=== PATIENT | female | born 1945 | race Caucasian/White ===

== ENCOUNTER → 2018-02-11 16:42 | Outpatient (CLI) | payer MEDICARE, SELFPAY ==
[2018-02-11 17:38] LABS: Absolute Lymphocyte Count 2.69 X10^3/ul (0.83-4.51); Basophil# 0.02 X10^3/uL; Basophil% 0.2 % (0-1); Eosinophil# 0.74 X10^3/uL; Eosinophils% 7.3 % (0-5); Hematocrit 41.5 % (37-47); Hemoglobin 13.6 g/dl (12.0-15.0); Lymphocyte # 2.69 X10^3/ul (4.0); Lymphocyte % 26.7 % (19-41); Mean Corp Hgb Conc 32.8 g/gl (32-36); Mean Corpuscular Hgb 28.2 pg (27.0-32.0); Mean Corpuscular Volume 86.1 fL (81-99); Mean Platelet Vol. 9.5 fl (6.2-12.0); Monocyte# 0.65 X10^3/uL; Monocyte% 6.5 % (0-10); Neutrophil # 5.95 X10^3/uL (2.7-7.7); Neutrophil % 59.1 % (47-70); Platelet Count 297 K/mm3 (150-450); RBC Distribution Width CV 16.4 % (11.6-14.6); RBC Distribution Width SD 51.7 fl (35.1-43.9); Red Blood Count 4.82 M/mm3 (4.2-5.4); White Blood Count 10.1 K/mm3 (4.4-11.0)
[2018-02-11 17:39] LABS: POSITIVE COUNT NO; POSITIVE DIFFERENTIAL NO; POSITIVE MORPHOLOGY NO
[2018-02-11 18:18] LABS: ALB/GLOB Ratio 0.8 RATIO (0.9-2.4); AST(SGOT) 12 U/L (15-37); Alanine Aminotransfer ALT/SGPT 16 U/L (13-56); Albumin, Serum 3.5 g/dL (3.2-5.0); Alkaline Phosphatase 87 U/L (45-117); Anion Gap 10 (5-15); BUN 13 mg/dL (7-18); BUN/Creat Ratio 19.6 RATIO (10-20); Calcium,Total 9.1 mg/dL (8.5-10.1); Chloride 104 mmol/L (98-107); Creatinine, Serum 0.66 mg/dL (0.55-1.02); EST Glomerular Filtration Rate 93 mL/min (>60); Est Glom Filt Rate - Afr Amer 113 mL/min (>60); Globulin 4.3 g/dL (2.2-4.2); Glucose 96 mg/dL (74-106); Potassium 3.8 mmol/L (3.5-5.1); Protein, Total 7.8 g/dL (6.4-8.2); Sodium Level 142 mmol/L (136-145); Thyroid Stim Hormone (TSH) 1.07 uIU/mL (0.358-3.74)
[2018-02-12 10:52] LABS: Vitamin D,25 Hydroxy 29.1 ng/mL (29.95-100.01)
[2018-02-13 10:20] LABS: Hep C Antibodies <0.1 s/co ratio (0.0-0.9)
== END ==
PROVIDERS: Family Provider Family Medicine Geriatric Medicine; PCP Family Medicine Geriatric Medicine; Visit Provider Family Medicine Geriatric Medicine
DX: R53.83 Other fatigue (principal); E55.9 Vitamin D deficiency, unspecified; Z13.89 Encounter for screening for other disorder
CPT/HCPCS: 36415; 80053; 82306; 84443; 85025; 86803

== ENCOUNTER → 2018-03-13 15:07 | Outpatient (CLI) | payer MEDICARE, SELFPAY ==
--- NOTE | 2018-03-13 15:09 | BI_ITS ---
MAMMOGRAPHY - BILATERAL SCREENING REASON FOR EXAM: Female, 72 years old. Routine annual screening examination. PERTINENT HISTORY: Non-contributory. TECHNIQUE: Digital bilateral breast gabriella (3D mammographic acquisition) in the CC and MLO projections. 2-D mediolateral oblique (MLO) and craniocaudad (CC) views of both breasts were obtained. CAD: Full Field Digital Mammography with Computer Added Detection was performed. COMPARISON: Comparison is made with prior study dated February 02, 2016 and December 10, 2013. FINDINGS: Breast Composition: The breasts are heterogeneously dense, which may obscure small masses. There are no dominant masses or suspicious calcifications. No other significant abnormalities are identified. There has been no significant change since the prior study. BI/SCREENING MAMM (CAD), BILAT IMPRESSION: Stable bilateral screening mammogram. Yearly follow-up mammogram recommended. (A) ASSESSMENT CATEGORY: BIRADS Category 1: Negative. A letter regarding these results will be sent to the patient by the facility within 30 days. Approximately 10% of breast cancers are not detected by mammography. A normal mammogram should not delay biopsy of a clinically suspicious abnormality. [id number] Electronically Signed: Mao Rodgers MD at 8:08 EDT Tel [phone], Service support ,
--- NOTE | 2018-03-13 15:11 | BD_ITS ---
STUDY: DUAL ENERGY X-RAY ABSORPTIOMETRY / DXA REASON FOR EXAM: Female, 72 years old. The patient is postmenopausal. Loss of height. TECHNIQUE: Bone Mineral Density (BMD) measurements of lumbar spine and bilateral hips were obtained. COMPARISON: Comparison is made with prior study dated February 02, 2016. FINDINGS: Lumbar Spine (L1-L4): g/cm2 (1.155) / T-score (-0.2) / Z-score (1.5) Findings are suggestive of normal bone density with a low fracture risk. Increased thoracic kyphosis. Left Femur Total: g/cm2 (0.690) / T-score (-2.5) / Z-score (-1.0) Left Femoral Neck: g/cm2 (0.679) / T-score (-2.6) / Z-score (-0.8) Right Femur Total: g/cm2 (0.691) / T-score (-2.5) / Z-score (-1.0) Right Femoral Neck: g/cm2 (0.785) / T-score (-1.8) / Z-score (-0.1) The T-Scores on the most recent prior examination were: Lumbar Spine (L1-L4): There has been improvement of bone density since the previous examination. Left Femur Total: which represents a worsening of 7.9%. Right Femur Total: which represents no significant change. . BD/Dexa Bone Density Study IMPRESSION: The patient is considered osteoporotic as outlined below according to World Alfredo Organization (WHO) criteria with a high fracture risk. There has been worsening of bone density since the previous examination. Reference Information: The T-score is the number of standard deviations above or below the standard which is normal for young adults at their peak bone mineral density. The World Health Organization (WHO) interprets the T-scores as follows: Above -1 Normal bone density Between -1 and -2.5 Osteopenia Equal to / or below -2.5 Osteoporosis As a practical clinical guideline, osteopenia may be graded as follows: Mild -1 through -1.5 Moderate -1.6 through -2.0 Severe -2.1 through -2.4 The Z-score is the number of standard deviations above or below age-matched controls. A Z-score of less than -1.5 would be considered abnormal. References: 1. NIH Osteoporosis and Related Bone Diseases http://www.osteo.org 2. International Society for Clinical Densitometry http://www.iscd.org 3. National Osteoporosis Foundation http://www.nof.org Electronically Signed: Mao Rodgers MD at 10:00 EDT Tel [phone], Service support ,
== END ==
PROVIDERS: Family Provider Family Medicine Geriatric Medicine; PCP Family Medicine Geriatric Medicine; Visit Provider Family Medicine Geriatric Medicine
DX: Z12.31 Encounter for screening mammogram for malignant neoplasm of breast (principal); Z78.0 Asymptomatic menopausal state
CPT/HCPCS: 77063; 77067; 77080

== ENCOUNTER → 2018-03-21 18:16 | Outpatient (CLI) | payer MEDICARE, SELFPAY ==
--- NOTE | 2018-03-21 18:21 | CT_ITS ---
STUDY: CT CHEST WITHOUT CONTRAST REASON FOR EXAM: Female, 72 years old. COPD. History of tobacco use. RADIATION DOSAGE (If Supplied By Facility): CTDIvol = ( 9.64 ) mGy, DLP = ( 325.16 ) mGycm TECHNIQUE: Transaxial imaging was performed without the administration of intravenous contrast material. Individualized dose optimization techniques were used for this CT. COMPARISON: None. FINDINGS: : TRACHEA, THYROID, ESOPHAGUS: No tracheomalacia,stricture or wall thickening. Thyroid and esophagus are normal CARDIOVASCULAR SYSTEM:The thoracic aorta is normal with no aneurysm, dissection or developmental anomalies. The pulmonary trunk and the left and right pulmonary arteries and their lobar and segmental branches do not show any abnormal and persistent filling defects in them. There is therefore no evidence of pulmonary embolism. The heart is normal. There are no venous anomalies SAYRA AND LYMPH NODES: No hilar masses and no mediastinal, hilar, axillary or supraclavicular adenopathy LUNGS, LOW-ATTENUATION: No traction bronchiectasis, honeycombing,, lung cysts or cavitations. Centrilobular emphysematous changes in the upper lobes. LUNGS, HIGH ATTENUATION: A 5.3 mm nodule in the right upper lobe and a 5.6 mm nodule in the left upper lobe. No ground glass opacities. No consolidation no masses. LUNGS, MOSAIC/CRAZY PAVING: Not evident PLEURA AND CHEST WALL: No plural effusions, pneumothoraces,rib fractures or any osteolytic/osteoblastic changes . The soft tissue chest wall including the breasts are normal UPPER ABDOMEN: Unremarkable . CT/Chest without Contrast IMPRESSION: Mild centrilobular emphysematous changes in both upper lobes. Small 5.3 and 5.6 mm nodules in the left and right upper lobes respectively. Electronically Signed: Aki Sommer, at 7:41 EDT Tel , Service support ,
== END ==
PROVIDERS: Family Provider Family Medicine Geriatric Medicine; PCP Family Medicine Geriatric Medicine; Visit Provider Family Medicine Geriatric Medicine
DX: Z87.891 Personal history of nicotine dependence (principal)
CPT/HCPCS: 71250

== ENCOUNTER 2018-07-31 13:27 | Emergency (ER) | payer MEDICARE, SELFPAY ==
[2018-07-31 13:28] VITALS: BP 139/82; PULSE 102; RESP 33; TEMP 36.9; O2SAT 93; BMI 27.0
[2018-07-31 13:31] VITALS: BP 132/84; PULSE 101; RESP 33; O2SAT 94
--- NOTE | 2018-07-31 13:58 | RAD_ITS ---
STUDY: X-RAY CHEST REASON FOR EXAM: Female, 73 years old. Chest pain and shortness of breath. TECHNIQUE: Single AP portable view of the chest. COMPARISON: Comparison is made with prior study dated September 21, 2016. FINDINGS: EKG electrodes are seen. Hyperinflation. Mild increased linear markings at the lung bases suggestive of mild basilar scarring. There is no demonstrated pleural abnormality. Normal size heart. Normal mediastinum and jovanny. Normal visualized pulmonary arteries. Normal visualized aortic arch and descending thoracic aorta. Normal visualized thoracic spine. Normal visualized ribs, clavicles, and shoulders. There is no demonstrated abnormality of the visualized soft tissue structures of the upper abdomen. RAD/Chest 1 View (Portable) IMPRESSION: Hyperinflation. No acute abnormality is seen. Electronically Signed: Mao Rodgers MD at 14:29 EST Tel [phone], Service support ,
--- NOTE | 2018-07-31 14:06 | ED.DCSUM_ITS ---
- ER Visit Summary Date of Service: 07/31/18 Chief Complaint: Coughing History of Present Illness: The patient is a 73 F with coughing for the past week. It is getting worse. She says her ribs hurt she feels terrible. She is coughing up sputum. She has a history of COPD and uses oxygen at home. Her felicity e pulse ox read 83%. She is normally on 3-4 L. She denies any recent antibiotics or oral steroids. Denies any chest pain, nausea, vomiting, or lightheadedness. Denies fevers. Physical Examination: Afebrile vital signs unremarkable except for her heart rate is 101. Pulse ox 94% on 3 L. She appears in no acute distress. HEENT exam unremarkable. Wheezing in all pope with expiration. Heart regular. Abdomen soft. Skin normal. Calves soft and supple. Test Results: Chest x-ray and laboratory studies are pending. Emergency Department Course and Treatment: Patient will be monitored. She is on 3.5 L by nasal cannula and is doing well. Treated with Solu-Medrol and a DuoNeb treatment. X-ray and labs pending. X-ray shows hyperinflation but nothing acute. Laboratory studies show a white count of 13.6 but otherwise normal. Patient felt better after treatment. She would like to go home. She ambulated to the restroom and felt well. She did have some borderline oxygen levels. She was 88% on room air. She said she is comfortable using her oxygen at home and she has a portable oxygen machine. She would still like to go home. I advised her to return right away if she has new or worsening issues. She will be placed on a course of prednisone and doxycycline. On reevaluation, pulse ox 93% on room air. Patient alert and oriented. No acute distress. Smiling and appropriate. Treatment Plan: As above Disposition: Discharged Impression: 1. COPD exacerbation This note was generated with [employer] dictation software. It may contain incorrect words, spelling, and punctuation that were not noted in review of the chart p rior to signing ED Disposition - Plan for ED Patient: Chief Complaint: Shortness of Breath Referrals: Shayne Winter Chi, MD [Primary Care Provider] -
[2018-07-31 14:14] LABS: Absolute Lymphocyte Count 1.39 X10^3/ul (0.83-4.51); Absolute Neutrophil Count 10.6 X10^3/uL (2.0-7.7); Basophil# 0.02 X10^3/uL; Basophil% 0.1 % (0-1); Eosinophil# 0.29 X10^3/uL; Eosinophils% 2.1 % (0-5); Hematocrit 41.6 % (37-47); Hemoglobin 13.7 g/dl (12.0-15.0); Lymphocyte # 1.39 X10^3/ul (4.0); Lymphocyte % 10.2 % (19-41); Mean Corp Hgb Conc 32.9 g/gl (32-36); Mean Corpuscular Hgb 29.8 pg (27.0-32.0); Mean Corpuscular Volume 90.6 fL (81-99); Monocyte# 1.28 X10^3/uL; Monocyte% 9.4 % (0-10); Neutrophil % 78.1 % (47-70); Platelet Count 297 K/mm3 (150-450); RBC Distribution Width CV 16.1 % (11.6-14.6); RBC Distribution Width SD 51.9 fl (35.1-43.9); Red Blood Count 4.59 M/mm3 (4.2-5.4); White Blood Count 13.6 K/mm3 (4.4-11.0)
[2018-07-31 14:19] LABS: POSITIVE COUNT NO; POSITIVE DIFFERENTIAL NO; POSITIVE MORPHOLOGY NO
[2018-07-31 14:20] VITALS: PULSE 100; RESP 25; O2SAT 92
[2018-07-31 14:20] LABS: Anion Gap 9 (5-15); BUN 12 mg/dL (7-18); BUN/Creat Ratio 18.5 RATIO (10-20); Calcium,Total 8.5 mg/dL (8.5-10.1); Chloride 104 mmol/L (98-107); Creatinine, Serum 0.65 mg/dL (0.55-1.02); EST Glomerular Filtration Rate 96 mL/min (>60); Est Glom Filt Rate - Afr Amer 116 mL/min (>60); Estimated Creatinine Clearance 42.07 ml/min; Glucose 90 mg/dL (74-106); Potassium 3.5 mmol/L (3.5-5.1); Sodium Level 139 mmol/L (136-145)
[2018-07-31] MEDS: MethylPREDNISolone 125 MG/2 ML Vial IV (14:38)
[2018-07-31] MEDS: Ipratropium/Albuterol Sulfate 3 ML AMPUL.NEB INHALATION (14:38)
[2018-07-31 14:39] VITALS: BP 121/77; PULSE 102; RESP 29; O2SAT 93
[2018-07-31 16:03] VITALS: BP 140/77; PULSE 92; RESP 31; O2SAT 88
[2018-07-31 16:06] VITALS: BP 136/65; PULSE 93; RESP 16; O2SAT 89
--- NOTE | 2018-07-31 16:06 | ED.RN ---
AWARE OF OXYGEN LEVEL WITHOUT 02. PT WANTS TO GO HOME STATES THAT SHE HAS O2 AT HOME.
--- NOTE | 2018-07-31 16:18 | ED.DEP ---
ED Disposition - Plan for ED Patient: Chief Complaint: Shortness of Breath Instructions: ED COPD Flare Prescriptions: Prednisone 50 mg PO UD 4 Days #20 tab Doxycycline Monohydrate 100 mg PO BID #20 cap Referrals: Shayne Winter Chi, MD [Primary Care Provider] -
[2018-07-31] MEDS: Doxycycline 100 MG CAPSULE PO (16:26)
== END 2018-07-31 16:34 | disposition home or self-care (01) ==
LOC: ED 14:16
PROVIDERS: Emergency Provider Emergency Medicine; Family Provider Family Medicine Geriatric Medicine; PCP Family Medicine Geriatric Medicine
DX: J44.1 Chronic obstructive pulmonary disease with (acute) exacerbation (principal); E78.00 Pure hypercholesterolemia, unspecified; Z72.0 Tobacco use
CPT/HCPCS: 71045; 80048; 85025; 94640; 99285; J7030; A4216

== ENCOUNTER → 2018-10-03 12:02 | Outpatient (CLI) | payer MEDICARE, SELFPAY ==
[2018-10-03 12:47] LABS: Absolute Lymphocyte Count 2.64 X10^3/ul (0.83-4.51); Absolute Neutrophil Count 5.2 X10^3/uL (2.0-7.7); Basophil# 0.03 X10^3/uL; Basophil% 0.3 % (0-1); Eosinophil# 0.93 X10^3/uL; Eosinophils% 9.9 % (0-5); Hematocrit 43.2 % (37-47); Hemoglobin 13.7 g/dl (12.0-15.0); Lymphocyte # 2.64 X10^3/ul (4.0); Lymphocyte % 28.1 % (19-41); Mean Corp Hgb Conc 31.7 g/gl (32-36); Mean Corpuscular Volume 91.5 fL (81-99); Mean Platelet Vol. 9.9 fl (6.2-12.0); Monocyte# 0.61 X10^3/uL; Monocyte% 6.5 % (0-10); Neutrophil # 5.15 X10^3/uL (2.7-7.7); Platelet Count 269 K/mm3 (150-450); RBC Distribution Width CV 15.5 % (11.6-14.6); RBC Distribution Width SD 51.6 fl (35.1-43.9); Red Blood Count 4.72 M/mm3 (4.2-5.4); White Blood Count 9.4 K/mm3 (4.4-11.0)
[2018-10-03 12:50] LABS: POSITIVE COUNT NO; POSITIVE DIFFERENTIAL NO; POSITIVE MORPHOLOGY NO
[2018-10-03 13:17] LABS: AST(SGOT) 16 U/L (15-37); Alanine Aminotransfer ALT/SGPT 22 U/L (13-56); Albumin, Serum 3.6 g/dL (3.2-5.0); Alkaline Phosphatase 69 U/L (45-117); Anion Gap 9 (5-15); BUN 13 mg/dL (7-18); BUN/Creat Ratio 17.4 RATIO (10-20); Calcium,Total 8.6 mg/dL (8.5-10.1); Chloride 107 mmol/L (98-107); Creatinine, Serum 0.75 mg/dL (0.55-1.02); EST Glomerular Filtration Rate 81 mL/min (>60); Est Glom Filt Rate - Afr Amer 98 mL/min (>60); Globulin 3.6 g/dL (2.2-4.2); Glucose 98 mg/dL (74-106); Potassium 4.1 mmol/L (3.5-5.1); Protein, Total 7.2 g/dL (6.4-8.2); Sodium Level 143 mmol/L (136-145); Thyroid Stim Hormone (TSH) 1.03 uIU/mL (0.358-3.74); Vitamin D,25 Hydroxy 30.3 ng/mL (29.95-100.01)
== END ==
PROVIDERS: Family Provider Family Medicine Geriatric Medicine; PCP Family Medicine Geriatric Medicine; Visit Provider Family Medicine Geriatric Medicine
DX: R53.83 Other fatigue (principal); E55.9 Vitamin D deficiency, unspecified
CPT/HCPCS: 36415; 80053; 82306; 84443; 85025

== ENCOUNTER 2018-10-24 14:14 | Inpatient (IN) | payer MEDICARE, SELFPAY ==
[2018-10-24] VITALS (12 sets, daily range): BP systolic 108–135; BP diastolic 60–71; PULSE 82–109; RESP 18–24; TEMP 36.6–37.2; O2SAT 79–95; BMI 27.7; BMI 26.6
--- NOTE | 2018-10-24 14:23 | EKG12_ITS ---
Test Reason : SOB Blood Pressure : / mmHG Vent. Rate : 100 BPM Atrial Rate : 100 BPM P-R Int : 118 ms QRS Dur : 082 ms QT Int : 330 ms P-R-T Axes : 069 -09 061 degrees QTc Int : 425 ms Normal sinus rhythm Normal ECG Confirmed by YANNICK RAMÍREZ, EMERALD ([id number]), deputy editor in chief RADHA GORE ([id number]) on 10/28/2018 8:49:02 AM Referred By: VERÓNICA Confirmed By:EMERALD LANIER MD
--- NOTE | 2018-10-24 14:23 | RAD_ITS ---
STUDY: X-RAY CHEST REASON FOR EXAM: Female, 73 years old. Hypoxia, wheezing TECHNIQUE: PA and lateral views of the chest. COMPARISON: 07/31/2018 FINDINGS: EKG leads overlie the chest Lungs are expanded with superimposed diffuse interstitial edema not present on the previous study. Findings suggest CHF. Follow-up recommended to assure complete resolution. Normal size heart. Normal mediastinum and jovanny. Normal visualized pulmonary arteries. Normal visualized aortic arch and descending thoracic aorta. There are diffuse degenerative changes of the visualized thoracic spine. Normal visualized ribs, clavicles, and shoulders. There is no demonstrated abnormality of the visualized soft tissue structures of the upper abdomen. RAD/Chest PA and Lateral IMPRESSION: CHF, follow-up recommended to assure complete resolution Electronically Signed: Angel Ramachandran MD at 15:49 EST , Service support ,
[2018-10-24] MEDS: 0.9% Normal Saline 1,000 ML 150 ML IV (14:36)
[2018-10-24] MEDS: Albuterol 2.5 MG/3 ML VIAL.NEB. INHALATION ×3 (14:36)
[2018-10-24] MEDS: MethylPREDNISolone 125 MG/2 ML Vial 60 MG IV (14:36)
[2018-10-24 14:40] LABS: Absolute Lymphocyte Count 0.79 X10^3/ul (0.83-4.51); Absolute Neutrophil Count 9.1 X10^3/uL (2.0-7.7); Basophil# 0.02 X10^3/uL; Basophil% 0.2 % (0-1); Eosinophil# 0.02 X10^3/uL; Eosinophils% 0.2 % (0-5); Hematocrit 39.4 % (37-47); Hemoglobin 12.6 g/dl (12.0-15.0); Lymphocyte # 0.79 X10^3/ul (4.0); Lymphocyte % 6.6 % (19-41); Mean Corpuscular Hgb 28.6 pg (27.0-32.0); Mean Corpuscular Volume 89.5 fL (81-99); Mean Platelet Vol. 9.4 fl (6.2-12.0); Monocyte# 1.99 X10^3/uL; Monocyte% 16.7 % (0-10); Neutrophil # 9.06 X10^3/uL (2.7-7.7); Platelet Count 253 K/mm3 (150-450); RBC Distribution Width CV 15.8 % (11.6-14.6); RBC Distribution Width SD 51.7 fl (35.1-43.9); White Blood Count 11.9 K/mm3 (4.4-11.0)
[2018-10-24 14:47] LABS: Differential Indicated SCAN CRITERIA MET; POSITIVE COUNT NO; POSITIVE DIFFERENTIAL YES; POSITIVE MORPHOLOGY NO
[2018-10-24 14:55] LABS: ALB/GLOB Ratio 0.6 RATIO (0.9-2.4); AST(SGOT) 31 U/L (15-37); Alanine Aminotransfer ALT/SGPT 41 U/L (13-56); Albumin, Serum 2.7 g/dL (3.2-5.0); Alkaline Phosphatase 113 U/L (45-117); Anion Gap 10 (5-15); BUN 9 mg/dL (7-18); BUN/Creat Ratio 15.7 RATIO (10-20); Calcium,Total 8.4 mg/dL (8.5-10.1); Chloride 103 mmol/L (98-107); Creatinine, Serum 0.57 mg/dL (0.55-1.02); EST Glomerular Filtration Rate 110 mL/min (>60); Est Glom Filt Rate - Afr Amer 133 mL/min (>60); Estimated Creatinine Clearance 42.07 ml/min; Globulin 4.4 g/dL (2.2-4.2); Glucose 101 mg/dL (74-106); Potassium 3.5 mmol/L (3.5-5.1); Protein, Total 7.1 g/dL (6.4-8.2); Sodium Level 138 mmol/L (136-145)
[2018-10-24 14:56] LABS: Allen Test POS; Base Excess -1 mmol/L (-2 to +2); Bicarbonate 23.9 mmol/L (22-26); Blood Gas Specimen Type ART; FI02 50; PO2 67 mmHG (75-100); SITE R Radial; SO2 93 % (95-99); Time Given 1449; Total Carbon Dioxide 25 mmol/L; pCO2 39.8 mmHg (35-45); pH 7.39 (7.35-7.45)
[2018-10-24 15:01] LABS: Lactic Acid 1.1 mmol/L (0.4-2.0)
--- NOTE | 2018-10-24 15:01 | CPS ---
Pt placed on 6L HFNC
--- NOTE | 2018-10-24 15:46 | ED.VISSUMM ---
- ER Visit Summary Date of Service: 10/24/18 Chief Complaint: Shortness of breath starting this past Saturday History of Present Illness: The patient is a 73 F who has history of COPD requiring oxygen, hypercholesterolemia, end-stage renal disease, GERD, who acquired pneumonia and restless leg syndrome presents because of increased shortness of breath that started this past Saturday. She reports productive cough of green colored sputum. She was given a burst of prednisone within the last 3-6 months. She reports subjective fever with chills. She denies ocular, visual auditory symptoms. She does report palpitations, productive cough, dyspnea on exertion. Denies orthopnea PND. She denies history of PE or DVT. She denies leg pain, or swelling. She denies GI or symptoms. She denies myalgias arthralgias. She denies rash. Denies headache, generalized weakness, paresthesia, anesthesia or weakness in her extremities. She denies urticaria. She has history of anaphylaxis to several antibiotics. Physical Examination: Vital signs are remarkable for a heart rate of 107, respiratory 22 and pulse ox of 89% and 50% Venturi mask. Patient's breathing is labored. In my opinion she is breathing faster than 23 times a minute. Head is atraumatic normocephalic. Pupils are equal round reactive. Extraocular muscles are intact. TMs are pearly white with landmarks noted. Nares patent with no drainage. Posterior pharynx without erythema or exudate. Uvula is midline. There is no dysphonia or dysphasia. Trachea is midline. There is no stridor with auscultation of the neck. Heart is rapid and regular without murmur, gallop or rub lungs reveal expiratory wheezing and inspiratory rales bilaterally. There is no egophony. Abdomen soft nontender. There is no asymmetry, swelling, discoloration, leg vein distention, palpable cords or tenderness along the distribution of the deep venous system. Patient is alert and oriented x3 with a nonfocal neurologic exam. Test Results: EKG revealed a sinus rhythm rate of 100 and is normal. NE interval, Q islam QT interval normal. [place] is normal. Chest x-ray reveals chronic changes. Film performed today is underpenetrated compared to prior. There is no cardiomegaly, mediastinum is unremarkable. Osseous structures are normal. White count is 11.9 thousand with 76 segs. Electro panels unremarkable. Hepatic unremarkable. Blood gas reveals a pH of 7.39, CO2 of 39.8, PaO2 of 67 and bicarb 23.9 with a base excess of -1 on 50% Venturi mask. This represents respiratory failure with hypoxia. Emergency Department Course and Treatment: IV was established. Workup was undertaken to evaluate pneumonia versus COPD versus other cause. She did receive 60 mg Solu-Medrol IV push, she was treated with Azactam and azithromycin because of her allergies. Her reaction is anaphylaxis. She received multiple aerosols. She was reassessed. She is still wheezing. She is still tachypneic and tachycardic. Treatment Plan: Contact the hospitalist for observation/admission Disposition: Medical surge unit Impression: 1. Respiratory failure with hypoxia. 2. Exacerbation of COPD with bronchospasm 3. Sinus tachycardia on monitor 4. Exacerbation of chronic bronchitis This note was generated with [employer] dictation software. It may contain incorrect words, spelling, and punctuation that were not noted in review of the chart prior to signing ED Disposition - Plan for ED Patient: Referrals: Shayne Winter Chi, MD [Primary Care Provider] -
--- NOTE | 2018-10-24 15:53 | ED.DCSUM_ITS ---
- ER Visit Summary Date of Service: 10/24/18 Chief Complaint: Shortness of breath starting this past Saturday History of Present Illness: The patient is a 73 F who has history of COPD requiring oxygen, hypercholesterolemia, end-stage renal disease, GERD, who acquired pneumonia and restless leg syndrome presents because of increased shortness of breath that started this past Saturday. She reports productive cough of green colored sputum. She was given a burst of prednisone within the last 3-6 months. She reports subjective fever with chills. She denies ocular, visual auditory symptoms. She does report palpitations, productive cough, dyspnea on exertion. Denies orthopnea PND. She denies history of PE or DVT. She denies leg pain, or swelling. She denies GI or symptoms. She denies myalgias arthralgias. She denies rash. Denies headache, generalized weakness, paresthesia, anesthesia or weakness in her extremities. She denies urticaria. She has history of anaphylaxis to several antibiotics. Physical Examination: Vital signs are remarkable for a heart rate of 107, respiratory 22 and pulse ox of 89% and 50% Venturi mask. Patient's breathing is labored. In my opinion she is breathing faster than 23 times a minute. Head is atraumatic normocephalic. Pupils are equal round reactive. Extraocular muscles are intact. TMs are pearly white with landmarks noted. Nares patent with no drainage. Posterior pharynx without erythema or exudate. Uvula is midline. There is no dysphonia or dysphasia. Trachea is midline. There is no stridor with auscultation of the neck. Heart is rapid and regular without murmur, gallop or rub lungs reveal expiratory wheezing and inspiratory rales bilaterally. There is no egophony. Abdomen soft nontender. There is no asymmetry, swelling, discoloration, leg vein distention, palpable cords or tenderness along the distribution of the deep venous system. Patient is alert and oriented x3 with a nonfocal neurologic exam. Test Results: EKG revealed a sinus rhythm rate of 100 and is normal. NC inter cara, Q cheondoism QT interval normal. [place] is normal. Chest x-ray reveals chronic changes. Film performed today is underpenetrated compared to prior. There is no cardiomegaly, mediastinum is unremarkable. Osseous structures are normal. White count is 11.9 thousand with 76 segs. Electro panels unremarkable. Hepatic unremarkable. Blood gas reveals a pH of 7.39, CO2 of 39.8, PaO2 of 67 and bicarb 23.9 with a base excess of -1 on 50% Venturi mask. This represents respiratory failure with hypoxia. Emergency Department Course and Treatment: IV was established. Workup was undertaken to evaluate pneumonia versus COPD versus other cause. She did receive 60 mg Solu-Medrol IV push, she was treated with Azactam and azithromycin because of her allergies. Her reaction is anaphylaxis. She received multiple aerosols. She was reassessed. She is still wheezing. She is still tachypneic and tachycardic. Treatment Plan: Contact the hospitalist for observation/admission Disposition: Medical surge unit Impression: 1. Respiratory failure with hypoxia. 2. Exacerbation of COPD with bronchospasm 3. Sinus tachycardia on monitor 4. Exacerbation of chronic bronchitis This note was generated with [employer] dictation software. It may contain incorrect words, spelling, and punctuation that were not noted in review of the chart prior to signing ED Disposition - Plan for ED Patient: Referrals: Shayne Winter Chi, MD [Primary Care Provider] -
--- NOTE | 2018-10-24 16:46 | HP.PCM_ITS ---
Problem List (1) COPD (chronic obstructive pulmonary disease) Status: Chronic (2) GERD (gastroesophageal reflux disease) Status: Chronic (3) HLD (hyperlipidemia) Status: Chronic (4) History of chronic respiratory failure Status: Chronic (5) RLS (restless legs syndrome) Status: Chronic (6) Tobacco abuse Status: Chronic History of Present Illness Date of Admission: 10/24/18 Chief Complaint: Shortness of breath. The patient is a 73 year old F who presents emergency room due to shortness of breath, cough, fever, chills which she reports began Saturday. She reports cough productive of green sputum. Reports associated wheezing. Denies exposure to sick contacts. She complains of generalized body aches. She has a past medical history of COPD with chronic hypoxic respiratory failure requiring 3 L nasal cannula, tobacco dependence, restless leg syndrome, hyperlipidemia, GERD. She denies chest pain. Denies lower extremity swelling. Denies other associated symptoms. Past Medical History Past Medical History (Chronic Problems): Chronic Problems Tobacco abuse (Chronic) RLS (restless legs syndrome) (Chronic) History of chronic respiratory failure (Chronic) HLD (hyperlipidemia) (Chronic) GERD (gastroesophageal reflux disease) (Chronic) COPD (chronic obstructive pulmonary disease) (Chronic) Allergies bupropion HCl [From Wellbutrin] Allergy (Verified 10/24/18 14:23) Anaphylaxis cephalexin monohydrate [From Keflex] Allergy (Verified 10/24/18 14:23) Anaphylaxis levofloxacin Allergy (Verified 10/24/18 14:23) Anaphylaxis Penicillins [PCN] Allergy (Verified 10/24/18 14:23) Anaphylaxis Home Medications: Ambulatory Orders Medication Instructions Recorded Esomeprazole Magnesium 40 mg PO DAILY 09/19/16 Furosemide [Lasix] 40 mg PO DAILY 09/19/16 Gabapentin [Neurontin] 300 mg PO BIDCM 09/19/16 Roflumilast [Daliresp] 500 mcg PO DAILY 09/19/16 Ropinirole HCl [Requip] 0.5 mg PO QHS 09/19/16 Umeclidinium [place] Inhaler 1 puff IH DAILY 09/19/16 [Incruse Ellipta Inhaler] Alendronate Sodium [Fosamax] 70 mg PO QWEEK 10/24/18 Atorvastatin Calcium [Lipitor] 20 mg PO QHS 10/24/18 Famotidine 40 mg PO DAILY 10/24/18 Fluticasone/Vilanterol [Breo 1 puff INHALATION DAILY 10/24/18 Ellipta 200-25 Mcg INH] Ipratropium/Albuterol Sulfate 3 ml INHALATION Q4H.RT 10/24/18 [Duoneb] Loratadine 10 mg PO DAILY 10/24/18 Paroxetine HCl [Paxil] 40 mg PO DAILY 10/24/18 Surgical History: appendectomy, cholecystectomy, hysterectomy, tonsillectomy, - - Cataract surgery. Psychiatric History: No pertinent psych hx FAMILY PRACTICE NURSE PRACTITIONER History: No pertinent FAMILY PRACTICE NURSE PRACTITIONER history Lives: Alone Smoking Status: Current every day smoker Tobacco Use: Cigarettes Alcohol: None Drugs: None - *Family History Maternal History Items: - - Mother of history w/ lung clot. Paternal History Items: COPD - Father w/ COPD, tobacco user., - - Colon cancer. Review of Systems Constitutional: Reports: Chills, Fever, Malaise. Denies: Weight Change HEENT: Denies: Head Aches, Sinus Congestion, Sinus Drainage Cardiovascular: Denies: Chest Pain, Edema, Light Headedness, Palpitations, Syncope Respiratory: Reports: Cough, Shortness of Breath, Sputum production Gastrointestinal: Denies: Abdominal Pain, Nausea, Vomiting Genitourinary: Denies: Dysuria Musculoskeletal: Denies: Joint Pain, Joint Tenderness Skin: Denies: Rash, Wounds Neurological: Denies: Numbness, Tingling, Focal weakness Psychiatric: Denies: Anxiety, Depression, Homicidal Ideations, Suicidal Ideations Hematologic/ Lymphatic: Denies: Easy Bruising, Easy Bleeding VTE Information - Inpt Only VTE Present on Admission: No VTE Mechan Device Prophylaxis: None VTE Pharm Prophylaxis ordered?: Yes - Physical Exam General: Alert, Oriented x3, Cooperative HEENT: Atraumatic, PERRLA, EOMI, Normocephalic Neck: Supple, No JVD, Negative Carotid Bruits Lungs: Diminished, Rhonchi, Wheezes Cardiovascular: Regular Rhythm, Normal S1, Normal S2, No murmurs, Tachycardic Abdomen: Bowel Sounds Present, Soft, Non Tender, Non-Distended Extremities: No clubbing, No cyanosis, No edema, Capillary Refill Less than 3 Seconds Skin: No rashes, No breakdown Musculoskeletal: No Tenderness to Palpation of Joints or Extremities Neurological: Cranial nerves II-XII grossly intact, Neuro grossly intact Psych/Mental Status: Normal Affect, Appropriate Vital Signs Temp Pulse Resp BP Pulse Ox 99 F 107 H 24 H 125/64 H 90 10/24/18 14:15 10/24/18 16:35 10/24/18 16:35 10/24/18 16:35 10/24/18 16:35 Oxygen Flow Rate (L/min) 6 Oxygen Delivery Method Nasal Cannula Weight: 156 lb 8.451 oz Body Mass Index (BMI) 27.7 Laboratory Tests Past 24 Hrs 10/24/18 10/24/18 10/24/18 14:20 14:20 14:20 WBC 11.9 H RBC 4.40 Hgb 12.6 Hct 39.4 MCV 89.5 MCH 28.6 MCHC 32.0 RDW 15.8 H RDW Differential 51.7 H Plt Count 253 MPV 9.4 Immature Gran % (Auto) 0.300 Neut % (Auto) 76.0 H Lymph % (Auto) 6.6 L [place] % (Auto) 16.7 H Eos % (Auto) 0.2 Baso % (Auto) 0.2 Absolute Neuts (auto) 9.1 H Absolute Lymphs (auto) 0.79 L Total Counted Not Reportable Diff Path Review May foll Specimen Type Sample Site pH Bicarbonate Actual POC Total CO2 Base Excess O2 Saturation O2 % ABG pCO2 ABG pO2 Joon Test O2 Delivery Device Blood Gas Notified Whom Blood Gas Notified Time Sodium 138 Potassium 3.5 Chloride 103 Carbon Dioxide 25.0 Anion Gap 10 BUN 9 Creatinine 0.57 Estim Creat Clear Calc 42.07 Est GFR (MDRD) Af Amer 133 Est GFR (MDRD) Non-Af 110 BUN/Creatinine Ratio 15.7 Glucose 101 Lactic Acid 1.1 Calcium 8.4 L Total Bilirubin 0.60 AST 31 ALT 41 Alkaline Phosphatase 113 Total Protein 7.1 Albumin 2.7 L Globulin 4.4 H Albumin/Globulin Ratio 0.6 L 10/24/18 14:50 WBC RBC Hgb Hct MCV MCH MCHC RDW RDW Differential Plt Count MPV Immature Gran % (Auto) Neut % (Auto) Lymph % (Auto) [place] % (Auto) Eos % (Auto) Baso % (Auto) Absolute Neuts (auto) Absolute Lymphs (auto) Total Counted Diff Path Review Specimen Type ART Sample Site R Radial pH 7.39 Bicarbonate Actual 23.9 POC Total CO2 25 Base Excess -1 O2 Saturation 93 L O2 % 50 ABG pCO2 39.8 ABG pO2 67 L Joon Test POS O2 Delivery Device Vent Mask Blood Gas Notified Whom ED MD Blood Gas Notified Time 1449 Sodium Potassium Chloride Carbon Dioxide Anion Gap BUN Creatinine Estim Creat Clear Calc Est GFR (MDRD) Af Amer Est GFR (MDRD) Non-Af BUN/Creatinine Ratio Glucose Lactic Acid Calcium Total Bilirubin AST ALT Alkaline Phosphatase Total Protein Albumin Globulin Albumin/Globulin Ratio Assessment/Plan 1. Acute on chronic hypoxic respiratory failure secondary to exacerbation of COPD with bronchospasm-patient started on azithromycin and aztreonam in ER. Continue IV azithromycin. IV Solu-Medrol. Albuterol and DuoNeb aerosols. Send sputum for culture. Obtain respiratory panel. Continue supplement oxygen to maintain O2 at or above 90%. Patient chronically wears 3 L nasal cannula. 2. GERD-continue PPI. 3. Hyperlipidemia-continue statin. 4. Restless leg syndrome-continue Requip regimen. 5. Tobacco dependence-encouraged tobacco cessation. 6. Osteoporosis-on Fosamax regimen. 7. Depression-continue Paxil. DVT prophylaxis-Lovenox sc This patient was seen by MILES Garcia under the supervision of Dr. Art.
[2018-10-24] MEDS: Gabapentin 300 MG Capsule PO (17:30)
[2018-10-24] MEDS: 0.9% NaCl Peripheral Flush Adult/Peds IV (17:30)
[2018-10-24] MEDS: Ipratropium/Albuterol Sulfate 3 ML AMPUL.NEB INHALATION ×2 (19:25→23:41)
[2018-10-24] MEDS: Pramipexole Di-HCl 0.25 MG Tablet PO (21:20)
[2018-10-24] MEDS: Atorvastatin Calcium 20 MG Tablet PO (21:20)
[2018-10-25] VITALS (9 sets, daily range): BP systolic 103–120; BP diastolic 55–65; PULSE 70–98; RESP 16–20; TEMP 36.4–36.8; O2SAT 92–97
[2018-10-25] MEDS: Ipratropium/Albuterol Sulfate 3 ML AMPUL.NEB INHALATION ×4 (07:25→19:00)
[2018-10-25 07:33] LABS: Absolute Lymphocyte Count 0.44 X10^3/ul (0.83-4.51); Absolute Neutrophil Count 7.5 X10^3/uL (2.0-7.7); Basophil# 0.07 X10^3/uL; Basophil% 0.8 % (0-1); Hematocrit 35.5 % (37-47); Hemoglobin 11.7 g/dl (12.0-15.0); Lymphocyte # 0.44 X10^3/ul (4.0); Lymphocyte % 5.2 % (19-41); Mean Corpuscular Hgb 29.3 pg (27.0-32.0); Mean Corpuscular Volume 88.8 fL (81-99); Mean Platelet Vol. 9.8 fl (6.2-12.0); Monocyte% 4.8 % (0-10); Neutrophil # 7.48 X10^3/uL (2.7-7.7); Platelet Count 288 K/mm3 (150-450); RBC Distribution Width CV 15.9 % (11.6-14.6); RBC Distribution Width SD 51.5 fl (35.1-43.9); White Blood Count 8.4 K/mm3 (4.4-11.0)
[2018-10-25 07:34] LABS: Differential Indicated SCAN CRITERIA MET; POSITIVE COUNT NO; POSITIVE DIFFERENTIAL YES; POSITIVE MORPHOLOGY NO
--- NOTE | 2018-10-25 07:55 | PCM.PN.HOSP ---
Subjective: Patient is a 73-year-old lady with known COPD who presented to the emergency department with progressive shortness of breath with oxygen saturation in the 70. An assessment of acute on chronic hypoxic respiratory failure made admitted to regular nursing floor for further management Objective: GENERAL: cooperative HEENT: Atraumatic; moist oral mucosa EYES; Anicteric, Normal Conjunctiva NECK; supple, normal thyroid, no distended JVD. RESPIRATORY: Diminished to auscultation bilaterally, CARDIOVASCULAR: Regular S1 S2, no audible murmurs GI: soft, non-tender, normoactive bowel sounds, : No Renal angle tenderness; EXTREMITIES: no clubbing, no cyanosis. MUSCULOSKELETAL: No Joint Tenderness; no muscle waisting NEURO: Awake; no lateralizing signs. SKIN: No Rash PSYCH; Normal affect Vitals/I&O's: Vital Signs Temp Pulse Resp BP Pulse Ox 97.5 F L 70 18 103/62 94 10/25/18 01:29 10/25/18 07:26 10/25/18 07:26 10/25/18 01:29 10/25/18 07:26 Oxygen Flow Rate (L/min) 6 Oxygen Delivery Method Nasal Cannula Weight: 68.084 kg Body Mass Index (BMI) 26.6 Intake and Output for Last 24 Hours 10/23/18 10/24/18 10/25/18 23:59 23:59 23:59 Intake Total 540 / 540 Output Total 400 / 400 Balance 140 / 140 Microbiology Past 72 Hours 10/24/18 19:32 Mucosa - Nose Influenza Types A,B Direct FA (RODNEY) - Final Laboratory Results 10/24/18 14:20: WBC 11.9 H, RBC 4.40, Hgb 12.6, Hct 39.4, MCV 89.5, MCH 28.6, MCHC 32.0, RDW 15.8 H, RDW Differential 51.7 H, Plt Count 253, MPV 9.4, Immature Gran % (Auto) 0.300, Neut % (Auto) 76.0 H, Lymph % (Auto) 6.6 L, [place] % (Auto) 16.7 H, Eos % (Auto) 0.2, Baso % (Auto) 0.2, Absolute Neuts (auto) 9.1 H, Absolute Lymphs (auto) 0.79 L, Total Counted Not Reportable, Diff Path Review January10/24/18 14:20: Sodium 138, Potassium 3.5, Chloride 103, Carbon Dioxide 25.0, Anion Gap 10, BUN 9, Creatinine 0.57, Estim Creat Clear Calc 42.07, Est GFR (MDRD) Af Amer 133, Est GFR (MDRD) Non-Af 110, BUN/Creatinine Ratio 15.7, Glucose 101, Calcium 8.4 L, Total Bilirubin 0.60, AST 31, ALT 41, Alkaline Phosphatase 113, Total Protein 7.1, Albumin 2.7 L, Globulin 4.4 H, Albumin/Globulin Ratio 0.6 L 10/24/18 14:20: Lactic Acid 1.1 10/24/18 14:50: Specimen Type ART, Sample Site R Radial, pH 7.39, Bicarbonate Actual 23.9, POC Total CO2 25, Base Excess -1, O2 Saturation 93 L, O2 % 50, ABG pCO2 39.8, ABG pO2 67 L, Joon Test POS, O2 Delivery Device Vent Mask, Blood Gas Notified Whom ED MD, Blood Gas Notified Time 1449 10/25/18 06:43: WBC 8.4, RBC 4.00 L, Hgb 11.7 L, Hct 35.5 L, MCV 88.8, MCH 29.3, MCHC 33.0, RDW 15.9 H, RDW Differential 51.5 H, Plt Count 288, MPV 9.8, Immature Gran % (Auto) 0.200, Neut % (Auto) 89.0 H, Lymph % (Auto) 5.2 L, [place] % (Auto) 4.8, Eos % (Auto) 0.0, Baso % (Auto) 0.8, Absolute Neuts (auto) 7.5, Absolute Lymphs (auto) 0.44 L, Total Counted Pending Current Medications Acetaminophen (Tylenol) 650 mg PO Q6H PRN PRN PRN Reason: Mild Pain (1-3)/Temp > 100.7 F Albuterol Sulfate (Ventolin Aerosols) 2.5 mg INHALATION Q2H PRN PRN PRN Reason: DYSPNEA Albuterol/Ipratropium (Duoneb) 3 ml INHALATION Q4H.RT RAUL Last Admin: 10/25/18 07:25 Dose: 3 ml Atorvastatin Calcium (Lipitor) 20 mg PO QHS RAUL Last Admin: 10/24/18 21:20 Dose: 20 mg Azithromycin (Zithromax) 500 mg PO Q24 [facility] Enoxaparin Sodium (Lovenox) 40 mg SC DAILY@1000 [facility] Furosemide (Lasix) 40 mg PO DAILY [facility] Gabapentin (Neurontin) 300 mg PO BIDCM [facility] Last Admin: 10/24/18 17:30 Dose: 300 mg Methylprednisolone (Solu-Medrol) 40 mg IV Q8 [facility] Last Admin: 10/25/18 05:43 Dose: 40 mg Pantoprazole Sodium (Protonix) 40 mg PO DAILY [facility] Paroxetine HCl (Paxil) 40 mg PO DAILY [facility] Pramipexole Dihydrochloride (Mirapex) 0.25 mg PO QHS [facility] Last Admin: 10/24/18 21:20 Dose: 0.25 mg Sodium Chloride () 5 - 15 ml IV UD PRN PRN Reason: SALINE FLUSH Last Admin: 10/24/18 17:30 Dose: 10 ml Medical Necessity - Tobacco Use Smoking Status: Current every day smoker Tobacco Use: Cigarettes Assessment/Plan Patient is a 73-year-old lady with known COPD who presented to the emergency department with progressive shortness of breath with oxygen saturation in the 70. An assessment of acute on chronic hypoxic respiratory failure made admitted to regular nursing floor for further management 1. Acute on chronic hypoxic respiratory failure secondary to mentation of CHF and COPD 2. Acute COPD admitted to regular nursing floor where patient is currently being managed with bronchodilator treatment systemic steroid as well as azithromycin and oxygen titrated to keep saturation greater than 90 3. Acute congestive heart failure probably heart failure with preserved ejection fraction patient on Lasix echo ordered for EF assessment 4. Restless leg syndrome patient is on Pramipexole 5. Depression with anxiety patient is on SSRI 6. Osteoporosis patient is on Fosamax next 7. Tobacco dependence counseled on cessation, offered nicotine patch for tobacco cravings 8. Dyslipidemia-patient is on statin therapy, continued at home dose 9. GERD patient is on PPI 10. DVT prophylaxis SC Lovenox Active Medications Acetaminophen (Tylenol) 650 mg PO Q6H PRN PRN PRN Reason: Mild Pain (1-3)/Temp > 100.7 F Albuterol Sulfate (Ventolin Aerosols) 2.5 mg INHALATION Q2H PRN PRN PRN Reason: DYSPNEA Albuterol/Ipratropium (Duoneb) 3 ml INHALATION Q4H.RT [facility] Last Admin: 10/25/18 07:25 Dose: 3 ml Atorvastatin Calcium (Lipitor) 20 mg PO QHS [facility] Last Admin: 10/24/18 21:20 Dose: 20 mg Azithromycin (Zithromax) 500 mg PO Q24 [facility] Last Admin: 10/25/18 08:01 Dose: 500 mg Enoxaparin Sodium (Lovenox) 40 mg [place] DAILY@1000 [facility] Last Admin: 10/25/18 08:00 Dose: 40 mg Furosemide (Lasix) 40 mg PO DAILY [facility] Last Admin: 10/25/18 08:02 Dose: 40 mg Gabapentin (Neurontin) 300 mg PO BIDCM [facility] Last Admin: 10/25/18 08:02 Dose: 300 mg Methylprednisolone (Solu-Medrol) 40 mg IV Q8 [facility] Last Admin: 10/25/18 05:43 Dose: 40 mg Pantoprazole Sodium (Protonix) 40 mg PO DAILY [facility] Last Admin: 10/25/18 08:01 Dose: 40 mg Paroxetine HCl (Paxil) 40 mg PO DAILY [facility] Last Admin: 10/25/18 08:02 Dose: 40 mg Pramipexole Dihydrochloride (Mirapex) 0.25 mg PO QHS [facility] Last Admin: 10/24/18 21:20 Dose: 0.25 mg Sodium Chloride () 5 - 15 ml IV UD PRN PRN Reason: SALINE FLUSH Last Admin: 10/24/18 17:30 Dose: 10 ml Clinical Impression(s) from Imaging Studies Chest X-Ray 10/24/18 14:23 IMPRESSION: CHF, follow-up recommended to assure complete resolution Electronically Signed: Angel Ramachandran MD at 15:49 EST , Service support , Code Visit Inpatient E&M: 84617 Subs Hosp L3
[2018-10-25] MEDS: Enoxaparin 40 MG/0.4 ML Syringe SC (08:00)
[2018-10-25] MEDS: Azithromycin 250 MG Tablet 500 MG PO (08:01)
[2018-10-25] MEDS: Pantoprazole Sodium 40 MG Tablet PO (08:01)
[2018-10-25] MEDS: Furosemide 40 MG Tablet PO (08:02)
[2018-10-25] MEDS: Gabapentin 300 MG Capsule PO ×2 (08:02→17:08)
--- NOTE | 2018-10-25 10:48 | CM.UR ---
inspector open die completed. Met face to face with patient, introduced myself, and explained my role. Plans to return home. Denies any needs at this time. States anticipating needing a lift chair in the near future. Daughter will stay with her after discharge, if needed. Raudel Lynn RN, [facility].
[2018-10-25 12:32] LABS: BNP,B-Type NATRIURETIC PEPTIDE 48.7 pg/mL (0-100)
[2018-10-25] MEDS: predniSONE 20 MG Tablet PO (17:07)
[2018-10-25] MEDS: Atorvastatin Calcium 20 MG Tablet PO (23:14)
[2018-10-25] MEDS: Pramipexole Di-HCl 0.25 MG Tablet PO (23:14)
[2018-10-26 03:32] VITALS: BP 118/57; PULSE 77; RESP 18; TEMP 36.6; O2SAT 92
[2018-10-26] MEDS: Ipratropium/Albuterol Sulfate 3 ML AMPUL.NEB INHALATION ×2 (07:03→11:16)
[2018-10-26 07:04] VITALS: PULSE 78; RESP 16; O2SAT 93
[2018-10-26 07:13] LABS: Anion Gap 8 (5-15); BUN 26 mg/dL (7-18); BUN/Creat Ratio 39.7 RATIO (10-20); Calcium,Total 8.7 mg/dL (8.5-10.1); Chloride 111 mmol/L (98-107); Creatinine, Serum 0.66 mg/dL (0.55-1.02); EST Glomerular Filtration Rate 94 mL/min (>60); Est Glom Filt Rate - Afr Amer 114 mL/min (>60); Estimated Creatinine Clearance 40.22 ml/min; Glucose 114 mg/dL (74-106); Magnesium 2.4 mg/dL (1.6-2.6); Potassium 3.7 mmol/L (3.5-5.1); Sodium Level 146 mmol/L (136-145)
--- NOTE | 2018-10-26 07:45 | PCM.DC ---
You will use the following diet at home:: No restrictions Allergies/Adverse Reactions: Allergies bupropion HCl [From Wellbutrin] Allergy (Verified 10/24/18 14:23) Anaphylaxis cephalexin monohydrate [From Keflex] Allergy (Verified 10/24/18 14:23) Anaphylaxis levofloxacin Allergy (Verified 10/24/18 14:23) Anaphylaxis Penicillins [PCN] Allergy (Verified 10/24/18 14:23) Anaphylaxis Medications to take at Discharge Esomeprazole Magnesium 40 mg PO DAILY 09/19/16 Furosemide [Lasix] 40 mg PO DAILY 09/19/16 Gabapentin [Neurontin] 300 mg PO BIDCM 09/19/16 Roflumilast [Daliresp] 500 mcg PO DAILY 09/19/16 Ropinirole HCl [Requip] 0.5 mg PO QHS 09/19/16 Umeclidinium [place] Inhaler [Incruse Ellipta Inhaler] 1 puff IH DAILY 09/19/16 Alendronate Sodium [Fosamax] 70 mg PO QWEEK 10/24/18 Atorvastatin Calcium [Lipitor] 20 mg PO QHS 10/24/18 Famotidine 40 mg PO DAILY 10/24/18 Fluticasone/Vilanterol [Breo Ellipta 200-25 Mcg INH] 1 puff INHALATION DAILY 10/24/18 Ipratropium/Albuterol Sulfate [Duoneb] 3 ml INHALATION Q4H.RT 10/24/18 Loratadine 10 mg PO DAILY 10/24/18 Paroxetine HCl [Paxil] 40 mg PO DAILY 10/24/18 Azithromycin [Zithromax] 500 mg PO Q24 #3 tablet 10/26/18 predniSONE tablet 20 mg PO BIDCM #10 tablet 10/26/18 The following prescriptions were given: Azithromycin [Zithromax] 500 mg PO Q24 #3 tablet predniSONE tablet 20 mg PO BIDCM #10 tablet Primary Care Physician: Shayne Winter Chi, MD [Primary Care Provider] - Please follow up with your Primary Care Physician in: in 1-2 weeks Test Results: Test results from this visit will be discussed in further detail at your follow-up appointment, if applicable. Please Follow Up With: Harshal Koenig MD When: in 1-2 weeks Proposed Discharge Date: 10/26/18
[2018-10-26 07:46] VITALS: BP 106/58; PULSE 90; RESP 20; TEMP 36.6; O2SAT 91
--- NOTE | 2018-10-26 07:47 | DS.PCM_ITS ---
Discharge Date and Diagnosis Date of Admission: 10/24/18 Date of Discharge: 10/26/18 - Primary Discharge Diagnosis COPD with acute exacerbation - Secondary Discharge Diagnosis Chronic Problems COPD with acute exacerbation (Chronic) Tobacco abuse (Chronic) RLS (restless legs syndrome) (Chronic) History of chronic respiratory failure (Chronic) HLD (hyperlipidemia) (Chronic) GERD (gastroesophageal reflux disease) (Chronic) COPD (chronic obstructive pulmonary disease) (Chronic) Hospital Course and Treatment Operations: None Summary of Care Provided: Patient is a 73-year-old lady with known COPD who presented to the emergency department with progressive shortness of breath with oxygen saturation in the 70. An assessment of acute on chronic hypoxic respiratory failure made admitte d to regular nursing floor for further management 1. Acute on chronic hypoxic respiratory failure secondary to a combination of CHF and COPD 2. Acute COPD admitted to regular nursing floor where patient is currently being managed with bronchodilator treatment, systemic steroid as well as azithromycin and oxygen titrated to keep saturation greater than 90 3. Chronic diastolic CHF. Acute exacerbation ruled out BNP was only 49 4. Restless leg syndrome patient is on Pramipexole 5. Depression with anxiety patient is on SSRI 6. Osteoporosis patient is on Fosamax next 7. Tobacco dependence counseled on cessation, offered nicotine patch for tobacco cravings 8. Dyslipidemia-patient is on statin therapy, continued at home dose 9. GERD patient is on PPI 10. DVT prophylaxis SC Lovenox Objective: GENERAL: cooperative HEENT: Atraumatic; moist oral mucosa EYES; Anicteric, Normal Conjunctiva NECK; supple, normal thyroid, no distended JVD. RESPIRATORY: Diminished to auscultation bilaterally, CARDIOVASCULAR: Regular S1 S2, no audible murmurs GI: soft, non-tender, normoactive bowel sounds, : No Renal angle tenderness; EXTREMITIES: no clubbing, no cyanosis. MUSCULOSKELETAL: No Joint Tenderness; no muscle waisting NEURO: Awake; no lateralizing signs. SKIN: No Rash PSYCH; Normal affect - Physical Exam Vital Signs Temp Pulse Resp BP Pulse Ox 97.9 F 78 16 118/57 L 93 10/26/18 03:32 10/26/18 07:04 10/26/18 07:04 10/26/18 03:32 10/26/18 07:04 Oxygen Flow Rate (L/min) 2.5 Oxygen Delivery Method Nasal Cannula Weight: 68.084 kg Body Mass Index (BMI) 26.6 Intake and Output for Last 24 Hours 10/24/18 10/25/18 10/26/18 23:59 23:59 23:59 Intake Total 1280 / 1280 920 / 920 Output Total 400 / 400 Balance 880 / 880 920 / 920 Microbiology Past 72 Hours 10/24/18 18:35 Enteric Bacteriology - Final Stool 10/24/18 19:33 Respiratory Panel (PCR) - Final Mucosa - Nose 10/24/18 19:32 Influenza Types A,B Direct FA (RODNEY) - Final Mucosa - Nose Laboratory Tests Past 24 Hrs 10/25/18 10/25/18 10/26/18 06:43 06:43 06:22 Total Counted Not Reportable Sodium 146 H Potassium 3.7 Chloride 111 H Carbon Dioxide 27.0 Anion Gap 8 BUN 26 H Creatinine 0.66 Estim Creat Clear Calc 40.22 Est GFR (MDRD) Af Amer 114 Est GFR (MDRD) Non-Af 94 BUN/Creatinine Ratio 39.7 H Glucose 114 H Calcium 8.7 Magnesium 2.4 B-Natriuretic Peptide 48.7 Discharge Diet: 8 Cup Fluid Restriciton Discharge Activity: Return to Normal Activity Home Medications: Medications to take at Discharge Esomeprazole Magnesium 40 mg PO DAILY 09/19/16 Furosemide [Lasix] 40 mg PO DAILY 09/19/16 Gabapentin [Neurontin] 300 mg PO BIDCM 09/19/16 Roflumilast [Daliresp] 500 mcg PO DAILY 09/19/16 Ropinirole HCl [Requip] 0.5 mg PO QHS 09/19/16 Umeclidinium [place] Inhaler [Incruse Ellipta Inhaler] 1 puff IH DAILY 09/19/16 Alendronate Sodium [Fosamax] 70 mg PO QWEEK 10/24/18 Atorvastatin Calcium [Lipitor] 20 mg PO QHS 10/24/18 Famotidine 40 mg PO DAILY 10/24/18 Fluticasone/Vilanterol [Breo Ellipta 200-25 Mcg INH] 1 puff INHALATION DAILY 10/24/18 Ipratropium/Albuterol Sulfate [Duoneb] 3 ml INHALATION Q4H.RT 10/24/18 Loratadine 10 mg PO DAILY 10/24/18 Paroxetine HCl [Paxil] 40 mg PO DAILY 10/24/18 Azithromycin [Zithromax] 500 mg PO Q24 #3 tablet 10/26/18 predniSONE tablet 20 mg PO BIDCM #10 tablet 10/26/18 Following Prescrptions Were Given to Patient: Azithromycin [Zithromax] 500 mg PO Q24 #3 tablet predniSONE tablet 20 mg PO BIDCM #10 tablet Primary Care Physician: Shayne Winter Chi, MD [Primary Care Provider] - Please follow up with your Primary Care Physician in: in 1-2 weeks Please Follow Up With: Harshal Koenig MD When: in 1-2 weeks Disposition: Home Minutes spent on discharge:: 35 Patient Condition:: Stable Medical Necessity - Tobacco Use Smoking Status: Current every day smoker Tobacco Use: Cigarettes Meaningful Use Info Meaningful Use Diagnoses (Choose all that apply): None applicable Code Visit Inpatient E&M: 92697 Disch Hosp
[2018-10-26] MEDS: Furosemide 40 MG Tablet PO (07:50)
[2018-10-26] MEDS: Azithromycin 250 MG Tablet 500 MG PO (07:50)
[2018-10-26] MEDS: Gabapentin 300 MG Capsule PO (07:51)
[2018-10-26] MEDS: predniSONE 20 MG Tablet PO (07:52)
[2018-10-26] MEDS: Pantoprazole Sodium 40 MG Tablet PO (07:52)
[2018-10-26] MEDS: Enoxaparin 40 MG/0.4 ML Syringe SC (07:53)
[2018-10-26 11:17] VITALS: PULSE 100; RESP 16
[2018-10-27 15:01] LABS: Pathologist Review Reviewed
--- NOTE | 2018-10-27 15:31 | CASEMGMT ---
ELADIO DAWSON Discharge Follow-up Phone Call: ROB: Nick Strata: 3 Call Date: 10/27/18 Discharge Date: 10/26/18 Time of Call: 1325 Duration: 5 min Admitting Diagnosis: Exac of COPD ELADIO DAWSON completed follow-up phone call after recent hospitalization. Patient states that she is doing pretty good. Patient has been wearing her oxygen and taking medications as prescribed. Patient had no questions or concerns regarding discharge instructions. Patient was able to sweet pickle maker prescriptions without any issues. Patient states she has appt with gunstock repairer on Saturday. Patient denied further needs at this time.
== END 2018-10-26 12:28 | disposition home or self-care (01) | DRG 189 ==
LOC: ED 15:59 → MS3 16:42
PROVIDERS: Admitting Provider Internal Medicine; Emergency Provider Emergency Medicine; Family Provider Family Medicine Geriatric Medicine; PCP Family Medicine Geriatric Medicine; Visit Provider Internal Medicine
DX: J96.21 Acute and chronic respiratory failure with hypoxia (principal); J44.1 Chronic obstructive pulmonary disease with (acute) exacerbation; I50.32 Chronic diastolic (congestive) heart failure; Z99.81 Dependence on supplemental oxygen; K21.9 Gastro-esophageal reflux disease without esophagitis; E78.5 Hyperlipidemia, unspecified; G25.81 Restless legs syndrome; M81.0 Age-related osteoporosis without current pathological fracture; F32.9 Major depressive disorder, single episode, unspecified; J98.01 Acute bronchospasm; F41.8 Other specified anxiety disorders; Z79.899 Other long term (current) drug therapy; F17.210 Nicotine dependence, cigarettes, uncomplicated
CPT/HCPCS: 36415; 36600; 71046; 80048; 80053; 82803; 83605; 83735; 83880; 85025; 87040; 87506; 87633; 87804; 93005; 94640; 94667; 94668; 99251; 99285; 99406; A4216; G0463

== ENCOUNTER → 2019-02-18 12:00 | Outpatient (CLI) | payer MEDICARE, SELFPAY ==
[2018-10-24 16:42] VITALS: BMI 26.6
[2019-02-18 17:48] LABS: Absolute Lymphocyte Count 2.22 X10^3/ul (0.83-4.51); Absolute Neutrophil Count 5.4 X10^3/uL (2.0-7.7); Basophil# 0.02 X10^3/uL; Basophil% 0.2 % (0-1); Eosinophil# 0.58 X10^3/uL; Eosinophils% 6.3 % (0-5); Hematocrit 40.7 % (37-47); Lymphocyte # 2.22 X10^3/ul (4.0); Lymphocyte % 24.1 % (19-41); Mean Corp Hgb Conc 31.9 g/gl (32-36); Mean Corpuscular Hgb 27.5 pg (27.0-32.0); Mean Corpuscular Volume 86.2 fL (81-99); Mean Platelet Vol. 9.9 fl (6.2-12.0); Monocyte# 0.93 X10^3/uL; Monocyte% 10.1 % (0-10); Neutrophil # 5.44 X10^3/uL (2.7-7.7); Neutrophil % 59.2 % (47-70); Platelet Count 382 K/mm3 (150-450); RBC Distribution Width CV 15.9 % (11.6-14.6); RBC Distribution Width SD 49.1 fl (35.1-43.9); Red Blood Count 4.72 M/mm3 (4.2-5.4); White Blood Count 9.2 K/mm3 (4.4-11.0)
[2019-02-18 17:56] LABS: Vitamin D,25 Hydroxy 27.1 ng/mL (29.95-100.01)
[2019-02-18 17:58] LABS: POSITIVE COUNT NO; POSITIVE DIFFERENTIAL NO; POSITIVE MORPHOLOGY NO
[2019-02-18 18:00] LABS: ALB/GLOB Ratio 0.9 RATIO (0.9-2.4); AST(SGOT) 23 U/L (15-37); Alanine Aminotransfer ALT/SGPT 26 U/L (13-56); Albumin, Serum 3.3 g/dL (3.2-5.0); Alkaline Phosphatase 76 U/L (45-117); Anion Gap 10 (5-15); BUN 13 mg/dL (7-18); BUN/Creat Ratio 18.1 RATIO (10-20); Chloride 103 mmol/L (98-107); Creatinine, Serum 0.72 mg/dL (0.55-1.02); EST Glomerular Filtration Rate 85 mL/min (>60); Est Glom Filt Rate - Afr Amer 103 mL/min (>60); Globulin 3.8 g/dL (2.2-4.2); Glucose 86 mg/dL (74-106); Potassium 3.9 mmol/L (3.5-5.1); Protein, Total 7.1 g/dL (6.4-8.2); Sodium Level 141 mmol/L (136-145)
== END ==
PROVIDERS: Family Provider Family Medicine Geriatric Medicine; PCP Family Medicine Geriatric Medicine; Visit Provider Family Medicine Geriatric Medicine
DX: E55.9 Vitamin D deficiency, unspecified (principal); R53.83 Other fatigue
CPT/HCPCS: 36415; 80053; 82306; 84443; 85025

== ENCOUNTER → 2019-08-19 13:19 | Outpatient (CLI) | payer MEDICARE, SELFPAY ==
[2018-10-24 16:42] VITALS: BMI 26.6
[2019-08-19 15:14] LABS: Absolute Lymphocyte Count 1.65 X10^3/uL (0.83-4.51); Absolute Neutrophil Count 4.8 X10^3/uL (2.0-7.7); Basophil# 0.04 X10^3/uL; Basophil% 0.5 % (0-1); Eosinophil# 0.77 X10^3/uL; Eosinophils% 9.6 % (0-5); Hematocrit 41.1 % (37-47); Hemoglobin 13.3 g/dL (12.0-15.0); Lymphocyte # 1.65 X10^3/ul (4.0); Lymphocyte % 20.6 % (19-41); Mean Corp Hgb Conc 32.4 g/dL (32-36); Mean Corpuscular Hgb 27.5 pg (27.0-32.0); Mean Corpuscular Volume 85.1 fL (81-99); Mean Platelet Vol. 10.5 fl (6.2-12.0); Monocyte# 0.77 X10^3/uL; Monocyte% 9.6 % (0-10); NRBC Flagged by Analyzer 0 % (0-5); Neutrophil # 4.77 X10^3/uL (2.7-7.7); Neutrophil % 59.6 % (47-70); Platelet Count 283 K/mm3 (150-450); RBC Distribution Width CV 18.3 % (11.6-14.6); RBC Distribution Width SD 56.8 fl (35.1-43.9); Red Blood Count 4.83 M/mm3 (4.2-5.4)
[2019-08-19 15:31] LABS: AST(SGOT) 16 U/L (15-37); Alanine Aminotransfer ALT/SGPT 17 U/L (13-56); Albumin, Serum 3.4 g/dL (3.2-5.0); Alkaline Phosphatase 81 U/L (45-117); Anion Gap 9 (5-15); BUN 12 mg/dL (7-18); BUN/Creat Ratio 16.6 RATIO (10-20); Calcium,Total 8.6 mg/dL (8.5-10.1); Chloride 106 mmol/L (98-107); Creatinine, Serum 0.72 mg/dL (0.55-1.02); EST Glomerular Filtration Rate 84 mL/min (>60); Est Glom Filt Rate - Afr Amer 101 mL/min (>60); Globulin 3.4 g/dL (2.2-4.2); Glucose 77 mg/dL (74-106); Potassium 3.3 mmol/L (3.5-5.1); Protein, Total 6.8 g/dL (6.4-8.2); Sodium Level 142 mmol/L (136-145); Thyroid Stim Hormone (TSH) 0.66 uIU/mL (0.358-3.74); Vitamin D,25 Hydroxy 22.8 ng/mL (29.95-100.01)
== END ==
PROVIDERS: Family Provider Family Medicine Geriatric Medicine; PCP Family Medicine Geriatric Medicine; Visit Provider Family Medicine Geriatric Medicine
DX: R53.83 Other fatigue (principal); E55.9 Vitamin D deficiency, unspecified
CPT/HCPCS: 36415; 80053; 82306; 84443; 85025

== ENCOUNTER 2019-08-26 16:37 | Emergency (ER) | payer MEDICARE, SELFPAY ==
[2018-10-24 16:42] VITALS: BMI 26.6
[2019-08-26 16:39] VITALS: BP 92/54; PULSE 91; RESP 16; TEMP 36.2; O2SAT 84; BMI 26.5
[2019-08-26 16:58] VITALS: O2SAT 91
--- NOTE | 2019-08-26 17:09 | ED.DCSUM_ITS ---
History of Present Illness Chief Complaint: Lower Extremity Injury Informant: Patient Onset: Days - 2 Context: Gradual Onset Timing: Continuous Quality of Pain: Aching Location: L ankle, top of left midfoot Current Severity: Moderate Maximum Severity: Severe Worsened by: weight bearing, bending ankle Relieved by: rest Associated Symptoms: Loss of Funtion - needing to use walker to get around, which is not typical. Negative for: Parasthesia, Weakness Narrative: Gradual onset of redness and pain in the left ankle and proximal dorsal foot. Just barely touching the area has been very tender. Moving the foot/ankle has been very painful. She is using a walker to get around. No fevers or systemic symptoms. No injury to this area. No history of gout or pseudogout that she never knew of. Started 2 days ago and progressed quickly. Denies any wounds that she knows of in this area. No foreign bodies. No neurologic symptoms into the toes. No pain into the toes. She states she had a flu shot 1 or 2 weeks ago, and within 2 or 3 days, her shoulder was pretty sore and going up into her left neck/trapezius area. Hurts more to turn her head ipsilaterally to the left, not as much to turn to the other side. She is able to do so but with pain. She denies any neurologic symptoms in her left upper extremity. She does not remember or know if she had a rash at the injection location but it was injected into her left shoulder. The left shoulder is feeling much better but her left neck is still sore. She denies any headache, loss of consciousness, other focal neurologic symptoms. - Past Medical History (1) COPD (chronic obstructive pulmonary disease) Status: Chronic (2) GERD (gastroesophageal reflux disease) Status: Chronic (3) HLD (hyperlipidemia) Status: Chronic (4) RLS (restless legs syndrome) Status: Chronic Past Medical History - Allergies and Home Meds Allergies/Adverse Reactions: Allergies bupropion HCl [From Wellbutrin] Allergy (Verified 08/26/19 16:38) Anaphylaxis cephalexin monohydrate [From Keflex] Allergy (Verified 08/26/19 16:38) Anaphylaxis levofloxacin Allergy (Verified 08/26/19 16:38) Anaphylaxis Penicillins [PCN] Allergy (Verified 08/26/19 16:38) Anaphylaxis Primary Care Physician: Shayne Winter Chi, MD [Primary Care Provider] - Surgical History: appendectomy, cholecystectomy, hysterectomy, tonsillectomy, - - Cataract surgery. Lives: Alone Smoking Status: Current every day smoker - Family History Maternal Family History: Reports: - - Mother of history w/ lung clot. Paternal Family History: Reports: COPD - Father w/ COPD, tobacco user., - - Colon cancer. Review of Systems General: Denies: Chills, Fever, Sweats Eyes: Denies: Visual changes - bilaterally, Diplopia ENT: Denies: Rhinorrhea, Sore throat Cardiovascular: Denies: Chest pain, Palpitations Respiratory: Denies: Dyspnea, Cough, Dyspnea on exertion Gastrointestinal: Denies: Abdominal pain, Nausea, Vomiting, Diarrhea, Melena, Hematochezia Genitourinary: Denies: Dysuria, Hematuria, Frequency Musculoskeletal: Reports: Neck pain, Swelling - focal left ankle/midfoot, Extremity Pain. Denies: Back pain Skin: Reports: Rash - redness left ankle/foot. Denies: Wounds Neurological: Denies: Headache, Weakness, Numbness Physical Exam Vital Signs/Narrative: Vital Signs Temp Pulse Resp BP Pulse Ox 08/26/19 16:58 91 08/26/19 16:39 97.1 F L 91 16 92/54 L 84 Inital Vital Signs reviewed: Yes - Extremity Exam Left Ankle: Limited ROM - significant pain w/ passive and active ROM; able to perform short-arc ROM well. Erythema medially at the distal aspect of the medial malleolus, and erythema dorsal lateral midfoot, just past the ankle. The lateral malleolus and medial malleolus bony prominences are nontender. I do not appreciate a significant joint effusion at the ankle. There is no pedal edema. There is no abnormality or erythema in the forefoot. General: Well nourished, Well developed Head: Normocephalic, Atraumatic Eyes: Perrl, EOMI ENT: No Trauma, Moist Mucous Membranes Neck: Nontender, Full ROM - With pain especially turning to the left, Paraspinal Tenderness - Left paraspinal area, proximal sternocleidomastoid without the mastoid process being involved or abnormal-appearing. Negative for: Spinal Tenderness Back: Nontender Skin: No Trauma, Rash - Erythema left foot/ankle. See above. No wounds or nidus for infection that is obvious on exam. Neurological: Alert, Oriented x3, Cranial nerves II-XII grossly intact, Normal Strength, Normal Sensation Psychological: Normal affect, Normal Mood Diagnostic/Tx/Re-eval Impressions Ankle X-Ray 08/26/19 17:20 08/26/19 17:20 Ankle min 3 Views [RAD] Stat Laboratory Results 08/26/19 08/26/19 08/26/19 17:50 17:50 17:55 WBC 11.4 H RBC 4.77 Hgb 13.1 Hct 41.0 MCV 86.0 MCH 27.5 MCHC 32.0 RDW Std Deviation 56.9 H RDW Coeff of Jacinto 18.3 H Plt Count 207 MPV 9.6 Immature Gran % (Auto) 0.400 Neut % (Auto) 71.7 H Lymph % (Auto) 13.5 L [place]ola % (Auto) 11.6 H Eos % (Auto) 2.4 Baso % (Auto) 0.4 Absolute Neuts (auto) 8.2 H Absolute Lymphs (auto) 1.54 Nucleated RBC % 0 Sodium 139 Potassium 4.3 Chloride 105 Carbon Dioxide 29.0 Anion Gap 5 BUN 11 Creatinine 0.66 Estim Creat Clear Calc 41.45 Est GFR (MDRD) Af Amer 113 Est GFR (MDRD) Non-Af 93 BUN/Creatinine Ratio 16.7 Glucose 95 Uric Acid 4.2 Calcium 8.7 C-React Prot Ext Range 175.00 H Fluid Source Cancelled Fluid Color Cancelled Fluid Appearance Cancelled Fluid WBC Cancelled Fluid RBC Cancelled Fluid Tot Cell Count Cancelled Fld Polynuclear WBCs # Cancelled Fld Polynuclear WBCs % Cancelled Fluid Mononuclear WBCs Cancelled Fld Mononuclear WBCs % Cancelled Fluid Neutrophils Cancelled Fluid Lymphocytes Cancelled Fluid Monocytes Cancelled Fluid Plasma Cells Cancelled Fluid Macrophages Cancelled Fld Mesothelial Cells Cancelled Fluid Other Cells Cancelled Fluid Crystals Cancelled Fluid Crystal Source Cancelled Fl Crystal Path Review Cancelled Fl Pathologist Comment Cancelled Fluid Comment 2 Cancelled - Medical Decision Making Work-up is nonspecific. She has a mild leukocytosis, high CRP, negative ESR, and a uric acid that is within normal range. None of this rules out nor confirms either infection nor gout. However, she is significantly improved after a single dose of colchicine 0.6 mg and no other medications. She is moving her ankle much better with little discomfort. This is more consistent with gout than infection. Therefore I think since she has no obvious reason to have infection here, that treating empirically with prednisone is reasonable. Only a very small of joint fluid was able to be obtained, enough for a culture but cell count and crystals were not able to be studied. We discussed reasons to return and discontinue the prednisone, especially if the redness starts to spread and worsen. She was advised that she may safely take 1 or 2 doses of ibuprofen at home but not to continue with to a significant degree. She needs to follow-up with her doctor after the flareup is resolved, or she may return to the ER which we discussed reasons for doing. She and her son are comfortable with this plan. Procedures Procedure(s): Left ankle arthrocentesis. After isopropanol prep and signing consent, 1 cc of plain 1% lidocaine was placed at the aspiration site to help with the pain of the 18-gauge needle used for aspiration. This was placed, at the joint line just medial to the tibialis anterior tendon from an anterior- medial approach, the joint space was found and a scant amount of viscous, straw- colored joint fluid was aspirated. There was a slight amount of pain but otherwise patient tolerated well and there were no complications. Bandage was placed. ED Disposition - Plan for ED Patient: Disposition: Home or Assisted Living Diagnosis: Crystal-induced arthritis and synovitis Instructions: What Is Gout?, Treating Gout Attacks, Gout Diet Prescriptions: Prednisone [Deltasone] 40 mg PO DAILY #10 tab Transmission Status: Pending to [facility] Referrals: Shayne Winter Chi, MD [Primary Care Provider] - 3-5 Days if not improving (or after flare-up is gone (pain and redness)) Additional Instructions: If your ankle/foot are hurting, make sure you are her walker to prevent falls.
--- NOTE | 2019-08-26 17:20 | RAD_ITS ---
STUDY: X-RAY - LEFT ANKLE REASON FOR EXAM: Female, 74 years old. Pain and swelling TECHNIQUE: 3 view(s) of the ankle. COMPARISON: None. FINDINGS: No acute fracture, dislocation or osseous destruction. No significant joint space narrowing. No significant productive changes. No significant soft tissue swelling. IMPRESSION: No acute fracture or dislocation left ankle. Electronically Signed: José Miguel Boyd, at 18:04 EST Tel , Service support , RAD/Ankle min 3 Views
[2019-08-26 18:04] LABS: Absolute Lymphocyte Count 1.54 X10^3/uL (0.83-4.51); Absolute Neutrophil Count 8.2 X10^3/uL (2.0-7.7); Basophil# 0.05 X10^3/uL; Basophil% 0.4 % (0-1); Eosinophil# 0.27 X10^3/uL; Eosinophils% 2.4 % (0-5); Hemoglobin 13.1 g/dL (12.0-15.0); Lymphocyte # 1.54 X10^3/ul (4.0); Lymphocyte % 13.5 % (19-41); Mean Corpuscular Hgb 27.5 pg (27.0-32.0); Mean Platelet Vol. 9.6 fl (6.2-12.0); Monocyte# 1.33 X10^3/uL; Monocyte% 11.6 % (0-10); NRBC Flagged by Analyzer 0 % (0-5); Neutrophil # 8.19 X10^3/uL (2.7-7.7); Neutrophil % 71.7 % (47-70); Platelet Count 207 K/mm3 (150-450); RBC Distribution Width CV 18.3 % (11.6-14.6); RBC Distribution Width SD 56.9 fl (35.1-43.9); Red Blood Count 4.77 M/mm3 (4.2-5.4); White Blood Count 11.4 K/mm3 (4.4-11.0)
[2019-08-26 18:23] LABS: Anion Gap 5 (5-15); BUN 11 mg/dL (7-18); BUN/Creat Ratio 16.7 RATIO (10-20); Calcium,Total 8.7 mg/dL (8.5-10.1); Chloride 105 mmol/L (98-107); Creatinine, Serum 0.66 mg/dL (0.55-1.02); EST Glomerular Filtration Rate 93 mL/min (>60); Est Glom Filt Rate - Afr Amer 113 mL/min (>60); Estimated Creatinine Clearance 41.45 ml/min; Glucose 95 mg/dL (74-106); Potassium 4.3 mmol/L (3.5-5.1); Sodium Level 139 mmol/L (136-145); Uric Acid 4.2 mg/dL (2.6-6.0)
[2019-08-26 18:46] LABS: Erythrocyte Sedimentation Rate 44 mm/hr (0-30)
[2019-08-26] MEDS: predniSONE 20 MG Tablet 40 MG PO (18:56)
== END 2019-08-26 19:14 | disposition home or self-care (01) ==
PROVIDERS: Emergency Provider Emergency Medicine; Family Provider Family Medicine Geriatric Medicine; PCP Family Medicine Geriatric Medicine
DX: M11.9 Crystal arthropathy, unspecified (principal); M65.9 Synovitis and tenosynovitis, unspecified; E78.5 Hyperlipidemia, unspecified; G25.81 Restless legs syndrome; J44.9 Chronic obstructive pulmonary disease, unspecified; K21.9 Gastro-esophageal reflux disease without esophagitis; F17.200 Nicotine dependence, unspecified, uncomplicated; Z88.0 Allergy status to penicillin; Z88.1 Allergy status to other antibiotic agents; Z90.49 Acquired absence of other specified parts of digestive tract; Z90.710 Acquired absence of both cervix and uterus
CPT/HCPCS: 73610; 80048; 84550; 85025; 85652; 86140; 87070; 87075; 87205; 99283

== ENCOUNTER → 2019-09-17 15:47 | Outpatient (CLI) | payer MEDICARE, SELFPAY ==
[2019-08-26 16:39] VITALS: BMI 26.5
[2019-09-17 17:51] LABS: Anion Gap 6 (5-15); BUN 14 mg/dL (7-18); BUN/Creat Ratio 21.7 RATIO (10-20); Calcium,Total 8.7 mg/dL (8.5-10.1); Chloride 107 mmol/L (98-107); Creatinine, Serum 0.64 mg/dL (0.55-1.02); EST Glomerular Filtration Rate 96 mL/min (>60); Est Glom Filt Rate - Afr Amer 116 mL/min (>60); Glucose 87 mg/dL (74-106); Potassium 4.3 mmol/L (3.5-5.1); Sodium Level 141 mmol/L (136-145)
== END ==
PROVIDERS: Family Provider Family Medicine Geriatric Medicine; PCP Family Medicine Geriatric Medicine; Visit Provider Family Medicine Geriatric Medicine
DX: E87.6 Hypokalemia (principal)
CPT/HCPCS: 36415; 80048

== ENCOUNTER → 2020-02-29 14:24 | Outpatient (CLI) | payer MEDICARE, MEDICAID, SELFPAY ==
--- NOTE | 2020-02-29 16:15 | RAD_ITS ---
STUDY: X-RAY - LEFT HAND REASON FOR EXAM: Female, 74 years old. Hand pain TECHNIQUE: 3 view(s) of the hand. COMPARISON: None. FINDINGS: There is no evidence of fracture or dislocation. There are mild degenerative changes in the interphalangeal joints. There are no radiodense foreign bodies. RAD/Hand Min 3 Views IMPRESSION: No fracture or dislocation in the left hand. Mild degenerative change. Electronically Signed: Geovanny Lynn, at 16:14 EDT Tel , Service support ,
--- NOTE | 2020-02-29 16:18 | RAD_ITS ---
STUDY: X-RAY - CERVICAL SPINE REASON FOR EXAM: Female, 74 years old. NECK PAIN TECHNIQUE: 3 view(s) of the cervical spine were obtained. COMPARISON: None FINDINGS: There are degenerative changes of the anterior atlantoaxial articulation. Normal odontoid process. There is straightening of the normal cervical lordosis. There is multi-level endplate spondylosis. There is multi-level degenerative disc disease with multilevel disc space narrowing. Normal visualized intervertebral neuroforamina. The soft tissue structures are unremarkable. RAD/Cerv Spine 2 or 3 Views IMPRESSION: Spondylosis and disc space narrowing at the C4-C5, C5-C6 and C6-C7 levels. Electronically Signed: Mao Rodgers, at 10:25 EDT , Service support ,
[2020-02-29 17:11] LABS: Absolute Lymphocyte Count 2.27 X10^3/uL (0.83-4.51); Absolute Neutrophil Count 6.6 X10^3/uL (2.0-7.7); Basophil# 0.04 X10^3/uL; Basophil% 0.4 % (0-1); Eosinophils% 5.7 % (0-5); Hematocrit 40.9 % (37-47); Hemoglobin 13.4 g/dL (12.0-15.0); Lymphocyte # 2.27 X10^3/ul (4.0); Lymphocyte % 21.6 % (19-41); Mean Corp Hgb Conc 32.8 g/dL (32-36); Mean Corpuscular Hgb 28.4 pg (27.0-32.0); Mean Corpuscular Volume 86.7 fL (81-99); Mean Platelet Vol. 10.3 fl (6.2-12.0); Monocyte# 0.98 X10^3/uL; Monocyte% 9.3 % (0-10); NRBC Flagged by Analyzer 0 % (0-5); Neutrophil # 6.57 X10^3/uL (2.7-7.7); Neutrophil % 62.6 % (47-70); Platelet Count 385 K/mm3 (150-450); RBC Distribution Width CV 16.7 % (11.6-14.6); RBC Distribution Width SD 53.1 fl (35.1-43.9); Red Blood Count 4.72 M/mm3 (4.2-5.4); White Blood Count 10.5 K/mm3 (4.4-11.0)
[2020-02-29 17:34] LABS: ALB/GLOB Ratio 0.8 RATIO (0.9-2.4); AST(SGOT) 12 U/L (15-37); Alanine Aminotransfer ALT/SGPT 15 U/L (13-56); Albumin, Serum 3.2 g/dL (3.2-5.0); Alkaline Phosphatase 81 U/L (45-117); Anion Gap 8 (5-15); BUN 13 mg/dL (7-18); BUN/Creat Ratio 19.3 RATIO (10-20); Calcium,Total 8.8 mg/dL (8.5-10.1); Chloride 102 mmol/L (98-107); Creatinine, Serum 0.67 mg/dL (0.55-1.02); EST Glomerular Filtration Rate 91 mL/min (>60); Est Glom Filt Rate - Afr Amer 110 mL/min (>60); Globulin 4.1 g/dL (2.2-4.2); Glucose 92 mg/dL (74-106); Potassium 4.4 mmol/L (3.5-5.1); Protein, Total 7.3 g/dL (6.4-8.2); Sodium Level 136 mmol/L (136-145); Thyroid Stim Hormone (TSH) 1.07 uIU/mL (0.358-3.74)
[2020-03-01 09:15] LABS: Vitamin D,25 Hydroxy 31.8 ng/mL
== END ==
PROVIDERS: PCP Family Medicine Geriatric Medicine; Visit Provider Family Medicine Geriatric Medicine
DX: E55.9 Vitamin D deficiency, unspecified (principal); R53.83 Other fatigue; M54.2 Cervicalgia
CPT/HCPCS: 36415; 72040; 73130; 80053; 82306; 84443; 85025

== ENCOUNTER → 2020-05-31 15:44 | Outpatient (CLI) | payer MEDICARE, MEDICAID, SELFPAY ==
--- NOTE | 2020-05-31 15:55 | RAD_ITS ---
STUDY: X-RAY - LUMBAR SPINE REASON FOR EXAM: Female, 75 years old. Back pain TECHNIQUE: 3 view(s) of the lumbar spine were obtained. COMPARISON: None FINDINGS: There is no evidence of fracture or dislocation in the lumbar spine. The vertebral body heights are well-maintained. There are moderate multilevel degenerative changes which are most pronounced at L5/S1. RAD/Lumbar Spine 2 or 3 Views IMPRESSION: No fracture or dislocation in the lumbar spine. Moderate degenerative changes which are most pronounced at L5/S1. Electronically Signed: Geovanny Lynn, at 18:08 EDT Tel , Service support ,
== END ==
PROVIDERS: PCP Family Medicine Geriatric Medicine; Referring Provider Family Medicine Geriatric Medicine; Visit Provider Family Medicine Geriatric Medicine
DX: M54.16 Radiculopathy, lumbar region (principal)
CPT/HCPCS: 72100

== ENCOUNTER → 2020-11-17 14:07 | Outpatient (CLI) | payer MEDICARE, SELFPAY ==
[2020-11-17 18:06] LABS: Absolute Lymphocyte Count 2.36 X10^3/uL (0.83-4.51); Absolute Neutrophil Count 4.3 X10^3/uL (2.0-7.7); Basophil# 0.05 X10^3/uL; Basophil% 0.6 % (0-1); Eosinophil# 1.04 X10^3/uL; Eosinophils% 12.2 % (0-5); Hematocrit 41.6 % (37-47); Hemoglobin 13.5 g/dL (12.0-15.0); Lymphocyte # 2.36 X10^3/ul (4.0); Lymphocyte % 27.7 % (19-41); Mean Corp Hgb Conc 32.5 g/dL (32-36); Mean Corpuscular Hgb 28.2 pg (27.0-32.0); Mean Platelet Vol. 9.8 fl (6.2-12.0); Monocyte# 0.75 X10^3/uL; Monocyte% 8.8 % (0-10); NRBC Flagged by Analyzer 0 % (0-5); Neutrophil % 50.5 % (47-70); Platelet Count 336 K/mm3 (150-450); RBC Distribution Width CV 15.9 % (11.6-14.6); RBC Distribution Width SD 49.8 fl (35.1-43.9); Red Blood Count 4.78 M/mm3 (4.2-5.4); White Blood Count 8.5 K/mm3 (4.4-11.0)
[2020-11-17 18:17] LABS: Vitamin D,25 Hydroxy 24.4 ng/mL
[2020-11-17 18:33] LABS: ALB/GLOB Ratio 1.1 RATIO (0.9-2.4); AST(SGOT) 15 U/L (15-37); Alanine Aminotransfer ALT/SGPT 20 U/L (13-56); Albumin, Serum 3.7 g/dL (3.2-5.0); Alkaline Phosphatase 57 U/L (45-117); Anion Gap 7 (5-15); BUN 8 mg/dL (7-18); BUN/Creat Ratio 11.3 RATIO (10-20); Calcium,Total 8.9 mg/dL (8.5-10.1); Chloride 97 mmol/L (98-107); Creatinine, Serum 0.71 mg/dL (0.55-1.02); EST Glomerular Filtration Rate 85 mL/min (>60); Est Glom Filt Rate - Afr Amer 103 mL/min (>60); Globulin 3.4 g/dL (2.2-4.2); Glucose 92 mg/dL (74-106); Potassium 4.1 mmol/L (3.5-5.1); Protein, Total 7.1 g/dL (6.4-8.2); Sodium Level 132 mmol/L (136-145); Thyroid Stim Hormone (TSH) 1.03 uIU/mL (0.358-3.74)
== END ==
PROVIDERS: PCP Family Medicine Geriatric Medicine; Visit Provider Family Medicine Geriatric Medicine
DX: R53.83 Other fatigue (principal); E55.9 Vitamin D deficiency, unspecified
CPT/HCPCS: 36415; 80053; 82306; 84443; 85025

== ENCOUNTER 2020-12-28 17:12 | Inpatient (IN) | payer MEDICARE, MEDICAID, SELFPAY ==
[2020-12-28 17:13] VITALS: BP 125/73; PULSE 113; RESP 18; TEMP 36.8; O2SAT 89; BMI 25.7
[2020-12-28 17:42] VITALS: BP 100/73; PULSE 104; RESP 23; O2SAT 96
--- NOTE | 2020-12-28 17:44 | EKG12_ITS ---
Test Reason : SOB Blood Pressure : / mmHG Vent. Rate : 094 BPM Atrial Rate : 094 BPM P-R Int : 130 ms QRS Dur : 082 ms QT Int : 356 ms P-R-T Axes : 078 -79 072 degrees QTc Int : 445 ms Normal sinus rhythm Low voltage QRS Left anterior fascicular block Abnormal ECG Confirmed by CHANELL RAMÍREZ, CHASE ([id number]), scientific publications editor DANIELA JEFFRYE ([id number]) on 12/30/2020 2:42:25 PM Referred By: Confirmed By:ERIKA LUA MD
--- NOTE | 2020-12-28 17:44 | CT_ITS ---
STUDY: CT ABDOMEN AND PELVIS WITH CONTRAST REASON FOR EXAM: Female, 75 years old. LLQ pain RADIATION DOSAGE (If Supplied By Facility): CTDIvol = ( 9.175 ) mGy, DLP = ( 532.45 ) mGycm TECHNIQUE: Transaxial images were obtained from the dome of the diaphragm to the symphysis pubis without oral contrast. IV 100mL Isovue-300 was administered. Sagittal and coronal images were reconstructed. Individualized dose optimization techniques were used for this CT. COMPARISON: 08/26/2012 FINDINGS: The visualized lung bases are unremarkable. The visualized portions of the heart are within normal limits. Normal liver. Nonvisualization of the gallbladder. No significant dilatation of the extrahepatic biliary system. Normal spleen. Normal pancreas. Normal bilateral adrenal glands. Normal right kidney. Normal left kidney. Hiatal hernia. Normal small intestine. Mild wall thickening of the sigmoid colon. Adjacent mesentery stranding suspicious for inflammation. Mild presacral mesenteric thickening/edema. The appendix is not visualized. Calcified abdominal aorta. Normal inferior vena cava. Normal retroperitoneum. Normal urinary bladder. There is a 4.6 cm right adnexal cyst. There is a fat-containing ventral hernia of the right anterior abdominal wall. Normal osseous structures. CT/Abdomen/Pelvis W IV Cont ONLY IMPRESSION: Hiatal hernia. Mild wall thickening of the sigmoid colon with adjacent mesentery stranding suspicious for inflammation. Mild presacral mesenteric thickening/edema. Right adnexal cyst. Right fat containing ventral hernia. Electronically Signed: Mt Enriquez DO at 19:20 EDT Tel [phone], Service support ,
[2020-12-28] MEDS: 0.9% Normal Saline 1,000 ML 1000 ML IV (17:59)
[2020-12-28 18:06] LABS: Red Blood Cells-Urine 0 SEEN /hpf (0-5); White Blood Cells 0 SEEN /hpf (0-5)
[2020-12-28 18:11] LABS: Color, Urine Yellow (Yellow); Glucose, Dipstick Normal (Normal); Leukocyte Esterase-Dipstick 25 /ul (Negative); Nitrite-Dipstick Negative (Negative); Occult Blood-Urine 25 /ul (Negative); Protein-Dipstick 30 mg/dl (Negative); Specific Gravity, Urine 1.025 (1.002-1.030); Urine Bilirubin Dipstick Negative (Negative); Urine Clarity Clear (Clear); Urine Urobilinogen 1 mg/dl (Normal)
--- NOTE | 2020-12-28 18:11 | ED.DCSUM_ITS ---
- ER Visit Summary Date of Service: 12/28/20 Chief Complaint: Not feeling well History of Present Illness: The patient is a 75 F presenting stating that she has not been feeling well since Saturday. She complains of abdominal pain and diarrhea. She has mild shortness of breath and cough. She has diffuse my algias. She denies fever. She denies blood in her stool. She states she has been having significant amount of diarrhea with no vomiting. She received her first Covid vaccine 1 week ago. She denies dizziness or syncope. Denies chest pain. Denies other complaints. Physical Examination: Vitals are stable. Patient is afebrile. Alert no acute distress. HEENT exam is unremarkable. Neck is supple. Lungs are clear and equal bilaterally. Heart is regular rate and rhythm. Abdomen is soft left lower quadrant tenderness Extremities are unremarkable. Skin is warm and dry. No focal neurologic deficit. Remainder of exam is unremarkable. Emergency Department Course and Treatment: EKG is sinus rhythm rate of 94 with no acute ischemic changes. Patient was given IV fluids. CBC shows white count 15. Chemistries unremarkable. Urinalysis shows ketones. Troponin is negative. Covid negative. Chest x-ray read by myself and radiology shows no acute radiographic abnormalities. CT abdomen pelvis shows Hiatal hernia. Mild wall thickening of the sigmoid colon with adjacent mesentery stranding suspicious for inflammation. Mild presacral mesenteric thickening/edema. Right adnexal cyst. Right fat containing ventral hernia. Patient was given Flagyl IV. Stool studies are ordered. Discussed with hospitalist for admission. Disposition: Admission Impression: Abdominal pain, diarrhea This note was generated with [employer] dictation software. It may contain incorrect words, spelling, and punctuation that were not noted in review of the chart prior to signing ED Disposition - Plan for ED Patient: Referrals: Shayne Winter Chi, MD [Primary Care Provider] -
--- NOTE | 2020-12-28 18:11 | RAD_ITS ---
INDICATION: cough EXAMINATION/TECHNIQUE: X-RAY - XR Chest 1 View COMPARISON: 09/21/2016. FINDINGS: The lungs are clear. The cardiomediastinal silhouette is unremarkable. No pleural effusion or pneumothorax. No acute osseous abnormalities. RAD/Chest 1 View (Portable) IMPRESSION: No acute radiographic abnormalities. Electronically Signed: Bobby Hoover MD at 18:57 EDT Tel , Service support ,
[2020-12-28 18:19] LABS: Absolute Lymphocyte Count 1.44 X10^3/uL (0.83-4.51); Absolute Neutrophil Count 11.9 X10^3/uL (2.0-7.7); Basophil# 0.03 X10^3/uL; Basophil% 0.2 % (0-1); Eosinophil# 0.21 X10^3/uL; Eosinophils% 1.4 % (0-5); Hematocrit 41.6 % (37-47); Hemoglobin 13.8 g/dL (12.0-15.0); Lymphocyte # 1.44 X10^3/ul (4.0); Lymphocyte % 9.6 % (19-41); Mean Corp Hgb Conc 33.2 g/dL (32-36); Mean Corpuscular Hgb 29.6 pg (27.0-32.0); Mean Corpuscular Volume 89.3 fL (81-99); Mean Platelet Vol. 9.8 fl (6.2-12.0); Monocyte# 1.36 X10^3/uL; Monocyte% 9.1 % (0-10); NRBC Flagged by Analyzer 0 % (0-5); Neutrophil # 11.89 X10^3/uL (2.7-7.7); Neutrophil % 79.2 % (47-70); Platelet Count 301 K/mm3 (150-450); RBC Distribution Width CV 16.6 % (11.6-14.6); RBC Distribution Width SD 53.5 fl (35.1-43.9); Red Blood Count 4.66 M/mm3 (4.2-5.4)
[2020-12-28 18:24] LABS: ALB/GLOB Ratio 0.9 RATIO (0.9-2.4); AST(SGOT) 12 U/L (15-37); Alanine Aminotransfer ALT/SGPT 19 U/L (13-56); Albumin, Serum 3.5 g/dL (3.2-5.0); Alkaline Phosphatase 63 U/L (45-117); Anion Gap 10 (5-15); BUN 10 mg/dL (7-18); BUN/Creat Ratio 17.7 RATIO (10-20); Calcium,Total 8.9 mg/dL (8.5-10.1); Chloride 99 mmol/L (98-107); Creatinine, Serum 0.56 mg/dL (0.55-1.02); EST Glomerular Filtration Rate 111 mL/min (>60); Est Glom Filt Rate - Afr Amer 135 mL/min (>60); Estimated Creatinine Clearance 40.83 ml/min; Glucose 74 mg/dL (74-106); Potassium 3.5 mmol/L (3.5-5.1); Protein, Total 7.5 g/dL (6.4-8.2); Sodium Level 132 mmol/L (136-145)
[2020-12-28 18:27] LABS: Ketone-Dipstick 150 mg/dl (Negative)
[2020-12-28 18:29] LABS: Squamous Epithelial Cells - UA 0-5 SEEN /hpf (5-10)
[2020-12-28 18:30] LABS: Bacteria RARE /hpf (None Seen); Mucous, Urine 1+ /hpf (<or=2+)
[2020-12-28 18:32] VITALS: O2SAT 99
[2020-12-28 20:00] VITALS: BP 125/70; PULSE 98; RESP 20; TEMP 36.8; O2SAT 98
[2020-12-28] MEDS: metroNIDAZOLE 500 MG/100 ML BAG 100 MG IV (20:09)
--- NOTE | 2020-12-28 20:17 | ED.RN ---
jac smail, granddaughter, phone number [phone]
--- NOTE | 2020-12-28 20:23 | HP.PCM_ITS ---
Problem List (1) Diverticulitis Status: Suspected (2) Acute sigmoid colitis Status: Acute (3) Degenerative disc disease, cervical Status: Chronic (4) Tobacco abuse Status: Chronic (5) RLS (restless legs syndrome) Status: Chronic (6) History of chronic respiratory failure Status: Chronic (7) HLD (hyperlipidemia) Status: Chronic (8) GERD (gastroesophageal reflux disease) Status: Chronic (9) COPD (chronic obstructive pulmonary disease) Status: Chronic History of Present Illness Date of Admission: 12/28/20 Chief Complaint: Abdominal pain. The patient is a 75 year old F with past medical history as mentioned above presented to the emergency room because of abdominal pain and not feeling well. Her symptoms started this past Saturday which is 3 days ago with abdominal pain, left lower quadrant abdominal pain, intermittent, described as crampy pain, 6 out of 10 in severity, not radiating, associated with diarrhea of 2-3 times a day, watery stool without blood and without aggravating or relieving factors. She denied fever or chills. She reported chronic cough and shortness of breath due to COPD without new changes to her chronic cough. She received her COVID-19 vaccine 1 week ago. In the emergency department, she was afebrile, tachycardic, blood pressure was stable, pulse ox was 96% on 3 L. Routine blood work was remarkable for leukocytosis, sodium of 132, otherwise normal. LFT was unremarkable. Urinalysis showed no evidence of infection. Chest x-ray showed no acute findings. CT scan abdomen and pelvis revealed mild wall thickening of the sigmoid colon with adjacent mesentery stranding, mild parasacral mesenteric thickening with edema. Patient is being admitted for acute sigmoid colitis with probable acute diverticulitis and sepsis. Past Medical History Past Medical History (Chronic Problems): Chronic Problems (Last Reviewed 08/11/20 @ 14:38 by Paula Vyas) Degenerative disc disease, cervical (Chronic) Tobacco abuse (Chronic) RLS (restless legs syndrome) (Chronic) History of chronic respiratory failure (Chronic) HLD (hyperlipidemia) (Chronic) GERD (gastroesophageal reflux disease) (Chronic) COPD (chronic obstructive pulmonary disease) (Chronic) Medical History: Medical History (Last Reviewed 08/11/20 @ 14:38 by Paula Vyas) Bleeding disorder D69.9 Gout M10.9 High cholesterol E78.00 Hx of gallstones Z87.19 Neuropathy G62.9 Osteoarthritis M19.90 cataracts Allergies bupropion HCl [From Wellbutrin] Allergy (Verified 12/28/20 17:16) Anaphylaxis cephalexin monohydrate [From Keflex] Allergy (Verified 12/28/20 17:16) Anaphylaxis levofloxacin Allergy (Verified 12/28/20 17:16) Anaphylaxis Penicillins [PCN] Allergy (Verified 12/28/20 17:16) Anaphylaxis Home Medications: Ambulatory Orders Medication Instructions Recorded Furosemide [Lasix] 40 mg PO DAILY 09/19/16 Gabapentin [Neurontin] 300 mg PO BIDCM 09/19/16 Roflumilast [Daliresp] 500 mcg PO DAILY 09/19/16 Ropinirole HCl [Requip] 0.5 mg PO QHS 09/19/16 Alendronate Sodium [Fosamax] 70 mg PO WE 10/24/18 Famotidine 40 mg PO DAILY 10/24/18 Fluticasone/Vilanterol [Breo 1 puff INHALATION DAILY 10/24/18 Ellipta 200-25 Mcg INH] Ipratropium/Albuterol Sulfate 3 ml INHALATION Q4H.RT 10/24/18 [Duoneb] Albuterol Aerosols 2.5 - 3 ml INHALATION DAILY 11/23/20 Budesonide 0.5 mg INHALATION BID 11/23/20 Bupropion HCl 150 mg PO BID 11/23/20 Citalopram 20 mg PO QHS 11/23/20 Loratadine 10 mg PO DAILY 11/23/20 Multivitamin 1,000 mg PO DAILY 11/23/20 Potassium 20 meq PO DAILY 11/23/20 Spiriva 18 mcg INHALATION DAILY 11/23/20 Symbicort 160-4.5 Mcg Inhaler 4.5 mcg INHALATION BID 11/23/20 Vitamin B12 2,500 mcg PO DAILY 11/23/20 Vitamin C 1,000 mg PO DAILY 11/23/20 Surgical History: Surgical History (Last Reviewed 08/11/20 @ 14:38 by Paula Vyas) History of cholecystectomy Z90.49 History of hysterectomy Z90.710 Surgical History: appendectomy, cholecystectomy, hysterectomy, tonsillectomy, - - Cataract surgery. Psychiatric History: Depression REFERENCE LIBRARY ASSISTANT History: No pertinent REFERENCE LIBRARY ASSISTANT history Lives: With Family Smoking Status: Current every day smoker Tobacco Use: Cigarettes Alcohol: None Drugs: None - *Family History Maternal Family History: Family History (Last Reviewed 08/11/20 @ 14:38 by Paula Vyas) Father Colon cancer Heart disease History Items: - - Mother of history w/ lung clot. Paternal Family History: Family History (Last Reviewed 08/11/20 @ 14:38 by Paula Vyas) Father Colon cancer Heart disease History Items: COPD - Father w/ COPD, tobacco user., - - Colon cancer. Review of Systems Constitutional: Reports: Malaise. Denies: Anorexia, Chills, Fever, Weakness Eyes: Denies: Blurred vision, Double vision, Drainage, Redness HEENT: Denies: Difficulty Hearing, Ear Pain, Eye Pain, Nasal Congestion, Sore Throat Cardiovascular: Denies: Chest Pain, Chest Pressure, Edema, Heaviness, Palpitations, Syncope Respiratory: Reports: Cough, Shortness of Breath. Denies: Pleuritic Pain, Sputum production, Wheezing Gastrointestinal: Reports: Abdominal Pain, Diarrhea. Denies: Constipation, Nausea, Vomiting Genitourinary: Denies: Dysuria, Frequency, Hematuria Musculoskeletal: Denies: Arm Pain, Back Pain, Foot Pain Skin: Denies: Dryness, Rash Neurological: Denies: Balance problems, Double vision, Change in Speech, Slurred speech, Confusion, Headaches, Incoordination Psychiatric: Reports: Depression. Denies: Anxiety Endocrine: Denies: Change in Body Habitus, Polydipsia, Polyuria VTE Information - Inpt Only VTE Present on Admission: No VTE Mechan Device Prophylaxis: None VTE Pharm Prophylaxis ordered?: Yes Patient Problems: Active and Suspected Problems (Last Reviewed 08/11/20 @ 14:38 by Paula Vyas) Diverticulitis (Suspected) Acute sigmoid colitis (Acute) - Physical Exam Vitals/I&O's: Vital Signs Temp Pulse Resp BP Pulse Ox 98.3 F 98 20 H 125/70 H 98 12/28/20 20:00 12/28/20 20:00 12/28/20 20:00 12/28/20 20:00 12/28/20 20:00 Oxygen Flow Rate (L/min) 3 Oxygen Delivery Method Nasal Cannula Weight: 145 lb Body Mass Index (BMI) 25.7 Intake and Output for Last 24 Hours 12/26/20 12/27/20 12/28/20 23:59 23:59 23:59 Intake Total 1000 / 1000 Balance 1000 / 1000 General: Alert, Oriented x3, Cooperative, No apparent distress HEENT: Atraumatic, PERRLA, EOMI, Normocephalic Oral: Moist Mucosa, No Gingival or Mucosal Lesions/ Ulcerations Neck: Supple, No JVD, Negative Carotid Bruits, Trachea Midline, Thyroid Normal Size and Texture Lungs: No wheeze, No rales, Diminished, Rhonchi, - - Decreased breath sounds bilateral, bilateral rhonchi. Cardiovascular: Regular rate, Regular Rhythm, Normal S1, Normal S2, PMI Normal, Tachycardic Abdomen: Bowel Sounds Present, Soft, Non-Distended, No Hepato-splenomegaly, Tender - Left lower quadrant tenderness, no guarding or rigidity. Extremities: No clubbing, No cyanosis, No edema Skin: No rashes, No breakdown Lymphatic: No Cervical, Supraclavicular, or Inguinal Adenopathy Neurological: Cranial nerves II-XII grossly intact, Motor Exam 5/5 strength throughout Psych/Mental Status: Normal Affect, Appropriate, Alert and oriented to time, place, person, mood and affect Microbiology Past 72 Hours 12/28/20 17:50 Mucosa - Nose SARS-CoV-2 Antigen (Rapid) - Final Laboratory Results 12/28/20 17:35: WBC 15.0 H, RBC 4.66, Hgb 13.8, Hct 41.6, MCV 89.3, MCH 29.6, MCHC 33.2, RDW Std Deviation 53.5 H, RDW Coeff of Jacinto 16.6 H, Plt Count 301, MPV 9.8, Immature Gran % (Auto) 0.500, Neut % (Auto) 79.2 H, Lymph % (Auto) 9.6 L, [place] % (Auto) 9.1, Eos % (Auto) 1.4, Baso % (Auto) 0.2, Absolute Neuts (auto) 11.9 H, Absolute Lymphs (auto) 1.44, Nucleated RBC % 0 12/28/20 17:35: Sodium 132 L, Potassium 3.5, Chloride 99, Carbon Dioxide 23.0, Anion Gap 10, BUN 10, Creatinine 0.56, Estim Creat Clear Calc 40.83, Est GFR (MDRD) Af Amer 135, Est GFR (MDRD) Non-Af 111, BUN/Creatinine Ratio 17.7, Glucose 74, Calcium 8.9, Total Bilirubin 0.80, AST 12 L, ALT 19, Alkaline Phosphatase 63, Troponin I < 0.015, Total Protein 7.5, Albumin 3.5, Globulin 4.0, Albumin/Globulin Ratio 0.9 12/28/20 18:00: Urine Color Yellow, Urine Clarity Clear, Urine pH 6.0, Ur Specific [place] 1.025, Urine Protein 30 H, Urine Glucose (UA) Normal, Urine Ketones 150 H, Urine Occult Blood 25 H, Urine Nitrite Negative, Urine Bilirubin Negative, Urine Urobilinogen 1 H, Ur Leukocyte Esterase 25 H, Urine RBC 0 SEEN, Urine WBC 0 SEEN, Ur Squamous Epith Cells 0-5 SEEN, Urine Bacteria RARE, Urine Mucus 1+ Clinical Impression(s) from Imaging Studies Abdomen/Pelvis CT 12/28/20 17:44 IMPRESSION: Hiatal hernia. Mild wall thickening of the sigmoid colon with adjacent mesentery stranding suspicious for inflammation. Mild presacral mesenteric thickening/edema. Right adnexal cyst. Right fat containing ventral hernia. Electronically Signed: Mt Enriquez DO at 19:20 EDT Tel [phone], Service support , Chest X-Ray 12/28/20 18:11 IMPRESSION: No acute radiographic abnormalities. Electronically Signed: Bobby Hoover MD at 18:57 EDT Tel , Service support , Current Medications Metronidazole (Flagyl) 500 mg in 100 mls @ 100 mls/hr IV X1 ONE Stop: 12/28/20 20:52 Last Admin: 12/28/20 20:09 Dose: 100 mls/hr Documented by: Assessment/Plan All Active Problems (Last Reviewed 08/11/20 @ 14:38 by Paula Vyas) Acute sigmoid colitis (Acute) This is a 75 years old female patient presented to the emergency room because of abdominal pain, found to have findings consistent with acute sigmoid colitis with probable diverticulitis and sepsis. #1 acute sigmoid colitis/probable diverticulitis/sepsis: CT scan abdomen and pelvis reviewed. Plan: Admit to MedSurg floor, clear liquids, IV fluids, IV Flagyl, IV morphine as needed for pain, Zofran as needed, Tylenol as needed, stool for C. difficile, stool for enteric pathogens, repeat CBC and BMP tomorrow morning, PT OT evaluation and treatment. #2 COPD/chronic respiratory failure: She is on home oxygen at 3.5 to 4 L. Currently, she is on 3 L of oxygen. Chest x-ray was unremarkable. COVID-19 antigen done and was negative. Plan for DuoNeb every 6 hours, albuterol as needed, oxygen to keep O2 saturation above 92%. #3 GERD: Continue Pepcid. #4 hyperlipidemia: She is not on statins. #5 restless leg syndrome: Continue Requip. #6 depression: Continue citalopram and bupropion. #7 DVT prophylaxis: Subcu Lovenox. This note was generated with Aiming dictation software. It may contain incorrect words, spelling, and punctuation that were not noted in checking the note before signing. Inpatient E&M: 13240 Init Hosp L2
[2020-12-28 20:59] VITALS: BP 108/65; PULSE 88; RESP 20; TEMP 37.3; O2SAT 94
[2020-12-28 21:00] VITALS: BMI 26.3
[2020-12-28 21:01] LABS: Lipase 54 U/L (73-393)
[2020-12-28 21:11] VITALS: BMI 26.3
[2020-12-28] MEDS: 0.9% Normal Saline 1,000 ML 100 ML IV (21:18)
[2020-12-28 21:50] VITALS: PULSE 85
[2020-12-28] MEDS: Citalopram 20 MG Tablet PO (22:04)
[2020-12-28] MEDS: CLARIFY ORDER 1 EACH NOTE (22:05)
[2020-12-28] MEDS: Pramipexole Di-HCl 0.25 MG Tablet PO (22:05)
[2020-12-29] VITALS (14 sets, daily range): BP systolic 101–127; BP diastolic 46–69; PULSE 64–119; RESP 17–22; TEMP 36.6–37.6; O2SAT 92–96
[2020-12-29] MEDS: Morphine 2 MG/ML Syringe IV ×2 (03:37→10:40)
[2020-12-29] MEDS: 0.9% Saline Lock 10 ML Syringe IV (03:50)
[2020-12-29] MEDS: 0.9% Normal Saline 1,000 ML 100 ML IV ×2 (05:57→16:36)
[2020-12-29] MEDS: metroNIDAZOLE 500 MG/100 ML BAG 100 MG IV (05:57)
[2020-12-29 06:37] LABS: Absolute Lymphocyte Count 1.74 X10^3/uL (0.83-4.51); Absolute Neutrophil Count 6.9 X10^3/uL (2.0-7.7); Basophil# 0.03 X10^3/uL; Basophil% 0.3 % (0-1); Eosinophil# 0.35 X10^3/uL; Eosinophils% 3.5 % (0-5); Hemoglobin 11.7 g/dL (12.0-15.0); Lymphocyte # 1.74 X10^3/ul (4.0); Lymphocyte % 17.3 % (19-41); Mean Corp Hgb Conc 32.5 g/dL (32-36); Mean Corpuscular Hgb 29.7 pg (27.0-32.0); Mean Corpuscular Volume 91.4 fL (81-99); Mean Platelet Vol. 9.5 fl (6.2-12.0); Monocyte# 1.01 X10^3/uL; NRBC Flagged by Analyzer 0 % (0-5); Neutrophil # 6.92 X10^3/uL (2.7-7.7); Neutrophil % 68.6 % (47-70); Platelet Count 246 K/mm3 (150-450); RBC Distribution Width CV 16.7 % (11.6-14.6); RBC Distribution Width SD 55.6 fl (35.1-43.9); Red Blood Count 3.94 M/mm3 (4.2-5.4); White Blood Count 10.1 K/mm3 (4.4-11.0)
[2020-12-29] MEDS: Ipratropium/Albuterol Sulfate 3 ML AMPUL.NEB INHALATION ×3 (06:45→19:22)
[2020-12-29] MEDS: Budesonide Respules 0.5 MG/2 ML AMPUL.NEB. INHALATION ×2 (06:45→19:22)
[2020-12-29 06:58] LABS: Anion Gap 8 (5-15); BUN 8 mg/dL (7-18); BUN/Creat Ratio 20.6 RATIO (10-20); Calcium,Total 8.1 mg/dL (8.5-10.1); Chloride 108 mmol/L (98-107); Creatinine, Serum 0.39 mg/dL (0.55-1.02); EST Glomerular Filtration Rate 171 mL/min (>60); Est Glom Filt Rate - Afr Amer 207 mL/min (>60); Estimated Creatinine Clearance 40.83 ml/min; Glucose 59 mg/dL (74-106); Potassium 3.3 mmol/L (3.5-5.1); Sodium Level 138 mmol/L (136-145)
[2020-12-29] MEDS: Enoxaparin 40 MG/0.4 ML Syringe SC (08:20)
[2020-12-29] MEDS: Potassium Chloride Oral Tablet 20 MEQ PO (08:21)
[2020-12-29] MEDS: Gabapentin 300 MG Capsule PO ×2 (08:21→16:36)
[2020-12-29] MEDS: Famotidine 20 MG Tablet 40 MG PO (08:21)
--- NOTE | 2020-12-29 10:55 | CASEMGMT ---
ELADIO DAWSON Face to Face with patient for initial transition planning/care coordination assessment. RN SAMIR introduced self and role at [facility]. Patient lying in bed, alert and oriented. Patient willing to participate in assessment and is able to answer all questions appropriately. Care providers, pharmacy, and demographics verified. Patient wishes to discharge home, will monitor for HHC pending progress with therapy. Patient states she has no further needs or concerns at this time. CM to follow for discharge planning needs that may arise. PCP: Moy Specialists:L[place], custom studio coordinator Preferred Pharmacy: [facility] Insurance: [employer] Prescription Benefit: yes Living Will/HPOA: yes, Juan C Kingston, son LNOK: son, daughter Living Arrangements: Patient lives alone in a mobile with 3 steps and railing to enter the home. Patient states she is independent at home. Transportation: [email or web address] or family DME/HHC: Patient states she has shower chair, cane, walker, medical alert, grab bars, nebulizer, [facility] l[facility] Patient states she has had [facility] previous. No previous SNF. Disposition Plan: Patient to discharge home with family support and follow-up plans in place. Will monitor for need for HHC pending therapy. Allyson TAN, RN, CM
--- NOTE | 2020-12-29 17:27 | PCM.PROGNOTE ---
Patient Problems: Active and Suspected Problems (Last Reviewed 08/11/20 @ 14:38 by Paula Vyas) Diverticulitis (Suspected) Acute sigmoid colitis (Acute) Subjective: She was seen and examined today, she complained of left lower quadrant abdominal discomfort and nausea today. Patient states she is unable to take amoxicillin due to tongue swelling, she is however able to take Augmentin which does not make any sense. I have elected to change her from Flagyl IV to meropenem. - Physical Exam Vitals/I&O's: Vital Signs Temp Pulse Resp BP Pulse Ox 99.6 F H 64 18 127/69 H 92 12/29/20 14:30 12/29/20 14:30 12/29/20 14:30 12/29/20 14:30 12/29/20 14:30 Oxygen Flow Rate (L/min) 3 Oxygen Delivery Method Nasal Cannula Weight: 68.5 kg Body Mass Index (BMI) 26.3 Intake and Output for Last 24 Hours 12/27/20 12/28/20 12/29/20 23:59 23:59 23:59 Intake Total 1100 / 1100 2296.67 / 2296.67 Balance 1100 / 1100 2296.67 / 2296.67 General: Alert, Oriented x3, Cooperative, No apparent distress, Well developed HEENT: Atraumatic, PERRLA, EOMI, Normocephalic Oral: Moist Mucosa Neck: Supple, No JVD, Trachea Midline, Thyroid Normal Size and Texture Lungs: Clear to auscultation, Normal air movement, No rhonchi, No wheeze, No rales Cardiovascular: Regular rate, Regular Rhythm, Normal S1, Normal S2, No murmurs, PMI Normal, No rub noted, No Gallop Abdomen: Bowel Sounds Present, Soft, Non-Distended, Tender - Moderate abdominal tenderness is noted over the left lower quadrant Extremities: No clubbing, No cyanosis, No edema, Capillary Refill Less than 3 Seconds Skin: No rashes, No breakdown Musculoskeletal: No Tenderness to Palpation of Joints or Extremities Neurological: Cranial nerves II-XII grossly intact, Neuro grossly intact, Sensory exam intact to light touch and pain, Coordination normal Psych/Mental Status: Normal Affect, Appropriate, Alert and oriented to time, place, person, mood and affect Microbiology Past 72 Hours 12/28/20 00:50 Stool Enteric Bacteriology - Final 12/29/20 00:50 Stool C. difficile DNA Amplification - Final 12/28/20 17:50 Mucosa - Nose SARS-CoV-2 Antigen (Rapid) - Final Laboratory Results 12/28/20 17:35: WBC 15.0 H, RBC 4.66, Hgb 13.8, Hct 41.6, MCV 89.3, MCH 29.6, MCHC 33.2, RDW Std Deviation 53.5 H, RDW Coeff of Jacinto 16.6 H, Plt Count 301, MPV 9.8, Immature Gran % (Auto) 0.500, Neut % (Auto) 79.2 H, Lymph % (Auto) 9.6 L, [place] % (Auto) 9.1, Eos % (Auto) 1.4, Baso % (Auto) 0.2, Absolute Neuts (auto) 11.9 H, Absolute Lymphs (auto) 1.44, Nucleated RBC % 0 12/28/20 17:35: Sodium 132 L, Potassium 3.5, Chloride 99, Carbon Dioxide 23.0, Anion Gap 10, BUN 10, Creatinine 0.56, Estim Creat Clear Calc 40.83, Est GFR (MDRD) Af Amer 135, Est GFR (MDRD) Non-Af 111, BUN/Creatinine Ratio 17.7, Glucose 74, Calcium 8.9, Total Bilirubin 0.80, AST 12 L, ALT 19, Alkaline Phosphatase 63, Troponin I < 0.015, Total Protein 7.5, Albumin 3.5, Globulin 4.0, Albumin/Globulin Ratio 0.9 12/28/20 17:35: Lipase 54 L 12/28/20 18:00: Urine Color Yellow, Urine Clarity Clear, Urine pH 6.0, Ur Specific [place] 1.025, Urine Protein 30 H, Urine Glucose (UA) Normal, Urine Ketones 150 H, Urine Occult Blood 25 H, Urine Nitrite Negative, Urine Bilirubin Negative, Urine Urobilinogen 1 H, Ur Leukocyte Esterase 25 H, Urine RBC 0 SEEN, Urine WBC 0 SEEN, Ur Squamous Epith Cells 0-5 SEEN, Urine Bacteria RARE, Urine Mucus 1+ 12/29/20 06:20: WBC 10.1, RBC 3.94 L, Hgb 11.7 L, Hct 36.0 L, MCV 91.4, MCH 29.7, MCHC 32.5, RDW Std Deviation 55.6 H, RDW Coeff of Jacinto 16.7 H, Plt Count 246, MPV 9.5, Immature Gran % (Auto) 0.300, Neut % (Auto) 68.6, Lymph % (Auto) 17.3 L, [place] % (Auto) 10.0, Eos % (Auto) 3.5, Baso % (Auto) 0.3, Absolute Neuts (auto) 6.9, Absolute Lymphs (auto) 1.74, Nucleated RBC % 0 12/29/20 06:20: Sodium 138, Potassium 3.3 L, Chloride 108 H, Carbon Dioxide 22.0, Anion Gap 8, BUN 8, Creatinine 0.39 L, Estim Creat Clear Calc 40.83, Est GFR (MDRD) Af Amer 207, Est GFR (MDRD) Non-Af 171, BUN/Creatinine Ratio 20.6 H, Glucose 59 L, Calcium 8.1 L Current Medications Acetaminophen (Acetaminophen 325 Mg Tablet) 650 mg PO Q6H PRN PRN PRN Reason: Pain Score 1-10/Temp > 100.7 F Albuterol Sulfate (Albuterol 2.5 Mg/3 Ml Vial.Neb.) 2.5 mg INHALATION Q4H PRN PRN PRN Reason: Shortness of breath, wheezing Albuterol/Ipratropium (Ipratropium/Albuterol Sulfate 3 Ml Ampul.Neb) 3 ml INHALATION Q6H.RT [facility] Last Admin: 12/29/20 13:15 Dose: 3 ml Documented by: Budesonide (Budesonide Respules 0.5 Mg/2 Ml Ampul.Neb.) 0.5 mg INHALATION Q12H.RT [facility] Last Admin: 12/29/20 06:45 Dose: 0.5 mg Documented by: Bupropion HCl (Bupropion (Sr) 150 Mg Tablet.Sa) 150 mg PO BID [facility] Last Admin: 12/29/20 08:36 Dose: Not Given Documented by: Citalopram Hydrobromide (Citalopram 20 Mg Tablet) 20 mg PO QHS [facility] Last Admin: 12/28/20 22:04 Dose: 20 mg Documented by: Enoxaparin Sodium (Enoxaparin 40 Mg/0.4 Ml Syringe) 40 mg SC DAILY [facility] Last Admin: 12/29/20 08:20 Dose: 40 mg Documented by: Famotidine (Famotidine 20 Mg Tablet) 40 mg PO DAILY [facility] Last Admin: 12/29/20 08:21 Dose: 40 mg Documented by: Gabapentin (Gabapentin 300 Mg Capsule) 300 mg PO BIDCM [facility] Last Admin: 12/29/20 16:36 Dose: 300 mg Documented by: Sodium Chloride () 1,000 mls @ 150 mls/hr IV .[id number] [facility] Last Admin: 12/29/20 16:36 Dose: 100 mls/hr Documented by: Sodium Chloride () 250 mls @ 15 mls/hr IV .[id number] PRN PRN Reason: Saline Flush Sodium Chloride () 250 mls @ 15 mls/hr IV .[id number] PRN PRN Reason: Additional IVPB Infusion Meropenem 500 mg/ Sodium (Chloride) 60 mls @ 100 mls/hr IV Q8 [facility] Last Admin: 12/29/20 14:27 Dose: 100 mls/hr Documented by: Morphine Sulfate (Morphine 2 Mg/Ml Syringe) 2 mg IV Q4H PRN PRN PRN Reason: Pain Score 6-10 Last Admin: 12/29/20 10:40 Dose: 2 mg Documented by: Ondansetron HCl (Ondansetron 4 Mg/2 Ml Vial) 4 mg IV Q8H PRN PRN PRN Reason: NAUSEA/VOMITING Potassium Chloride (Potassium Chloride Oral Tablet 20 Meq) 20 meq PO DAILY [facility] Last Admin: 12/29/20 08:21 Dose: 20 meq Documented by: Pramipexole Dihydrochloride (Pramipexole Di-Hcl 0.25 Mg Tablet) 0.25 mg PO QHS [facility] Last Admin: 12/28/20 22:05 Dose: 0.25 mg Documented by: Sodium Chloride (0.9% Saline Lock 10 Ml Syringe) 10 - 40 ml IV UD PRN PRN Reason: SALINE FLUSH Last Admin: 12/29/20 03:50 Dose: 10 ml Documented by: Zolpidem Tartrate (Zolpidem Tartrate 5 Mg Tablet) 5 mg PO QHS PRN PRN PRN Reason: INSOMNIA Medical Necessity - Tobacco Use Smoking Status: Current every day smoker Tobacco Use: Cigarettes Assessment/Plan All Active Problems (Last Reviewed 08/11/20 @ 14:38 by Paula Vyas) Acute sigmoid colitis (Acute) #1 acute sigmoid colitis-patient will continue on meropenem at this time, patient C. difficile toxin was negative, enteric pathogen panel was negative on stool #2 chronic obstructive pulmonary disease #3 hyperlipidemia #4 chronic hypoxic respiratory failure secondary to COPD-patient is on chronic home O2, patient states she continues to smoke #5 GERD Inpatient E&M: 17944 Subs Hosp L2
[2020-12-29] MEDS: Zolpidem Tartrate 5 MG Tablet PO (21:53)
[2020-12-29] MEDS: Pramipexole Di-HCl 0.25 MG Tablet PO (21:54)
[2020-12-29] MEDS: Citalopram 20 MG Tablet PO (21:54)
[2020-12-29] MEDS: 0.9% Normal Saline 1,000 ML 150 ML IV (23:51)
[2020-12-30] VITALS (14 sets, daily range): BP systolic 92–117; BP diastolic 50–61; PULSE 90–114; RESP 18–28; TEMP 36.9–37.2; O2SAT 94–97
[2020-12-30] MEDS: Albuterol 2.5 MG/3 ML VIAL.NEB. INHALATION (02:31)
[2020-12-30] MEDS: 0.9% Normal Saline 1,000 ML 150 ML IV ×2 (05:30→12:51)
[2020-12-30 06:48] LABS: Absolute Lymphocyte Count 0.82 X10^3/uL (0.83-4.51); Absolute Neutrophil Count 10.2 X10^3/uL (2.0-7.7); Basophil# 0.02 X10^3/uL; Basophil% 0.2 % (0-1); Hematocrit 35.6 % (37-47); Hemoglobin 11.3 g/dL (12.0-15.0); Lymphocyte # 0.82 X10^3/ul (4.0); Lymphocyte % 6.7 % (19-41); Mean Corp Hgb Conc 31.7 g/dL (32-36); Mean Corpuscular Hgb 29.3 pg (27.0-32.0); Mean Corpuscular Volume 92.2 fL (81-99); Mean Platelet Vol. 9.9 fl (6.2-12.0); Monocyte# 1.19 X10^3/uL; Monocyte% 9.7 % (0-10); NRBC Flagged by Analyzer 0 % (0-5); Neutrophil # 10.23 X10^3/uL (2.7-7.7); Neutrophil % 83.1 % (47-70); Platelet Count 261 K/mm3 (150-450); RBC Distribution Width CV 16.6 % (11.6-14.6); RBC Distribution Width SD 56.3 fl (35.1-43.9); Red Blood Count 3.86 M/mm3 (4.2-5.4); White Blood Count 12.3 K/mm3 (4.4-11.0)
[2020-12-30] MEDS: Budesonide Respules 0.5 MG/2 ML AMPUL.NEB. INHALATION ×2 (07:06→19:32)
[2020-12-30] MEDS: Ipratropium/Albuterol Sulfate 3 ML AMPUL.NEB INHALATION ×3 (07:06→19:32)
[2020-12-30 07:15] LABS: Anion Gap 6 (5-15); BUN 8 mg/dL (7-18); BUN/Creat Ratio 17.5 RATIO (10-20); Chloride 112 mmol/L (98-107); Creatinine, Serum 0.46 mg/dL (0.55-1.02); EST Glomerular Filtration Rate 142 mL/min (>60); Est Glom Filt Rate - Afr Amer 172 mL/min (>60); Estimated Creatinine Clearance 40.83 ml/min; Glucose 146 mg/dL (74-106); Sodium Level 138 mmol/L (136-145)
[2020-12-30] MEDS: Enoxaparin 40 MG/0.4 ML Syringe SC (08:11)
[2020-12-30] MEDS: Gabapentin 300 MG Capsule PO ×2 (08:11→17:52)
[2020-12-30] MEDS: Famotidine 20 MG Tablet 40 MG PO (08:12)
[2020-12-30] MEDS: Potassium Chloride Oral Tablet 20 MEQ PO (08:12)
[2020-12-30] MEDS: Morphine 2 MG/ML Syringe IV ×3 (08:13→17:50)
[2020-12-30] MEDS: 0.9% Saline Lock 10 ML Syringe IV ×3 (08:13→20:30)
--- NOTE | 2020-12-30 11:33 | CASEMGMT ---
ELADIO DAWSON NOTE: Call placed to [facility] and spoke w/Jacek. Current home O2 orders are: 2 l/m continuously. ELADIO CM to room to talk with pt. Pt states she has been using 3-4 L/M O2 at times at home, stating, one of my doctors told her she could turn her O2 up to 3 or 4 L/M, but she does not remember if it was Dr Winter or Dr Koenig. Pt is currently on 3 L/M at rest. Pt to be tested on baseline O2 of 2 L/M @ discharge. Green sheet placed on chart w/instructions on testing. If pt requires more than 2 L/M @ rest or with exertion, updated script for increase in O2 requirements to be faxed to [facility]. Pt states she currently has an nurse, Valdze Kingston, from [facility] come to her home. Call placed to Lon @ [facility]. Pt is active with them. She was notified pt has been admitted to [facility]. PT/OT evals have been reviewed. Additional therapy recommended. Pt made aware and discussed options of HHC and OP therapy with pt. Discussed requirements of being homebound for insurance to cover HHC. Pt states she is not homebound, stating she ambulates without assistive device and it is not difficult for her to get in/out of a car to go places. She states she is not interested in OP therapy, stating she has done this in the past and does not wish to do this again at this time. Pt was made aware, if in the future, she is interested in OP therapy, or if she would become homebound, to discuss options of either HHC or OP therapy with her PCP or with [facility]. She voices understanding. Pt states she has a CM, Nata Kuhn. She states she used to have aides come to her home, but since her granddaughter has been staying with her she does not need them to come any longer. Allyson CERDA, made aware pt has CM. Monica TAN RN, CM
--- NOTE | 2020-12-30 12:20 | CASEMGMT ---
Social Work Note SW updated that pt has CM Nata Cao. SW placed a call to Nata and left message updating her on pt's admission to [facility]. Allyson Trinh RESIDENTIAL CARPENTER, EDGE TRIMMER MECHANIC
[2020-12-30] MEDS: Potassium Chloride Oral Tablet 20 MEQ 40 MEQ PO (12:46)
--- NOTE | 2020-12-30 17:44 | PCM.PROGNOTE ---
Patient Problems: Active and Suspected Problems (Last Reviewed 08/11/20 @ 14:38 by Paula Vyas) Diverticulitis (Suspected) Acute sigmoid colitis (Acute) Subjective: Patient was seen and examined today, her labs this morning showed a slightly low potassium and her white blood cell count was slightly elevated. Patient does not complain of any diarrhea today, I have advanced her diet today to regular diet. - Physical Exam Vitals/I&O's: Vital Signs Temp Pulse Resp BP Pulse Ox 98.8 F 96 20 H 111/59 L 94 12/30/20 11:15 12/30/20 13:00 12/30/20 13:00 12/30/20 11:15 12/30/20 11:15 Oxygen Flow Rate (L/min) 3 Oxygen Delivery Method Nasal Cannula Weight: 68.5 kg Body Mass Index (BMI) 26.3 Intake and Output for Last 24 Hours 12/28/20 12/29/20 12/30/20 23:59 23:59 23:59 Intake Total 1100 / 1100 3081.67 / 3081.67 3237.5 / 3237.5 Balance 1100 / 1100 3081.67 / 3081.67 3237.5 / 3237.5 General: Alert, Oriented x3, Cooperative, No apparent distress, Well developed HEENT: Atraumatic, PERRLA, EOMI, Normocephalic Neck: Supple, Trachea Midline, Thyroid Normal Size and Texture Lungs: Clear to auscultation, Normal air movement, No rhonchi, No wheeze, No rales Cardiovascular: Regular rate, Regular Rhythm, Normal S1, Normal S2, No murmurs, PMI Normal, No rub noted, No Gallop Abdomen: Bowel Sounds Present, Soft, Non-Distended, Tender - Mild left lower quadrant abdominal tenderness is noted Extremities: No clubbing, No cyanosis, No edema, Capillary Refill Less than 3 Seconds Skin: No rashes, No breakdown Musculoskeletal: No Tenderness to Palpation of Joints or Extremities Neurological: Cranial nerves II-XII grossly intact, Neuro grossly intact, Sensory exam intact to light touch and pain Psych/Mental Status: Normal Affect, Appropriate, Alert and oriented to time, place, person, mood and affect Microbiology Past 72 Hours 12/28/20 00:50 Stool Enteric Bacteriology - Final 12/29/20 00:50 Stool C. difficile DNA Amplification - Final 12/28/20 17:50 Mucosa - Nose SARS-CoV-2 Antigen (Rapid) - Final Laboratory Results 12/30/20 05:52: WBC 12.3 H, RBC 3.86 L, Hgb 11.3 L, Hct 35.6 L, MCV 92.2, MCH 29.3, MCHC 31.7 L, RDW Std Deviation 56.3 H, RDW Coeff of Jacinto 16.6 H, Plt Count 261, MPV 9.9, Immature Gran % (Auto) 0.300, Neut % (Auto) 83.1 H, Lymph % (Auto) 6.7 L, Pickett % (Auto) 9.7, Eos % (Auto) 0.0, Baso % (Auto) 0.2, Absolute Neuts (auto) 10.2 H, Absolute Lymphs (auto) 0.82 L, Nucleated RBC % 0 12/30/20 05:52: Sodium 138, Potassium 3.0 L, Chloride 112 H, Carbon Dioxide 20.0 L, Anion Gap 6, BUN 8, Creatinine 0.46 L, Estim Creat Clear Calc 40.83, Est GFR (MDRD) Af Amer 172, Est GFR (MDRD) Non-Af 142, BUN/Creatinine Ratio 17.5, Glucose 146 H, Calcium 8.0 L Current Medications Acetaminophen (Acetaminophen 325 Mg Tablet) 650 mg PO Q6H PRN PRN PRN Reason: Pain Score 1-10/Temp > 100.7 F Albuterol Sulfate (Albuterol 2.5 Mg/3 Ml Vial.Neb.) 2.5 mg INHALATION Q4H PRN PRN PRN Reason: Shortness of breath, wheezing Last Admin: 12/30/20 02:31 Dose: 2.5 mg Documented by: Albuterol/Ipratropium (Ipratropium/Albuterol Sulfate 3 Ml Ampul.Neb) 3 ml INHALATION Q6H.RT RAUL Last Admin: 12/30/20 13:00 Dose: 3 ml Documented by: Budesonide (Budesonide Respules 0.5 Mg/2 Ml Ampul.Neb.) 0.5 mg INHALATION Q12H.RT [facility] Last Admin: 12/30/20 07:06 Dose: 0.5 mg Documented by: Bupropion HCl (Bupropion (Sr) 150 Mg Tablet.Sa) 150 mg PO BID [facility] Last Admin: 12/30/20 08:13 Dose: Not Given Documented by: Citalopram Hydrobromide (Citalopram 20 Mg Tablet) 20 mg PO QHS [facility] Last Admin: 12/29/20 21:54 Dose: 20 mg Documented by: Enoxaparin Sodium (Enoxaparin 40 Mg/0.4 Ml Syringe) 40 mg SC DAILY [facility] Last Admin: 12/30/20 08:11 Dose: 40 mg Documented by: Famotidine (Famotidine 20 Mg Tablet) 40 mg PO DAILY [facility] Last Admin: 12/30/20 08:12 Dose: 40 mg Documented by: [facility] ([facility]ule) [facility] Admin: 12/30/20 08:11 Dose: 300 mg Documented by: Sodium Chloride () 250 mls @ 15 mls/hr IV .[id number] PRN PRN Reason: Saline Flush Sodium Chloride () 250 mls @ 15 mls/hr IV .[id number] PRN PRN Reason: Additional IVPB Infusion Meropenem 500 mg/ Sodium (Chloride) 60 mls @ 100 mls/hr IV Q8 [facility] Last Infusion: 12/30/20 16:30 Dose: Infused Documented by: Morphine Sulfate (Morphine 2 Mg/Ml Syringe) 2 mg IV Q4H PRN PRN PRN Reason: Pain Score 6-10 Last Admin: 12/30/20 12:46 Dose: 2 mg Documented by: Ondansetron HCl (Ondansetron 4 Mg/2 Ml Vial) 4 mg IV Q8H PRN PRN PRN Reason: NAUSEA/VOMITING Potassium Chloride (Potassium Chloride Oral Tablet 20 Meq) 20 meq PO DAILY [facility] Last Admin: 12/30/20 08:12 Dose: 20 meq Documented by: Pramipexole Dihydrochloride (Pramipexole Di-Hcl 0.25 Mg Tablet) 0.25 mg PO QHS [facility] Last Admin: 12/29/20 21:54 Dose: 0.25 mg Documented by: Sodium Chloride (0.9% Saline Lock 10 Ml Syringe) 10 - 40 ml IV UD PRN PRN Reason: SALINE FLUSH Last Admin: 12/30/20 12:47 Dose: 10 ml Documented by: Zolpidem Tartrate (Zolpidem Tartrate 5 Mg Tablet) 5 mg PO QHS PRN PRN PRN Reason: INSOMNIA Last Admin: 12/29/20 21:53 Dose: 5 mg Documented by: Medical Necessity - Tobacco Use Smoking Status: Current every day smoker Tobacco Use: Cigarettes Assessment/Plan All Active Problems (Last Reviewed 08/11/20 @ 14:38 by Paula Vyas) Acute sigmoid colitis (Acute) #1 acute sigmoid colitis-patient will continue on meropenem at this time-labs will be repeated in the morning #2 chronic obstructive pulmonary disease #3 hyperlipidemia #4 chronic hypoxic respiratory failure secondary to COPD-patient is on chronic home O2, patient states she continues to smoke #5 GERD Inpatient E&M: 06378 Subs Hosp L2
[2020-12-30] MEDS: Zolpidem Tartrate 5 MG Tablet PO (20:26)
[2020-12-30] MEDS: Acetaminophen 325 MG Tablet 650 MG PO (20:26)
[2020-12-30] MEDS: buPROPion (SR) 150 MG Tablet.SA PO (20:27)
[2020-12-30] MEDS: Citalopram 20 MG Tablet PO (20:34)
[2020-12-30] MEDS: Pramipexole Di-HCl 0.25 MG Tablet PO (20:34)
[2020-12-31] VITALS (8 sets, daily range): BP systolic 106–128; BP diastolic 62–75; PULSE 92–114; RESP 18–21; TEMP 36.6–37.1; O2SAT 94–100
[2020-12-31] MEDS: Acetaminophen 325 MG Tablet 650 MG PO ×2 (02:06→12:20)
[2020-12-31] MEDS: 0.9% Saline Lock 10 ML Syringe IV (02:06)
[2020-12-31] MEDS: Morphine 2 MG/ML Syringe IV (02:06)
[2020-12-31] MEDS: Ipratropium/Albuterol Sulfate 3 ML AMPUL.NEB INHALATION ×2 (02:14→07:05)
[2020-12-31] MEDS: Budesonide Respules 0.5 MG/2 ML AMPUL.NEB. INHALATION (07:05)
[2020-12-31 07:13] LABS: Absolute Lymphocyte Count 0.92 X10^3/uL (0.83-4.51); Absolute Neutrophil Count 8.8 X10^3/uL (2.0-7.7); Basophil# 0.02 X10^3/uL; Basophil% 0.2 % (0-1); Eosinophil# 0.11 X10^3/uL; Hemoglobin 10.9 g/dL (12.0-15.0); Lymphocyte # 0.92 X10^3/ul (4.0); Lymphocyte % 8.5 % (19-41); Mean Corpuscular Hgb 29.3 pg (27.0-32.0); Mean Corpuscular Volume 88.7 fL (81-99); Mean Platelet Vol. 10.1 fl (6.2-12.0); Monocyte# 0.93 X10^3/uL; Monocyte% 8.6 % (0-10); NRBC Flagged by Analyzer 0 % (0-5); Neutrophil # 8.81 X10^3/uL (2.7-7.7); Neutrophil % 81.1 % (47-70); Platelet Count 242 K/mm3 (150-450); RBC Distribution Width CV 16.5 % (11.6-14.6); RBC Distribution Width SD 53.8 fl (35.1-43.9); Red Blood Count 3.72 M/mm3 (4.2-5.4); White Blood Count 10.9 K/mm3 (4.4-11.0)
[2020-12-31 07:30] LABS: Anion Gap 4 (5-15); BUN 5 mg/dL (7-18); BUN/Creat Ratio 17.7 RATIO (10-20); Calcium,Total 8.4 mg/dL (8.5-10.1); Chloride 110 mmol/L (98-107); Creatinine, Serum 0.28 mg/dL (0.55-1.02); EST Glomerular Filtration Rate 248 mL/min (>60); Est Glom Filt Rate - Afr Amer 300 mL/min (>60); Estimated Creatinine Clearance 40.83 ml/min; Glucose 94 mg/dL (74-106); Potassium 3.4 mmol/L (3.5-5.1); Sodium Level 139 mmol/L (136-145)
[2020-12-31] MEDS: Gabapentin 300 MG Capsule PO (08:17)
[2020-12-31] MEDS: Potassium Chloride Oral Tablet 20 MEQ PO (08:17)
[2020-12-31] MEDS: Famotidine 20 MG Tablet 40 MG PO (08:17)
[2020-12-31] MEDS: Enoxaparin 40 MG/0.4 ML Syringe SC (08:18)
[2020-12-31] MEDS: buPROPion (SR) 150 MG Tablet.SA PO (08:20)
--- NOTE | 2020-12-31 11:23 | PCM.DC ---
- Discharge Diagnoses Current Active Problems: Current Active and Chronic Problems (Last Reviewed 08/11/20 @ 14:38 by Paula Vyas) Acute sigmoid colitis (Acute) Degenerative disc disease, cervical (Chronic) Tobacco abuse (Chronic) RLS (restless legs syndrome) (Chronic) History of chronic respiratory failure (Chronic) HLD (hyperlipidemia) (Chronic) GERD (gastroesophageal reflux disease) (Chronic) COPD (chronic obstructive pulmonary disease) (Chronic) You will use the following diet at home:: No restrictions Your food should be the consistency of: Regular Your liquids should be the consistency of: Regular/Thin Discharge Activity: Return to Normal Activity Weight Bearing Status: Full weight bearing Allergies/Adverse Reactions: Allergies bupropion HCl [From Wellbutrin] Allergy (Verified 12/30/20 23:19) Anaphylaxis only if doesnt take her brand from home cephalexin monohydrate [From Keflex] Allergy (Verified 12/28/20 17:16) Anaphylaxis levofloxacin Allergy (Verified 12/28/20 17:16) Anaphylaxis Penicillins [PCN] Allergy (Verified 12/28/20 17:16) Anaphylaxis Medications to take at Discharge Furosemide [Lasix] 40 mg PO DAILY 09/19/16 Gabapentin [Neurontin] 300 mg PO BIDCM 09/19/16 Roflumilast [Daliresp] 500 mcg PO DAILY 09/19/16 Ropinirole HCl [Requip] 0.5 mg PO QHS 09/19/16 Alendronate Sodium [Fosamax] 70 mg PO WE 10/24/18 Famotidine 40 mg PO DAILY 10/24/18 Fluticasone/Vilanterol [Breo Ellipta 200-25 Mcg INH] 1 puff INHALATION DAILY 10/24/18 Ipratropium/Albuterol Sulfate [Duoneb] 3 ml INHALATION Q4H.RT 10/24/18 Albuterol Aerosols 2.5 - 3 ml INHALATION DAILY 11/23/20 Budesonide 0.5 mg INHALATION BID 11/23/20 Bupropion HCl 150 mg PO BID 11/23/20 Citalopram 20 mg PO QHS 11/23/20 Loratadine 10 mg PO DAILY 11/23/20 Multivitamin 1,000 mg PO DAILY 11/23/20 Potassium 20 meq PO DAILY 11/23/20 Spiriva 18 mcg INHALATION DAILY 03/03/21 Symbicort 160-4.5 Mcg Inhaler 4.5 mcg INHALATION BID 11/23/20 Vitamin B12 2,500 mcg PO DAILY 11/23/20 Vitamin C 1,000 mg PO DAILY 11/23/20 metroNIDAZOLE [Flagyl] 500 mg PO TID #21 tablet 12/31/20 The following prescriptions were given: metroNIDAZOLE [Flagyl] 500 mg PO TID #21 tablet Transmission Status: Pending to [facility] Primary Care Physician: Shayne Winter Chi, MD [Primary Care Provider] - Please follow up with your Primary Care Physician in: next week Test Results: Test results from this visit will be discussed in further detail at your follow-up appointment, if applicable.
--- NOTE | 2021-01-01 08:30 | PCM.DC.SUM ---
Discharge Date and Diagnosis - Problem List Patient Problems: Active and Suspected Problems (Last Reviewed 08/11/20 @ 14:38 by Paula Vyas) Diverticulitis (Suspected) Acute sigmoid colitis (Acute) Date of Admission: 12/28/20 Date of Discharge: 12/31/20 - Primary Discharge Diagnosis Acute Problems: Active Problems (Last Reviewed 08/11/20 @ 14:38 by Paula Vyas) #1 acute sigmoid colitis-etiology unknown #2 chronic obstructive pulmonary disease #3 hyperlipidemia #4 chronic hypoxic respiratory failure secondary to COPD #5 GERD Suspected Problems: Suspected Problems (Last Reviewed 08/11/20 @ 14:38 by Paula Vyas) Diverticulitis (Suspected) - Secondary Discharge Diagnosis Chronic Problems: Chronic Problems (Last Reviewed 08/11/20 @ 14:38 by Paula Vyas) Degenerative disc disease, cervical (Chronic) Tobacco abuse (Chronic) RLS (restless legs syndrome) (Chronic) History of chronic respiratory failure (Chronic) HLD (hyperlipidemia) (Chronic) GERD (gastroesophageal reflux disease) (Chronic) COPD (chronic obstructive pulmonary disease) (Chronic) Hospital Course and Treatment Operations: None Procedures: None Summary of Care Provided: The patient is a 75 year old F who was seen in the emergency room at [facility] with a chief complaint of left lower quadrant abdominal pain and diarrhea. She denied fever, she denied blood in her stool. Patient recently had her first COVID-19 vaccine approximately week prior. Work-up in the emergency room showed an elevated white blood cell count at 15,000, chemistry panel was unremarkable, patient's abdominal and pelvic CT showed mild wall thickening of the sigmoid colon with adjacent mesentery stranding suspicious for inflammation. Patient was felt to have colitis, she was admitted to [place] [address] and placed on IV antibiotics, her white count trended downward during her admission and her respiratory status remained stable. The exact etiology of the colitis was unknown, patient's enteric stool panel was unremarkable and her C. difficile toxin was negative. Patient improved during her hospital stay but had some mild left lower quadrant abdominal tenderness at the time of discharge still. On 12/31/2020, patient was seen and examined: On examination she appeared in good health and spirits, she does not appear to be in any distress. Vital signs as documented. Skin warm and dry and without overt rashes. Neck without JVD, thyroid appears normal, trachea is midline, neck is supple. Lungs clear, normal air movement was noted. Heart exam notable for regular rhythm, normal sounds and absence of murmurs, rubs or gallops. Abdomen unremarkable and without evidence of organomegaly, masses, or abdominal aortic enlargement, bowel sounds are present in all 4 quadrants, no abdominal tenderness was noted. Extremities nonedematous, no cyanosis was noted, no clubbing was noted. Neuro: Cranial nerves II through XII are grossly intact, no focal motor deficits were noted, sensation to light touch and pinprick is intact, motor exam 5/5 throughout. Psych: Patient is alert and oriented x3, she does not appear anxious or depressed, she does not appear agitated. Patient was felt to be stable for discharge on 12/31/2020, she was instructed to follow-up with her PCP after discharge. Patient Problems: Active and Suspected Problems (Last Reviewed 08/11/20 @ 14:38 by Paula Vyas) Diverticulitis (Suspected) Acute sigmoid colitis (Acute) - Physical Exam Vitals/I&O's: Vital Signs Temp Pulse Resp BP Pulse Ox 98.3 F 96 20 H 113/69 94 12/31/20 13:30 12/31/20 13:30 12/31/20 13:30 12/31/20 13:30 12/31/20 13:30 Oxygen Flow Rate (L/min) 2 Oxygen Delivery Method Nasal Cannula Weight: 68.5 kg Body Mass Index (BMI) 26.3 Intake and Output for Last 24 Hours 12/30/20 12/31/20 01/01/21 23:59 23:59 23:59 Intake Total 3537.5 / 3537.5 60 / 60 Balance 3537.5 / 3537.5 60 / 60 Microbiology Past 72 Hours 12/28/20 00:50 Stool Enteric Bacteriology - Final 12/29/20 00:50 Stool C. difficile DNA Amplification - Final Discharge Activity: Return to Normal Activity Weight Bearing Status: Full weight bearing Home Medications: Medications to take at Discharge Furosemide [Lasix] 40 mg PO DAILY 09/19/16 Gabapentin [Neurontin] 300 mg PO BIDCM 09/19/16 Roflumilast [Daliresp] 500 mcg PO DAILY 09/19/16 Ropinirole HCl [Requip] 0.5 mg PO QHS 09/19/16 Alendronate Sodium [Fosamax] 70 mg PO WE 10/24/18 Famotidine 40 mg PO DAILY 10/24/18 Fluticasone/Vilanterol [Breo Ellipta 200-25 Mcg INH] 1 puff INHALATION DAILY 10/24/18 Ipratropium/Albuterol Sulfate [Duoneb] 3 ml INHALATION Q4H.RT 10/24/18 Albuterol Aerosols 2.5 - 3 ml INHALATION DAILY 11/23/20 Budesonide 0.5 mg INHALATION BID 11/23/20 Bupropion HCl 150 mg PO BID 11/23/20 Citalopram 20 mg PO QHS 11/23/20 Loratadine 10 mg PO DAILY 11/23/20 Multivitamin 1,000 mg PO DAILY 11/23/20 Potassium 20 meq PO DAILY 11/23/20 Spiriva 18 mcg INHALATION DAILY 11/23/20 Symbicort 160-4.5 Mcg Inhaler 4.5 mcg INHALATION BID 11/23/20 Vitamin B12 2,500 mcg PO DAILY 11/23/20 Vitamin C 1,000 mg PO DAILY 11/23/20 metroNIDAZOLE [Flagyl] 500 mg PO TID #21 tablet 12/31/20 Following Prescriptions Were Given to Patient: metroNIDAZOLE [Flagyl] 500 mg PO TID #21 tablet Transmission Status: Received by [facility] Primary Care Physician: Shayne Winter Chi, MD [Primary Care Provider] - Please follow up with your Primary Care Physician in: next week Disposition: Home Minutes spent on discharge:: 32 Patient Condition:: Stable Medical Necessity - Tobacco Use Smoking Status: Current every day smoker Tobacco Use: Cigarettes Meaningful Use Info Meaningful Use Diagnoses (Choose all that apply): None applicable Inpatient E&M: 86205 Disch Hosp
--- NOTE | 2021-01-02 11:42 | CASEMGMT ---
Social Work Note ZAIDA received call from Nata Cao at [facility] asking when pt was discharged. ZAIDA reviewed chart. Pt was discharged Saturday. Nata requests discharge paperwork to be faxed. ZAIDA faxed discharge paperwork to Nata Cao. Allyson Trinh [employer], BOTTLE LINE WORKER
--- NOTE | 2021-01-02 15:14 | CASEMGMT ---
ELADIO DAWSON Discharge Follow Up Phone Call: ROB: Nick Strata: 3 Call Date: 01.02.21 Discharge Date: 12.31.20 Time of Call: 1510 Duration: 3 min Admitting Dx: Acute sigmoid colitis ELADIO DAWSON completed follow up phone call after recent hospitalization. Pt states she is doing ok after dc. States she feels weak and is having some pain. She states she has not made her follow appt with yet. Made her aware that she can make appt and discuss her pain with him as she is requesting a med for this. Also made her aware that he could order HHS if she would like and he agreed. She states she will discuss with him. States her dtr is helping her at home currently. Pt rx was brought up to room before pt left hospital and pt is taking. Pt denies further questions regarding medications or dc instructions.
== END 2020-12-31 13:02 | disposition home or self-care (01) | DRG 392 ==
LOC: ED 18:59 → MS3 20:11
PROVIDERS: Admitting Provider Hospitalist; Emergency Provider Emergency Medicine; PCP Family Medicine Geriatric Medicine; Visit Provider Internal Medicine
DX: K52.9 Noninfective gastroenteritis and colitis, unspecified (principal); K57.92 Diverticulitis of intestine, part unspecified, without perforation or abscess without bleeding; J96.11 Chronic respiratory failure with hypoxia; J44.9 Chronic obstructive pulmonary disease, unspecified; K21.9 Gastro-esophageal reflux disease without esophagitis; E78.5 Hyperlipidemia, unspecified; G25.81 Restless legs syndrome; F32.9 Major depressive disorder, single episode, unspecified; M50.30 Other cervical disc degeneration, unspecified cervical region; F17.210 Nicotine dependence, cigarettes, uncomplicated; Z99.81 Dependence on supplemental oxygen; Z79.51 Long term (current) use of inhaled steroids; Z79.83 Long term (current) use of bisphosphonates; Z80.0 Family history of malignant neoplasm of digestive organs; Z82.5 Family history of asthma and other chronic lower respiratory diseases; Z90.49 Acquired absence of other specified parts of digestive tract; Z90.710 Acquired absence of both cervix and uterus
CPT/HCPCS: 36415; 71045; 74177; 80048; 80053; 81001; 83690; 84484; 85025; 87426; 87493; 87506; 93005; 94640; 97110; 97162; 97166; 97530; 99251; 99285; 99406; J2185; J7030; Q9967; A4216; G0463

== ENCOUNTER 2021-01-03 17:28 | Inpatient (IN) | payer MEDICARE, MEDICAID, SELFPAY ==
[2021-01-03] VITALS (9 sets, daily range): BP systolic 107–136; BP diastolic 54–75; PULSE 83–102; RESP 17–28; TEMP 37.1–37.7; O2SAT 70–96; BMI 24.7; BMI 27.0; BMI 27.1
--- NOTE | 2021-01-03 17:44 | EKG12_ITS ---
Test Reason : GENERAL ILLNESS Blood Pressure : / mmHG Vent. Rate : 091 BPM Atrial Rate : 091 BPM P-R Int : 118 ms QRS Dur : 086 ms QT Int : 374 ms P-R-T Axes : 076 036 075 degrees QTc Int : 460 ms Normal sinus rhythm Low voltage QRS Borderline ECG Confirmed by YANNICK RAMÍREZ, EMERALD ([id number]), state editor ELMIRA SOLIZ ([id number]) on 01/04/2021 1:08:05 PM Referred By: LOBITO Confirmed By:EMERALD LANIER MD
--- NOTE | 2021-01-03 17:50 | ED.DCSUM_ITS ---
History of Present Illness Chief Complaint: Abd Pain Informant: Patient Onset: Days Context: Sudden Onset - Suddenly worse Timing: Continuous, Waxes and wanes Quality: Abdomen Location: Somewhat generalized Current Severity: Mild Maximum Severity: Severe Worsened by: Movement Relieved by: Nothing Associated Symptoms: Nausea, diarrhea Narrative: Patient was recently admitted for colitis. She is placed on antibiotics. Her abdominal pain got worse. She states she has a bulge. She is not able to say when she first noted the bulge. She denies history of hernia. She states the pain is significant. He does have history of COPD. She does use oxygen occasionally. Reportedly her pulse ox was 74% on room air. She does have a cough. Her cough is less productive than normal and sputum is clear. She denies headache, visual, ocular auditory symptoms. She denies rhinorrhea, congestion or postnasal drainage. She denies sore throat. She denies chest pain. She does report shortness of breath and dyspnea exertion. Denies orthopnea PND. She points to the upper abdomen when asked to localize the abdominal pain. She denies dysuria, frequency, urgency or hematuria. She denies blood or mucus in her stool. Prior similar symptoms: No Recent Illness/Hospitalization: Yes - Past Medical History (1) Diverticulitis Status: Suspected (2) Degenerative disc disease, cervical Status: Chronic (3) Tobacco abuse Status: Chronic (4) RLS (restless legs syndrome) Status: Chronic (5) History of chronic respiratory failure Status: Chronic (6) HLD (hyperlipidemia) Status: Chronic (7) GERD (gastroesophageal reflux disease) Status: Chronic (8) COPD (chronic obstructive pulmonary disease) Status: Chronic Past Medical History - Allergies and Home Meds Allergies/Adverse Reactions: Allergies bupropion HCl [From Wellbutrin] Allergy (Verified 01/03/21 17:28) Anaphylaxis only if doesnt take her brand from home cephalexin monohydrate [From Keflex] Allergy (Verified 01/03/21 17:28) Anaphylaxis levofloxacin Allergy (Verified 01/03/21 17:28) Anaphylaxis Penicillins [PCN] Allergy (Verified 01/03/21 17:28) Anaphylaxis Primary Care Physician: Shayne Winter Chi, MD [Primary Care Provider] - Prior records reviewed: Yes Surgical History: appendectomy, cholecystectomy, hysterectomy, tonsillectomy, - - Cataract surgery. Lives: Spouse/ Significant Other Smoking Status: Current every day smoker Alcohol: None Drugs: None - Family History Maternal Family History: Family History (Last Reviewed 08/11/20 @ 14:38 by Paula Vyas) Father Colon cancer Heart disease Family History: Reports: - - Mother of history w/ lung clot. Paternal Family History: Family History (Last Reviewed 08/11/20 @ 14:38 by Paula Vyas) Father Colon cancer Heart disease Family History: Reports: COPD - Father w/ COPD, tobacco user., - - Colon cancer. Review of Systems General: Denies: Chills, Fever, Malaise, Subjective Eyes: Denies: Visual changes - bilaterally, Blurred Vision - bilaterally ENT: Denies: Bilateral ear pain, Rhinorrhea, Sore throat Cardiovascular: Denies: Chest pain, Palpitations Respiratory: Reports: Dyspnea, Cough, Sputum, Dyspnea on exertion. Denies: Orthopnea, Paroxysmal nocturnal dyspnea Gastrointestinal: Reports: Abdominal pain, Nausea, Diarrhea. Denies: Melena, Hematochezia Genitourinary: Denies: Dysuria, Hematuria, Frequency Musculoskeletal: Denies: Myalgias, Arthralgias, Back pain, Swelling, Extremity Pain Skin: Denies: Rash, Wounds Neurological: Denies: Headache, Weakness Endocrine: Denies: Polyuria, Polydipsia Hematologic: Denies: Easy bruising, Easy bleeding Allergy: Denies: Uticaria, Swelling of the mouth, Swelling of the tongue Physical Exam Vital Signs/Narrative: Vital Signs Temp Pulse Resp BP Pulse Ox 01/03/21 17:33 94 01/03/21 17:29 98.7 F 102 H 24 H 136/75 H 74 Inital Vital Signs reviewed: Yes General: Well nourished, Well developed, Acute Distress Head: Normocephalic, Atraumatic Eyes: Perrl, EOMI. Negative for: Pale conjunctiva, Scleral icterus ENT: Moist mucous membranes, No rhinorrhea. Negative for: Nasal congestion, Sinus tenderness Neck: Supple, Nontender, No lymphadenopathy, No JVD Cardiovascular: Regular rate, No murmurs, Normal S1, Normal S2, Tachycardia Respiratory: Chest nontender, Wheezing - Expiratory wheezing noted posteriorly, Decreased Air Movement. Negative for: No distress Abdomen: Negative for: Soft, Nontender, Nondistended, Normal bowel sounds Rectal: Deferred Back: Negative for: Nontender, Normal Inspection Extremities: Nontender, No edema Skin: Normal color, No rash Neurological: Alert, Oriented x3, Cranial nerves II-XII grossly intact, Normal Strength, Normal Sensation Psychological: Normal affect Diagnostic/Tx/Re-eval Chest X-Ray - ED: 1 View, Read by ED Physician, No Acute Disease, Chronic Changes, - - X-ray compared to December 28, 2020 is unchanged. Impressions Abdomen/Pelvis CT 01/03/21 18:15 IMPRESSION: 1. Increased stranding within the supraumbilical hernia with compared to prior study. Question strangulation or incarceration. 2. Question perirectal fluid collections not appreciated on the previous study. 3. No other interval change. Electronically Signed: Kar Colvin DO at 20:25 EDT Tel [phone], Service support , Chest X-Ray 01/03/21 18:30 IMPRESSION: No acute cardiopulmonary disease or interval change. Electronically Signed: Kar Colvin DO at 19:06 EDT Tel [phone], Service support , 01/03/21 18:15 Abdomen/Pelvis WITH Contrast [CT] Stat 01/03/21 18:30 Chest 1 View (Portable) [RAD] Stat Laboratory Results 01/03/21 01/03/21 01/03/21 18:00 18:00 18:00 WBC 10.3 RBC 4.00 L Hgb 11.5 L Hct 35.3 L MCV 88.3 MCH 28.8 MCHC 32.6 RDW Std Deviation 52.6 H RDW Coeff of Jacinto 16.1 H Plt Count 381 MPV 10.0 Immature Gran % (Auto) 0.500 Neut % (Auto) 65.3 Lymph % (Auto) 18.1 L [place] % (Auto) 11.2 H Eos % (Auto) 4.5 Baso % (Auto) 0.4 Absolute Neuts (auto) 6.7 Absolute Lymphs (auto) 1.86 Nucleated RBC % 0 PT INR APTT Specimen Type VBG pH VBG pO2 VBG HCO3 VBG Total CO2 VBG O2 Sat (Calc) VBG Base Excess POC Mix VBG pCO2 Pt Tmp O2 Delivery Device Liter Flow Sodium 142 Potassium 2.9 L Chloride 102 Carbon Dioxide 35.0 H Anion Gap 5 BUN 9 Creatinine 0.46 L Estim Creat Clear Calc 40.83 Est GFR (MDRD) Af Amer 169 Est GFR (MDRD) Non-Af 140 BUN/Creatinine Ratio 19.4 Glucose 88 Lactic Acid 1.0 Calcium 8.3 L Total Bilirubin 0.30 AST 11 L ALT 18 Alkaline Phosphatase 53 Troponin I < 0.015 Total Protein 6.4 Albumin 3.0 L Globulin 3.4 Albumin/Globulin Ratio 0.9 01/03/21 01/03/21 18:00 18:58 WBC RBC Hgb Hct MCV MCH MCHC RDW Std Deviation RDW Coeff of Jacinto Plt Count MPV Immature Gran % (Auto) Neut % (Auto) Lymph % (Auto) [place] % (Auto) Eos % (Auto) Baso % (Auto) Absolute Neuts (auto) Absolute Lymphs (auto) Nucleated RBC % PT 13.9 INR 1.1 APTT 30.6 Specimen Type DRAGAN VBG pH 7.45 H VBG pO2 40 VBG HCO3 33 H VBG Total CO2 34 H VBG O2 Sat (Calc) 77 H VBG Base Excess 9 H POC Mix VBG pCO2 Pt Tmp 46.7 O2 Delivery Device Cannula Liter Flow 4.0 Sodium Potassium Chloride Carbon Dioxide Anion Gap BUN Creatinine Estim Creat Clear Calc Est GFR (MDRD) Af Amer Est GFR (MDRD) Non-Af BUN/Creatinine Ratio Glucose Lactic Acid Calcium Total Bilirubin AST ALT Alkaline Phosphatase Troponin I Total Protein Albumin Globulin Albumin/Globulin Ratio - Rhythm Strip Rhythm Strip: Sinus Rhythm Rate: 89 Ectopy: None - EKG Initial EKG Interpretation: Sinus Rhythm - Sinus rhythm with ventricular 91. ID interval is 108 18 ms. Cures duration 84 ms. QT duration 374 ms. Voltage is low. EKG is otherwise unremarkable. - Medical Decision Making With history of COPD chronic respiratory failure and hypoxia ABG was obtained assess acid-base status and oxygen level. Since she is wheezing she was treated with Solu-Medrol, DuoNeb and albuterol. Appropriate blood work was obtained. Case was discussed with surgeon on-call. She requested a CAT scan with p.o. and IV contrast. She was informed that patient has a nonreducible painful hernia. Dr. Dennis was made aware of CAT scan findings. She was told patient did not get pain medicines because she has COPD with hypoxia and concerned this may worsen her hypoxia. She informed that she is on her way to the emergency room to evaluate patient. Disposition is pending her evaluation. - Critical Care Time Critical care time (excluding procedures): 30-74 minutes - Total time 33 minutes which excludes billable procedure for this includes attending history, physical exam, documentation, review of prior records, discussion with surgeon initially and after CT results reveal findings consistent with an incarcerated versus strangulated hernia., Discussing w/Patient &/or Family/Biscuit Maker, Discussing w/Consultants, Arranging Admission or Transfer, Performing Direct Patient Care at Bedside - Care of her hypoxia due to exacerbation COPD. ED Disposition - Plan for ED Patient: Disposition: Acute Care Hospital [facility] Diagnosis: Incarcerated ventral hernia, COPD exacerbation, Hypoxia Referrals: Shayne Winter Chi, MD [Primary Care Provider] -
[2021-01-03] MEDS: Albuterol 2.5 MG/3 ML VIAL.NEB. INHALATION (18:00)
[2021-01-03] MEDS: Ipratropium/Albuterol Sulfate 3 ML AMPUL.NEB INHALATION (18:00)
[2021-01-03] MEDS: MethylPREDNISolone 125 MG/2 ML Vial 60 MG IV (18:12)
--- NOTE | 2021-01-03 18:15 | CT_ITS ---
STUDY: CT ABDOMEN AND PELVIS WITH CONTRAST REASON FOR EXAM: Female, 75 years old. Reducible hernia. RADIATION DOSAGE (If Supplied By Facility): CTDIvol = ( 15.02 ) mGy, DLP = ( 950.56 ) mGycm TECHNIQUE: Transaxial images were obtained from the dome of the diaphragm to the symphysis pubis with oral contrast. Oral and IV Gastrografin and 100mL Isovue-300 was administered. Sagittal and coronal images were reconstructed. Individualized dose optimization techniques were used for this CT. COMPARISON: 12/28/2020. FINDINGS: The visualized lung bases are unremarkable. The visualized portions of the heart are within normal limits. Normal liver. There is non-visualization of the gallbladder, which may be secondary to either contraction or a prior cholecystectomy. Normal spleen. Normal pancreas. Normal bilateral adrenal glands. Normal right kidney. Normal left kidney. Hiatal hernia. The stomach is otherwise grossly normal. Normal small intestine. Normal colon. There is non-visualization of the appendix. There is diffuse atherosclerotic calcification of the abdominal aorta, without a demonstrated aneurysm. Normal inferior vena cava. Normal retroperitoneum. Normal urinary bladder. Unremarkable vaginal cuff. There is no pelvic lymphadenopathy or mass. No free air or free fluid is seen within the peritoneal cavity. There is a fluid collection in the right posterior pelvis adjacent to the rectum which demonstrates mild wall enhancement. There is also questionable fluid collection with air on the left side of the rectum. Both are best seen on image 83 of series 2. There is a supraumbilical ventral hernia containing fat and fluid in a small area of calcification. Abdominal wall is otherwise intact. There are diffuse degenerative changes of the visualized lumbar spine. CT/Abdomen/Pelvis WITH Contrast IMPRESSION: 1. Increased stranding within the supraumbilical hernia with compared to prior study. Question strangulation or incarceration. 2. Question perirectal fluid collections not appreciated on the previous study. 3. No other interval change. Electronically Signed: Kar Colvin DO at 20:25 EDT Tel [phone], Service support ,
[2021-01-03 18:28] LABS: ALB/GLOB Ratio 0.9 RATIO (0.9-2.4); AST(SGOT) 11 U/L (15-37); Alanine Aminotransfer ALT/SGPT 18 U/L (13-56); Alkaline Phosphatase 53 U/L (45-117); Anion Gap 5 (5-15); BUN 9 mg/dL (7-18); BUN/Creat Ratio 19.4 RATIO (10-20); Calcium,Total 8.3 mg/dL (8.5-10.1); Chloride 102 mmol/L (98-107); Creatinine, Serum 0.46 mg/dL (0.55-1.02); EST Glomerular Filtration Rate 140 mL/min (>60); Est Glom Filt Rate - Afr Amer 169 mL/min (>60); Estimated Creatinine Clearance 40.83 ml/min; Globulin 3.4 g/dL (2.2-4.2); Glucose 88 mg/dL (74-106); Potassium 2.9 mmol/L (3.5-5.1); Protein, Total 6.4 g/dL (6.4-8.2); Sodium Level 142 mmol/L (136-145)
--- NOTE | 2021-01-03 18:30 | RAD_ITS ---
STUDY: X-RAY CHEST REASON FOR EXAM: Female, 75 years old. Hypoxia. Treated for colitis and discharged Saturday. Abdominal pain with cramping diarrhea and increased shortness of breath. Cough. TECHNIQUE: Single AP portable view of the chest. COMPARISON: 12/28/2020. FINDINGS: The lungs are clear and expanded. There is no demonstrated pleural abnormality. Normal size heart. Normal mediastinum and jovanny. Normal visualized pulmonary arteries. Normal visualized aortic arch and descending thoracic aorta. No osseous changes. There is no demonstrated abnormality of the visualized soft tissue structures of the upper abdomen. RAD/Chest 1 View (Portable) IMPRESSION: No acute cardiopulmonary disease or interval change. Electronically Signed: Kar Colvin DO at 19:06 EDT Tel [phone], Service support ,
[2021-01-03 19:06] LABS: Blood Gas Specimen Type VEN; O2 Delivery Device Cannula; VBG BASE EXCESS 9 mmol/L (-1.0-3.5); VBG Bicarbonate 33 mmol/L (22-26); VBG PO2 40 mmHg (25-40); VBG SO2 77 % (50-70); VBG TCO2 34 mmol/L (23-33); VBG pCO2 46.7 mmHg (41-51); VBG pH 7.45 (7.32-7.42)
[2021-01-03 19:35] LABS: Absolute Lymphocyte Count 1.86 X10^3/uL (0.83-4.51); Absolute Neutrophil Count 6.7 X10^3/uL (2.0-7.7); Basophil# 0.04 X10^3/uL; Basophil% 0.4 % (0-1); Eosinophil# 0.46 X10^3/uL; Eosinophils% 4.5 % (0-5); Hematocrit 35.3 % (37-47); Hemoglobin 11.5 g/dL (12.0-15.0); Lymphocyte # 1.86 X10^3/ul (4.0); Lymphocyte % 18.1 % (19-41); Mean Corp Hgb Conc 32.6 g/dL (32-36); Mean Corpuscular Hgb 28.8 pg (27.0-32.0); Mean Corpuscular Volume 88.3 fL (81-99); Monocyte# 1.15 X10^3/uL; Monocyte% 11.2 % (0-10); NRBC Flagged by Analyzer 0 % (0-5); Neutrophil # 6.72 X10^3/uL (2.7-7.7); Neutrophil % 65.3 % (47-70); Platelet Count 381 K/mm3 (150-450); RBC Distribution Width CV 16.1 % (11.6-14.6); RBC Distribution Width SD 52.6 fl (35.1-43.9); White Blood Count 10.3 K/mm3 (4.4-11.0)
[2021-01-03 19:38] LABS: International Normalized Ratio 1.1; Prothrombin Time (Protime)PT. 13.9 SECONDS (11.7-14.9)
[2021-01-03 19:39] LABS: Partial Thromboplast Time 30.6 Seconds (24.1-36.2)
--- NOTE | 2021-01-03 22:08 | HP.PCM_ITS ---
History of Present Illness Date of Admission: 01/03/21 The patient is a 75 year old F patient presents to the ER due to abdominal pain. Patient is accompanied by her son. Patient is not the best historian. When asked what brought patient in she complains that she has had pain for about a month and is kind been all over her abdomen but then she will states that she came in due to more epigastric pain tonight. Patient has not received any pain meds in ER. Per her son patient has been having diarrhea as patient's granddaughter and daughter live with her and told him this. Patient currently denies diarrhea recently states she had in the past. In the room, she denies any bowel movement or flatus recently. Patient denies any nausea or vomiting. Patient did states she was thirsty and hungry. Patient states that when he tried to push back in the hernia her pain is a 13/10 however when she is just sitting here or even with movement patient states she has no pain. Patient CT abdomen pelvis did show an incisional hernia with increased stranding of the fat in the epigastric region. They also did question whether there could be a fluid collection with an air bubble near the rectum and I think that was there on previous CT. However on my read there seems to be starting that fluid collection on the prior CT on 12/28. CT from 12/28 did show the ventral hernia as well but there is no stranding at that time. Patient does have a normal white blood cell count, shift but on antibiotics?Flagyl, hypokalemia Past Medical History Past Medical History (Chronic Problems): Chronic Problems (Last Reviewed 01/03/21 @ 23:[address] Ric Gamez MD) COPD exacerbation (Chronic) Degenerative disc disease, cervical (Chronic) Tobacco abuse (Chronic) RLS (restless legs syndrome) (Chronic) History of chronic respiratory failure (Chronic) HLD (hyperlipidemia) (Chronic) GERD (gastroesophageal reflux disease) (Chronic) COPD (chronic obstructive pulmonary disease) (Chronic) Medical History: Medical History (Last Reviewed 01/03/21 @ 23:[address] Ric Gamez MD) Bleeding disorder D69.9 Gout M10.9 High cholesterol E78.00 Hx of gallstones Z87.19 Neuropathy G62.9 Osteoarthritis M19.90 cataracts Allergies bupropion HCl [From Wellbutrin] Allergy (Verified 01/03/21 17:28) Anaphylaxis only if doesnt take her brand from home cephalexin monohydrate [From Keflex] Allergy (Verified 01/03/21 17:28) Anaphylaxis levofloxacin Allergy (Verified 01/03/21 17:28) Anaphylaxis Penicillins [PCN] Allergy (Verified 01/03/21 17:28) Anaphylaxis Home Medications: Ambulatory Orders Medication Instructions Recorded Furosemide [Lasix] 40 mg PO DAILY 09/19/16 Gabapentin [Neurontin] 300 mg PO BIDCM 09/19/16 Roflumilast [Daliresp] 500 mcg PO DAILY 09/19/16 Ropinirole HCl [Requip] 0.5 mg PO QHS 09/19/16 Alendronate Sodium [Fosamax] 70 mg PO WE 10/24/18 Famotidine 40 mg PO DAILY 10/24/18 Fluticasone/Vilanterol [Breo 1 puff INHALATION DAILY 10/24/18 Ellipta 200-25 Mcg INH] Ipratropium/Albuterol Sulfate 3 ml INHALATION Q4H.RT 10/24/18 [Duoneb] Albuterol Aerosols 2.5 - 3 ml INHALATION DAILY 11/23/20 Bupropion HCl 150 mg PO BID 11/23/20 Citalopram 20 mg PO QHS 11/23/20 Loratadine 10 mg PO DAILY 11/23/20 Multivitamin 1 tab PO DAILY 11/23/20 Potassium 20 meq PO DAILY 11/23/20 Spiriva 18 mcg INHALATION DAILY 11/23/20 Symbicort 160-4.5 Mcg Inhaler 4.5 mcg INHALATION BID 11/23/20 Vitamin B12 2,500 mcg PO DAILY 11/23/20 Vitamin C 1,000 mg PO DAILY 11/23/20 metroNIDAZOLE [Flagyl] 500 mg PO TID #21 tablet 12/31/20 Surgical History: Surgical History (Last Reviewed 01/03/21 @ 23:[address] Ric Gamez MD) History of cholecystectomy Z90.49 History of hysterectomy Z90.710 Surgical History: appendectomy, cholecystectomy - open, had infection at medial incision, hysterectomy - and bowel surgery due to complications/bleeding from hyst- in 1970s, tonsillectomy, - - Cataract surgery. 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 Ric Gamez MD) Father Colon cancer Heart disease History Items: - - Mother of history w/ lung clot. Paternal Family History: Family History (Last Reviewed 01/03/21 @ 23:[address] Ric Gamez MD) Father Colon cancer Heart disease History Items: COPD - Father w/ COPD, tobacco user., - - Colon cancer. Review of Systems Constitutional: Denies: Anorexia Eyes: Denies: Drainage HEENT: Denies: Difficulty Swallowing Cardiovascular: Denies: Chest Pain Respiratory: Reports: Cough, Shortness of Breath Gastrointestinal: Reports: Abdominal Pain, Constipation, Diarrhea. Denies: Nausea, Vomiting Skin: Denies: Jaundice Psychiatric: Denies: Depression Hematologic/ Lymphatic: Reports: Easy Bleeding VTE Information - Inpt Only VTE Present on Admission: Yes VTE Mechan Device Prophylaxis: SCD's Patient Problems: Active and Suspected Problems (Last Reviewed 01/03/21 @ 23:[address] Ric Gamez MD) Incarcerated ventral hernia (Acute) Hypoxia (Acute) Diverticulitis (Acute) Acute sigmoid colitis (Acute) - Physical Exam Vitals/I&O's: Vital Signs Temp Pulse Resp BP Pulse Ox 99.8 F H 93 18 122/73 H 93 01/03/21 21:15 01/03/21 21:15 01/03/21 21:15 01/03/21 21:15 01/03/21 21:15 Oxygen Flow Rate (L/min) 4 Oxygen Delivery Method Nasal Cannula Weight: 140 lb Body Mass Index (BMI) 24.7 General: Alert, Cooperative, No apparent distress HEENT: Atraumatic Cardiovascular: Regular rate Abdomen: Soft, Non-Distended, Tender - at epigastric- unable to reduced hernia, no PS Extremities: No clubbing, No cyanosis, No edema Neurological: Cranial nerves II-XII grossly intact Psych/Mental Status: Normal Affect Laboratory Results 01/03/21 18:00: Sodium 142, Potassium 2.9 L, Chloride 102, Carbon Dioxide 35.0 H , Anion Gap 5, BUN 9, Creatinine 0.46 L, Estim Creat Clear Calc 40.83, Est GFR (MDRD) Af Amer 169, Est GFR (MDRD) Non-Af 140, BUN/Creatinine Ratio 19.4, G lucose 88, Calcium 8.3 L, Total Bilirubin 0.30, AST 11 L, ALT 18, Alkaline Phosphatase 53, Troponin I < 0.015, Total Protein 6.4, Albumin 3.0 L, Globulin 3.4, Albumin/Globulin Ratio 0.9 01/03/21 18:00: Lactic Acid 1.0 01/03/21 18:00: WBC 10.3, RBC 4.00 L, Hgb 11.5 L, Hct 35.3 L, MCV 88.3, MCH 28.8, MCHC 32.6, RDW Std Deviation 52.6 H, RDW Coeff of Jacinto 16.1 H, Plt Count 381, MPV 10.0, Immature Gran % (Auto) 0.500, Neut % (Auto) 65.3, Lymph % (Auto) 18.1 L, [place] % (Auto) 11.2 H, Eos % (Auto) 4.5, Baso % (Auto) 0.4, Absolute Neuts (auto) 6.7, Absolute Lymphs (auto) 1.86, Nucleated RBC % 0 01/03/21 18:00: PT 13.9, INR 1.1, APTT 30.6 01/03/21 18:58: Specimen Type DRAGAN, VBG pH 7.45 H, VBG pO2 40, VBG HCO3 33 H, VBG Total CO2 34 H, VBG O2 Sat (Calc) 77 H, VBG Base Excess 9 H, POC Mix VBG pCO2 Pt Tmp 46.7, O2 Delivery Device Cannula, Liter Flow 4.0 01/03/21 21:45: Blood Type Cancelled, A1 Antigen Typing Cancelled, Rho(D) Type Cancelled, Antibody Screen Cancelled Assessment/Plan All Active Problems (Last Reviewed 01/03/21 @ 23:[address] Ric Gamez MD) Incarcerated ventral hernia (Acute) Hypoxia (Acute) Diverticulitis (Acute) Acute sigmoid colitis (Acute) 75-year-old female with incarcerated distal hernia with fat with stranding, recent history of diverticulitis, COPD can be on 3 to 4 L at home 1. Patient states she is hungry okay for clears tonight n.p.o. after midnight. We will plan for incisional hernia repair, possible bowel resection plan to try to optimize her medically overnight. Discussed procedure with the patient and her son including risk not limited to bleeding, infection, injury to another organ, need to stay on the ventilator after surgery due to her COPD and anesthesia. Patient no further questions this time. 2. Recent diverticulitis we will continue patient on antibiotics will do IV while in the hospital-Cipro/Flagyl. 3. COPD continue supplemental O2, did discuss with for help with medical management. 4. hypokalemia- replace Corinne Dennis M.D. Pager: [phone] [facility] [address] [place] [address], [address] [place] [address] Office: [phone] Procedure Criteria Procedure Type: Elective COVID Risk Discussion: The surgeon/proceduralist and patient have discussed in detail the risk of exposure to and/or potential harm posed by the COVID-19 virus with having a surgery/procedure at this time versus the risk of delaying the surgery/procedure. It is not possible to know either the risk of delaying the surgery or procedure or chance of getting an infection with perfect accuracy, but a joint decision was made between the patient and the surgeon/proceduralist to proceed at this time with the scheduled surgery/procedure as indicated on the consent form.
--- NOTE | 2021-01-03 22:33 | PCM.CONS.GEN ---
Problem List (1) Incarcerated ventral hernia Status: Acute (2) COPD exacerbation Status: Chronic (3) Hypoxia Status: Acute (4) Diverticulitis Status: Acute (5) Acute sigmoid colitis Status: Acute (6) Degenerative disc disease, cervical Status: Chronic (7) Tobacco abuse Status: Chronic (8) RLS (restless legs syndrome) Status: Chronic (9) History of chronic respiratory failure Status: Chronic (10) HLD (hyperlipidemia) Status: Chronic (11) GERD (gastroesophageal reflux disease) Status: Chronic (12) COPD (chronic obstructive pulmonary disease) Status: Chronic Reason for Consult Date of Consultation: 01/03/21 Reason for Consultation: Medical management History of Present Illness: Internal medicine has been consulted for medical management. The patient is a 75 year old F with a significant history of cholecystectomy and hysterectomy who was recently discharged at our hospital ([facility]) on 01/01/2021 with colitis and diverticulitis presenting with right upper quadrant pain that began about 2 days ago. This is different from her recent pain for which she was diagnosed with colitis and diverticulitis. She described this new right upper quadrant pain as sharp and severe. The pain worsens with pushing the area and the pain improve. There are no ameliorating factors to the pain. The pain is nonradiating. She denies any nausea or vomiting. She is on home Flagyl for diverticulitis/colitis. However she complained there is the Flagyl give her soreness of her mouth. Further, she continues to have pain at her left lower quadrant. Also she has chronic pain at her right lower quadrant. Because patient was hypoxic at the emergency department she was given Solu-Medrol and breathing treatments. Patient has a history of COPD and on as needed oxygen and nightly oxygen. She report that in the last week she has had more shortness of breath and also she has had a productive cough of thick sputum. She reports some wheezing. Her son who was in a vehicle with patient enroute to the ED report that patient has some scant wheezes and some scant cough. Past Medical History Past Medical History (Chronic Problems): Chronic Problems (Last Reviewed 01/03/21 @ 23:[address] Ric Gamez MD) COPD exacerbation (Chronic) Degenerative disc disease, cervical (Chronic) Tobacco abuse (Chronic) RLS (restless legs syndrome) (Chronic) History of chronic respiratory failure (Chronic) HLD (hyperlipidemia) (Chronic) GERD (gastroesophageal reflux disease) (Chronic) COPD (chronic obstructive pulmonary disease) (Chronic) Medical History: Medical History (Last Reviewed 01/03/21 @ 23:[address] Ric Gamez MD) Bleeding disorder D69.9 Gout M10.9 High cholesterol E78.00 Hx of gallstones Z87.19 Neuropathy G62.9 Osteoarthritis M19.90 cataracts Allergies bupropion HCl [From Wellbutrin] Allergy (Verified 01/03/21 17:28) Anaphylaxis only if doesnt take her brand from home cephalexin monohydrate [From Keflex] Allergy (Verified 01/03/21 17:28) Anaphylaxis levofloxacin Allergy (Verified 01/03/21 17:28) Anaphylaxis Penicillins [PCN] Allergy (Verified 01/03/21 17:28) Anaphylaxis Home Medications: Ambulatory Orders Medication Instructions Recorded Furosemide [Lasix] 40 mg PO DAILY 09/19/16 Gabapentin [Neurontin] 300 mg PO BIDCM 09/19/16 Roflumilast [Daliresp] 500 mcg PO DAILY 09/19/16 Ropinirole HCl [Requip] 0.5 mg PO QHS 09/19/16 Alendronate Sodium [Fosamax] 70 mg PO WE 10/24/18 Famotidine 40 mg PO DAILY 10/24/18 Fluticasone/Vilanterol [Breo 1 puff INHALATION DAILY 10/24/18 Ellipta 200-25 Mcg INH] Ipratropium/Albuterol Sulfate 3 ml INHALATION Q4H.RT 10/24/18 [Duoneb] Albuterol Aerosols 2.5 - 3 ml INHALATION DAILY 11/23/20 Bupropion HCl 150 mg PO BID 11/23/20 Citalopram 20 mg PO QHS 11/23/20 Loratadine 10 mg PO DAILY 11/23/20 Multivitamin 1 tab PO DAILY 11/23/20 Potassium 20 meq PO DAILY 11/23/20 Spiriva 18 mcg INHALATION DAILY 11/23/20 Symbicort 160-4.5 Mcg Inhaler 4.5 mcg INHALATION BID 11/23/20 Vitamin B12 2,500 mcg PO DAILY 11/23/20 Vitamin C 1,000 mg PO DAILY 11/23/20 metroNIDAZOLE [Flagyl] 500 mg PO TID #21 tablet 04/10/21 Surgical History: Surgical History (Last Reviewed 01/03/21 @ 23:[address] Ric Gamez MD) History of cholecystectomy Z90.49 History of hysterectomy Z90.710 Surgical History: appendectomy, cholecystectomy - open, had infection at medial incision, hysterectomy - and bowel surgery due to complications/bleeding from hyst- in 1970s, tonsillectomy, - - Cataract surgery. 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 Ric Gamez MD) Father Colon cancer Heart disease History Items: - - Mother of history w/ lung clot. Paternal Family History: Family History (Last Reviewed 01/03/21 @ 23:[address] Ric Gamez MD) Father Colon cancer Heart disease History Items: COPD - Father w/ COPD, tobacco user., - - Colon cancer. Review of Systems Constitutional: Denies: Chills, Fever, Weight Change HEENT: Denies: Head Aches, Sinus Congestion, Sinus Drainage Cardiovascular: Denies: Chest Pain, Palpitations Respiratory: Reports: Cough, Shortness of Breath, Wheezing. Denies: Sputum production Gastrointestinal: Reports: Abdominal Pain. Denies: Nausea, Vomiting Genitourinary: Denies: Dysuria Musculoskeletal: Denies: Joint Pain, Joint Tenderness Skin: Denies: Rash, Wounds Neurological: Denies: Numbness, Tingling, Focal weakness Psychiatric: Denies: Anxiety, Depression, Homicidal Ideations, Suicidal Ideations Hematologic/ Lymphatic: Denies: Easy Bruising, Easy Bleeding Patient Problems: Active and Suspected Problems (Last Reviewed 01/03/21 @ 23:[address] Ric Gamez MD) Incarcerated ventral hernia (Acute) Hypoxia (Acute) Diverticulitis (Acute) Acute sigmoid colitis (Acute) - Physical Exam Vitals/I&O's: Vital Signs Temp Pulse Resp BP Pulse Ox 99.8 F H 93 18 122/73 H 93 01/03/21 22:19 01/03/21 22:19 01/03/21 22:19 01/03/21 22:19 01/03/21 22:19 Oxygen Flow Rate (L/min) 4 Oxygen Delivery Method Nasal Cannula Weight: 63.503 kg Body Mass Index (BMI) 24.7 General: Alert, Oriented x3, Cooperative HEENT: Atraumatic, PERRLA, EOMI, Normocephalic Neck: Supple, No JVD, Negative Carotid Bruits Lungs: Clear to auscultation, Normal air movement Cardiovascular: Regular rate, No murmurs Abdomen: Bowel Sounds Present, Soft, Non Tender, - Extremities: No edema, Capillary Refill Less than 3 Seconds Skin: No rashes, No breakdown Musculoskeletal: No Tenderness to Palpation of Joints or Extremities Neurological: Cranial nerves II-XII grossly intact Psych/Mental Status: Normal Affect, Appropriate Laboratory Results 01/03/21 18:00: Sodium 142, Potassium 2.9 L, Chloride 102, Carbon Dioxide 35.0 H, Anion Gap 5, BUN 9, Creatinine 0.46 L, Estim Creat Clear Calc 40.83, Est GFR (MDRD) Af Amer 169, Est GFR (MDRD) Non-Af 140, BUN/Creatinine Ratio 19.4, Glucose 88, Calcium 8.3 L, Total Bilirubin 0.30, AST 11 L, ALT 18, Alkaline Phosphatase 53, Troponin I < 0.015, Total Protein 6.4, Albumin 3.0 L, Globulin 3.4, Albumin/Globulin Ratio 0.9 01/03/21 18:00: Lactic Acid 1.0 01/03/21 18:00: WBC 10.3, RBC 4.00 L, Hgb 11.5 L, Hct 35.3 L, MCV 88.3, MCH 28.8, MCHC 32.6, RDW Std Deviation 52.6 H, RDW Coeff of Jacinto 16.1 H, Plt Count 381, MPV 10.0, Immature Gran % (Auto) 0.500, Neut % (Auto) 65.3, Lymph % (Auto) 18.1 L, [place] % (Auto) 11.2 H, Eos % (Auto) 4.5, Baso % (Auto) 0.4, Absolute Neuts (auto) 6.7, Absolute Lymphs (auto) 1.86, Nucleated RBC % 0 01/03/21 18:00: PT 13.9, INR 1.1, APTT 30.6 01/03/21 18:58: Specimen Type DRAGAN, VBG pH 7.45 H, VBG pO2 40, VBG HCO3 33 H, VBG Total CO2 34 H, VBG O2 Sat (Calc) 77 H, VBG Base Excess 9 H, POC Mix VBG pCO2 Pt Tmp 46.7, O2 Delivery Device Cannula, Liter Flow 4.0 01/03/21 21:45: Blood Type Cancelled, A1 Antigen Typing Cancelled, Rho(D) Type Cancelled, Antibody Screen Cancelled 01/03/21 22:16: Blood Type Pending, Antibody Screen Pending Assessment/Plan All Active Problems (Last Reviewed 01/03/21 @ 23:[address] Ric Gamez MD) Incarcerated ventral hernia (Acute) Hypoxia (Acute) Diverticulitis (Acute) Acute sigmoid colitis (Acute) The patient is a 75 year old F with a significant history of cholecystectomy and hysterectomy who was recently discharged at a hospital on 01/01/2021 with sigmoid colitis and diverticulitis presenting with right upper quadrant pain; and now found to have an incarcerated hernia; and with mild COPD extubation. Incarcerated hernia Kept n.p.o. by general surgery. Per general surgery patient will have an operation. Started on clear angles by general surgery. Hold home Lasix at this time. ACS NSQIP surgical risk calculator: With shortness of breath and; COPD on home oxygen use classified as severe disease patient cardiac complication is 0.5% with average risk of 0.4%. Also risk as she was complication is 6.7% with average risk of 4.6%. Risk of any complication is 7.3% with average risk of 5.2. Admit to [facility] on telemetry. Acute on chronic hypoxemic respiratory insufficiency/COPD exacerbation Mild Received Solu-Medrol 60 mg IV x1 at the emergency department. Also receive DuoNeb and albuterol emergency department. Patient uses oxygen at home as needed and every night. Continue patient on oxygen supplementation to maintain oxygen saturation of more than 92% DuoNeb scheduled every 4 hours while awake. As needed albuterol ordered. Pulmicort inhalation twice daily. We will avoid systemic steroids at this time since patient was not wheezing on examination. Daliresp continued Hypokalemia Potassium was 2.9. Replaced by general surgery. Trend. Hold home Lasix. Hold home potassium. Check magnesium. Acute diverticulitis/colitis On home p.o. metronidazole. While n.p.o. has been changed to IV by general surgery. Metronidazole continued. GERD On home p.o. Pepcid. While n.p.o. we will change to IV Protonix Depression/anxiety Citalopram continued Neuropathy Gabapentin continued DVT prophylaxis SCD Inpatient E&M: 98387 Subs Hosp L2
[2021-01-04] VITALS (13 sets, daily range): BP systolic 113–123; BP diastolic 58–77; PULSE 72–104; RESP 14–20; TEMP 36.6–36.9; O2SAT 88–98
[2021-01-04] MEDS: Potassium Chloride Oral Tablet 20 MEQ 60 MEQ PO (00:21)
[2021-01-04] MEDS: Lactated Ringers 1,000 ML 100 ML IV ×2 (00:22→14:23)
[2021-01-04] MEDS: metroNIDAZOLE 500 MG/100 ML BAG 100 MG IV ×3 (00:22→14:26)
[2021-01-04] MEDS: Calcium Carbonate 500 MG Tablet PO (00:36)
[2021-01-04] MEDS: Ondansetron 4 MG/2 ML Vial IV (06:20)
[2021-01-04] MEDS: 0.9% Saline Lock 10 ML Syringe IV (06:20)
[2021-01-04 06:44] LABS: Absolute Lymphocyte Count 1.14 X10^3/uL (0.83-4.51); Basophil# 0.02 X10^3/uL; Basophil% 0.3 % (0-1); Eosinophil# 0.01 X10^3/uL; Eosinophils% 0.1 % (0-5); Hematocrit 35.6 % (37-47); Hemoglobin 11.9 g/dL (12.0-15.0); Lymphocyte # 1.14 X10^3/ul (4.0); Lymphocyte % 14.7 % (19-41); Mean Corp Hgb Conc 33.4 g/dL (32-36); Mean Corpuscular Hgb 29.2 pg (27.0-32.0); Mean Corpuscular Volume 87.5 fL (81-99); Mean Platelet Vol. 9.9 fl (6.2-12.0); Monocyte# 0.61 X10^3/uL; Monocyte% 7.9 % (0-10); NRBC Flagged by Analyzer 0 % (0-5); Neutrophil # 5.95 X10^3/uL (2.7-7.7); Neutrophil % 76.5 % (47-70); Platelet Count 368 K/mm3 (150-450); RBC Distribution Width CV 15.9 % (11.6-14.6); RBC Distribution Width SD 50.7 fl (35.1-43.9); Red Blood Count 4.07 M/mm3 (4.2-5.4); White Blood Count 7.8 K/mm3 (4.4-11.0)
[2021-01-04 07:08] LABS: Anion Gap 4 (5-15); BUN 9 mg/dL (7-18); BUN/Creat Ratio 21.1 RATIO (10-20); Calcium,Total 8.6 mg/dL (8.5-10.1); Chloride 104 mmol/L (98-107); Creatinine, Serum 0.43 mg/dL (0.55-1.02); EST Glomerular Filtration Rate 154 mL/min (>60); Est Glom Filt Rate - Afr Amer 186 mL/min (>60); Estimated Creatinine Clearance 40.83 ml/min; Glucose 109 mg/dL (74-106); Potassium 3.5 mmol/L (3.5-5.1); Sodium Level 142 mmol/L (136-145)
--- NOTE | 2021-01-04 07:14 | PN_ITS ---
Patient Problems: Active and Suspected Problems (Last Reviewed 01/03/21 @ 23:[address] Ric Gamez MD) Incarcerated ventral hernia (Acute) Hypoxia (Acute) Diverticulitis (Acute) Acute sigmoid colitis (Acute) Reason for Visit: Follow-up on incarcerated hernia/hypokalemia/acute diverticulitis Subjective: Patient was seen and examined. She states she feels tired. She denied nausea, vomiting. No acute events overnight. Objective: Physical exam: General: Alert, Oriented x3, Cooperative, on 3L oxygen HEENT: Atraumatic, PERRLA, EOMI, Normocephalic Neck: Supple, No JVD, Negative Carotid Bruits Lungs: Clear to auscultation, Normal air movement Cardiovascular: Regular rate, No murmurs Abdomen: Bowel Sounds Present, Soft, Non Tender on exam Extremities: No edema, Capillary Refill Less than 3 Seconds Skin: No rashes, No breakdown Musculoskeletal: No Tenderness to Palpation of Joints or Extremities Neurological: Cranial nerves II-XII grossly intact Psych/Mental Status: Normal Affect, Appropriate Vitals/I&O's: Vital Signs Temp Pulse Resp BP Pulse Ox 98.5 F 83 20 H 123/77 H 94 01/04/21 02:00 01/04/21 05:53 01/04/21 02:00 01/04/21 02:00 01/04/21 02:00 Oxygen Flow Rate (L/min) 2 Oxygen Delivery Method Nasal Cannula Weight: 69.3 kg Body Mass Index (BMI) 27.0 Intake and Output for Last 24 Hours 01/02/21 01/03/21 01/04/21 23:59 23:59 23:59 Intake Total 688.33 / 688.33 Balance 688.33 / 688.33 Microbiology Past 72 Hours 01/03/21 22:30 Mucosa - Nose SARS-CoV-2 Antigen (Rapid) - Final Laboratory Results 01/03/21 18:00: Sodium 142, Potassium 2.9 L, Chloride 102, Carbon Dioxide 35.0 H , Anion Gap 5, BUN 9, Creatinine 0.46 L, Estim Creat Clear Calc 40.83, Est GFR (MDRD) Af Amer 169, Est GFR (MDRD) Non-Af 140, BUN/Creatinine Ratio 19.4, Glucose 88, Calcium 8.3 L, Total Bilirubin 0.30, AST 11 L, ALT 18, Alkaline Phosphatase 53, Troponin I < 0.015, Total Protein 6.4, Albumin 3.0 L, Globulin 3.4, Albumin/Globulin Ratio 0.9 01/03/21 18:00: Lactic Acid 1.0 01/03/21 18:00: WBC 10.3, RBC 4.00 L, Hgb 11.5 L, Hct 35.3 L, MCV 88.3, MCH 28.8, MCHC 32.6, RDW Std Deviation 52.6 H, RDW Coeff of Jacinto 16.1 H, Plt Count 381, MPV 10.0, Immature Gran % (Auto) 0.500, Neut % (Auto) 65.3, Lymph % (Auto) 18.1 L, [place] % (Auto) 11.2 H, Eos % (Auto) 4.5, Baso % (Auto) 0.4, Absolute Neuts (auto) 6.7, Absolute Lymphs (auto) 1.86, Nucleated RBC % 0 01/03/21 18:00: PT 13.9, INR 1.1, APTT 30.6 01/03/21 18:58: Specimen Type DRAGAN, VBG pH 7.45 H, VBG pO2 40, VBG HCO3 33 H, VBG Total CO2 34 H, VBG O2 Sat (Calc) 77 H, VBG Base Excess 9 H, POC Mix VBG pCO2 Pt Tmp 46.7, O2 Delivery Device Cannula, Liter Flow 4.0 01/03/21 21:45: Blood Type Cancelled, A1 Antigen Typing Cancelled, Rho(D) Type Cancelled, Antibody Screen Cancelled 01/03/21 22:16: Blood Type A POSITIVE, Antibody Screen NEGATIVE 01/04/21 06:05: WBC 7.8, RBC 4.07 L, Hgb 11.9 L, Hct 35.6 L, MCV 87.5, MCH 29.2, MCHC 33.4, RDW Std Deviation 50.7 H, RDW Coeff of Jacinto 15.9 H, Plt Count 368, MPV 9.9, Immature Gran % (Auto) 0.500, Neut % (Auto) 76.5 H, Lymph % (Auto) 14.7 L, [place] % (Auto) 7.9, Eos % (Auto) 0.1, Baso % (Auto) 0.3, Absolute Neuts (auto) 6.0, Absolute Lymphs (auto) 1.14, Nucleated RBC % 0 01/04/21 06:05: Sodium 142, Potassium 3.5, Chloride 104, Carbon Dioxide 34.0 H, Anion Gap 4 L, BUN 9, Creatinine 0.43 L, Estim Creat Clear Calc 40.83, Est GFR (MDRD) Af Amer 186, Est GFR (MDRD) Non-Af 154, BUN/Creatinine Ratio 21.1 H, Glucose 109 H, Calcium 8.6, Magnesium 2.0 Current Medications Acetaminophen (Acetaminophen 325 Mg Tablet) 650 mg PO Q6H PRN PRN PRN Reason: PAIN SCORE 1-10 Albuterol Sulfate (Albuterol 2.5 Mg/3 Ml Vial.Neb.) 2.5 mg INHALATION Q2H PRN PRN PRN Reason: SOB/WHEEZING Albuterol/Ipratropium (Ipratropium/Albuterol Sulfate 3 Ml Ampul.Neb) 3 ml INHALATION Q4HWA.RT RAUL Bupropion HCl (Bupropion (Sr) 150 Mg Tablet.Sa) 150 mg PO BID RAUL Calcium Carbonate (Calcium Carbonate 500 Mg Tablet) 500 mg PO Q6H PRN PRN PRN Reason: heartburn Last Admin: 01/04/21 00:36 Dose: 500 mg Documented by: Citalopram Hydrobromide (Citalopram 20 Mg Tablet) 20 mg PO QHS RAUL Gabapentin (Gabapentin 300 Mg Capsule) 300 mg PO BIDCM [facility] Lactated Ringer's () 1,000 mls @ 100 mls/hr IV .Q10H [facility] Last Infusion: 01/04/21 06:15 Dose: 0 mls/hr Documented by: Metronidazole (Flagyl) 500 mg in 100 mls @ 100 mls/hr IV Q8 [facility] Last Admin: 01/04/21 06:15 Dose: 100 mls/hr Documented by: Famotidine 20 mg/ Sodium (Chloride) 10 mls @ 300 mls/hr IV Q12 [facility] Loratadine (Loratadine 10 Mg Tablet) 10 mg PO DAILY [facility] Morphine Sulfate (Morphine 2 Mg/Ml Syringe) 2 - 4 mg IV Q2H PRN PRN PRN Reason: PAIN Morphine Sulfate (Morphine 4 Mg/Ml Syringe) 2 - 4 mg IV Q2H PRN PRN PRN Reason: PAIN Non-Formulary Medication (Roflumilast [Daliresp]) 500 mcg PO DAILY RAUL Ondansetron HCl (Ondansetron 4 Mg/2 Ml Vial) 4 mg IV Q8H PRN PRN PRN Reason: NAUSEA Last Admin: 01/04/21 06:20 Dose: 4 mg Documented by: Potassium Chloride (Potassium Chloride Oral Tablet 20 Meq) 20 meq PO DAILY RAUL Pramipexole Dihydrochloride (Pramipexole Di-Hcl 0.25 Mg Tablet) 0.25 mg PO QHS RAUL Sodium Chloride (0.9% Saline Lock 10 Ml Syringe) 10 - 40 ml IV UD PRN PRN Reason: SALINE FLUSH Last Admin: 01/04/21 06:20 Dose: 10 ml Documented by: STROKE Vital Signs/Narrative: Vital Signs Pulse 01/04/21 05:53 83 Medical Necessity - Tobacco Use Smoking Status: Current some day smoker Tobacco Use: Cigars Assessment/Plan All Active Problems (Last Reviewed 01/03/21 @ 23:[address] Ric Gamez MD) Incarcerated ventral hernia (Acute) Hypoxia (Acute) Diverticulitis (Acute) Acute sigmoid colitis (Acute) 1. Acute incarcerated incisional hernia, with fat stranding, going for surgery today with general surgery Will continue to monitor per general surgery recommendations 2. Recent diverticulitis, on Flagyl 3. Hypokalemia, resolved, recheck in am 4. Chronic hypoxic respiratory secondary to COPD, currently on 3L oxygen 5. GERD, on PPI 6. Anxiety/depression, stable, continue on Celexa, bupropion 7. DVT PPx- SCDs Inpatient E&M: 07015 Subs Hosp L2
[2021-01-04] MEDS: Ipratropium/Albuterol Sulfate 3 ML AMPUL.NEB INHALATION ×2 (07:29→15:05)
--- NOTE | 2021-01-04 09:09 | CASEMGMT ---
Social Work Note SW received call from pt's CM Nata Cao. SW updated Nata on pt's admission to [facility]. Allyson Trinh MEN'S GARMENT FITTER, GEAR CODING MACHINE OPERATOR
--- NOTE | 2021-01-04 09:35 | PCM.PN.SRG ---
Patient Problems: Active and Suspected Problems (Last Reviewed 01/03/21 @ 23:[address] Ric Gamez MD) Incarcerated ventral hernia (Acute) Hypoxia (Acute) Diverticulitis (Acute) Acute sigmoid colitis (Acute) Subjective: Patient states abdomen feels better. - Physical Exam Vitals/I&O's: Vital Signs Temp Pulse Resp BP Pulse Ox 98.5 F 72 20 H 123/77 H 94 01/04/21 02:00 01/04/21 09:17 01/04/21 07:30 01/04/21 02:00 01/04/21 02:00 Oxygen Flow Rate (L/min) 2 Oxygen Delivery Method Nasal Cannula Weight: 152 lb 12.485 oz Body Mass Index (BMI) 27.0 Intake and Output for Last 24 Hours 01/02/21 01/03/21 01/04/21 23:59 23:59 23:59 Intake Total 688.33 / 688.33 Balance 688.33 / 688.33 General: Alert, Cooperative, No apparent distress Lungs: Normal air movement Cardiovascular: Regular rate Abdomen: Soft, Non-Distended, Tender - If trying to reduce epigastric hernia, incarcerated, Hernia - Epigastric, Incarcerated Microbiology Past 72 Hours 01/03/21 22:30 Mucosa - Nose SARS-CoV-2 Antigen (Rapid) - Final Laboratory Results 01/03/21 18:00: Sodium 142, Potassium 2.9 L, Chloride 102, Carbon Dioxide 35.0 H, Anion Gap 5, BUN 9, Creatinine 0.46 L, Estim Creat Clear Calc 40.83, Est GFR (MDRD) Af Amer 169, Est GFR (MDRD) Non-Af 140, BUN/Creatinine Ratio 19.4, Glucose 88, Calcium 8.3 L, Total Bilirubin 0.30, AST 11 L, ALT 18, Alkaline Phosphatase 53, Troponin I < 0.015, Total Protein 6.4, Albumin 3.0 L, Globulin 3.4, Albumin/Globulin Ratio 0.9 01/03/21 18:00: Lactic Acid 1.0 01/03/21 18:00: WBC 10.3, RBC 4.00 L, Hgb 11.5 L, Hct 35.3 L, MCV 88.3, MCH 28.8, MCHC 32.6, RDW Std Deviation 52.6 H, RDW Coeff of Jacinto 16.1 H, Plt Count 381, MPV 10.0, Immature Gran % (Auto) 0.500, Neut % (Auto) 65.3, Lymph % (Auto) 18.1 L, [place] % (Auto) 11.2 H, Eos % (Auto) 4.5, Baso % (Auto) 0.4, Absolute Neuts (auto) 6.7, Absolute Lymphs (auto) 1.86, Nucleated RBC % 0 01/03/21 18:00: PT 13.9, INR 1.1, APTT 30.6 01/03/21 18:58: Specimen Type DRAGAN, VBG pH 7.45 H, VBG pO2 40, VBG HCO3 33 H, VBG Total CO2 34 H, VBG O2 Sat (Calc) 77 H, VBG Base Excess 9 H, POC Mix VBG pCO2 Pt Tmp 46.7, O2 Delivery Device Cannula, Liter Flow 4.0 01/03/21 21:45: Blood Type Cancelled, A1 Antigen Typing Cancelled, Rho(D) Type Cancelled, Antibody Screen Cancelled 01/03/21 22:16: Blood Type A POSITIVE, Antibody Screen NEGATIVE 01/04/21 06:05: WBC 7.8, RBC 4.07 L, Hgb 11.9 L, Hct 35.6 L, MCV 87.5, MCH 29.2, MCHC 33.4, RDW Std Deviation 50.7 H, RDW Coeff of Jacinto 15.9 H, Plt Count 368, MPV 9.9, Immature Gran % (Auto) 0.500, Neut % (Auto) 76.5 H, Lymph % (Auto) 14.7 L, [place] % (Auto) 7.9, Eos % (Auto) 0.1, Baso % (Auto) 0.3, Absolute Neuts (auto) 6.0, Absolute Lymphs (auto) 1.14, Nucleated RBC % 0 01/04/21 06:05: Sodium 142, Potassium 3.5, Chloride 104, Carbon Dioxide 34.0 H, Anion Gap 4 L, BUN 9, Creatinine 0.43 L, Estim Creat Clear Calc 40.83, Est GFR (MDRD) Af Amer 186, Est GFR (MDRD) Non-Af 154, BUN/Creatinine Ratio 21.1 H, Glucose 109 H, Calcium 8.6, Magnesium 2.0 Current Medications Acetaminophen (Acetaminophen 325 Mg Tablet) 650 mg PO Q6H PRN PRN PRN Reason: PAIN SCORE 1-10 Albuterol Sulfate (Albuterol 2.5 Mg/3 Ml Vial.Neb.) 2.5 mg INHALATION Q2H PRN PRN PRN Reason: SOB/WHEEZING Albuterol/Ipratropium (Ipratropium/Albuterol Sulfate 3 Ml Ampul.Neb) 3 ml INHALATION Q4HWA.RT [facility] Last Admin: 01/04/21 07:29 Dose: 3 ml Documented by: Bupropion HCl (Bupropion (Sr) 150 Mg Tablet.Sa) 150 mg PO BID [facility] Calcium Carbonate (Calcium Carbonate 500 Mg Tablet) 500 mg PO Q6H PRN PRN PRN Reason: heartburn Last Admin: 01/04/21 00:36 Dose: 500 mg Documented by: Citalopram Hydrobromide (Citalopram 20 Mg Tablet) 20 mg PO QHS [facility] Gabapentin (Gabapentin 300 Mg Capsule) 300 mg PO BIDCM [facility] Last Admin: 01/04/21 09:14 Dose: Not Given Documented by: Lactated Ringer's () 1,000 mls @ 100 mls/hr IV .Q10H [facility] Last Infusion: 01/04/21 06:15 Dose: 0 mls/hr Documented by: Metronidazole (Flagyl) 500 mg in 100 mls @ 100 mls/hr IV Q8 [facility] Last Admin: 01/04/21 06:15 Dose: 100 mls/hr Documented by: Famotidine 20 mg/ Sodium (Chloride) 10 mls @ 300 mls/hr IV Q12 [facility] Pantoprazole Sodium 40 mg/ (Sodium Chloride) 110 mls @ 330 mls/hr IV Q24 [facility] Loratadine (Loratadine 10 Mg Tablet) 10 mg PO DAILY [facility] Morphine Sulfate (Morphine 2 Mg/Ml Syringe) 2 - 4 mg IV Q2H PRN PRN PRN Reason: PAIN Morphine Sulfate (Morphine 4 Mg/Ml Syringe) 2 - 4 mg IV Q2H PRN PRN PRN Reason: PAIN Non-Formulary Medication (Roflumilast [Daliresp]) 500 mcg PO DAILY [facility] Ondansetron HCl (Ondansetron 4 Mg/2 Ml Vial) 4 mg IV Q8H PRN PRN PRN Reason: NAUSEA Last Admin: 01/04/21 06:20 Dose: 4 mg Documented by: Potassium Chloride (Potassium Chloride Oral Tablet 20 Meq) 20 meq PO DAILY RAUL Pramipexole Dihydrochloride (Pramipexole Di-Hcl 0.25 Mg Tablet) 0.25 mg PO QHS RAUL Sodium Chloride (0.9% Saline Lock 10 Ml Syringe) 10 - 40 ml IV UD PRN PRN Reason: SALINE FLUSH Last Admin: 01/04/21 06:20 Dose: 10 ml Documented by: Medical Necessity - Tobacco Use Smoking Status: Current some day smoker Tobacco Use: Cigars Assessment/Plan All Active Problems (Last Reviewed 01/03/21 @ 23:[address] Ric Gamez MD) Incarcerated ventral hernia (Acute) Hypoxia (Acute) Diverticulitis (Acute) Acute sigmoid colitis (Acute) 75-year-old female with incarcerated distal hernia with fat with stranding, recent history of diverticulitis, COPD can be on 3 to 4 L at home 1. Plan for incisional hernia repair this morning about 1145. Patient no further questions this time.Did discuss with patient previously no plans of placing mesh. 2. Recent diverticulitis we will continue patient on antibiotics will do IV while in the hospital-Flagyl. 3. COPD continue supplemental O2, Appreciate hospice help with medical management. 4. hypokalemia- replace PPI Corinne Dennis M.D. Pager: [phone] [facility] [address] [place] [address], Outpatient Pavilion, [address] [place] [id number] Office: [phone]
--- NOTE | 2021-01-04 11:45 | HERN_PTH ---
PATIENT: LISETTE HERNANDEZ LOC: [facility] U#:[id number] AGE/SX: 75/F ROOM: MS308 RE01/03/[address]: Dr. Mary Jay MD : 1945 BED: 1 DIS: 01/04/2021 SPEC #: [id number] RECD: 01/04/21 15:15 STATUS: CURT RERoxanne #: [id number] STELLA: 01/04/21 11:[address]: Corinne Dennis DEPT: SURGICAL PATHOLOGY RECD BY: Maria Elena Farmer ENTERED: 01/05/21 07:35 SP TYPE: Hernia OTHR DR: MD Dr. Ric Panchal MD Dr. Tai Chi Kwok, MD Dr. Tamera Robotham, MD Tissues: HERNIA Procedures: Surgery Specimen Level II Comments: @ Ordering doctor for GAGAN edited from to @ by BARBARA at 01/05/21 1001 @ Submitting doctor edited from to @ by RGOOD at 01/05/21 1001 HEADER OPERATION: Incisional hernia repair PRE-OP DIAGNOSIS: Incarcerated ventral hernia TISSUE SUBMITTED: Hernia sac MICROSCOPIC DIAGNOSIS Hernia sac: A piece of fibroadipose and fibroconnective tissue, consistent with hernia sac with marked acute inflammation, fibrinous exudation and moderate chronic inflammation, clinically incisional hernia repair. DEBI:sherif 01/06/2021 MICROSCOPIC DESCRIPTION Slides are reviewed. GROSS DESCRIPTION Received in fixative is one container labeled with the patient's name and designated hernia sac. The specimen consists of a piece of wolff-yellow adipose tissue consistent with hernia sac measuring 4 cm in length and 4 cm in diameter. Also present in the container is a detached piece of soft tissue measuring 1 x 0.3 x 0.1 cm. No mass lesion is identified. Caul Dresser sections are submitted in one cassette. / DEBI:sherif 01/05/21 TC:5 CPT: 45674
--- NOTE | 2021-01-04 12:25 | NURSING ---
off unit via bed at 1050 for surgery
--- NOTE | 2021-01-04 12:50 | PCM.OPRPT ---
Report of Operation Date of Procedure: 01/04/21 Pre-Operative Diagnosis: incarcerated incisional hernia Post-Operative Diagnosis: same Surgery/Procedure Performed:: repair of incarcerated incisional hernia load test mechanic: Mario Gallo Type of Anesthesia:: Local MAC Anesthesiologist: Felix Wells Special Medications: clindamycin 900 mg IV x 1, on flagyl on floor for recent diverticulitis Specimen's removed: hernia sac Estimated Blood Loss (mL): <10 cc Fluids Replaced: per anesthesia Description of Procedure: Indication: 75-year-old female presented to the ER due to epigastric pain. Patient CT abdomen pelvis showed incarcerated possible strangulated incisional hernia only containing abdominal fat. Repair of incisional hernia was planned. Procedure: Patient was brought into the OR placed prone on the operating table. Timeout was completed verifying correct patient, procedure, site, positioning, special equipment prior to beginning procedure. MAC anesthesia was induced. Abdomen was prepped and draped in usual sterile fashion. Ultrasound used to localize the hernia and also place 0.5% Marcaine with epinephrine for local anesthesia a total of 20 cc. Incision was made in the upper midline overlying the site of incisional hernia with a 10 blade scalpel. This was deepened with electrocautery. The fascia around the hernia site was cleared. There was one main site which was about 1.5 cm in diameter however there is another small about 0.5 cm hernia superior to this. The 2 hernias were connected using Metzenbaum scissors. Hernia contents were viable intra-abdominal fat which was reduced into the abdomen. Hernia sac was excised and sent to pathology. Hernia defect was closed with 0 Prolene [id number] sutures x2. Wound was irrigated. 3-0 Vicryl sutures were used for subdermal interrupted sutures. Skin was closed with 4-0 Monocryl. Steri-Strips and OpSite were placed. Patient tolerated procedure well. Patient was taken to the postanesthesia care unit in stable condition. - Complications none
[2021-01-04] MEDS: Bupiv/Epi 0.25% 30 ML Vial (12:52)
--- NOTE | 2021-01-04 12:58 | DCINST_ITS ---
Discharge Diet: Light diet - advance as tolerated Discharge Activity: May not drive while taking narcotic pain medications. May shower in (days): 1 Lifting Restrictions: no lifting >20lbs x 2 wks Call your doctor if your incision/area has: Continuous Slow Oozing, Sudden Increased Bleeding, Increased Pain/ Swelling, Increased Redness, Foul Smelling Discharge, Swelling at the incision site Call your doctor if you observe: Fever of 101 or Higher Remove Dressing in (days):: 2 Additional Instructions: Complete your Flagyl prescription that was given previously Allergies/Adverse Reactions: Allergies bupropion HCl [From Wellbutrin] Allergy (Verified 01/03/21 17:28) Anaphylaxis only if doesnt take her brand from home cephalexin monohydrate [From Keflex] Allergy (Verified 01/03/21 17:28) Anaphylaxis levofloxacin Allergy (Verified 01/03/21 17:28) Anaphylaxis Penicillins [PCN] Allergy (Verified 01/03/21 17:28) Anaphylaxis Milk Containing Products Adverse Reaction (Verified 01/03/21 23:29) phlegm Medications to take at Discharge Furosemide [Lasix] 40 mg PO DAILY 09/19/16 Gabapentin [Neurontin] 300 mg PO BIDCM 09/19/16 Roflumilast [Daliresp] 500 mcg PO DAILY 09/19/16 Ropinirole HCl [Requip] 0.5 mg PO QHS 09/19/16 Alendronate Sodium [Fosamax] 70 mg PO WE 10/24/18 Famotidine 40 mg PO DAILY 10/24/18 Fluticasone/Vilanterol [Breo Ellipta 200-25 Mcg INH] 1 puff INHALATION DAILY 10/24/18 Ipratropium/Albuterol Sulfate [Duoneb] 3 ml INHALATION Q4H.RT 10/24/18 Albuterol Aerosols 2.5 - 3 ml INHALATION DAILY 11/23/20 Bupropion HCl 150 mg PO BID 11/23/20 Citalopram 20 mg PO QHS 11/23/20 Loratadine 10 mg PO DAILY 11/23/20 Multivitamin 1 tab PO DAILY 11/23/20 Potassium 20 meq PO DAILY 11/23/20 Spiriva 18 mcg INHALATION DAILY 11/23/20 Symbicort 160-4.5 Mcg Inhaler 4.5 mcg INHALATION BID 11/23/20 Vitamin B12 2,500 mcg PO DAILY 11/23/20 Vitamin C 1,000 mg PO DAILY 11/23/20 metroNIDAZOLE [Flagyl] 500 mg PO TID #21 tablet 12/31/20 Oxycodone HCl/Acetaminophen [Percocet 5/325] 1 tablet PO Q6H PRN PRN 3 Days #10 tablet 01/04/21 Primary Care Physician: Shayne Winter Chi, MD [Primary Care Provider] - Test Results: Test results from this visit will be discussed in further detail at your follow- up appointment, if applicable. Please Follow Up With: Corinne Dennis MD - After 5 PM and on the weekends call [phone] with any concerns When: The office for follow-up ointment 2 weeks. Proposed Discharge Date: 01/04/21
--- NOTE | 2021-01-04 13:32 | CASEMGMT ---
Addendum entered by Alma Murdock 01/04/21 14:45: Pt has returned to [facility] from PACU and is resting in bed. Awake/alert/oriented. Son, Juan C, @ bedside. Pt states she has been compliant w/medications since last admission. She states she has not been to see her PCP yet and has not scheduled an appt for f/u since last admission. Pt/son both aware pt to f/u with both PCP and surgeon @ d/c. They voice understanding. Pt/son both confirm pt's granddaughter is staying with her but she comes/goes. Pt's daughter is also planning on staying with her for a couple of days. Pt states her CM has been able to get an aide from [facility] to come a couple times a week as well. Pt denies need for HHC or OP therapy and denies any other discharge needs. Pt qualifies for a Palliative referral per the [facility] palliative screening tool at this time. Dr Jay aware and states ok for Palliative c/s at this time. Order place. Palliative updated at this time via . Face Sheet faxed to Palliative at this time. Monica TAN RN, CM Original Note: RN SAMIR readmission note: Previous admission: Admitted 12/28/20 w/acute sigmoid colitis, suspected diverticulitis. Pt improved w/IV atb's and discharged home 12/31/20 on Flagyl. She was instructed to f/u with her PCP. Pt had declined any HHC or OP therapy @ d/c. Per pt on last admission, her granddaughter has been staying with her, is supportive, and helps her as needed. Pt has hx: COPD and is on O2 @ 2 L/M @ home through [facility]. Current admission: Admitted 01/03/21 w/Incarcerated Incisional Hernia. Pt went to OR 01/04 for repair of strangulated incisional hernia. Call placed to Lon @ [facility]. She was made aware pt has been admitted to [facility] and that she may be ready for discharge later today if she tolerates diet well after surgery. Pt currently in PACU. RN CM to meet w/pt when she returns to [facility]. Monica TAN RN, CM
--- NOTE | 2021-01-04 13:34 | CASEMGMT ---
Social Work Note Pt has discharge in for today. ZAIDA placed a call to pt's CM Nata Cao and left message updating her that pt will likely be discharged today. ZAIDA faxed discharge paperwork to [facility]. Allyson Trinh REGIONAL SALES TRAINER, MANAGEMENT PSYCHOLOGIST
[2021-01-04] MEDS: oxyCODONE 5 MG Tablet PO (14:35)
[2021-01-04] MEDS: Gabapentin 300 MG Capsule PO (17:00)
--- NOTE | 2021-01-05 15:10 | CASEMGMT ---
RN CM Discharge Follow Up Phone Call: ROB: Roger Strata: 3 Call Date: 01.05.21 Discharge Date: 01.04.21 Time of Call: 1510 Duration: <1min Admitting Dx: incarc incisional hernia RN CM attempted to complete follow up phone call after recent hospitalization. No answer on pt phone and no answering machine.
--- NOTE | 2021-04-04 17:15 | CM.ED ---
SW Note SW received call from CONSTRUCTION ELECTRICIAN, Valdez Kingston, at [facility]. She indicated that patient broke her hip at [facility] on 03/27/21 and was in [facility] for 2 days and went home. Patient's daughter, who is caring for the patient, had a stroke. Patient is oxygen dependent at home using 3.5-4 L of oxygen. CONSTRUCTION ELECTRICIAN's internal recruiter had called patient to check on her status today and patient said that after her Physical Therapy today she was planning to go to the hospital. CONSTRUCTION ELECTRICIAN called patient's MD, Moy Person who stated that patient needs to come to the ED. Dr. Winter had stated that patient is not eligible for [facility] TCU. [facility] staff feels that patient needs to be evaluated for usp facility. Patient has some physical therapy at home but no usp. Valdez said that patient's meds are up to date in the computer. CONSTRUCTION ELECTRICIAN said that you need to figure out what to do.. she needs help. substance abuse therapist updated. Plan: To be determined. Maryam GIRALDO
== END 2021-01-04 17:43 | disposition home or self-care (01) | DRG 354 ==
LOC: ED 21:10 → MS3 22:29
PROVIDERS: Admitting Provider Surgery; Emergency Provider Emergency Medicine; PCP Family Medicine Geriatric Medicine; Visit Provider Internal Medicine
PROC: 0WQF0ZZ Repair Abdominal Wall, Open Approach (ICD-10-PCS; principal; 2021-01-04 11:30)
DX: K43.0 Incisional hernia with obstruction, without gangrene (principal); J44.1 Chronic obstructive pulmonary disease with (acute) exacerbation; K57.92 Diverticulitis of intestine, part unspecified, without perforation or abscess without bleeding; J96.11 Chronic respiratory failure with hypoxia; E87.6 Hypokalemia; M50.30 Other cervical disc degeneration, unspecified cervical region; G25.81 Restless legs syndrome; K21.9 Gastro-esophageal reflux disease without esophagitis; E78.5 Hyperlipidemia, unspecified; F32.9 Major depressive disorder, single episode, unspecified; F41.9 Anxiety disorder, unspecified; F17.290 Nicotine dependence, other tobacco product, uncomplicated; G62.9 Polyneuropathy, unspecified; E78.00 Pure hypercholesterolemia, unspecified; Z79.51 Long term (current) use of inhaled steroids; Z79.83 Long term (current) use of bisphosphonates; Z82.5 Family history of asthma and other chronic lower respiratory diseases; Z80.0 Family history of malignant neoplasm of digestive organs; Z90.49 Acquired absence of other specified parts of digestive tract; Z99.81 Dependence on supplemental oxygen; Z90.710 Acquired absence of both cervix and uterus
CPT/HCPCS: 36415; 71045; 74177; 80048; 80053; 82803; 83605; 83735; 84484; 85025; 85610; 85730; 86850; 86900; 86901; 87426; 88302; 93005; 94640; 97802; 99251; 99285; 99406; J7040; J7120; Q9967; A4216; G0463; J2405; J3490

== ENCOUNTER → 2021-03-13 15:41 | Outpatient (CLI) | payer MEDICARE, SELFPAY ==
[2021-01-03 23:50] VITALS: BMI 27.0
[2021-03-13 17:18] LABS: Absolute Lymphocyte Count 2.59 X10^3/uL (0.83-4.51); Absolute Neutrophil Count 4.1 X10^3/uL (2.0-7.7); Basophil# 0.04 X10^3/uL; Basophil% 0.5 % (0-1); Eosinophil# 0.62 X10^3/uL; Eosinophils% 7.7 % (0-5); Hematocrit 40.8 % (37-47); Hemoglobin 13.4 g/dL (12.0-15.0); Lymphocyte # 2.59 X10^3/ul (0.83-4.51); Lymphocyte % 32.1 % (19-41); Mean Corp Hgb Conc 32.8 g/dL (32-36); Mean Corpuscular Hgb 28.6 pg (27.0-32.0); Mean Corpuscular Volume 87.2 fL (81-99); Mean Platelet Vol. 10.1 fl (6.2-12.0); Monocyte# 0.71 X10^3/uL; Monocyte% 8.8 % (0-10); NRBC Flagged by Analyzer 0 % (0-5); Neutrophil % 50.7 % (47-70); Platelet Count 339 K/mm3 (150-450); RBC Distribution Width CV 15.5 % (11.6-14.6); RBC Distribution Width SD 49.1 fl (35.1-43.9); Red Blood Count 4.68 M/mm3 (4.2-5.4); White Blood Count 8.1 K/mm3 (4.4-11.0)
[2021-03-13 17:31] LABS: AST(SGOT) 16 U/L (15-37); Alanine Aminotransfer ALT/SGPT 15 U/L (13-56); Albumin, Serum 3.5 g/dL (3.2-5.0); Alkaline Phosphatase 58 U/L (45-117); Anion Gap 10 (5-15); BUN 9 mg/dL (7-18); BUN/Creat Ratio 13.1 RATIO (10-20); Calcium,Total 8.9 mg/dL (8.5-10.1); Chloride 97 mmol/L (98-107); Creatinine, Serum 0.68 mg/dL (0.55-1.02); EST Glomerular Filtration Rate 89 mL/min (>60); Est Glom Filt Rate - Afr Amer 108 mL/min (>60); Globulin 3.6 g/dL (2.2-4.2); Glucose 89 mg/dL (74-106); Potassium 4.1 mmol/L (3.5-5.1); Protein, Total 7.1 g/dL (6.4-8.2); Sodium Level 133 mmol/L (136-145); Thyroid Stim Hormone (TSH) 0.74 uIU/mL (0.358-3.74)
[2021-03-13 17:36] LABS: Vitamin D,25 Hydroxy 25.2 ng/mL
== END ==
PROVIDERS: PCP Family Medicine Geriatric Medicine; Visit Provider Family Medicine Geriatric Medicine
DX: R53.83 Other fatigue (principal); E55.9 Vitamin D deficiency, unspecified
CPT/HCPCS: 36415; 80053; 82306; 84443; 85025

== ENCOUNTER 2021-04-04 18:24 | Observation (INO) | payer MEDICARE, MEDICAID, SELFPAY ==
[2021-01-03 23:50] VITALS: BMI 27.0
[2021-04-04 18:25] VITALS: BP 118/72; PULSE 101; RESP 24; TEMP 37.1; O2SAT 93; BMI 27.8
--- NOTE | 2021-04-04 19:06 | CM.ED ---
04/04/21 17:15 - Case Management - ED by Maryam Hollingsworth Acct Num: [id number] : 1945 Patient Age: 75 SW Note SW received call from KETTLE FIRER, Valdez Kingston, at [facility]. She indicated that patient broke her hip at [place] on 03/27/21 and was in [facility] for 2 days and went home. Patient's daughter, who is caring for the patient, had a stroke. Patient is oxygen dependent at home using 3.5-4 L of oxygen. KETTLE FIRER's sales and marketing intern had called patient to check on her status today and patient said that after her Physical Therapy today she was planning to go to the hospital. KETTLE FIRER called patient's MD, Moy Person who stated that patient needs to come to the ED. Dr. Winter had stated that patient is not eligible for [facility] TCU. [facility] staff feels that patient needs to be evaluated for penitentiary facility. Patient has some physical therapy at home but no penitentiary. Valdez said that patient's meds are up to date in the computer. BAKARI said that you need to figure out what to do.. she needs help. sharepoint application architect updated. Plan: To be determined. Maryam Edel GIRALDO Initialized on 04/04/21 17:15 - END OF NOTE
--- NOTE | 2021-04-04 19:32 | US_ITS ---
INDICATION: RT HIP SX NOW WITH LEG PAIN AND SWELLING EXAMINATION: US Venous Duplex LE Unilat / Limited TECHNIQUE: Sharma scale, pulse wave, and color flow Doppler imaging was performed of the lower extremity venous system. The right greater saphenous, common femoral, femoral, and popliteal veins were interrogated. COMPARISON: None. FINDINGS: There is normal compression, augmentation, and signal throughout the visualized deep lower extremity veins. No mass. 3.6 x 1.6 x 0.7 cm fluid collection posterior to the right knee compatible with Mancera''s cyst. US/Venous Duplex Imag/Limited/Uni IMPRESSION: No sonographic evidence of deep venous thrombosis. 3.6 cm Mancera''s cyst on the right. Electronically Signed: Bobby Hoover MD at 20:12 EDT Tel , Service support ,
--- NOTE | 2021-04-04 20:04 | EX.ED.DYSGE1 ---
HPI History of Present Illness Chief Complaint: Lower Extremity Injury Informant: patient Narrative Narrative: Patient is a 75-year-old female who presents to the emergency department with difficulty doing her daily tasks at home. She had a hip fracture with surgery March 26. She was sent home. She only has her daughter to help take care of her who has health issues of her own. She states that she does get around very slowly with a walker but has a hard time getting to the bathroom and take care of herself. She spoke to her PCP who referred her to the emergency department. Patient has had swelling and pain in that right leg. She denies any chest pain, shortness of breath or heart palpitations. No abdominal pain or nausea/vomiting. No diarrhea. No fevers or chills. Patient has been taking her pain medication very rarely at home. [facility] Medical History (Updated 04/04/21 @ 21:[address] Ric Omalley, ) Bleeding disorder cataracts COPD (chronic obstructive pulmonary disease) Gout High cholesterol Hx of gallstones Neuropathy On home O2 Osteoarthritis Home Medications furosemide 40 mg PO DAILY 09/19/16 [History Last Taken 04/04/21] gabapentin 300 mg PO BIDCM 09/19/16 [History Last Taken 04/04/21] roflumilast 500 mcg PO DAILY 09/19/16 [History Last Taken 04/04/21] ropinirole 0.5 mg PO QHS 09/19/16 [History Last Taken 04/03/21] alendronate 70 mg PO WE 10/24/18 [History Last Taken 03/29/21] famotidine 40 mg PO DAILY 10/24/18 [History Last Taken 04/04/21] albuterol sulfate 1.25 mg INHALATION Q4H 04/04/21 [History Last Taken 04/03/21] bupropion HCl 150 mg PO BID 04/04/21 [History Last Taken 04/04/21] citalopram 20 mg PO QHS 04/04/21 [History Last Taken 04/03/21] cyanocobalamin (vitamin B-12) [Vitamin B-12] 2,000 mcg PO DAILY 04/04/21 [History Last Taken 04/04/21] fluticasone furoate-vilanterol [Breo Ellipta] 1 inh INHALATION BID 04/04/21 [History Last Taken 04/03/21] loratadine 10 mg PO DAILY 04/04/21 [History Last Taken 04/04/21] myemedfrrhrd-qcstogzx-dcrqbj [Centrum Silver] 1 tab PO DAILY 04/04/21 [History Last Taken 04/04/21] oxycodone-acetaminophen 1 tab PO Q4H PRN PRN 04/04/21 [History Last Taken 04/04/21] potassium chloride 20 meq PO DAILY 04/04/21 [History Last Taken 04/04/21] rivaroxaban [Xarelto] 10 mg PO DAILY 04/04/21 [History Last Taken 04/04/21] umeclidinium [Incruse Ellipta] 1 inh INHALATION DAILY 04/04/21 [History Last Taken 04/04/21] Allergy/AdvReac Type Severity Reaction Status Date / Time bupropion HCl Allergy Anaphylaxis Verified 04/04/21 18:25 [From Wellbutrin] cephalexin monohydrate Allergy Anaphylaxis Verified 04/04/21 18:25 [From Keflex] levofloxacin Allergy Anaphylaxis Verified 04/04/21 18:25 Penicillins [PCN] Allergy Anaphylaxis Verified 04/04/21 18:25 Milk Containing Products AdvReac phlegm Verified 04/04/21 18:25 Family History Father Colon cancer Heart disease Surgical History History of cholecystectomy History of hysterectomy History of incisional hernia repair Social History Smoking Status: Current some day smoker tobacco type: cigarettes ROS ROS ED Constitutional Constitutional ED: Denies chills or fever(s) Eyes Eyes: Denies change in vision ENT ENT ED: Denies epistaxis or rhinorrhea Cardiovascular Cardiovascular: Denies chest pain or palpitations Respiratory/Chest Respiratory/Chest: Denies cough, dyspnea or dyspnea on exertion Gastrointestinal Gastrointestinal: Denies abdominal pain, diarrhea, nausea or vomiting Genitourinary Genitourinary ED: Denies dysuria, hematuria or urinary frequency Musculoskeletal Musculoskeletal: Denies back pain or neck pain Integumentary Denies rash Neurologic Neurologic: Denies dizziness, headache(s) or weakness EXAM Physical Exam Const Vital Signs: 04/04/21 18:25 04/04/21 20:30 04/04/21 21:15 Temperature 98.8 F 97.8 F Temperature Source Temporal Temporal Pulse Rate 101 H 102 H 103 H Respiratory Rate 24 H 21 H 16 Blood Pressure 118/72 103/53 L 105/83 H Blood Pressure Mean 87 69 90 Pulse Ox 93 93 93 Oxygen Delivery Method Nasal Cannula Room Air Nasal Cannula Oxygen Flow Rate (L/min) 3 3 Positive well nourished and well developed General Appearance ED: well developed and NAD HEENT Reports normocephalic, head/scalp atraumatic and moist mucous membranes Eyes PERRL and EOMs intact bilaterally Neck supple Resp normal respiratory effort and clear to auscultation bilaterally Auscultation: Negative for rales, rhonchi or wheezes Cardio regular rate, regular rhythm and no murmurs GI normal to inspection, nondistended, normoactive bowel sounds and non-tender Palpation: soft; Negative for guarding or rebound tenderness present Extremity Extremity Narrative: 1+ pitting edema of right lower extremity. No significant tenderness. No overlying skin changes. General Extremety ED: Negative for tenderness Neuro CN's II-XII intact bilaterally and no sensory deficits noted Sensorium / Orientation: alert Motor Exam: strength 5/5 throughout Psych mental status grossly normal Skin no rashes or lesions noted MDM MDM MDM Narrative Medical decision making narrative: Patient presents to the ED for inability to take care of herself at home. She spoke to her PCP who wanted her to be placed into rehab. Apparently there is an issue with her insurance getting her into the transitional care unit. We will check basic lab work and ultrasound of the leg. Basic lab work obtained which did not reveal any significant acute abnormality. Ultrasound of the lower extremity was obtained as she has significant swelling which was negative for DVT. There was a Mancera's cyst. This time will bring into the hospital for rehab services and potential placement. She understands and is agreeable with this plan. Lab Data Labs: Laboratory Results - last 24 hr 04/04/21 04/04/21 20:10 20:10 WBC 10.4 RBC 4.17 L Hgb 12.2 Hct 37.3 MCV 89.4 MCH 29.3 MCHC 32.7 RDW Std Deviation 51.8 H RDW Coeff of Jacinto 17.3 H Plt Count 420 MPV 9.6 Immature Gran % (Auto) 0.500 Neut % (Auto) 65.2 Lymph % (Auto) 17.3 L Mercer % (Auto) 10.7 H Eos % (Auto) 6.1 H Baso % (Auto) 0.2 Absolute Neuts (auto) 6.8 Absolute Lymphs (auto) 1.80 Nucleated RBC % 0 Sodium 141 Potassium 4.7 Chloride 105 Carbon Dioxide 32.0 Anion Gap 4 L BUN 11 Creatinine 0.54 L Estim Creat Clear Calc 40.83 Est GFR (MDRD) Af Amer 142 Est GFR (MDRD) Non-Af 117 BUN/Creatinine Ratio 20.4 H Glucose 79 Calcium 8.8 Radiography Diagnostic Testing: Radiology Impression Venous Duplex 04/04/21 19:32 IMPRESSION: No sonographic evidence of deep venous thrombosis. 3.6 cm Mancera''s cyst on the right. Electronically Signed: Bobby Hoover MD at 20:12 EDT Tel , Service support , Discharge Plan Dx/Rx/DC Orders Clinical Impression: Deficit in activities of daily living (ADL) Disposition Disposition: Acute Care Hospital [facility]
[2021-04-04 20:29] LABS: Absolute Neutrophil Count 6.8 X10^3/uL (2.0-7.7); Basophil# 0.02 X10^3/uL; Basophil% 0.2 % (0-1); Eosinophil# 0.64 X10^3/uL; Eosinophils% 6.1 % (0-5); Hematocrit 37.3 % (37-47); Hemoglobin 12.2 g/dL (12.0-15.0); Lymphocyte % 17.3 % (19-41); Mean Corp Hgb Conc 32.7 g/dL (32-36); Mean Corpuscular Hgb 29.3 pg (27.0-32.0); Mean Corpuscular Volume 89.4 fL (81-99); Mean Platelet Vol. 9.6 fl (6.2-12.0); Monocyte# 1.12 X10^3/uL; Monocyte% 10.7 % (0-10); NRBC Flagged by Analyzer 0 % (0-5); Neutrophil # 6.79 X10^3/uL (2.7-7.7); Neutrophil % 65.2 % (47-70); Platelet Count 420 K/mm3 (150-450); RBC Distribution Width CV 17.3 % (11.6-14.6); RBC Distribution Width SD 51.8 fl (35.1-43.9); Red Blood Count 4.17 M/mm3 (4.2-5.4); White Blood Count 10.4 K/mm3 (4.4-11.0)
[2021-04-04 20:30] VITALS: BP 103/53; PULSE 102; RESP 21; O2SAT 93
[2021-04-04 20:47] LABS: Anion Gap 4 (5-15); BUN 11 mg/dL (7-18); BUN/Creat Ratio 20.4 RATIO (10-20); Calcium,Total 8.8 mg/dL (8.5-10.1); Chloride 105 mmol/L (98-107); Creatinine, Serum 0.54 mg/dL (0.55-1.02); EST Glomerular Filtration Rate 117 mL/min (>60); Est Glom Filt Rate - Afr Amer 142 mL/min (>60); Estimated Creatinine Clearance 40.83 ml/min; Glucose 79 mg/dL (74-106); Potassium 4.7 mmol/L (3.5-5.1); Sodium Level 141 mmol/L (136-145)
[2021-04-04 21:15] VITALS: BP 105/83; PULSE 103; RESP 16; TEMP 36.6; O2SAT 93
--- NOTE | 2021-04-04 21:27 | HP.PCM.HOS_ITS ---
HPI - General General Date of Admission: 04/04/21 HPI Narrative LISETTE HERNANDEZ, is a 75 F with a PMH as outlined who was admitted via the ED on 04/04/2021 with a complaint of weakness and left hip pain. She fell and fractured her left hip on March 26, 2021. She had surgery at [facility] and was discharged home on 03/28/2021. She says she only had her daughter at home to help her, and her daughter also had medical problems so had not been able to help very much. She had also not been having physical therapy until today when she had her first session of therapy. She has been in increased pain and has been weak and unable to carry out a activities of daily living. She called her PCP and was referred to the ED. She also complained of pain and swelling in the right leg but denied any chest pain, palpitations, shortness of breath, dizziness, nausea vomiting. Review of systems otherwise negative. Patient was discharged on Xarelto which she has been compliant with. CBC and BMP were unremarkable. Duplex done of the right lower extremity was negative for DVT and showed a Mancera's cyst. She was admitted to be managed for debility due to right hip fracture s/p surgery and will need placement. [facility] Medical History (Updated 04/04/21 @ 21:[address] Joanne Mock MD) Bleeding disorder cataracts COPD (chronic obstructive pulmonary disease) Gout High cholesterol Hx of gallstones Neuropathy On home O2 Osteoarthritis Home Medications furosemide 40 mg PO DAILY 09/19/16 [History Last Taken 04/04/21] gabapentin 300 mg PO BIDCM 09/19/16 [History Last Taken 04/04/21] roflumilast 500 mcg PO DAILY 09/19/16 [History Last Taken 04/04/21] ropinirole 0.5 mg PO QHS 09/19/16 [History Last Taken 04/03/21] alendronate 70 mg PO WE 10/24/18 [History Last Taken 03/29/21] famotidine 40 mg PO DAILY 10/24/18 [History Last Taken 04/04/21] albuterol sulfate 1.25 mg INHALATION Q4H 04/04/21 [History Last Taken 04/03/21] bupropion HCl 150 mg PO BID 04/04/21 [History Last Taken 04/04/21] citalopram 20 mg PO QHS 04/04/21 [History Last Taken 04/03/21] cyanocobalamin (vitamin B-12) [Vitamin B-12] 2,000 mcg PO DAILY 04/04/21 [History Last Taken 04/04/21] fluticasone furoate-vilanterol [Breo Ellipta] 1 inh INHALATION BID 04/04/21 [History Last Taken 04/03/21] loratadine 10 mg PO DAILY 04/04/21 [History Last Taken 04/04/21] vduzmflzhlql-ondvujme-vmbtrl [Centrum Silver] 1 tab PO DAILY 04/04/21 [History Last Taken 04/04/21] oxycodone-acetaminophen 1 tab PO Q4H PRN PRN 04/04/21 [History Last Taken 04/04/21] potassium chloride 20 meq PO DAILY 04/04/21 [History Last Taken 04/04/21] rivaroxaban [Xarelto] 10 mg PO DAILY 04/04/21 [History Last Taken 04/04/21] umeclidinium [Incruse Ellipta] 1 inh INHALATION DAILY 04/04/21 [History Last Taken 04/04/21] Allergy/AdvReac Type Severity Reaction Status Date / Time bupropion HCl Allergy Anaphylaxis Verified 04/04/21 18:25 [From Wellbutrin] cephalexin monohydrate Allergy Anaphylaxis Verified 04/04/21 18:25 [From Keflex] levofloxacin Allergy Anaphylaxis Verified 04/04/21 18:25 Penicillins [PCN] Allergy Anaphylaxis Verified 04/04/21 18:25 Milk Containing Products AdvReac phlegm Verified 04/04/21 18:25 Family History Father Colon cancer Heart disease Surgical History History of cholecystectomy History of hysterectomy History of incisional hernia repair Social History Smoking Status: Current some day smoker tobacco type: cigarettes ROS Review of Systems ROS Unobtainable: Denies due to encephalopathy Constitutional Constitutional: Reports fatigue, malaise and weakness; Denies anorexia, chills, fever(s) or night sweats Eyes Eyes: Denies double vision ENT HEENT: Denies dysphagia, headache(s) or nasal congestion Cardiovascular Cardiovascular: Reports edema; Denies chest pain, dyspnea on exertion, lightheadedness, orthopnea, palpitations, paroxysmal nocturnal dyspnea, rapid heart rate or syncope Respiratory/Chest Respiratory/Chest: Denies cough, dyspnea, shortness of breath at rest or shortne ss of breath with exertion Gastrointestinal Gastrointestinal: Denies abdominal pain, constipation, diarrhea, melena, nausea or vomiting Genitourinary Genitourinary: Denies burning urination Musculoskeletal Musculoskeletal: Denies arthralgias, back pain, joint stiffness, joint swelling, myalgias or neck pain Neurologic Neurologic: Denies abnormal gait, confusion, dizziness or focal weakness Psychiatric Psychiatric: Denies anxiety or depression Vital Signs Vital Signs Vital Signs: 04/04/21 18:25 04/04/21 20:30 04/04/21 21:15 Temperature 98.8 F 97.8 F Temperature Source Temporal Temporal Pulse Rate 101 H 102 H 103 H Respiratory Rate 24 H 21 H 16 Blood Pressure 118/72 103/53 L 105/83 H Blood Pressure Mean 87 69 90 Pulse Ox 93 93 93 Oxygen Delivery Method Nasal Cannula Room Air Nasal Cannula Oxygen Flow Rate (L/min) 3 3 Weight Weight: 157 lb 3.033 oz Body Mass Index (BMI) 27.8 Physical Exam Const alert, oriented x3 and no apparent distress General Appearance: cooperative HEENT normocephalic, head/scalp atraumatic, hearing grossly normal bilaterally and moist oral mucous membranes Eyes PERRL, EOMs intact bilaterally and conjunctivae normal Neck no lymphadenopathy, supple and no JVD Resp normal respiratory effort, no retractions, no use of accessory muscles and clear to auscultation bilaterally Cardio regular rate, regular rhythm, S1 normal heart sound, S2 normal heart sound and no murmurs GI normal to inspection, nondistended, normoactive bowel sounds, soft to palpation, non-tender and non-distended Extremity normal to inspection Extremity Narrative: RLE has 1+ edema; dressing over right hip intact Peripheral Pulses: Yes pulses 2+ throughout Skin no rashes or lesions noted Neuro oriented x3 Sensorium / Orientation: awake and alert Psych affect normal Results Lab / Micro Data Result Diagrams: 04/04/21 20:10 04/04/21 20:10 Labs: Laboratory Results - last 24 hr 04/04/21 20:10: WBC 10.4, RBC 4.17 L, Hgb 12.2, Hct 37.3, MCV 89.4, MCH 29.3, MCHC 32.7, RDW Std Deviation 51.8 H, RDW Coeff of Jacinto 17.3 H, Plt Count 420, MPV 9.6, Immature Gran % (Auto) 0.500, Neut % (Auto) 65.2, Lymph % (Auto) 17.3 L, [place] % (Auto) 10.7 H, Eos % (Auto) 6.1 H, Baso % (Auto) 0.2, Absolute Neuts (auto) 6.8, Absolute Lymphs (auto) 1.80, Nucleated RBC % 0 04/04/21 20:10: Sodium 141, Potassium 4.7, Chloride 105, Carbon Dioxide 32.0, Anion Gap 4 L, BUN 11, Creatinine 0.54 L, Estim Creat Clear Calc 40.83, Est GFR (MDRD) Af Amer 142, Est GFR (MDRD) Non-Af 117, BUN/Creatinine Ratio 20.4 H, Glucose 79, Calcium 8.8 Radiology Impression Venous Duplex 04/04/21 19:32 IMPRESSION: No sonographic evidence of deep venous thrombosis. 3.6 cm Mancera''s cyst on the right. Electronically Signed: Bobby Hoover MD at 20:12 EDT Tel , Service support , Assessment & Plan Assessment/Plan (1) Debility: (2) S/P right hip fracture: PLAN: #Debility due to right hip fracture s/p repair * admit to med surg * IV morphine, PO [place] prn for pain * PT/OT consulted * fall precautions * Duplex of RLE done due to edema was negative for DVT * patient lives with her daughter at home who is unable to help her much; patient is also unable to care for herself * will need placement; prefers TCU if possible * #Right hip fracture s/p surgery * had surgery at [facility] on March 26 * stable. PT/OT on board. Fall precautions * #COPD * not in exacerbation. * breathing treatment with bronchodilators * titrate oxygen as needed to maintain sats >90% * on roflumilast, Incruse ellipta and Breo elipta. * #Restless leg syndrome: on ropinirole DVT prophylaxis: on xarelto 10mg daily Disposition: needs placement. Code status: full code * Patient and son counseled extensively about different types of CODE STATUS including full code, DNR CCA and DNR CCA. Patient elects to be full code. Total qxsv-ge-eobt time 16 minutes. Charges/Coding Visit Charges OBSV E&M: 87563 Initial observation care L2 Procedures Hospitalists Procedures: 63744 Critial Care Addl 30 Min
[2021-04-04 22:03] VITALS: BMI 25.8
[2021-04-04 22:05] VITALS: BP 117/64; PULSE 103; RESP 18; TEMP 37; O2SAT 94
[2021-04-04] MEDS: oxyCODONE 5 MG Tablet PO (22:46)
[2021-04-04] MEDS: Pramipexole Di-HCl 0.25 MG Tablet PO (22:46)
[2021-04-04] MEDS: Citalopram 20 MG Tablet PO (22:47)
[2021-04-04 22:51] VITALS: RESP 18; O2SAT 94
[2021-04-05] VITALS (10 sets, daily range): BP systolic 105–131; BP diastolic 51–74; PULSE 80–114; RESP 16–20; TEMP 36.6–36.8; O2SAT 91–96
[2021-04-05] MEDS: Morphine 2 MG/ML Syringe IV ×3 (00:15→10:08)
[2021-04-05] MEDS: 0.9% Saline Lock 10 ML Syringe IV ×3 (00:16→10:09)
[2021-04-05] MEDS: oxyCODONE 5 MG Tablet PO (02:57)
[2021-04-05] MEDS: Nystatin Powder 15gm Bottle 1 APPLIC TOPICAL ×2 (05:14→13:38)
[2021-04-05] MEDS: Alendronate Sodium 70 MG Tablet PO (05:14)
[2021-04-05 06:08] LABS: Absolute Neutrophil Count 5.4 X10^3/uL (2.0-7.7); Basophil# 0.03 X10^3/uL; Basophil% 0.3 % (0-1); Eosinophil# 0.86 X10^3/uL; Eosinophils% 9.1 % (0-5); Hemoglobin 11.2 g/dL (12.0-15.0); Lymphocyte % 21.1 % (19-41); Mean Corp Hgb Conc 32.9 g/dL (32-36); Mean Corpuscular Hgb 29.6 pg (27.0-32.0); Mean Corpuscular Volume 89.9 fL (81-99); Mean Platelet Vol. 9.2 fl (6.2-12.0); Monocyte# 1.15 X10^3/uL; Monocyte% 12.1 % (0-10); NRBC Flagged by Analyzer 0 % (0-5); Neutrophil # 5.41 X10^3/uL (2.7-7.7); Platelet Count 425 K/mm3 (150-450); RBC Distribution Width CV 16.9 % (11.6-14.6); RBC Distribution Width SD 52.7 fl (35.1-43.9); Red Blood Count 3.78 M/mm3 (4.2-5.4); White Blood Count 9.5 K/mm3 (4.4-11.0)
[2021-04-05 06:46] LABS: Anion Gap 4 (5-15); BUN 11 mg/dL (7-18); BUN/Creat Ratio 20.1 RATIO (10-20); Calcium,Total 8.5 mg/dL (8.5-10.1); Chloride 105 mmol/L (98-107); Creatinine, Serum 0.55 mg/dL (0.55-1.02); EST Glomerular Filtration Rate 116 mL/min (>60); Est Glom Filt Rate - Afr Amer 140 mL/min (>60); Estimated Creatinine Clearance 40.83 ml/min; Glucose 98 mg/dL (74-106); Potassium 4.1 mmol/L (3.5-5.1); Sodium Level 141 mmol/L (136-145)
[2021-04-05] MEDS: Budesonide Respules 0.5 MG/2 ML AMPUL.NEB. INHALATION (06:56)
[2021-04-05] MEDS: Ipratropium/Albuterol Sulfate 3 ML AMPUL.NEB INHALATION ×2 (06:56→13:17)
[2021-04-05] MEDS: Multivitamins,Ther W-Minerals Tablet 1 TABLET PO (08:05)
[2021-04-05] MEDS: Gabapentin 300 MG Capsule PO (08:05)
[2021-04-05] MEDS: Potassium Chloride Oral Tablet 20 MEQ PO (08:05)
--- NOTE | 2021-04-05 09:19 | CASEMGMT ---
Social Work Note Per [employer] questions, pt has completed HCPOA and LW and provided documents to [facility]. SW reviewed chart, both HCPOA and LW are on pt's chart. Allyson Trinh RESEARCH SPECIALIST, MATERIAL MOVERS
--- NOTE | 2021-04-05 09:57 | CASEMGMT ---
Social Work Assessment Referral Date: 04/05/2021 Date of Assessment: 04/05/2021 Reason for consult: Poss SNF placement Informant: SW Personal Status: SW met with pt to complete initial assessment. Pt is alert and orientated x3, but is very sleepy during assessment and falls asleep multiple times during conversation. Living Arrangements: Pt states she lives alone in a one story home with 4-5 steps to enter. Pt states she has railings on the steps. DME: Cane, Walker, Oxygen. Pt states her Oxygen is through [employer]. PCP: Dr. Winter Pharmacy: [facility] or [facility] Advanced Directives: Pt has completed HCPOA and LW, both documents are on file at [facility]. Transportation: [employer] ADLs: Pt states she was previously independent Supports: Pt states she has a son and daughter that are good support, able to assist if needed. Substance Abuse: Pt states she smokes cigarettes, less than a pack a day Mental Health Hx: Pt states some history of anxiety and depression. Pt states she is on medications prescribed through her PCP Dr. Winter. Pt denied any history of suicidal thoughts/plans/ideations. Pt denied any current suicidal thoughts/plans/ideations. HHC: Pt is active with [facility] per reports. Pt states she was going to get PT in the home soon. Pt states she was talking to an agency that was going to arrange the PT in the home, make her home handicapped accessible and get pt a hospital bed. Pt states she is not able to remember the name of this agency, states it was somewhere in [facility]. SNF: Pt denied SW spoke with pt about discharge plans. Pt states she wanted [facility] TCU but states she was told they don't take her insurance. SW confirmed this with pt. Pt states because she cant go to TCU, her preference is to return home with therapy in the home. SW asked pt if she would be agreeable to SNF in the community for short term rehabilitation and pt states not really. SW informed pt that PT/OT will work with pt while she is at [facility] and make recommendations. SW informed pt that once PT/OT works with pt and pt is more awake, this SW will follow up with pt. Pt states understanding. Patient was provided a list of SNF providers including quality and resource use data and consistent with the patient?s preferred geographic region, medical needs, and insurance network. Per previous notes, pt does have CM Nata Cao. SW placed a call to Nata Cao and left message updating her on pt's admission to [facility]. Plan: ODALYS Trinh VEHICLE UPHOLSTERER, INCINERATOR PLANT SUPERVISOR
[2021-04-05] MEDS: Famotidine 20 MG Tablet 40 MG PO (10:08)
[2021-04-05] MEDS: Cyanocobalamin 500 MCG Tablet 2000 MCG PO (10:08)
[2021-04-05] MEDS: Furosemide 40 MG Tablet PO (10:08)
[2021-04-05] MEDS: Loratadine 10 MG Tablet PO (10:08)
--- NOTE | 2021-04-05 14:43 | CASEMGMT ---
Social Work Note ZAIDA did place a call to [place] with TCU/RU. TCU doesn't accept pt's insurance and pt wouldn't qualify for RU. ZAIDA to continue to follow. Allyson Trinh LEAD TEACHER, NURSE INFORMATICS EDUCATOR
--- NOTE | 2021-04-05 15:44 | CASEMGMT ---
Addendum entered by Allyson Trinh 04/05/21 16:32: ZAIDA faxed discharge paperwork to Nata Cao at [facility]. Original Note: Social Work Note SW in to speak with pt to continue discussion of discharge plans. SW spoke with pt about how recommendation is SNF at discharge. Pt states it is her choice though and she wants to return home. SW informed pt that this worker is just trying to arrange a safe discharge plan for pt. SW again reiterated to pt that the recommendation is SNF for pt. Pt again states it is her decision and she wants to try her plan. SW asked pt what her plan is. Pt states to return home. Pt's son Juan C then entered pt's room. SW spoke with pt and Gene. Per PT/OT, pt required assistance with getting out of bed but once pt was up she was contact guard with PT/OT. PT/OT did mention that pt would likely get more exercises if pt returned home. Gene confirms that that is how pt is at home, once pt is up she is fine. Gene states his concerns is getting pt to the bathroom. SW informed pt and Gene that pt did require assistance for getting out of bed and bed exercises. Pt states if I would've had that toilet chair beside me, that would've been better. Pt states if I didn't have to walk all the way to the bathroom that would also help. Pt states that she has a pamphlet at home with some kind of agency that told her they could offer assistance to pt in the home. Pt and Gene states it was [facility]. SW spoke with pt and Gene about HHC and how it could be arranged but they will not provide 24/7 care. Gene also states his concerns are that pt and pt's daughter Prema will wear each other out. Pt states she is going to call her daughter Prema. SW in the room as pt called Juan C Lloyd also present. At the end of the phone call, pt states well it is my decision, I want to go home. SW spoke with pt about HHC being arranged before pt discharges home. Pt initially states she will go home with nothing but eventually agrees to HHC being arranged through [facility]. SW spoke with pt about HHC for RN, PT/OT, aides. Pt agreeable to RN, PT/OT, aides. Pt states she will also need a bedside commode and hospital bed and she has spoken to someone in [facility] about the hospital bed. ZAIDA did update Gene that pt is not able to go to [facility] as they are not in network with pt's insurance. Pt adamantly refusing SNF placement at this time. ZAIDA updated RN CM. ZAIDA placed a call to pt's CM Nata Cao at [facility]. Nata confirms pt gets HHC through [facility] and pt gets aide services through [facility]. ZAIDA updated Nata that pt is refusing SNF, will be discharged home today. Nata asked for discharge paperwork to be faxed. Plan: Home with HHC Allyson Trinh B[employer], MEDIA CENTER ASSISTANT
--- NOTE | 2021-04-05 16:03 | PCM.DC ---
Discharge Instructions Diet Discharge Diet: No restrictions Activity Discharge Activity: Return to Normal Activity Weight Bearing Status: Weight bearing as tolerated Follow Up Care Test Results: Test results from this visit will be discussed in further detail at your follow-up appointment, if applicable. Discharge Plan Admission Admit Date/Time: 04/04/21 21:26 Primary Reason for Your Visit: debility Attending Provider: Abbe Art Primary Care Provider: Shayne Winter Chi Discharge Orders/Prescriptions Prescriptions: Continued gabapentin 300 MG capsule 300 mg PO BIDCM RF: 0 ropinirole 0.5 MG tablet 0.5 mg PO QHS RF: 0 furosemide 40 MG tablet 40 mg PO DAILY RF: 0 roflumilast 500 MCG tablet 500 mcg PO DAILY RF: 0 famotidine 40 tablet 40 mg PO DAILY RF: 0 alendronate 70 tablet 70 mg PO WE RF: 0 oxycodone-acetaminophen 5-325 mg tablet 1 tab PO Q4H PRN PRN (Reason: Pain) RF: 0 Xarelto 10 mg tablet 10 mg PO DAILY RF: 0 Incruse Ellipta 62.5 mcg/actuation blister with device 1 inh INHALATION DAILY RF: 0 fkzrrjkyjywb-fzkjhwoi-rqteyg Tablet 1 tab PO DAILY RF: 0 bupropion HCl 150 mg tablet sustained-release 12 hr 150 mg PO BID RF: 0 albuterol sulfate 1.25 mg/3 mL Solution For Nebulization 1.25 mg INHALATION Q4H RF: 0 citalopram 20 mg tablet 20 mg PO QHS RF: 0 potassium chloride 20 mEq tablet,ER particles/crystals 20 meq PO DAILY RF: 0 cyanocobalamin (vitamin B-12) [Vitamin B-12] 2,000 mcg Tablet Extended Release 2,000 mcg PO DAILY RF: 0 loratadine 10 mg Tablet 10 mg PO DAILY RF: 0 Breo Ellipta 200-25 mcg/dose blister with device 1 inh INHALATION BID RF: 0 Referrals / Follow Up: Shayne Winter Chi, MD [Primary Care Provider] - Within 2 Weeks Disposition Disposition (needs filled in before D/C Order can be placed): Home Health Service
--- NOTE | 2021-04-05 16:15 | CASEMGMT ---
Addendum entered by Alma Murdock 04/07/21 07:27: Discharge summary faxed to [facility] Original Note: ELADIO DAWSON NOTE: 1400: Call received from BAKARI Kellogg, @ [facility], who pt is active with. Valdez voices concern w/pt returning home, stating she does not feel that pt is functioning well at home and recommends pt go to a SNF. Valdez made aware pt is refusing SNF at this time and plan is for her to return home. Valdez stated she thinks pt may have HHC from the [place] location, but she is not sure. Call placed to [facility] and spoke w/Radha. She confirms pt is active w/them for SN and PT ([facility]). She states pt also has aides through another agency, but she is not sure which one. Radha made aware pt is refusing SNF and wishes to return home w/[facility] services and that pt's son, Juan C, is agreeable to pt returning home as well. Radha also voices concern w/pt returning home, stating [facility] nurse feels SNF would be safer for pt, but understands it is pt's choice and they will accept pt for ADELA. 1600: ELADIO DAWSON to room to talk w/pt and her son, Juan C, who is at bedside. They were both notified that [facility] and [facility] are recommending pt go to a SNF prior to returning home. Pt states she still wishes to return home and is disappointed that she is not able to go to TCU. She is aware this is d/t they are not in network w/her insurance. Juan C spoke w/pt and he and this RN CM reinforced with pt that other SNF's could provide the same services/care as TCU but she states she does not wish to go anywhere else and she states again she wishes to go home. Gene/pt both made aware insurance does not cover for BSC and they were provided w/list of local [employer] companies and made aware other options are [employer], [employer], or drug [employer]. They voice appreciation of this information. Discussed hospital bed with them as well as pt had stated she would like one. They were notified that this could not be set up this late in the day, and instructed to f/u with [facility] re: same. They voice understanding. Call placed back to [facility] and left w/Radha to inform her pt would like hospital bed and BSC. She was also informed that pt is active w/[facility]. Call placed back to [facility] @ [facility]. ELADIO DAWSON confirmed w/her that pt is refusing SNF and is being discharged home. She was made aware pt is active w/[facility] and has SN and PT. She states she will contact [facility] and discuss pt's care. Monica DUARTEN ELADIO DAWSON
--- NOTE | 2021-04-06 17:15 | PCM.DC.SUM ---
Providers Date of Admission: 04/04/21 Date of Discharge: 04/05/21 Primary Care Physician: Dr. Shayne Winter MD Reason For Visit: DEBILITY DUE TO HIP FRACTURE Diagnosis Discharge Diagnosis (1) Debility: Status: Acute Code(s): R53.81 - Other malaise (2) S/P right hip fracture: Status: Acute Code(s): Z87.81 - Personal history of (healed) traumatic fracture Plan: 1. Debility secondary to recent right hip fracture #2 chronic obstructive pulmonary disease #3 chronic hypoxic respiratory failure secondary to chronic obstructive pulmonary disease #4 osteoporosis Medications at Discharge Home Medications furosemide 40 mg PO DAILY 09/19/16 gabapentin 300 mg PO BIDCM 09/19/16 roflumilast 500 mcg PO DAILY 09/19/16 ropinirole 0.5 mg PO QHS 09/19/16 alendronate 70 mg PO WE 10/24/18 famotidine 40 mg PO DAILY 10/24/18 Breo Ellipta 1 inh INHALATION BID 04/04/21 Incruse Ellipta 1 inh INHALATION DAILY 04/04/21 Xarelto 10 mg PO DAILY 04/04/21 albuterol sulfate 1.25 mg INHALATION Q4H 04/04/21 bupropion HCl 150 mg PO BID 04/04/21 citalopram 20 mg PO QHS 04/04/21 cyanocobalamin (vitamin B-12) [Vitamin B-12] 2,000 mcg PO DAILY 04/04/21 loratadine 10 mg PO DAILY 04/04/21 bhagbuaokvxb-jfootmze-dwjrac 1 tab PO DAILY 04/04/21 oxycodone-acetaminophen 1 tab PO Q4H PRN PRN 04/04/21 potassium chloride 20 meq PO DAILY 04/04/21 Hospital Course Operations None Procedures None Summary of Care Provided Minutes Spent on Discharge: 30 Hospital Course: This 75-year-old white female was seen in the emergency room at [facility] with a chief complaint of generalized weakness and debility. Patient had recently undergone repair of a right hip fracture on March 26, 2021. She was sent home from the hospital following this surgical repair and she complains of having a hard time getting around her home and doing her ADLs. Labs obtained in the emergency room did not show any abnormal labs with the exception of a slightly low hemoglobin at 11.2. Conversation was carried out with the patient and she requested placement at TCU if possible, she agreed to come into the hospital as an observation patient and be evaluated by physical therapy and Occupational Therapy. Patient was placed in observation status on MedSurg 3, she was seen by PT and OT, her insurance would not cover admission to TCU and the patient therefore decided that she would rather go home and have outpatient rehab services performed there. On 04/05/2021, patient was seen and examined: On examination she appeared her stated age. Vital signs as documented. Skin warm and dry and without overt rashes. Neck without JVD, neck was supple, trachea midline, thyroid was normal. Lungs clear bilaterally, normal air movement was noted. Heart exam notable for regular rhythm, normal sounds and absence of murmurs, rubs or gallops. Abdomen unremarkable and without evidence of organomegaly, masses, or abdominal aortic enlargement. Bowel sounds are present, abdomen is not distended. Extremities nonedematous, no cyanosis was noted, no clubbing was noted. Neuro: Cranial nerves II through XII are grossly intact, no focal motor deficits were noted, sensation to light touch and pinprick intact, motor exam 5/5 throughout. Psych: Patient is alert and oriented x3, she does not appear anxious or depressed, she does not appear agitated. On 04/05/2021, patient was discharged home in stable condition, outpatient therapy services were already in place. Weight / BMI Weight Weight: 67.2 kg Body Mass Index (BMI) 25.8 ABG / Lab / Microbiology Data Result Diagrams: 04/05/21 05:20 04/05/21 05:20 D/C Instructions Discharge Diet: No restrictions Weight Bearing Status: Weight bearing as tolerated Meaningful Use Info Meaningful Use Diagnoses (Choose all that apply): None applicable Discharge Plan Admission Admit Date/Time: 04/04/21 21:26 Primary Reason for Your Visit: debility Attending Provider: Abbe Art Primary Care Provider: Shayne Winter Chi Discharge Orders/Prescriptions Prescriptions: Continued gabapentin 300 MG capsule 300 mg PO BIDCM RF: 0 ropinirole 0.5 MG tablet 0.5 mg PO QHS RF: 0 furosemide 40 MG tablet 40 mg PO DAILY RF: 0 roflumilast 500 MCG tablet 500 mcg PO DAILY RF: 0 famotidine 40 tablet 40 mg PO DAILY RF: 0 alendronate 70 tablet 70 mg PO WE RF: 0 oxycodone-acetaminophen 5-325 mg tablet 1 tab PO Q4H PRN PRN (Reason: Pain) RF: 0 Xarelto 10 mg tablet 10 mg PO DAILY RF: 0 Incruse Ellipta 62.5 mcg/actuation blister with device 1 inh INHALATION DAILY RF: 0 oevggntcstqq-wnliuzby-ctosoz Tablet 1 tab PO DAILY RF: 0 bupropion HCl 150 mg tablet sustained-release 12 hr 150 mg PO BID RF: 0 albuterol sulfate 1.25 mg/3 mL Solution For Nebulization 1.25 mg INHALATION Q4H RF: 0 citalopram 20 mg tablet 20 mg PO QHS RF: 0 potassium chloride 20 mEq tablet,ER particles/crystals 20 meq PO DAILY RF: 0 cyanocobalamin (vitamin B-12) [Vitamin B-12] 2,000 mcg Tablet Extended Release 2,000 mcg PO DAILY RF: 0 loratadine 10 mg Tablet 10 mg PO DAILY RF: 0 Breo Ellipta 200-25 mcg/dose blister with device 1 inh INHALATION BID RF: 0 Referrals / Follow Up: Shayne Winter Chi, MD [Primary Care Provider] - Within 2 Weeks Disposition Disposition (needs filled in before D/C Order can be placed): Home Health Service Charges/Coding Visit Charges OBSV E&M: 01770 Observation care discharge
== END 2021-04-05 17:30 | disposition home health service (06) ==
LOC: ED 21:25 → MS3 21:29
PROVIDERS: Admitting Provider Student in an Organized Health Care Education/Training Program; Emergency Provider Emergency Medicine; PCP Family Medicine Geriatric Medicine; Visit Provider Internal Medicine
DX: R53.81 Other malaise (principal); J44.9 Chronic obstructive pulmonary disease, unspecified; J96.11 Chronic respiratory failure with hypoxia; M81.0 Age-related osteoporosis without current pathological fracture; G62.9 Polyneuropathy, unspecified; M19.90 Unspecified osteoarthritis, unspecified site; E78.00 Pure hypercholesterolemia, unspecified; F17.210 Nicotine dependence, cigarettes, uncomplicated; Z87.81 Personal history of (healed) traumatic fracture; Z79.899 Other long term (current) drug therapy; Z99.81 Dependence on supplemental oxygen; Z79.01 Long term (current) use of anticoagulants; G25.81 Restless legs syndrome; M79.89 Other specified soft tissue disorders
CPT/HCPCS: 36415; 80048; 85025; 93971; 94640; 96374; 96376; 97162; 97166; 99218; 99285; 99406; A4216; G0378

== ENCOUNTER → 2021-04-19 16:10 | Outpatient (CLI) | payer MEDICARE, MEDICAID, SELFPAY ==
[2021-04-04 22:03] VITALS: BMI 25.8
--- NOTE | 2021-04-19 16:26 | RAD_ITS ---
STUDY: X-RAY - ABDOMEN/PELVIS REASON FOR EXAM: Female, 75 years old. DIARRHEA TECHNIQUE: Two AP supine views of the abdomen and pelvis. COMPARISON: CT of abdomen and pelvis dated JANUARY 03, 2021 FINDINGS: Normal visualized lung bases. There is an unremarkable bowel gas pattern. There is no demonstrated free abdominal air. Normal soft tissue structures. There are diffuse degenerative changes of the visualized lumbar spine. Right hip hardware is present. RAD/Abd Inc Decub and/or Erect IMPRESSION: No demonstrated acute process Electronically Signed: Joselo Fox MD at 18:23 EDT , Service support ,
--- NOTE | 2021-04-19 16:30 | RAD_ITS ---
STUDY: X-RAY CHEST REASON FOR EXAM: Female, 75 years old. CONGESTION TECHNIQUE: PA and lateral views of the chest. COMPARISON: JANUARY 03, 2021 FINDINGS: There are chronic bibasilar interstitial fibrotic changes of the lungs. Cystic emphysematous changes are present. No visualized consolidation. There is no demonstrated pleural abnormality. Normal size heart. Normal mediastinum and jovanny. Normal visualized pulmonary arteries. There is atherosclerotic calcification of the aortic arch with tortuosity. There are diffuse degenerative changes of the visualized thoracic spine. Normal visualized ribs, clavicles, and shoulders. There is no demonstrated abnormality of the visualized soft tissue structures of the upper abdomen. RAD/Chest PA and Lateral IMPRESSION: 1. chronic bibasilar interstitial fibrotic changes of the lungs. Cystic emphysematous changes are present. No visualized consolidation. Electronically Signed: Joselo Fox MD at 18:07 EDT , Service support ,
[2021-04-19 17:20] LABS: D-Dimer Quantitative (DVT/PE) 2.37 FEU/ug/m (0.27-0.49)
== END ==
PROVIDERS: PCP Family Medicine Geriatric Medicine; Referring Provider Family Medicine Geriatric Medicine; Visit Provider Family Medicine Geriatric Medicine
DX: R06.89 Other abnormalities of breathing (principal); R19.7 Diarrhea, unspecified; R69 Illness, unspecified
CPT/HCPCS: 36415; 71046; 74019; 85379

== ENCOUNTER 2021-04-20 10:18 | Observation (INO) | payer MEDICARE, MEDICAID, SELFPAY ==
[2021-04-20] VITALS (16 sets, daily range): BP systolic 105–122; BP diastolic 48–85; PULSE 81–106; RESP 16–31; TEMP 36.3–37.1; O2SAT 81–100; BMI 25.8; BMI 24.1
--- NOTE | 2021-04-20 10:48 | EKG12_ITS ---
Test Reason : SOB Blood Pressure : / mmHG Vent. Rate : 087 BPM Atrial Rate : 087 BPM P-R Int : 130 ms QRS Dur : 074 ms QT Int : 382 ms P-R-T Axes : 074 -27 060 degrees QTc Int : 459 ms Normal sinus rhythm Low voltage QRS Borderline ECG Confirmed by CHANELL RAMÍREZ, CHASE ([id number]), manager editorial ELMIRA SOLIZ ([id number]) on 04/24/2021 10:38:10 AM Referred By: STANISLAW Confirmed By:ERIKA LUA MD
--- NOTE | 2021-04-20 10:59 | ED.VIS.DYS ---
HPI History of Present Illness Chief Complaint: Shortness of Breath Informant: patient Onset/Context/Timing Onset: Days (3) Context: gradual Timing: Continuous Quality: Positive for Dyspnea on exertion Worsened by: Exertion Relieved by: Rest Associated Symptoms cough, subjective and chills; Negative for rhinorrhea, ear pain, fever, sore throat, clear sputum, white sputum, yellow sputum or green sputum Chest Pain: Positive for Intermittent and Tightness Narrative Narrative: Patient presents with shortness of breath that has been getting worse over the past 3 days. Patient states she was at her primary care physician's office yesterday. Patient states she had some blood work drawn there. Patient states they called her today and told her to come to the emergency department for possible blood clot. Patient states she had recent right hip surgery to repair a fracture. Patient denies any recent travel. Patient denies any prior DVT or PE. Patient denies any history of cancer. Patient admits to some intermittent chest tightness. Patient also admits to a cough but denies any sputum production. Patient also admits to some subjective chills. Patient denies any fevers. [facility] Medical History Bleeding disorder cataracts COPD (chronic obstructive pulmonary disease) Gout High cholesterol Hx of gallstones Neuropathy On home O2 Osteoarthritis Sleep apnea Home Medications furosemide 40 mg PO DAILY 09/19/16 [History Last Taken 04/04/21] gabapentin 300 mg PO BIDCM 09/19/16 [History Last Taken 04/04/21] roflumilast 500 mcg PO DAILY 09/19/16 [History Last Taken 04/04/21] ropinirole 0.5 mg PO QHS 09/19/16 [History Last Taken 04/03/21] alendronate 70 mg PO WE 10/24/18 [History Last Taken 03/29/21] famotidine 40 mg PO DAILY 10/24/18 [History Last Taken 04/04/21] Breo Ellipta 1 inh INHALATION BID 04/04/21 [History Last Taken 04/03/21] Incruse Ellipta 1 inh INHALATION DAILY 04/04/21 [History Last Taken 04/04/21] albuterol sulfate 1.25 mg INHALATION Q4H 04/04/21 [History Last Taken 04/03/21] bupropion HCl 150 mg PO BID 04/04/21 [History Last Taken 04/04/21] citalopram 20 mg PO QHS 04/04/21 [History Last Taken 04/03/21] cyanocobalamin (vitamin B-12) [Vitamin B-12] 2,000 mcg PO DAILY 04/04/21 [History Last Taken 04/04/21] loratadine 10 mg PO DAILY 04/04/21 [History Last Taken 04/04/21] gjxikgbujmij-ruitwsca-zlpdju 1 tab PO DAILY 04/04/21 [History Last Taken 04/04/21] potassium chloride 20 meq PO DAILY 04/04/21 [History Last Taken 04/04/21] aspirin [Aspir-81] 81 mg PO DAILY 04/20/21 [History Last Taken Unknown] Allergy/AdvReac Type Severity Reaction Status Date / Time bupropion HCl Allergy Anaphylaxis Verified 04/20/21 10:19 [From Wellbutrin] cephalexin monohydrate Allergy Anaphylaxis Verified 04/20/21 10:19 [From Keflex] levofloxacin Allergy Anaphylaxis Verified 04/20/21 10:19 Penicillins [PCN] Allergy Anaphylaxis Verified 04/20/21 10:19 Milk Containing Products AdvReac phlegm Verified 04/20/21 10:19 Family History Father Colon cancer Heart disease Surgical History History of cholecystectomy History of hysterectomy History of incisional hernia repair Status post hip surgery Social History Smoking Status: Current some day smoker tobacco type: cigarettes ROS ROS ED Constitutional Constitutional ED: Reports chills; Denies fever(s) Eyes Eyes: Denies blurry vision or change in vision ENT ENT ED: Denies rhinorrhea or sore throat Cardiovascular Cardiovascular: Reports chest pain; Denies palpitations Respiratory/Chest Respiratory/Chest: Reports cough and dyspnea Gastrointestinal Gastrointestinal: Reports nausea; Denies vomiting Genitourinary Genitourinary ED: Denies dysuria or hematuria Musculoskeletal Musculoskeletal: Denies back pain or neck pain Integumentary Denies abscess or rash Neurologic Neurologic: Reports headache(s); Denies weakness Allergic/Immunologic Allergic/Immunologic ED: Denies mouth swelling or urticaria EXAM Physical Exam Const Vital Signs: 04/20/21 10:23 04/20/21 10:26 04/20/21 11:08 Temperature 98.3 F Temperature Source Oral Pulse Rate 88 90 Respiratory Rate 20 H 31 H Respiratory Effort Short of Breath Labored Respiratory Depth Normal Respiratory Pattern Normal Tachypnea Blood Pressure 115/58 L Blood Pressure Mean 77 Pulse Ox 95 Oxygen Delivery Method Nasal Cannula Nasal Cannula Oxygen Flow Rate (L/min) 3.5 3.5 04/20/21 12:26 04/20/21 14:21 Temperature Temperature Source Pulse Rate 83 81 Respiratory Rate 16 18 Respiratory Effort Respiratory Depth Respiratory Pattern Blood Pressure 122/85 H 105/62 Blood Pressure Mean 97 76 Pulse Ox 93 96 Oxygen Delivery Method Nasal Cannula Room Air Oxygen Flow Rate (L/min) 3 Positive well nourished and well developed General Appearance ED: well developed HEENT Reports moist mucous membranes Neck supple and no JVD Resp normal respiratory effort Auscultation: wheezes expiratory wheezes and throughout Cardio regular rate, regular rhythm and no murmurs GI normal to inspection, nondistended, normoactive bowel sounds and non-tender Palpation: soft Extremity normal to inspection General Extremety ED: Negative for edema or tenderness General Extremity: Negative for edema Neuro oriented x3, CN's II-XII intact bilaterally and no sensory deficits noted Sensorium / Orientation: alert Motor Exam: strength 5/5 throughout Psych mental status grossly normal Skin no rashes or lesions noted MDM MDM MDM Narrative Medical decision making narrative: EKG was obtained. On my interpretation, it showed a normal sinus rhythm with a rate of 87. MS interval, QRS interval, and QTc intervals were all normal. [place] was normal. There are no acute ST or T wave changes. CTA of the chest was obtained. There are multiple lower lobe pulmonary emboli. There are emphysematous changes noted. CBC and comprehensive metabolic profile were obtained and were within normal limits. Patient told me that she does not have any oxygen at home. Patient's oxygen was turned off and the patient attempted ambulation. Patient's oxygen saturations dropped to 88 prior to ambulating. Patient was put back on oxygen. Nurse informed me that the patient does have oxygen at home but only wears it at night. Patient was given a dose of Lovenox here. Case was discussed with the hospitalist. He will admit the patient for observation. Patient understood and was agreeable with the plan. All questions were answered. Lab Data Attestation: I reviewed the patient's lab results. Labs: Laboratory Results - last 24 hr 04/20/21 04/20/21 11:23 11:36 WBC 7.9 RBC 4.82 Hgb 13.6 Hct 43.4 MCV 90.0 MCH 28.2 MCHC 31.3 L RDW Std Deviation 55.8 H RDW Coeff of Jacinto 16.9 H Plt Count 396 MPV 9.2 Immature Gran % (Auto) 0.100 Neut % (Auto) 70.7 H Lymph % (Auto) 17.0 L Nicholas % (Auto) 7.0 Eos % (Auto) 4.7 Baso % (Auto) 0.5 Absolute Neuts (auto) 5.6 Absolute Lymphs (auto) 1.34 Nucleated RBC % 0 Sodium 136 Potassium 4.1 Chloride 104 Carbon Dioxide 26.0 Anion Gap 6 BUN 18 Creatinine 0.54 L Estim Creat Clear Calc 40.83 Est GFR (MDRD) Af Amer 140 Est GFR (MDRD) Non-Af 116 BUN/Creatinine Ratio 33.0 H Glucose 86 Calcium 8.9 Total Bilirubin 0.30 AST 13 L ALT 16 Alkaline Phosphatase 92 Troponin I High Sens 5.8 Total Protein 7.4 Albumin 3.1 L Globulin 4.3 H Albumin/Globulin Ratio 0.7 L Radiography Diagnostic Testing: Radiology Impression Chest CTA 04/20/21 12:06 IMPRESSION: Multiple pulmonary emboli in the lower lobes. Diffuse emphysematous changes with scarring and possible atelectasis at the lung bases with 3 small pleural-based nodules in the medial posterior aspect of the right lower lobe. Follow-up CT scan in 6 months is recommended for further evaluation. Electronically Signed: Mao Rodgers MD at 12:52 EDT , Service support , Treatment and Re-Evaluation Vital Sign Attestation:: Vital signs were reviewed prior to admission. They are stable. Discharge Plan Triage Chief Complaint: Shortness of Breath ED Provider: Felix Sage Dx/Rx/DC Orders Clinical Impression: Pulmonary emboli Prescriptions: No Action gabapentin 300 MG capsule 300 mg PO BIDCM RF: 0 ropinirole 0.5 MG tablet 0.5 mg PO QHS RF: 0 furosemide 40 MG tablet 40 mg PO DAILY RF: 0 roflumilast 500 MCG tablet 500 mcg PO DAILY RF: 0 famotidine 40 tablet 40 mg PO DAILY RF: 0 alendronate 70 tablet 70 mg PO WE RF: 0 Incruse Ellipta 62.5 mcg/actuation blister with device 1 inh INHALATION DAILY RF: 0 viwumhypxajq-fzvanimb-rybvgj Tablet 1 tab PO DAILY RF: 0 bupropion HCl 150 mg tablet sustained-release 12 hr 150 mg PO BID RF: 0 albuterol sulfate 1.25 mg/3 mL Solution For Nebulization 1.25 mg INHALATION Q4H RF: 0 citalopram 20 mg tablet 20 mg PO QHS RF: 0 potassium chloride 20 mEq tablet,ER particles/crystals 20 meq PO DAILY RF: 0 cyanocobalamin (vitamin B-12) [Vitamin B-12] 2,000 mcg Tablet Extended Release 2,000 mcg PO DAILY RF: 0 loratadine 10 mg Tablet 10 mg PO DAILY RF: 0 Breo Ellipta 200-25 mcg/dose blister with device 1 inh INHALATION BID RF: 0 aspirin [Aspir-81] 81 mg Tablet,Delayed Release (Dr/Ec) 81 mg PO DAILY RF: 0 Primary Care Provider: Shayne Winter Chi Referrals: Shayne Winter Chi, MD [Primary Care Provider] - Disposition Disposition: Acute Care Hospital [facility]
[2021-04-20] MEDS: Ipratropium/Albuterol Sulfate 3 ML AMPUL.NEB INHALATION (11:07)
[2021-04-20 11:48] LABS: Absolute Lymphocyte Count 1.34 X10^3/uL (0.83-4.51); Absolute Neutrophil Count 5.6 X10^3/uL (2.0-7.7); Basophil# 0.04 X10^3/uL; Basophil% 0.5 % (0-1); Eosinophil# 0.37 X10^3/uL; Eosinophils% 4.7 % (0-5); Hematocrit 43.4 % (37-47); Hemoglobin 13.6 g/dL (12.0-15.0); Lymphocyte # 1.34 X10^3/ul (0.83-4.51); Mean Corp Hgb Conc 31.3 g/dL (32-36); Mean Corpuscular Hgb 28.2 pg (27.0-32.0); Mean Platelet Vol. 9.2 fl (6.2-12.0); Monocyte# 0.55 X10^3/uL; NRBC Flagged by Analyzer 0 % (0-5); Neutrophil # 5.58 X10^3/uL (2.7-7.7); Neutrophil % 70.7 % (47-70); Platelet Count 396 K/mm3 (150-450); RBC Distribution Width CV 16.9 % (11.6-14.6); RBC Distribution Width SD 55.8 fl (35.1-43.9); Red Blood Count 4.82 M/mm3 (4.2-5.4); White Blood Count 7.9 K/mm3 (4.4-11.0)
[2021-04-20 11:50] LABS: ALB/GLOB Ratio 0.7 RATIO (0.9-2.4); AST(SGOT) 13 U/L (15-37); Alanine Aminotransfer ALT/SGPT 16 U/L (13-56); Albumin, Serum 3.1 g/dL (3.2-5.0); Alkaline Phosphatase 92 U/L (45-117); Anion Gap 6 (5-15); BUN 18 mg/dL (7-18); Calcium,Total 8.9 mg/dL (8.5-10.1); Chloride 104 mmol/L (98-107); Creatinine, Serum 0.54 mg/dL (0.55-1.02); EST Glomerular Filtration Rate 116 mL/min (>60); Est Glom Filt Rate - Afr Amer 140 mL/min (>60); Estimated Creatinine Clearance 40.83 ml/min; Globulin 4.3 g/dL (2.2-4.2); Glucose 86 mg/dL (74-106); Potassium 4.1 mmol/L (3.5-5.1); Protein, Total 7.4 g/dL (6.4-8.2); Sodium Level 136 mmol/L (136-145); Troponin-I HS 5.8 pg/mL (3.0-53.7)
--- NOTE | 2021-04-20 12:06 | CT_ITS ---
STUDY: CTA CHEST REASON FOR EXAM: Female, 75 years old. Chest pain RADIATION DOSAGE (If Supplied By Facility): CTDIvol = ( 5.2 ) mGy, DLP = ( 144.64 ) mGycm TECHNIQUE: The examination was performed with the intravenous administration of IV 100mL Isovue-370. Post-processing of the angiographic images was performed, with multiplanar reformation and 3D reconstruction. Individualized dose optimization techniques were used for this CT. COMPARISON: None. FINDINGS: There are multiple small intraluminal filling defects within the branches of the right and left lower lobe pulmonary arteries in keeping with the bilateral pulmonary emboli. Prominence of the main pulmonary artery There is atherosclerotic calcification of the aortic arch with tortuosity. There is no demonstrated aortic dissection. Normal heart and pericardium. Normal mediastinum. Normal hilar regions. Normal visualized trachea and bronchi. Hyperinflation. Emphysematous changes with scarring and possible atelectasis at the lung bases. There are 3 pleural-based nodular densities in the posterior medial aspect of the right lower lobe. The largest measures 1.17 x 0.8 cm. These may represent areas of scarring although a repeat CT scan in 6 months is recommended. There is also evidence of a 6.1 mm noncalcified nodule in the lateral aspect of the right upper lobe as seen on axial image #144. Normal chest wall structures. There are degenerative changes of thoracic spine. Normal visualized upper abdomen. CT/CTA Chest W/WO Contrast IMPRESSION: Multiple pulmonary emboli in the lower lobes. Diffuse emphysematous changes with scarring and possible atelectasis at the lung bases with 3 small pleural-based nodules in the medial posterior aspect of the right lower lobe. Follow-up CT scan in 6 months is recommended for further evaluation. Electronically Signed: Mao Rodgers MD at 12:52 EDT , Service support ,
--- NOTE | 2021-04-20 15:51 | HP.PCM.HOS_ITS ---
Documented by User: Maritza Granados NP, TRANSFORMATION LEAD-C 04/20/21 16:39 HPI - General General Date of Admission: 04/20/21 Chief Complaint: Shortness of breath. HPI Narrative LISETTE HERNANDEZ, is a 75 F who presents to the emergency room due to shortness of breath. Patient reports mild increased shortness of breath following recent hip replacement 03/26 however this has worsened over the past week. Patient was on Xarelto following surgery however this was completed one week ago. Patient denies cough, fever, chills. She denies calf pain, swelling. Patient reports ongoing weakness, she is open to rehab at discharge. Patient reports she wears home oxygen at baseline and has been wearing anywhere from 2 to 5 L at home. She states she increases her oxygen supplementation when she is anxious. She has a past medical history of COPD, osteoporosis, anxiety, depression, restless leg syndrome, GERD. PFSH Medical History Anxiety Bleeding disorder cataracts COPD (chronic obstructive pulmonary disease) Gout High cholesterol Hx of gallstones Migraines Neuropathy On home O2 Osteoarthritis Osteoporosis Sleep apnea Smoker Home Medications furosemide 40 mg PO DAILY 09/19/16 [History Last Taken 04/19/21] gabapentin 300 mg PO BIDCM 09/19/16 [History Last Taken 04/19/21] roflumilast 500 mcg PO DAILY 09/19/16 [History Last Taken 04/19/21] ropinirole 0.5 mg PO QHS 09/19/16 [History Last Taken 04/19/21] alendronate 70 mg PO WE 10/24/18 [History Last Taken 04/19/21] famotidine 40 mg PO DAILY 10/24/18 [History Last Taken 04/19/21] Breo Ellipta 1 inh INHALATION BID 04/04/21 [History Last Taken 04/19/21] Incruse Ellipta 1 inh INHALATION DAILY 04/04/21 [History Last Taken 04/19/21] albuterol sulfate 1.25 mg INHALATION Q4H 04/04/21 [History Last Taken 04/03/21] bupropion HCl 150 mg PO BID 04/04/21 [History Last Taken 04/19/21] citalopram 20 mg PO QHS 04/04/21 [History Last Taken 04/19/21] cyanocobalamin (vitamin B-12) [Vitamin B-12] 2,000 mcg PO DAILY 04/04/21 [History Last Taken 04/04/21] loratadine 10 mg PO DAILY 04/04/21 [History Last Taken 04/04/21] pcybqtrilwmn-nvxamlpi-shbecf 1 tab PO DAILY 04/04/21 [History Last Taken 04/04/21] potassium chloride 20 meq PO DAILY 04/04/21 [History Last Taken 04/19/21] aspirin [Aspir-81] 81 mg PO DAILY 04/20/21 [History Last Taken Unknown] Allergy/AdvReac Type Severity Reaction Status Date / Time bupropion HCl Allergy Anaphylaxis Verified 04/20/21 10:19 [From Wellbutrin] cephalexin monohydrate Allergy Anaphylaxis Verified 04/20/21 10:19 [From Keflex] levofloxacin Allergy Anaphylaxis Verified 04/20/21 10:19 Penicillins [PCN] Allergy Anaphylaxis Verified 04/20/21 10:19 Milk Containing Products AdvReac phlegm Verified 04/20/21 10:19 Family History Father Colon cancer Heart disease other (Denies maternal medical history including cardiac history.) Surgical History (Updated 04/20/21 @ 15:54 by Radha Avery) History of appendectomy History of cholecystectomy History of hysterectomy History of incisional hernia repair Status post hip surgery Social History (Updated 04/20/21 @ 16:05 by Maritza Granados NP, TRANSFORMATION LEAD-C) Smoking Status: Current some day smoker tobacco type: cigarettes alcohol intake: never substance use type: does not use ROS Constitutional Constitutional: Denies change in weight, chills, fatigue, fever(s) or weakness Cardiovascular Cardiovascular: Denies chest pain, edema, lightheadedness, palpitations or syncope Respiratory/Chest Respiratory/Chest: Reports shortness of breath at rest; Denies cough, dyspnea, productive cough or wheezing Gastrointestinal Gastrointestinal: Denies abdominal pain, constipation, diarrhea, nausea or vomiting Genitourinary Genitourinary: Denies burning urination, difficulty urinating, dysuria, hematuria, urinary frequency, urinary incontinence or urinary urgency Musculoskeletal Musculoskeletal: Denies back pain, joint pain or muscle weakness Integumentary Integumentary: Denies erythema, lesions, rash or wounds Neurologic Neurologic: Denies abnormal speech, confusion, dizziness, focal weakness, numbness, paresthesias, seizure-like activity or syncope Psychiatric Psychiatric: Denies anxiety or depression Hematologic/Lymphatic Hematologic/Lymphatic: Denies anemia, easy bleeding or easy bruising Allergic/Immunologic Allergic/Immunologic: Denies hives or asthma Vital Signs Vital Signs Vital Signs: 04/20/21 10:23 04/20/21 10:26 04/20/21 11:08 Temperature 98.3 F Temperature Source Oral Pulse Rate 88 90 Respiratory Rate 20 H 31 H Respiratory Effort Short of Breath Labored Respiratory Depth Normal Respiratory Pattern Normal Tachypnea Blood Pressure 115/58 L Blood Pressure Mean 77 Pulse Ox 95 Oxygen Delivery Method Nasal Cannula Nasal Cannula Oxygen Flow Rate (L/min) 3.5 3.5 04/20/21 12:26 04/20/21 14:21 04/20/21 14:55 Temperature Temperature Source Pulse Rate 83 81 Respiratory Rate 16 18 26 H Respiratory Effort Respiratory Depth Respiratory Pattern Blood Pressure 122/85 H 105/62 Blood Pressure Mean 97 76 Pulse Ox 93 96 81 Oxygen Delivery Method Nasal Cannula Room Air Nasal Cannula Oxygen Flow Rate (L/min) 3 2 04/20/21 14:57 04/20/21 15:27 Temperature 97.4 F L Temperature Source Temporal Pulse Rate 86 87 Respiratory Rate 20 H 24 H Respiratory Effort Respiratory Depth Respiratory Pattern Blood Pressure 106/48 L 113/69 Blood Pressure Mean 67 83 Pulse Ox 95 96 Oxygen Delivery Method Nasal Cannula Nasal Cannula Oxygen Flow Rate (L/min) 5 5 Weight Weight: 136 lb 7.458 oz Body Mass Index (BMI) 24.1 Physical Exam Const alert, oriented x3 and no apparent distress Orientation / Consciousness: awake, oriented to person, oriented to place and oriented to time HEENT normocephalic and moist oral mucous membranes Eyes PERRL, EOMs intact bilaterally and conjunctivae normal Neck no lymphadenopathy Resp normal respiratory effort and clear to auscultation bilaterally Cardio regular rate, regular rhythm and no murmurs Peripheral Pulses: pulses 2+ throughout GI normal to inspection, nondistended, normoactive bowel sounds, non-tender and non-distended Extremity normal to inspection Skin no rashes or lesions noted Lesions: no lesions Rashes: no rashes Trauma: no lacerations or abrasions Neuro CN's II-XII intact bilaterally, no focal motor deficits, no sensory deficits noted and deep tendon reflexes 2+ bilaterally Psych mental status grossly normal and affect normal Results Lab / Micro Data Result Diagrams: 04/20/21 11:36 04/20/21 11:23 Labs: Laboratory Results - last 24 hr 04/20/21 11:23: Sodium 136, Potassium 4.1, Chloride 104, Carbon Dioxide 26.0, Anion Gap 6, BUN 18, Creatinine 0.54 L, Estim Creat Clear Calc 40.83, Est GFR (MDRD) Af Amer 140, Est GFR (MDRD) Non-Af 116, BUN/Creatinine Ratio 33.0 H, Glucose 86, Calcium 8.9, Total Bilirubin 0.30, AST 13 L, ALT 16, Alkaline Phosphatase 92, Troponin I High Sens 5.8, Total Protein 7.4, Albumin 3.1 L, Globulin 4.3 H, Albumin/Globulin Ratio 0.7 L 04/20/21 11:36: WBC 7.9, RBC 4.82, Hgb 13.6, Hct 43.4, MCV 90.0, MCH 28.2, MCHC 31.3 L, RDW Std Deviation 55.8 H, RDW Coeff of Jacinto 16.9 H, Plt Count 396, MPV 9.2, Immature Gran % (Auto) 0.100, Neut % (Auto) 70.7 H, Lymph % (Auto) 17.0 L, Lares % (Auto) 7.0, Eos % (Auto) 4.7, Baso % (Auto) 0.5, Absolute Neuts (auto) 5.6, Absolute Lymphs (auto) 1.34, Nucleated RBC % 0 Radiology Impression Chest CTA 04/20/21 12:06 IMPRESSION: Multiple pulmonary emboli in the lower lobes. Diffuse emphysematous changes with scarring and possible atelectasis at the lung bases with 3 small pleural-based nodules in the medial posterior aspect of the right lower lobe. Follow-up CT scan in 6 months is recommended for further evaluation. Electronically Signed: Mao Rodgers MD at 12:52 EDT , Service support , Assessment & Plan Assessment/Plan (1) Pulmonary emboli: PLAN: 1. Acute on chronic hypoxic respiratory failure secondary to acute PE with underlying chronic COPD-therapeutic Lovenox with transition to Eliquis acute dosing in a.m. Continue supplement oxygen to maintain O2 sat above 90%. Albuterol/DuoNeb aerosols. 2. Recent left hip fracture 03/26/2021 status post hip replacement at [facility]-declined rehab at discharge. PT/OT. Case management consult. 3. Anxiety, depression-on bupropion, citalopram. 4. Restless leg syndrome-on Requip. 5. GERD-continue famotidine. DVT prophylaxis-lovenox, transition to Eliquis This patient was seen by MILES Garcia under the supervision of Dr. Art. Documented by User: Dr. Abbe Art, 04/20/21 17:21 HPI - General General Date of Admission: 04/20/21 PFS Medical History Anxiety Bleeding disorder cataracts COPD (chronic obstructive pulmonary disease) Gout High cholesterol Hx of gallstones Migraines Neuropathy On home O2 Osteoarthritis Osteoporosis Sleep apnea Smoker Home Medications furosemide 40 mg PO DAILY 09/19/16 [History Last Taken 04/19/21] gabapentin 300 mg PO BIDCM 09/19/16 [History Last Taken 04/19/21] roflumilast 500 mcg PO DAILY 09/19/16 [History Last Taken 04/19/21] ropinirole 0.5 mg PO QHS 09/19/16 [History Last Taken 04/19/21] alendronate 70 mg PO WE 10/24/18 [History Last Taken 04/19/21] famotidine 40 mg PO DAILY 10/24/18 [History Last Taken 04/19/21] Breo Ellipta 1 inh INHALATION BID 04/04/21 [History Last Taken 04/19/21] Incruse Ellipta 1 inh INHALATION DAILY 04/04/21 [History Last Taken 04/19/21] albuterol sulfate 1.25 mg INHALATION Q4H 04/04/21 [History Last Taken 04/03/21] bupropion HCl 150 mg PO BID 04/04/21 [History Last Taken 04/19/21] citalopram 20 mg PO QHS 04/04/21 [History Last Taken 04/19/21] cyanocobalamin (vitamin B-12) [Vitamin B-12] 2,000 mcg PO DAILY 04/04/21 [History Last Taken 04/04/21] loratadine 10 mg PO DAILY 04/04/21 [History Last Taken 04/04/21] czzxcawsmmkp-ewihiezz-ynsyaj 1 tab PO DAILY 04/04/21 [History Last Taken 04/04/21] potassium chloride 20 meq PO DAILY 04/04/21 [History Last Taken 04/19/21] aspirin [Aspir-81] 81 mg PO DAILY 04/20/21 [History Last Taken Unknown] Allergy/AdvReac Type Severity Reaction Status Date / Time bupropion HCl Allergy Anaphylaxis Verified 04/20/21 10:19 [From Wellbutrin] cephalexin monohydrate Allergy Anaphylaxis Verified 04/20/21 10:19 [From Keflex] levofloxacin Allergy Anaphylaxis Verified 04/20/21 10:19 Penicillins [PCN] Allergy Anaphylaxis Verified 04/20/21 10:19 Milk Containing Products AdvReac phlegm Verified 04/20/21 10:19 Family History Father Colon cancer Heart disease Surgical History (Updated 04/20/21 @ 15:54 by Radha Avery) History of appendectomy History of cholecystectomy History of hysterectomy History of incisional hernia repair Status post hip surgery Social History (Updated 04/20/21 @ 16:05 by Maritza Granados TRANSFORMATION LEAD, TRANSFORMATION LEAD-C) Smoking Status: Current some day smoker tobacco type: cigarettes alcohol intake: never substance use type: does not use Results Lab / Micro Data Result Diagrams: 04/20/21 11:36 04/20/21 11:23 Charges/Coding Addendum Addendum: Patient was seen and examined today independently of Maritza Granados, she came to the emergency room at [facility] with complaints of shortness of breath and she was instructed to come to the emergency room due to outpatient labs which she had drawn by her PCP which indicated she might have a VTE. Work-up in the emergency room included a CTA of the chest which showed evidence of pulmonary emboli which were located in the lower lobes. In addition there was noted to be diffuse emphysematous changes with scarring and atelect asis. Patient states she has home O2 and uses it at 2-1/2 to 3 L continuously but she does turn it up if necessary. On examination she appeared in good health and spirits, she does not appear to be in any distress. Vital signs as documented. Skin warm and dry and without overt rashes. Neck without JVD, thyroid appears normal, trachea is midline, neck is supple. Lungs clear, decreased breath sounds are noted bilaterally. Heart exam notable for regular rhythm, normal sounds and absence of murmurs, rubs or gallops. Abdomen unremarkable and without evidence of organomegaly, masses, or abdominal aortic enlargement, bowel sounds are present in all 4 quadrants, no abdominal tenderness was noted. Extremities nonedematous, no cyanosis was noted, no clubbing was noted. Neuro: Cranial nerves II through XII are grossly intact, no focal motor deficits were noted, sensation to light touch and pinpr ick is intact, motor exam 5/5 throughout. Psych: Patient is alert and oriented x3, she does not appear anxious or depressed, she does not appear agitated. Patient was placed in observation status on PCU, she will receive Lovenox subcu tonight and will be transitioned over to either Eliquis or Xarelto tomorrow. I have reviewed Maritza Granados's history and physical including her medical assessment and plan of care and endorse it. Visit Charges OBSV E&M: [id number] Initial observation care L3
[2021-04-20] MEDS: Enoxaparin 80 MG/0.8 ML Syringe 70 MG SC (16:47)
[2021-04-20] MEDS: Gabapentin 300 MG Capsule PO (16:47)
[2021-04-20] MEDS: Albuterol 2.5 MG/3 ML VIAL.NEB. INHALATION (19:42)
[2021-04-20] MEDS: 0.9% Saline Lock 10 ML Syringe IV (22:41)
[2021-04-20] MEDS: buPROPion (SR) 150 MG Tablet.SA PO (22:41)
[2021-04-20] MEDS: Citalopram 20 MG Tablet PO (22:41)
[2021-04-20] MEDS: Pramipexole Di-HCl 0.25 MG Tablet PO (22:41)
[2021-04-21] VITALS (13 sets, daily range): BP systolic 106–115; BP diastolic 57–72; PULSE 85–112; RESP 16–20; TEMP 36.7–36.8; O2SAT 86–95
[2021-04-21] MEDS: Albuterol 2.5 MG/3 ML VIAL.NEB. INHALATION ×3 (01:10→10:50)
--- NOTE | 2021-04-21 07:44 | CASEMGMT ---
Addendum entered by Allyson Garza 04/21/21 13:07: Call back from [facility] and pt is active with them for SN, PT/OT. They are aware of pt OBS status and discharge today, voice understanding. Jennyfer HENDRICKS CM Addendum entered by Allyson Garza 04/21/21 09:36: Message left with [facility] to see if pt is still active with them. CM to follow. Jennyfer HENDRICKS CM Original Note: This ELADIO DAWSON spoke with Sharron at [facility] and pt's home order for oxygen is 2L nc continuous and pt has a new concentrator at home(replaced 04/03/21) and a portable concentrator. Pt will need to be tested on 2L at rest and 2L with ambulation prior to discharge. CM to follow. Jennyfer HENDRICKS CM
[2021-04-21] MEDS: Furosemide 40 MG Tablet PO (08:17)
[2021-04-21] MEDS: buPROPion (SR) 150 MG Tablet.SA PO (08:17)
[2021-04-21] MEDS: APIXABAN 5 MG TABLET 10 MG PO (08:17)
[2021-04-21] MEDS: Famotidine 20 MG Tablet 40 MG PO (08:17)
[2021-04-21] MEDS: Aspirin E.C. 81 MG Tablet PO (08:18)
[2021-04-21] MEDS: Potassium Chloride Oral Tablet 20 MEQ PO (08:18)
[2021-04-21] MEDS: Gabapentin 300 MG Capsule PO (08:18)
--- NOTE | 2021-04-21 10:57 | CASEMGMT ---
Pt qualifies for 3L at rest and 6L w/ ambulation and new order faxed to [facility]. Call to [facility] to notify of new order, oxygen need, voices understanding. CM to follow. Jennyfer HENDRICKS CM
--- NOTE | 2021-04-21 11:53 | CASEMGMT ---
ZAIDA called Nata Cao with [facility] and let her know patient is in the hospital. She is patient's special education case manager. ZAIDA will let her know when patient is being discharged and will fax her d/c instructions. Sharifa KONG
--- NOTE | 2021-04-21 12:48 | PCM.DC ---
Discharge Instructions Diet Discharge Diet: No restrictions Activity Discharge Activity: Return to Normal Activity Dressing / Incision Call your doctor if you observe: Shortness of breath, Dizziness and Chest pain Follow Up Care Test Results: Test results from this visit will be discussed in further detail at your follow-up appointment, if applicable. Discharge Plan Admission Admit Date/Time: 04/20/21 15:24 Primary Reason for Your Visit: Pulmonary medicine Attending Provider: Abbe Art Primary Care Provider: Shayne Winter Chi Discharge Orders/Prescriptions Prescriptions: New apixaban 5 mg tablet 10 mg PO BID Qty: 69 RF: 0 Continued gabapentin 300 MG capsule 300 mg PO BIDCM RF: 0 ropinirole 0.5 MG tablet 0.5 mg PO QHS RF: 0 furosemide 40 MG tablet 40 mg PO DAILY RF: 0 roflumilast 500 MCG tablet 500 mcg PO DAILY RF: 0 famotidine 40 tablet 40 mg PO DAILY RF: 0 alendronate 70 tablet 70 mg PO WE RF: 0 Incruse Ellipta 62.5 mcg/actuation blister with device 1 inh INHALATION DAILY RF: 0 tfxvmgkqjhgd-ekdenoyl-suleng Tablet 1 tab PO DAILY RF: 0 bupropion HCl 150 mg tablet sustained-release 12 hr 150 mg PO BID RF: 0 albuterol sulfate 1.25 mg/3 mL Solution For Nebulization 1.25 mg INHALATION Q4H RF: 0 citalopram 20 mg tablet 20 mg PO QHS RF: 0 potassium chloride 20 mEq tablet,ER particles/crystals 20 meq PO DAILY RF: 0 cyanocobalamin (vitamin B-12) [Vitamin B-12] 2,000 mcg Tablet Extended Release 2,000 mcg PO DAILY RF: 0 loratadine 10 mg Tablet 10 mg PO DAILY RF: 0 Breo Ellipta 200-25 mcg/dose blister with device 1 inh INHALATION BID RF: 0 aspirin 81 mg Tablet,Delayed Release (Dr/Ec) 81 mg PO DAILY RF: 0 Referrals / Follow Up: Geovanny Pearl MD [STAFF PHYSICIAN] - See Referral Note (As scheduled for orthopedic follow-up) Shayne Winter Chi, MD [Primary Care Provider] - In 1 Week Disposition Disposition (needs filled in before D/C Order can be placed): Home, Self Care
--- NOTE | 2021-04-21 12:57 | DS.PCM_ITS ---
Documented by User: Maritza Granados NP, MEMORIAL ADVISER-C 04/21/21 13:01 Providers Date of Admission: 04/20/21 Date of Discharge: 04/21/21 Primary Care Physician: Dr. Shayne Winter MD Reason For Visit: PE / HYPOXIA Diagnosis Discharge Diagnosis (1) Pulmonary emboli: Status: Acute Code(s): I26.99 - Other pulmonary embolism without acute cor pulmonale Medications at Discharge Home Medications furosemide 40 mg PO DAILY 09/19/16 gabapentin 300 mg PO BIDCM 09/19/16 roflumilast 500 mcg PO DAILY 09/19/16 ropinirole 0.5 mg PO QHS 09/19/16 alendronate 70 mg PO WE 10/24/18 famotidine 40 mg PO DAILY 10/24/18 Breo Ellipta 1 inh INHALATION BID 04/04/21 Incruse Ellipta 1 inh INHALATION DAILY 04/04/21 albuterol sulfate 1.25 mg INHALATION Q4H 04/04/21 bupropion HCl 150 mg PO BID 04/04/21 citalopram 20 mg PO QHS 04/04/21 cyanocobalamin (vitamin B-12) [Vitamin B-12] 2,000 mcg PO DAILY 04/04/21 loratadine 10 mg PO DAILY 04/04/21 xcjhjguwnrji-helrytso-zsvoel 1 tab PO DAILY 04/04/21 potassium chloride 20 meq PO DAILY 04/04/21 aspirin 81 mg PO DAILY 04/20/21 apixaban 10 mg PO BID #69 tab 04/21/21 Hospital Course Operations None Procedures None Summary of Care Provided Minutes Spent on Discharge: 35 Hospital Course: Patient is a 75-year-old female admitted 04/20/2021 due to shortness of breath. 1. Acute PE with chronic hypoxic respiratory failure secondary to underlying chronic COPD-CTA at admission with multiple pulmonary emboli in the lower lobes. Therapeutic Lovenox with transition to Eliquis acute dosing at discharge. Patient has chronic oxygen at home, requiring slightly above previous requirements. She is ambulatory in the home. Continue supplement oxygen to maintain O2 at above 90%. Follow-up with PCP in 1 week. CTA also mentions 3 small pleural-based nodules in the medial posterior aspect of the right lower lobe, recommend follow-up CT scan in 6 months. 2. Recent left hip fracture 03/26/2021 status post hip replacement at [facility]-declined rehab at discharge. Follow-up with orthopedic medicine as scheduled. Home health at discharge. 3. Anxiety, depression-on bupropion, citalopram. 4. Restless leg syndrome-on Requip. 5. GERD-continue famotidine. Physical Exam Const alert, oriented x3 and no apparent distress Orientation / Consciousness: awake, oriented to person, oriented to place and oriented to time HEENT normocephalic and moist oral mucous membranes Eyes PERRL, EOMs intact bilaterally and conjunctivae normal Neck no lymphadenopathy Resp normal respiratory effort and clear to auscultation bilaterally Cardio regular rate, regular rhythm and no murmurs Peripheral Pulses: pulses 2+ throughout GI normal to inspection, nondistended, normoactive bowel sounds, non-tender and non-distended Extremity normal to inspection Skin no rashes or lesions noted Lesions: no lesions Rashes: no rashes Trauma: no lacerations or abrasions Neuro CN's II-XII intact bilaterally, no focal motor deficits, no sensory deficits noted and deep tendon reflexes 2+ bilaterally Psych mental status grossly normal and affect normal Patient seen and examined prior to discharge. Physical assessment as noted above. Patient is stable for discharge with follow up recommendations as noted above. This patient was seen by MILES Garcia under the supervision of Dr. Art. Weight / BMI Weight Weight: 136 lb 7.458 oz Body Mass Index (BMI) 24.1 ABG / Lab / Microbiology Data Result Diagrams: 04/20/21 11:36 04/20/21 11:23 D/C Instructions Discharge Diet: No restrictions Call your doctor if you observe: Shortness of breath, Dizziness and Chest pain Meaningful Use Info Meaningful Use Diagnoses (Choose all that apply): VTE VTE Anticoag overlap given w/in hospital stay or rx'd at dc?: Yes Pt receive overlap for 5 days?: Yes Discharge Plan Admission Admit Date/Time: 04/20/21 15:24 Primary Reason for Your Visit: Pulmonary medicine Attending Provider: Abbe Art Primary Care Provider: Shayne Winter Chi Discharge Orders/Prescriptions Prescriptions: New apixaban 5 mg tablet 10 mg PO BID Qty: 69 RF: 0 Continued gabapentin 300 MG capsule 300 mg PO BIDCM RF: 0 ropinirole 0.5 MG tablet 0.5 mg PO QHS RF: 0 furosemide 40 MG tablet 40 mg PO DAILY RF: 0 roflumilast 500 MCG tablet 500 mcg PO DAILY RF: 0 famotidine 40 tablet 40 mg PO DAILY RF: 0 alendronate 70 tablet 70 mg PO WE RF: 0 Incruse Ellipta 62.5 mcg/actuation blister with device 1 inh INHALATION DAILY RF: 0 ospovprlbped-bydnzbyu-fbwufe Tablet 1 tab PO DAILY RF: 0 bupropion HCl 150 mg tablet sustained-release 12 hr 150 mg PO BID RF: 0 albuterol sulfate 1.25 mg/3 mL Solution For Nebulization 1.25 mg INHALATION Q4H RF: 0 citalopram 20 mg tablet 20 mg PO QHS RF: 0 potassium chloride 20 mEq tablet,ER particles/crystals 20 meq PO DAILY RF: 0 cyanocobalamin (vitamin B-12) [Vitamin B-12] 2,000 mcg Tablet Extended Release 2,000 mcg PO DAILY RF: 0 loratadine 10 mg Tablet 10 mg PO DAILY RF: 0 Breo Ellipta 200-25 mcg/dose blister with device 1 inh INHALATION BID RF: 0 aspirin 81 mg Tablet,Delayed Release (Dr/Ec) 81 mg PO DAILY RF: 0 Referrals / Follow Up: Geovanny Pearl MD [STAFF PHYSICIAN] - See Referral Note (As scheduled for orthopedic follow-up) Shayne Winter Chi, MD [Primary Care Provider] - In 1 Week Disposition Disposition (needs filled in before D/C Order can be placed): Home, Self Care Documented by User: Dr. Abbe Art DO 04/22/21 08:34 Providers Date of Admission: 04/20/21 Reason For Visit: PE / HYPOXIA Medications at Discharge Home Medications furosemide 40 mg PO DAILY 09/19/16 gabapentin 300 mg PO BIDCM 09/19/16 roflumilast 500 mcg PO DAILY 09/19/16 ropinirole 0.5 mg PO QHS 09/19/16 alendronate 70 mg PO WE 10/24/18 famotidine 40 mg PO DAILY 10/24/18 Breo Ellipta 1 inh INHALATION BID 04/04/21 Incruse Ellipta 1 inh INHALATION DAILY 04/04/21 albuterol sulfate 1.25 mg INHALATION Q4H 04/04/21 bupropion HCl 150 mg PO BID 04/04/21 citalopram 20 mg PO QHS 04/04/21 cyanocobalamin (vitamin B-12) [Vitamin B-12] 2,000 mcg PO DAILY 04/04/21 loratadine 10 mg PO DAILY 04/04/21 vilsipzluagz-nhewrtdu-uuglal 1 tab PO DAILY 04/04/21 potassium chloride 20 meq PO DAILY 04/04/21 aspirin 81 mg PO DAILY 04/20/21 apixaban 10 mg PO BID #69 tab 04/21/21 ABG / Lab / Microbiology Data Result Diagrams: 04/20/21 11:36 04/20/21 11:23 Discharge Plan Admission Admit Date/Time: 04/20/21 15:24 Primary Reason for Your Visit: Pulmonary medicine Attending Provider: Abbe Art Primary Care Provider: Shayne Winter Chi Discharge Orders/Prescriptions Prescriptions: New apixaban 5 mg tablet 10 mg PO BID Qty: 69 RF: 0 Continued gabapentin 300 MG capsule 300 mg PO BIDCM RF: 0 ropinirole 0.5 MG tablet 0.5 mg PO QHS RF: 0 furosemide 40 MG tablet 40 mg PO DAILY RF: 0 roflumilast 500 MCG tablet 500 mcg PO DAILY RF: 0 famotidine 40 tablet 40 mg PO DAILY RF: 0 alendronate 70 tablet 70 mg PO WE RF: 0 Incruse Ellipta 62.5 mcg/actuation blister with device 1 inh INHALATION DAILY RF: 0 pzqgnnefewph-vqtrrucd-afwcgb Tablet 1 tab PO DAILY RF: 0 bupropion HCl 150 mg tablet sustained-release 12 hr 150 mg PO BID RF: 0 albuterol sulfate 1.25 mg/3 mL Solution For Nebulization 1.25 mg INHALATION Q4H RF: 0 citalopram 20 mg tablet 20 mg PO QHS RF: 0 potassium chloride 20 mEq tablet,ER particles/crystals 20 meq PO DAILY RF: 0 cyanocobalamin (vitamin B-12) [Vitamin B-12] 2,000 mcg Tablet Extended Release 2,000 mcg PO DAILY RF: 0 loratadine 10 mg Tablet 10 mg PO DAILY RF: 0 Breo Ellipta 200-25 mcg/dose blister with device 1 inh INHALATION BID RF: 0 aspirin 81 mg Tablet,Delayed Release (Dr/Ec) 81 mg PO DAILY RF: 0 Referrals / Follow Up: Geovanny Pearl MD [STAFF PHYSICIAN] - See Referral Note (As scheduled for o rthopedic follow-up) Shayne Winter Chi, MD [Primary Care Provider] - In 1 Week Disposition Disposition (needs filled in before D/C Order can be placed): Home, Self Care Charges/Coding Addendum Addendum: Patient was seen and examined independently of Maritza Granados today, she has no complaints of increased shortness of breath or chest pain today. Patient's O2 requirement on ambulation today was 6 L. On examination she appeared in good health and spirits, she does not appear to be in any distress. Vital signs as documented. Skin warm and dry and without overt rashes. Neck without JVD, thyroid appears normal, trachea is midline, neck is supple. Lungs clear, decreased breath sounds are noted bilaterally. Heart exam notable for regular rhythm, normal sounds and absence of murmurs, rubs or gallops. Abdomen unremarkable and without evidence of organomegaly, masses, or abdominal aortic enlargement, bowel sounds are present in all 4 quadrants, no abdominal tenderness was noted. Extremities nonedematous, no cyanosis was noted, no clubbing was noted. Neuro: Cranial nerves II through XII are grossly intact, no focal motor deficits were noted, sensation to light touch and pinprick is intact, motor exam 5/5 throughout. Psych: Patient is alert and oriented x3, she does not appear anxious or depressed, she does not appear agitated. Patient appears stable for discharge today, I have reviewed Maritzaadriana Granados's discharge summary including her medical assessment and plan of care and endorse it. Visit Charges OBSV E&M: 94212 Observation care discharge
--- NOTE | 2021-04-21 14:50 | CASEMGMT ---
ZAIDA faxed d/c instructions to Nata Cao. Sharifa Wilburn ARCHERY EQUIPMENT REPAIRER LUANN
--- NOTE | 2021-04-21 15:36 | NURSING ---
pt dressed and ready for dc. son went to go [facility]erry [facility]er med at [facility]. all belongings packed up and ready. pt in chair with no needs and updated on wait.
== END 2021-04-21 16:52 | disposition home or self-care (01) ==
LOC: ED 15:22 → PCU 04-21 06:37
PROVIDERS: Admitting Provider Internal Medicine; Emergency Provider Emergency Medicine; PCP Family Medicine Geriatric Medicine; Visit Provider Internal Medicine
DX: I26.99 Other pulmonary embolism without acute cor pulmonale (principal); M19.90 Unspecified osteoarthritis, unspecified site; G62.9 Polyneuropathy, unspecified; E78.00 Pure hypercholesterolemia, unspecified; G47.30 Sleep apnea, unspecified; F17.210 Nicotine dependence, cigarettes, uncomplicated; M81.0 Age-related osteoporosis without current pathological fracture; K21.9 Gastro-esophageal reflux disease without esophagitis; G25.81 Restless legs syndrome; J44.9 Chronic obstructive pulmonary disease, unspecified; J96.21 Acute and chronic respiratory failure with hypoxia; F41.9 Anxiety disorder, unspecified; F32.9 Major depressive disorder, single episode, unspecified; Z99.81 Dependence on supplemental oxygen; Z79.899 Other long term (current) drug therapy; Z79.51 Long term (current) use of inhaled steroids; Z96.642 Presence of left artificial hip joint
CPT/HCPCS: 36415; 71275; 80053; 84484; 85025; 93005; 94640; 96372; 97162; 97166; 97802; 99218; 99285; Q9967; A4216; G0378

== ENCOUNTER 2023-05-13 17:36 | Inpatient (IN) | payer MEDICARE, MEDICAID, SELFPAY ==
[2023-05-13] VITALS (17 sets, daily range): BP systolic 93–129; BP diastolic 51–73; PULSE 78–118; RESP 12–31; TEMP 36.4–37.7; O2SAT 70–100; BMI 17.9
--- NOTE | 2023-05-13 17:45 | ED.RN ---
HARD CHART TAKEN INTO 'S OFFICE AT THIS TIME. DR. BRITTON NOTIFIED OF PTS O2 SAT OF 70% ON 5L NC AND PTS CHART MOVED TO FRONT OF THE RACK. PHYSICIAN VERBALIZES OK.
[2023-05-13 18:14] LABS: Blood Gas Specimen Type VEN; VBG BASE EXCESS 14 mmol/L (-1.0-3.5); VBG Bicarbonate 41 mmol/L (22-26); VBG PO2 28 mmHg (25-40); VBG SO2 38 % (50-70); VBG TCO2 44 mmol/L (23-33); VBG pCO2 100.6 mmHg (41-51); VBG pH 7.22 (7.32-7.42)
--- NOTE | 2023-05-13 18:16 | ED.VIS.DYS ---
HPI History of Present Illness Chief Complaint: Shortness of Breath PFSH PFSH Medical History Anxiety Bleeding disorder cataracts COPD (chronic obstructive pulmonary disease) Gout High cholesterol Hx of gallstones Migraines Neuropathy On home O2 Osteoarthritis Osteoporosis Sleep apnea Smoker Home Medications furosemide 40 mg tablet 40 mg PO DAILY diuretic 09/19/16 [History Last Taken 04/19/21] gabapentin 300 mg capsule 300 mg PO BIDCM neuropathy 09/19/16 [History Last Taken 04/19/21] roflumilast 500 mcg tablet 500 mcg PO DAILY COPD 09/19/16 [History Last Taken 04/19/21] ropinirole 0.5 mg tablet 0.5 mg PO QHS restless legs 09/19/16 [History Last Taken 04/19/21] alendronate 70 mg tablet 70 mg PO WE osteoporosis 10/24/18 [History Last Taken 04/19/21] famotidine 40 mg tablet 40 mg PO DAILY GERD 10/24/18 [History Last Taken 04/19/21] albuterol sulfate 1.25 mg/3 mL solution for nebulization 1.25 mg inhalation Q4H sob 04/04/21 [History Last Taken 04/03/21] bupropion HCl 150 mg tablet,12 hr sustained-release 150 mg PO BID depression 04/04/21 [History Last Taken 04/19/21] citalopram 20 mg tablet 20 mg PO QHS mood 04/04/21 [History Last Taken 04/19/21] cyanocobalamin (vitamin B-12) 2,000 mcg tablet,extended release (Vitamin B-12 ER) 2,000 mcg PO DAILY supplement 04/04/21 [History Last Taken 04/04/21] fluticasone furoate 200 mcg-vilanterol 25 mcg/dose inhalation powder (Breo Ellipta) 1 inh inhalation BID copd 04/04/21 [History Last Taken 04/19/21] loratadine 10 mg tablet 10 mg PO DAILY allergies 04/04/21 [History Last Taken 04/04/21] bmwvrgkimeue-afrroqxw-nqnkwr tablet 1 tab PO DAILY supplement 04/04/21 [History Last Taken 04/04/21] potassium chloride 20 mEq tablet,extended release(part/cryst) 20 meq PO DAILY supplement 04/04/21 [History Last Taken 04/19/21] umeclidinium 62.5 mcg/actuation blister powder for inhalation (Incruse Ellipta) 1 inh inhalation DAILY copd 04/04/21 [History Last Taken 04/19/21] aspirin 81 mg tablet,delayed release 81 mg PO DAILY heart health 04/20/21 [History Last Taken Unknown] apixaban 5 mg tablet 10 mg (2 x 5 mg) PO BID #69 tabs 04/21/21 [Rx Last Taken Unknown] mirtazapine 7.5 mg QHS 10/05/21 [History Last Taken Unknown] benzonatate 100 mg capsule mg PO PRN cough 05/13/23 [History Last Taken Unknown] famotidine 20 mg tablet mg PO DAILY GERD 05/13/23 [History Last Taken Unknown] lorazepam 0.5 mg tablet mg PO PRN agitation 05/13/23 [History Last Taken Unknown] Allergy/AdvReac Type Severity Reaction Status Date / Time bupropion HCl Allergy Anaphylaxis Verified 05/13/23 17:38 [From Wellbutrin] cephalexin monohydrate Allergy Anaphylaxis Verified 05/13/23 17:38 [From Keflex] levofloxacin Allergy Anaphylaxis Verified 05/13/23 17:38 Penicillins [PCN] Allergy Anaphylaxis Verified 05/13/23 17:38 Milk Containing Products AdvReac phlegm Verified 05/13/23 17:38 (Dairy) [Milk Containing Products] Family History Father Colon cancer Heart disease Surgical History (Updated 04/20/21 @ 15:54 by Radha Avery) History of appendectomy History of cholecystectomy History of hysterectomy History of incisional hernia repair Status post hip surgery Social History (Updated 04/20/21 @ 16:05 by Maritza Granados NP, INSTRUCTIONAL LEADER-C) Smoking Status: Current some day smoker tobacco type: cigarettes alcohol intake: never substance use type: does not use EXAM Physical Exam Const Vital Signs: 05/13/23 17:38 05/13/23 17:41 05/13/23 17:38 Temperature 97.5 F L Temperature Source Temporal Pulse Rate 107 H 97 Respiratory Rate 27 H 24 H Respiratory Effort Short of Breath Labored Accessory Muscle Use Respiratory Pattern Tachypnea Blood Pressure 129/73 H 102/67 Blood Pressure Mean 91 78 Pulse Ox 70 97 Oxygen Delivery Method Nasal Cannula Venturi Mask Venturi Mask Oxygen Flow Rate (L/min) 5 Fraction of Inspired Oxygen (FIO2) 50 50 05/13/23 18:28 05/13/23 18:28 05/13/23 18:32 Temperature Temperature Source Pulse Rate 118 H Respiratory Rate 31 H 28 H Respiratory Effort Respiratory Pattern Blood Pressure Blood Pressure Mean Pulse Ox 97 97 Oxygen Delivery Method Bi-pap Bi-pap Oxygen Flow Rate (L/min) Fraction of Inspired Oxygen (FIO2) 05/13/23 18:15 05/13/23 18:53 05/13/23 18:50 Temperature Temperature Source Pulse Rate 106 H 98 106 H Respiratory Rate 29 H 17 18 Respiratory Effort Respiratory Pattern Blood Pressure 93/58 L Blood Pressure Mean 69 Pulse Ox 90 96 99 Oxygen Delivery Method Bi-pap Oxygen Flow Rate (L/min) Fraction of Inspired Oxygen (FIO2) 30 100 MDM MDM MDM Narrative Medical decision making narrative: HISTORY OF PRESENT ILLNESS: 78-year-old female here with shortness of breath, cough and cold symptoms. She has history of COPD. In triage she was noted to be 70% on 5 L. She was placed on a Ventimask. Patient cannot provide reliable history as she was altered and short of breath. Per her son he is she is not having a progressive decline over last month or so more recently complaining of shortness of breath. Per nursing and EMS patient came in with chief complaint of shortness of breath. REVIEW OF SYSTEMS: The patient is altered does not provide a reliable review of systems. PHYSICAL EXAM: Nursing triage notes reviewed, Vital signs reviewed Constitutional: please see mdm HENT: MMM Eyes: Pupils equal round and reactive to light, Extraocular muscles intact Neck: No stridor, no JVD, full neck ROM Lungs: Tachypnea, diffuse wheezing, poor air movement, prolonged expiratory phase, severe respiratory distress Heart: Regular rate and rhythm, No murmurs, No rubs and No gallops, 2+ distal pulses (radial, femoral, posterior tibial) in all extremities Abdomen: Soft, there is no tenderness, rigidity, rebound or guarding, no obvious peritoneal signs, no palpable pulsatile abdominal masses, no auscultated abdominal bruit : No CVAT Extremities: No edema Neuro: No focal neurological deficits, cranial nerves II through XII intact, 5/5 strength in all extremities. Intact sensation to light touch in all extremities, 2+ reflexes bilateral patella tendons. Normal gait. No ataxia. Skin: No rash or lesions noted MEDICAL DECISION MAKING: Chief Complaint: Shortness of breath External records reviewed: Imaging reviewed, CT of the chest from February 2021 shows multiple pulmonary emboli in the lower lobes Factors affecting care: COPD, sleep apnea, PE on Eliquis Social determinants of health: Elderly History obtained from others: EMS, son Consults: Internal medicine, critical care ALL IMAGES (IF OBTAINED) HAVE BEEN PERSONALLY REVIEWED AND INTERPRETED BY MYSELF. EKG with sinus tachycardia, normal axis, normal intervals, no STEMI MDM Narrative: Patient was initially tachycardic, tachypneic with BiPAP mask intermittently pulling at the mask, she was somnolent, oriented to person and place but not to time. This is different than her baseline per her son who is at the bedside as well. Lungs had diffuse wheezing no obvious rales she had no lower extremity edema concern for severe COPD exacerbation. Stat VBG was obtained and showed respiratory acidosis with a CO2 of 100.6. A shared decision-making discussion undertaken with the patient's son her power of traffic law attorney. Discussed risk and benefits of intubation versus delaying treatment. Son stated that intubation is consistent with the patient's wishes. Given elevated CO2 altered mental status and concern for imminent airway compromise patient was intubated. Please see below procedure note. I also obtained labs, images to further elucidate the etiology of the patient's complaints. Labs images were remarkable for no significant anemia, no evidence of leukocytosis, BMP without significant electrolyte abnormalities, no JIMMY, troponin without elevation suggestive of myocardial ischemia, urine without evidence of infection. Patient was sedated maintained on invasive positive pressure ventilation. She admitted to the intensive care unit under Dr. Anne for ongoing ventilatory management and monitoring. Intubation procedure note: The procedure was performed by myself. Indications: CO2 retention, altered mental status, acute respiratory failure Procedure Description: Patient was preoxygenated with BiPAP, video laryngoscope, as floor hyperventilated blade was used with direct visualization of the cords, grade 1 view, 1 attempt, no immediate complications. Post-Procedure Assessment: Tracheal intubation was confirmed with breath sounds auscultated equally bilaterally; appropriate color change with end tidal CO2 detector and waveform capnography. The patient tolerated the procedure well with no immediate complications. The patient and/or family, caregivers express understanding. The patient and/or family, caregivers agrees with the plan. Shared decision making: I will have a discussion with the patient and or visitors regarding risk/benefits of further testing or admission. They will be made aware of of the risk/benefits inherent in this decision they will be given the opportunity to voice understanding. Total critical care time today provided was at least 60 minutes. This excludes separately billable procedures. Critical care time (if documented) is secondary to the patient having high probability of clinically significant/life threatening deterioration in the patient's condition which required my urgent intervention. Lab Data Labs: Laboratory Results - last 24 hr 05/13/23 05/13/23 18:12 18:20 WBC 8.5 RBC 4.06 L Hgb 10.5 L Hct 36.7 L MCV 90.4 MCH 25.9 L MCHC 28.6 L RDW Std Deviation 58.4 H RDW Coeff of Jacinto 17.7 H Plt Count 237 MPV 10.2 Immature Gran % (Auto) 0.400 Neut % (Auto) 81.4 H Lymph % (Auto) 10.2 L [place] % (Auto) 6.7 Eos % (Auto) 0.9 Baso % (Auto) 0.4 Absolute Neuts (auto) 7.0 Absolute Lymphs (auto) 0.87 Nucleated RBC % 0 Sodium 140 Potassium 4.2 Chloride 98 Carbon Dioxide 43.0 H Anion Gap -1 L BUN 9 Creatinine 0.38 L Estim Creat Clear Calc 34.06 Est GFR (MDRD) Af Amer 213 Est GFR (MDRD) Non-Af 176 BUN/Creatinine Ratio 23.8 H Glucose 108 H Lactic Acid 0.6 Calcium 9.1 Iron 37 L TIBC 322 Iron Saturation 11.5 L Ferritin 14 Troponin I High Sens 8 B-Natriuretic Peptide 29.5 Urine Color Yellow Urine Clarity Clear Urine pH 6.0 Ur Specific Anabel 1.025 Urine Protein 15 H Urine Glucose (UA) Normal Urine Ketones 50 H Urine Occult Blood 25 H Urine Nitrite Negative Urine Bilirubin Negative Urine Urobilinogen Normal Ur Leukocyte Esterase Negative Urine RBC 0-5 SEEN Urine WBC 0-5 SEEN Ur Squamous Epith Cells 0 SEEN Urine Bacteria 0 SEEN Urine Mucus 0 SEEN ABG Data ABG results: ABG 05/13/23 18:10 Specimen Type DRAGAN VBG pH 7.22 L VBG pO2 28 VBG HCO3 41 H VBG Total CO2 44 H VBG O2 Sat (Calc) 38 L VBG Base Excess 14 H POC Mix VBG pCO2 Pt Tmp 100.6 H* Liter Flow 4.0 Crit Call To/Read Back Yes Radiography Diagnostic Testing: Clinical Impression(s) from Imaging Studies Chest X-Ray 05/13/23 18:50 IMPRESSION: Support devices as above. Hyperinflation without radiographic evidence of acute cardiopulmonary disease. Electronically Signed: Elie Mustafa MD at 19:42 EDT , Chest CTA 05/13/23 19:27 IMPRESSION: Normal CTA chest examination, without a demonstrated pulmonary embolism or arterial dissection. Patchy bibasilar infiltrates with tree-in-bud formations. Findings suspicious for infection. Stable nodules in the right apex and right upper lobe. This represents a two-year period of stability. No further follow-up recommended. Electronically Signed: Elie Mustafa MD at 21:44 EDT , Discharge Plan Disposition Disposition: Acute Care Hospital [facility] Discharge Date/Time: 05/13/23 20:40
[2023-05-13 18:20] LABS: Absolute Lymphocyte Count 0.87 X10^3/uL (0.83-4.51); Basophil# 0.03 X10^3/uL; Basophil% 0.4 % (0-1); Eosinophil# 0.08 X10^3/uL; Eosinophils% 0.9 % (0-5); Hematocrit 36.7 % (37-47); Hemoglobin 10.5 g/dL (12.0-15.0); Lymphocyte # 0.87 X10^3/ul (0.83-4.51); Lymphocyte % 10.2 % (19-41); Mean Corp Hgb Conc 28.6 g/dL (32-36); Mean Corpuscular Hgb 25.9 pg (27.0-32.0); Mean Corpuscular Volume 90.4 fL (81-99); Mean Platelet Vol. 10.2 fl (6.2-12.0); Monocyte# 0.57 X10^3/uL; Monocyte% 6.7 % (0-10); NRBC Flagged by Analyzer 0 % (0-5); Neutrophil # 6.96 X10^3/uL (2.7-7.7); Neutrophil % 81.4 % (47-70); Platelet Count 237 K/mm3 (150-450); RBC Distribution Width CV 17.7 % (11.6-14.6); RBC Distribution Width SD 58.4 fl (35.1-43.9); Red Blood Count 4.06 M/mm3 (4.2-5.4); White Blood Count 8.5 K/mm3 (4.4-11.0)
--- NOTE | 2023-05-13 18:20 | CPS ---
critical VBG results given to Dr. Ruelas at 1820
[2023-05-13] MEDS: Ipratropium/Albuterol Sulfate 3 ML AMPUL.NEB INHALATION ×2 (18:31→23:56)
[2023-05-13 18:38] LABS: Anion Gap -1 (5-15); BUN 9 mg/dL (7-18); BUN/Creat Ratio 23.8 RATIO (10-20); Calcium,Total 9.1 mg/dL (8.5-10.1); Chloride 98 mmol/L (98-107); Creatinine, Serum 0.38 mg/dL (0.55-1.02); EST Glomerular Filtration Rate 176 mL/min (>60); Est Glom Filt Rate - Afr Amer 213 mL/min (>60); Estimated Creatinine Clearance 34.06 ml/min; Glucose 108 mg/dL (74-106); Potassium 4.2 mmol/L (3.5-5.1); Sodium Level 140 mmol/L (136-145); Troponin-I HS 8 pg/mL (3.0-54.0)
[2023-05-13 18:39] LABS: Bacteria 0 SEEN /hpf (None Seen); Mucous, Urine 0 SEEN /hpf (<or=2+); Squamous Epithelial Cells - UA 0 SEEN /hpf (5-10)
[2023-05-13 18:42] LABS: Color, Urine Yellow (Yellow); Glucose, Dipstick Normal (Normal); Ketone-Dipstick 50 mg/dl (Negative); Leukocyte Esterase-Dipstick Negative /ul (Negative); Nitrite-Dipstick Negative (Negative); Occult Blood-Urine 25 /ul (Negative); Protein-Dipstick 15 mg/dl (Negative); Specific Gravity, Urine 1.025 (1.002-1.030); Urine Bilirubin Dipstick Negative (Negative); Urine Clarity Clear (Clear); Urine Urobilinogen Normal (Normal)
[2023-05-13] MEDS: Rocuronium Bromide 50 MG/5 ML Vial IV (18:44)
[2023-05-13] MEDS: Etomidate 20 MG/10 ML Vial 15 MG IV (18:44)
--- NOTE | 2023-05-13 18:50 | RAD_ITS ---
INDICATION: Shortness of breath, endotracheal tube placement EXAMINATION/TECHNIQUE: X-RAY - portable supine AP chest x-ray COMPARISON: 04/19/2021 FINDINGS: LINES/DEVICES: Endotracheal tube tip 3.8 cm above the luiz. Enteric tube passes well into the stomach. LUNGS: Lungs hyperinflated without consolidation, vascular congestion or pleural effusion. No pneumothorax. MEDIASTINUM AND CARDIOVASCULAR STRUCTURES: Cardiac silhouette not enlarged. Central airways and mediastinal contour are unremarkable. BONES AND SOFT TISSUES: No acute changes. RAD/Chest 1 View (Portable) IMPRESSION: Support devices as above. Hyperinflation without radiographic evidence of acute cardiopulmonary disease. Electronically Signed: Elie Mustafa MD at 19:42 EDT ,
[2023-05-13 18:51] LABS: Red Blood Cells-Urine 0-5 SEEN /hpf (0-5); White Blood Cells 0-5 SEEN /hpf (0-5)
--- NOTE | 2023-05-13 18:53 | ED.RN ---
Addendum entered by Maria Victoria De Leon 05/13/23 19:00: AT 1805 Original Note: PT HAS A DECREASE IN MENTATION AT THIS TIME. PT BECOMING CONFUSED AND ATTEMPTING TO TAKE OXYGEN OFF AT THIS TIME. O2 SATS 94 ON 4L O2. PT STILL HAS LABORED BREATHING AND ACCESSORY MUSCLE USE. ED RN PROTOCOL ORDERS ENTERED. RESPIRATORY AT BEDSIDE WITH BIPAP.
[2023-05-13 19:21] LABS: Lactic Acid 0.6 mmol/L (0.4-1.9)
[2023-05-13] MEDS: fentaNYL drip 100 ML 5 MCG CONT INF (19:25)
[2023-05-13] MEDS: MethylPREDNISolone 125 MG/2 ML Vial IV (19:27)
--- NOTE | 2023-05-13 19:27 | CT_ITS ---
STUDY: CTA CHEST REASON FOR EXAM: Female, 78 years old. SOB RADIATION DOSAGE (If Supplied By Facility): CTDIvol = ( 6.56 ) mGy, DLP = ( 140.21 ) mGycm TECHNIQUE: The examination was performed with the intravenous administration of 75mL Isovue-370. Post-processing of the angiographic images was performed, with multiplanar reformation and 3D reconstruction. Individualized dose optimization techniques were used for this CT. COMPARISON: 04/20/2021 FINDINGS: Normal enhancement of the main pulmonary artery and right and left pulmonary arteries. Normal enhancement of the bilateral peripheral pulmonary arteries. There is no demonstrated pulmonary embolism. Normal thoracic aorta and visualized great vessels. There is no demonstrated aortic dissection. Normal heart and pericardium. Normal mediastinum. Normal hilar regions. Patient intubated. Enteric tube passes into the stomach. Diffuse emphysematous changes with patchy bibasilar alveolar opacities including multiple tree-in-bud formations. Findings minimally increased since prior study. No consolidations. Stable spiculated 8 mm right apical lesion. Stable 5 mm subpleural lesion right upper lobe. No pleural effusions. No acute or aggressive osseous abnormality. No acute findings in the upper abdomen. CT/CTA Chest W/WO Contrast IMPRESSION: Normal CTA chest examination, without a demonstrated pulmonary embolism or arterial dissection. Patchy bibasilar infiltrates with tree-in-bud formations. Findings suspicious for infection. Stable nodules in the right apex and right upper lobe. This represents a two-year period of stability. No further follow-up recommended. Electronically Signed: Elie Mustafa MD at 21:44 EDT ,
[2023-05-13] MEDS: fentaNYL 100 MCG/2 ML Ampul IV (19:32)
--- NOTE | 2023-05-13 19:36 | ED.RN ---
PER DR. BECKFORD, FENTYNAL CAN BE INCREASED TO 100 MCG DUE TO PATIENT FIGHTING VENTILATOR.
--- NOTE | 2023-05-13 19:53 | PCM.HP.STD ---
HPI - General General Date of Admission: 05/13/23 Date of Service: 05/13/23 Chief Complaint: Shortness of breath HPI Narrative LISETTE HERNANDEZ, is a 78 F who presented to the emergency department at [facility] on 05/13/2023 with a chief complaint of shortness of breath. I was unable to get any history from the patient as she was intubated at the time of my eval however her son was at the bedside and could relay some information. He reports that up until last week his mother was enrolled in hospice for her chronic respiratory failure and COPD. At baseline she is on 6 L nasal cannula and ambulates with a cane sometimes however typically she is not requiring any assistive device. She was fired from hospice due to her lack of compliance with ongoing smoking while oxygen was running. He reports that she has lost a considerable amount of weight in the last 6 months and her oral intake has been extremely poor. He is noted that she is gotten weaker and weaker but was unsure what to do given the fact that she was recently fired from hospice. He talked to her on Saturday and visit her and noted that she was more fatigued but not significantly short of breath at that time. He reports today visiting nurses were there and were concerned. He talked to her as well and noted that she was having a little bit trouble breathing from her baseline. They requested she be evaluated the emergency department. To his knowledge she is compliant with her medications. Vital signs on presentation demonstrated temperature of 97.5, heart rate 107, blood pressure was 129/73, respiratory rate was 27 and oxygen saturation was 70% on 5 L nasal cannula. She was placed on a Ventimask and then BiPAP however was fatiguing therefore was placed on mechanical ventilation. Her CBC shows a normal white count with a left shift at 81.4%. She does have an anemia which appears to be new from most recent lab here done in 2020. Her hemoglobin was 10.5. Her chemistry panel was overall unremarkable other than a CO2 of 43 which appears to be chronic elevation however slightly higher than her previous baseline and I suspect this is related to chronic hypercapnia. Her initial troponin was negative at 8 and her BNP remains pending. Her urine was unremarkable. X-ray shows hyperinflation without any signs of pneumonia or any other acute findings. Her EKG shows sinus tachycardia with normal intervals and low voltage. In the emergency department she was intubated and placed on mechanical ventilation. She was given aerosols and Solu-Medrol and request for admission was made. [facility] Medical History Anxiety Bleeding disorder cataracts COPD (chronic obstructive pulmonary disease) Gout High cholesterol Hx of gallstones Migraines Neuropathy On home O2 Osteoarthritis Osteoporosis Sleep apnea Smoker Home Medications furosemide 40 mg tablet 40 mg PO DAILY diuretic 09/19/16 [History Last Taken 04/19/21] gabapentin 300 mg capsule 300 mg PO BIDCM neuropathy 09/19/16 [History Last Taken 04/19/21] roflumilast 500 mcg tablet 500 mcg PO DAILY COPD 09/19/16 [History Last Taken 04/19/21] ropinirole 0.5 mg tablet 0.5 mg PO QHS restless legs 09/19/16 [History Last Taken 04/19/21] alendronate 70 mg tablet 70 mg PO WE osteoporosis 10/24/18 [History Last Taken 04/19/21] famotidine 40 mg tablet 40 mg PO DAILY GERD 10/24/18 [History Last Taken 04/19/21] albuterol sulfate 1.25 mg/3 mL solution for nebulization 1.25 mg inhalation Q4H sob 04/04/21 [History Last Taken 04/03/21] bupropion HCl 150 mg tablet,12 hr sustained-release 150 mg PO BID depression 04/04/21 [History Last Taken 04/19/21] citalopram 20 mg tablet 20 mg PO QHS mood 04/04/21 [History Last Taken 04/19/21] cyanocobalamin (vitamin B-12) 2,000 mcg tablet,extended release (Vitamin B-12 ER) 2,000 mcg PO DAILY supplement 04/04/21 [History Last Taken 04/04/21] fluticasone furoate 200 mcg-vilanterol 25 mcg/dose inhalation powder (Breo Ellipta) 1 inh inhalation BID copd 04/04/21 [History Last Taken 04/19/21] loratadine 10 mg tablet 10 mg PO DAILY allergies 04/04/21 [History Last Taken 04/04/21] uqkojpwxlanv-yjjsrhsx-ajlmke tablet 1 tab PO DAILY supplement 04/04/21 [History Last Taken 04/04/21] potassium chloride 20 mEq tablet,extended release(part/cryst) 20 meq PO DAILY supplement 04/04/21 [History Last Taken 04/19/21] umeclidinium 62.5 mcg/actuation blister powder for inhalation (Incruse Ellipta) 1 inh inhalation DAILY copd 04/04/21 [History Last Taken 04/19/21] aspirin 81 mg tablet,delayed release 81 mg PO DAILY heart health 04/20/21 [History Last Taken Unknown] apixaban 5 mg tablet 10 mg (2 x 5 mg) PO BID #69 tabs 04/21/21 [Rx Last Taken Unknown] mirtazapine 7.5 mg QHS 10/05/21 [History Last Taken Unknown] benzonatate 100 mg capsule mg PO PRN cough 05/13/23 [History Last Taken Unknown] famotidine 20 mg tablet mg PO DAILY GERD 05/13/23 [History Last Taken Unknown] lorazepam 0.5 mg tablet mg PO PRN agitation 05/13/23 [History Last Taken Unknown] Allergy/AdvReac Type Severity Reaction Status Date / Time bupropion HCl Allergy Anaphylaxis Verified 05/13/23 17:38 [From Wellbutrin] cephalexin monohydrate Allergy Anaphylaxis Verified 05/13/23 17:38 [From Keflex] levofloxacin Allergy Anaphylaxis Verified 05/13/23 17:38 Penicillins [PCN] Allergy Anaphylaxis Verified 05/13/23 17:38 Milk Containing Products AdvReac phlegm Verified 05/13/23 17:38 (Dairy) [Milk Containing Products] Family History Father Colon cancer Heart disease Surgical History (Updated 04/20/21 @ 15:54 by Radha Avery) History of appendectomy History of cholecystectomy History of hysterectomy History of incisional hernia repair Status post hip surgery Social History (Updated 04/20/21 @ 16:05 by Maritza Granados NP, [employer]-C) Smoking Status: Current some day smoker tobacco type: cigarettes alcohol intake: never substance use type: does not use ROS Review of Systems ROS Unobtainable: due to endotracheal tube Vital Signs Vital Signs Vital Signs: 05/13/23 17:38 05/13/23 17:41 05/13/23 17:38 Temperature 97.5 F L Temperature Source Temporal Pulse Rate 107 H 97 Respiratory Rate 27 H 24 H Respiratory Effort Short of Breath Labored Accessory Muscle Use Respiratory Pattern Tachypnea Blood Pressure 129/73 H 102/67 Blood Pressure Mean 91 78 Pulse Ox 70 97 Oxygen Delivery Method Nasal Cannula Venturi Mask Venturi Mask Oxygen Flow Rate (L/min) 5 Fraction of Inspired Oxygen (FIO2) 50 50 05/13/23 18:28 05/13/23 18:28 05/13/23 18:32 Temperature Temperature Source Pulse Rate 118 H Respiratory Rate 31 H 28 H Respiratory Effort Respiratory Pattern Blood Pressure Blood Pressure Mean Pulse Ox 97 97 Oxygen Delivery Method Bi-pap Bi-pap Oxygen Flow Rate (L/min) Fraction of Inspired Oxygen (FIO2) 05/13/23 18:15 05/13/23 18:53 Temperature Temperature Source Pulse Rate 106 H 98 Respiratory Rate 29 H 17 Respiratory Effort Respiratory Pattern Blood Pressure 93/58 L Blood Pressure Mean 69 Pulse Ox 90 96 Oxygen Delivery Method Bi-pap Oxygen Flow Rate (L/min) Fraction of Inspired Oxygen (FIO2) 30 Weight Weight: 45.8 kg Body Mass Index (BMI) 17.9 Physical Exam Const no apparent distress; Negative for average body habitus, healthy appearing or well nourished Constitutional Narrative: Older, white female, cachectic appearing, lying in bed intubated and sedated but does spontaneously move all 4 extremities and actually tried to sit up while I was at the bedside, appears chronically ill HEENT normocephalic and head/scalp atraumatic HEENT Narrative: ET tube in place, mucous membranes are moist, dentition is poor, temporal wasting Eyes PERRL and conjunctivae normal Eyes Narrative: No scleral icterus Neck no lymphadenopathy, supple, no JVD and no carotid bruits Neck Narrative: Trachea midline, no thyroid Resp No normal respiratory effort, no retractions, no use of accessory muscles and No clear to auscultation bilaterally Resp Narrative: Severely diminished diffusely with diffuse scattered end expiratory wheezes Auscultation: Negative for rales or rhonchi Cardio regular rhythm, S1 normal heart sound, S2 normal heart sound, no murmurs, no rub, no gallops and no clicks Cardio Narrative: Mild tachycardia GI normal to inspection, nondistended, normoactive bowel sounds and soft to palpation GI Narrative: Scaphoid abdomen Extremity no clubbing, cyanosis or edema Extremity Narrative: Decreased lean muscle mass Skin no rashes or lesions noted, no wounds, skin turgor normal, no jaundice, no petechiae and no mottling Skin Narrative: Skin is pale Neuro moves all extremities and no focal motor deficits Neuro Narrative: Reflexes are 2+ bilateral upper and lower extremities, full exam is difficult due to intubation and sedation Speech: Negative for speech normal Psych Psych Narrative: Unable to assess Results Lab / Micro Data Attestation: I reviewed the patient's lab results. 05/13/23 18:12 05/13/23 18:12 Labs: Laboratory Results - last 24 hr 05/13/23 18:12: WBC 8.5, RBC 4.06 L, Hgb 10.5 L, Hct 36.7 L, MCV 90.4, MCH 25.9 L, MCHC 28.6 L, RDW Std Deviation 58.4 H, RDW Coeff of Jacinto 17.7 H, Plt Count 237, MPV 10.2, Immature Gran % (Auto) 0.400, Neut % (Auto) 81.4 H, Lymph % (Auto) 10.2 L, [place] % (Auto) 6.7, Eos % (Auto) 0.9, Baso % (Auto) 0.4, Absolute Neuts (auto) 7.0, Absolute Lymphs (auto) 0.87, Nucleated RBC % 0, Sodium 140, Potassium 4.2, Chloride 98, Carbon Dioxide 43.0 H, Anion Gap -1 L, BUN 9, Creatinine 0.38 L, Estim Creat Clear Calc 34.06, Est GFR (MDRD) Af Amer 213, Est GFR (MDRD) Non-Af 176, BUN/Creatinine Ratio 23.8 H, Glucose 108 H, Calcium 9.1, Troponin I High Sens 8 05/13/23 18:20: Lactic Acid 0.6, Urine Color Yellow, Urine Clarity Clear, Urine pH 6.0, Ur Specific [place] 1.025, Urine Protein 15 H, Urine Glucose (UA) Normal, Urine Ketones 50 H, Urine Occult Blood 25 H, Urine Nitrite Negative, Urine Bilirubin Negative, Urine Urobilinogen Normal, Ur Leukocyte Esterase Negative, Urine RBC 0-5 SEEN, Urine WBC 0-5 SEEN, Ur Squamous Epith Cells 0 SEEN, Urine Bacteria 0 SEEN, Urine Mucus 0 SEEN Micro: Microbiology 05/13/23 18:20 Nasal Secretion SARS-CoV-2 Antigen (Rapid) - Final ABG Data ABG results: ABG 05/13/23 18:10 Specimen Type DRAGAN VBG pH 7.22 L VBG pO2 28 VBG HCO3 41 H VBG Total CO2 44 H VBG O2 Sat (Calc) 38 L VBG Base Excess 14 H POC Mix VBG pCO2 Pt Tmp 100.6 H* Liter Flow 4.0 Crit Call To/Read Back Yes Radiology Impression Chest X-Ray 05/13/23 18:50 IMPRESSION: Support devices as above. Hyperinflation without radiographic evidence of acute cardiopulmonary disease. Electronically Signed: Elie Mustafa MD at 19:42 EDT , Assessment & Plan Assessment/Plan (1) Acute on chronic respiratory failure with hypoxia and hypercapnia: (2) COPD with acute exacerbation: (3) Pulmonary nodules: (4) Severe malnutrition: (5) Pulmonary cachexia due to COPD: (6) Anemia: PLAN: Plan Acute on chronic hypoxic and hypercapnic respiratory failure -Cultures are pending however infectious etiology suspicion is low and we will hold off on empiric antibiotics for now -Baseline oxygen requirement is 6 L -Patient was enrolled in hospice until last week when hospice disenrolled her due to her noncompliance with her smoking while having oxygen flowing -Repeat ABG once to the medical floor -Rapid COVID test is negative -Check viral respiratory panel -Every 4 hours DuoNebs -As needed albuterol -Solu-Medrol 40 every 8 -Sedation with fentanyl as ordered will add propofol if needed -BNP is pending however I highly doubt she is in heart failure -Hold home diuretics for now and use as needed IV -We will check CTA of the chest due to previous abnormalities on CT from 2020 -Currently on mechanical ventilation and I did discuss with family if we are unable to get her off the ventilator we would have to have a discussion about terminal extubation and reenrollment in hospice possibly her son voiced understanding and was agreeable 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 -Start tube feeds tomorrow as long as she remains stable through the night -Dietitian consultation -Will need supplements -Check TSH -Son reports considerable weight loss in the last 6 months and poor p.o. intake overall Anemia -Previous hemoglobin from 2020 which is the last time she had a lab work was between 12 and 14 -Current hemoglobin is 10.5 -Check iron studies -Check serum ferritin -Check guaiac stool -Patient is fully anticoagulated and will continue anticoagulation unless precipitous drop in hemoglobin at which time we will discontinue History of pulmonary embolism -Continue home Eliquis Osteoporosis -Hold alendronate and restart at discharge GERD -IV PPI with Protonix 40 daily COPD -Stage unknown is that we have no PFTs on records -Hold home inhalers Neuropathy -Hold gabapentin while intubated Depression/anxiety -We will continue meds once verified DVT prophylaxis -Continue home apixaban CODE STATUS -DNR CCA okay for intubation per discussion with son on admission Charges/Coding Visit Charges Inpatient E&M: 84599 Init Hosp L3
[2023-05-13 19:59] LABS: Ferritin 14 ng/mL (8-252); Iron 37 ug/dL (50-170); Iron Binding Capacity,Total 322 ug/dL (250-450); PERCENT IRON SATURATION 11.5 % (15.0-55.0)
--- NOTE | 2023-05-13 20:03 | ED.RN ---
PER DR. CHOPRA, INCREASE SEDATIONS TO 150 MCG
[2023-05-13] MEDS: Midazolam 5 MG/ML Syringe 10 MG IV (20:10)
[2023-05-13 20:13] LABS: BNP,B-Type NATRIURETIC PEPTIDE 29.5 pg/mL (0-100)
[2023-05-13] MEDS: Propofol 10MG/Ml 1,000 MG/100 ML Bottle 2.7 MG CONT INF (21:00)
[2023-05-13] MEDS: Citalopram 20 MG Tablet PO (21:30)
[2023-05-13 21:50] LABS: Allen Test Positive; Base Excess 4 mmol/L (-2 to +2); Bicarbonate 28.3 mmol/L (22-26); Blood Gas Specimen Type ART; FI02 85; Mode AC; O2 Delivery Device Adult Vent; PEEP 5; PO2 370 mmHG (75-100); RR 18; SITE R Radial; SO2 100 % (95-99); Total Carbon Dioxide 30 mmol/L; Vt 400; pCO2 40.5 mmHg (35-45); pH 7.45 (7.35-7.45)
--- NOTE | 2023-05-13 22:13 | PCM.HOSP.N ---
Hospitalist Note Postintubation ABG was reviewed and patient is now slightly alkalotic with a pH of 7.456/PO2 was 370/PCO2 was 40.5. This was down to 85% FiO2. We have weaned her oxygen with a goal sat of 88-92 per sent with her history of COPD and chronic retention. I will also decrease her respiratory rate from 18-16 to minimize any potential of worsening alkalosis.
[2023-05-13 23:36] LABS: M R Staph aureus DNA By PCR Negative (Negative); Probe Check PASS; Specimen Processing Control PASS
[2023-05-14] VITALS (50 sets, daily range): BP systolic 88–131; BP diastolic 47–68; PULSE 68–95; RESP 15–19; TEMP 37.1–38.2; O2SAT 92–100; BMI 18.4
[2023-05-14] MEDS: fentaNYL drip 100 ML 15 MCG CONT INF (00:23)
--- NOTE | 2023-05-14 00:46 | PCM.HOSP.N ---
Hospitalist Note Developed fever with a temperature of 100.5. Given left shift and fever will start antibiotics for respiratory sources and coverage for community-acquired infection. Unfortunately patient has allergies to penicillins and cephalosporins along with quinolones. We will start amikacin and azithromycin. Strep pneumo and Legionella antigens are pending along with other cultures as well as respiratory viral panel.
[2023-05-14] MEDS: Acetaminophen 325 MG Tablet 650 MG PO (01:41)
[2023-05-14] MEDS: 0.9% Saline Lock 10 ML Syringe IV ×3 (01:47→05:09)
[2023-05-14 03:12] LABS: Absolute Lymphocyte Count 0.56 X10^3/uL (0.83-4.51); Absolute Neutrophil Count 5.4 X10^3/uL (2.0-7.7); Basophil# 0.02 X10^3/uL; Basophil% 0.3 % (0-1); Hematocrit 32.5 % (37-47); Hemoglobin 9.7 g/dL (12.0-15.0); Lymphocyte # 0.56 X10^3/ul (0.83-4.51); Lymphocyte % 9.2 % (19-41); Mean Corp Hgb Conc 29.8 g/dL (32-36); Mean Corpuscular Hgb 26.4 pg (27.0-32.0); Mean Corpuscular Volume 88.6 fL (81-99); Mean Platelet Vol. 11.3 fl (6.2-12.0); Monocyte# 0.07 X10^3/uL; Monocyte% 1.2 % (0-10); NRBC Flagged by Analyzer 0 % (0-5); Neutrophil # 5.39 X10^3/uL (2.7-7.7); Neutrophil % 88.8 % (47-70); POSITIVE DIFFERENTIAL YES; Platelet Count 214 K/mm3 (150-450); RBC Distribution Width CV 17.9 % (11.6-14.6); RBC Distribution Width SD 58.6 fl (35.1-43.9); Red Blood Count 3.67 M/mm3 (4.2-5.4); White Blood Count 6.1 K/mm3 (4.4-11.0)
--- NOTE | 2023-05-14 03:15 | PCM.HOSP.N ---
Hospitalist Note Material for sepsis with fever, hypotension, and acute respiratory failure. Placed on antibiotics as noted previously. Now with persistent hypotension will fluid bolus and reassess following for response Sepsis Attestation Sepsis Alert: Yes Sepsis Attestation: Agree w/Sepsis Date exam was performed: 05/14/23 Time exam was performed: 03:15 Possible Source of Sepsis: Pulmonary Sepsis Organ Dysfunction Criteria Present: SBP < 90 mmHg or MAP < 65 mmHg, Acute Respiratory Failure (New need for BiPAP/CPAP or MV) and New/Unexplained change in mental status Fluid Resuscitation Fluid resuscitation indicated?: Yes Fluid Resuscitation ordered: 30 ml/kg fluid bolus ordered Amount of fluid ordered: 1,500
[2023-05-14 03:28] LABS: Differential Indicated SCAN CRITERIA MET
[2023-05-14] MEDS: Ipratropium/Albuterol Sulfate 3 ML AMPUL.NEB INHALATION ×6 (03:47→22:49)
[2023-05-14 03:50] LABS: CPK Total, Creatine Kinase 112 U/L (26-192); Triglycerides 71 mg/dL
[2023-05-14 03:51] LABS: Anisocytosis 1+
[2023-05-14 03:53] LABS: AST(SGOT) 16 U/L (15-37); Alanine Aminotransfer ALT/SGPT 14 U/L (13-56); Albumin, Serum 3.3 g/dL (3.2-5.0); Alkaline Phosphatase 60 U/L (45-117); Anion Gap 7 (5-15); BUN 11 mg/dL (7-18); BUN/Creat Ratio 25.9 RATIO (10-20); Calcium,Total 8.8 mg/dL (8.5-10.1); Chloride 100 mmol/L (98-107); Creatinine, Serum 0.42 mg/dL (0.55-1.02); EST Glomerular Filtration Rate 154 mL/min (>60); Est Glom Filt Rate - Afr Amer 186 mL/min (>60); Estimated Creatinine Clearance 34.73 ml/min; Globulin 3.2 g/dL (2.2-4.2); Glucose 117 mg/dL (74-106); Magnesium 2.1 mg/dL (1.6-2.6); Phosphorus 2.1 mg/dL (2.5-4.9); Potassium 4.1 mmol/L (3.5-5.1); Protein, Total 6.5 g/dL (6.4-8.2); Sodium Level 142 mmol/L (136-145); Thyroid Stim Hormone (TSH) 0.76 uIU/mL (0.358-3.74)
[2023-05-14] MEDS: 0.9% Normal Saline 1,000 ML 999 ML IV ×2 (03:54→05:06)
[2023-05-14] MEDS: Methylprednisolone Sod Succ 40 MG/ML VIAL IV ×3 (05:07→21:26)
[2023-05-14] MEDS: fentaNYL drip 100 ML 20 MCG CONT INF (06:19)
[2023-05-14] MEDS: TITRATION PARAMETER CHANGE 1 EACH IV (06:21)
--- NOTE | 2023-05-14 07:11 | EX.PCM.CONCC ---
Assessment & Plan Assessment/Plan (1) Acute on chronic respiratory failure with hypoxia and hypercapnia: (2) Pulmonary cachexia due to COPD: (3) COPD with acute exacerbation: PLAN: Plan RECOMMENDATIONS: 1. Continue assist-control mode mechanical ventilation. Wean FiO2 and PEEP for saturations greater than 90%. 2. Continue empiric antimicrobials. 3. Continue scheduled bronchodilators and steroids. 4. Resume Eliquis per home regimen. 5. Hold on tube feeds today. 6. Continue appropriate GI prophylaxis. 7. Tentative plans for spontaneous awakening and breathing trial beginning tomorrow morning. IMPRESSIONS: 1. Acute on chronic combined respiratory failure Appears to be secondary to a COPD exacerbation due to underlying pulmonary infectious etiology. The patient was placed on appropriate antimicrobials along with scheduled bronchodilators and steroids. She will be continued on assist control mode of mechanical ventilation, with a goal to wean FiO2 and PEEP for saturations greater than 90%. Continue propofol and fentanyl for sedation. Plan for daily paired spontaneous awakening and breathing trials, beginning tomorrow. The patient would likely benefit from resuming outpatient hospice care services upon discharge from the hospital. The patient does have a baseline 6 L/min oxygen requirement. 2. History of PE/pulmonary cachexia secondary to COPD/chronic tobacco dependency/GERD/depression/anxiety Complicates care, management, recovery and prognosis. Continue home medications as indicated. Plan to hold on tube feeds today in hopes for potential extubation tomorrow. The patient was previously active with hospice care services. I have asked that case management assist in finding out details regarding the termination of services. I believe the patient would benefit from resumption of hospice care services upon discharge from the hospital. TIME: 33 minutes of critical care time, independent of procedures, was spent addressing the patient's acute on chronic combined respiratory failure, COPD with exacerbation, review of all data and collaboration with the care team. HPI Consult Data Date of Consult: 05/14/23 HPI Narrative Reason for Consultation: Acute on chronic respiratory failure HPI Narrative: The patient is a 78-year-old female, with a history as outlined below, who presented to the emergency department via EMS on May 13 with progressive shortness of breath. History pertinent to her hospitalization was obtained primarily via chart review, as the patient is currently intubated and there is no family available at the bedside. The patient has an apparent history of chronic hypoxemic respiratory failure and COPD of unclear severity. She apparently requires 6 L/min of supplemental oxygen at her baseline. The patient was recently active with hospice care services, but was apparently terminated due to her lack of compliance and ongoing tobacco abuse while wearing supplemental O2. On presentation to the emergency department, the patient was noted to be afebrile and hemodynamically stable. Initial laboratory evaluation revealed no evidence of a leukocytosis. Chemistry profile was notable for a bicarbonate of 43. Lactate was within normal limits. Troponin and BNP were unremarkable. Urine analysis was negative. MRSA screen was negative. CTA chest showed no evidence for pulmonary embolism. Bibasilar infiltrates along with stable subcentimeter pulmonary nodules were noted. The patient was ultimately placed on BiPAP therapy, but continues to have evidence of CO2 retention. Following a discussion with the patient's son, the decision was made to proceed with intubation. The patient was placed on antimicrobials, bronchodilators and IV steroids. She was admitted to the medical intensive care unit for further management. [facility] Medical History Anxiety Bleeding disorder cataracts COPD (chronic obstructive pulmonary disease) Gout High cholesterol Hx of gallstones Migraines Neuropathy On home O2 Osteoarthritis Osteoporosis Sleep apnea Smoker Medical History unable to obtain Home Medications furosemide 40 mg tablet 40 mg PO DAILY diuretic 09/19/16 [History Last Taken 04/19/21] gabapentin 300 mg capsule 300 mg PO BIDCM neuropathy 09/19/16 [History Last Taken 04/19/21] roflumilast 500 mcg tablet 500 mcg PO DAILY COPD 09/19/16 [History Last Taken 04/19/21] ropinirole 0.5 mg tablet 0.5 mg PO QHS restless legs 09/19/16 [History Last Taken 04/19/21] alendronate 70 mg tablet 70 mg PO WE osteoporosis 10/24/18 [History Last Taken 04/19/21] famotidine 40 mg tablet 40 mg PO DAILY GERD 10/24/18 [History Last Taken 04/19/21] albuterol sulfate 1.25 mg/3 mL solution for nebulization 1.25 mg inhalation Q4H sob 04/04/21 [History Last Taken 04/03/21] bupropion HCl 150 mg tablet,12 hr sustained-release 150 mg PO BID depression 04/04/21 [History Last Taken 04/19/21] citalopram 20 mg tablet 20 mg PO QHS mood 04/04/21 [History Last Taken 04/19/21] cyanocobalamin (vitamin B-12) 2,000 mcg tablet,extended release (Vitamin B-12 ER) 2,000 mcg PO DAILY supplement 04/04/21 [History Last Taken 04/04/21] fluticasone furoate 200 mcg-vilanterol 25 mcg/dose inhalation powder (Breo Ellipta) 1 inh inhalation BID copd 04/04/21 [History Last Taken 04/19/21] loratadine 10 mg tablet 10 mg PO DAILY allergies 04/04/21 [History Last Taken 04/04/21] wvcweeyucwul-chxsrjpb-abjfwi tablet 1 tab PO DAILY supplement 04/04/21 [History Last Taken 04/04/21] potassium chloride 20 mEq tablet,extended release(part/cryst) 20 meq PO DAILY supplement 04/04/21 [History Last Taken 04/19/21] umeclidinium 62.5 mcg/actuation blister powder for inhalation (Incruse Ellipta) 1 inh inhalation DAILY copd 04/04/21 [History Last Taken 04/19/21] aspirin 81 mg tablet,delayed release 81 mg PO DAILY heart health 04/20/21 [History Last Taken Unknown] apixaban 5 mg tablet 10 mg (2 x 5 mg) PO BID #69 tabs 04/21/21 [Rx Last Taken Unknown] mirtazapine 7.5 mg QHS 10/05/21 [History Last Taken Unknown] benzonatate 100 mg capsule mg PO PRN cough 05/13/23 [History Last Taken Unknown] famotidine 20 mg tablet mg PO DAILY GERD 05/13/23 [History Last Taken Unknown] lorazepam 0.5 mg tablet mg PO PRN agitation 05/13/23 [History Last Taken Unknown] Allergy/AdvReac Type Severity Reaction Status Date / Time bupropion HCl Allergy Anaphylaxis Verified 05/13/23 17:38 [From Wellbutrin] cephalexin monohydrate Allergy Anaphylaxis Verified 05/13/23 17:38 [From Keflex] levofloxacin Allergy Anaphylaxis Verified 05/13/23 17:38 Penicillins [PCN] Allergy Anaphylaxis Verified 05/13/23 17:38 Milk Containing Products AdvReac phlegm Verified 05/13/23 17:38 (Dairy) [Milk Containing Products] Family History Father Colon cancer Heart disease Family History unable to obtain Surgical History (Updated 04/20/21 @ 15:54 by Radha Avery) History of appendectomy History of cholecystectomy History of hysterectomy History of incisional hernia repair Status post hip surgery Surgical History unable to obtain Social History (Updated 04/20/21 @ 16:05 by Maritza Granados MANUFACTURING TECHNOLOGY ANALYST, MANUFACTURING TECHNOLOGY ANALYST-C) Smoking Status: Current some day smoker tobacco type: cigarettes alcohol intake: never substance use type: does not use ROS Review of Systems ROS Unobtainable: due to endotracheal tube Physical Exam Const Constitutional Narrative: Intubated, sedated and mechanically ventilated. Frail and cachectic in appearance. No ventilator dyssynchrony. HEENT normocephalic and head/scalp atraumatic Mouth: endotracheal tube in place and OG tube in place Eyes PERRL, EOMs intact bilaterally and conjunctivae normal Neck supple General: trachea midline Resp normal respiratory effort Auscultation: wheezes throughout and diminished lung sounds Cardio regular rate and regular rhythm GI normal to inspection, nondistended, normoactive bowel sounds Extremity no clubbing, cyanosis or edema Skin no rashes or lesions noted Neuro Sensorium / Orientation: sedated on vent Lab / Micro Data 05/14/23 03:00 05/14/23 03:00 Labs: Laboratory Results - last 24 hr 05/13/23 18:12: WBC 8.5, RBC 4.06 L, Hgb 10.5 L, Hct 36.7 L, MCV 90.4, MCH 25.9 L, MCHC 28.6 L, RDW Std Deviation 58.4 H, RDW Coeff of [place] 17.7 H, Plt Count 237, MPV 10.2, Immature Gran % (Auto) 0.400, Neut % (Auto) 81.4 H, Lymph % (Auto) 10.2 L, [place] % (Auto) 6.7, Eos % (Auto) 0.9, Baso % (Auto) 0.4, Absolute Neuts (auto) 7.0, Absolute Lymphs (auto) 0.87, Nucleated RBC % 0, Sodium 140, Potassium 4.2, Chloride 98, Carbon Dioxide 43.0 H, Anion Gap -1 L, BUN 9, Creatinine 0.38 L, Estim Creat Clear Calc 34.06, Est GFR (MDRD) Af Amer 213, Est GFR (MDRD) Non-Af 176, BUN/Creatinine Ratio 23.8 H, Glucose 108 H, Calcium 9.1, Iron 37 L, TIBC 322, Iron Saturation 11.5 L, Ferritin 14, Troponin I High Sens 8, B-Natriuretic Peptide 29.5 05/13/23 18:20: Lactic Acid 0.6, Urine Color Yellow, Urine Clarity Clear, Urine pH 6.0, Ur Specific [place] 1.025, Urine Protein 15 H, Urine Glucose (UA) Normal, Urine Ketones 50 H, Urine Occult Blood 25 H, Urine Nitrite Negative, Urine Bilirubin Negative, Urine Urobilinogen Normal, Ur Leukocyte Esterase Negative, Urine RBC 0-5 SEEN, Urine WBC 0-5 SEEN, Ur Squamous Epith Cells 0 SEEN, Urine Bacteria 0 SEEN, Urine Mucus 0 SEEN 05/13/23 21:15: MRSA (PCR) Negative 05/14/23 03:00: WBC 6.1, RBC 3.67 L, Hgb 9.7 L, Hct 32.5 L, MCV 88.6, MCH 26.4 L, MCHC 29.8 L, RDW Std Deviation 58.6 H, RDW Coeff of [place] 17.9 H, Plt Count 214, MPV 11.3, Immature Gran % (Auto) 0.500, Neut % (Auto) 88.8 H, Lymph % (Auto) 9.2 L, [place] % (Auto) 1.2, Eos % (Auto) 0.0, Baso % (Auto) 0.3, Absolute Neuts (auto) 5.4, Absolute Lymphs (auto) 0.56 L, Nucleated RBC % 0, Anisocytosis 1+, Sodium 142, Potassium 4.1, Chloride 100, Carbon Dioxide 35.0 H, Anion Gap 7, BUN 11, Creatinine 0.42 L, Estim Creat Clear Calc 34.73, Est GFR (MDRD) Af Amer 186, Est GFR (MDRD) Non-Af 154, BUN/Creatinine Ratio 25.9 H, Glucose 117 H, Calcium 8.8, Phosphorus 2.1 L, Magnesium 2.1, Total Bilirubin 0.40, AST 16, ALT 14, Alkaline Phosphatase 60, Total Creatine Kinase 112, Total Protein 6.5, Albumin 3.3, Globulin 3.2, Albumin/Globulin Ratio 1.0, Triglycerides 71, TSH 0.76 Micro: Microbiology 05/14/23 01:57 Urine Catheter - Hood Legionella Antigen - Final 05/14/23 01:57 Urine Catheter - Hood Streptococcus pneumoniae Antigen (M - Final 05/13/23 21:38 Mucosa - Nose Respiratory Panel (PCR) - Final 05/13/23 18:20 Nasal Secretion SARS-CoV-2 Antigen (Rapid) - Final ABG Data ABG results: ABG 05/13/23 05/13/23 18:10 21:44 Specimen Type DRAGAN ART Sample Site R Radial pH 7.45 Bicarbonate Actual 28.3 H Total CO2 30 Base Excess 4 H O2 Saturation 100 H O2 % 85 ABG pCO2 40.5 ABG pO2 370 H* Joon Test Positive VBG pH 7.22 L VBG pO2 28 VBG HCO3 41 H VBG Total CO2 44 H VBG O2 Sat (Calc) 38 L VBG Base Excess 14 H POC Mix VBG pCO2 Pt Tmp 100.6 H* Respiration Rate 18 O2 Delivery Device Adult Vent Liter Flow 4.0 Vent Mode AC Tidal Volume 400 POC PEEP 5 Crit Call To/Read Back Yes Yes Blood Gas Notified Whom Dr Anne Radiology Impression Chest X-Ray 05/13/23 18:50 IMPRESSION: Support devices as above. Hyperinflation without radiographic evidence of acute cardiopulmonary disease. Electronically Signed: Elie Mustafa MD at 19:42 EDT , Chest CTA 05/13/23 19:27 IMPRESSION: Normal CTA chest examination, without a demonstrated pulmonary embolism or arterial dissection. Patchy bibasilar infiltrates with tree-in-bud formations. Findings suspicious for infection. Stable nodules in the right apex and right upper lobe. This represents a two-year period of stability. No further follow-up recommended. Electronically Signed: Elie Mustafa MD at 21:44 EDT , Charges/Coding Procedures Hospitalists Procedures: [id number] Critial Care 1st Hr
[2023-05-14] MEDS: Chlorhexidine 15 ML PO ×2 (09:29→21:26)
[2023-05-14] MEDS: Propofol 10MG/Ml 1,000 MG/100 ML Bottle 2.8 MG CONT INF (10:00)
[2023-05-14] MEDS: Aspirin 81 MG TAB.CHEW GT (10:02)
[2023-05-14] MEDS: CHLORHEXIDINE GLUC 2% CLOTH 1 EACH TOWELETTE TOPICAL (10:02)
[2023-05-14] MEDS: APIXABAN 5 MG TABLET GT ×2 (10:02→21:26)
[2023-05-14] MEDS: Cyanocobalamin 500 MCG Tablet 2000 MCG GT (10:03)
--- NOTE | 2023-05-14 13:03 | PN_ITS ---
Subjective Subjective Patient seen and examined. She remains intubated. RASS score is +1, and she is able to sit up in bed whilst on the ventilator. Unable to do review of systems as she is intubated. Objective Data Objective Data Vital Signs: Vital Signs Temp Pulse Resp BP Pulse Ox O2 Del Method O2 Flow Rate 99.6 F H 84 16 112/52 L 94 Mechanical Ventilator 40 05/14/23 12:00 05/14/23 12:00 05/14/23 12:00 05/14/23 12:00 05/14/23 12:00 05/14/23 12:00 05/13/23 22:00 FiO2 30 05/14/23 12:00 Oxygen Flow Rate (L/min) 40 Oxygen Delivery Method Mechanical Ventilator Weight: 104 lb 4.458 oz Body Mass Index (BMI) 18.4 Intake & Output: Intake and Output for Last 24 Hours 05/12/23 05/13/23 05/14/23 23:59 23:59 23:59 Intake Total 284.15 / 288.93 2482.29 / 2482.29 Output Total 570 / 570 Balance 284.15 / 288.93 1912.29 / 1912.29 Medical Nutrition Assessment Dietitian: Malnutrition Criteria Met Start: 05/14/23 11:27 Freq: Status: Active Protocol: Document 05/14/23 11:28 RMA (Rec: 05/14/23 11:28 RMA [id number]) Nutrition Malnutrition Evidence of Malnutrition Exists Yes Malnutrition (severe): Chronic Evidenced By Suboptimal Energy Intake ( Moderate),Weight Loss (Severe) ,Physical Changes (Moderate) Intake Problem Inadequate Oral Intake Etiology related to increased respiratory needs/intubated Signs/Symptoms as evidenced by NPO and currently no enteral nutrition support Status Active Problem Clinical Problem Chronic Disease or Condition Related Malnutrition Etiology Severe protein-calorie malnutrition in the context of chronic disease related to inadequate oral intake and increased energy expenditure Signs/Symptoms as evidenced by ~24% weight loss x 1-2 years, PO meeting less than 50% estimated nutrition needs, BMI 18.5, currently NPO, visible fat depletion and muscle wasting in the clavicle, face, orbitals, arms and legs Status Active Problem Recommendation Dietitian Recommendations/Changes Enteral nutrition support via OG tube if unable to extubate and advance PO diet in next 24 hours. Regular diet as tolerated with ensure clear as diet advance. 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 Lab / Micro Data 05/14/23 03:00 05/14/23 03:00 Labs: Laboratory Results - last 24 hr 05/13/23 18:12: WBC 8.5, RBC 4.06 L, Hgb 10.5 L, Hct 36.7 L, MCV 90.4, MCH 25.9 L, MCHC 28.6 L, RDW Std Deviation 58.4 H, RDW Coeff of [place] 17.7 H, Plt Count 237, MPV 10.2, Immature Gran % (Auto) 0.400, Neut % (Auto) 81.4 H, Lymph % (Auto) 10.2 L, [place] % (Auto) 6.7, Eos % (Auto) 0.9, Baso % (Auto) 0.4, Absolute Neuts (auto) 7.0, Absolute Lymphs (auto) 0.87, Nucleated RBC % 0, Sodium 140, Potassium 4.2, Chloride 98, Carbon Dioxide 43.0 H, Anion Gap -1 L, BUN 9, Creatinine 0.38 L, Estim Creat Clear Calc 34.06, Est GFR (MDRD) Af Amer 213, Est GFR (MDRD) Non-Af 176, BUN/Creatinine Ratio 23.8 H, Glucose 108 H, Calcium 9.1, Iron 37 L, TIBC 322, Iron Saturation 11.5 L, Ferritin 14, Troponin I High Sens 8, B-Natriuretic Peptide 29.5 05/13/23 18:20: Lactic Acid 0.6, Urine Color Yellow, Urine Clarity Clear, Urine pH 6.0, Ur Specific [place] 1.025, Urine Protein 15 H, Urine Glucose (UA) N ormal, Urine Ketones 50 H, Urine Occult Blood 25 H, Urine Nitrite Negative, Urine Bilirubin Negative, Urine Urobilinogen Normal, Ur Leukocyte Esterase Neg ative, Urine RBC 0-5 SEEN, Urine WBC 0-5 SEEN, Ur Squamous Epith Cells 0 SEEN, Urine Bacteria 0 SEEN, Urine Mucus 0 SEEN 05/13/23 21:15: MRSA (PCR) Negative 05/14/23 03:00: WBC 6.1, RBC 3.67 L, Hgb 9.7 L, Hct 32.5 L, MCV 88.6, MCH 26.4 L , MCHC 29.8 L, RDW Std Deviation 58.6 H, RDW Coeff of [place] 17.9 H, Plt Count 214, MPV 11.3, Immature Gran % (Auto) 0.500, Neut % (Auto) 88.8 H, Lymph % (Auto) 9.2 L, [place] % (Auto) 1.2, Eos % (Auto) 0.0, Baso % (Auto) 0.3, Absolute Neuts (auto) 5.4, Absolute Lymphs (auto) 0.56 L, Nucleated RBC % 0, Anisocytosis 1+, Sodium 142, Potassium 4.1, Chloride 100, Carbon Dioxide 35.0 H, Anion Gap 7, BUN 11, Creatinine 0.42 L, Estim Creat Clear Calc 34.73, Est GFR (MDRD) Af Amer 186, Est GFR (MDRD) Non-Af 154, BUN/Creatinine Ratio 25.9 H, Glucose 117 H, Calcium 8.8, Phosphorus 2.1 L, Magnesium 2.1, Total Bilirubin 0.40, AST 16, ALT 14, Alkaline Phosphatase 60, Total Creatine Kinase 112, Total Protein 6.5, Albumin 3.3, Globulin 3.2, Albumin/Globulin Ratio 1.0, Triglycerides 71, TSH 0.76 Micro: Microbiology 05/14/23 01:57 Urine Catheter - Hood Legionella Antigen - Final 05/14/23 01:57 Urine Catheter - Hood Streptococcus pneumoniae Antigen (M - Final 05/13/23 21:38 Mucosa - Nose Respiratory Panel (PCR) - Final 05/13/23 18:20 Nasal Secretion SARS-CoV-2 Antigen (Rapid) - Final ABG Data ABG results: ABG 05/13/23 05/13/23 18:10 21:44 Specimen Type DRAGAN ART Sample Site R Radial pH 7.45 Bicarbonate Actual 28.3 H Total CO2 30 Base Excess 4 H O2 Saturation 100 H O2 % 85 ABG pCO2 40.5 ABG pO2 370 H* Joon Test Positive VBG pH 7.22 L VBG pO2 28 VBG HCO3 41 H VBG Total CO2 44 H VBG O2 Sat (Calc) 38 L VBG Base Excess 14 H POC Mix VBG pCO2 Pt Tmp 100.6 H* Respiration Rate 18 O2 Delivery Device Adult Vent Liter Flow 4.0 Vent Mode AC Tidal Volume 400 POC PEEP 5 Crit Call To/Read Back Yes Yes Blood Gas Notified Whom Dr Anne Radiography Diagnostic Testing: Radiology Impression Chest X-Ray 05/13/23 18:50 IMPRESSION: Support devices as above. Hyperinflation without radiographic evidence of acute cardiopulmonary disease. Electronically Signed: Elie Mustafa MD at 19:42 EDT , Chest CTA 05/13/23 19:27 IMPRESSION: Normal CTA chest examination, without a demonstrated pulmonary embolism or arterial dissection. Patchy bibasilar infiltrates with tree-in-bud formations. Findings suspicious for infection. Stable nodules in the right apex and right upper lobe. This represents a two-year period of stability. No further follow-up recommended. Electronically Signed: Elie Mustafa MD at 21:44 EDT , Physical Exam Const Constitutional Narrative: intubated, RASS score is + 1 HEENT normocephalic, head/scalp atraumatic, moist oral mucous membranes and oropharynx normal Eyes PERRL Neck No supple and No no JVD Lymph Lymphatic: Negative for no lymphadenopathy noted Resp Resp Narrative: mildly diminished breath sounds bibasally, no wheezes or crackles. intubated. On minimal vent settings Cardio regular rate, S1 normal heart sound, S2 normal heart sound and no murmurs; Negative for regular rhythm GI normal to inspection, nondistended, normoactive bowel sounds and soft to palpation Skin General Skin Exam: no breakdown Neuro CN's II-XII intact bilaterally and no focal motor deficits Motor Exam: strength 5/5 throughout Psych Psych Narrative: intubated Assessment & Plan Assessment/Plan (1) Pulmonary cachexia due to COPD: PLAN: Plan #Acute on chronic hypoxic and hypercapnic respiratory failure due to pneumonia and COPD exacerbation * was enrolled in hospice until last week when she was disenrolled due to noncompliance and her smoking at home whilst her oxygen was on * covid test was negative * may be due to COPD exacerbation * on IV solumedrol * respiratory panel was negative * intubated after she didnt improve on BIPAP * critical care on board * on IV lasix * currently on minimal vent settings. LIkely to be extubated tomorrow * on amikacin and azithromycin; has numerous listed allergies * #Sevre malnutrition * due to severe pulmonary cachexia * reliability technologist on board. * has suppposedly had considerable weight loss over the past 6 months whilst being in hospice. * dietitian on board * #History of PE: on eliquis #Anemia: hb is 10.5. on eliquis. stool for occult blood as well as ferritin and iron studies pending. #Osteoporosis: alendronate on board. #GERD; on IV PPI DVT prophylaxis: on eliquis Charges/Coding Visit Charges Inpatient E&M: 27202 Subs Hosp L3
[2023-05-14] MEDS: fentaNYL drip 100 ML 12.5 MCG CONT INF ×2 (14:05→22:41)
--- NOTE | 2023-05-14 16:00 | CASEMGMT ---
Social Work Telephone call to [facility] to inquire about reason for discharge per patient son, Juan C's (HCPOA) request. Per [facility] update that patient was discharged for cause. [facility] states to have not felt safe in the home due to patient smoking. This social sciences professor updated Juan C on above information, Juan C is interested in other hospice agencies if plan is for patient to return to home. Social Work to follow up with Juan C on other hospice options. PASSPORT porter sample case is Nata Cao ([phone]). Patient receives meals (global meals, medical alert and aide 2x daily and every other weekend). Nata updated that patient is in ICU and intubated. PLAN: TBD Social Work to continue to follow. Martha Mancera MSW, GIGI
[2023-05-14] MEDS: Citalopram 20 MG Tablet GT (21:26)
[2023-05-15] VITALS (34 sets, daily range): BP systolic 103–139; BP diastolic 56–91; PULSE 83–109; RESP 11–27; TEMP 36.7–37.4; O2SAT 88–100; BMI 19.1
[2023-05-15] MEDS: Ipratropium/Albuterol Sulfate 3 ML AMPUL.NEB INHALATION ×6 (02:02→23:22)
[2023-05-15] MEDS: Methylprednisolone Sod Succ 40 MG/ML VIAL IV ×3 (05:23→21:41)
[2023-05-15] MEDS: CHLORHEXIDINE GLUC 2% CLOTH 1 EACH TOWELETTE TOPICAL (05:23)
[2023-05-15] MEDS: 0.9% Saline Lock 10 ML Syringe IV ×2 (05:23→13:30)
[2023-05-15 05:41] LABS: Absolute Lymphocyte Count 0.74 X10^3/uL (0.83-4.51); Absolute Neutrophil Count 8.1 X10^3/uL (2.0-7.7); Basophil# 0.01 X10^3/uL; Basophil% 0.1 % (0-1); Hematocrit 27.3 % (37-47); Hemoglobin 8.8 g/dL (12.0-15.0); Lymphocyte # 0.74 X10^3/ul (0.83-4.51); Lymphocyte % 7.7 % (19-41); Mean Corp Hgb Conc 32.2 g/dL (32-36); Mean Corpuscular Hgb 26.3 pg (27.0-32.0); Mean Corpuscular Volume 81.5 fL (81-99); Mean Platelet Vol. 10.5 fl (6.2-12.0); Monocyte# 0.67 X10^3/uL; NRBC Flagged by Analyzer 0 % (0-5); Neutrophil # 8.14 X10^3/uL (2.7-7.7); Neutrophil % 84.7 % (47-70); Platelet Count 215 K/mm3 (150-450); RBC Distribution Width CV 17.9 % (11.6-14.6); RBC Distribution Width SD 51.6 fl (35.1-43.9); Red Blood Count 3.35 M/mm3 (4.2-5.4); White Blood Count 9.6 K/mm3 (4.4-11.0)
[2023-05-15 05:52] LABS: Anion Gap 4 (5-15); BUN 16 mg/dL (7-18); BUN/Creat Ratio 50.5 RATIO (10-20); Calcium,Total 8.3 mg/dL (8.5-10.1); Chloride 101 mmol/L (98-107); Creatinine, Serum 0.32 mg/dL (0.55-1.02); EST Glomerular Filtration Rate 215 mL/min (>60); Est Glom Filt Rate - Afr Amer 260 mL/min (>60); Estimated Creatinine Clearance 36.52 ml/min; Glucose 129 mg/dL (74-106); Potassium 3.7 mmol/L (3.5-5.1); Sodium Level 140 mmol/L (136-145)
--- NOTE | 2023-05-15 06:26 | PN.CC_ITS ---
Assessment & Plan Assessment/Plan (1) Acute on chronic respiratory failure with hypoxia and hypercapnia: (2) Pulmonary cachexia due to COPD: (3) COPD with acute exacerbation: PLAN: Plan RECOMMENDATIONS: 1. Proceed with a trial of extubation this morning. 2. Once extubated, resume supplemental oxygen at 6 L/min, per baseline regimen. 3. Continue empiric antimicrobials. 4. Continue scheduled bronchodilators and steroids. 5. Continue Eliquis per home regimen. 6. Perform bedside swallow evaluation and advance diet accordingly. 7. PT/OT to work with the patient. IMPRESSIONS: 1. Acute on chronic combined respiratory failure Appears to be secondary to a COPD exacerbation due to underlying pulmonary infectious etiology. The patient was placed on appropriate antimicrobials along with scheduled bronchodilators and steroids. The patient improved from a clinical perspective with invasive mechanical ventilatory support. She was able to be successfully extubated on the morning of May 15. Plan to continue supplemental oxygen at 6 L/min, per baseline regimen. Continue antimicrobials to complete 7 days of therapy. Perform bedside swallow evaluation and advance diet accordingly. The patient would likely benefit from resuming outpatient hospice care services upon discharge from the hospital. 2. History of PE/pulmonary cachexia secondary to COPD/chronic tobacco dependency/GERD/depression/anxiety Complicates care, management, recovery and prognosis. Continue home medications as indicated. The patient was previously active with hospice care services. I believe the patient would benefit from resumption of hospice care services upon discharge from the hospital. TIME: 32 minutes of critical care time, independent of procedures, was spent addressing the patient's acute on chronic combined respiratory failure, COPD with exacerbation, review of all data and collaboration with the care team. Subjective Subjective The patient was seen and examined at the bedside this morning. Events from the last 24 hours have been reviewed. The patient is currently afebrile, hemodynami panchito stable and maintaining appropriate oxygen saturations on spontaneous mode of mechanical ventilation. The patient did well this morning on her spontaneous breathing trial. She is alert and able to follow commands appropriately. Objective Data Objective Data The patient's most recent lab work, culture data and imaging studies have all been personally reviewed. Infectious work-up has been unrevealing to date. Vital Signs: Vital Signs Temp Pulse Resp BP Pulse Ox O2 Del Method O2 Flow Rate 99.0 F 95 11 L 117/73 95 Room Air 40 05/15/23 06:00 05/15/23 06:00 05/15/23 06:00 05/15/23 06:00 05/15/23 06:00 05/15/23 06:00 05/13/23 22:00 FiO2 35 05/15/23 05:00 Oxygen Flow Rate (L/min) 40 Oxygen Delivery Method Room Air Weight: 108 lb 3.951 oz Body Mass Index (BMI) 19.1 Intake & Output: Intake and Output for Last 24 Hours 05/13/23 05/14/23 05/15/23 23:59 23:59 23:59 Intake Total 284.15 / 288.93 2978.37 / 3045.17 443.38 / 443.38 Output Total 660 / 810 210 / 210 Balance 284.15 / 288.93 2318.37 / 2235.17 233.38 / 233.38 Medical Nutrition Assessment Dietitian: Malnutrition Criteria Met Start: 05/14/23 11:27 Freq: Status: Active Protocol: Document 05/14/23 11:28 RMA (Rec: 05/14/23 11:28 RMA [id number]) Nutrition Malnutrition Evidence of Malnutrition Exists Yes Malnutrition (severe): Chronic Evidenced By Suboptimal Energy Intake ( Moderate),Weight Loss (Severe) ,Physical Changes (Moderate) Intake Problem Inadequate Oral Intake Etiology related to increased respiratory needs/intubated Signs/Symptoms as evidenced by NPO and currently no enteral nutrition support Status Active Problem Clinical Problem Chronic Disease or Condition Related Malnutrition Etiology Severe protein-calorie malnutrition in the context of chronic disease related to inadequate oral intake and increased energy expenditure Signs/Symptoms as evidenced by ~24% weight loss x 1-2 years, PO meeting less than 50% estimated nutrition needs, BMI 18.5, currently NPO, visible fat depletion and muscle wasting in the clavicle, face, orbitals, arms and legs Status Active Problem Recommendation Dietitian Recommendations/Changes Enteral nutrition support via OG tube if unable to extubate and advance PO diet in next 24 hours. Regular diet as tolerated with ensure clear as diet advance. Pt reports milk/dairy avoidance in diet captain's assistant---will clarify as able. Lab / Micro Data Attestation: I reviewed the patient's lab results. 05/15/23 05:30 05/15/23 05:30 Labs: Laboratory Results - last 24 hr 05/15/23 05:30: WBC 9.6, RBC 3.35 L, Hgb 8.8 L, Hct 27.3 L, MCV 81.5 D, MCH 26.3 L, MCHC 32.2 D, RDW Std Deviation 51.6 H, RDW Coeff of Jacinto 17.9 H, Plt Count 215, MPV 10.5, Immature Gran % (Auto) 0.500, Neut % (Auto) 84.7 H, Lymph % (Auto) 7.7 L, [place] % (Auto) 7.0, Eos % (Auto) 0.0, Baso % (Auto) 0.1, Absolute Neuts (auto) 8.1 H, Absolute Lymphs (auto) 0.74 L, Nucleated RBC % 0, Sodium 140, Potassium 3.7, Chloride 101, Carbon Dioxide 35.0 H, Anion Gap 4 L, BUN 16, Creatinine 0.32 L, Estim Creat Clear Calc 36.52, Est GFR (MDRD) Af Amer 260, Est GFR (MDRD) Non-Af 215, BUN/Creatinine Ratio 50.5 H, Glucose 129 H, Calcium 8.3 L Micro: Microbiology 05/13/23 19:10 Sputum, Induced/Lukens Gram Stain - Final 05/14/23 01:57 Urine Catheter - Hood Legionella Antigen - Final 05/14/23 01:57 Urine Catheter - Hood Streptococcus pneumoniae Antigen (M - Final 05/13/23 21:38 Mucosa - Nose Respiratory Panel (PCR) - Final 05/13/23 18:20 Nasal Secretion SARS-CoV-2 Antigen (Rapid) - Final Physical Exam Const Constitutional Narrative: Remains intubated and mechanically ventilated. Frail and cachectic in appearance. HEENT normocephalic and head/scalp atraumatic Mouth: endotracheal tube in place and OG tube in place Eyes PERRL, EOMs intact bilaterally and conjunctivae normal Neck supple General: trachea midline Resp normal respiratory effort Auscultation: diminished lung sounds; Negative for rales, rhonchi or wheezes Cardio regular rate and regular rhythm GI normal to inspection, nondistended, normoactive bowel sounds Extremity no clubbing, cyanosis or edema Skin no rashes or lesions noted Neuro Neuro Narrative: Alert and able to follow simple commands appropriately. Charges/Coding Procedures Hospitalists Procedures: 58737 Critial Care 1st Hr
--- NOTE | 2023-05-15 07:09 | NURSING ---
Pt extubated @ 0635, tolerating well.
[2023-05-15] MEDS: Multivitamins,Ther W-Minerals Tablet 1 TABLET PO (09:33)
[2023-05-15] MEDS: APIXABAN 5 MG TABLET PO ×2 (09:33→21:40)
[2023-05-15] MEDS: Cyanocobalamin 500 MCG Tablet 2000 MCG PO (09:33)
[2023-05-15] MEDS: Aspirin 81 MG TAB.CHEW PO (09:33)
[2023-05-15] MEDS: Pantoprazole Sodium 40 MG Tablet PO (09:35)
--- NOTE | 2023-05-15 12:56 | PN_ITS ---
Subjective Subjective Patient seen and examined. She was extubated. She had no active complaints. She complained of cough. She denied any chest pain, palpitations, dizziness, nausea, vomiting or any other symptoms. Review of systems is otherwise negative. She is on 3L of oxygen. Objective Data Objective Data Vital Signs: Vital Signs Temp Pulse Resp BP Pulse Ox O2 Del Method O2 Flow Rate 98.9 F 100 25 H 139/72 H 96 Nasal Cannula 3 05/15/23 12:00 05/15/23 12:00 05/15/23 12:00 05/15/23 12:00 05/15/23 12:00 05/15/23 12:00 05/15/23 12:00 FiO2 35 05/15/23 05:00 Oxygen Flow Rate (L/min) 3 Oxygen Delivery Method Nasal Cannula Weight: 108 lb 3.951 oz Body Mass Index (BMI) 19.1 Intake & Output: Intake and Output for Last 24 Hours 05/13/23 05/14/23 05/15/23 23:59 23:59 23:59 Intake Total 284.15 / 288.93 2978.37 / 3045.17 923.38 / 923.38 Output Total 660 / 810 610 / 610 Balance 284.15 / 288.93 2318.37 / 2235.17 313.38 / 313.38 Medical Nutrition Assessment Dietitian: Malnutrition Criteria Met Start: 05/14/23 11:27 Freq: Status: Active Protocol: Document 05/15/23 10:44 RMA (Rec: 05/15/23 10:45 RMA [id number]) Nutrition Malnutrition Evidence of Malnutrition Exists Yes Malnutrition (severe): Chronic Evidenced By Suboptimal Energy Intake ( Moderate),Weight Loss (Severe) ,Physical Changes (Moderate) Intake Problem Inadequate Oral Intake Etiology related to increased respiratory needs/intubated Signs/Symptoms as evidenced by NPO and currently no enteral nutrition support Status Resolved Problem Clinical Problem Chronic Disease or Condition Related Malnutrition Etiology Severe protein-calorie malnutrition in the context of chronic disease related to inadequate oral intake and increased energy expenditure Signs/Symptoms as evidenced by ~24% weight loss x 1-2 years, PO meeting less than 50% estimated nutrition needs, BMI 18.5, currently NPO, visible fat depletion and muscle wasting in the clavicle, face, orbitals, arms and legs Status Active Problem Recommendation Dietitian Recommendations/Changes Continue liberalized Regular diet as tolerated with no milk to drink or dairy/milk- containing products. Will add 240mL ensure clear TID w/ meals as tolerated. Encourage PO at meals and intake of ONS to prevent further caloric depletion. Lab / Micro Data 05/15/23 05:30 05/15/23 05:30 Labs: Laboratory Results - last 24 hr 05/15/23 05:30: WBC 9.6, RBC 3.35 L, Hgb 8.8 L, Hct 27.3 L, MCV 81.5 D, MCH 26.3 L, MCHC 32.2 D, RDW Std Deviation 51.6 H, RDW Coeff of Jacinto 17.9 H, Plt Count 215, MPV 10.5, Immature Gran % (Auto) 0.500, Neut % (Auto) 84.7 H, Lymph % (Auto) 7.7 L, [place] % (Auto) 7.0, Eos % (Auto) 0.0, Baso % (Auto) 0.1, Absolute Neuts (auto) 8.1 H, Absolute Lymphs (auto) 0.74 L, Nucleated RBC % 0, Sodium 140, Potassium 3.7, Chloride 101, Carbon Dioxide 35.0 H, Anion Gap 4 L, BUN 16, Creatinine 0.32 L, Estim Creat Clear Calc 36.52, Est GFR (MDRD) Af Amer 260, Est GFR (MDRD) Non-Af 215, BUN/Creatinine Ratio 50.5 H, Glucose 129 H, Calcium 8.3 L Micro: Microbiology 05/13/23 19:10 Sputum, Induced/Lukens Gram Stain - Final 05/13/23 19:10 Sputum, Induced/Lukens Respiratory Culture - Preliminary Appears to be normal respiratory senait. Further studies to follow. 05/13/23 18:20 Urine, Catheterized Urine Culture - Final Culture exhibits no growth. 05/14/23 01:57 Urine Catheter - Hood Legionella Antigen - Final 05/14/23 01:57 Urine Catheter - Hood Streptococcus pneumoniae Antigen (M - Final 05/13/23 21:38 Mucosa - Nose Respiratory Panel (PCR) - Final 05/13/23 18:20 Nasal Secretion SARS-CoV-2 Antigen (Rapid) - Final Physical Exam Const alert, oriented x3 and no apparent distress; Negative for healthy appearing or well nourished Constitutional Narrative: extubated, on 3L of oxygen HEENT normocephalic, head/scalp atraumatic, moist oral mucous membranes and oropharynx normal Eyes PERRL and conjunctivae normal Eyes Narrative: No scleral icterus Neck no lymphadenopathy, No supple, No no JVD and no carotid bruits Neck Narrative: Trachea midline, no thyroid Lymph Lymphatic: Negative for no lymphadenopathy noted Resp Resp Narrative: diminished breath sounds bibasally, no wheezes or crackles. Auscultation: Negative for rales or rhonchi Cardio regular rate, regular rhythm, S1 normal heart sound, S2 normal heart sound and no murmurs GI normal to inspection, nondistended, normoactive bowel sounds and soft to palpation Extremity normal capillary refill and no clubbing, cyanosis or edema Skin no rashes or lesions noted, no wounds, skin turgor normal, no jaundice, no petechiae and no mottling General Skin Exam: no breakdown Neuro CN's II-XII intact bilaterally, moves all extremities and no focal motor defi cits Speech: Negative for speech normal Motor Exam: strength 5/5 throughout Psych thought process normal and cooperative Appearance: appropriate Assessment & Plan Assessment/Plan (1) Pulmonary cachexia due to COPD: PLAN: Plan #Acute on chronic hypoxic and hypercapnic respiratory failure due to pneumonia and COPD exacerbation * now extubated. * was enrolled in hospice until last week when she was dis-enrolled due to noncompliance and her smoking at home whilst her oxygen was on * covid test was negative * may be due to COPD exacerbation * on IV solumedrol * respiratory panel was negative * intubated after she didn't improve on BIPAP * critical care on board * on IV lasix * now extubated and on 3L of oxygen. * on amikacin and azithromycin; has numerous listed allergies * #Severe protein calorie malnutrition * due to severe pulmonary cachexia * dietitian on board. * has suppposedly had considerable weight loss over the past 6 months whilst being in hospice. * dietitian on board * #History of PE: on eliquis #Anemia: on eliquis. stool for occult blood as well as ferritin and iron studies pending. #Osteoporosis: alendronate on board. #GERD; on IV PPI DVT prophylaxis: on eliquis Charges/Coding Visit Charges Inpatient E&M: 49995 Subs Hosp L2
--- NOTE | 2023-05-15 14:28 | CASEMGMT ---
Social Work SW met with pt and her son Juan C and discussed hospice care. Pt able to state why services with [facility] were terminated. Pt states services were started with [facility] October 2021. Pt would like to resume hospice services as she has found this very helpful. SW provided pt and son with a list of hospice agencies. List was reviewed and preferred providers are [facility], hosp[facility], [place]. Phone call to Yarelis at [facility] and referral made. Clinicals faxed. [facility] to reach out to son Juan C to discuss admission to [facility]. Physician updated. Pt states that her home oxygen is through [facility] and that she has a concentrator but no tanks for transportation home have been provided. RNCM updated. Pt has services through [facility] and SW to updated SAMIR Cordon at time of discharge. SÁNCHEZ Watkins
[2023-05-15] MEDS: Senna/Docusate Sodium 1 Tablet 2 TABLET PO (21:40)
[2023-05-15] MEDS: traZODone 50 MG Tablet PO (21:40)
[2023-05-15] MEDS: Pramipexole Di-HCl 0.25 MG Tablet PO (21:40)
[2023-05-15] MEDS: busPIRone 5 MG Tablet 10 MG PO (21:40)
[2023-05-15] MEDS: Citalopram 20 MG Tablet PO (21:40)
[2023-05-15] MEDS: LORazepam 0.5 MG Tablet PO (21:56)
[2023-05-16] VITALS (19 sets, daily range): BP systolic 104–143; BP diastolic 62–91; PULSE 77–112; RESP 18–27; TEMP 36.4–37.2; O2SAT 93–100; BMI 19.1
[2023-05-16 04:12] LABS: Absolute Lymphocyte Count 0.32 X10^3/uL (0.83-4.51); Absolute Neutrophil Count 5.1 X10^3/uL (2.0-7.7); Basophil# 0.01 X10^3/uL; Basophil% 0.2 % (0-1); Hematocrit 28.1 % (37-47); Hemoglobin 8.9 g/dL (12.0-15.0); Lymphocyte # 0.32 X10^3/ul (0.83-4.51); Lymphocyte % 5.6 % (19-41); Mean Corp Hgb Conc 31.7 g/dL (32-36); Mean Corpuscular Hgb 26.2 pg (27.0-32.0); Mean Corpuscular Volume 82.6 fL (81-99); Mean Platelet Vol. 10.6 fl (6.2-12.0); Monocyte# 0.25 X10^3/uL; Monocyte% 4.4 % (0-10); NRBC Flagged by Analyzer 0 % (0-5); Neutrophil # 5.13 X10^3/uL (2.7-7.7); Neutrophil % 89.3 % (47-70); POSITIVE DIFFERENTIAL YES; Platelet Count 204 K/mm3 (150-450); RBC Distribution Width CV 17.9 % (11.6-14.6); RBC Distribution Width SD 52.8 fl (35.1-43.9); White Blood Count 5.7 K/mm3 (4.4-11.0)
[2023-05-16 04:14] LABS: Differential Indicated SCAN CRITERIA MET
[2023-05-16 04:29] LABS: Anion Gap 3 (5-15); BUN 11 mg/dL (7-18); BUN/Creat Ratio 39.6 RATIO (10-20); Calcium,Total 8.3 mg/dL (8.5-10.1); Chloride 100 mmol/L (98-107); Creatinine, Serum 0.28 mg/dL (0.55-1.02); EST Glomerular Filtration Rate 250 mL/min (>60); Est Glom Filt Rate - Afr Amer 303 mL/min (>60); Estimated Creatinine Clearance 36.52 ml/min; Glucose 105 mg/dL (74-106); Potassium 3.7 mmol/L (3.5-5.1); Sodium Level 140 mmol/L (136-145)
[2023-05-16 04:30] LABS: Anisocytosis 1+
[2023-05-16] MEDS: Methylprednisolone Sod Succ 40 MG/ML VIAL IV ×3 (06:12→21:42)
[2023-05-16] MEDS: 0.9% Saline Lock 10 ML Syringe IV ×3 (06:16→12:54)
--- NOTE | 2023-05-16 06:43 | PCM.PN.INT ---
Assessment & Plan Assessment/Plan (1) Acute on chronic respiratory failure with hypoxia and hypercapnia: (2) Pulmonary cachexia due to COPD: (3) COPD with acute exacerbation: PLAN: Plan RECOMMENDATIONS: 1. Continue to wean supplemental oxygen as tolerated. 2. Continue empiric antimicrobials to complete 7 days of therapy. 3. Continue scheduled bronchodilators and steroids. 4. Continue Eliquis per home regimen. 5. Encourage incentive spirometer use and mobilize patient as tolerated. 6. Disposition planning per case management/social work. 7. The patient is medically stable for transfer out of the intensive care unit. We will sign off from a critical care perspective. IMPRESSIONS: 1. Acute on chronic combined respiratory failure Appears to be secondary to a COPD exacerbation due to underlying pulmonary infectious etiology. The patient was placed on appropriate antimicrobials along with scheduled bronchodilators and steroids. The patient improved from a clinical perspective with invasive mechanical ventilatory support. She was able to be successfully extubated on the morning of May 15. Plan to continue supplemental oxygen per baseline regimen. Continue antimicrobials to complete 7 days of therapy. The patient would likely benefit from resuming outpatient hospice care services upon discharge from the hospital. 2. History of PE/pulmonary cachexia secondary to COPD/chronic tobacco dependency/GERD/depression/anxiety Complicates care, management, recovery and prognosis. Continue home medications as indicated. The patient was previously active with hospice care services. I believe the patient would benefit from resumption of hospice care services upon discharge from the hospital. This note was generated with [employer] dictation software. It may contain incorrect words, spelling, and punctuation that were not noted in checking the note before signing. Subjective Subjective The patient was seen and examined at the bedside this morning. Events from the last 24 hours have been reviewed. The patient is currently afebrile, hemodynamically stable and maintaining appropriate oxygen saturations on 3 L/min via nasal cannula. No overnight events were noted by the nursing staff. The patient is without any specific complaints this morning. Morning labs are stable. Objective Data Objective Data The patient's most recent lab work, culture data and imaging studies have all been personally reviewed. Infectious work-up has been unrevealing to date. Vital Signs: Vital Signs Temp Pulse Resp BP Pulse Ox O2 Del Method O2 Flow Rate 98.1 F 77 22 H 119/69 99 Nasal Cannula 3 05/16/23 04:00 05/16/23 05:00 05/16/23 05:00 05/16/23 05:00 05/16/23 05:00 05/16/23 05:00 05/16/23 05:00 FiO2 35 05/15/23 05:00 Oxygen Flow Rate (L/min) 3 Oxygen Delivery Method Nasal Cannula Weight: 108 lb 3.951 oz Body Mass Index (BMI) 19.1 Intake & Output: Intake and Output for Last 24 Hours 05/14/23 05/15/23 05/16/23 23:59 23:59 23:59 Intake Total 2978.37 / 3045.17 1418.38 / 1418.38 Output Total 660 / 810 835 / 1135 700 / 700 Balance 2318.37 / 2235.17 583.38 / 283.38 -700 / -700 Medical Nutrition Assessment Dietitian: Malnutrition Criteria Met Start: 05/14/23 11:27 Freq: Status: Active Protocol: Document 05/15/23 10:44 RMA (Rec: 05/15/23 10:45 RMA [id number]) Nutrition Malnutrition Evidence of Malnutrition Exists Yes Malnutrition (severe): Chronic Evidenced By Suboptimal Energy Intake ( Moderate),Weight Loss (Severe) ,Physical Changes (Moderate) Intake Problem Inadequate Oral Intake Etiology related to increased respiratory needs/intubated Signs/Symptoms as evidenced by NPO and currently no enteral nutrition support Status Resolved Problem Clinical Problem Chronic Disease or Condition Related Malnutrition Etiology Severe protein-calorie malnutrition in the context of chronic disease related to inadequate oral intake and increased energy expenditure Signs/Symptoms as evidenced by ~24% weight loss x 1-2 years, PO meeting less than 50% estimated nutrition needs, BMI 18.5, currently NPO, visible fat depletion and muscle wasting in the clavicle, face, orbitals, arms and legs Status Active Problem Recommendation Dietitian Recommendations/Changes Continue liberalized Regular diet as tolerated with no milk to drink or dairy/milk- containing products. Will add 240mL ensure clear TID w/ meals as tolerated. Encourage PO at meals and intake of ONS to prevent further caloric depletion. Lab / Micro Data Attestation: I reviewed the patient's lab results. 05/16/23 03:57 05/16/23 03:57 Labs: Laboratory Results - last 24 hr 05/16/23 03:57: WBC 5.7, RBC 3.40 L, Hgb 8.9 L, Hct 28.1 L, MCV 82.6, MCH 26.2 L, MCHC 31.7 L, RDW Std Deviation 52.8 H, RDW Coeff of Jacinto 17.9 H, Plt Count 204, MPV 10.6, Immature Gran % (Auto) 0.500, Neut % (Auto) 89.3 H, Lymph % (Auto) 5.6 L, [place] % (Auto) 4.4, Eos % (Auto) 0.0, Baso % (Auto) 0.2, Absolute Neuts (auto) 5.1, Absolute Lymphs (auto) 0.32 L, Nucleated RBC % 0, Anisocytosis 1+, Sodium 140, Potassium 3.7, Chloride 100, Carbon Dioxide 37.0 H, Anion Gap 3 L, BUN 11, Creatinine 0.28 L, Estim Creat Clear Calc 36.52, Est GFR (MDRD) Af Amer 303, Est GFR (MDRD) Non-Af 250, BUN/Creatinine Ratio 39.6 H, Glucose 105, Calcium 8.3 L Micro: Microbiology 05/13/23 19:10 Sputum, Induced/Lukens Gram Stain - Final 05/13/23 19:10 Sputum, Induced/Lukens Respiratory Culture - Preliminary Appears to be normal respiratory senait. Further studies to follow. 05/13/23 18:20 Urine, Catheterized Urine Culture - Final Culture exhibits no growth. 05/14/23 01:57 Urine Catheter - Hood Legionella Antigen - Final 05/14/23 01:57 Urine Catheter - Hood Streptococcus pneumoniae Antigen (M - Final 05/13/23 21:38 Mucosa - Nose Respiratory Panel (PCR) - Final 05/13/23 18:20 Nasal Secretion SARS-CoV-2 Antigen (Rapid) - Final Physical Exam Const alert and no apparent distress General Appearance: cooperative HEENT normocephalic and head/scalp atraumatic Eyes PERRL, EOMs intact bilaterally and conjunctivae normal Neck supple General: trachea midline Resp normal respiratory effort Auscultation: diminished lung sounds; Negative for rales, rhonchi or wheezes Cardio regular rate and regular rhythm GI normal to inspection, nondistended, normoactive bowel sounds Extremity no clubbing, cyanosis or edema Skin no rashes or lesions noted Neuro CN's II-XII intact bilaterally and no focal motor deficits Psych cooperative and affect normal Charges/Coding Visit Charges Inpatient E&M: 28377 Subs Hosp L3
[2023-05-16] MEDS: Ipratropium/Albuterol Sulfate 3 ML AMPUL.NEB INHALATION ×5 (07:29→23:31)
[2023-05-16] MEDS: Gabapentin 300 MG Capsule PO (08:33)
[2023-05-16] MEDS: Potassium Chloride Oral Tablet 20 MEQ PO (08:33)
[2023-05-16] MEDS: Aspirin 81 MG TAB.CHEW PO (08:34)
[2023-05-16] MEDS: Multivitamins,Ther W-Minerals Tablet 1 TABLET PO (08:34)
[2023-05-16] MEDS: Cyanocobalamin 500 MCG Tablet 2000 MCG PO (08:34)
[2023-05-16] MEDS: Ferrous Sulfate 325 MG Tablet PO (08:34)
[2023-05-16] MEDS: Fluticasone 0.05% 1 SPRAY NASAL.SRY NASAL ×2 (08:35→21:44)
[2023-05-16] MEDS: busPIRone 5 MG Tablet 10 MG PO ×2 (08:35→21:44)
--- NOTE | 2023-05-16 08:55 | CASEMGMT ---
Addendum entered by Norma Johnson 05/16/23 09:12: Social Work SW spoke w/bedside RN, pt is to be transferred to PCU today, and possibly discharged tomorrow. SW called Rosanna at [facility], let her know this information. She plans to reach out to son Juan C today, and will let SW know today or tomorrow once she speaks w/him. SW will continue to follow. GIGI Cason Original Note: Social Work SW called [facility]. Rosanna([phone]) from [facility] is to be getting in touch w/pt's son. SW explained will call Rosanna after ICU rounds to let her know anticipated discharge date. ZAIDA also asked for fax number to fax over hospice order. ZAIDA faxed hospice order to [facility](F: [phone]). SW will follow up after rounds. GIGI Cason
[2023-05-16] MEDS: Ondansetron 4 MG/2 ML Vial IV (09:57)
[2023-05-16] MEDS: LORazepam 0.5 MG Tablet PO ×2 (09:57→21:43)
[2023-05-16] MEDS: Loratadine 10 MG Tablet PO (09:58)
[2023-05-16] MEDS: Famotidine 20 MG Tablet 40 MG PO (09:58)
[2023-05-16] MEDS: Furosemide 40 MG Tablet PO (09:58)
[2023-05-16] MEDS: APIXABAN 5 MG TABLET PO ×2 (09:58→21:43)
--- NOTE | 2023-05-16 10:38 | CASEMGMT ---
Social Work POA for healthcare with Living will provision initialed is scanned into the echart, son Gene is listed as healthcare POA. GIGI Cason
--- NOTE | 2023-05-16 13:47 | PN_ITS ---
Subjective Subjective Patient seen and examined. She had no active complaints and had an uneventful night. She is now on 3L of oxygen. Review of systems is otherwise negative. She has remained hemodynamically stable. Objective Data Objective Data Vital Signs: Vital Signs Temp Pulse Resp BP Pulse Ox O2 Del Method O2 Flow Rate 97.5 F L 98 26 H 129/66 H 97 Nasal Cannula 3 05/16/23 10:00 05/16/23 10:58 05/16/23 10:58 05/16/23 10:00 05/16/23 08:31 05/16/23 10:00 05/16/23 08:31 FiO2 35 05/15/23 05:00 Oxygen Flow Rate (L/min) 3 Oxygen Delivery Method Nasal Cannula Weight: 108 lb 3.951 oz Body Mass Index (BMI) 19.1 Intake & Output: Intake and Output for Last 24 Hours 05/14/23 05/15/23 05/16/23 23:59 23:59 23:59 Intake Total 2978.37 / 3045.17 1418.38 / 1418.38 150 / 150 Output Total 660 / 810 835 / 1135 950 / 950 Balance 2318.37 / 2235.17 583.38 / 283.38 -800 / -800 Medical Nutrition Assessment Dietitian: Malnutrition Criteria Met Start: 05/14/23 11:27 Freq: Status: Active Protocol: Document 05/15/23 10:44 RMA (Rec: 05/15/23 10:45 RMA [id number]) Nutrition Malnutrition Evidence of Malnutrition Exists Yes Malnutrition (severe): Chronic Evidenced By Suboptimal Energy Intake ( Moderate),Weight Loss (Severe) ,Physical Changes (Moderate) Intake Problem Inadequate Oral Intake Etiology related to increased respiratory needs/intubated Signs/Symptoms as evidenced by NPO and currently no enteral nutrition support Status Resolved Problem Clinical Problem Chronic Disease or Condition Related Malnutrition Etiology Severe protein-calorie malnutrition in the context of chronic disease related to inadequate oral intake and increased energy expenditure Signs/Symptoms as evidenced by ~24% weight loss x 1-2 years, PO meeting less than 50% estimated nutrition needs, BMI 18.5, currently NPO, visible fat depletion and muscle wasting in the clavicle, face, orbitals, arms and legs Status Active Problem Recommendation Dietitian Recommendations/Changes Continue liberalized Regular diet as tolerated with no milk to drink or dairy/milk- containing products. Will add 240mL ensure clear TID w/ meals as tolerated. Encourage PO at meals and intake of ONS to prevent further caloric depletion. Lab / Micro Data 05/16/23 03:57 05/16/23 03:57 Labs: Laboratory Results - last 24 hr 05/16/23 03:57: WBC 5.7, RBC 3.40 L, Hgb 8.9 L, Hct 28.1 L, MCV 82.6, MCH 26.2 L , MCHC 31.7 L, RDW Std Deviation 52.8 H, RDW Coeff of Jacinto 17.9 H, Plt Count 204, MPV 10.6, Immature Gran % (Auto) 0.500, Neut % (Auto) 89.3 H, Lymph % (Auto) 5.6 L, [place] % (Auto) 4.4, Eos % (Auto) 0.0, Baso % (Auto) 0.2, Absolute Neuts (auto) 5.1, Absolute Lymphs (auto) 0.32 L, Nucleated RBC % 0, Anisocytosis 1+, Sodium 140, Potassium 3.7, Chloride 100, Carbon Dioxide 37.0 H, Anion Gap 3 L, BUN 11, Creatinine 0.28 L, Estim Creat Clear Calc 36.52, Est GFR (MDRD) Af Amer 303, Est GFR (MDRD) Non-Af 250, BUN/Creatinine Ratio 39.6 H, Glucose 105, Calcium 8.3 L Micro: Microbiology 05/13/23 19:10 Sputum, Induced/Lukens Gram Stain - Final 05/13/23 19:10 Sputum, Induced/Lukens Respiratory Culture - Preliminary Yeast Like Organism 05/14/23 04:30 Blood Culture (Wb) - Right Forearm Blood Culture - Preliminary No growth in 48 hours. 05/13/23 18:24 Blood Culture (Wb) - Left Wrist Blood Culture - Preliminary No growth in 48 hours. 05/13/23 18:20 Blood Culture (Wb) - Anticubital Left Blood Culture - Preliminary No growth in 48 hours. 05/13/23 18:20 Urine, Catheterized Urine Culture - Final Culture exhibits no growth. 05/14/23 01:57 Urine Catheter - Hood Legionella Antigen - Final 05/14/23 01:57 Urine Catheter - Hood Streptococcus pneumoniae Antigen (M - Final 05/13/23 21:38 Mucosa - Nose Respiratory Panel (PCR) - Final 05/13/23 18:20 Nasal Secretion SARS-CoV-2 Antigen (Rapid) - Final Physical Exam Const alert, oriented x3 and no apparent distress; Negative for average body habitus, healthy appearing or well nourished Constitutional Narrative: on 3L of oxygen, frail General Appearance: cooperative HEENT normocephalic, head/scalp atraumatic, moist oral mucous membranes and oropharynx normal Eyes PERRL, EOMs intact bilaterally and conjunctivae normal Neck no lymphadenopathy, No supple, No no JVD and no carotid bruits Lymph Lymphatic: no lymphedema noted; Negative for no lymphadenopathy noted Resp No normal respiratory effort, normal air movement, no retractions and no use of accessory muscles Resp Narrative: diminished breath sounds bibasally, no wheezes or crackles. Auscultation: Negative for rales or rhonchi Cardio regular rate, regular rhythm, S1 normal heart sound, S2 normal heart sound, no murmurs, no rub, no gallops and no clicks Palpation: normal PMI GI normal to inspection, nondistended, normoactive bowel sounds and soft to palpation Extremity normal capillary refill and no clubbing, cyanosis or edema Extremity Narrative: Decreased lean muscle mass Skin no rashes or lesions noted, no wounds, skin turgor normal, no jaundice, no petechiae and no mottling General Skin Exam: no breakdown Neuro CN's II-XII intact bilaterally, moves all extremities and no focal motor deficits Speech: Negative for speech normal Motor Exam: strength 5/5 throughout Psych thought process normal and cooperative Appearance: appropriate Assessment & Plan Assessment/Plan (1) Pulmonary cachexia due to COPD: PLAN: Plan #Acute on chronic hypoxic and hypercapnic respiratory failure due to pneumonia and COPD exacerbation * now extubated. * was enrolled in hospice until the week prior to admission when she was dis- enrolled due to noncompliance and her smoking at home whilst her oxygen was on * covid test was negative * may be due to COPD exacerbation * on IV solumedrol * respiratory panel was negative * intubated after she didn't improve on BIPAP * critical care on board * on IV lasix * now extubated and on 3L of oxygen. * on amikacin and azithromycin; has numerous listed allergies * #Severe protein calorie malnutrition * due to severe pulmonary cachexia * dietitian on board. * has suppposedly had considerable weight loss over the past 6 months whilst being in hospice. * dietitian on board * #History of PE: on eliquis #Anemia: on eliquis. stool for occult blood as well as ferritin and iron studies pending. #Osteoporosis: alendronate on board. #GERD; on IV PPI DVT prophylaxis: on eliquis Disposition: transfer from ICU to PCU today. PT/OT consulted to help disposition. Charges/Coding Visit Charges Inpatient E&M: 33124 Subs Hosp L2
[2023-05-16] MEDS: proMETHazine 25 MG Tablet PO (15:48)
[2023-05-16] MEDS: Senna/Docusate Sodium 1 Tablet 2 TABLET PO (21:43)
[2023-05-16] MEDS: traZODone 50 MG Tablet PO (21:43)
[2023-05-16] MEDS: Pramipexole Di-HCl 0.25 MG Tablet PO (21:43)
[2023-05-16] MEDS: Citalopram 20 MG Tablet PO (21:43)
[2023-05-17] VITALS (15 sets, daily range): BP systolic 112–138; BP diastolic 59–93; PULSE 87–123; RESP 16–26; TEMP 36.3–37.5; O2SAT 92–100; BMI 17.5
[2023-05-17] MEDS: Ondansetron 4 MG/2 ML Vial IV (01:26)
[2023-05-17] MEDS: 0.9% Saline Lock 10 ML Syringe IV ×2 (01:26→13:51)
[2023-05-17] MEDS: Ipratropium/Albuterol Sulfate 3 ML AMPUL.NEB INHALATION ×6 (03:35→23:36)
[2023-05-17 03:40] LABS: Absolute Lymphocyte Count 0.56 X10^3/uL (0.83-4.51); Absolute Neutrophil Count 7.7 X10^3/uL (2.0-7.7); Basophil# 0.01 X10^3/uL; Basophil% 0.1 % (0-1); Hematocrit 32.4 % (37-47); Hemoglobin 10.1 g/dL (12.0-15.0); Lymphocyte # 0.56 X10^3/ul (0.83-4.51); Lymphocyte % 6.4 % (19-41); Mean Corp Hgb Conc 31.2 g/dL (32-36); Mean Corpuscular Hgb 26.1 pg (27.0-32.0); Mean Corpuscular Volume 83.7 fL (81-99); Mean Platelet Vol. 10.6 fl (6.2-12.0); Monocyte# 0.47 X10^3/uL; Monocyte% 5.4 % (0-10); NRBC Flagged by Analyzer 0 % (0-5); Neutrophil % 87.6 % (47-70); POSITIVE DIFFERENTIAL YES; Platelet Count 241 K/mm3 (150-450); RBC Distribution Width CV 18.2 % (11.6-14.6); RBC Distribution Width SD 54.4 fl (35.1-43.9); Red Blood Count 3.87 M/mm3 (4.2-5.4); White Blood Count 8.8 K/mm3 (4.4-11.0)
[2023-05-17 03:49] LABS: Anion Gap 8 (5-15); BUN 13 mg/dL (7-18); BUN/Creat Ratio 38.8 RATIO (10-20); Calcium,Total 8.3 mg/dL (8.5-10.1); Chloride 94 mmol/L (98-107); Creatinine, Serum 0.34 mg/dL (0.55-1.02); EST Glomerular Filtration Rate 202 mL/min (>60); Est Glom Filt Rate - Afr Amer 244 mL/min (>60); Estimated Creatinine Clearance 36.52 ml/min; Glucose 100 mg/dL (74-106); Potassium 3.4 mmol/L (3.5-5.1); Sodium Level 136 mmol/L (136-145)
[2023-05-17 03:55] LABS: Differential Indicated SCAN CRITERIA MET
[2023-05-17 04:32] LABS: Anisocytosis 1+
[2023-05-17 04:33] LABS: Hypochromasia 1+
[2023-05-17] MEDS: Methylprednisolone Sod Succ 40 MG/ML VIAL IV ×3 (05:11→21:47)
--- NOTE | 2023-05-17 07:26 | PN.HOSP_ITS ---
Reason for Visit Reason for Visit: Diagnoses Anemia, unspecified (05/13/23) Unspecified severe protein-calorie malnutrition (05/13/23) Chronic obstructive pulmonary disease with (acute) exacerbation (05/13/23) Chronic obstructive pulmonary disease, unspecified (05/13/23) Acute and chronic respiratory failure with hypoxia (05/13/23) Acute and chronic respiratory failure with hypercapnia (05/13/23) Cachexia (05/13/23) Other nonspecific abnormal finding of lung field (05/13/23) Subjective Subjective Slowly feeling better, is coughing with intermittent sputum production, has had poor appetite so has not been eating well and then feels sick after her pills, minimal actual abdominal tenderness and is having bowel movements without difficulty, feels her breathing is close to baseline and reports using about 5 L home O2 Objective Data Objective Data Vital Signs: Vital Signs Temp Pulse Resp BP Pulse Ox O2 Del Method O2 Flow Rate 98.6 F 100 20 H 138/78 H 92 Nasal Cannula 3 05/17/23 04:00 05/17/23 04:00 05/17/23 04:00 05/17/23 04:00 05/17/23 04:00 05/17/23 04:00 05/17/23 04:00 FiO2 35 05/15/23 05:00 Oxygen Flow Rate (L/min) 3 Oxygen Delivery Method Nasal Cannula Weight: 45 kg Body Mass Index (BMI) 17.5 Intake & Output: Intake and Output for Last 24 Hours 05/15/23 05/16/23 05/17/23 23:59 23:59 23:59 Intake Total 1418.38 / 1418.38 655 / 655 Output Total 835 / 1135 1350 / 1550 200 / 200 Balance 583.38 / 283.38 -695 / -895 -200 / -200 Medical Nutrition Assessment Dietitian: Malnutrition Criteria Met Start: 05/14/23 11:27 Freq: Status: Active Protocol: Document 05/15/23 10:44 RMA (Rec: 05/15/23 10:45 RMA [id number]) Nutrition Malnutrition Evidence of Malnutrition Exists Yes Malnutrition (severe): Chronic Evidenced By Suboptimal Energy Intake ( Moderate),Weight Loss (Severe) ,Physical Changes (Moderate) Intake Problem Inadequate Oral Intake Etiology related to increased respiratory needs/intubated Signs/Symptoms as evidenced by NPO and currently no enteral nutrition support Status Resolved Problem Clinical Problem Chronic Disease or Condition Related Malnutrition Etiology Severe protein-calorie malnutrition in the context of chronic disease related to inadequate oral intake and increased energy expenditure Signs/Symptoms as evidenced by ~24% weight loss x 1-2 years, PO meeting less than 50% estimated nutrition needs, BMI 18.5, currently NPO, visible fat depletion and muscle wasting in the clavicle, face, orbitals, arms and legs Status Active Problem Recommendation Dietitian Recommendations/Changes Continue liberalized Regular diet as tolerated with no milk to drink or dairy/milk- containing products. Will add 240mL ensure clear TID w/ meals as tolerated. Encourage PO at meals and intake of ONS to prevent further caloric depletion. Lab / Micro Data 05/17/23 03:28 05/17/23 03:28 Labs: Laboratory Results - last 24 hr 05/17/23 03:28: WBC 8.8, RBC 3.87 L, Hgb 10.1 L, Hct 32.4 L, MCV 83.7, MCH 26.1 L, MCHC 31.2 L, RDW Std Deviation 54.4 H, RDW Coeff of Jacinto 18.2 H, Plt Count 241, MPV 10.6, Immature Gran % (Auto) 0.500, Neut % (Auto) 87.6 H, Lymph % (Auto) 6.4 L, [place] % (Auto) 5.4, Eos % (Auto) 0.0, Baso % (Auto) 0.1, Absolute Neuts (auto) 7.7, Absolute Lymphs (auto) 0.56 L, Nucleated RBC % 0, Hypochromasia 1+, Anisocytosis 1+, Sodium 136, Potassium 3.4 L, Chloride 94 L, Carbon Dioxide 34.0 H, Anion Gap 8, BUN 13, Creatinine 0.34 L, Estim Creat Clear Calc 36.52, Est GFR (MDRD) Af Amer 244, Est GFR (MDRD) Non-Af 202, BUN/Creatinine Ratio 38.8 H, Glucose 100, Calcium 8.3 L Micro: Microbiology 05/13/23 19:10 Sputum, Induced/Lukens Gram Stain - Final 05/13/23 19:10 Sputum, Induced/Lukens Respiratory Culture - Preliminary Yeast Like Organism 05/14/23 04:30 Blood Culture (Wb) - Right Forearm Blood Culture - Preliminary No growth in 48 hours. 05/13/23 18:24 Blood Culture (Wb) - Left Wrist Blood Culture - Preliminary No growth in 48 hours. 05/13/23 18:20 Blood Culture (Wb) - Anticubital Left Blood Culture - Preliminary No growth in 48 hours. 05/13/23 18:20 Urine, Catheterized Urine Culture - Final Culture exhibits no growth. 05/14/23 01:57 Urine Catheter - Hood Legionella Antigen - Final 05/14/23 01:57 Urine Catheter - Hood Streptococcus pneumoniae Antigen (M - Final 05/13/23 21:38 Mucosa - Nose Respiratory Panel (PCR) - Final 05/13/23 18:20 Nasal Secretion SARS-CoV-2 Antigen (Rapid) - Final Physical Exam Narrative General: Alert, no apparent distress HEENT: Atraumatic, normocephalic Eyes: Anicteric, normal conjunctiva, extraocular movements grossly intact Neck: Supple Respiratory: Diffuse wheezes, slightly diminished left greater than right, very mild increased work of breathing with conversation Cardiovascular: Regular rate GI: Soft, nontender, nondistended, no rebound, guarding, rigidity Extremities: No edema Musculoskeletal: Moving all extremities Neuro: No overt focal neurological deficits Skin: No rashes appreciated Psych: Cooperative Assessment & Plan Assessment/Plan (1) Pulmonary cachexia due to COPD: PLAN: Plan #Acute on chronic hypoxic and hypercapnic respiratory failure due to pneumonia and COPD exacerbation -Admitted 05/13, CT at that time demonstrated patchy bibasilar infiltrates suspicious for infection and stable nodules in right apex and right upper lobe with 2-year period of stability and no further follow-up recommended, ultimately required intubation after she failed to improve on BiPAP, IV steroids, IV antibiotics with amikacin and azithromycin due to multiple medication allergies listed as anaphylaxis, nebs. COVID test was negative, critical care on board. Patient ultimately extubated. -[place] to be a component of fluid overload so had been on IV diuretics which were ultimately transitioned to oral -Of note patient was enrolled in hospice until week prior to admission when she was disenrolled due to noncompliance and smoking while her home oxygen was on per report -05/17: Remains on IV steroids, pulm signed off, every 4 nebs with as needed albuterol. Patient has continued to be on 3 L, on chronic home O2 5 L, but O2 sat down trended to 92% and intermittently slightly tachypneic. Overall patient feels much better remains on azithromycin empirically, plan for 7 days. Cultures have been negative. Will de-escalate to oral Pred and continue nebs. Patient initially up 3 kg, has down trended again, continue oral Lasix #History of mood disturbance and anxiety -Patient on home citalopram, BuSpar, receiving lorazepam, trazodone nightly #Normocytic anemia -Hemoglobin 10.1 on 05/17 and appears to have vacillating level at baseline, patient initially had downtrend in hemoglobin with lowest 8.8 on 05/15 but no active blood loss appreciated, overall appears stable -Iron level 37 iron sat 11.5 with ferritin of 14 and TIBC 322 -Continue iron supplementation #Stable right lung nodules -CTA on admission demonstrated stable nodules in right apex and right upper lobe representing a 2-year period of stability and no further follow-up recommended #Severe protein calorie malnutrition * due to severe pulmonary cachexia * dietitian on board. * has supposedly had considerable weight loss over the past 6 months whilst be ing in hospice. * dietitian on board -05/17: Very poor appetite, has not been ordering trace has not been receiving her Ensure, will order Ensure separately, suspect not eating and taking all of the medication is worsening her nausea #History of PE: on eliquis #Osteoporosis: alendronate on board. DVT prophylaxis: on eliquis Disposition: PT/OT consulted to help disposition. Time spent in the patient's overall evaluation,decision-making process, review of diagnostic data, adjustment of management, discussion with other providers, nursing nursing and ancillary staff involved in patient's care documentation, 55 minutes Charges/Coding Visit Charges Inpatient E&M: 25265 Subs Hosp L3
[2023-05-17] MEDS: Multivitamins,Ther W-Minerals Tablet 1 TABLET PO (08:26)
[2023-05-17] MEDS: Aspirin 81 MG TAB.CHEW PO (08:26)
[2023-05-17] MEDS: Ferrous Sulfate 325 MG Tablet PO (08:27)
[2023-05-17] MEDS: Potassium Chloride Oral Tablet 20 MEQ PO ×2 (08:27→08:34)
[2023-05-17] MEDS: Gabapentin 300 MG Capsule PO (08:28)
[2023-05-17] MEDS: LORazepam 0.5 MG Tablet PO ×2 (10:39→21:51)
[2023-05-17] MEDS: Loratadine 10 MG Tablet PO (10:39)
[2023-05-17] MEDS: Cyanocobalamin 500 MCG Tablet 2000 MCG PO (10:40)
[2023-05-17] MEDS: Furosemide 40 MG Tablet PO (10:40)
[2023-05-17] MEDS: APIXABAN 5 MG TABLET PO ×2 (10:40→21:46)
[2023-05-17] MEDS: busPIRone 5 MG Tablet 10 MG PO ×2 (10:41→21:46)
[2023-05-17] MEDS: Famotidine 20 MG Tablet 40 MG PO (10:41)
[2023-05-17] MEDS: Fluticasone 0.05% 1 SPRAY NASAL.SRY NASAL ×2 (10:41→21:47)
--- NOTE | 2023-05-17 11:52 | CASEMGMT ---
Social Work Telephone call to patient son to clarify if patient has been accepted to [facility], Juan C is not sure and reports to have spoken to [facility] and to be under the impression that patient is accepted. This addiction social worker also inquired if plan is for patient to return to home. Juan C states to be concerned that patient will be able to be alone in the home and be safe. This addiction social worker to follow up with patient for patient wishes as Juan C is not sure. Telephone call to [facility], Rosanna ([phone]). No answer. VM left. PLAN: [facility] MEDICATION NURSE, LUANN-S
[2023-05-17] MEDS: Ensure Clear 120 ML Liquid PO ×3 (12:30→21:52)
--- NOTE | 2023-05-17 13:56 | CASEMGMT ---
Social Work Referral source: Discharge planning This oncology social worker being notified by patient physician that there is concern of patient returning to home and recommendation is senior care with hospice services. This oncology social worker met with patient in room. Introduced self and oncology social worker role. This oncology social worker broached topic of senior care placement as physician is concerned about patient returning to home. Patient states to also be concerned about returning to home. Patient states to be interested in a senior care placement and request for this oncology social worker to provide list of nursing facilities to patient Juan C worthy to review. This oncology social worker updated Juan C on above information. Gene agreeable to senior care placement. This oncology social worker provided Gene with list of nursing facilities that are local to patient geographical region and in-network with patient insurance. Telephone call to [facility], Rosanna. This oncology social worker updated Rosanna on above information. Rosanna confirms that patient has been accepted to [facility]. PLAN: halfway, intermediate level of care with hospice services. Social Work to continue to follow. Martha FARRIS, JOBYS
[2023-05-17] MEDS: Acetaminophen 325 MG Tablet 650 MG PO ×2 (14:10→22:09)
--- NOTE | 2023-05-17 15:59 | CASEMGMT ---
Social Work This professor of social work met with patient son, Juan C. Juan C reports choices for correction are 1) [facility], 2) [facility] 3) [place] 4) [facility]. Discharge materials planning analyst, Diana updated on above and will send referrals. PLAN: Nursing facility, intermediate level of care with hospice services through [facility]. Martha Mancera MSW, POLICE CRIME SCENE TECHNICIAN-S
--- NOTE | 2023-05-17 16:24 | CASEMGMT ---
Discharge Planning Referral sent to Mich Dyer via [facility]. Diana Jennings, Discharge Planning Asst.
[2023-05-17] MEDS: traZODone 50 MG Tablet PO (21:46)
[2023-05-17] MEDS: Citalopram 20 MG Tablet PO (21:46)
[2023-05-17] MEDS: Pramipexole Di-HCl 0.25 MG Tablet PO (21:47)
[2023-05-17] MEDS: Senna/Docusate Sodium 1 Tablet 2 TABLET PO (21:47)
[2023-05-18] VITALS (13 sets, daily range): BP systolic 118–137; BP diastolic 65–87; PULSE 86–113; RESP 16–23; TEMP 36.6–37.4; O2SAT 93–98; BMI 16.5
[2023-05-18] MEDS: Ipratropium/Albuterol Sulfate 3 ML AMPUL.NEB INHALATION ×5 (03:24→20:20)
[2023-05-18 03:26] LABS: Absolute Lymphocyte Count 0.47 X10^3/uL (0.83-4.51); Absolute Neutrophil Count 7.9 X10^3/uL (2.0-7.7); Hematocrit 34.6 % (37-47); Hemoglobin 11.1 g/dL (12.0-15.0); Lymphocyte # 0.47 X10^3/ul (0.83-4.51); Lymphocyte % 5.4 % (19-41); Mean Corp Hgb Conc 32.1 g/dL (32-36); Mean Corpuscular Hgb 26.1 pg (27.0-32.0); Mean Corpuscular Volume 81.2 fL (81-99); Mean Platelet Vol. 10.1 fl (6.2-12.0); Monocyte% 3.4 % (0-10); NRBC Flagged by Analyzer 0 % (0-5); Neutrophil # 7.94 X10^3/uL (2.7-7.7); Neutrophil % 90.9 % (47-70); POSITIVE DIFFERENTIAL YES; Platelet Count 251 K/mm3 (150-450); RBC Distribution Width CV 17.9 % (11.6-14.6); RBC Distribution Width SD 51.9 fl (35.1-43.9); Red Blood Count 4.26 M/mm3 (4.2-5.4); White Blood Count 8.7 K/mm3 (4.4-11.0)
[2023-05-18 03:27] LABS: Differential Indicated SCAN CRITERIA MET
[2023-05-18 03:40] LABS: Anion Gap 7 (5-15); BUN 11 mg/dL (7-18); BUN/Creat Ratio 34.6 RATIO (10-20); Calcium,Total 8.5 mg/dL (8.5-10.1); Chloride 91 mmol/L (98-107); Creatinine, Serum 0.32 mg/dL (0.55-1.02); EST Glomerular Filtration Rate 214 mL/min (>60); Est Glom Filt Rate - Afr Amer 259 mL/min (>60); Estimated Creatinine Clearance 33.47 ml/min; Glucose 125 mg/dL (74-106); Potassium 3.5 mmol/L (3.5-5.1); Sodium Level 134 mmol/L (136-145)
[2023-05-18 04:12] LABS: Differential Comment SCANNED
--- NOTE | 2023-05-18 07:16 | PN.HOSP_ITS ---
Reason for Visit Reason for Visit: Diagnoses Anemia, unspecified (05/13/23) Unspecified severe protein-calorie malnutrition (05/13/23) Chronic obstructive pulmonary disease with (acute) exacerbation (05/13/23) Chronic obstructive pulmonary disease, unspecified (05/13/23) Acute and chronic respiratory failure with hypoxia (05/13/23) Acute and chronic respiratory failure with hypercapnia (05/13/23) Cachexia (05/13/23) Other nonspecific abnormal finding of lung field (05/13/23) Subjective Subjective Patient feels she is close to being back to baseline, also eating better and no more nausea Objective Data Objective Data Vital Signs: Vital Signs Temp Pulse Resp BP Pulse Ox O2 Del Method O2 Flow Rate 98.7 F 86 22 H 124/73 H 98 Nasal Cannula 3 05/18/23 05:23 05/18/23 06:54 05/18/23 06:54 05/18/23 05:23 05/18/23 05:23 05/18/23 06:54 05/18/23 06:54 FiO2 35 05/15/23 05:00 Oxygen Flow Rate (L/min) 3 Oxygen Delivery Method Nasal Cannula Weight: 42.3 kg Body Mass Index (BMI) 16.5 Intake & Output: Intake and Output for Last 24 Hours 05/16/23 05/17/23 05/18/23 23:59 23:59 23:59 Intake Total 655 / 655 320 / 420 405 / 405 Output Total 1350 / 1550 500 / 700 200 / 200 Balance -695 / -895 -180 / -280 205 / 205 Medical Nutrition Assessment Dietitian: Malnutrition Criteria Met Start: 05/14/23 11:27 Freq: Status: Active Protocol: Document 05/15/23 10:44 RMA (Rec: 05/15/23 10:45 RMA [id number]) Nutrition Malnutrition Evidence of Malnutrition Exists Yes Malnutrition (severe): Chronic Evidenced By Suboptimal Energy Intake ( Moderate),Weight Loss (Severe) ,Physical Changes (Moderate) Intake Problem Inadequate Oral Intake Etiology related to increased respiratory needs/intubated Signs/Symptoms as evidenced by NPO and currently no enteral nutrition support Status Resolved Problem Clinical Problem Chronic Disease or Condition Related Malnutrition Etiology Severe protein-calorie malnutrition in the context of chronic disease related to inadequate oral intake and increased energy expenditure Signs/Symptoms as evidenced by ~24% weight loss x 1-2 years, PO meeting less than 50% estimated nutrition needs, BMI 18.5, currently NPO, visible fat depletion and muscle wasting in the clavicle, face, orbitals, arms and legs Status Active Problem Recommendation Dietitian Recommendations/Changes Continue liberalized Regular diet as tolerated with no milk to drink or dairy/milk- containing products. Will add 240mL ensure clear TID w/ meals as tolerated. Encourage PO at meals and intake of ONS to prevent further caloric depletion. Lab / Micro Data 05/18/23 03:20 05/18/23 03:20 Labs: Laboratory Results - last 24 hr 05/18/23 03:20: WBC 8.7, RBC 4.26, Hgb 11.1 L, Hct 34.6 L, MCV 81.2, MCH 26.1 L, MCHC 32.1, RDW Std Deviation 51.9 H, RDW Coeff of Jacinto 17.9 H, Plt Count 251, MPV 10.1, Immature Gran % (Auto) 0.300, Neut % (Auto) 90.9 H, Lymph % (Auto) 5.4 L, [place] % (Auto) 3.4, Eos % (Auto) 0.0, Baso % (Auto) 0.0, Absolute Neuts (auto) 7.9 H, Absolute Lymphs (auto) 0.47 L, Nucleated RBC % 0, Differential Comment SCANNED, Sodium 134 L, Potassium 3.5, Chloride 91 L, Carbon Dioxide 36.0 H, Anion Gap 7, BUN 11, Creatinine 0.32 L, Estim Creat Clear Calc 33.47, Est GFR (MDRD) Af Amer 259, Est GFR (MDRD) Non-Af 214, BUN/Creatinine Ratio 34.6 H, Glucose 125 H, Calcium 8.5 Micro: Microbiology 05/13/23 19:10 Sputum, Induced/Lukens Gram Stain - Final 05/13/23 19:10 Sputum, Induced/Lukens Respiratory Culture - Final Yeast, not Roro albicans 05/14/23 04:30 Blood Culture (Wb) - Right Forearm Blood Culture - Preliminary No growth in 48 hours. 05/13/23 18:24 Blood Culture (Wb) - Left Wrist Blood Culture - Preliminary No growth in 48 hours. 05/13/23 18:20 Blood Culture (Wb) - Anticubital Left Blood Culture - Preliminary No growth in 48 hours. 05/13/23 18:20 Urine, Catheterized Urine Culture - Final Culture exhibits no growth. 05/14/23 01:57 Urine Catheter - Hood Legionella Antigen - Final 05/14/23 01:57 Urine Catheter - Hood Streptococcus pneumoniae Antigen (M - Final 05/13/23 21:38 Mucosa - Nose Respiratory Panel (PCR) - Final 05/13/23 18:20 Nasal Secretion SARS-CoV-2 Antigen (Rapid) - Final Physical Exam Narrative General: Alert, no apparent distress HEENT: Atraumatic, normocephalic Eyes: Anicteric, normal conjunctiva, extraocular movements grossly intact Neck: Supple Respiratory: Improved work of breathing and better airflow bilaterally Cardiovascular: Regular rate GI: Soft, nontender, nondistended, no rebound, guarding, rigidity Extremities: No edema Musculoskeletal: Moving all extremities Neuro: No overt focal neurological deficits Skin: No rashes appreciated Psych: Cooperative Assessment & Plan Assessment/Plan (1) Pulmonary cachexia due to COPD: PLAN: Plan #Acute on chronic hypoxic and hypercapnic respiratory failure due to pneumonia and COPD exacerbation -Admitted 05/13, CT at that time demonstrated patchy bibasilar infiltrates suspicious for infection and stable nodules in right apex and right upper lobe with 2-year period of stability and no further follow-up recommended, ultimately required intubation after she failed to improve on BiPAP, IV steroids, IV antibiotics with amikacin and azithromycin due to multiple medication allergies listed as anaphylaxis, nebs. COVID test was negative, critical care on board. Patient ultimately extubated. -[place] to be a component of fluid overload so had been on IV diuretics which were ultimately transitioned to oral -Of note patient was enrolled in hospice until week prior to admission when she was disenrolled due to noncompliance and smoking while her home oxygen was on per report -05/17: Remains on IV steroids, pulm signed off, every 4 nebs with as needed albuterol. Patient has continued to be on 3 L, on chronic home O2 5 L, but O2 sat down trended to 92% and intermittently slightly tachypneic. Overall patient feels much better remains on azithromycin empirically, plan for 7 days. Cultures have been negative. Will de-escalate to oral Pred and continue nebs. Patient initially up 3 kg, has down trended again, continue oral Lasix -05/18: Patient with pulse ox 98% on 3 L nasal cannula which is lower than her baseline, continue nebs, continue oral Lasix. Feel patient is stable to pursue placement with hospice. Referral sent to nursing facility for intermediate level care with hospice through pathway #History of mood disturbance and anxiety -Patient on home citalopram, BuSpar, receiving lorazepam, trazodone nightly -05/18: Continue present management #Normocytic anemia -Hemoglobin 10.1 on 05/17 and appears to have vacillating level at baseline, patient initially had downtrend in hemoglobin with lowest 8.8 on 05/15 but no active blood loss appreciated, overall appears stable -Iron level 37 iron sat 11.5 with ferritin of 14 and TIBC 322 -Continue iron supplementation -05/18: Has improved, continue current management #Stable right lung nodules -CTA on admission demonstrated stable nodules in right apex and right upper lobe representing a 2-year period of stability and no further follow-up recommended #Severe protein calorie malnutrition * due to severe pulmonary cachexia * dietitian on board. * has supposedly had considerable weight loss over the past 6 months whilst being in hospice. * dietitian on board -05/17: Very poor appetite, has not been ordering trace has not been receiving her Ensure, will order Ensure separately, suspect not eating and taking all of the medication is worsening her nausea -05/18: Eating slightly better today #History of PE: on eliquis #Osteoporosis: alendronate on board. DVT prophylaxis: on eliquis Disposition: PT/OT consulted to help disposition. Time spent in the patient's overall evaluation,decision-making process, review of diagnostic data, adjustment of management, discussion with other providers, nursing nursing and ancillary staff involved in patient's care documentation, 36 minutes Charges/Coding Visit Charges Inpatient E&M: 14678 Subs Hosp L2
[2023-05-18] MEDS: predniSONE 20 MG Tablet 60 MG PO (07:40)
[2023-05-18] MEDS: Aspirin 81 MG TAB.CHEW PO (07:40)
[2023-05-18] MEDS: Multivitamins,Ther W-Minerals Tablet 1 TABLET PO (07:40)
[2023-05-18] MEDS: Ferrous Sulfate 325 MG Tablet PO ×2 (07:40→16:13)
[2023-05-18] MEDS: Gabapentin 300 MG Capsule PO ×2 (07:40→16:13)
[2023-05-18] MEDS: Potassium Chloride Oral Tablet 20 MEQ PO (07:40)
[2023-05-18] MEDS: busPIRone 5 MG Tablet 10 MG PO ×2 (11:21→22:33)
[2023-05-18] MEDS: Loratadine 10 MG Tablet PO (11:21)
[2023-05-18] MEDS: APIXABAN 5 MG TABLET PO ×2 (11:22→22:35)
[2023-05-18] MEDS: Ensure Clear 120 ML Liquid PO (11:23)
[2023-05-18] MEDS: Fluticasone 0.05% 1 SPRAY NASAL.SRY NASAL ×2 (11:23→22:36)
[2023-05-18] MEDS: Furosemide 40 MG Tablet PO (11:24)
[2023-05-18] MEDS: Cyanocobalamin 500 MCG Tablet 2000 MCG PO (11:25)
[2023-05-18] MEDS: Famotidine 20 MG Tablet 40 MG PO (11:25)
[2023-05-18] MEDS: LORazepam 0.5 MG Tablet PO ×2 (11:32→22:41)
[2023-05-18] MEDS: Citalopram 20 MG Tablet PO (22:34)
[2023-05-18] MEDS: traZODone 50 MG Tablet PO (22:34)
[2023-05-18] MEDS: Pramipexole Di-HCl 0.25 MG Tablet PO (22:35)
[2023-05-18] MEDS: Senna/Docusate Sodium 1 Tablet 2 TABLET PO (22:35)
[2023-05-19] VITALS (8 sets, daily range): BP systolic 111–138; BP diastolic 71–80; PULSE 91–109; RESP 16–24; TEMP 36.4–36.9; O2SAT 93–100; BMI 16.5
[2023-05-19] MEDS: 0.9% Saline Lock 10 ML Syringe IV (03:39)
[2023-05-19] MEDS: Ondansetron 4 MG/2 ML Vial IV (03:39)
[2023-05-19 06:51] LABS: Absolute Lymphocyte Count 1.46 X10^3/uL (0.83-4.51); Absolute Neutrophil Count 5.8 X10^3/uL (2.0-7.7); Basophil# 0.02 X10^3/uL; Basophil% 0.2 % (0-1); Eosinophil# 0.08 X10^3/uL; Hematocrit 34.6 % (37-47); Hemoglobin 10.8 g/dL (12.0-15.0); Lymphocyte # 1.46 X10^3/ul (0.83-4.51); Lymphocyte % 17.3 % (19-41); Mean Corp Hgb Conc 31.2 g/dL (32-36); Mean Corpuscular Hgb 26.5 pg (27.0-32.0); Mean Corpuscular Volume 84.8 fL (81-99); Mean Platelet Vol. 9.7 fl (6.2-12.0); Monocyte# 1.04 X10^3/uL; Monocyte% 12.4 % (0-10); NRBC Flagged by Analyzer 0 % (0-5); Neutrophil # 5.79 X10^3/uL (2.7-7.7); Neutrophil % 68.7 % (47-70); Platelet Count 194 K/mm3 (150-450); RBC Distribution Width CV 18.4 % (11.6-14.6); RBC Distribution Width SD 56.5 fl (35.1-43.9); Red Blood Count 4.08 M/mm3 (4.2-5.4); White Blood Count 8.4 K/mm3 (4.4-11.0)
[2023-05-19 07:22] LABS: Anion Gap 2 (5-15); BUN 12 mg/dL (7-18); BUN/Creat Ratio 40.5 RATIO (10-20); Calcium,Total 8.3 mg/dL (8.5-10.1); Chloride 94 mmol/L (98-107); EST Glomerular Filtration Rate 233 mL/min (>60); Est Glom Filt Rate - Afr Amer 282 mL/min (>60); Estimated Creatinine Clearance 31.46 ml/min; Glucose 86 mg/dL (74-106); Potassium 3.1 mmol/L (3.5-5.1); Sodium Level 130 mmol/L (136-145)
[2023-05-19] MEDS: Ipratropium/Albuterol Sulfate 3 ML AMPUL.NEB INHALATION ×3 (07:22→21:22)
--- NOTE | 2023-05-19 09:29 | PCM.PN.HOSP ---
Reason for Visit Reason for Visit: Diagnoses Anemia, unspecified (05/13/23) Unspecified severe protein-calorie malnutrition (05/13/23) Chronic obstructive pulmonary disease with (acute) exacerbation (05/13/23) Chronic obstructive pulmonary disease, unspecified (05/13/23) Acute and chronic respiratory failure with hypoxia (05/13/23) Acute and chronic respiratory failure with hypercapnia (05/13/23) Cachexia (05/13/23) Other nonspecific abnormal finding of lung field (05/13/23) Subjective Subjective Feeling much better today, no acute complaints Objective Data Objective Data Vital Signs: Vital Signs Temp Pulse Resp BP Pulse Ox O2 Del Method O2 Flow Rate 97.6 F L 95 18 138/74 H 95 Nasal Cannula 2 05/19/23 03:33 05/19/23 07:23 05/19/23 07:23 05/19/23 03:33 05/19/23 07:23 05/19/23 08:45 05/19/23 08:45 FiO2 35 05/15/23 05:00 Oxygen Flow Rate (L/min) 2 Oxygen Delivery Method Nasal Cannula Weight: 42.3 kg Body Mass Index (BMI) 16.5 Intake & Output: Intake and Output for Last 24 Hours 05/17/23 05/18/23 05/19/23 23:59 23:59 23:59 Intake Total 320 / 420 405 / 525 240 / 240 Output Total 500 / 700 1050 / 1050 Balance -180 / -280 -645 / -525 240 / 240 Medical Nutrition Assessment Dietitian: Malnutrition Criteria Met Start: 05/14/23 11:27 Freq: Status: Active Protocol: Document 05/15/23 10:44 RMA (Rec: 05/15/23 10:45 RMA [id number]) Nutrition Malnutrition Evidence of Malnutrition Exists Yes Malnutrition (severe): Chronic Evidenced By Suboptimal Energy Intake ( Moderate),Weight Loss (Severe) ,Physical Changes (Moderate) Intake Problem Inadequate Oral Intake Etiology related to increased respiratory needs/intubated Signs/Symptoms as evidenced by NPO and currently no enteral nutrition support Status Resolved Problem Clinical Problem Chronic Disease or Condition Related Malnutrition Etiology Severe protein-calorie malnutrition in the context of chronic disease related to inadequate oral intake and increased energy expenditure Signs/Symptoms as evidenced by ~24% weight loss x 1-2 years, PO meeting less than 50% estimated nutrition needs, BMI 18.5, currently NPO, visible fat depletion and muscle wasting in the clavicle, face, orbitals, arms and legs Status Active Problem Recommendation Dietitian Recommendations/Changes Continue liberalized Regular diet as tolerated with no milk to drink or dairy/milk- containing products. Will add 240mL ensure clear TID w/ meals as tolerated. Encourage PO at meals and intake of ONS to prevent further caloric depletion. Lab / Micro Data 05/19/23 06:43 05/19/23 06:43 Labs: Laboratory Results - last 24 hr 05/19/23 06:43: WBC 8.4, RBC 4.08 L, Hgb 10.8 L, Hct 34.6 L, MCV 84.8, MCH 26.5 L, MCHC 31.2 L, RDW Std Deviation 56.5 H, RDW Coeff of Jacinto 18.4 H, Plt Count 194, MPV 9.7, Immature Gran % (Auto) 0.400, Neut % (Auto) 68.7, Lymph % (Auto) 17.3 L, [place] % (Auto) 12.4 H, Eos % (Auto) 1.0, Baso % (Auto) 0.2, Absolute Neuts (auto) 5.8, Absolute Lymphs (auto) 1.46, Nucleated RBC % 0, Sodium 130 L, Potassium 3.1 L, Chloride 94 L, Carbon Dioxide 34.0 H, Anion Gap 2 L, BUN 12, Creatinine 0.30 L, Estim Creat Clear Calc 31.46, Est GFR (MDRD) Af Amer 282, Est GFR (MDRD) Non-Af 233, BUN/Creatinine Ratio 40.5 H, Glucose 86, Calcium 8.3 L Micro: Microbiology 05/13/23 18:24 Blood Culture (Wb) - Left Wrist Blood Culture - Final No growth in 5 days. 05/13/23 18:20 Blood Culture (Wb) - Anticubital Left Blood Culture - Final No growth in 5 days. 05/14/23 04:30 Blood Culture (Wb) - Right Forearm Blood Culture - Final No growth in 5 days. 05/13/23 19:10 Sputum, Induced/Lukens Gram Stain - Final 05/13/23 19:10 Sputum, Induced/Lukens Respiratory Culture - Final Yeast, not Roro albicans 05/13/23 18:20 Urine, Catheterized Urine Culture - Final Culture exhibits no growth. 05/14/23 01:57 Urine Catheter - Hood Legionella Antigen - Final 05/14/23 01:57 Urine Catheter - Hood Streptococcus pneumoniae Antigen (M - Final 05/13/23 21:38 Mucosa - Nose Respiratory Panel (PCR) - Final 05/13/23 18:20 Nasal Secretion SARS-CoV-2 Antigen (Rapid) - Final Physical Exam Narrative General: Alert, no apparent distress HEENT: Atraumatic, normocephalic Eyes: Anicteric, normal conjunctiva, extraocular movements grossly intact Neck: Supple Respiratory: Improved work of breathing and better airflow bilaterally Cardiovascular: Regular rate GI: Soft, nontender, nondistended, no rebound, guarding, rigidity Extremities: No edema Musculoskeletal: Moving all extremities Neuro: No overt focal neurological deficits Skin: No rashes appreciated Psych: Cooperative Assessment & Plan Assessment/Plan (1) Pulmonary cachexia due to COPD: PLAN: Plan #Acute on chronic hypoxic and hypercapnic respiratory failure due to pneumonia and COPD exacerbation -Admitted 05/13, CT at that time demonstrated patchy bibasilar infiltrates suspicious for infection and stable nodules in right apex and right upper lobe with 2-year period of stability and no further follow-up recommended, ultimately required intubation after she failed to improve on BiPAP, IV steroids, IV antibiotics with amikacin and azithromycin due to multiple medication allergies listed as anaphylaxis, nebs. COVID test was negative, critical care on board. Patient ultimately extubated. -[place] to be a component of fluid overload so had been on IV diuretics which were ultimately transitioned to oral -Of note patient was enrolled in hospice until week prior to admission when she was disenrolled due to noncompliance and smoking while her home oxygen was on per report -05/17: Remains on IV steroids, pulm signed off, every 4 nebs with as needed albuterol. Patient has continued to be on 3 L, on chronic home O2 5 L, but O2 sat down trended to 92% and intermittently slightly tachypneic. Overall patient feels much better remains on azithromycin empirically, plan for 7 days. Cultures have been negative. Will de-escalate to oral Pred and continue nebs. Patient initially up 3 kg, has down trended again, continue oral Lasix -05/18: Patient with pulse ox 98% on 3 L nasal cannula which is lower than her baseline, continue nebs, continue oral Lasix. Feel patient is stable to pursue placement with hospice. Referral sent to nursing facility for intermediate level care with hospice through [facility] -05/19: Doing well from respiratory standpoint, continue current management, ultimately will benefit from prednisone taper #History of mood disturbance and anxiety -Patient on home citalopram, BuSpar, receiving lorazepam, trazodone nightly -05/18: Continue present management #Hyponatremia -Unclear etiology, chronically on citalopram so less likely that this is abruptly causing downtrend, patient has had poor p.o. intake, will encourage improved intake and monitor, if any further drop may need to reevaluate and assess further, presently asymptomatic #Normocytic anemia -Hemoglobin 10.1 on 05/17 and appears to have vacillating level at baseline, patient initially had downtrend in hemoglobin with lowest 8.8 on 05/15 but no active blood loss appreciated, overall appears stable -Iron level 37 iron sat 11.5 with ferritin of 14 and TIBC 322 -Continue iron supplementation -05/18: Has improved, continue current management #Stable right lung nodules -CTA on admission demonstrated stable nodules in right apex and right upper lobe representing a 2-year period of stability and no further follow-up recommended #Severe protein calorie malnutrition due to severe pulmonary cachexia dietitian on board. has supposedly had considerable weight loss over the past 6 months whilst being in hospice. dietitian on board -05/17: Very poor appetite, has not been ordering trace has not been receiving her Ensure, will order Ensure separately, suspect not eating and taking all of the medication is worsening her nausea -05/18: Eating slightly better today #History of PE: on eliquis #Osteoporosis: alendronate on board. DVT prophylaxis: on eliquis Disposition: PT/OT consulted to help disposition. Time spent in the patient's overall evaluation,decision-making process, review of diagnostic data, adjustment of management, discussion with other providers, nursing nursing and ancillary staff involved in patient's care documentation, 36 minutes Charges/Coding Visit Charges Inpatient E&M: 94261 Subs Hosp L2
[2023-05-19] MEDS: busPIRone 5 MG Tablet 10 MG PO ×2 (11:05→20:58)
[2023-05-19] MEDS: predniSONE 20 MG Tablet 60 MG PO (11:06)
[2023-05-19] MEDS: Famotidine 20 MG Tablet 40 MG PO (11:07)
[2023-05-19] MEDS: Aspirin 81 MG TAB.CHEW PO (11:07)
[2023-05-19] MEDS: Cyanocobalamin 500 MCG Tablet 2000 MCG PO (11:08)
[2023-05-19] MEDS: Ferrous Sulfate 325 MG Tablet PO ×2 (11:08→16:44)
[2023-05-19] MEDS: Loratadine 10 MG Tablet PO (11:08)
[2023-05-19] MEDS: Multivitamins,Ther W-Minerals Tablet 1 TABLET PO (11:09)
[2023-05-19] MEDS: APIXABAN 5 MG TABLET PO (11:10)
[2023-05-19] MEDS: Potassium Chloride Oral Tablet 20 MEQ PO (11:10)
[2023-05-19] MEDS: Potassium Chloride 10mEq/100mL 10 MEQ/100 ML IV.SOLN. 100 MEQ IV BOLUS ×2 (11:34→12:58)
[2023-05-19] MEDS: Fluticasone 0.05% 1 SPRAY NASAL.SRY NASAL ×2 (11:35→21:00)
[2023-05-19] MEDS: LORazepam 0.5 MG Tablet PO ×2 (11:35→21:00)
[2023-05-19] MEDS: Gabapentin 300 MG Capsule PO ×2 (11:35→16:44)
[2023-05-19] MEDS: Senna/Docusate Sodium 1 Tablet 2 TABLET PO (20:58)
[2023-05-19] MEDS: traZODone 50 MG Tablet PO (20:59)
[2023-05-19] MEDS: Citalopram 20 MG Tablet PO (20:59)
[2023-05-19] MEDS: Ensure Clear 120 ML Liquid PO (20:59)
[2023-05-19] MEDS: Pramipexole Di-HCl 0.25 MG Tablet PO (20:59)
[2023-05-20] VITALS (9 sets, daily range): BP systolic 98–124; BP diastolic 62–81; PULSE 82–115; RESP 16–25; TEMP 36.2–37; O2SAT 90–100; BMI 16.6
[2023-05-20 05:47] LABS: Absolute Lymphocyte Count 1.62 X10^3/uL (0.83-4.51); Absolute Neutrophil Count 7.6 X10^3/uL (2.0-7.7); Basophil# 0.02 X10^3/uL; Basophil% 0.2 % (0-1); Eosinophil# 0.12 X10^3/uL; Eosinophils% 1.1 % (0-5); Hematocrit 33.8 % (37-47); Hemoglobin 10.8 g/dL (12.0-15.0); Lymphocyte # 1.62 X10^3/ul (0.83-4.51); Lymphocyte % 15.3 % (19-41); Mean Corpuscular Hgb 26.3 pg (27.0-32.0); Mean Corpuscular Volume 82.4 fL (81-99); Mean Platelet Vol. 10.2 fl (6.2-12.0); Monocyte# 1.16 X10^3/uL; NRBC Flagged by Analyzer 0 % (0-5); Platelet Count 255 K/mm3 (150-450); RBC Distribution Width SD 53.7 fl (35.1-43.9); White Blood Count 10.6 K/mm3 (4.4-11.0)
[2023-05-20 06:29] LABS: Anion Gap 5 (5-15); BUN 13 mg/dL (7-18); BUN/Creat Ratio 30.6 RATIO (10-20); Calcium,Total 8.4 mg/dL (8.5-10.1); Chloride 95 mmol/L (98-107); Creatinine, Serum 0.42 mg/dL (0.55-1.02); EST Glomerular Filtration Rate 153 mL/min (>60); Est Glom Filt Rate - Afr Amer 186 mL/min (>60); Estimated Creatinine Clearance 31.61 ml/min; Glucose 112 mg/dL (74-106); Potassium 3.5 mmol/L (3.5-5.1); Sodium Level 135 mmol/L (136-145)
[2023-05-20] MEDS: Ipratropium/Albuterol Sulfate 3 ML AMPUL.NEB INHALATION ×3 (08:04→19:58)
[2023-05-20] MEDS: Multivitamins,Ther W-Minerals Tablet 1 TABLET PO (08:53)
[2023-05-20] MEDS: Gabapentin 300 MG Capsule PO ×2 (08:53→17:48)
[2023-05-20] MEDS: Ferrous Sulfate 325 MG Tablet PO ×2 (08:54→17:48)
[2023-05-20] MEDS: predniSONE 20 MG Tablet 60 MG PO (08:54)
[2023-05-20] MEDS: Potassium Chloride Oral Tablet 20 MEQ PO (08:54)
[2023-05-20] MEDS: LORazepam 0.5 MG Tablet PO ×2 (08:54→22:23)
[2023-05-20] MEDS: Famotidine 20 MG Tablet 40 MG PO (08:55)
[2023-05-20] MEDS: Aspirin 81 MG TAB.CHEW PO (08:55)
[2023-05-20] MEDS: busPIRone 5 MG Tablet 10 MG PO ×2 (08:55→22:24)
[2023-05-20] MEDS: Loratadine 10 MG Tablet PO (08:56)
[2023-05-20] MEDS: Furosemide 40 MG Tablet PO (08:56)
[2023-05-20] MEDS: Cyanocobalamin 500 MCG Tablet 2000 MCG PO (08:56)
[2023-05-20] MEDS: Enoxaparin 30 MG/0.3 ML Syringe SC (08:57)
[2023-05-20] MEDS: Fluticasone 0.05% 1 SPRAY NASAL.SRY NASAL ×2 (08:57→22:24)
--- NOTE | 2023-05-20 11:12 | CASEMGMT ---
Discharge Planning Patient has been accepted by [facility]. Asked for precert to be started. Diana Jennings, Discharge Planning Asst.
--- NOTE | 2023-05-20 11:42 | CPS ---
wants to spend son's lunch with him, refused treatment
--- NOTE | 2023-05-20 14:40 | PCM.PN.HOSP ---
Reason for Visit Reason for Visit: Diagnoses Anemia, unspecified (05/13/23) Unspecified severe protein-calorie malnutrition (05/13/23) Chronic obstructive pulmonary disease with (acute) exacerbation (05/13/23) Chronic obstructive pulmonary disease, unspecified (05/13/23) Acute and chronic respiratory failure with hypoxia (05/13/23) Acute and chronic respiratory failure with hypercapnia (05/13/23) Cachexia (05/13/23) Other nonspecific abnormal finding of lung field (05/13/23) Subjective Subjective Doing well overall, no acute complaints Objective Data Objective Data Vital Signs: Vital Signs Temp Pulse Resp BP Pulse Ox O2 Del Method O2 Flow Rate 98.5 F 104 H 16 124/81 H 90 Nasal Cannula 2 05/20/23 09:01 05/20/23 09:01 05/20/23 09:01 05/20/23 09:01 05/20/23 12:52 05/20/23 09:05 05/20/23 12:52 FiO2 35 05/15/23 05:00 Oxygen Flow Rate (L/min) 2 Oxygen Delivery Method Nasal Cannula Weight: 42.5 kg Body Mass Index (BMI) 16.6 Intake & Output: Intake and Output for Last 24 Hours 05/18/23 05/19/23 05/20/23 23:59 23:59 23:59 Intake Total 405 / 525 1280 / 1280 240 / 240 Output Total 1050 / 1050 Balance -645 / -525 1280 / 1280 240 / 240 Medical Nutrition Assessment Dietitian: Malnutrition Criteria Met Start: 05/14/23 11:27 Freq: Status: Active Protocol: Document 05/20/23 13:33 LO (Rec: 05/20/23 13:34 LO [id number]) Nutrition Malnutrition Evidence of Malnutrition Exists Yes Malnutrition (severe): Chronic Evidenced By Suboptimal Energy Intake ( Moderate),Weight Loss (Severe) ,Physical Changes (Moderate) Intake Problem Inadequate Oral Intake Etiology related to increased respiratory needs/intubated Signs/Symptoms as evidenced by NPO and currently no enteral nutrition support Status Resolved Problem Clinical Problem Chronic Disease or Condition Related Malnutrition Etiology Severe protein-calorie malnutrition in the context of chronic disease related to inadequate oral intake and increased energy expenditure Signs/Symptoms as evidenced by ~24% weight loss x 1-2 years, PO meeting less than 50% estimated nutrition needs, BMI 16.6, visible fat depletion and muscle wasting in the clavicle , face, orbitals, arms and legs Status Active Problem Recommendation Dietitian Recommendations/Changes Continue liberalized Regular diet as tolerated with no milk to drink or dairy/milk- containing products. RD will discontinue Ensure Clear since patient dislikes supplement. Lab / Micro Data 05/20/23 05:31 05/20/23 05:31 Labs: Laboratory Results - last 24 hr 05/20/23 05:31: WBC 10.6, RBC 4.10 L, Hgb 10.8 L, Hct 33.8 L, MCV 82.4, MCH 26.3 L, MCHC 32.0, RDW Std Deviation 53.7 H, RDW Coeff of Jacinto 18.0 H, Plt Count 255, MPV 10.2, Immature Gran % (Auto) 0.400, Neut % (Auto) 72.0 H, Lymph % (Auto) 15.3 L, [place]bs % (Auto) 11.0 H, Eos % (Auto) 1.1, Baso % (Auto) 0.2, Absolute Neuts (auto) 7.6, Absolute Lymphs (auto) 1.62, Nucleated RBC % 0, Sodium 135 L, Potassium 3.5, Chloride 95 L, Carbon Dioxide 35.0 H, Anion Gap 5, BUN 13, Creatinine 0.42 L, Estim Creat Clear Calc 31.61, Est GFR (MDRD) Af Amer 186, Est GFR (MDRD) Non-Af 153, BUN/Creatinine Ratio 30.6 H, Glucose 112 H, Calcium 8.4 L Micro: Microbiology 05/13/23 18:24 Blood Culture (Wb) - Left Wrist Blood Culture - Final No growth in 5 days. 05/13/23 18:20 Blood Culture (Wb) - Anticubital Left Blood Culture - Final No growth in 5 days. 05/14/23 04:30 Blood Culture (Wb) - Right Forearm Blood Culture - Final No growth in 5 days. 05/13/23 19:10 Sputum, Induced/Lukens Gram Stain - Final 05/13/23 19:10 Sputum, Induced/Lukens Respiratory Culture - Final Yeast, not Roro albicans 05/13/23 18:20 Urine, Catheterized Urine Culture - Final Culture exhibits no growth. 05/14/23 01:57 Urine Catheter - Hood Legionella Antigen - Final 05/14/23 01:57 Urine Catheter - Hood Streptococcus pneumoniae Antigen (M - Final 05/13/23 21:38 Mucosa - Nose Respiratory Panel (PCR) - Final 05/13/23 18:20 Nasal Secretion SARS-CoV-2 Antigen (Rapid) - Final Physical Exam Narrative General: Alert, no apparent distress HEENT: Atraumatic, normocephalic Eyes: Anicteric, normal conjunctiva, extraocular movements grossly intact Neck: Supple Respiratory: Improved work of breathing, some transmitted upper airway sounds Cardiovascular: Regular rate GI: Soft, nontender, nondistended, no rebound, guarding, rigidity Extremities: No edema Musculoskeletal: Moving all extremities Neuro: No overt focal neurological deficits Skin: No rashes appreciated Psych: Cooperative Assessment & Plan Assessment/Plan (1) Pulmonary cachexia due to COPD: PLAN: Plan #Acute on chronic hypoxic and hypercapnic respiratory failure due to pneumonia and COPD exacerbation -Admitted 05/13, CT at that time demonstrated patchy bibasilar infiltrates suspicious for infection and stable nodules in right apex and right upper lobe with 2-year period of stability and no further follow-up recommended, ultimately required intubation after she failed to improve on BiPAP, IV steroids, IV antibiotics with amikacin and azithromycin due to multiple medication allergies listed as anaphylaxis, nebs. COVID test was negative, critical care on board. Patient ultimately extubated. -[place] to be a component of fluid overload so had been on IV diuretics which were ultimately transitioned to oral -Of note patient was enrolled in hospice until week prior to admission when she was disenrolled due to noncompliance and smoking while her home oxygen was on per report -05/17: Remains on IV steroids, pulm signed off, every 4 nebs with as needed albuterol. Patient has continued to be on 3 L, on chronic home O2 5 L, but O2 sat down trended to 92% and intermittently slightly tachypneic. Overall patient feels much better remains on azithromycin empirically, plan for 7 days. Cultures have been negative. Will de-escalate to oral Pred and continue nebs. Patient initially up 3 kg, has down trended again, continue oral Lasix -05/18: Patient with pulse ox 98% on 3 L nasal cannula which is lower than her baseline, continue nebs, continue oral Lasix. Feel patient is stable to pursue placement with hospice. Referral sent to nursing facility for intermediate level care with hospice through pathway -05/19: Doing well from respiratory standpoint, continue current management, ultimately will benefit from prednisone taper -05/20: Awaiting placement #History of mood disturbance and anxiety -Patient on home citalopram, BuSpar, receiving lorazepam, trazodone nightly -05/18: Continue present management #Hyponatremia -Unclear etiology, chronically on citalopram so less likely that this is abruptly causing downtrend, patient has had poor p.o. intake, will encourage improved intake and monitor, if any further drop may need to reevaluate and assess further, presently asymptomatic -05/20: Improved #Normocytic anemia -Hemoglobin 10.1 on 05/17 and appears to have vacillating level at baseline, patient initially had downtrend in hemoglobin with lowest 8.8 on 05/15 but no active blood loss appreciated, overall appears stable -Iron level 37 iron sat 11.5 with ferritin of 14 and TIBC 322 -Continue iron supplementation -05/18: Has improved, continue current management #Stable right lung nodules -CTA on admission demonstrated stable nodules in right apex and right upper lobe representing a 2-year period of stability and no further follow-up recommended #Severe protein calorie malnutrition due to severe pulmonary cachexia dietitian on board. has supposedly had considerable weight loss over the past 6 months whilst being in hospice. dietitian on board -05/17: Very poor appetite, has not been ordering trace has not been receiving her Ensure, will order Ensure separately, suspect not eating and taking all of the medication is worsening her nausea -05/18: Eating slightly better today #History of PE: on eliquis #Osteoporosis: alendronate on board. DVT prophylaxis: on eliquis Disposition: PT/OT, placement with hospice Charges/Coding Visit Charges Inpatient E&M: [id number] [facility] Hosp L1
[2023-05-20] MEDS: traZODone 50 MG Tablet PO (22:25)
[2023-05-20] MEDS: Citalopram 20 MG Tablet PO (22:25)
[2023-05-20] MEDS: Senna/Docusate Sodium 1 Tablet 2 TABLET PO (22:26)
[2023-05-20] MEDS: Pramipexole Di-HCl 0.25 MG Tablet PO (22:26)
[2023-05-21] VITALS (10 sets, daily range): BP systolic 100–115; BP diastolic 59–73; PULSE 94–112; RESP 16–22; TEMP 36.3–37.2; O2SAT 93–96; BMI 16.3
[2023-05-21 06:18] LABS: Absolute Lymphocyte Count 1.54 X10^3/uL (0.83-4.51); Basophil# 0.01 X10^3/uL; Basophil% 0.1 % (0-1); Eosinophils% 0.7 % (0-5); Hematocrit 33.3 % (37-47); Hemoglobin 10.6 g/dL (12.0-15.0); Lymphocyte # 1.54 X10^3/ul (0.83-4.51); Lymphocyte % 10.9 % (19-41); Mean Corp Hgb Conc 31.8 g/dL (32-36); Mean Corpuscular Hgb 26.2 pg (27.0-32.0); Mean Corpuscular Volume 82.4 fL (81-99); Mean Platelet Vol. 10.1 fl (6.2-12.0); Monocyte# 1.44 X10^3/uL; Monocyte% 10.2 % (0-10); NRBC Flagged by Analyzer 0 % (0-5); Neutrophil # 11.02 X10^3/uL (2.7-7.7); Neutrophil % 77.6 % (47-70); Platelet Count 251 K/mm3 (150-450); RBC Distribution Width CV 18.1 % (11.6-14.6); RBC Distribution Width SD 53.1 fl (35.1-43.9); Red Blood Count 4.04 M/mm3 (4.2-5.4); White Blood Count 14.2 K/mm3 (4.4-11.0)
[2023-05-21 06:49] LABS: Anion Gap 4 (5-15); BUN 13 mg/dL (7-18); BUN/Creat Ratio 37.8 RATIO (10-20); Calcium,Total 8.3 mg/dL (8.5-10.1); Chloride 95 mmol/L (98-107); Creatinine, Serum 0.34 mg/dL (0.55-1.02); EST Glomerular Filtration Rate 196 mL/min (>60); Est Glom Filt Rate - Afr Amer 237 mL/min (>60); Estimated Creatinine Clearance 31.16 ml/min; Glucose 88 mg/dL (74-106); Potassium 3.5 mmol/L (3.5-5.1); Sodium Level 135 mmol/L (136-145)
[2023-05-21] MEDS: Ipratropium/Albuterol Sulfate 3 ML AMPUL.NEB INHALATION ×3 (07:23→15:20)
[2023-05-21] MEDS: Potassium Chloride Oral Tablet 20 MEQ PO (08:54)
[2023-05-21] MEDS: Ferrous Sulfate 325 MG Tablet PO (08:54)
[2023-05-21] MEDS: Aspirin 81 MG TAB.CHEW PO (08:54)
[2023-05-21] MEDS: Multivitamins,Ther W-Minerals Tablet 1 TABLET PO (08:54)
[2023-05-21] MEDS: Gabapentin 300 MG Capsule PO (08:55)
[2023-05-21] MEDS: predniSONE 20 MG Tablet 60 MG PO (08:55)
[2023-05-21] MEDS: Famotidine 20 MG Tablet 40 MG PO (08:56)
[2023-05-21] MEDS: Cyanocobalamin 500 MCG Tablet 2000 MCG PO (08:56)
[2023-05-21] MEDS: Loratadine 10 MG Tablet PO (08:56)
[2023-05-21] MEDS: LORazepam 0.5 MG Tablet PO (08:56)
[2023-05-21] MEDS: Enoxaparin 30 MG/0.3 ML Syringe SC (08:57)
[2023-05-21] MEDS: busPIRone 5 MG Tablet 10 MG PO (08:57)
[2023-05-21] MEDS: Fluticasone 0.05% 1 SPRAY NASAL.SRY NASAL (08:57)
[2023-05-21] MEDS: Furosemide 40 MG Tablet PO (08:57)
--- NOTE | 2023-05-21 13:02 | PN.HOSP_ITS ---
Reason for Visit Reason for Visit: Diagnoses Anemia, unspecified (05/13/23) Unspecified severe protein-calorie malnutrition (05/13/23) Chronic obstructive pulmonary disease with (acute) exacerbation (05/13/23) Chronic obstructive pulmonary disease, unspecified (05/13/23) Acute and chronic respiratory failure with hypoxia (05/13/23) Acute and chronic respiratory failure with hypercapnia (05/13/23) Cachexia (05/13/23) Other nonspecific abnormal finding of lung field (05/13/23) Subjective Subjective Patient feeling well with no complaints Objective Data Objective Data Vital Signs: Vital Signs Temp Pulse Resp BP Pulse Ox O2 Del Method O2 Flow Rate 98.1 F 102 H 20 H 109/68 96 Nasal Cannula 2 05/21/23 08:53 05/21/23 10:33 05/21/23 10:33 05/21/23 08:53 05/21/23 08:53 05/21/23 09:00 05/21/23 09:00 FiO2 35 05/15/23 05:00 Oxygen Flow Rate (L/min) 2 Oxygen Delivery Method Nasal Cannula Weight: 41.9 kg Body Mass Index (BMI) 16.3 Intake & Output: Intake and Output for Last 24 Hours 05/19/23 05/20/23 05/21/23 23:59 23:59 23:59 Intake Total 1280 / 1280 240 / 240 100 / 100 Balance 1280 / 1280 240 / 240 100 / 100 Medical Nutrition Assessment Dietitian: Malnutrition Criteria Met Start: 05/14/23 11:27 Freq: Status: Active Protocol: Document 05/20/23 13:33 LO (Rec: 05/20/23 13:34 LO [id number]) Nutrition Malnutrition Evidence of Malnutrition Exists Yes Malnutrition (severe): Chronic Evidenced By Suboptimal Energy Intake ( Moderate),Weight Loss (Severe) ,Physical Changes (Moderate) Intake Problem Inadequate Oral Intake Etiology related to increased respiratory needs/intubated Signs/Symptoms as evidenced by NPO and currently no enteral nutrition support Status Resolved Problem Clinical Problem Chronic Disease or Condition Related Malnutrition Etiology Severe protein-calorie malnutrition in the context of chronic disease related to inadequate oral intake and increased energy expenditure Signs/Symptoms as evidenced by ~24% weight loss x 1-2 years, PO meeting less than 50% estimated nutrition needs, BMI 16.6, visible fat depletion and muscle wasting in the clavicle , face, orbitals, arms and legs Status Active Problem Recommendation Dietitian Recommendations/Changes Continue liberalized Regular diet as tolerated with no milk to drink or dairy/milk- containing products. RD will discontinue Ensure Clear since patient dislikes supplement. Lab / Micro Data 05/21/23 06:02 05/21/23 06:02 Labs: Laboratory Results - last 24 hr 05/21/23 06:02: WBC 14.2 H, RBC 4.04 L, Hgb 10.6 L, Hct 33.3 L, MCV 82.4, MCH 26.2 L, MCHC 31.8 L, RDW Std Deviation 53.1 H, RDW Coeff of Jacinto 18.1 H, Plt Count 251, MPV 10.1, Immature Gran % (Auto) 0.500, Neut % (Auto) 77.6 H, Lymph % (Auto) 10.9 L, Frio % (Auto) 10.2 H, Eos % (Auto) 0.7, Baso % (Auto) 0.1, Absolute Neuts (auto) 11.0 H, Absolute Lymphs (auto) 1.54, Nucleated RBC % 0, Sodium 135 L, Potassium 3.5, Chloride 95 L, Carbon Dioxide 36.0 H, Anion Gap 4 L , BUN 13, Creatinine 0.34 L, Estim Creat Clear Calc 31.16, Est GFR (MDRD) Af Amer 237, Est GFR (MDRD) Non-Af 196, BUN/Creatinine Ratio 37.8 H, Glucose 88, Calcium 8.3 L Micro: Microbiology 05/13/23 18:24 Blood Culture (Wb) - Left Wrist Blood Culture - Final No growth in 5 days. 05/13/23 18:20 Blood Culture (Wb) - Anticubital Left Blood Culture - Final No growth in 5 days. 05/14/23 04:30 Blood Culture (Wb) - Right Forearm Blood Culture - Final No growth in 5 days. 05/13/23 19:10 Sputum, Induced/Lukens Gram Stain - Final 05/13/23 19:10 Sputum, Induced/Lukens Respiratory Culture - Final Yeast, not Roro albicans 05/13/23 18:20 Urine, Catheterized Urine Culture - Final Culture exhibits no growth. 05/14/23 01:57 Urine Catheter - Hood Legionella Antigen - Final 05/14/23 01:57 Urine Catheter - Hood Streptococcus pneumoniae Antigen (M - Final 05/13/23 21:38 Mucosa - Nose Respiratory Panel (PCR) - Final 05/13/23 18:20 Nasal Secretion SARS-CoV-2 Antigen (Rapid) - Final Physical Exam Narrative General: Alert, no apparent distress HEENT: Atraumatic, normocephalic Eyes: Anicteric, normal conjunctiva, extraocular movements grossly intact Neck: Supple Respiratory: Improved work of breathing, some transmitted upper airway sounds Cardiovascular: Regular rate GI: Soft, nontender, nondistended, no rebound, guarding, rigidity Extremities: No edema Musculoskeletal: Moving all extremities Neuro: No overt focal neurological deficits Skin: No rashes appreciated Psych: Cooperative Assessment & Plan Assessment/Plan (1) Pulmonary cachexia due to COPD: PLAN: Plan #Acute on chronic hypoxic and hypercapnic respiratory failure due to pneumonia and COPD exacerbation -Admitted 05/13, CT at that time demonstrated patchy bibasilar infiltrates suspicious for infection and stable nodules in right apex and right upper lobe with 2-year period of stability and no further follow-up recommended, ultimately required intubation after she failed to improve on BiPAP, IV steroids, IV antibiotics with amikacin and azithromycin due to multiple medication allergies listed as anaphylaxis, nebs. COVID test was negative, critical care on board. Patient ultimately extubated. -[place] to be a component of fluid overload so had been on IV diuretics which were ultimately transitioned to oral -Of note patient was enrolled in hospice until week prior to admission when she was disenrolled due to noncompliance and smoking while her home oxygen was on per report -05/17: Remains on IV steroids, pulm signed off, every 4 nebs with as needed albuterol. Patient has continued to be on 3 L, on chronic home O2 5 L, but O2 sat down trended to 92% and intermittently slightly tachypneic. Overall patient feels much better remains on azithromycin empirically, plan for 7 days. Cultures have been negative. Will de-escalate to oral Pred and continue nebs. Patient initially up 3 kg, has down trended again, continue oral Lasix -05/18: Patient with pulse ox 98% on 3 L nasal cannula which is lower than her baseline, continue nebs, continue oral Lasix. Feel patient is stable to pursue placement with hospice. Referral sent to nursing facility for intermediate level care with hospice through pathway -05/19: Doing well from respiratory standpoint, continue current management, ultimately will benefit from prednisone taper -05/20: Awaiting placement -05/21: Had an increase in white blood cell count to 14 however no signs or symptoms of infection and overall patient doing very well, since her symptoms #History of mood disturbance and anxiety -Patient on home citalopram, BuSpar, receiving lorazepam, trazodone nightly -05/18: Continue present management #Hyponatremia -Unclear etiology, chronically on citalopram so less likely that this is abruptly causing downtrend, patient has had poor p.o. intake, will encourage improved intake and monitor, if any further drop may need to reevaluate and assess further, presently asymptomatic -05/20: Improved #Normocytic anemia -Hemoglobin 10.1 on 05/17 and appears to have vacillating level at baseline, patient initially had downtrend in hemoglobin with lowest 8.8 on 05/15 but no active blood loss appreciated, overall appears stable -Iron level 37 iron sat 11.5 with ferritin of 14 and TIBC 322 -Continue iron supplementation -05/18: Has improved, continue current management #Stable right lung nodules -CTA on admission demonstrated stable nodules in right apex and right upper lobe representing a 2-year period of stability and no further follow-up recommended #Severe protein calorie malnutrition * due to severe pulmonary cachexia * dietitian on board. * has supposedly had considerable weight loss over the past 6 months whilst being in hospice. * dietitian on board -05/17: Very poor appetite, has not been ordering trace has not been receiving her Ensure, will order Ensure separately, suspect not eating and taking all of the medication is worsening her nausea -05/18: Eating slightly better today #History of PE: on eliquis #Osteoporosis: alendronate on board. DVT prophylaxis: on eliquis Disposition: PT/OT, placement with hospice Charges/Coding Visit Charges Inpatient E&M: [id number] [facility] Hosp L1
--- NOTE | 2023-05-21 13:28 | CASEMGMT ---
Patient was approved for [facility]. SW notified physician. Sharifa Wilburn [employer] INSTRUCTOR LUANN
--- NOTE | 2023-05-21 13:55 | PCM.TXEXTCAR ---
Diet Diet Order/Speech Therapy: 05/17/23 09:55 Diet: Regular - General Food consistency:: Soft & Bite Sized Liquid Consistency:: Regular/Thin Dietary Modifications:: No Milk to Drink Is pt able to select menu?: Yes Diet Comments: no milk/dairy-containing products Routine Orders/Code Status Suppository Type: Dulcolax 10mg Suppository Frequency: Daily PRN O2 Liters per Minute: 2 O2 Frequency: 3 w/ ambulation Code Status: DNRCC-A Therapies Physical Therapy: Eval and Treat Occupational Therapy: Eval and Treat Problem/Diagnosis (1) Pulmonary cachexia due to COPD: Status: Chronic Code(s): J44.9 - Chronic obstructive pulmonary disease, unspecified; R64 - Cachexia Plan #Acute on chronic hypoxic and hypercapnic respiratory failure due to pneumonia and COPD exacerbation #History of mood disturbance and anxiety #Hyponatremia #Normocytic anemia #Stable right lung nodules #Severe protein calorie malnutrition #History of PE: on eliquis #Osteoporosis: 78-year-old female history of chronic hypoxic respiratory failure with COPD, anxiety, OA who presented to [facility] 05[facility]13[facility]2023 with increasing shortness of breath. CT at that time demonstrated patchy bibasilar infiltrates suspicious for infection and stable nodules in right apex and right upper lobe with 2-year period of stability and no further follow-up recommended, ultimately required intubation after she failed to improve on BiPAP, IV steroids, IV antibiotics with amikacin and azithromycin due to multiple medication allergies listed as anaphylaxis, nebs. COVID test was negative, critical care on board. Patient ultimately extubated. [place] to be a component of fluid overload so had been on IV diuretics which were ultimately transitioned to oral. She was transitioned to p.o. steroids as well and was doing well on this, breathing improved significantly overall and patient deemed stable for placement with plans to go with hospice. White count increased however patient with no infectious signs or symptoms and do not feel she warrants empiric antibiotics or any further investigation unless she develops specific complaint. She will be discharged on steroid taper. Allergies/Procedures Done in Hospital Allergies bupropion HCl [From Wellbutrin] Allergy (Verified 05/13/23 17:38) Anaphylaxis only if doesnt take her brand from home cephalexin monohydrate [From Keflex] Allergy (Verified 05/13/23 17:38) Anaphylaxis levofloxacin Allergy (Verified 05/13/23 17:38) Anaphylaxis Penicillins [PCN] Allergy (Verified 05/13/23 17:38) Anaphylaxis Milk Containing Products (Dairy) [Milk Containing Products] Adverse Reaction (Verified 05/13/23 17:38) phlegm Procedures: - (Intubation and extubation) Type of Care/Length of Stay Estimated LOS: Convalescent Care Less Than 30 days Type of Care Needed: Intermediate Rehab Potential: Poor Prognosis: Poor Additional Orders/Day of Discharge Day of Discharge: 05/21/23 Dietary and Speech Recommendations Dietitian Recommendations/Changes: Continue liberalized Regular diet as tolerated with no milk to drink or dairy/milk-containing products. RD will discontinue Ensure Clear since patient dislikes supplement. Discharge Plan Admission Admit Date/Time: 05/13/23 19:28 Primary Reason for Your Visit: Shortness of breath Attending Provider: Alda Gan Primary Care Provider: Shayne Winter Chi Consulting Providers: Essence Anne; Harjinder Power; Misael Singh; Omid Chiu; Chase Gill; Yadira Hinton NP; Joanne Mock Instructions Patient Instructions: ED Fall Prevention Additional Instructions / Restrictions: DISCHARGE INSTRUCTIONS PLEASE READ *Please take this with you to your next doctors appointment* -Continue your inhalers -Continue other home medications -You will be discharged on a prednisone taper: -60 mg daily x3 days -50mg daily x3 days -40mg daily x3 days -30mg daily x3 days -20mg daily x3 days -10mg daily x3 days -Please call your primary care provider's office upon discharge to schedule a hospital follow up within 1 week. -For any concerning signs or symptoms please call 911 or proceed to the nearest emergency department Discharge Orders/Prescriptions Prescriptions: New ipratropium-albuterol 0.5 mg-3 mg(2.5 mg base)/3 mL Solution For Nebulization 3 ml inhalation Q4HWA.RT 14 Days Qty: 180 0RF prednisone 20 mg Tablet See Taper PO BREAKFAST Qty: 32 0RF Taper: Prednisone Taper 60 mg WITH BREAKFAST for 3 Days and 0 Hour 50 mg WITH BREAKFAST for 3 Days and 0 Hour 40 mg WITH BREAKFAST for 3 Days and 0 Hour 30 mg WITH BREAKFAST for 3 Days and 0 Hour 20 mg WITH BREAKFAST for 3 Days and 0 Hour 10 mg WITH BREAKFAST for 3 Days and 0 Hour Continued gabapentin 300 MG capsule 300 mg PO BIDCM Patient Comments: pinched nerves ropinirole 0.5 MG tablet 0.5 mg PO QHS Patient Comments: restless legs furosemide 40 MG tablet 40 mg PO DAILY Patient Comments: water pill famotidine 40 tablet 40 mg PO DAILY Incruse Ellipta 62.5 mcg/actuation blister with device 1 inh INHALATION DAILY [id number] Tablet 1 tab PO DAILY albuterol sulfate 1.25 mg/3 mL Solution For Nebulization 1.25 mg INHALATION Q4H citalopram 20 mg tablet 20 mg PO QHS potassium chloride 20 mEq tablet,ER particles/crystals 20 meq PO DAILY cyanocobalamin (vitamin B-12) [Vitamin B-12] 2,000 mcg Tablet Extended Release 2,000 mcg PO DAILY loratadine 10 mg Tablet 10 mg PO DAILY fluticasone furoate-vilanterol [Breo Ellipta] 200-25 mcg/dose blister with device 1 inh INHALATION BID aspirin 81 mg Tablet,Delayed Release (Dr/Ec) 81 mg PO DAILY benzonatate 100 mg capsule 100 mg PO BID PRN (Reason: cough) Patient Comments: TAKE 1 CAPSULE EVERY 12 HOURS NEEDED FOR COUGH ferrous sulfate [FeroSul] 325 mg (65 mg iron) tablet 325 mg PO BID lorazepam [Ativan] 0.5 mg tablet 0.5 mg PO BID buspirone 10 mg tablet 10 mg PO BID fluticasone propionate 50 mcg/actuation spray,suspension 1 spray INTRANASAL BID haloperidol 1 mg tablet 1 mg PO Q4H PRN (Reason: nausea and vomiting) morphine concentrate 100 mg/5 mL (20 mg/mL) solution 5 mg PO Q6H PRN (Reason: pain or dyspnea) promethazine 25 mg tablet 25 mg PO Q6H PRN (Reason: nausea and vomiting) trazodone 50 mg tablet 50 mg PO QHS sennosides-docusate sodium [2-in-1 Laxative] 8.6-50 mg tablet 2 tab-cap PO QHS Changed lorazepam 0.5 mg tablet 0.5 mg PO BID 3 Days Qty: 6 0RF Referrals / Follow Up: Shayne Winter Chi, MD [Primary Care Provider] - Within 1 Week Disposition Disposition (needs filled in before D/C Order can be placed): NonSkilled NH/Intermed Care
--- NOTE | 2023-05-21 14:12 | DS.PCM_ITS ---
Providers Date of Admission: 05/13/23 Date of Discharge: 05/21/23 Primary Care Physician: Dr. 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 Code(s): J44.9 - Chronic obstructive pulmonary disease, unspecified; R64 - Cachexia Plan #Acute on chronic hypoxic and hypercapnic respiratory failure due to pneumonia and COPD exacerbation #History of mood disturbance and anxiety #Hyponatremia #Normocytic anemia #Stable right lung nodules #Severe protein calorie malnutrition #History of PE: on eliquis #Osteoporosis: Medications at Discharge Home Medications furosemide 40 mg tablet 40 mg PO DAILY diuretic 09/19/16 gabapentin 300 mg capsule 300 mg PO BIDCM neuropathy 09/19/16 ropinirole 0.5 mg tablet 0.5 mg PO QHS restless legs 09/19/16 famotidine 40 mg tablet 40 mg PO DAILY GERD 10/24/18 albuterol sulfate 1.25 mg/3 mL solution for nebulization 1.25 mg inhalation Q4H sob 04/04/21 citalopram 20 mg tablet 20 mg PO QHS mood 04/04/21 cyanocobalamin (vitamin B-12) 2,000 mcg tablet,extended release (Vitamin B-12 ER) 2,000 mcg PO DAILY supplement 04/04/21 fluticasone furoate 200 mcg-vilanterol 25 mcg/dose inhalation powder (Breo Ellipta) 1 inh inhalation BID copd 04/04/21 loratadine 10 mg tablet 10 mg PO DAILY allergies 04/04/21 qkjfkudszdfj-clxjuqip-vdzhlh tablet 1 tab PO DAILY supplement 04/04/21 potassium chloride 20 mEq tablet,extended release(part/cryst) 20 meq PO DAILY supplement 04/04/21 umeclidinium 62.5 mcg/actuation blister powder for inhalation (Incruse Ellipta) 1 inh inhalation DAILY copd 04/04/21 aspirin 81 mg tablet,delayed release 81 mg PO DAILY heart health 04/20/21 benzonatate 100 mg capsule 100 mg PO BID PRN cough 05/13/23 buspirone 10 mg tablet 10 mg PO BID anxiety 05/15/23 ferrous sulfate 325 mg (65 mg iron) tablet (FeroSul) 325 mg PO BID Iron Supplement 05/15/23 fluticasone propionate 50 mcg/actuation nasal spray,suspension 1 spray intranasal BID Allergies 05/15/23 haloperidol 1 mg tablet 1 mg PO Q4H PRN nausea and vomiting 05/15/23 lorazepam 0.5 mg tablet (Ativan) 0.5 mg PO BID Anxiety 05/15/23 morphine concentrate 100 mg/5 mL (20 mg/mL) oral solution 5 mg PO Q6H PRN pain or dyspnea 05/15/23 promethazine 25 mg tablet 25 mg PO Q6H PRN nausea and vomiting 05/15/23 sennosides 8.6 mg-docusate sodium 50 mg tablet (2-in-1 Laxative) 2 tab-cap PO QHS stool softener 05/15/23 trazodone 50 mg tablet 50 mg PO QHS sleep 05/15/23 ipratropium 0.5 mg-albuterol 3 mg (2.5 mg base)/3 mL nebulization soln 3 ml inhalation Q4HWA.RT 14 days #180 mL 05/21/23 lorazepam 0.5 mg tablet 0.5 mg PO BID 3 days #6 tabs 05/21/23 prednisone 20 mg tablet See Taper PO BREAKFAST #32 tabs 05/21/23 Hospital Course Procedures Intubation Summary of Care Provided Minutes Spent on Discharge: 35 Hospital Course: 78-year-old female history of chronic hypoxic respiratory failure with COPD, anxiety, OA who presented to [facility] 05/13/2023 with increasing shortness of breath. CT at that time demonstrated patchy bibasilar infiltrates suspicious for infection and stable nodules in right apex and right upper lobe with 2-year period of stability and no further follow-up recommended, ultimately required intubation after she failed to improve on BiPAP, IV steroids, IV antibiotics with amikacin and azithromycin due to multiple medication allergies listed as anaphylaxis, nebs. COVID test was negative, critical care on board. Patient ultimately extubated. [place] to be a component of fluid overload so had been on IV diuretics which were ultimately transitioned to oral. She was transitioned to p.o. steroids as well and was doing well on this, breathing improved significantly overall and patient deemed stable for placement with plans to go with hospice. White count increased however patient with no infectious signs or symptoms and do not feel she warrants empiric antibiotics or any further investigation unless she develops specific complaint. She will be discharged on steroid taper. Physical Exam Narrative General: Alert, no apparent distress HEENT: Atraumatic, normocephalic Eyes: Anicteric, normal conjunctiva, extraocular movements grossly intact Neck: Supple Respiratory: Improved work of breathing, some transmitted upper airway sounds Cardiovascular: Regular rate GI: Soft, nontender, nondistended, no rebound, guarding, rigidity Extremities: No edema Musculoskeletal: Moving all extremities Neuro: No overt focal neurological deficits Skin: No rashes appreciated Psych: Cooperative Medical Records Data Medical Nutrition Assessment Dietitian: Malnutrition Criteria Met Start: 05/14/23 11:27 Freq: Status: Active Protocol: Document 05/20/23 13:33 LO (Rec: 05/20/23 13:34 LO [id number]) Nutrition Malnutrition Evidence of Malnutrition Exists Yes Malnutrition (severe): Chronic Evidenced By Suboptimal Energy Intake ( Moderate),Weight Loss (Severe) ,Physical Changes (Moderate) Intake Problem Inadequate Oral Intake Etiology related to increased respiratory needs/intubated Signs/Symptoms as evidenced by NPO and currently no enteral nutrition support Status Resolved Problem Clinical Problem Chronic Disease or Condition Related Malnutrition Etiology Severe protein-calorie malnutrition in the context of chronic disease related to inadequate oral intake and increased energy expenditure Signs/Symptoms as evidenced by ~24% weight loss x 1-2 years, PO meeting less than 50% estimated nutrition needs, BMI 16.6, visible fat depletion and muscle wasting in the clavicle , face, orbitals, arms and legs Status Active Problem Recommendation Dietitian Recommendations/Changes Continue liberalized Regular diet as tolerated with no milk to drink or dairy/milk- containing products. RD will discontinue Ensure Clear since patient dislikes supplement. Weight / BMI Weight Weight: 41.9 kg Body Mass Index (BMI) 16.3 ABG / Lab / Microbiology Data 05/21/23 06:02 05/21/23 06:02 Laboratory: Laboratory Results - last 24 hr 05/21/23 06:02: WBC 14.2 H, RBC 4.04 L, Hgb 10.6 L, Hct 33.3 L, MCV 82.4, MCH 26.2 L, MCHC 31.8 L, RDW Std Deviation 53.1 H, RDW Coeff of Jacinto 18.1 H, Plt Count 251, MPV 10.1, Immature Gran % (Auto) 0.500, Neut % (Auto) 77.6 H, Lymph % (Auto) 10.9 L, [place] % (Auto) 10.2 H, Eos % (Auto) 0.7, Baso % (Auto) 0.1, Absolute Neuts (auto) 11.0 H, Absolute Lymphs (auto) 1.54, Nucleated RBC % 0, Sodium 135 L, Potassium 3.5, Chloride 95 L, Carbon Dioxide 36.0 H, Anion Gap 4 L , BUN 13, Creatinine 0.34 L, Estim Creat Clear Calc 31.16, Est GFR (MDRD) Af Amer 237, Est GFR (MDRD) Non-Af 196, BUN/Creatinine Ratio 37.8 H, Glucose 88, Calcium 8.3 L Microbiology: Microbiology 05/13/23 18:24 Blood Culture (Wb) - Left Wrist Blood Culture - Final No growth in 5 days. 05/13/23 18:20 Blood Culture (Wb) - Anticubital Left Blood Culture - Final No growth in 5 days. 05/14/23 04:30 Blood Culture (Wb) - Right Forearm Blood Culture - Final No growth in 5 days. 05/13/23 19:10 Sputum, Induced/[place] Gram Stain - Final 05/13/23 19:10 Sputum, Induced/[place]ens Respiratory Culture - Final Yeast, not Roro albicans 05/13/23 18:20 Urine, Catheterized Urine Culture - Final Culture exhibits no growth. 05/14/23 01:57 Urine Catheter - Hood Legionella Antigen - Final 05/14/23 01:57 Urine Catheter - Hood Streptococcus pneumoniae Antigen (M - Final 05/13/23 21:38 Mucosa - Nose Respiratory Panel (PCR) - Final 05/13/23 18:20 Nasal Secretion SARS-CoV-2 Antigen (Rapid) - Final D/C Instructions Discharge Diet: No restrictions Discharge Activity: - (Activity as tolerated) Meaningful Use Info Meaningful Use Diagnoses (Choose all that apply): None applicable Discharge Plan Admission Admit Date/Time: 05/13/23 19:28 Primary Reason for Your Visit: Shortness of breath Attending Provider: Alda Gan Primary Care Provider: Shayne Winter Chi Consulting Providers: Essence Anne; Harjinder Power; Misael Singh; Omid Chiu; Chase Gill; Yadira Hinton NP; Joanne Mock Instructions Patient Instructions: ED Fall Prevention Additional Instructions / Restrictions: DISCHARGE INSTRUCTIONS PLEASE READ *Please take this with you to your next doctors appointment* -Continue your inhalers -Continue other home medications -You will be discharged on a prednisone taper: -60 mg daily x3 days -50mg daily x3 days -40mg daily x3 days -30mg daily x3 days -20mg daily x3 days -10mg daily x3 days -Please call your primary care provider's office upon discharge to schedule a hospital follow up within 1 week. -For any concerning signs or symptoms please call 911 or proceed to the nearest emergency department Discharge Orders/Prescriptions Prescriptions: New ipratropium-albuterol 0.5 mg-3 mg(2.5 mg base)/3 mL Solution For Nebulization 3 ml inhalation Q4HWA.RT 14 Days Qty: 180 0RF prednisone 20 mg Tablet See Taper PO BREAKFAST Qty: 32 0RF Taper: Prednisone Taper 60 mg WITH BREAKFAST for 3 Days and 0 Hour 50 mg WITH BREAKFAST for 3 Days and 0 Hour 40 mg WITH BREAKFAST for 3 Days and 0 Hour 30 mg WITH BREAKFAST for 3 Days and 0 Hour 20 mg WITH BREAKFAST for 3 Days and 0 Hour 10 mg WITH BREAKFAST for 3 Days and 0 Hour Continued gabapentin 300 MG capsule 300 mg PO BIDCM Patient Comments: pinched nerves ropinirole 0.5 MG tablet 0.5 mg PO QHS Patient Comments: restless legs furosemide 40 MG tablet 40 mg PO DAILY Patient Comments: water pill famotidine 40 tablet 40 mg PO DAILY Incruse Ellipta 62.5 mcg/actuation blister with device 1 inh INHALATION DAILY bgfufftilchd-gtogsyes-ougelz Tablet 1 tab PO DAILY albuterol sulfate 1.25 mg/3 mL Solution For Nebulization 1.25 mg INHALATION Q4H citalopram 20 mg tablet 20 mg PO QHS potassium chloride 20 mEq tablet,ER particles/crystals 20 meq PO DAILY cyanocobalamin (vitamin B-12) [Vitamin B-12] 2,000 mcg Tablet Extended Release 2,000 mcg PO DAILY loratadine 10 mg Tablet 10 mg PO DAILY fluticasone furoate-vilanterol [Breo Ellipta] 200-25 mcg/dose blister with device 1 inh INHALATION BID aspirin 81 mg Tablet,Delayed Release (Dr/Ec) 81 mg PO DAILY benzonatate 100 mg capsule 100 mg PO BID PRN (Reason: cough) Patient Comments: TAKE 1 CAPSULE EVERY 12 HOURS NEEDED FOR COUGH ferrous sulfate [FeroSul] 325 mg (65 mg iron) tablet 325 mg PO BID lorazepam [Ativan] 0.5 mg tablet 0.5 mg PO BID buspirone 10 mg tablet 10 mg PO BID fluticasone propionate 50 mcg/actuation spray,suspension 1 spray INTRANASAL BID haloperidol 1 mg tablet 1 mg PO Q4H PRN (Reason: nausea and vomiting) morphine concentrate 100 mg/5 mL (20 mg/mL) solution 5 mg PO Q6H PRN (Reason: pain or dyspnea) promethazine 25 mg tablet 25 mg PO Q6H PRN (Reason: nausea and vomiting) trazodone 50 mg tablet 50 mg PO QHS sennosides-docusate sodium [2-in-1 Laxative] 8.6-50 mg tablet 2 tab-cap PO QHS Changed lorazepam 0.5 mg tablet 0.5 mg PO BID 3 Days Qty: 6 0RF Referrals / Follow Up: Shayne Winter Chi, MD [Primary Care Provider] - Within 1 Week Disposition Disposition (needs filled in before D/C Order can be placed): NonSkilled NH/Intermed Care Charges/Coding Visit Charges Inpatient E&M: 17900 Disch Hosp >30min
--- NOTE | 2023-05-21 14:58 | CASEMGMT ---
Discharge Planning Discharge orders, signed med list, and pickup time sent to [facility] by wheelchair at 3:30p. A cot may pick patient up but she will not be charged for it. Patient, her son, nursing and SW updated. [facility] also notified. Diana Jennings, Discharge Planning Asst.
--- NOTE | 2023-05-21 15:18 | CASEMGMT ---
ZAIDA received a phone call from Andreia with [facility]. ZAIDA let Andre[facility] know [facility] ZAIDA completed a 7000 in [employer] system. Plan: d/c to [facility] under intermediate level of care on a convalescent stay. Physicians transported patient. Sharifa KONG
--- NOTE | 2023-05-21 16:15 | NURSING ---
This RN attempted to call report to [facility].
--- NOTE | 2023-05-21 16:42 | NURSING ---
[facility]
== END 2023-05-21 16:55 | disposition intermediate care facility (04) | DRG 208 ==
LOC: ED 19:33 → ICU 19:49 → PCU 05-18 15:08
PROVIDERS: Student in an Organized Health Care Education/Training Program; Admitting Provider Internal Medicine; Emergency Provider Emergency Medicine; PCP Family Medicine Geriatric Medicine; Visit Provider Internal Medicine
DX: J96.21 Acute and chronic respiratory failure with hypoxia (principal); E43 Unspecified severe protein-calorie malnutrition; J18.9 Pneumonia, unspecified organism; R64 Cachexia; J44.1 Chronic obstructive pulmonary disease with (acute) exacerbation; J44.0 Chronic obstructive pulmonary disease with (acute) lower respiratory infection; E87.1 Hypo-osmolality and hyponatremia; Z68.1 Body mass index [BMI] 19.9 or less, adult; J96.22 Acute and chronic respiratory failure with hypercapnia; D64.9 Anemia, unspecified; E78.00 Pure hypercholesterolemia, unspecified; G62.9 Polyneuropathy, unspecified; K21.9 Gastro-esophageal reflux disease without esophagitis; F41.9 Anxiety disorder, unspecified; M62.519 Muscle wasting and atrophy, not elsewhere classified, unspecified shoulder; Z66 Do not resuscitate; Z79.83 Long term (current) use of bisphosphonates; Z80.0 Family history of malignant neoplasm of digestive organs; Z79.01 Long term (current) use of anticoagulants; Z79.51 Long term (current) use of inhaled steroids; M81.0 Age-related osteoporosis without current pathological fracture; Z79.82 Long term (current) use of aspirin; Z51.5 Encounter for palliative care; R91.1 Solitary pulmonary nodule; Z86.711 Personal history of pulmonary embolism
CPT/HCPCS: 31500; 31720; 36415; 36600; 51702; 71045; 71275; 80048; 80053; 81001; 82550; 82728; 82803; 83540; 83550; 83605; 83735; 83880; 84100; 84443; 84478; 84484; 85025; 87040; 87070; 87086; 87205; 87449; 87633; 87641; 87811; 92526; 92610; 93005; 94002; 94003; 94640; 94660; 94668; 94760; 94762; 97110; 97116; 97150; 97162; 97166; 97530; 97535; 97802; 97803; 99285; J7030; J7050; Q9967; A4216; J0278; J2405

== ENCOUNTER 2023-06-18 10:44 | Emergency (ER) | payer MEDICARE, MEDICAID, SELFPAY ==
[2023-06-18 10:45] VITALS: BP 131/79; PULSE 104; RESP 21; TEMP 36.8; O2SAT 98; BMI 15.9
[2023-06-18 10:51] VITALS: O2SAT 99
--- NOTE | 2023-06-18 11:02 | ED.VIS.DYS ---
HPI History of Present Illness Chief Complaint: Shortness of Breath Narrative Narrative: 78-year-old female past medical history of COPD states that she was recently at [facility] when her symptoms started approximately 4 weeks ago. She complains of a bandlike sensation around her chest and abdomen. She states she feels short of breath and has a cough. She also feels tightness in her abdomen but denies any nausea or vomiting, she has loose stool because she takes a lot of Senokot. No fevers or chills. She was at home alone and called squad because of the bandlike sensation in her chest and abdomen. She denies any exacerbating or alleviating factors but states this has been ongoing for at least a month. She was recently discharged from the rehabilitation facility a week and a half ago. While she states she lives at home alone, she does have an aide who comes in for few hours at a time. She denies any dysuria or hematuria, no other symptoms. PFSH PFSH Medical History Anxiety Bleeding disorder cataracts COPD (chronic obstructive pulmonary disease) Gout High cholesterol Hx of gallstones Migraines Neuropathy On home O2 Osteoarthritis Osteoporosis Sleep apnea Smoker Home Medications furosemide 40 mg tablet 40 mg PO DAILY diuretic 09/19/16 [History Last Taken 04/19/21] gabapentin 300 mg capsule 300 mg PO BIDCM neuropathy 09/19/16 [History Last Taken 04/19/21] ropinirole 0.5 mg tablet 0.5 mg PO QHS restless legs 09/19/16 [History Last Taken 04/19/21] famotidine 40 mg tablet 40 mg PO DAILY GERD 10/24/18 [History Last Taken 04/19/21] albuterol sulfate 1.25 mg/3 mL solution for nebulization 1.25 mg inhalation Q4H sob 04/04/21 [History Last Taken 04/03/21] citalopram 20 mg tablet 20 mg PO QHS mood 04/04/21 [History Last Taken 04/19/21] cyanocobalamin (vitamin B-12) 2,000 mcg tablet,extended release (Vitamin B-12 ER) 2,000 mcg PO DAILY supplement 04/04/21 [History Last Taken 04/04/21] fluticasone furoate 200 mcg-vilanterol 25 mcg/dose inhalation powder (Breo Ellipta) 1 inh inhalation BID copd 04/04/21 [History Last Taken 04/19/21] loratadine 10 mg tablet 10 mg PO DAILY allergies 04/04/21 [History Last Taken 04/04/21] knluahnpnftm-zpgdnpxa-plmzdk tablet 1 tab PO DAILY supplement 04/04/21 [History Last Taken 04/04/21] potassium chloride 20 mEq tablet,extended release(part/cryst) 20 meq PO DAILY supplement 04/04/21 [History Last Taken 04/19/21] umeclidinium 62.5 mcg/actuation blister powder for inhalation (Incruse Ellipta) 1 inh inhalation DAILY copd 04/04/21 [History Last Taken 04/19/21] aspirin 81 mg tablet,delayed release 81 mg PO DAILY heart health 04/20/21 [History Last Taken Unknown] benzonatate 100 mg capsule 100 mg PO BID PRN cough 05/13/23 [History Last Taken Unknown] buspirone 10 mg tablet 10 mg PO BID anxiety 05/15/23 [History Last Taken Unknown] ferrous sulfate 325 mg (65 mg iron) tablet (FeroSul) 325 mg PO BID Iron Supplement 05/15/23 [History Last Taken Unknown] fluticasone propionate 50 mcg/actuation nasal spray,suspension 1 spray intranasal BID Allergies 05/15/23 [History Last Taken Unknown] haloperidol 1 mg tablet 1 mg PO Q4H PRN nausea and vomiting 05/15/23 [History Last Taken Unknown] lorazepam 0.5 mg tablet (Ativan) 0.5 mg PO BID Anxiety 05/15/23 [History Last Taken Unknown] morphine concentrate 100 mg/5 mL (20 mg/mL) oral solution 5 mg PO Q6H PRN pain or dyspnea 05/15/23 [History Last Taken Unknown] promethazine 25 mg tablet 25 mg PO Q6H PRN nausea and vomiting 05/15/23 [History Last Taken Unknown] sennosides 8.6 mg-docusate sodium 50 mg tablet (2-in-1 Laxative) 2 tab-cap PO QHS stool softener 05/15/23 [History Last Taken Unknown] trazodone 50 mg tablet 50 mg PO QHS sleep 05/15/23 [History Last Taken Unknown] ipratropium 0.5 mg-albuterol 3 mg (2.5 mg base)/3 mL nebulization soln 3 ml inhalation Q4HWA.RT 14 days #180 mL 05/21/23 [Rx Last Taken Unknown] lorazepam 0.5 mg tablet 0.5 mg PO BID 3 days #6 tabs 05/21/23 [Rx Last Taken Unknown] prednisone 20 mg tablet See Taper PO BREAKFAST #32 tabs 05/21/23 [Rx Last Taken Unknown] Allergy/AdvReac Type Severity Reaction Status Date / Time bupropion HCl Allergy Anaphylaxis Verified 05/13/23 17:38 [From Wellbutrin] cephalexin monohydrate Allergy Anaphylaxis Verified 05/13/23 17:38 [From Keflex] levofloxacin Allergy Anaphylaxis Verified 05/13/23 17:38 Penicillins [PCN] Allergy Anaphylaxis Verified 05/13/23 17:38 Milk Containing Products AdvReac phlegm Verified 05/13/23 17:38 (Dairy) [Milk Containing Products] Family History Father Colon cancer Heart disease Surgical History History of appendectomy History of cholecystectomy History of hysterectomy History of incisional hernia repair Status post hip surgery Social History Smoking Status: Current some day smoker tobacco type: cigarettes alcohol intake: never substance use type: does not use ROS ROS ED ROS Narrative Constitutional: No fever, no chills. HEENT: No sore throat. No neck pain. No loss of vision. No rhinorrhea. Cardiovascular: Positive chest tightness chest pain. No palpitations. No pedal edema. Respiratory: Positive cough, positive shortness of breath. Abdominal: Bandlike sensation/abdominal pain. No nausea. No vomiting. Positive loose stool. Genitourinary: No dysuria. No hematuria. Musculoskeletal: No myalgias. No arthralgias. Neurologic: No headaches. No dizziness. No lightheadedness. Skin: No rash. No change in color. Psychiatric: No depression. No anxiety. EXAM Physical Exam Narrative Exam Narrative: Afebrile. Vital signs noted. Positive cachexia. HEENT: Normocephalic. Atraumatic. PERRL, EOMI. Neck soft and supple. No point tenderness or step off. Cardiovascular: Regular rate and rhythm. No murmurs, rubs, or gallops appreciated. Respiratory: No tachypnea. Decreased breath sounds bilateral bases with occasional expiratory wheezing. Moving a fair amount of air. Gastrointestinal: Abdomen soft, nontender, with normoactive bowel sounds. No rebound or guarding. Neurological: Awake. Alert. Nonfocal, nonlateralizing. Skin: No rash. Normal color. No pallor. Musculoskeletal: No pedal edema. Full range of motion extremities. Const Vital Signs: 06/18/23 10:45 06/18/23 10:51 06/18/23 11:18 Temperature 98.2 F Temperature Source Oral Pulse Rate 104 H 89 Respiratory Rate 21 H 20 H Respiratory Effort Short of Breath Respiratory Depth Normal Respiratory Pattern Normal Normal Blood Pressure 131/79 H Blood Pressure Mean 96 Pulse Ox 98 Oxygen Delivery Method Nasal Cannula Nasal Cannula Oxygen Flow Rate (L/min) 4 2 06/18/23 11:48 06/18/23 14:13 Temperature Temperature Source Pulse Rate 78 Respiratory Rate 16 Respiratory Effort Respiratory Depth Respiratory Pattern Blood Pressure 108/54 L Blood Pressure Mean Pulse Ox 95 Oxygen Delivery Method Nasal Cannula Oxygen Flow Rate (L/min) 2 MDM MDM MDM Narrative Medical decision making narrative: Comprehensive work-up was pursued. In the differential diagnosis for shortness of breath is COPD exacerbation versus pneumonia. I have low suspicion for pulmonary embolism as the history does not support that diagnosis. Regarding her bandlike sensation around her chest and abdomen, she could be having ACS so I do feel EKG and troponin is indicated. CT imaging will be obtained of the abdomen regarding her stooling because she states she has colitis but does not know what type of colitis she may have had. Chest x-ray in 1 view was obtained and interpreted by myself independently as no evidence of a consolidation or pneumonia. I reviewed the radiology report which confirms my independent interpretation. I also reviewed her laboratory work from today and she has a normal white count of 8.0, hemoglobin normal at 12.3, hematocrit 40.6, platelet count normal at 278. BMP was reviewed and she has a normal sodium of 141, potassium normal at 3.8, chloride slightly low at 97 which I think is nonspecific, BUN normal at 17 with creatinine low at 0.48. Glucose is appropriately elevated at 98 with an anion gap of 2. High-sensitivity troponin is normal at 7. EKG obtained and interpreted by myself independently as normal sinus rhythm at 98 bpm without ectopy or acute ST changes. No STEMI. I reviewed the CT report of the abdomen pelvis with IV contrast for her abdominal pain and bandlike sensation, it shows no acute process but there is a distended bladder and a 4 cm right adnexal cyst. I do not feel this is the cause of her pain. In order to obtain a urinalysis, she was placed on a pure wick, and she had large return of urine and states her abdominal pain feels vastly improved. I do feel that she may have had a small amount of urinary retention. Her urinalysis was sent and evaluated, and reviewed and there is no evidence of infection. I do not feel antibiotics are indicated. At this point in time, I do not feel she requires admission or observation. She feels improved and is comfortable with discharge. Her son is at the bedside who agrees with discharge. Return instructions to the emergency department were reviewed. She will follow-up with her primary care provider. Disposition is discharged home in stable condition. History & Record Review Discussion w/independent historian: Patient and Family Additional record(s) reviewed:: Prior ED visit and Prior labs Lab Data Attestation: I reviewed the patient's lab results. Labs: Laboratory Results - last 24 hr 06/18/23 06/18/23 11:20 12:45 WBC 8.0 RBC 4.39 Hgb 12.3 Hct 40.6 MCV 92.5 MCH 28.0 MCHC 30.3 L RDW Std Deviation 68.7 H RDW Coeff of Jacinto 20.3 H Plt Count 278 MPV 10.0 Immature Gran % (Auto) 0.500 Neut % (Auto) 83.3 H Lymph % (Auto) 11.4 L [place] % (Auto) 3.1 Eos % (Auto) 1.3 Baso % (Auto) 0.4 Absolute Neuts (auto) 6.7 Absolute Lymphs (auto) 0.91 Nucleated RBC % 0 Anisocytosis 1+ Sodium 141 Potassium 3.8 Chloride 97 L Carbon Dioxide 42.0 H Anion Gap 2 L BUN 17 Creatinine 0.48 L Estim Creat Clear Calc 30.36 Est GFR (MDRD) Af Amer 162 Est GFR (MDRD) Non-Af 134 BUN/Creatinine Ratio 35.6 H Glucose 98 Calcium 9.3 Troponin I High Sens 7 Urine Color Yellow Urine Clarity Sl. Cloudy Urine pH 7.0 Ur Specific [place] 1.010 Urine Protein Negative Urine Glucose (UA) Normal Urine Ketones Negative Urine Occult Blood Negative Urine Nitrite Negative Urine Bilirubin Negative Urine Urobilinogen Normal Ur Leukocyte Esterase 25 H Urine RBC 0 SEEN Urine WBC 0-5 SEEN Ur Squamous Epith Cells 0-5 SEEN Urine Bacteria 0 SEEN Urine Mucus 0 SEEN Radiography Diagnostic Testing: Clinical Impression(s) from Imaging Studies Chest X-Ray 06/18/23 11:50 IMPRESSION: Hyperinflation. Stable increased interstitial markings at the lung bases suggestive of scarring. Electronically Signed: Mao Rodgers MD at 12:14 EDT , Abdomen/Pelvis CT 06/18/23 12:02 IMPRESSION: Distended urinary bladder. Small pericardial effusion. 4 cm x 4.4 cm cyst in the right adnexa. Electronically Signed: Mao Rodgers MD at 12:22 EDT , Discharge Plan Triage Chief Complaint: Shortness of Breath ED Provider: Nick Mata Dx/Rx/DC Orders Clinical Impression: Urinary retention, Abdominal pain, Chest pain Instructions: ED Abdominal Pain Unkn Cause Fem, ED Chest Pain, Uncertain Cause, ED Urinary Retention, Female, ED Symptoms With Uncertain Cause Prescriptions: No Action gabapentin 300 MG capsule 300 mg PO BIDCM Patient Comments: pinched nerves ropinirole 0.5 MG tablet 0.5 mg PO QHS Patient Comments: restless legs furosemide 40 MG tablet 40 mg PO DAILY Patient Comments: water pill famotidine 40 tablet 40 mg PO DAILY Incruse Ellipta 62.5 mcg/actuation blister with device 1 inh INHALATION DAILY [id number] Tablet 1 tab PO DAILY albuterol sulfate 1.25 mg/3 mL Solution For Nebulization 1.25 mg INHALATION Q4H citalopram 20 mg tablet 20 mg PO QHS potassium chloride 20 mEq tablet,ER particles/crystals 20 meq PO DAILY cyanocobalamin (vitamin B-12) [Vitamin B-12] 2,000 mcg Tablet Extended Release 2,000 mcg PO DAILY loratadine 10 mg Tablet 10 mg PO DAILY fluticasone furoate-vilanterol [Breo Ellipta] 200-25 mcg/dose blister with device 1 inh INHALATION BID aspirin 81 mg Tablet,Delayed Release (Dr/Ec) 81 mg PO DAILY benzonatate 100 mg capsule 100 mg PO BID PRN (Reason: cough) Patient Comments: TAKE 1 CAPSULE EVERY 12 HOURS NEEDED FOR COUGH ferrous sulfate [FeroSul] 325 mg (65 mg iron) tablet 325 mg PO BID lorazepam [Ativan] 0.5 mg tablet 0.5 mg PO BID buspirone 10 mg tablet 10 mg PO BID fluticasone propionate 50 mcg/actuation spray,suspension 1 spray INTRANASAL BID haloperidol 1 mg tablet 1 mg PO Q4H PRN (Reason: nausea and vomiting) morphine concentrate 100 mg/5 mL (20 mg/mL) solution 5 mg PO Q6H PRN (Reason: pain or dyspnea) promethazine 25 mg tablet 25 mg PO Q6H PRN (Reason: nausea and vomiting) trazodone 50 mg tablet 50 mg PO QHS sennosides-docusate sodium [2-in-1 Laxative] 8.6-50 mg tablet 2 tab-cap PO QHS ipratropium-albuterol 0.5 mg-3 mg(2.5 mg base)/3 mL Solution For Nebulization 3 ml inhalation Q4HWA.RT 14 Days Qty: 180 0RF prednisone 20 mg Tablet See Taper PO BREAKFAST Qty: 32 0RF Taper: Prednisone Taper 60 mg WITH BREAKFAST for 3 Days and 0 Hour 50 mg WITH BREAKFAST for 3 Days and 0 Hour 40 mg WITH BREAKFAST for 3 Days and 0 Hour 30 mg WITH BREAKFAST for 3 Days and 0 Hour 20 mg WITH BREAKFAST for 3 Days and 0 Hour 10 mg WITH BREAKFAST for 3 Days and 0 Hour lorazepam 0.5 mg tablet 0.5 mg PO BID 3 Days Qty: 6 0RF Primary Care Provider: Shayne Winter Chi Referrals: Shayne Winter Chi, MD [Primary Care Provider] - 3-5 Days Disposition Disposition: Home, Self Care
[2023-06-18 11:18] VITALS: PULSE 89; RESP 20
[2023-06-18] MEDS: Ipratropium/Albuterol Sulfate 3 ML AMPUL.NEB INHALATION (11:18)
[2023-06-18 11:29] LABS: Absolute Lymphocyte Count 0.91 X10^3/uL (0.83-4.51); Absolute Neutrophil Count 6.7 X10^3/uL (2.0-7.7); Basophil# 0.03 X10^3/uL; Basophil% 0.4 % (0-1); Eosinophils% 1.3 % (0-5); Hematocrit 40.6 % (37-47); Hemoglobin 12.3 g/dL (12.0-15.0); Lymphocyte # 0.91 X10^3/ul (0.83-4.51); Lymphocyte % 11.4 % (19-41); Mean Corp Hgb Conc 30.3 g/dL (32-36); Mean Corpuscular Volume 92.5 fL (81-99); Monocyte# 0.25 X10^3/uL; Monocyte% 3.1 % (0-10); NRBC Flagged by Analyzer 0 % (0-5); Neutrophil # 6.67 X10^3/uL (2.7-7.7); Neutrophil % 83.3 % (47-70); POSITIVE MORPHOLOGY YES; Platelet Count 278 K/mm3 (150-450); RBC Distribution Width CV 20.3 % (11.6-14.6); RBC Distribution Width SD 68.7 fl (35.1-43.9); Red Blood Count 4.39 M/mm3 (4.2-5.4)
[2023-06-18 11:31] LABS: Differential Indicated SCAN CRITERIA MET
[2023-06-18 11:47] LABS: Anion Gap 2 (5-15); BUN 17 mg/dL (7-18); BUN/Creat Ratio 35.6 RATIO (10-20); Calcium,Total 9.3 mg/dL (8.5-10.1); Chloride 97 mmol/L (98-107); Creatinine, Serum 0.48 mg/dL (0.55-1.02); EST Glomerular Filtration Rate 134 mL/min (>60); Est Glom Filt Rate - Afr Amer 162 mL/min (>60); Estimated Creatinine Clearance 30.36 ml/min; Glucose 98 mg/dL (74-106); Potassium 3.8 mmol/L (3.5-5.1); Sodium Level 141 mmol/L (136-145); Troponin-I HS 7 pg/mL (3.0-54.0)
[2023-06-18 11:48] VITALS: O2SAT 95
--- NOTE | 2023-06-18 11:50 | RAD_ITS ---
STUDY: X-RAY CHEST REASON FOR EXAM: Female, 78 years old. 4 week history of chest pressure and abdominal pain. TECHNIQUE: Single AP portable view of the chest. COMPARISON: Comparison is made with prior study May 13, 2023. FINDINGS: Hyperinflation. Stable mild increased interstitial markings at the lung bases suggestive of scarring. There is no demonstrated pleural abnormality. Normal size heart. Normal mediastinum and jovanny. Normal visualized pulmonary arteries. There is atherosclerotic calcification of the aortic arch with tortuosity. There are degenerative changes of the visualized thoracic spine. Normal visualized ribs, clavicles, and shoulders. There is no demonstrated abnormality of the visualized soft tissue structures of the upper abdomen. RAD/Chest 1 View (Portable) IMPRESSION: Hyperinflation. Stable increased interstitial markings at the lung bases suggestive of scarring. Electronically Signed: Mao Rodgers MD at 12:14 EDT ,
[2023-06-18 11:59] LABS: Anisocytosis 1+
--- NOTE | 2023-06-18 12:02 | CT_ITS ---
STUDY: CT ABDOMEN AND PELVIS WITH CONTRAST REASON FOR EXAM: Female, 78 years old. Abdominal Pain RADIATION DOSAGE (If Supplied By Facility): CTDIvol = ( 7.31 ) mGy, DLP = ( 216.81 ) mGycm TECHNIQUE: Transaxial images were obtained from the dome of the diaphragm to the symphysis pubis without oral contrast. IV 75mL [id number]-[id number] was administered. Sagittal and coronal images were reconstructed. Individualized dose optimization techniques were used for this CT. COMPARISON: Comparison is made with prior study dated January 03, 2021. FINDINGS: Stable mild increased markings at the lung bases suggestive of scarring. Coronary artery calcification. Small pericardial effusion. Normal liver. The patient is status post cholecystectomy. Normal spleen. Normal pancreas. Normal bilateral adrenal glands. Normal right kidney. Normal left kidney. Intrarenal calcification of the arterial branches in the left kidney. This is unchanged. Normal visualized stomach. Normal small intestine. There are scattered colonic diverticula consistent with diverticulosis. The appendix is visualized and appears normal. There is diffuse atherosclerotic calcification of the abdominal aorta and its major visceral branches, without a demonstrated aneurysm. Normal inferior vena cava. Normal retroperitoneum. Distended urinary bladder. There is a 4.0 cm x 4.4 cm cyst in the right adnexa. The previously seen right supraumbilical hernia is not seen at this time. There are diffuse degenerative changes of the visualized lumbar spine. CT/Abdomen/Pelvis W IV Cont ONLY IMPRESSION: Distended urinary bladder. Small pericardial effusion. 4 cm x 4.4 cm cyst in the right adnexa. Electronically Signed: Mao Rodgers MD at 12:22 EDT ,
[2023-06-18 12:55] LABS: Bacteria 0 SEEN /hpf (None Seen); Mucous, Urine 0 SEEN /hpf (<or=2+); Red Blood Cells-Urine 0 SEEN /hpf (0-5)
[2023-06-18 13:00] LABS: Color, Urine Yellow (Yellow); Glucose, Dipstick Normal (Normal); Ketone-Dipstick Negative (Negative); Leukocyte Esterase-Dipstick 25 /ul (Negative); Nitrite-Dipstick Negative (Negative); Occult Blood-Urine Negative /ul (Negative); Protein-Dipstick Negative (Negative); Urine Bilirubin Dipstick Negative (Negative); Urine Clarity Sl. Cloudy (Clear); Urine Urobilinogen Normal (Normal)
[2023-06-18 13:10] LABS: Squamous Epithelial Cells - UA 0-5 SEEN /hpf (5-10); White Blood Cells 0-5 SEEN /hpf (0-5)
[2023-06-18 14:13] VITALS: BP 108/54; PULSE 78; RESP 16
== END 2023-06-18 16:03 | disposition home or self-care (01) ==
PROVIDERS: Emergency Provider Emergency Medicine; PCP Family Medicine Geriatric Medicine; Visit Provider Emergency Medicine
DX: R33.9 Retention of urine, unspecified (principal); J44.9 Chronic obstructive pulmonary disease, unspecified; R10.9 Unspecified abdominal pain; R07.9 Chest pain, unspecified; E78.00 Pure hypercholesterolemia, unspecified; F41.9 Anxiety disorder, unspecified; M10.9 Gout, unspecified; G62.9 Polyneuropathy, unspecified; Z99.81 Dependence on supplemental oxygen; F17.210 Nicotine dependence, cigarettes, uncomplicated; M19.90 Unspecified osteoarthritis, unspecified site; M81.0 Age-related osteoporosis without current pathological fracture; G47.30 Sleep apnea, unspecified; Z79.52 Long term (current) use of systemic steroids; Z79.899 Other long term (current) drug therapy
CPT/HCPCS: 71045; 74177; 80048; 81001; 84484; 85025; 93005; 94640; 99285; Q9967; A4216

== ENCOUNTER → 2023-07-24 | Outpatient (CLI) | payer MEDICARE, MEDICAID, SELFPAY ==
[2023-07-24 12:07] LABS: Absolute Neutrophil Count 3.1 X10^3/uL (2.0-7.7); Basophil# 0.04 X10^3/uL; Basophil% 0.7 % (0-1); Eosinophils% 6.7 % (0-5); Hematocrit 38.9 % (37-47); Hemoglobin 11.9 g/dL (12.0-15.0); Lymphocyte % 31.8 % (19-41); Mean Corp Hgb Conc 30.6 g/dL (32-36); Mean Corpuscular Hgb 28.7 pg (27.0-32.0); Mean Corpuscular Volume 93.7 fL (81-99); Mean Platelet Vol. 10.3 fl (6.2-12.0); Monocyte# 0.49 X10^3/uL; Monocyte% 8.2 % (0-10); NRBC Flagged by Analyzer 0 % (0-5); Neutrophil # 3.11 X10^3/uL (2.7-7.7); Neutrophil % 52.1 % (47-70); POSITIVE MORPHOLOGY YES; Platelet Count 298 K/mm3 (150-450); RBC Distribution Width CV 18.7 % (11.6-14.6); RBC Distribution Width SD 65.1 fl (35.1-43.9); Red Blood Count 4.15 M/mm3 (4.2-5.4)
[2023-07-24 12:12] LABS: Differential Indicated SCAN CRITERIA MET
[2023-07-24 12:31] LABS: Hemoglobin A1c 5.1 % (3.8-5.6)
[2023-07-24 12:34] LABS: ALB/GLOB Ratio 1.4 RATIO (0.9-2.4); AST(SGOT) 15 U/L (15-37); Alanine Aminotransfer ALT/SGPT 22 U/L (13-56); Albumin, Serum 4.2 g/dL (3.2-5.0); Alkaline Phosphatase 46 U/L (45-117); Anion Gap 4 (5-15); BUN 17 mg/dL (7-18); BUN/Creat Ratio 28.8 RATIO (10-20); Chloride 100 mmol/L (98-107); Creatinine, Serum 0.59 mg/dL (0.55-1.02); EST Glomerular Filtration Rate 105 mL/min (>60); Est Glom Filt Rate - Afr Amer 127 mL/min (>60); Ferritin 17 ng/mL (8-252); Globulin 3.1 g/dL (2.2-4.2); Glucose 85 mg/dL (74-106); Potassium 3.6 mmol/L (3.5-5.1); Protein, Total 7.3 g/dL (6.4-8.2); Sodium Level 142 mmol/L (136-145); T3 Uptake 33 % (30-39); T4 Total, Thyroxin 9.4 ug/dL (4.8-13.9); T7 / Free Thyroxin Index 3.1 (1.4-4.5); Thyroid Stim Hormone (TSH) 0.76 uIU/mL (0.358-3.74)
[2023-07-24 13:07] LABS: Anisocytosis 2+; Differential Comment SCANNED; Macrocytosis 1+; Microcytosis 1+
== END | disposition home or self-care (01) ==
PROVIDERS: PCP Family Medicine Geriatric Medicine
DX: J96.22 Acute and chronic respiratory failure with hypercapnia (principal); G62.9 Polyneuropathy, unspecified
CPT/HCPCS: 80053; 82728; 83036; 84436; 84443; 84479; 85025

== ENCOUNTER 2023-08-06 19:07 | Inpatient (IN) | payer MEDICARE, MEDICAID, SELFPAY ==
[2023-08-06] VITALS (9 sets, daily range): BP systolic 117–130; BP diastolic 60–75; PULSE 60–121; RESP 24–26; TEMP 36.2–36.6; O2SAT 90–100; BMI 16.9; BMI 15.6
--- NOTE | 2023-08-06 19:16 | EKG12_ITS ---
Test Reason : DYSRHYTHMIA Blood Pressure : / mmHG Vent. Rate : 110 BPM Atrial Rate : 110 BPM P-R Int : 118 ms QRS Dur : 074 ms QT Int : 332 ms P-R-T Axes : 080 058 076 degrees QTc Int : 449 ms Sinus tachycardia Right atrial enlargement Pulmonary disease pattern Abnormal ECG Confirmed by YANNICK RAMÍREZ, EMERALD ([id number]), editor in chief ELMIRA SOLIZ ([id number]) on 08/14/2023 10:41:21 AM Referred By: LOBITO Confirmed By:EMERALD LANIER MD
--- NOTE | 2023-08-06 19:18 | EX.ED.CRITCA ---
HPI History of Present Illness Chief Complaint: Shortness of Breath Detail of Chief Complaint: Shortness of breath, cough, decreased level of consciousness Informant: patient Onset/Context/Timing Onset: Today Context: Sudden Onset Timing: Continuous Quality: Somnolence, respiratory distress Location: Respiratory Current Severity: Severe Maximum Severity: Severe Worsened by: Suspect hypercapnia Relieved by: Nothing Associated Symptoms Associated Symptoms: abdominal pain, chest pain, chills, cough, fever, vomiting, diarrhea, palpitations and suicidal thoughts Narrative Narrative: Patient is a 78-year-old woman who was admitted in April for acute on chronic respiratory failure with hypoxia and hypercapnia. This was due to exacerbation of COPD. She presents because of shortness of breath with slight cough. Patient closes her eyes and nods off during the history. Suspect patient has hypercapnia based on prior history. She denies fever or chills. She does endorse weight loss. 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 She is on chronic oxygen. She continues to smoke. She denies chest discomfort. She denies back pain. She denies abdominal pain. She denies nausea or vomiting. She denies urologic symptoms. She denies flank pain. Prior similar symptoms: Yes (Per review of old records. Patient was on prednisone the last 90 days.) Recent Illness/Hospitalization: Yes (April for respiratory failure) PFSH PFSH Medical History Anxiety Bleeding disorder cataracts COPD (chronic obstructive pulmonary disease) Gout High cholesterol Hx of gallstones Migraines Neuropathy On home O2 Osteoarthritis Osteoporosis Sleep apnea Smoker Home Medications furosemide 40 mg tablet 40 mg PO DAILY diuretic 09/19/16 [History Last Taken 04/19/21] gabapentin 300 mg capsule 300 mg PO BIDCM neuropathy 09/19/16 [History Last Taken 04/19/21] ropinirole 0.5 mg tablet 0.5 mg PO QHS restless legs 09/19/16 [History Last Taken 04/19/21] famotidine 40 mg tablet 40 mg PO DAILY GERD 10/24/18 [History Last Taken 04/19/21] albuterol sulfate 1.25 mg/3 mL solution for nebulization 1.25 mg inhalation Q4H sob 04/04/21 [History Last Taken 04/03/21] citalopram 20 mg tablet 20 mg PO QHS mood 04/04/21 [History Last Taken 04/19/21] cyanocobalamin (vitamin B-12) 2,000 mcg tablet,extended release (Vitamin B-12 ER) 2,000 mcg PO DAILY supplement 04/04/21 [History Last Taken 04/04/21] fluticasone furoate 200 mcg-vilanterol 25 mcg/dose inhalation powder (Breo Ellipta) 1 inh inhalation BID copd 04/04/21 [History Last Taken 04/19/21] loratadine 10 mg tablet 10 mg PO DAILY allergies 04/04/21 [History Last Taken 04/04/21] laxfffohqzss-gvteipma-bjussn tablet 1 tab PO DAILY supplement 04/04/21 [History Last Taken 04/04/21] potassium chloride 20 mEq tablet,extended release(part/cryst) 20 meq PO DAILY supplement 04/04/21 [History Last Taken 04/19/21] umeclidinium 62.5 mcg/actuation blister powder for inhalation (Incruse Ellipta) 1 inh inhalation DAILY copd 04/04/21 [History Last Taken 04/19/21] aspirin 81 mg tablet,delayed release 81 mg PO DAILY heart health 04/20/21 [History Last Taken Unknown] benzonatate 100 mg capsule 100 mg PO BID PRN cough 05/13/23 [History Last Taken Unknown] buspirone 10 mg tablet 10 mg PO BID anxiety 05/15/23 [History Last Taken Unknown] ferrous sulfate 325 mg (65 mg iron) tablet (FeroSul) 325 mg PO BID Iron Supplement 05/15/23 [History Last Taken Unknown] fluticasone propionate 50 mcg/actuation nasal spray,suspension 1 spray intranasal BID Allergies 05/15/23 [History Last Taken Unknown] haloperidol 1 mg tablet 1 mg PO Q4H PRN nausea and vomiting 05/15/23 [History Last Taken Unknown] lorazepam 0.5 mg tablet (Ativan) 0.5 mg PO BID Anxiety 05/15/23 [History Last Taken Unknown] morphine concentrate 100 mg/5 mL (20 mg/mL) oral solution 5 mg PO Q6H PRN pain or dyspnea 05/15/23 [History Last Taken Unknown] promethazine 25 mg tablet 25 mg PO Q6H PRN nausea and vomiting 05/15/23 [History Last Taken Unknown] sennosides 8.6 mg-docusate sodium 50 mg tablet (2-in-1 Laxative) 2 tab-cap PO QHS stool softener 05/15/23 [History Last Taken Unknown] trazodone 50 mg tablet 50 mg PO QHS sleep 05/15/23 [History Last Taken Unknown] ipratropium 0.5 mg-albuterol 3 mg (2.5 mg base)/3 mL nebulization soln 3 ml inhalation Q4HWA.RT 14 days #180 mL 05/21/23 [Rx Last Taken Unknown] lorazepam 0.5 mg tablet 0.5 mg PO BID 3 days #6 tabs 05/21/23 [Rx Last Taken Unknown] prednisone 20 mg tablet See Taper PO BREAKFAST #32 tabs 05/21/23 [Rx Last Taken Unknown] Allergy/AdvReac Type Severity Reaction Status Date / Time bupropion HCl Allergy Anaphylaxis Verified 05/13/23 17:38 [From Wellbutrin] cephalexin monohydrate Allergy Anaphylaxis Verified 05/13/23 17:38 [From Keflex] levofloxacin Allergy Anaphylaxis Verified 05/13/23 17:38 Penicillins [PCN] Allergy Anaphylaxis Verified 05/13/23 17:38 Milk Containing Products AdvReac phlegm Verified 05/13/23 17:38 (Dairy) [Milk Containing Products] Family History Father Colon cancer Heart disease Surgical History History of appendectomy History of cholecystectomy History of hysterectomy History of incisional hernia repair Status post hip surgery Social History Smoking Status: Current some day smoker tobacco type: cigarettes alcohol intake: never substance use type: does not use ROS ROS ED Constitutional Constitutional ED: Denies chills, fever(s), subjective or sweats Eyes Eyes: Denies blurry vision or change in vision ENT ENT ED: Denies ear pain, rhinorrhea or sore throat Cardiovascular Cardiovascular: Denies chest pain, orthopnea, palpitations, paroxysmal nocturnal dyspnea or racing heartbeat Respiratory/Chest Respiratory/Chest: Reports cough and dyspnea on exertion; Denies orthopnea, paroxysmal nocturnal dyspnea or sputum Gastrointestinal Gastrointestinal: Denies abdominal pain, nausea or vomiting Genitourinary Genitourinary ED: Denies dysuria, hematuria or urinary frequency Musculoskeletal Musculoskeletal: Denies arthralgias or myalgias Integumentary Denies rash Neurologic Neurologic: Reports weakness; Denies headache(s) EXAM Physical Exam Const Vital Signs: 08/06/23 19:13 08/06/23 19:14 08/06/23 19:32 Temperature 97.2 F L Temperature Source Temporal Pulse Rate 113 H Respiratory Rate 26 H Respiratory Effort Short of Breath Labored Respiratory Depth Shallow Respiratory Pattern Tachypnea Blood Pressure 129/75 H Blood Pressure Mean 93 Pulse Ox 95 Oxygen Delivery Method Nasal Cannula Nasal Cannula Nasal Cannula Oxygen Flow Rate (L/min) 6 4 3 08/06/23 19:28 Temperature Temperature Source Pulse Rate 121 H Respiratory Rate 26 H Respiratory Effort Respiratory Depth Respiratory Pattern Tachypnea Blood Pressure Blood Pressure Mean Pulse Ox Oxygen Delivery Method Oxygen Flow Rate (L/min) Positive well developed and cachectic; Negative for contractures Constitutional Narrative: Patient is tachycardic and tachypneic. She is somnolent. She does awaken to verbal stimuli. She does answer questions appropriately. She is oriented. She is using accessory muscles and there is slight retractions intercostal. General Appearance ED: well developed and cachectic; Negative for contractures, NAD or pallor Nutritional Appearance: cachectic HEENT normocephalic and atraumatic; Negative for cyanosis of lips/distal nose Eyes PERRL and EOMs intact bilaterally General Eye ED: Negative for pale conjunctiva or scleral icterus Neck full ROM, no lymphadenopathy, supple and no JVD Chest Wall Chest Narrative: Intercostal retractions noted. There is wasting of her chest wall muscles. Resp Resp Narrative: There is use of accessory muscles, intercostal retractions with increased expiratory phase with wheezing noted throughout. She has inspiratory rales. Cardio regular rhythm, S1 normal heart sound, S2 normal heart sound and no murmurs Rate: tachycardic GI non-tender, non-distended and no masses Auscultation: hypoactive bowel sounds Palpation: soft Back/Spine no CVA tenderness Thoracic Spine / Upper Back: Negative for thoracic spinal tenderness Lumbar Spine / Lower Back: Negative for lumbar spinal tenderness Neuro No oriented x3 and CN's II-XII intact bilaterally Neuro Narrative: Patient knows her name. She knows he is at the hospital. She knows the month. Sensorium / Orientation: Negative for alert Psych Mood & Affect: depressed Skin General Skin Exam: Negative for jaundice or pallor Lesions: no lesions Rashes: no rashes MDM MDM MDM Narrative Medical decision making narrative: Patient is in respiratory distress. Her vital signs are abnormal. Suspect patient has acute on chronic respiratory failure with hypercapnia and hypoxia. Her oxygen was decreased from 5 to 6 L by nasal cannula to 2-3. Goal is pulse ox of 90%. ABG was obtained to assess acid-base status and specifically CO2. CBC to assess white count differential as well as H&H. Electrolyte panel was obtained to assess for any or end organ dysfunction. Lactate was obtained. Lactate may be elevated due to her respiratory stress and use of inhaler. Since she was recently treated with steroid she was administered 60 mg of Solu-Medrol. She only weighs 43 kg. EKG was obtained to rule out acute ischemic changes. History & Record Review Additional record(s) reviewed:: Prior inpatient record (The discharge summary authored by Alda Gan was perused.), Prior outpatient record, Prior ED visit and Prior labs Lab Data Attestation: I reviewed the patient's lab results. Lab results narrative: White count is slightly elevated with shift. This could represent infection versus stress. Basic metabolic panel reveals an elevated CO2 of 41. BUN and creatinine are 21 and 0.3 respectively with a BUN to creatinine ratio of 69:1. Labs: Laboratory Results - last 24 hr 08/06/23 19:29 WBC 12.2 H RBC 4.30 Hgb 12.5 Hct 40.8 MCV 94.9 MCH 29.1 MCHC 30.6 L RDW Std Deviation 55.0 H RDW Coeff of Jacinto 15.9 H Plt Count 178 MPV 10.3 Immature Gran % (Auto) 0.200 Neut % (Auto) 86.0 H Lymph % (Auto) 5.8 L Luce % (Auto) 7.8 Eos % (Auto) 0.0 Baso % (Auto) 0.2 Absolute Neuts (auto) 10.5 H Absolute Lymphs (auto) 0.71 L Nucleated RBC % 0 Sodium 138 Potassium 4.1 Chloride 89 L Carbon Dioxide 41.0 H Anion Gap 8 BUN 21 H Creatinine 0.30 L Estim Creat Clear Calc 32.35 Est GFR (MDRD) Af Amer 274 Est GFR (MDRD) Non-Af 227 BUN/Creatinine Ratio 69.3 H Glucose 103 Lactic Acid 1.3 Calcium 9.2 ABG Data ABG results: ABG 08/06/23 19:42 Specimen Type ART Sample Site L Radial pH 7.33 L Bicarbonate Actual 47.4 H Total CO2 > 50 Base Excess 21 H O2 Saturation 93 L O2 % 3.0 ABG pCO2 90.4 H* ABG pO2 77 Joon Test Positive O2 Delivery Device Cannula Vent Mode Not entered Crit Call To/Read Back Yes Blood Gas Notified Whom Green Blood Gas Notified Time 19:43:47 Radiography Chest X-Ray - ED: 1 View and Read by ED Physician (Patient has new interstitial infiltrate left lower lobe peripherally and increased interstitial markings right lower lobe compared to June 18. In light of this will obtain blood cultures and start on antibiotics.) Diagnostic Testing: Clinical Impression(s) from Imaging Studies Chest X-Ray 08/06/23 19:50 IMPRESSION: 1. Marketed emphysematous changes. 2. Subtle increased reticular markings, especially peripherally may represent interstitial lung disease and/or infection. Electronically Signed: Thanh Langston, DO at 20:11 EST , EKG Initial EKG: Attestation: I personally reviewed and interpreted this EKG as follows: Interpretation: Sinus Tachycardia (Sinus tachycardia rate of 110. NV interval is 118 ms. Cures duration 74 ms. QT duration 332 ms. [place] is normal. There is evidence of cor pulmonale with atrial enlargement. There is no acute ischemic changes noted.) Management Discussion w/another healthcare provider: Hospitalist (Patient discussed with Dr. Deyanira Anne. Since patient is DNR no intubation invasive or noninvasive she will be admitted to PCU.) Treatment and Re-Evaluation Narrative: Patient refused BiPAP. CODE STATUS was addressed. Patient wishes no CPR, no intubation invasive or noninvasive ventilation. Medical management is allowed. DNR Comfort Care arrest document was completed by me. Time to speak with the patient and assure she has capacity took 15 minutes. Because of patient's significant allergies to penicillin, cephalosporin and levofloxacin and recent admission within 90 days she was treated with meropenem for her interstitial infiltrates left lower lobe and right lower lobe. Critical Care Time Critical Care Time: Yes Critical care time (excluding procedures): 30-74 minutes (33), Including time spent: (History, physical, documentation, review of prior records and laboratory results, independent interpretation of x-ray and laboratory results), Discussing w/Patient &/or Family/Account Support Rep (Discussion with patient regarding CODE STATUS/DNR.), Discussing w/Consultants and Arranging Admission or Transfer Discharge Plan Dx/Rx/DC Orders Clinical Impression: Acute bronchospasm, Acute on chronic respiratory failure with hypoxia and hypercapnia, COPD (chronic obstructive pulmonary disease), Acute prerenal azotemia, History of venous thromboembolism, Pneumonia of both lower lobes, DNR (do not resuscitate) discussion Disposition Disposition: [facility] Capacity Capacity Assessment Tool Can the patient make a choice & communicate that choice?: Yes Can the patient understand benefits, risks and alternatives?: Yes Can the patient make a logical, rational choice?: Yes Is the choice the patient makes consistent w/ their values?: Yes Is there an impending, emergent risk to the patient?: No Does the patient have an Advance Directive?: No i.e. HCPOA: No i.e. close relative (spouse, child, parent, sibling)?: Unable to Determine
[2023-08-06] MEDS: Albuterol 2.5 MG/3 ML VIAL.NEB. INHALATION ×4 (19:28→20:20)
[2023-08-06] MEDS: Ipratropium/Albuterol Sulfate 3 ML AMPUL.NEB INHALATION (19:28)
[2023-08-06 19:34] LABS: Absolute Lymphocyte Count 0.71 X10^3/uL (0.83-4.51); Absolute Neutrophil Count 10.5 X10^3/uL (2.0-7.7); Basophil# 0.03 X10^3/uL; Basophil% 0.2 % (0-1); Hematocrit 40.8 % (37-47); Hemoglobin 12.5 g/dL (12.0-15.0); Lymphocyte # 0.71 X10^3/ul (0.83-4.51); Lymphocyte % 5.8 % (19-41); Mean Corp Hgb Conc 30.6 g/dL (32-36); Mean Corpuscular Hgb 29.1 pg (27.0-32.0); Mean Corpuscular Volume 94.9 fL (81-99); Mean Platelet Vol. 10.3 fl (6.2-12.0); Monocyte# 0.96 X10^3/uL; Monocyte% 7.8 % (0-10); NRBC Flagged by Analyzer 0 % (0-5); Platelet Count 178 K/mm3 (150-450); RBC Distribution Width CV 15.9 % (11.6-14.6); White Blood Count 12.2 K/mm3 (4.4-11.0)
[2023-08-06 19:46] LABS: Allen Test Positive; Base Excess 21 mmol/L (-2 to +2); Bicarbonate 47.4 mmol/L (22-26); Blood Gas Specimen Type ART; Mode Not entered; O2 Delivery Device Cannula; PO2 77 mmHG (75-100); SITE L Radial; SO2 93 % (95-99); Total Carbon Dioxide > 50 mmol/L; pCO2 90.4 mmHg (35-45); pH 7.33 (7.35-7.45)
[2023-08-06 19:48] LABS: Anion Gap 8 (5-15); BUN 21 mg/dL (7-18); BUN/Creat Ratio 69.3 RATIO (10-20); Calcium,Total 9.2 mg/dL (8.5-10.1); Chloride 89 mmol/L (98-107); EST Glomerular Filtration Rate 227 mL/min (>60); Est Glom Filt Rate - Afr Amer 274 mL/min (>60); Estimated Creatinine Clearance 32.35 ml/min; Glucose 103 mg/dL (74-106); Potassium 4.1 mmol/L (3.5-5.1); Sodium Level 138 mmol/L (136-145)
[2023-08-06] MEDS: MethylPREDNISolone 125 MG/2 ML Vial 60 MG IV (19:49)
--- NOTE | 2023-08-06 19:50 | RAD_ITS ---
INDICATION: Respiratory failure, wheezing cough EXAMINATION/TECHNIQUE: X-RAY - XR Chest 1 View COMPARISON: CT chest pulmonary angiogram May 13, 2023 chest x-ray June 18, 2023 FINDINGS: LINES/DEVICES: None. Overlying heart monitoring wires and supplementary nasal cannula oxygen tubing is present. LUNGS: Lung volumes are abnormally increased with air trapping consistent with emphysema. There is some subtle increased reticular markings, especially in the lung bases and periphery. No definite consolidation. No pleural effusion. No pneumothorax or nodule. MEDIASTINUM AND CARDIOVASCULAR STRUCTURES: Normal size and contour of the cardiomediastinal silhouette. No evidence of pulmonary vascular congestion. BONES AND SOFT TISSUES: No fracture or focal osseous lesion. RAD/Chest 1 View (Portable) IMPRESSION: 1. Marketed emphysematous changes. 2. Subtle increased reticular markings, especially peripherally may represent interstitial lung disease and/or infection. Electronically Signed: Thanh Langston DO at 20:11 EST ,
[2023-08-06 20:05] LABS: Lactic Acid 1.3 mmol/L (0.4-1.9)
--- NOTE | 2023-08-06 20:08 | CPS ---
x3 Albuterol given to pt. in ER as well
--- NOTE | 2023-08-06 20:18 | PCM.HP.STD ---
[facility] - General General Date of Admission: 08/06/23 Date of Service: 08/06/23 Chief Complaint: Shortness of breath HPI Narrative LISETTE HERNANDEZ, is a 78 F who presented to the emergency department at [facility] on 08/06/2023 complaining of shortness of breath. She reports that it started about 2 to 3 days ago and has gotten more severe. She had a significant problem breathing today so she decided to present to the emergency department. She had associated chills but no documented fever, some mild nausea which appears to be chronic, cough that has been productive of a change in her baseline sputum and increasing oxygen requirements. She wears 3 to 3-1/2 L at home but had to increase her oxygen to 6 L to maintain oxygen saturations. She indicates that she is up-to-date on her vaccines. She still smokes. She had been enrolled in hospice previously. This was prior to her admission at the end of April however they disenrolled her due to what her said smoking on oxygen. She states that this is not the case. She educated on admission that she is interested in hospice but does not [facility] to [facility] with [facility]. She does not want to be on noninvasive ventilation due to severe claustrophobia and would like to be DNR with no intubation. It was documented on presentation that she was hypoxic and requiring 6 L rather than her baseline 3 however a value was not noted anywhere in the documentation. At the time of my evaluation she was on 3 L and satting 90%. She was afebrile but did have tachycardia and tachypnea with significantly increased work of breathing. Her CBC showed a mild leukocytosis with a white count of 12.2 and a significant left shift with an 86.0% neutrophilia. An ABG was obtained and she had a pH of 7.33 with a PO2 of 93% on 3 L. Her PCO2 was markedly elevated at 90.4. I suspect her baseline is probably between 65 and 75. Her chemistry panel is overall unremarkable other than a chronically elevated serum bicarb which was 41 at the time of presentation. Her lactic acid was 1.3. Chest x-ray is consistent with significant hyperinflation and marked emphysematous changes along with subtle increased reticular markings especially in the periphery. In the emergency department she was given steroids, antibiotics and nebulizers and request for admission was made given her increased work of breathing and worsening hypercapnia. [facility] [place] Medical History Anxiety Bleeding disorder cataracts COPD (chronic obstructive pulmonary disease) Gout High cholesterol Hx of gallstones Migraines Neuropathy On home O2 Osteoarthritis Osteoporosis Sleep apnea Smoker Home Medications furosemide 40 mg tablet 40 mg PO DAILY diuretic 09/19/16 [History Last Taken 04/19/21] gabapentin 300 mg capsule 300 mg PO BIDCM neuropathy 09/19/16 [History Last Taken 04/19/21] ropinirole 0.5 mg tablet 0.5 mg PO QHS restless legs 09/19/16 [History Last Taken 04/19/21] famotidine 40 mg tablet 40 mg PO DAILY GERD 10/24/18 [History Last Taken 04/19/21] albuterol sulfate 1.25 mg/3 mL solution for nebulization 1.25 mg inhalation Q4H sob 04/04/21 [History Last Taken 04/03/21] citalopram 20 mg tablet 20 mg PO QHS mood 04/04/21 [History Last Taken 04/19/21] cyanocobalamin (vitamin B-12) 2,000 mcg tablet,extended release (Vitamin B-12 ER) 2,000 mcg PO DAILY supplement 04/04/21 [History Last Taken 04/04/21] fluticasone furoate 200 mcg-vilanterol 25 mcg/dose inhalation powder (Breo Ellipta) 1 inh inhalation BID copd 04/04/21 [History Last Taken 04/19/21] loratadine 10 mg tablet 10 mg PO DAILY allergies 04/04/21 [History Last Taken 04/04/21] ngwlvnocehwv-pmnawzhv-vbvabb tablet 1 tab PO DAILY supplement 04/04/21 [History Last Taken 04/04/21] potassium chloride 20 mEq tablet,extended release(part/cryst) 20 meq PO DAILY supplement 04/04/21 [History Last Taken 04/19/21] umeclidinium 62.5 mcg/actuation blister powder for inhalation (Incruse Ellipta) 1 inh inhalation DAILY copd 04/04/21 [History Last Taken 04/19/21] aspirin 81 mg tablet,delayed release 81 mg PO DAILY heart health 04/20/21 [History Last Taken Unknown] benzonatate 100 mg capsule 100 mg PO BID PRN cough 05/13/23 [History Last Taken Unknown] buspirone 10 mg tablet 10 mg PO BID anxiety 05/15/23 [History Last Taken Unknown] ferrous sulfate 325 mg (65 mg iron) tablet (FeroSul) 325 mg PO BID Iron Supplement 05/15/23 [History Last Taken Unknown] fluticasone propionate 50 mcg/actuation nasal spray,suspension 1 spray intranasal BID Allergies 05/15/23 [History Last Taken Unknown] haloperidol 1 mg tablet 1 mg PO Q4H PRN nausea and vomiting 05/15/23 [History Last Taken Unknown] lorazepam 0.5 mg tablet (Ativan) 0.5 mg PO BID Anxiety 05/15/23 [History Last Taken Unknown] morphine concentrate 100 mg/5 mL (20 mg/mL) oral solution 5 mg PO Q6H PRN pain or dyspnea 05/15/23 [History Last Taken Unknown] promethazine 25 mg tablet 25 mg PO Q6H PRN nausea and vomiting 05/15/23 [History Last Taken Unknown] sennosides 8.6 mg-docusate sodium 50 mg tablet (2-in-1 Laxative) 2 tab-cap PO QHS stool softener 05/15/23 [History Last Taken Unknown] trazodone 50 mg tablet 50 mg PO QHS sleep 05/15/23 [History Last Taken Unknown] ipratropium 0.5 mg-albuterol 3 mg (2.5 mg base)/3 mL nebulization soln 3 ml inhalation Q4HWA.RT 14 days #180 mL 05/21/23 [Rx Last Taken Unknown] lorazepam 0.5 mg tablet 0.5 mg PO BID 3 days #6 tabs 05/21/23 [Rx Last Taken Unknown] prednisone 20 mg tablet See Taper PO BREAKFAST #32 tabs 05/21/23 [Rx Last Taken Unknown] Allergy/AdvReac Type Severity Reaction Status Date / Time bupropion HCl Allergy Anaphylaxis Verified 05/13/23 17:38 [From Wellbutrin] cephalexin monohydrate Allergy Anaphylaxis Verified 05/13/23 17:38 [From Keflex] levofloxacin Allergy Anaphylaxis Verified 05/13/23 17:38 Penicillins [PCN] Allergy Anaphylaxis Verified 05/13/23 17:38 Milk Containing Products AdvReac phlegm Verified 05/13/23 17:38 (Dairy) [Milk Containing Products] Family History Father Colon cancer Heart disease Surgical History History of appendectomy History of cholecystectomy History of hysterectomy History of incisional hernia repair Status post hip surgery Social History Smoking Status: Current some day smoker tobacco type: cigarettes alcohol intake: never substance use type: does not use ROS Constitutional Constitutional: Reports anorexia, chills, fatigue, malaise and weakness; Denies change in weight, fever(s), night sweats or other Eyes Eyes: Denies blurry vision, change in eye color, change in vision, discharge from eye(s), double vision, erythema, eye pain, loss of vision or other ENT HEENT: Denies abnormal hearing, dysphagia, ear pain, epistaxis, headache(s), hearing loss, nasal congestion, nasal discharge, post nasal drip, sinus pressure, sore throat or other Cardiovascular Cardiovascular: Reports chest pain and dyspnea on exertion; Denies claudication, edema, lightheadedness, orthopnea, palpitations, paroxysmal nocturnal dyspnea, rapid heart rate, syncope or other Respiratory/Chest Respiratory/Chest: Reports cough, dyspnea, productive cough, shortness of breath at rest, shortness of breath with exertion and wheezing; Denies excessive phlegm production, hemoptysis or other Gastrointestinal Gastrointestinal: Reports nausea; Denies abdominal pain, coffee ground emesis, constipation, diarrhea, dyspepsia, hematemesis, hematochezia, loose stools, melena, vomiting or other Genitourinary Genitourinary: Denies burning urination, difficulty urinating, dysuria, hematuria, nocturia, urinary frequency, urinary hesitancy, urinary incontinence, urinary urgency or other Musculoskeletal Musculoskeletal: Reports back pain; Denies arthralgias, joint pain, joint stiffness, joint swelling, myalgias, neck pain or other Neurologic Neurologic: Denies abnormal gait, abnormal speech, confusion, disequilibrium, dizziness, focal weakness, headache(s), numbness, paresthesias, seizure-like activity, seizures, syncope, tingling, tremor(s) or other Psychiatric Psychiatric: Reports anxiety and depression; Denies homicidal ideation, suicidal ideation or other Endocrine Endocrinology: Denies change in body appearance, cold intolerance, excessive sweating, heat intolerance, polydipsia, polyuria or other Hematologic/Lymphatic Hematologic/Lymphatic: Denies anemia, easy bleeding, easy bruising, lymphadenopathy or other Allergic/Immunologic Allergic/Immunologic: Denies rhinitis, hives, eczemia, asthma or other Vital Signs Vital Signs Vital Signs: 08/06/23 19:13 08/06/23 19:14 08/06/23 19:32 Temperature 97.2 F L Temperature Source Temporal Pulse Rate 113 H Respiratory Rate 26 H Respiratory Effort Short of Breath Labored Respiratory Depth Shallow Respiratory Pattern Tachypnea Blood Pressure 129/75 H Blood Pressure Mean 93 Pulse Ox 95 Oxygen Delivery Method Nasal Cannula Nasal Cannula Nasal Cannula Oxygen Flow Rate (L/min) 6 4 3 08/06/23 19:28 Temperature Temperature Source Pulse Rate 121 H Respiratory Rate 26 H Respiratory Effort Respiratory Depth Respiratory Pattern Tachypnea Blood Pressure Blood Pressure Mean Pulse Ox Oxygen Delivery Method Oxygen Flow Rate (L/min) Weight Weight: 43.5 kg Body Mass Index (BMI) 16.9 Physical Exam Const alert and oriented x3; Negative for average body habitus, healthy appearing or well nourished Constitutional Narrative: Cachectic, older, white female who seems much older than stated age, sitting up in bed, comfortable breathing at rest however significant dyspnea with conversation, appears chronically ill General Appearance: cooperative HEENT normocephalic and head/scalp atraumatic; Negative for hearing grossly normal bilaterally or moist oral mucous membranes HEENT Narrative: Dentition is poor, Mallampati is 1, no thrush, mucous membranes are slightly dry, mild hearing loss, severe temporal wasting Eyes PERRL, EOMs intact bilaterally and conjunctivae normal Eyes Narrative: No scleral icterus Neck no lymphadenopathy, supple and no JVD Neck Narrative: Trachea midline, no enlargement Resp No normal respiratory effort and No clear to auscultation bilaterally Resp Narrative: To, diffusely diminished severely with few scattered end expiratory wheezes Auscultation: wheezes; Negative for rales or rhonchi Cardio regular rate, regular rhythm, S1 normal heart sound, S2 normal heart sound, no murmurs, no rub, no gallops and no clicks GI normal to inspection, nondistended, normoactive bowel sounds, soft to palpation and non-tender GI Narrative: Scaphoid abdomen Extremity Extremity Narrative: trace LE edema, no cyanosis or clubbing, marked lean muscle mass reduction Skin no rashes or lesions noted, no wounds, skin turgor normal, no jaundice, no petechiae and no mottling Skin Narrative: Skin is thin, Neuro oriented x3, CN's II-XII intact bilaterally, moves all extremities and no focal motor deficits Neuro Narrative: Significant generalized weakness Speech: speech normal Psych Psych Narrative: Affect is flattened mood seems somewhat depressed Results Lab / Micro Data 08/06/23 19:29 08/06/23 19:29 Labs: Laboratory Results - last 24 hr 08/06/23 19:29: WBC 12.2 H, RBC 4.30, Hgb 12.5, Hct 40.8, MCV 94.9, MCH 29.1, MCHC 30.6 L, RDW Std Deviation 55.0 H, RDW Coeff of Jacinto 15.9 H, Plt Count 178, MPV 10.3, Immature Gran % (Auto) 0.200, Neut % (Auto) 86.0 H, Lymph % (Auto) 5.8 L, [place] % (Auto) 7.8, Eos % (Auto) 0.0, Baso % (Auto) 0.2, Absolute Neuts (auto) 10.5 H, Absolute Lymphs (auto) 0.71 L, Nucleated RBC % 0, Sodium 138, Potassium 4.1, Chloride 89 L, Carbon Dioxide 41.0 H, Anion Gap 8, BUN 21 H, Creatinine 0.30 L, Estim Creat Clear Calc 32.35, Est GFR (MDRD) Af Amer 274, Est GFR (MDRD) Non-Af 227, BUN/Creatinine Ratio 69.3 H, Glucose 103, Lactic Acid 1.3, Calcium 9.2 ABG Data ABG results: ABG 08/06/23 19:42 Specimen Type ART Sample Site L Radial pH 7.33 L Bicarbonate Actual 47.4 H Total CO2 > 50 Base Excess 21 H O2 Saturation 93 L O2 % 3.0 ABG pCO2 90.4 H* ABG pO2 77 Joon Test Positive O2 Delivery Device Cannula Vent Mode Not entered Crit Call To/Read Back Yes Blood Gas Notified Whom Green Blood Gas Notified Time 19:43:47 Radiology Impression Chest X-Ray 08/06/23 19:50 IMPRESSION: 1. Marketed emphysematous changes. 2. Subtle increased reticular markings, especially peripherally may represent interstitial lung disease and/or infection. Electronically Signed: Thanh Langston DO at 20:11 EST , Assessment & Plan Assessment/Plan (1) Pneumonia of both lower lobes: (2) Acute hypercapnic respiratory failure: (3) Chronic hypercapnic respiratory failure: (4) Chronic hypoxic respiratory failure: (5) COPD with acute exacerbation: PLAN: Plan Acute on chronic hypercapnic with chronic hypoxic respiratory failure 2/2 acute exacerbation of COPD +/- PNA -Pt required 6 L of O2 on presentation and pH is slightly acidotic with elevated pCO2 at >90 -tachycardia and tachypnea with conversational dyspnea -Baseline oxygen requirement is has been 3.5 L at home -Patient was enrolled in hospice but dissenrolled by [facility] prior to last admission. 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 intake overall at her last visit in late April History of pulmonary embolism -Eliquis discontinued at last hospitalization for severe anemia which since has resolved Osteoporosis -Hold alendronate and restart at discharge GERD -Cont home famotidine COPD -Stage unknown is that we have no PFTs on records -Hold home inhalers -Continue home Roxanol for pain or dyspnea Neuropathy -Continue home gabapentin Allergies -Continue home nasal spray -Continue home loratadine Depression/anxiety -Continue BuSpar and Celexa -Continue home Ativan Chronic nausea -Continue home Haldol -As needed Zofran Restless leg syndrome -Continue ropinirole Tobacco Abuse -recommend cessation -NRT available DVT prophylaxis -Lovenox 30 sq daily CODE STATUS -DNR CCA no intubation or NIV per d/w pt at the time of admission -Patient is willing to discuss hospice however would prefer [facility] to [facility] Charges/Coding Visit Charges Inpatient E&M: 15253 Init Hosp L3
--- NOTE | 2023-08-06 20:31 | CPS ---
[2020] x1 Albuterol given to pt. in ER. Pre-HR = 117, RR = 24 with diminished breath sounds. Post-HR = 110, RR = 22 with clearer breath sounds. Scattered wheezes noted.
[2023-08-06] MEDS: Meropenem 1 GM in 0.9% Normal Saline (100mL MB+) 100 ML IV (20:53)
[2023-08-06] MEDS: LORazepam 0.5 MG Tablet PO (23:13)
[2023-08-06] MEDS: Acetaminophen 325 MG Tablet 650 MG PO (23:13)
[2023-08-06] MEDS: Azithromycin 250 MG Tablet 500 MG PO (23:15)
[2023-08-06] MEDS: guaiFENesin 1,200 MG Tablet 1200 MG PO (23:17)
[2023-08-06] MEDS: busPIRone 5 MG Tablet 10 MG PO (23:18)
[2023-08-06] MEDS: 0.9% Saline Lock 10 ML Syringe IV (23:18)
[2023-08-06] MEDS: Citalopram 20 MG Tablet PO (23:19)
[2023-08-06] MEDS: Ferrous Sulfate 325 MG Tablet PO (23:19)
[2023-08-06] MEDS: Pramipexole Di-HCl 0.25 MG Tablet PO (23:20)
[2023-08-06] MEDS: traZODone 50 MG Tablet PO (23:24)
[2023-08-07] VITALS (19 sets, daily range): BP systolic 91–127; BP diastolic 52–77; PULSE 96–117; RESP 16–22; TEMP 36.1–36.7; O2SAT 93–100; BMI 15.6
[2023-08-07] MEDS: Ipratropium/Albuterol Sulfate 3 ML AMPUL.NEB INHALATION ×3 (00:53→10:58)
--- NOTE | 2023-08-07 01:04 | PCM.RX.CS ---
Consult Antibiotic Management Pharmacy has been consulted to manage selected antiobiotic: Other Type of Intervention Type of Consult: New start Suspected Infection Suspected Infection: Pneumonia Labs Labs: Sodium 138 mmol/L (136-145) 08/06/23 19:29 Potassium 4.1 mmol/L (3.5-5.1) 08/06/23 19:29 Chloride 89 mmol/L (98-107) L 08/06/23 19:29 Carbon Dioxide 41.0 mmol/L (21.0-32.0) H 08/06/23 19:29 Anion Gap 8 (5-15) 08/06/23 19:29 BUN 21 mg/dL (7-18) H 08/06/23 19:29 Creatinine 0.30 mg/dL (0.55-1.02) L 08/06/23 19:29 Est GFR (MDRD) Af Amer 274 mL/min (>60) 08/06/23 19:29 Est GFR (MDRD) Non-Af 227 mL/min (>60) 08/06/23 19:29 BUN/Creatinine Ratio 69.3 RATIO (10-20) H 08/06/23 19:29 Glucose 103 mg/dL (74-106) 08/06/23 19:29 Microbiology Microbiology: Microbiology 08/06/23 19:53 Nasal Secretion SARS-CoV-2 & FLU Antigen (Rapid) - Final Dosing Weight Weight used for dosin kg Estimated Creatinine Clearance Estimated Creatinine Clearance: 49.6 Goal Trough Goal Trough: Other Pharmacy Plan for Drug Dosing Pharmacy Plan for Drug Dosing: Amikacin IV was initiated with Extended-Interval Dosing. Initial recommendation is 600mg (15mg/kg) q36h. A random level will be drawn 10 hours after the first dose (assuming lab is able to be ordered). Further dosing will be determined from that result using pharmacy's aminoglycoside nomogram. Pharmacy Service will continue to monitor and adjust dosing as required. Follow-Up Labs Follow-Up Labs: Trough: Other (amikacin random) Date/Time Labs Ordered Labs to be done on [date and time ordered]: 08/07/23 @1000
[2023-08-07 03:43] LABS: M R Staph aureus DNA By PCR Negative (Negative); Probe Check PASS; Specimen Processing Control PASS
[2023-08-07] MEDS: 0.9% Saline Lock 10 ML Syringe IV ×2 (04:53→19:43)
[2023-08-07 08:02] LABS: Absolute Lymphocyte Count 0.33 X10^3/uL (0.83-4.51); Hematocrit 40.9 % (37-47); Hemoglobin 12.5 g/dL (12.0-15.0); Lymphocyte # 0.33 X10^3/ul (0.83-4.51); Lymphocyte % 3.8 % (19-41); Mean Corp Hgb Conc 30.6 g/dL (32-36); Mean Corpuscular Hgb 29.3 pg (27.0-32.0); Mean Platelet Vol. 10.7 fl (6.2-12.0); Monocyte# 0.42 X10^3/uL; Monocyte% 4.8 % (0-10); NRBC Flagged by Analyzer 0 % (0-5); Neutrophil # 7.95 X10^3/uL (2.7-7.7); Neutrophil % 91.2 % (47-70); POSITIVE DIFFERENTIAL YES; Platelet Count 155 K/mm3 (150-450); RBC Distribution Width CV 15.6 % (11.6-14.6); RBC Distribution Width SD 55.8 fl (35.1-43.9); Red Blood Count 4.26 M/mm3 (4.2-5.4); White Blood Count 8.7 K/mm3 (4.4-11.0)
[2023-08-07 08:04] LABS: Differential Indicated SCAN CRITERIA MET
[2023-08-07 08:17] LABS: ALB/GLOB Ratio 0.9 RATIO (0.9-2.4); AST(SGOT) 12 U/L (15-37); Alanine Aminotransfer ALT/SGPT 22 U/L (13-56); Albumin, Serum 3.3 g/dL (3.2-5.0); Alkaline Phosphatase 59 U/L (45-117); BUN 24 mg/dL (7-18); BUN/Creat Ratio 50.3 RATIO (10-20); Calcium,Total 9.4 mg/dL (8.5-10.1); Carbon Dioxide > 45.0 mmol/L (21.0-32.0); Chloride 89 mmol/L (98-107); Creatinine, Serum 0.48 mg/dL (0.55-1.02); EST Glomerular Filtration Rate 134 mL/min (>60); Est Glom Filt Rate - Afr Amer 162 mL/min (>60); Estimated Creatinine Clearance 29.75 ml/min; Globulin 3.8 g/dL (2.2-4.2); Glucose 135 mg/dL (74-106); Protein, Total 7.1 g/dL (6.4-8.2); Sodium Level 138 mmol/L (136-145)
[2023-08-07] MEDS: Fluticasone 0.05% 1 SPRAY NASAL.SRY NASAL ×2 (08:44→19:40)
[2023-08-07] MEDS: Enoxaparin 30 MG/0.3 ML Syringe SC (08:45)
[2023-08-07] MEDS: guaiFENesin 1,200 MG Tablet 1200 MG PO ×2 (08:45→19:43)
[2023-08-07] MEDS: Famotidine 20 MG Tablet PO (08:45)
[2023-08-07] MEDS: busPIRone 5 MG Tablet 10 MG PO ×2 (08:45→19:44)
[2023-08-07] MEDS: Potassium Chloride Oral Tablet 20 MEQ PO (08:46)
[2023-08-07] MEDS: Aspirin E.C. 81 MG Tablet PO (08:46)
[2023-08-07] MEDS: Loratadine 10 MG Tablet PO (08:46)
[2023-08-07] MEDS: Furosemide 40 MG Tablet PO (08:46)
[2023-08-07] MEDS: Ferrous Sulfate 325 MG Tablet PO ×2 (08:46→17:03)
[2023-08-07] MEDS: Ensure Plus High Protein 120 ML LIQUID PO ×3 (08:51→17:05)
[2023-08-07] MEDS: LORazepam 0.5 MG Tablet PO ×2 (08:51→19:39)
[2023-08-07] MEDS: Gabapentin 300 MG Capsule PO ×2 (08:51→17:03)
[2023-08-07 09:49] LABS: Differential Comment SCANNED
--- NOTE | 2023-08-07 10:19 | PCM.PN.HOSP ---
Reason for Visit Reason for Visit: Diagnoses Pneumonia, unspecified organism (08/06/23) Chronic obstructive pulmonary disease with (acute) exacerbation (08/06/23) Acute respiratory failure with hypercapnia (08/06/23) Chronic respiratory failure with hypoxia (08/06/23) Chronic respiratory failure with hypercapnia (08/06/23) Objective Data Objective Data Vital Signs: Vital Signs Temp Pulse Resp BP Pulse Ox O2 Del Method O2 Flow Rate 96.9 F L 97 16 120/65 96 Nasal Cannula 2 08/07/23 08:38 08/07/23 08:38 08/07/23 08:38 08/07/23 08:38 08/07/23 09:01 08/07/23 09:01 08/07/23 09:01 Oxygen Flow Rate (L/min) 2 Oxygen Delivery Method Nasal Cannula Weight: 40 kg Body Mass Index (BMI) 15.6 Intake & Output: Intake and Output for Last 24 Hours 08/05/23 08/06/23 08/07/23 23:59 23:59 23:59 Intake Total 360 / 360 342.4 / 342.4 Balance 360 / 360 342.4 / 342.4 Medical Nutrition Assessment Dietitian: Malnutrition Criteria Met Start: 08/07/23 10:10 Freq: Status: Active Protocol: Document 08/07/23 10:10 AG (Rec: 08/07/23 10:10 AG [id number]) Nutrition Malnutrition Evidence of Malnutrition Exists Yes Malnutrition (severe): Chronic Evidenced By Suboptimal Energy Intake ( Severe),Physical Changes ( Severe) Clinical Problem Chronic Disease or Condition Related Malnutrition Etiology severe, chronic malnutrition related to inadequate energy intake Signs/Symptoms as evidenced by estimated PO intake meeting <50% of estimated energy needs > 3 months; Severe muscle wasting/ fat loss evident per physical exam in orbital, clavicle, acromion and temporal areas; BMI 15.6 Status Active Problem Recommendation Dietitian Recommendations/Changes regular diet; ensure plus high protein 120mL 4x/day given evidence of malnutrition Lab / Micro Data 08/07/23 07:45 08/07/23 07:45 Labs: Laboratory Results - last 24 hr 08/06/23 19:29: WBC 12.2 H, RBC 4.30, Hgb 12.5, Hct 40.8, MCV 94.9, MCH 29.1, MCHC 30.6 L, RDW Std Deviation 55.0 H, RDW Coeff of Jacinto 15.9 H, Plt Count 178, MPV 10.3, Immature Gran % (Auto) 0.200, Neut % (Auto) 86.0 H, Lymph % (Auto) 5.8 L, [place] % (Auto) 7.8, Eos % (Auto) 0.0, Baso % (Auto) 0.2, Absolute Neuts (auto) 10.5 H, Absolute Lymphs (auto) 0.71 L, Nucleated RBC % 0, Sodium 138, Potassium 4.1, Chloride 89 L, Carbon Dioxide 41.0 H, Anion Gap 8, BUN 21 H, Creatinine 0.30 L, Estim Creat Clear Calc 32.35, Est GFR (MDRD) Af Amer 274, Est GFR (MDRD) Non-Af 227, BUN/Creatinine Ratio 69.3 H, Glucose 103, Lactic Acid 1.3, Calcium 9.2 08/06/23 23:15: MRSA (PCR) Negative 08/07/23 07:45: WBC 8.7, RBC 4.26, Hgb 12.5, Hct 40.9, MCV 96.0, MCH 29.3, MCHC 30.6 L, RDW Std Deviation 55.8 H, RDW Coeff of Jacinto 15.6 H, Plt Count 155, MPV 10.7, Immature Gran % (Auto) 0.200, Neut % (Auto) 91.2 H, Lymph % (Auto) 3.8 L, [place] % (Auto) 4.8, Eos % (Auto) 0.0, Baso % (Auto) 0.0, Absolute Neuts (auto) 8.0 H, Absolute Lymphs (auto) 0.33 L, Nucleated RBC % 0, Differential Comment SCANNED, Sodium 138, Potassium 4.0, Chloride 89 L, Carbon Dioxide > 45.0 H*, Anion Gap TNP, BUN 24 H, Creatinine 0.48 L, Estim Creat Clear Calc 29.75, Est GFR (MDRD) Af Amer 162, Est GFR (MDRD) Non-Af 134, BUN/Creatinine Ratio 50.3 H, Glucose 135 H, Calcium 9.4, Phosphorus 3.0, Magnesium 2.0, Total Bilirubin 0.40, AST 12 L, ALT 22, Alkaline Phosphatase 59, Total Protein 7.1, Albumin 3.3, Globulin 3.8, Albumin/Globulin Ratio 0.9 Micro: Microbiology 08/06/23 23:15 Mucosa - Nasopharyngeal Respiratory Panel (PCR) - Final 08/06/23 19:53 Nasal Secretion SARS-CoV-2 & FLU Antigen (Rapid) - Final ABG Data ABG results: ABG 08/06/23 19:42 Specimen Type ART Sample Site L Radial pH 7.33 L Bicarbonate Actual 47.4 H Total CO2 > 50 Base Excess 21 H O2 Saturation 93 L O2 % 3.0 ABG pCO2 90.4 H* ABG pO2 77 Joon Test Positive O2 Delivery Device Cannula Vent Mode Not entered Crit Call To/Read Back Yes Blood Gas Notified Whom Geren Blood Gas Notified Time 19:43:47 Radiography Diagnostic Testing: Radiology Impression Chest X-Ray 08/06/23 19:50 IMPRESSION: 1. Marketed emphysematous changes. 2. Subtle increased reticular markings, especially peripherally may represent interstitial lung disease and/or infection. Electronically Signed: Thanh Langston, DO at 20:11 EST , Assessment & Plan Assessment/Plan (1) Pneumonia of both lower lobes: (2) Acute hypercapnic respiratory failure: (3) Chronic hypercapnic respiratory failure: (4) Chronic hypoxic respiratory failure: (5) COPD with acute exacerbation: PLAN: Plan Acute on chronic hypercapnic with chronic hypoxic respiratory failure 2/2 acute exacerbation of COPD +/- PNA -Pt required 6 L of O2 on presentation and pH is slightly acidotic with elevated pCO2 at >90 -tachycardia and tachypnea with conversational dyspnea -Baseline oxygen requirement is has been 3.5 L at home -Patient was enrolled in hospice but dissenrolled by [facility] prior to last admission. 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 intake overall at her last visit in late April History of pulmonary embolism -Eliquis discontinued at last hospitalization for severe anemia which since has resolved Osteoporosis -Hold alendronate and restart at discharge GERD -Cont home famotidine COPD -Stage unknown is that we have no PFTs on records -Hold home inhalers -Continue home Roxanol for pain or dyspnea Neuropathy -Continue home gabapentin Allergies -Continue home nasal spray -Continue home loratadine Depression/anxiety -Continue BuSpar and Celexa -Continue home Ativan Chronic nausea -Continue home Haldol -As needed Zofran Restless leg syndrome -Continue ropinirole Tobacco Abuse -recommend cessation -NRT available DVT prophylaxis -Lovenox 30 sq daily CODE STATUS -DNR CCA no intubation or NIV per d/w pt at the time of admission -Patient is willing to discuss hospice however would [facility]
--- NOTE | 2023-08-07 10:47 | PCM.DC.SUM ---
Providers Date of Admission: 08/06/23 Primary Care Physician: Dr. Shayne Winter MD Reason For Visit: ACUTE ON CHRONIC HYPOXIC & HYPERCAPNIC RESP FAILUR Diagnosis Discharge Diagnosis (1) Pneumonia of both lower lobes: Status: Acute Code(s): J18.9 - Pneumonia, unspecified organism (2) Acute hypercapnic respiratory failure: Status: Acute Code(s): J96.02 - Acute respiratory failure with hypercapnia (3) Chronic hypercapnic respiratory failure: Status: Chronic Code(s): J96.12 - Chronic respiratory failure with hypercapnia (4) Chronic hypoxic respiratory failure: Status: Chronic Code(s): J96.11 - Chronic respiratory failure with hypoxia (5) COPD with acute exacerbation: Status: Chronic Code(s): J44.1 - Chronic obstructive pulmonary disease with (acute) exacerbation Medications at Discharge Home Medications furosemide 40 mg tablet 40 mg PO DAILY diuretic 09/19/16 gabapentin 300 mg capsule 300 mg PO BIDCM neuropathy 09/19/16 ropinirole 0.5 mg tablet 0.5 mg PO QHS restless legs 09/19/16 famotidine 40 mg tablet 40 mg PO DAILY GERD 10/24/18 albuterol sulfate 1.25 mg/3 mL solution for nebulization 1.25 mg inhalation Q4H sob 04/04/21 citalopram 20 mg tablet 20 mg PO QHS mood 04/04/21 cyanocobalamin (vitamin B-12) 2,000 mcg tablet,extended release (Vitamin B-12 ER) 2,000 mcg PO DAILY supplement 04/04/21 fluticasone furoate 200 mcg-vilanterol 25 mcg/dose inhalation powder (Breo Ellipta) 1 inh inhalation BID copd 04/04/21 loratadine 10 mg tablet 10 mg PO DAILY allergies 04/04/21 [id number] tablet 1 tab PO DAILY supplement 04/04/21 potassium chloride 20 mEq tablet,extended release(part/cryst) 20 meq PO DAILY supplement 04/04/21 umeclidinium 62.5 mcg/actuation blister powder for inhalation (Incruse Ellipta) 1 inh inhalation DAILY copd 04/04/21 aspirin 81 mg tablet,delayed release 81 mg PO DAILY heart health 04/20/21 benzonatate 100 mg capsule 100 mg PO BID PRN cough 05/13/23 buspirone 10 mg tablet 10 mg PO BID anxiety 05/15/23 ferrous sulfate 325 mg (65 mg iron) tablet (FeroSul) 325 mg PO BID Iron Supplement 05/15/23 fluticasone propionate 50 mcg/actuation nasal spray,suspension 1 spray intranasal BID Allergies 05/15/23 haloperidol 1 mg tablet 1 mg PO Q4H PRN nausea and vomiting 05/15/23 lorazepam 0.5 mg tablet (Ativan) 0.5 mg PO BID Anxiety 05/15/23 morphine concentrate 100 mg/5 mL (20 mg/mL) oral solution 5 mg PO Q6H PRN pain or dyspnea 05/15/23 promethazine 25 mg tablet 25 mg PO Q6H PRN nausea and vomiting 05/15/23 sennosides 8.6 mg-docusate sodium 50 mg tablet (2-in-1 Laxative) 2 tab-cap PO QHS stool softener 05/15/23 trazodone 50 mg tablet 50 mg PO QHS sleep 05/15/23 ipratropium 0.5 mg-albuterol 3 mg (2.5 mg base)/3 mL nebulization soln 3 ml inhalation Q4HWA.RT 14 days #180 mL 05/21/23 lorazepam 0.5 mg tablet 0.5 mg PO BID 3 days #6 tabs 05/21/23 prednisone 20 mg tablet See Taper PO BREAKFAST #32 tabs 05/21/23 Medical Records Data Medical Nutrition Assessment Dietitian: Malnutrition Criteria Met Start: 08/07/23 10:10 Freq: Status: Active Protocol: Document 08/07/23 10:10 AG (Rec: 08/07/23 10:10 [id number]) Nutrition Malnutrition Evidence of Malnutrition Exists Yes Malnutrition (severe): Chronic Evidenced By Suboptimal Energy Intake ( Severe),Physical Changes ( Severe) Clinical Problem Chronic Disease or Condition Related Malnutrition Etiology severe, chronic malnutrition related to inadequate energy intake Signs/Symptoms as evidenced by estimated PO intake meeting <50% of estimated energy needs > 3 months; Severe muscle wasting/ fat loss evident per physical exam in orbital, clavicle, acromion and temporal areas; BMI 15.6 Status Active Problem Recommendation Dietitian Recommendations/Changes regular diet; ensure plus high protein 120mL 4x/day given evidence of malnutrition Weight / BMI Weight Weight: 40 kg Body Mass Index (BMI) 15.6 ABG / Lab / Microbiology Data 08/07/23 07:45 08/07/23 07:45 Laboratory: Laboratory Results - last 24 hr 08/06/23 19:29: WBC 12.2 H, RBC 4.30, Hgb 12.5, Hct 40.8, MCV 94.9, MCH 29.1, MCHC 30.6 L, RDW Std Deviation 55.0 H, RDW Coeff of Jacinto 15.9 H, Plt Count 178, MPV 10.3, Immature Gran % (Auto) 0.200, Neut % (Auto) 86.0 H, Lymph % (Auto) 5.8 L, [place] % (Auto) 7.8, Eos % (Auto) 0.0, Baso % (Auto) 0.2, Absolute Neuts (auto) 10.5 H, Absolute Lymphs (auto) 0.71 L, Nucleated RBC % 0, Sodium 138, Potassium 4.1, Chloride 89 L, Carbon Dioxide 41.0 H, Anion Gap 8, BUN 21 H, Creatinine 0.30 L, Estim Creat Clear Calc 32.35, Est GFR (MDRD) Af Amer 274, Est GFR (MDRD) Non-Af 227, BUN/Creatinine Ratio 69.3 H, Glucose 103, Lactic Acid 1.3, Calcium 9.2 08/06/23 23:15: MRSA (PCR) Negative 08/07/23 07:45: WBC 8.7, RBC 4.26, Hgb 12.5, Hct 40.9, MCV 96.0, MCH 29.3, MCHC 30.6 L, RDW Std Deviation 55.8 H, RDW Coeff of Jacinto 15.6 H, Plt Count 155, MPV 10.7, Immature Gran % (Auto) 0.200, Neut % (Auto) 91.2 H, Lymph % (Auto) 3.8 L, [place] % (Auto) 4.8, Eos % (Auto) 0.0, Baso % (Auto) 0.0, Absolute Neuts (auto) 8.0 H, Absolute Lymphs (auto) 0.33 L, Nucleated RBC % 0, Differential Comment SCANNED, Sodium 138, Potassium 4.0, Chloride 89 L, Carbon Dioxide > 45.0 H*, Anion Gap TNP, BUN 24 H, Creatinine 0.48 L, Estim Creat Clear Calc 29.75, Est GFR (MDRD) Af Amer 162, Est GFR (MDRD) Non-Af 134, BUN/Creatinine Ratio 50.3 H, Glucose 135 H, Calcium 9.4, Phosphorus 3.0, Magnesium 2.0, Total Bilirubin 0.40, AST 12 L, ALT 22, Alkaline Phosphatase 59, Total Protein 7.1, Albumin 3.3, Globulin 3.8, Albumin/Globulin Ratio 0.9 Microbiology: Microbiology 08/06/23 23:15 Mucosa - Nasopharyngeal Respiratory Panel (PCR) - Final 08/06/23 19:53 Nasal Secretion SARS-CoV-2 & FLU Antigen (Rapid) - Final ABG: ABG 08/06/23 19:42 Specimen Type ART Sample Site L Radial pH 7.33 L Bicarbonate Actual 47.4 H Total CO2 > 50 Base Excess 21 H O2 Saturation 93 L O2 % 3.0 ABG pCO2 90.4 H* ABG pO2 77 Joon Test Positive O2 Delivery Device Cannula Vent Mode Not entered Crit Call To/Read Back Yes Blood Gas Notified Whom Green Blood Gas Notified Time 19:43:47 Radiography Diagnostic Testing: Radiology Impression Chest X-Ray 08/06/23 19:50 IMPRESSION: 1. Marketed emphysematous changes. 2. Subtle increased reticular markings, especially peripherally may represent interstitial lung disease and/or infection. Electronically Signed: Thanh Langston DO at 20:11 EST , Discharge Plan Admission Admit Date/Time: 08/06/23 20:40 Attending Provider: Mike Jarquin Primary Care Provider: Shayne Winter Chi Consulting Providers: Essence Anne Discharge Orders/Prescriptions Prescriptions: No Action gabapentin 300 MG capsule 300 mg PO BIDCM Patient Comments: pinched nerves ropinirole 0.5 MG tablet 0.5 mg PO QHS Patient Comments: restless legs furosemide 40 MG tablet 40 mg PO DAILY Patient Comments: water pill famotidine 40 tablet 40 mg PO DAILY Incruse Ellipta 62.5 mcg/actuation blister with device 1 inh INHALATION DAILY [id number]-xpkbzydh-[id number] Tablet 1 tab PO DAILY albuterol sulfate 1.25 mg/3 mL Solution For Nebulization 1.25 mg INHALATION Q4H citalopram 20 mg tablet 20 mg PO QHS potassium chloride 20 mEq tablet,ER particles/crystals 20 meq PO DAILY cyanocobalamin (vitamin B-12) [Vitamin B-12] 2,000 mcg Tablet Extended Release 2,000 mcg PO DAILY loratadine 10 mg Tablet 10 mg PO DAILY fluticasone furoate-vilanterol [Breo Ellipta] 200-25 mcg/dose blister with device 1 inh INHALATION BID aspirin 81 mg Tablet,Delayed Release (Dr/Ec) 81 mg PO DAILY benzonatate 100 mg capsule 100 mg PO BID PRN (Reason: cough) Patient Comments: TAKE 1 CAPSULE EVERY 12 HOURS NEEDED FOR COUGH ferrous sulfate [FeroSul] 325 mg (65 mg iron) tablet 325 mg PO BID lorazepam [Ativan] 0.5 mg tablet 0.5 mg PO BID buspirone 10 mg tablet 10 mg PO BID fluticasone propionate 50 mcg/actuation spray,suspension 1 spray INTRANASAL BID haloperidol 1 mg tablet 1 mg PO Q4H PRN (Reason: nausea and vomiting) morphine concentrate 100 mg/5 mL (20 mg/mL) solution 5 mg PO Q6H PRN (Reason: pain or dyspnea) promethazine 25 mg tablet 25 mg PO Q6H PRN (Reason: nausea and vomiting) trazodone 50 mg tablet 50 mg PO QHS sennosides-docusate sodium [2-in-1 Laxative] 8.6-50 mg tablet 2 tab-cap PO QHS ipratropium-albuterol 0.5 mg-3 mg(2.5 mg base)/3 mL Solution For Nebulization 3 ml inhalation Q4HWA.RT 14 Days Qty: 180 0RF prednisone 20 mg Tablet See Taper PO BREAKFAST Qty: 32 0RF Taper: Prednisone Taper 60 mg WITH BREAKFAST for 3 Days and 0 Hour 50 mg WITH BREAKFAST for 3 Days and 0 Hour 40 mg WITH BREAKFAST for 3 Days and 0 Hour 30 mg WITH BREAKFAST for 3 Days and 0 Hour 20 mg WITH BREAKFAST for 3 Days and 0 Hour 10 mg WITH BREAKFAST for 3 Days and 0 Hour lorazepam 0.5 mg tablet 0.5 mg PO BID 3 Days Qty: 6 0RF Referrals / Follow Up: Shayne Winter Chi, MD [Primary Care Provider] -
--- NOTE | 2023-08-07 10:50 | CASEMGMT ---
Last visit patient was discharged to [facility]. SW called [facility] and they did not have patient in their system. ZAIDA then called [facility] and spoke with Hamida. Hamida said patient revoked [facility] while she was at [facility]. Sharifa KONG
--- NOTE | 2023-08-07 11:14 | CASEMGMT ---
ZAIDA called [facility]. Patient's director of casework is Nata Cao ([phone]). Patient has an independent aide named Hayley that provides 2 hours of care M-F. Patient also gets 14 meals delivered every week from [employer]. Per Nata patient revoked hospice as, I do not want to . Sharifa Wilburn ORIENTAL R[employer] STRETCHER LUANN
--- NOTE | 2023-08-07 12:01 | PCM.PN.HOSP ---
Reason for Visit Reason for Visit: Diagnoses Pneumonia, unspecified organism (08/06/23) Chronic obstructive pulmonary disease with (acute) exacerbation (08/06/23) Acute respiratory failure with hypercapnia (08/06/23) Chronic respiratory failure with hypoxia (08/06/23) Chronic respiratory failure with hypercapnia (08/06/23) Subjective Subjective Patient is a 78-year-old lady admitted with progressive shortness of breath Objective Data Objective Data Vital Signs: Vital Signs Temp Pulse Resp BP Pulse Ox O2 Del Method O2 Flow Rate 96.9 F L 109 H 20 H 120/65 96 Nasal Cannula 2 08/07/23 08:38 08/07/23 10:58 08/07/23 10:58 08/07/23 08:38 08/07/23 09:01 08/07/23 09:01 08/07/23 09:01 Oxygen Flow Rate (L/min) 2 Oxygen Delivery Method Nasal Cannula Weight: 40 kg Body Mass Index (BMI) 15.6 Intake & Output: Intake and Output for Last 24 Hours 08/05/23 08/06/23 08/07/23 23:59 23:59 23:59 Intake Total 360 / 360 342.4 / 342.4 Balance 360 / 360 342.4 / 342.4 Medical Nutrition Assessment Dietitian: Malnutrition Criteria Met Start: 08/07/23 10:10 Freq: Status: Active Protocol: Document 08/07/23 10:10 AG (Rec: 08/07/23 10:10 AG [id number]) Nutrition Malnutrition Evidence of Malnutrition Exists Yes Malnutrition (severe): Chronic Evidenced By Suboptimal Energy Intake ( Severe),Physical Changes ( Severe) Clinical Problem Chronic Disease or Condition Related Malnutrition Etiology severe, chronic malnutrition related to inadequate energy intake Signs/Symptoms as evidenced by estimated PO intake meeting <50% of estimated energy needs > 3 months; Severe muscle wasting/ fat loss evident per physical exam in orbital, clavicle, acromion and temporal areas; BMI 15.6 Status Active Problem Recommendation Dietitian Recommendations/Changes regular diet; ensure plus high protein 120mL 4x/day given evidence of malnutrition Lab / Micro Data 08/07/23 07:45 08/07/23 07:45 Labs: Laboratory Results - last 24 hr 08/06/23 19:29: WBC 12.2 H, RBC 4.30, Hgb 12.5, Hct 40.8, MCV 94.9, MCH 29.1, MCHC 30.6 L, RDW Std Deviation 55.0 H, RDW Coeff of Jacinto 15.9 H, Plt Count 178, MPV 10.3, Immature Gran % (Auto) 0.200, Neut % (Auto) 86.0 H, Lymph % (Auto) 5.8 L, [place] % (Auto) 7.8, Eos % (Auto) 0.0, Baso % (Auto) 0.2, Absolute Neuts (auto) 10.5 H, Absolute Lymphs (auto) 0.71 L, Nucleated RBC % 0, Sodium 138, Potassium 4.1, Chloride 89 L, Carbon Dioxide 41.0 H, Anion Gap 8, BUN 21 H, Creatinine 0.30 L, Estim Creat Clear Calc 32.35, Est GFR (MDRD) Af Amer 274, Est GFR (MDRD) Non-Af 227, BUN/Creatinine Ratio 69.3 H, Glucose 103, Lactic Acid 1.3, Calcium 9.2 08/06/23 23:15: MRSA (PCR) Negative 08/07/23 07:45: WBC 8.7, RBC 4.26, Hgb 12.5, Hct 40.9, MCV 96.0, MCH 29.3, MCHC 30.6 L, RDW Std Deviation 55.8 H, RDW Coeff of Jacinto 15.6 H, Plt Count 155, MPV 10.7, Immature Gran % (Auto) 0.200, Neut % (Auto) 91.2 H, Lymph % (Auto) 3.8 L, [place] % (Auto) 4.8, Eos % (Auto) 0.0, Baso % (Auto) 0.0, Absolute Neuts (auto) 8.0 H, Absolute Lymphs (auto) 0.33 L, Nucleated RBC % 0, Differential Comment SCANNED, Sodium 138, Potassium 4.0, Chloride 89 L, Carbon Dioxide > 45.0 H*, Anion Gap TNP, BUN 24 H, Creatinine 0.48 L, Estim Creat Clear Calc 29.75, Est GFR (MDRD) Af Amer 162, Est GFR (MDRD) Non-Af 134, BUN/Creatinine Ratio 50.3 H, Glucose 135 H, Calcium 9.4, Phosphorus 3.0, Magnesium 2.0, Total Bilirubin 0.40, AST 12 L, ALT 22, Alkaline Phosphatase 59, Total Protein 7.1, Albumin 3.3, Globulin 3.8, Albumin/Globulin Ratio 0.9 Micro: Microbiology 08/07/23 10:10 Urine, Random Legionella Antigen - Final 08/07/23 10:10 Urine, Random Streptococcus pneumoniae Antigen (M - Final 08/06/23 23:15 Mucosa - Nasopharyngeal Respiratory Panel (PCR) - Final 08/06/23 19:53 Nasal Secretion SARS-CoV-2 & FLU Antigen (Rapid) - Final ABG Data ABG results: ABG 08/06/23 19:42 Specimen Type ART Sample Site L Radial pH 7.33 L Bicarbonate Actual 47.4 H Total CO2 > 50 Base Excess 21 H O2 Saturation 93 L O2 % 3.0 ABG pCO2 90.4 H* ABG pO2 77 Joon Test Positive O2 Delivery Device Cannula Vent Mode Not entered Crit Call To/Read Back Yes Blood Gas Notified Whom Green Blood Gas Notified Time 19:43:47 Radiography Diagnostic Testing: Radiology Impression Chest X-Ray 08/06/23 19:50 IMPRESSION: 1. Marketed emphysematous changes. 2. Subtle increased reticular markings, especially peripherally may represent interstitial lung disease and/or infection. Electronically Signed: Thanh Langston, DO at 20:11 EST , Physical Exam Narrative GENERAL: Cachectic and frail looking HEENT: Atraumatic; normocephalic EYES; Anicteric, Normal Conjunctiva NECK; supple, normal thyroid, RESPIRATORY: Diminished to auscultation CARDIOVASCULAR: Regular S1 S2, GI: soft, normoactive bowel sounds, : No Renal angle tenderness; EXTREMITIES: No edema, no clubbing, MUSCULOSKELETAL: no muscle wasting NEURO: Awake; no lateralizing signs. SKIN: No Rash PSYCH; Flat affect Assessment & Plan Assessment/Plan (1) COPD with acute exacerbation: PLAN: Plan Patient is a 78-year-old lady admitted with progressive shortness of breath 1. Acute on chronic hypercapnic with chronic hypoxic respiratory failure secondary to combination of COPD with acute exacerbation as well as suspected pneumonia -Pt required 6 L of O2 on presentation and pH is slightly acidotic with elevated pCO2 at >90; tachycardia and tachypnea with conversational dyspnea -Baseline oxygen requirement is has been 3.5 L at home. Admitted to regular nursing floor managed with broad-spectrum antibiotic therapy (amikacin as well as azithromycin) in addition to steroids and bronchodilator treatment with DuoNeb. Patient was enrolled in hospice but dissenrolled by [facility] prior to last admission. Pt is interested in re-enrolling but would like another Hospice provider 2. 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 Dietitian consultation placed on admission 3. History of pulmonary embolism -Eliquis discontinued at last hospitalization for severe anemia which since has resolved 4. Osteoporosis ? Patient is on alendronate with plans to resume on discharge 5. GERD ? On famotidine 6. Peripheral neuropathy ? Patient is on gabapentin 7. Depression/anxiety -Patient is on BuSpar as well as Celexa continue 8. Chronic nausea Patient is on Haldol as well as Zofran as needed 9. Restless leg syndrome -Continue ropinirole 10. Tobacco dependence ? Counseled on cessation, offered nicotine patch for tobacco cravings 11. DVT prophylaxis ? On enoxaparin Time spent in the patient's overall evaluation,decision-making process, review of diagnostic data, adjustment of management, discussion with other providers, nursing nursing and ancillary staff involved in patient's care documentation, 52-minute Charges/Coding Visit Charges Inpatient E&M: 34102 [facility] L3
[2023-08-07] MEDS: Acetaminophen 325 MG Tablet 650 MG PO (14:15)
--- NOTE | 2023-08-07 15:30 | CASEMGMT ---
Addendum entered by Alma Murdock 08/08/23 09:40: ELADIO DAWSON spoke w/pt re: if she wants a hospital bed @ her home, as her son, Juan C, told this RN SAMIR he thought she may want one. Pt states she is not interested in getting a hospital bed at this time. Original Note: RN?CM?BIOCHEMISTRY TECHNICIAN?CM?to room to meet with patient for initial transition planning/care coordination?assessment.?RN?CM?introduced self and role at [facility].? Pt voices understanding and consents to?assessment?at this time.? Pt resting in bed in no distress at this time.? Pt is A/O at this time and answers all questions appropriately.?? Care providers, pharmacy, and demographics verified/updated at this time. PCP: Pt states she no longer sees Dr Winter. She states she now has [facility] and they do virtual visits w/her, as it is difficult for her to get out of the house. Pt is not sure of the name of PCP. Specialists: pt states none currently Preferred Pharmacy: [facility] @ discharge. Otherwise, [facility] Insurance: [employer] Prescription Benefit:?Yes Living Will/HPOA:?Pt has HCPOA, who is her son, Juan C. LNOK: son/POA, Juan C. Granddaughter, Debbie Living Arrangements: lives in a mobile home w/3-4 steps to enter. GDDebbie, and her children are staying w/pt to help take care of her. Pt states she mostly manages her own medications, but Debbie helps if needed. Debbie also does home mgnt: cooking/cleaning/laundry, and pt states she would help her w/personal care/bathing, if needed. Pt states she had been able to ambulate to the bathroom on her own up until yesterday morning. She states she has been so weak, she has not been able to even sponge bathe herself, but that Debbie can assist her w/this once she returns home. Transportation:?family DME: States has the following DME:?shower chair, grab bars, walker, medical alert, nebulizer, pulse ox, and O2 through [employer] @ 3 l/m. Pt states she has a concentrator and portability. RN CM spoke w/pt's son, Juan C, who states they can bring in portable tank @ d/c for pt to go home on. ?Pt states no need for further DME at this time.? When ELADIO DAWSON spoke w/Juan C, he states pt may want a hospital bed. HHC/SNF: [facility]. Pt states she just returned home about a month ago. She currently has an aide through [facility] that comes 2 hrs/day M-. Pt states she is active w/[facility] for SN and therapy. Discussed discharge planning. Pt states she is still not interested in going back on Hospice. She states she is active w/Palliative care, she thinks through [facility]. She would like to resume w/Palliative and also w/HHC through [facility]. She declines wanting list of other HHC options. ELADIO DAWSON [facility]ley [facility] and she states pt is active w/them and they are aware pt has been admitted to [facility]. ELADIO DAWSON also called [facility] and spoke w/[facility]. She states pt may be active w/the [place] office and she will have Rosanna call this ELADIO DAWSON back tomorrow to verify. Pt wishes to return home and states has no concerns with going home at time of discharge.? Pt states she does not drink ETOH.??She states she still smokes, but only about 2-3 cigarettes throughout the day. CM?to follow for any increase in home oxygen needs and any further discharge planning/needs.? Pt voices no further concerns/needs at this time.? Advised pt to ask for?CM?if any further questions/concerns/needs arise.? Voices understanding. PLAN:??Home w/resumption of Palliative care and HHC. CM to follow for possible increase in Home O2 needs. Follow for possible hospital bed. Follow PT/OT. Monica DUARTEN?RN?CM
[2023-08-07] MEDS: MorphINE SOLN 10 MG/0.5 ML PO.SYRINGE 5 MG PO (17:02)
[2023-08-07] MEDS: Senna/Docusate Sodium 1 Tablet 2 TABLET PO (19:40)
[2023-08-07] MEDS: Azithromycin 250 MG Tablet 500 MG PO (19:41)
[2023-08-07] MEDS: Citalopram 20 MG Tablet PO (19:42)
[2023-08-07] MEDS: traZODone 50 MG Tablet PO (19:42)
[2023-08-07] MEDS: Pramipexole Di-HCl 0.25 MG Tablet PO (19:43)
[2023-08-08] VITALS (12 sets, daily range): BP systolic 97–113; BP diastolic 62–71; PULSE 94–120; RESP 14–24; TEMP 3.3–38; O2SAT 97–100; BMI 15.6
[2023-08-08] MEDS: Ipratropium/Albuterol Sulfate 3 ML AMPUL.NEB INHALATION ×4 (03:26→19:59)
[2023-08-08] MEDS: 0.9% Saline Lock 10 ML Syringe IV ×2 (04:40→20:07)
[2023-08-08 06:06] LABS: Absolute Lymphocyte Count 0.48 X10^3/uL (0.83-4.51); Absolute Neutrophil Count 8.1 X10^3/uL (2.0-7.7); Basophil# 0.01 X10^3/uL; Basophil% 0.1 % (0-1); Hematocrit 37.9 % (37-47); Hemoglobin 11.4 g/dL (12.0-15.0); Lymphocyte # 0.48 X10^3/ul (0.83-4.51); Lymphocyte % 5.2 % (19-41); Mean Corp Hgb Conc 30.1 g/dL (32-36); Mean Corpuscular Volume 96.4 fL (81-99); Mean Platelet Vol. 10.8 fl (6.2-12.0); Monocyte# 0.66 X10^3/uL; Monocyte% 7.1 % (0-10); NRBC Flagged by Analyzer 0 % (0-5); Neutrophil # 8.12 X10^3/uL (2.7-7.7); Neutrophil % 87.3 % (47-70); POSITIVE DIFFERENTIAL YES; Platelet Count 167 K/mm3 (150-450); RBC Distribution Width CV 15.9 % (11.6-14.6); RBC Distribution Width SD 56.9 fl (35.1-43.9); Red Blood Count 3.93 M/mm3 (4.2-5.4); White Blood Count 9.3 K/mm3 (4.4-11.0)
[2023-08-08 06:09] LABS: Differential Indicated SCAN CRITERIA MET
[2023-08-08 06:41] LABS: Differential Comment SCANNED
--- NOTE | 2023-08-08 07:01 | NURSING ---
Pts primary rn aware of critical co2 result of greater than 45 at this time.
[2023-08-08 07:02] LABS: BUN 24 mg/dL (7-18); Calcium,Total 9.4 mg/dL (8.5-10.1); Carbon Dioxide > 45.0 mmol/L (21.0-32.0); Chloride 93 mmol/L (98-107); Creatinine, Serum 0.26 mg/dL (0.55-1.02); EST Glomerular Filtration Rate 269 mL/min (>60); Est Glom Filt Rate - Afr Amer 326 mL/min (>60); Estimated Creatinine Clearance 29.75 ml/min; Glucose 128 mg/dL (74-106); Magnesium 2.4 mg/dL (1.6-2.6); Phosphorus 2.4 mg/dL (2.5-4.9); Potassium 4.3 mmol/L (3.5-5.1); Sodium Level 141 mmol/L (136-145)
--- NOTE | 2023-08-08 08:06 | PN.HOSP_ITS ---
Reason for Visit Reason for Visit: Diagnoses Pneumonia, unspecified organism (08/06/23) Chronic obstructive pulmonary disease with (acute) exacerbation (08/06/23) Acute respiratory failure with hypercapnia (08/06/23) Chronic respiratory failure with hypoxia (08/06/23) Chronic respiratory failure with hypercapnia (08/06/23) Subjective Subjective Patient seen remains significantly lethargic adjusted her psychotropic medication Objective Data Objective Data Vital Signs: Vital Signs Temp Pulse Resp BP Pulse Ox O2 Del Method O2 Flow Rate 97 F L 98 14 105/66 99 Nasal Cannula 3 08/08/23 03:18 08/08/23 03:30 08/08/23 03:30 08/08/23 03:18 08/08/23 03:30 08/08/23 03:55 08/08/23 03:55 Oxygen Flow Rate (L/min) 3 Oxygen Delivery Method Nasal Cannula Weight: 40 kg Body Mass Index (BMI) 15.6 Intake & Output: Intake and Output for Last 24 Hours 08/06/23 08/07/23 08/08/23 23:59 23:59 23:59 Intake Total 360 / 360 342.4 / 582.4 440 / 440 Output Total 550 / 850 600 / 600 Balance 360 / 360 -207.6 / -267.6 -160 / -160 Medical Nutrition Assessment Dietitian: Malnutrition Criteria Met Start: 08/07/23 10:10 Freq: Status: Active Protocol: Document 08/07/23 10:10 (Rec: 08/07/23 10:10 [id number]) Nutrition Malnutrition Evidence of Malnutrition Exists Yes Malnutrition (severe): Chronic Evidenced By Suboptimal Energy Intake ( Severe),Physical Changes ( Severe) Clinical Problem Chronic Disease or Condition Related Malnutrition Etiology severe, chronic malnutrition related to inadequate energy intake Signs/Symptoms as evidenced by estimated PO intake meeting <50% of estimated energy needs > 3 months; Severe muscle wasting/ fat loss evident per physical exam in orbital, clavicle, acromion and temporal areas; BMI 15.6 Status Active Problem Recommendation Dietitian Recommendations/Changes regular diet; ensure plus high protein 120mL 4x/day given evidence of malnutrition Lab / Micro Data 08/08/23 05:53 08/08/23 05:53 Labs: Laboratory Results - last 24 hr 08/07/23 07:45: Differential Comment SCANNED, Sodium 138, Potassium 4.0, Chloride 89 L, Carbon Dioxide > 45.0 H*, Anion Gap TNP, BUN 24 H, Creatinine 0.48 L, Estim Creat Clear Calc 29.75, Est GFR (MDRD) Af Amer 162, Est GFR (MDRD) Non-Af 134, BUN/Creatinine Ratio 50.3 H, Glucose 135 H, Calcium 9.4, Phosphorus 3.0, Magnesium 2.0, Total Bilirubin 0.40, AST 12 L, ALT 22, Alkaline Phosphatase 59, Total Protein 7.1, Albumin 3.3, Globulin 3.8, Albumin/Globulin Ratio 0.9 08/08/23 05:53: WBC 9.3, RBC 3.93 L, Hgb 11.4 L, Hct 37.9, MCV 96.4, MCH 29.0, MCHC 30.1 L, RDW Std Deviation 56.9 H, RDW Coeff of Jacinto 15.9 H, Plt Count 167, MPV 10.8, Immature Gran % (Auto) 0.300, Neut % (Auto) 87.3 H, Lymph % (Auto) 5.2 L, [place] % (Auto) 7.1, Eos % (Auto) 0.0, Baso % (Auto) 0.1, Absolute Neuts (auto) 8.1 H, Absolute Lymphs (auto) 0.48 L, Nucleated RBC % 0, Differential Comment SCANNED, Sodium 141, Potassium 4.3, Chloride 93 L, Carbon Dioxide > 45.0 H*, A nion Gap TNP, BUN 24 H, Creatinine 0.26 L, Estim Creat Clear Calc 29.75, Est GFR (MDRD) Af Amer 326, Est GFR (MDRD) Non-Af 269, BUN/Creatinine Ratio 92.0 H, Glucose 128 H, Calcium 9.4, Phosphorus 2.4 L, Magnesium 2.4 Micro: Microbiology 08/07/23 10:10 Sputum, Expectorated/Coughed Gram Stain - Final 08/07/23 10:10 Urine, Random Legionella Antigen - Final 08/07/23 10:10 Urine, Random Streptococcus pneumoniae Antigen (M - Final 08/06/23 23:15 Mucosa - Nasopharyngeal Respiratory Panel (PCR) - Final 08/06/23 19:53 Nasal Secretion SARS-CoV-2 & FLU Antigen (Rapid) - Final Physical Exam Narrative GENERAL: Cachectic and frail looking HEENT: Atraumatic; normocephalic EYES; Anicteric, Normal Conjunctiva NECK; supple, normal thyroid, RESPIRATORY: Diminished to auscultation CARDIOVASCULAR: Regular S1 S2, GI: soft, normoactive bowel sounds, : No Renal angle tenderness; EXTREMITIES: No edema, no clubbing, MUSCULOSKELETAL: no muscle wasting NEURO: Awake; no lateralizing signs. SKIN: No Rash PSYCH; Flat affect Assessment & Plan Assessment/Plan (1) COPD with acute exacerbation: PLAN: Plan Patient is a 78-year-old lady admitted with progressive shortness of breath 1. Acute on chronic hypercapnic with chronic hypoxic respiratory failure secondary to combination of COPD with acute exacerbation as well as suspected pneumonia -Pt required 6 L of O2 on presentation and pH is slightly acidotic with elevated pCO2 at >90; tachycardia and tachypnea with conversational dyspnea -Baseline oxygen requirement is has been 3.5 L at home. Admitted to regular nursing floor managed with broad-spectrum antibiotic therapy (amikacin as well as azithromycin) in addition to steroids and bronchodilator treatment with DuoNeb. Patient was enrolled in hospice but dissenrolled by [facility] prior to last admission. Pt is interested in re-enrolling but would like another Hospice provider 2. 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 Dietitian consultation placed on admission 3. History of pulmonary embolism -Eliquis discontinued at last hospitalization for severe anemia which since has resolved 4. Osteoporosis ? Patient is on alendronate with plans to resume on discharge 5. GERD ? On famotidine 6. Peripheral neuropathy ? Patient is on gabapentin 7. Depression/anxiety -Patient is on BuSpar as well as Celexa continue 8. Chronic nausea Patient is on Haldol as well as Zofran as needed 9. Restless leg syndrome -Continue ropinirole 10. Tobacco dependence ? Counseled on cessation, offered nicotine patch for tobacco cravings 11. DVT prophylaxis ? On enoxaparin 12. Acute encephalopathy ? Secondary to a combination of metabolic encephalopathy from hypercarbia as well as toxic encephalopathy from patient multiple psychotropic medications. Adjusted patient medications with decreasing the dose of Neurontin and discontinuation of trazodone at night as well as lorazepam. Time spent in the patient's overall evaluation,decision-making process, review of diagnostic data, adjustment of management, discussion with other providers, nursing nursing and ancillary staff involved in patient's care documentation, 50-minute Charges/Coding Visit Charges Inpatient E&M: 23366 Subs Hosp L3
[2023-08-08] MEDS: busPIRone 5 MG Tablet 10 MG PO ×2 (08:36→20:09)
[2023-08-08] MEDS: Famotidine 20 MG Tablet PO (08:36)
[2023-08-08] MEDS: Furosemide 40 MG Tablet PO (08:36)
[2023-08-08] MEDS: Loratadine 10 MG Tablet PO (08:37)
[2023-08-08] MEDS: guaiFENesin 1,200 MG Tablet 1200 MG PO ×2 (08:37→20:09)
[2023-08-08] MEDS: Aspirin E.C. 81 MG Tablet PO (08:37)
[2023-08-08] MEDS: Ferrous Sulfate 325 MG Tablet PO ×2 (08:37→17:07)
[2023-08-08] MEDS: Potassium Chloride Oral Tablet 20 MEQ PO (08:37)
[2023-08-08] MEDS: Enoxaparin 30 MG/0.3 ML Syringe SC (08:38)
[2023-08-08] MEDS: Gabapentin 300 MG Capsule PO (08:40)
[2023-08-08] MEDS: LORazepam 0.5 MG Tablet PO (08:40)
[2023-08-08] MEDS: Fluticasone 0.05% 1 SPRAY NASAL.SRY NASAL ×2 (08:44→20:05)
--- NOTE | 2023-08-08 13:52 | PCM.RX.CS ---
Consult Antibiotic Management Pharmacy has been consulted to manage selected antiobiotic: Other Type of Intervention Type of Consult: Follow-up Suspected Infection Suspected Infection: Other Prior Doses of Antibiotics Prior Doses of Antibiotics Received/Current Regimen: 08/07/23 @ 0012 08/08/23 @ 1234 Labs Labs: Sodium 141 mmol/L (136-145) 08/08/23 05:53 Potassium 4.3 mmol/L (3.5-5.1) 08/08/23 05:53 Chloride 93 mmol/L (98-107) L 08/08/23 05:53 Carbon Dioxide > 45.0 mmol/L (21.0-32.0) H* 08/08/23 05:53 Anion Gap TNP 08/08/23 05:53 BUN 24 mg/dL (7-18) H 08/08/23 05:53 Creatinine 0.26 mg/dL (0.55-1.02) L 08/08/23 05:53 Est GFR (MDRD) Af Amer 326 mL/min (>60) 08/08/23 05:53 Est GFR (MDRD) Non-Af 269 mL/min (>60) 08/08/23 05:53 BUN/Creatinine Ratio 92.0 RATIO (10-20) H 08/08/23 05:53 Glucose 128 mg/dL (74-106) H 08/08/23 05:53 Microbiology Microbiology: Microbiology 08/07/23 10:10 Sputum, Expectorated/Coughed Gram Stain - Final 08/07/23 10:10 Sputum, Expectorated/Coughed Respiratory Culture - Preliminary Gram negative laura 08/07/23 10:10 Urine, Random Legionella Antigen - Final 08/07/23 10:10 Urine, Random Streptococcus pneumoniae Antigen (M - Final 08/06/23 23:15 Mucosa - Nasopharyngeal Respiratory Panel (PCR) - Final 08/06/23 19:53 Nasal Secretion SARS-CoV-2 & FLU Antigen (Rapid) - Final Dosing Weight Weight used for dosin kg Estimated Creatinine Clearance Estimated Creatinine Clearance: 49 Goal Trough Goal Trough: Other Pharmacy Plan for Drug Dosing Pharmacy Plan for Drug Dosing: changed Amikacin to 600mg every 24 hours random level due 08/08/23 @ 2230 Pharmacy Service will continue to monitor and adjust dosing as required. Date/Time Labs Ordered Labs to be done on [date and time ordered]: 08/08/23 @ 0306
[2023-08-08] MEDS: Acetaminophen 325 MG Tablet 650 MG PO (15:30)
--- NOTE | 2023-08-08 16:35 | CASEMGMT ---
ELADIO DAWSON NOTE: Palliative: Call received from Rosanna @ [facility] in [place]. Pt is not an active patient with them. ZAIDA Skaggs, made aware and states will check w/pt's CM tomorrow to inquire what Palliative agency pt is active with. ELADIO DAWSON spoke w/Holden Mosley. Pt is active with them for SN only. They were notified PT/OT will be added. Order placed and sent to [place] via [employer]. [facility] Debbie Nicole. PH: [phone]. Monica BSN ELADIO DAWSON
[2023-08-08] MEDS: Gabapentin 100 MG Capsule PO (17:09)
[2023-08-08] MEDS: Senna/Docusate Sodium 1 Tablet 2 TABLET PO (20:09)
[2023-08-08] MEDS: Azithromycin 250 MG Tablet 500 MG PO (20:10)
[2023-08-08] MEDS: Pramipexole Di-HCl 0.25 MG Tablet PO (20:11)
[2023-08-08] MEDS: Citalopram 20 MG Tablet PO (20:11)
[2023-08-08] MEDS: Ensure Plus High Protein 120 ML LIQUID PO (20:15)
[2023-08-09] VITALS (11 sets, daily range): BP systolic 116–123; BP diastolic 67–80; PULSE 88–120; RESP 12–22; TEMP 36.2–36.8; O2SAT 93–100
[2023-08-09] MEDS: Ipratropium/Albuterol Sulfate 3 ML AMPUL.NEB INHALATION ×6 (00:46→22:59)
[2023-08-09 07:32] LABS: Absolute Lymphocyte Count 0.55 X10^3/uL (0.83-4.51); Absolute Neutrophil Count 6.4 X10^3/uL (2.0-7.7); Basophil# 0.01 X10^3/uL; Basophil% 0.1 % (0-1); Hematocrit 40.1 % (37-47); Hemoglobin 11.7 g/dL (12.0-15.0); Lymphocyte # 0.55 X10^3/ul (0.83-4.51); Lymphocyte % 7.6 % (19-41); Mean Corp Hgb Conc 29.2 g/dL (32-36); Mean Corpuscular Hgb 29.2 pg (27.0-32.0); Mean Platelet Vol. 11.1 fl (6.2-12.0); Monocyte# 0.35 X10^3/uL; Monocyte% 4.8 % (0-10); NRBC Flagged by Analyzer 0 % (0-5); Neutrophil # 6.36 X10^3/uL (2.7-7.7); Neutrophil % 87.4 % (47-70); POSITIVE DIFFERENTIAL YES; Platelet Count 180 K/mm3 (150-450); RBC Distribution Width CV 15.9 % (11.6-14.6); RBC Distribution Width SD 58.3 fl (35.1-43.9); Red Blood Count 4.01 M/mm3 (4.2-5.4); White Blood Count 7.3 K/mm3 (4.4-11.0)
[2023-08-09 07:38] LABS: Differential Indicated SCAN CRITERIA MET
[2023-08-09] MEDS: Ferrous Sulfate 325 MG Tablet PO (08:46)
[2023-08-09] MEDS: Loratadine 10 MG Tablet PO (08:46)
[2023-08-09] MEDS: Famotidine 20 MG Tablet PO (08:46)
[2023-08-09] MEDS: Potassium Chloride Oral Tablet 20 MEQ PO (08:47)
[2023-08-09] MEDS: Furosemide 40 MG Tablet PO (08:47)
[2023-08-09] MEDS: guaiFENesin 1,200 MG Tablet 1200 MG PO ×2 (08:47→21:30)
[2023-08-09] MEDS: Enoxaparin 30 MG/0.3 ML Syringe SC (08:47)
[2023-08-09] MEDS: Aspirin E.C. 81 MG Tablet PO (08:47)
[2023-08-09] MEDS: busPIRone 5 MG Tablet 10 MG PO (08:47)
[2023-08-09] MEDS: Fluticasone 0.05% 1 SPRAY NASAL.SRY NASAL (08:48)
[2023-08-09] MEDS: Gabapentin 100 MG Capsule PO (08:50)
[2023-08-09 08:55] LABS: BUN 31 mg/dL (7-18); BUN/Creat Ratio 134.2 RATIO (10-20); Calcium,Total 9.7 mg/dL (8.5-10.1); Carbon Dioxide > 45.0 mmol/L (21.0-32.0); Chloride 92 mmol/L (98-107); Creatinine, Serum 0.23 mg/dL (0.55-1.02); EST Glomerular Filtration Rate 310 mL/min (>60); Est Glom Filt Rate - Afr Amer 375 mL/min (>60); Estimated Creatinine Clearance 29.75 ml/min; Glucose 117 mg/dL (74-106); Potassium 4.2 mmol/L (3.5-5.1); Sodium Level 143 mmol/L (136-145)
[2023-08-09] MEDS: Meropenem 1 GM in 0.9% Normal Saline (100mL MB+) 100 ML IV ×2 (09:02→21:34)
--- NOTE | 2023-08-09 12:22 | PCM.PN.HOSP ---
Reason for Visit Reason for Visit: Diagnoses Pneumonia, unspecified organism (08/06/23) Chronic obstructive pulmonary disease with (acute) exacerbation (08/06/23) Acute respiratory failure with hypercapnia (08/06/23) Chronic respiratory failure with hypoxia (08/06/23) Chronic respiratory failure with hypercapnia (08/06/23) Subjective Subjective Seen still remains significantly lethargic with high PCO2. Subsequent adjustment made to her medication regimen with discontinuation of all potential psychotropic medication Objective Data Objective Data Vital Signs: Vital Signs Temp Pulse Resp BP Pulse Ox O2 Del Method O2 Flow Rate 97.5 F L 89 12 116/67 100 Nasal Cannula 3 08/09/23 08:44 08/09/23 08:44 08/09/23 08:44 08/09/23 08:44 08/09/23 08:44 08/09/23 08:44 08/09/23 08:44 Oxygen Flow Rate (L/min) 3 Oxygen Delivery Method Nasal Cannula Weight: 40 kg Body Mass Index (BMI) 15.6 Intake & Output: Intake and Output for Last 24 Hours 08/07/23 08/08/23 08/09/23 23:59 23:59 23:59 Intake Total 342.4 / 582.4 1392.4 / 1392.4 240 / 240 Output Total 550 / 850 800 / 800 150 / 150 Balance -207.6 / -267.6 592.4 / 592.4 90 / 90 Medical Nutrition Assessment Dietitian: Malnutrition Criteria Met Start: 08/07/23 10:10 Freq: Status: Active Protocol: Document 08/07/23 10:10 AG (Rec: 08/07/23 10:10 [id number]) Nutrition Malnutrition Evidence of Malnutrition Exists Yes Malnutrition (severe): Chronic Evidenced By Suboptimal Energy Intake ( Severe),Physical Changes ( Severe) Clinical Problem Chronic Disease or Condition Related Malnutrition Etiology severe, chronic malnutrition related to inadequate energy intake Signs/Symptoms as evidenced by estimated PO intake meeting <50% of estimated energy needs > 3 months; Severe muscle wasting/ fat loss evident per physical exam in orbital, clavicle, acromion and temporal areas; BMI 15.6 Status Active Problem Recommendation Dietitian Recommendations/Changes regular diet; ensure plus high protein 120mL 4x/day given evidence of malnutrition Lab / Micro Data 08/09/23 06:55 08/09/23 06:55 Labs: Laboratory Results - last 24 hr 08/08/23 22:30: Miscellaneous Test Cancelled 08/09/23 06:55: WBC 7.3, RBC 4.01 L, Hgb 11.7 L, Hct 40.1, MCV 100.0 H, MCH 29.2, MCHC 29.2 L, RDW Std Deviation 58.3 H, RDW Coeff of Jacinto 15.9 H, Plt Count 180, MPV 11.1, Immature Gran % (Auto) 0.100, Neut % (Auto) 87.4 H, Lymph % (Auto) 7.6 L, [place] % (Auto) 4.8, Eos % (Auto) 0.0, Baso % (Auto) 0.1, Absolute Neuts (auto) 6.4, Absolute Lymphs (auto) 0.55 L, Nucleated RBC % 0, Sodium 143, Potassium 4.2, Chloride 92 L, Carbon Dioxide > 45.0 H*, Anion Gap TNP, BUN 31 H, Creatinine 0.23 L, Estim Creat Clear Calc 29.75, Est GFR (MDRD) Af Amer 375, Est GFR (MDRD) Non-Af 310, BUN/Creatinine Ratio 134.2 H, Glucose 117 H, Calcium 9.7 Micro: Microbiology 08/07/23 10:10 Sputum, Expectorated/Coughed Gram Stain - Final 08/07/23 10:10 Sputum, Expectorated/Coughed Respiratory Culture - Final Stenotrophomonas maltophilia 08/06/23 20:16 Blood Culture (Wb) - Anticubital Left Blood Culture - Preliminary No growth in 48 hours. 08/06/23 20:21 Blood Culture (Wb) - Right Wrist Blood Culture - Preliminary No growth in 48 hours. 08/07/23 10:10 Urine, Random Legionella Antigen - Final 08/07/23 10:10 Urine, Random Streptococcus pneumoniae Antigen (M - Final 08/06/23 23:15 Mucosa - Nasopharyngeal Respiratory Panel (PCR) - Final 08/06/23 19:53 Nasal Secretion SARS-CoV-2 & FLU Antigen (Rapid) - Final Physical Exam Narrative GENERAL: Cachectic and frail looking HEENT: Atraumatic; normocephalic EYES; Anicteric, Normal Conjunctiva NECK; supple, normal thyroid, RESPIRATORY: Diminished to auscultation CARDIOVASCULAR: Regular S1 S2, GI: soft, normoactive bowel sounds, : No Renal angle tenderness; EXTREMITIES: No edema, no clubbing, MUSCULOSKELETAL: no muscle wasting NEURO: Awake; no lateralizing signs. SKIN: No Rash PSYCH; Flat affect Assessment & Plan Assessment/Plan (1) COPD with acute exacerbation: PLAN: Plan Patient is a 78-year-old lady admitted with progressive shortness of breath 1. Acute on chronic hypercapnic with chronic hypoxic respiratory failure secondary to combination of COPD with acute exacerbation as well as suspected pneumonia -Pt required 6 L of O2 on presentation and pH is slightly acidotic with elevated pCO2 at >90; tachycardia and tachypnea with conversational dyspnea -Baseline oxygen requirement is has been 3.5 L at home. Admitted to regular nursing floor managed with broad-spectrum antibiotic therapy (amikacin as well as azithromycin) in addition to steroids and bronchodilator treatment with DuoNeb. Patient was enrolled in hospice but dissenrolled by [facility] prior to last admission. Pt is interested in re-enrolling but would like another Hospice provider 2. 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 Dietitian consultation placed on admission 3. History of pulmonary embolism -Eliquis discontinued at last hospitalization for severe anemia which since has resolved 4. Osteoporosis ? Patient is on alendronate with plans to resume on discharge 5. GERD ? On famotidine 6. Peripheral neuropathy ? Patient is on gabapentin 7. Depression/anxiety -Patient is on BuSpar as well as Celexa continue 8. Chronic nausea Patient is on Haldol as well as Zofran as needed 9. Restless leg syndrome -Continue ropinirole 10. Tobacco dependence ? Counseled on cessation, offered nicotine patch for tobacco cravings 11. DVT prophylaxis ? On enoxaparin 12. Acute encephalopathy ? Secondary to a combination of metabolic encephalopathy from hypercarbia as well as toxic encephalopathy from patient multiple psychotropic medications. Adjusted patient medications with decreasing the dose of Neurontin and discontinuation of trazodone at night as well as lorazepam. ? 08/09/2023; patient still remains significantly lethargic discontinued all potential psychotropic medications Time spent in the patient's overall evaluation,decision-making process, review of diagnostic data, adjustment of management, discussion with other providers, nursing nursing and ancillary staff involved in patient's care documentation,40 -minute Charges/Coding Visit Charges Inpatient E&M: 78518 Subs Hosp L2
[2023-08-09] MEDS: Acetaminophen 325 MG Tablet 650 MG PO ×2 (14:47→21:01)
--- NOTE | 2023-08-09 15:30 | CASEMGMT ---
RN CM in to discuss needs with patient and son for at discharge. Patient states she would benefit from hospital bed at discharge. RN CM explained that hospital bed may take a few days to be delivered to patient's home, patient and son voiced understanding. Patient and son state they prefer [facility], as that is who her oxygen is through. Patient son agreeable to resumption of HHC. Patient and son denied further needs. ELADIO CM to assist with hospital bed setup at [facility]. CM will continue to follow this patient and plan for a safe discharge.
[2023-08-09] MEDS: Ondansetron 4 MG/2 ML Vial IV (20:49)
[2023-08-09] MEDS: 0.9% Saline Lock 10 ML Syringe IV ×2 (20:50→21:32)
[2023-08-09] MEDS: Senna/Docusate Sodium 1 Tablet 2 TABLET PO (21:29)
[2023-08-09] MEDS: Citalopram 20 MG Tablet PO (21:30)
[2023-08-09] MEDS: Azithromycin 250 MG Tablet 500 MG PO (21:30)
[2023-08-10] VITALS (9 sets, daily range): BP systolic 114–133; BP diastolic 73–83; PULSE 101–110; RESP 17–20; TEMP 36.4–36.6; O2SAT 91–100
[2023-08-10] MEDS: Ipratropium/Albuterol Sulfate 3 ML AMPUL.NEB INHALATION ×4 (02:12→15:10)
[2023-08-10] MEDS: Acetaminophen 325 MG Tablet 650 MG PO ×2 (03:02→14:23)
[2023-08-10] MEDS: Aspirin E.C. 81 MG Tablet PO (08:42)
[2023-08-10] MEDS: Ferrous Sulfate 325 MG Tablet PO ×2 (08:42→16:31)
[2023-08-10] MEDS: guaiFENesin 1,200 MG Tablet 1200 MG PO (08:43)
[2023-08-10] MEDS: Famotidine 20 MG Tablet PO (08:43)
[2023-08-10] MEDS: Potassium Chloride Oral Tablet 20 MEQ PO (08:43)
[2023-08-10] MEDS: Furosemide 40 MG Tablet PO (08:44)
[2023-08-10] MEDS: Loratadine 10 MG Tablet PO (08:44)
[2023-08-10] MEDS: predniSONE 20 MG Tablet 40 MG PO ×2 (08:45→16:31)
[2023-08-10] MEDS: Enoxaparin 30 MG/0.3 ML Syringe SC (08:45)
[2023-08-10] MEDS: Meropenem 1 GM in 0.9% Normal Saline (100mL MB+) 100 ML IV (08:46)
[2023-08-10] MEDS: Fluticasone 0.05% 1 SPRAY NASAL.SRY NASAL (08:46)
[2023-08-10] MEDS: Menthol/Lanolin/Calamine/Znox 113 GM Tube 1 APPLIC TOPICAL (08:49)
[2023-08-10 09:38] LABS: Absolute Lymphocyte Count 1.19 X10^3/uL (0.83-4.51); Absolute Neutrophil Count 5.7 X10^3/uL (2.0-7.7); Basophil# 0.02 X10^3/uL; Basophil% 0.3 % (0-1); Eosinophil# 0.04 X10^3/uL; Eosinophils% 0.5 % (0-5); Hematocrit 40.9 % (37-47); Hemoglobin 11.8 g/dL (12.0-15.0); Lymphocyte # 1.19 X10^3/ul (0.83-4.51); Lymphocyte % 15.6 % (19-41); Mean Corp Hgb Conc 28.9 g/dL (32-36); Mean Corpuscular Hgb 28.4 pg (27.0-32.0); Mean Corpuscular Volume 98.3 fL (81-99); Mean Platelet Vol. 10.5 fl (6.2-12.0); Monocyte# 0.68 X10^3/uL; Monocyte% 8.9 % (0-10); NRBC Flagged by Analyzer 0 % (0-5); Neutrophil # 5.67 X10^3/uL (2.7-7.7); Neutrophil % 74.4 % (47-70); Platelet Count 195 K/mm3 (150-450); RBC Distribution Width CV 15.9 % (11.6-14.6); Red Blood Count 4.16 M/mm3 (4.2-5.4); White Blood Count 7.6 K/mm3 (4.4-11.0)
[2023-08-10 10:08] LABS: BUN 29 mg/dL (7-18); BUN/Creat Ratio 94.5 RATIO (10-20); Calcium,Total 9.3 mg/dL (8.5-10.1); Carbon Dioxide > 45.0 mmol/L (21.0-32.0); Chloride 94 mmol/L (98-107); Creatinine, Serum 0.31 mg/dL (0.55-1.02); EST Glomerular Filtration Rate 223 mL/min (>60); Est Glom Filt Rate - Afr Amer 270 mL/min (>60); Estimated Creatinine Clearance 29.75 ml/min; Glucose 97 mg/dL (74-106); Potassium 4.2 mmol/L (3.5-5.1); Sodium Level 140 mmol/L (136-145)
--- NOTE | 2023-08-10 10:15 | PCM.DC.SUM ---
Providers Date of Admission: 08/06/23 Date of Discharge: 08/10/23 Primary Care Physician: EMMA DILLON Reason For Visit: ACUTE ON CHRONIC HYPOXIC & HYPERCAPNIC RESP FAILUR Diagnosis Discharge Diagnosis (1) COPD with acute exacerbation: Status: Chronic Code(s): J44.1 - Chronic obstructive pulmonary disease with (acute) exacerbation Plan Patient is a 78-year-old lady admitted with progressive shortness of breath 1. Acute on chronic hypercapnic with chronic hypoxic respiratory failure secondary to combination of COPD with acute exacerbation as well as suspected pneumonia -Pt required 6 L of O2 on presentation and pH is slightly acidotic with elevated pCO2 at >90; tachycardia and tachypnea with conversational dyspnea -Baseline oxygen requirement is has been 3.5 L at home. Admitted to regular nursing floor managed with broad-spectrum antibiotic therapy (amikacin as well as azithromycin) in addition to steroids and bronchodilator treatment with DuoNeb. Patient was enrolled in hospice but dissenrolled by [facility] prior to last admission. Pt is interested in re-enrolling but would like another Hospice provider ? Patient cultures grew stenotrophomonas maltophilia. Patient was discharged on Bactrim based on sensitivities 2. 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 Dietitian consultation placed on admission 3. History of pulmonary embolism -Eliquis discontinued at last hospitalization for severe anemia which since has resolved 4. Osteoporosis ? Patient is on alendronate with plans to resume on discharge 5. GERD ? On famotidine 6. Peripheral neuropathy ? Patient is on gabapentin 7. Depression/anxiety -Patient is on BuSpar as well as Celexa continue 8. Chronic nausea Patient is on Haldol as well as Zofran as needed 9. Restless leg syndrome -Continue ropinirole 10. Tobacco dependence ? Counseled on cessation, offered nicotine patch for tobacco cravings 11. DVT prophylaxis ? On enoxaparin 12. Acute encephalopathy ? Secondary to a combination of metabolic encephalopathy from hypercarbia as well as toxic encephalopathy from patient multiple psychotropic medications. Adjusted patient medications with decreasing the dose of Neurontin and discontinuation of trazodone at night as well as lorazepam. ? 08/09/2023; patient still remains significantly lethargic discontinued all potential psychotropic medications ? 08/10/2023 acute encephalopathy resolved 13. Physical deconditioning - Requested for PT OT eval and high school social studies teacher to assist with discharge planning. Patient was discharged home with a hospital bed patient will require hospital bed due to needing frequent changes in position to alleviate pain and prevent ongoing pressure areas assist in healing of current pressure areas and prevent aspiration this is due to patient advanced COPD with significant hypoxia Time spent in the patient's overall evaluation,decision-making process, review of diagnostic data, adjustment of management, discussion with other providers, nursing nursing and ancillary staff involved in patient's care documentation,40 -minute Medications at Discharge Home Medications furosemide 40 mg tablet 40 mg PO DAILY diuretic 09/19/16 famotidine 40 mg tablet 40 mg PO DAILY GERD 10/24/18 albuterol sulfate 1.25 mg/3 mL solution for nebulization 1.25 mg inhalation Q4H sob 04/04/21 citalopram 20 mg tablet 20 mg PO QHS mood 04/04/21 cyanocobalamin (vitamin B-12) 2,000 mcg tablet,extended release (Vitamin B-12 ER) 2,000 mcg PO DAILY supplement 04/04/21 fluticasone furoate 200 mcg-vilanterol 25 mcg/dose inhalation powder (Breo Ellipta) 1 inh inhalation BID copd 04/04/21 loratadine 10 mg tablet 10 mg PO DAILY allergies 04/04/21 kfftflpdjwdb-hmiypflm-ocmkpr tablet 1 tab PO DAILY supplement 04/04/21 potassium chloride 20 mEq tablet,extended release(part/cryst) 20 meq PO DAILY supplement 04/04/21 umeclidinium 62.5 mcg/actuation blister powder for inhalation (Incruse Ellipta) 1 inh inhalation DAILY copd 04/04/21 aspirin 81 mg tablet,delayed release 81 mg PO DAILY heart health 04/20/21 benzonatate 100 mg capsule 100 mg PO BID PRN cough 05/13/23 ferrous sulfate 325 mg (65 mg iron) tablet (FeroSul) 325 mg PO BID Iron Supplement 05/15/23 fluticasone propionate 50 mcg/actuation nasal spray,suspension 1 spray intranasal BID Allergies 05/15/23 haloperidol 1 mg tablet 1 mg PO Q4H PRN nausea and vomiting 05/15/23 morphine concentrate 100 mg/5 mL (20 mg/mL) oral solution 5 mg PO Q6H PRN pain or dyspnea 05/15/23 promethazine 25 mg tablet 25 mg PO Q6H PRN nausea and vomiting 05/15/23 sennosides 8.6 mg-docusate sodium 50 mg tablet (2-in-1 Laxative) 2 tab-cap PO QHS stool softener 05/15/23 ipratropium 0.5 mg-albuterol 3 mg (2.5 mg base)/3 mL nebulization soln 3 ml inhalation Q4HWA.RT 14 days #180 mL 05/21/23 guaifenesin 1,200 mg tablet, extended release 12 hr (Mucus Relief ER) 1,200 mg PO BID #14 tabs 08/10/23 prednisone 20 mg tablet 40 mg (2 x 20 mg) PO DAILY 7 days #14 tabs 08/10/23 sulfamethoxazole 800 mg-trimethoprim 160 mg tablet (Bactrim DS) 1 tab PO BID #14 tabs 08/10/23 Physical Exam Narrative GENERAL: Cachectic and frail looking HEENT: Atraumatic; normocephalic EYES; Anicteric, Normal Conjunctiva NECK; supple, normal thyroid, RESPIRATORY: Diminished to auscultation CARDIOVASCULAR: Regular S1 S2, GI: soft, normoactive bowel sounds, : No Renal angle tenderness; EXTREMITIES: No edema, no clubbing, MUSCULOSKELETAL: no muscle wasting NEURO: Awake; no lateralizing signs. SKIN: No Rash PSYCH; Flat affect Medical Records Data Medical Nutrition Assessment Dietitian: Malnutrition Criteria Met Start: 08/07/23 10:10 Freq: Status: Active Protocol: Document 08/07/23 10:10 AG (Rec: 08/07/23 10:10 [id number]) Nutrition Malnutrition Evidence of Malnutrition Exists Yes Malnutrition (severe): Chronic Evidenced By Suboptimal Energy Intake ( Severe),Physical Changes ( Severe) Clinical Problem Chronic Disease or Condition Related Malnutrition Etiology severe, chronic malnutrition related to inadequate energy intake Signs/Symptoms as evidenced by estimated PO intake meeting <50% of estimated energy needs > 3 months; Severe muscle wasting/ fat loss evident per physical exam in orbital, clavicle, acromion and temporal areas; BMI 15.6 Status Active Problem Recommendation Dietitian Recommendations/Changes regular diet; ensure plus high protein 120mL 4x/day given evidence of malnutrition Weight / BMI Weight Weight: 40 kg Body Mass Index (BMI) 15.6 ABG / Lab / Microbiology Data 08/10/23 08:46 08/10/23 08:46 Laboratory: Laboratory Results - last 24 hr 08/10/23 08:46: WBC 7.6, RBC 4.16 L, Hgb 11.8 L, Hct 40.9, MCV 98.3, MCH 28.4, MCHC 28.9 L, RDW Std Deviation 57.0 H, RDW Coeff of Jacinto 15.9 H, Plt Count 195, MPV 10.5, Immature Gran % (Auto) 0.300, Neut % (Auto) 74.4 H, Lymph % (Auto) 15.6 L, [place] % (Auto) 8.9, Eos % (Auto) 0.5, Baso % (Auto) 0.3, Absolute Neuts (auto) 5.7, Absolute Lymphs (auto) 1.19, Nucleated RBC % 0, Sodium 140, Potassium 4.2, Chloride 94 L, Carbon Dioxide > 45.0 H*, Anion Gap TNP, BUN 29 H, Creatinine 0.31 L, Estim Creat Clear Calc 29.75, Est GFR (MDRD) Af Amer 270, Est GFR (MDRD) Non-Af 223, BUN/Creatinine Ratio 94.5 H, Glucose 97, Calcium 9.3 Microbiology: Microbiology 08/07/23 10:10 Sputum, Expectorated/Coughed Gram Stain - Final 08/07/23 10:10 Sputum, Expectorated/Coughed Respiratory Culture - Final Stenotrophomonas maltophilia 08/06/23 20:16 Blood Culture (Wb) - Anticubital Left Blood Culture - Preliminary No growth in 48 hours. 08/06/23 20:21 Blood Culture (Wb) - Right Wrist Blood Culture - Preliminary No growth in 48 hours. 08/07/23 10:10 Urine, Random Legionella Antigen - Final 08/07/23 10:10 Urine, Random Streptococcus pneumoniae Antigen (M - Final 08/06/23 23:15 Mucosa - Nasopharyngeal Respiratory Panel (PCR) - Final 08/06/23 19:53 Nasal Secretion SARS-CoV-2 & FLU Antigen (Rapid) - Final D/C Instructions Discharge Diet: No restrictions Discharge Activity: Return to Normal Activity Call your doctor if you observe: Fever of 101 or Higher, Shortness of breath, Fainting spells and Chest pain Meaningful Use Info Meaningful Use Diagnoses (Choose all that apply): None applicable Discharge Plan Admission Admit Date/Time: 08/06/23 20:40 Attending Provider: Mike Jarquin Primary Care Provider: EMMA DILLON Consulting Providers: Essence Anne Discharge Orders/Prescriptions Prescriptions: New prednisone 20 mg Tablet 40 mg PO DAILY 7 Days Qty: 14 0RF guaifenesin [Mucus Relief ER] 1,200 mg Tablet Extended Release 12hr 1,200 mg PO BID Qty: 14 0RF sulfamethoxazole-trimethoprim [Bactrim DS] 800-160 mg tablet 1 tab PO BID Qty: 14 0RF Continued furosemide 40 MG tablet 40 mg PO DAILY Patient Comments: water pill famotidine 40 tablet 40 mg PO DAILY Incruse Ellipta 62.5 mcg/actuation blister with device 1 inh INHALATION DAILY [id number]-fetlchzc-mrotng Tablet 1 tab PO DAILY albuterol sulfate 1.25 mg/3 mL Solution For Nebulization 1.25 mg INHALATION Q4H citalopram 20 mg tablet 20 mg PO QHS potassium chloride 20 mEq tablet,ER particles/crystals 20 meq PO DAILY cyanocobalamin (vitamin B-12) [Vitamin B-12] 2,000 mcg Tablet Extended Release 2,000 mcg PO DAILY loratadine 10 mg Tablet 10 mg PO DAILY fluticasone furoate-vilanterol [Breo Ellipta] 200-25 mcg/dose blister with device 1 inh INHALATION BID aspirin 81 mg Tablet,Delayed Release (Dr/Ec) 81 mg PO DAILY benzonatate 100 mg capsule 100 mg PO BID PRN (Reason: cough) Patient Comments: TAKE 1 CAPSULE EVERY 12 HOURS NEEDED FOR COUGH ferrous sulfate [FeroSul] 325 mg (65 mg iron) tablet 325 mg PO BID fluticasone propionate 50 mcg/actuation spray,suspension 1 spray INTRANASAL BID haloperidol 1 mg tablet 1 mg PO Q4H PRN (Reason: nausea and vomiting) morphine concentrate 100 mg/5 mL (20 mg/mL) solution 5 mg PO Q6H PRN (Reason: pain or dyspnea) promethazine 25 mg tablet 25 mg PO Q6H PRN (Reason: nausea and vomiting) sennosides-docusate sodium [2-in-1 Laxative] 8.6-50 mg tablet 2 tab-cap PO QHS ipratropium-albuterol 0.5 mg-3 mg(2.5 mg base)/3 mL Solution For Nebulization 3 ml inhalation Q4HWA.RT 14 Days Qty: 180 0RF Discontinued gabapentin 300 MG capsule 300 mg PO BIDCM Patient Comments: pinched nerves ropinirole 0.5 MG tablet 0.5 mg PO QHS Patient Comments: restless legs lorazepam [Ativan] 0.5 mg tablet 0.5 mg PO BID buspirone 10 mg tablet 10 mg PO BID trazodone 50 mg tablet 50 mg PO QHS prednisone 20 mg Tablet See Taper PO BREAKFAST Qty: 32 0RF Taper: Prednisone Taper 60 mg WITH BREAKFAST for 3 Days and 0 Hour 50 mg WITH BREAKFAST for 3 Days and 0 Hour 40 mg WITH BREAKFAST for 3 Days and 0 Hour 30 mg WITH BREAKFAST for 3 Days and 0 Hour 20 mg WITH BREAKFAST for 3 Days and 0 Hour 10 mg WITH BREAKFAST for 3 Days and 0 Hour lorazepam 0.5 mg tablet 0.5 mg PO BID 3 Days Qty: 6 0RF Referrals / Follow Up: Shayne Winter Chi, MD [Med Staff - Active Staff] - Disposition Disposition (needs filled in before D/C Order can be placed): Home Health Service Charges/Coding Visit Charges Inpatient E&M: 74555 Disch Hosp >30min
--- NOTE | 2023-08-10 10:56 | CASEMGMT ---
RN SAMIR received script for hospital bed. ELADIO DAWSON sent referral to [facility] via [facility].
--- NOTE | 2023-08-10 14:38 | NURSING ---
Called and left voicemail to son annabelle to return call in regards to update on discharge
== END 2023-08-10 19:00 | disposition home health service (06) | DRG 177 ==
LOC: ED 20:27 → PCU 21:01
PROVIDERS: Admitting Provider Internal Medicine; Emergency Provider Emergency Medicine; Visit Provider Internal Medicine
DX: J15.69 Pneumonia due to other Gram-negative bacteria (principal); J96.22 Acute and chronic respiratory failure with hypercapnia; G92.8 Other toxic encephalopathy; E43 Unspecified severe protein-calorie malnutrition; R64 Cachexia; J96.11 Chronic respiratory failure with hypoxia; J44.0 Chronic obstructive pulmonary disease with (acute) lower respiratory infection; J44.1 Chronic obstructive pulmonary disease with (acute) exacerbation; Z68.1 Body mass index [BMI] 19.9 or less, adult; Z99.81 Dependence on supplemental oxygen; F32.A Depression, unspecified; G25.81 Restless legs syndrome; K21.9 Gastro-esophageal reflux disease without esophagitis; G62.9 Polyneuropathy, unspecified; E78.00 Pure hypercholesterolemia, unspecified; F41.9 Anxiety disorder, unspecified; F17.210 Nicotine dependence, cigarettes, uncomplicated; T43.95XA Adverse effect of unspecified psychotropic drug, initial encounter; M81.0 Age-related osteoporosis without current pathological fracture; Z66 Do not resuscitate; Z79.82 Long term (current) use of aspirin; Z79.51 Long term (current) use of inhaled steroids; Z88.1 Allergy status to other antibiotic agents; Z88.0 Allergy status to penicillin
CPT/HCPCS: 36415; 36600; 71045; 80048; 80053; 82803; 83605; 83735; 84100; 85025; 87040; 87070; 87077; 87186; 87205; 87428; 87449; 87633; 87641; 87804; 93005; 94640; 94762; 97110; 97162; 97166; 97530; 97535; 97802; 99252; 99285; J2185; J7030; A4216; G0463; J0278; J2405

== ENCOUNTER 2023-08-19 12:56 | Inpatient (IN) | payer MEDICARE, MEDICAID, SELFPAY ==
[2023-08-19] VITALS (14 sets, daily range): BP systolic 113–122; BP diastolic 66–83; PULSE 107–119; RESP 20–26; TEMP 36.4–36.6; O2SAT 83–97; BMI 18.0; BMI 15.8
--- NOTE | 2023-08-19 13:27 | ED.RN ---
spoke with granddaughter Debbie for pt update
--- NOTE | 2023-08-19 13:32 | EDS_ITS ---
HPI History of Present Illness Chief Complaint: Shortness of Breath Informant: patient Onset/Context/Timing Onset: Days Context: gradual Timing: Continuous Quality: Positive for Dyspnea on exertion Worsened by: Nothing Relieved by: Nothing Associated Symptoms cough and white sputum; Negative for rhinorrhea, post nasal drip, ear pain, fever, sore throat, chills, sweats, clear sputum, yellow sputum or green sputum Chest Pain: Positive for None Narrative Narrative: Patient presents with shortness of breath that has been getting worse over the past several days. Patient states that his gradually getting worse. Patient admits to a cough with some white and michael sputum. Patient denies any fevers or chills. Patient denies any chest pain. Patient states nothing makes her breathing better nothing makes it worse. Patient has a history of COPD and was recently admitted to the hospital for COPD exacerbation. Patient is currently on prednisone. PE Risk Factors: Positive for Prior DVT or PE and Recent immobilization; Negative for Cancer, Recent surgery or Recent travel PFSH PFSH Medical History Anxiety Bleeding disorder cataracts COPD (chronic obstructive pulmonary disease) Gout High cholesterol Hx of gallstones Migraines Neuropathy On home O2 Osteoarthritis Osteoporosis Sleep apnea Smoker Home Medications furosemide 40 mg tablet 40 mg PO DAILY diuretic 09/19/16 [History Last Taken 08/18/23] famotidine 40 mg tablet 40 mg PO DAILY GERD 10/24/18 [History Last Taken 08/18/23] albuterol sulfate 1.25 mg/3 mL solution for nebulization 1.25 mg inhalation Q4H sob 04/04/21 [History Last Taken 04/03/21] citalopram 20 mg tablet 20 mg PO QHS mood 04/04/21 [History Last Taken 08/18/23] fluticasone furoate 200 mcg-vilanterol 25 mcg/dose inhalation powder (Breo Ellipta) 1 inh inhalation BID copd 04/04/21 [History Last Taken 08/18/23] loratadine 10 mg tablet 10 mg PO DAILY allergies 04/04/21 [History Last Taken 08/18/23] qzsqcrqvesas-qdviobzv-ubaxcg tablet 1 tab PO DAILY supplement 04/04/21 [History Last Taken 08/18/23] potassium chloride 20 mEq tablet,extended release(part/cryst) 20 meq PO DAILY supplement 04/04/21 [History Last Taken 08/18/23] aspirin 81 mg tablet,delayed release 81 mg PO DAILY heart health 04/20/21 [History Last Taken 08/18/23] ferrous sulfate 325 mg (65 mg iron) tablet (FeroSul) 325 mg PO BID Iron Supplement 05/15/23 [History Last Taken 08/18/23] fluticasone propionate 50 mcg/actuation nasal spray,suspension 1 spray intranasal BID Allergies 05/15/23 [History Last Taken 08/18/23] sennosides 8.6 mg-docusate sodium 50 mg tablet (2-in-1 Laxative) 2 tab-cap PO QHS stool softener 05/15/23 [History Last Taken 08/18/23] ipratropium 0.5 mg-albuterol 3 mg (2.5 mg base)/3 mL nebulization soln 3 ml inhalation Q4HWA.RT 14 days #180 mL 05/21/23 [Rx Last Taken Unknown] gabapentin 300 mg capsule 300 mg PO Q12H 08/19/23 [History Last Taken 08/18/23] lorazepam 0.5 mg tablet 0.5 mg PO Q12H PRN anxiety 08/19/23 [History Last Taken Unknown] omeprazole 20 mg capsule,delayed release 20 mg PO DAILY 08/19/23 [History Last Taken 08/18/23] ropinirole 0.5 mg tablet 0.5 mg PO DAILY 08/19/23 [History Last Taken 08/18/23] tiotropium bromide 2.5 mcg/actuation mist for inhalation (Spiriva Respimat) 2 inh inhalation Q24H 08/19/23 [History Last Taken 08/18/23] trazodone 50 mg tablet 50 mg PO DAILY 08/19/23 [History Last Taken 08/18/23] Allergy/AdvReac Type Severity Reaction Status Date / Time bupropion HCl Allergy Anaphylaxis Verified 08/19/23 12:57 [From Wellbutrin] cephalexin monohydrate Allergy Anaphylaxis Verified 08/19/23 12:57 [From Keflex] levofloxacin Allergy Anaphylaxis Verified 08/19/23 12:57 Penicillins [PCN] Allergy Anaphylaxis Verified 08/19/23 12:57 Milk Containing Products AdvReac phlegm Verified 08/19/23 12:57 (Dairy) [Milk Containing Products] Family History Father Colon cancer Heart disease Surgical History History of appendectomy History of cholecystectomy History of hysterectomy History of incisional hernia repair Status post hip surgery Social History Smoking Status: Current some day smoker tobacco type: cigarettes alcohol intake: never substance use type: does not use ROS ROS ED Constitutional Constitutional ED: Denies chills or fever(s) Eyes Eyes: Denies blurry vision or change in vision ENT ENT ED: Denies rhinorrhea or sore throat Cardiovascular Cardiovascular: Denies chest pain or palpitations Respiratory/Chest Respiratory/Chest: Reports cough and dyspnea Gastrointestinal Gastrointestinal: Denies nausea or vomiting Genitourinary Genitourinary ED: Denies dysuria or hematuria Musculoskeletal Musculoskeletal: Denies back pain or neck pain Integumentary Denies abscess or rash Neurologic Neurologic: Denies headache(s) or weakness Allergic/Immunologic Allergic/Immunologic ED: Denies mouth swelling or urticaria EXAM Physical Exam Const Vital Signs: 08/19/23 13:00 08/19/23 13:06 08/19/23 13:59 Temperature 97.9 F Temperature Source Temporal Pulse Rate 116 H Respiratory Rate 20 H Respiratory Effort Short of Breath Respiratory Depth Deep Respiratory Pattern Normal Blood Pressure 113/80 Blood Pressure Mean 91 Pulse Ox 97 Oxygen Delivery Method Nasal Cannula Nasal Cannula Nasal Cannula Oxygen Flow Rate (L/min) 4 3 3 Fraction of Inspired Oxygen (FIO2) 08/19/23 14:03 08/19/23 14:12 08/19/23 14:30 Temperature Temperature Source Pulse Rate 107 H 112 H Respiratory Rate 20 H 22 H Respiratory Effort Respiratory Depth Respiratory Pattern Normal Blood Pressure Blood Pressure Mean Pulse Ox 94 Oxygen Delivery Method Nasal Cannula Nasal Cannula Oxygen Flow Rate (L/min) 3 2 Fraction of Inspired Oxygen (FIO2) 08/19/23 15:06 08/19/23 15:16 08/19/23 15:00 Temperature Temperature Source Pulse Rate 119 H 116 H Respiratory Rate 22 H 22 H Respiratory Effort Respiratory Depth Respiratory Pattern Blood Pressure 119/83 H 119/83 H Blood Pressure Mean 95 95 Pulse Ox 87 87 83 Oxygen Delivery Method Nasal Cannula Venturi Mask Venturi Mask Oxygen Flow Rate (L/min) 5 8 8 Fraction of Inspired Oxygen (FIO2) 40 40 08/19/23 16:00 08/19/23 16:54 Temperature 97.6 F L Temperature Source Pulse Rate 117 H 115 H Respiratory Rate 25 H 25 H Respiratory Effort Respiratory Depth Respiratory Pattern Blood Pressure 113/81 H 113/81 H Blood Pressure Mean 91 91 Pulse Ox 83 85 Oxygen Delivery Method Venturi Mask Oxygen Flow Rate (L/min) 8 Fraction of Inspired Oxygen (FIO2) 40 Positive well nourished and well developed General Appearance ED: well developed and NAD HEENT Reports moist mucous membranes Neck supple, no meningeal signs and no JVD Resp Auscultation: rhonchi throughout Cardio regular rhythm Rate: tachycardic GI non-tender and non-distended Palpation: soft Neuro CN's II-XII intact bilaterally and no sensory deficits noted [place] Coma Scale: document GCS findings To Voice Obeys Commands Oriented 14 Sensorium / Orientation: alert Motor Exam: general weakness Psych mental status grossly normal MDM MDM MDM Narrative Medical decision making narrative: Differential diagnosis includes pneumonia, COPD exacerbation, reactive airway disease, pneumothorax, congestive heart failure, pulmonary embolism, and viral infection. CBC will be obtained to assess for leukocytosis and anemia. D-dimer will be obtained to assess for pulmonary embolism. Basic metabolic profile will be obtained to assess for electrolyte abnormality and renal function. Serum lactate will be obtained to assess for sepsis. BNP will be obtained to assess for congestive heart failure. High-sensitivity troponin will be obtained to assess for cardiac ischemia. History & Record Review Discussion w/independent historian: Patient and Family Lab Data Attestation: I reviewed the patient's lab results. Lab results narrative: CBC was reviewed. There is leukocytosis of 25.2. Hemoglobin was slightly low at 11.9. Platelets were normal. D-dimer was reviewed and was 0.53. This is normal for patient's age. Basic metabolic profile was reviewed. BUN was slightly elevated at 42 and creatinine was 0.48. CO2 was slightly elevated at 42 however this is consistent with prior results. Serum lactate was reviewed and was normal at 1.0. High-sensitivity troponin was reviewed and was normal at 10. BNP was reviewed and was normal at 60. Arterial blood gas reviewed. pCO2 was 84.9, pO2 was 57, bicarb was 49.3, and oxygen saturation was 86% on 3 L nasal cannula. Labs: Laboratory Results - last 24 hr 08/19/23 14:47 WBC 25.2 H RBC 4.15 L Hgb 11.9 L Hct 39.1 MCV 94.2 MCH 28.7 MCHC 30.4 L RDW Std Deviation 54.4 H RDW Coeff of Jacinto 15.7 H Plt Count 411 MPV 10.6 Immature Gran % (Auto) 0.600 Neut % (Auto) 89.8 H Lymph % (Auto) 3.1 L [place] % (Auto) 6.1 Eos % (Auto) 0.0 Baso % (Auto) 0.4 Absolute Neuts (auto) 22.6 H Absolute Lymphs (auto) 0.79 L Nucleated RBC % 0 Differential Comment COMMENT Diff Path Review May foll D-Dimer Quant (PE/DVT) 0.53 H* Sodium 139 Potassium 4.0 Chloride 94 L Carbon Dioxide 42.0 H Anion Gap 3 L BUN 42 H Creatinine 0.48 L Estim Creat Clear Calc 31.16 Est GFR (MDRD) Af Amer 162 Est GFR (MDRD) Non-Af 134 BUN/Creatinine Ratio 88.1 H Glucose 123 H Lactic Acid 1.0 Calcium 9.6 Troponin I High Sens 10 B-Natriuretic Peptide 60.0 ABG Data ABG results: ABG 08/19/23 14:14 Specimen Type ART Sample Site R Radial pH 7.37 Bicarbonate Actual 49.3 H Total CO2 > 50 Base Excess 24 H O2 Saturation 86 L O2 % 3.5 ABG pCO2 84.9 H* ABG pO2 57 L O2 Delivery Device Cannula Vent Mode Not entered Crit Call To/Read Back Yes Blood Gas Notified Whom es Blood Gas Notified Time 14:16:10 Radiography Chest X-Ray - ED: 1 View, Read by ED Physician, Read by Radiologist and No Acute Disease Diagnostic Testing: Clinical Impression(s) from Imaging Studies Chest X-Ray 08/19/23 13:55 IMPRESSION: No interval change. COPD. Pulmonary fibrosis. Electronically Signed: Richard Dsouza MD at 14:38 EST , Portable 1 view chest x-ray was obtained. On my independent interpretation, lung pope are clear. There is normal cardiac silhouette. Bony thorax is normal. There is no acute process noted. Radiologist also interpreted the x- ray and agrees. EKG Initial EKG: Attestation: I personally reviewed and interpreted this EKG as follows: Interpretation: No Acute Injury Pattern and Sinus Tachycardia (112) Comments: EKG was obtained. On my independent interpretation, it showed a sinus tachycardia with a rate of 112. MT interval, QRS interval, and QTc intervals were all normal. [place] was normal. There are no acute ST or T wave changes. Prior EKG tracings: available for review Prior: Unchanged (08/06/2023) Management Discussion w/another healthcare provider: Hospitalist Treatment and Re-Evaluation :: Patient was given a DuoNeb aerosol initially. Patient was ordered BiPAP. However, patient refused this. Patient also refused intubation. Patient's oxygen was titrated to try to help reduce the pCO2 while maintaining adequate oxygenation. Patient was given a repeat albuterol aerosol. Case was discussed with the hospitalist. He will admit the patient to his service. Patient understood and was agreeable with the plan. All questions were answered. Critical Care Time Critical Care Time: Yes Critical care time (excluding procedures): 30-74 minutes (32), Including time spent:, Discussing w/Patient &/or Family/Rn New Graduate, Discussing w/Consultants, Arranging Admission or Transfer and Performing Direct Patient Care at Bedside Discharge Plan Dx/Rx/DC Orders Clinical Impression: Chronic hypercapnic respiratory failure, Chronic hypoxic respiratory failure, Hypoxia, COPD exacerbation Disposition Disposition: Acute Care [facility]
--- NOTE | 2023-08-19 13:51 | EKG12_ITS ---
Test Reason : SOB Blood Pressure : / mmHG Vent. Rate : 112 BPM Atrial Rate : 112 BPM P-R Int : 128 ms QRS Dur : 070 ms QT Int : 330 ms P-R-T Axes : 081 054 078 degrees QTc Int : 450 ms Sinus tachycardia Right atrial enlargement Pulmonary disease pattern Abnormal ECG Confirmed by YANNICK RAMÍREZ, EMERALD ([id number]), supervising film or videotape editor ELMIRA SOLIZ ([id number]) on 08/20/2023 10:48:55 AM Referred By: STANISLAW/BOLIVAR Confirmed By:EMERLAD LANIER MD
--- NOTE | 2023-08-19 13:55 | RAD_ITS ---
EXAM: XR CHEST, 1 VIEW CLINICAL INDICATION: Dyspnea TECHNIQUE: Frontal view of the chest. COMPARISON: XR Chest dated 08/06/2023 FINDINGS: LUNGS AND PLEURAL SPACES: Hyperinflation suggesting emphysema. Persistent reticular changes of both lung bases. HEART: Normal heart size. MEDIASTINUM: No mediastinal or hilar mass. BONES/JOINTS: No acute abnormality. RAD/Chest 1 View (Portable) IMPRESSION: No interval change. COPD. Pulmonary fibrosis. Electronically Signed: Richard Dsouza MD at 14:38 EST ,
[2023-08-19] MEDS: Ipratropium/Albuterol Sulfate 3 ML AMPUL.NEB INHALATION ×3 (14:02→22:20)
[2023-08-19 14:18] LABS: Base Excess 24 mmol/L (-2 to +2); Bicarbonate 49.3 mmol/L (22-26); Blood Gas Specimen Type ART; FI02 3.5; Mode Not entered; O2 Delivery Device Cannula; PO2 57 mmHG (75-100); SITE R Radial; SO2 86 % (95-99); Total Carbon Dioxide > 50 mmol/L; pCO2 84.9 mmHg (35-45); pH 7.37 (7.35-7.45)
--- NOTE | 2023-08-19 14:26 | ED.RN ---
RESPIRAORY THERAPIST AVILA AT BEDSIDE WITH BIPAP, PT REFUSING BIPAP AT THIS TIME. THIS RN EDUCATED IMPORTANCE OF BIPAP AT THIS TIME, PT STILL REFUSING BIPAP, ALSO STATING SHE WOULD NOT WANT TO BE INTUBATED. DR AMBROSIO MADE AWARE, O2 LOWERED TO 2L PER DR AMBROSIO.
[2023-08-19 14:56] LABS: Absolute Lymphocyte Count 0.79 X10^3/uL (0.83-4.51); Absolute Neutrophil Count 22.6 X10^3/uL (2.0-7.7); Basophil# 0.09 X10^3/uL; Basophil% 0.4 % (0-1); Hematocrit 39.1 % (37-47); Hemoglobin 11.9 g/dL (12.0-15.0); Lymphocyte # 0.79 X10^3/ul (0.83-4.51); Lymphocyte % 3.1 % (19-41); Mean Corp Hgb Conc 30.4 g/dL (32-36); Mean Corpuscular Hgb 28.7 pg (27.0-32.0); Mean Corpuscular Volume 94.2 fL (81-99); Mean Platelet Vol. 10.6 fl (6.2-12.0); Monocyte# 1.54 X10^3/uL; Monocyte% 6.1 % (0-10); NRBC Flagged by Analyzer 0 % (0-5); Neutrophil # 22.63 X10^3/uL (2.7-7.7); Neutrophil % 89.8 % (47-70); POSITIVE DIFFERENTIAL YES; Platelet Count 411 K/mm3 (150-450); RBC Distribution Width CV 15.7 % (11.6-14.6); RBC Distribution Width SD 54.4 fl (35.1-43.9); Red Blood Count 4.15 M/mm3 (4.2-5.4); White Blood Count 25.2 K/mm3 (4.4-11.0)
[2023-08-19 14:57] LABS: Differential Indicated SCAN CRITERIA MET
--- NOTE | 2023-08-19 15:01 | ED.RN ---
PT OXYGEN SATURATION STARTING TO DECLINE, 60s-70s on 2l. Pt still adamantly refusing bipap and states multiple times that she does not want intubated. Dr Sage made aware and oxygen placed on 5l. Pt working to breath. This RN spoke with POA son Juan C about condition of patient. Juan C is aware that pt does not want to be intubated but unsure if any paperwork is filled out. Juan C states he will be on his way in shortly.
[2023-08-19 15:11] LABS: D-Dimer Quantitative (DVT/PE) 0.53 FEU/ug/m (0.27-0.49)
[2023-08-19 15:15] LABS: Anion Gap 3 (5-15); BUN 42 mg/dL (7-18); BUN/Creat Ratio 88.1 RATIO (10-20); Calcium,Total 9.6 mg/dL (8.5-10.1); Chloride 94 mmol/L (98-107); Creatinine, Serum 0.48 mg/dL (0.55-1.02); EST Glomerular Filtration Rate 134 mL/min (>60); Est Glom Filt Rate - Afr Amer 162 mL/min (>60); Estimated Creatinine Clearance 31.16 ml/min; Glucose 123 mg/dL (74-106); Sodium Level 139 mmol/L (136-145); Troponin-I HS 10 pg/mL (3.0-54.0)
--- NOTE | 2023-08-19 15:16 | HP.PCM.HOS_ITS ---
HPI - General General Date of Admission: 08/19/23 Date of Service: 08/19/23 Chief Complaint: Acute on chronic hypoxic and hypercapnic respiratory failure HPI Narrative LISETTE HERNANDEZ, is a 78 F who presented to [facility] ED on 08/19/2023 with severe fatigue and worsening respiratory status. Patient seen at bedside in the ED, son present. Patient was on nonrebreather during our encounter. Patient appeared very fatigued but she was able to correctly tell me where she was, the month and year, current and previous [place] president and why she was in the hospital. Some answers were delayed but she did answer all questions appropriately. Patient tells me that she feels very fatigued and mildly short of breath at rest currently. Denies any cough, sputum production, or fevers or chills. She received a breathing treatment in the ED prior to my interview and states this was mildly helpful. She reports mild abdominal discomfort, describes this as an abdominal fullness. Has not been eating or drinking much over the past few days. Is unsure when her last bowel movement was. Patient's oxygen saturations were in the low to mid 80s on nonrebreather, and her heart rate fluctuated between the 150s and low 200s during the encounter. She denies any palpitations. Blood pressure has remained stable since arrival to the ED. Primary discussion was had with patient's son at the bedside. Patient was [facility] on [facility], but she was apparently dismissed a few months ago due to smoking while on supplemental oxygen. Son states they tried to enroll with other hospice services, but this did not work out for some reason. She most recently has been following with palliative care, and also has a home health aide coming in once per day for assistance. Patient lives with her granddaughter and the granddaughter's children, but son lives close by. Son and granddaughter are patient's primary caretakers. Son notes that the patient has appeared more debilitated than normal since her hospitalization for pneumonia a few weeks ago. He states that the patient did complete her courses of antibiotics and steroids that were prescribed on discharge from her last hospitalization. He states that he and family are aware that patient has a severe chronic illness, and that she could during this hospitalization or in the near future due to her disease. I encouraged him to keep family on standby over the next several hours to days in case patient acutely worsens, and he was agreeable with this. [facility] Medical History Anxiety Bleeding disorder cataracts COPD (chronic obstructive pulmonary disease) Gout High cholesterol Hx of gallstones Migraines Neuropathy On home O2 Osteoarthritis Osteoporosis Sleep apnea Smoker Home Medications furosemide 40 mg tablet 40 mg PO DAILY diuretic 09/19/16 [History Last Taken 08/18/23] famotidine 40 mg tablet 40 mg PO DAILY GERD 10/24/18 [History Last Taken 07/25 03/15] albuterol sulfate 1.25 mg/3 mL solution for nebulization 1.25 mg inhalation Q4H sob 04/04/21 [History Last Taken 04/03/21] citalopram 20 mg tablet 20 mg PO QHS mood 04/04/21 [History Last Taken 08/18/23] fluticasone furoate 200 mcg-vilanterol 25 mcg/dose inhalation powder (Breo Ellipta) 1 inh inhalation BID copd 04/04/21 [History Last Taken 08/18/23] loratadine 10 mg tablet 10 mg PO DAILY allergies 04/04/21 [History Last Taken 08/18/23] optuxlggrmye-gczrigho-wqmqie tablet 1 tab PO DAILY supplement 04/04/21 [History Last Taken 08/18/23] potassium chloride 20 mEq tablet,extended release(part/cryst) 20 meq PO DAILY supplement 04/04/21 [History Last Taken 08/18/23] aspirin 81 mg tablet,delayed release 81 mg PO DAILY heart health 04/20/21 [History Last Taken 08/18/23] ferrous sulfate 325 mg (65 mg iron) tablet (FeroSul) 325 mg PO BID Iron Supplement 05/15/23 [History Last Taken 08/18/23] fluticasone propionate 50 mcg/actuation nasal spray,suspension 1 spray intranasal BID Allergies 05/15/23 [History Last Taken 08/18/23] sennosides 8.6 mg-docusate sodium 50 mg tablet (2-in-1 Laxative) 2 tab-cap PO QHS stool softener 05/15/23 [History Last Taken 08/18/23] ipratropium 0.5 mg-albuterol 3 mg (2.5 mg base)/3 mL nebulization soln 3 ml inhalation Q4HWA.RT 14 days #180 mL 05/21/23 [Rx Last Taken Unknown] gabapentin 300 mg capsule 300 mg PO Q12H 08/19/23 [History Last Taken 08/18/23] lorazepam 0.5 mg tablet 0.5 mg PO Q12H PRN anxiety 08/19/23 [History Last Taken Unknown] omeprazole 20 mg capsule,delayed release 20 mg PO DAILY 08/19/23 [History Last Taken 08/18/23] ropinirole 0.5 mg tablet 0.5 mg PO DAILY 08/19/23 [History Last Taken 08/18/23] tiotropium bromide 2.5 mcg/actuation mist for inhalation (Spiriva Respimat) 2 inh inhalation Q24H 08/19/23 [History Last Taken 08/18/23] trazodone 50 mg tablet 50 mg PO DAILY 08/19/23 [History Last Taken 08/18/23] Allergy/AdvReac Type Severity Reaction Status Date / Time bupropion HCl Allergy Anaphylaxis Verified 08/19/23 12:57 [From Wellbutrin] cephalexin monohydrate Allergy Anaphylaxis Verified 08/19/23 12:57 [From Keflex] levofloxacin Allergy Anaphylaxis Verified 08/19/23 12:57 Penicillins [PCN] Allergy Anaphylaxis Verified 08/19/23 12:57 Milk Containing Products AdvReac phlegm Verified 08/19/23 12:57 (Dairy) [Milk Containing Products] Family History Father Colon cancer Heart disease Surgical History History of appendectomy History of cholecystectomy History of hysterectomy History of incisional hernia repair Status post hip surgery Social History Smoking Status: Current some day smoker tobacco type: cigarettes alcohol intake: never substance use type: does not use ROS Constitutional Constitutional: Reports fatigue; Denies chills, fever(s) or weakness Eyes Eyes: Denies change in vision Cardiovascular Cardiovascular: Denies chest pain or palpitations Respiratory/Chest Respiratory/Chest: Denies productive cough, shortness of breath at rest or wheezing Gastrointestinal Gastrointestinal: Reports abdominal pain; Denies constipation, diarrhea, nausea or vomiting Neurologic Neurologic: Denies dizziness or focal weakness Vital Signs Vital Signs Vital Signs: 08/19/23 13:00 08/19/23 13:06 08/19/23 13:59 Temperature 97.9 F Temperature Source Temporal Pulse Rate 116 H Respiratory Rate 20 H Respiratory Effort Short of Breath Respiratory Depth Deep Respiratory Pattern Normal Blood Pressure 113/80 Blood Pressure Mean 91 Pulse Ox 97 Oxygen Delivery Method Nasal Cannula Nasal Cannula Nasal Cannula Oxygen Flow Rate (L/min) 4 3 3 08/19/23 14:03 08/19/23 14:12 08/19/23 14:30 Temperature Temperature Source Pulse Rate 107 H 112 H Respiratory Rate 20 H 22 H Respiratory Effort Respiratory Depth Respiratory Pattern Normal Blood Pressure Blood Pressure Mean Pulse Ox 94 Oxygen Delivery Method Nasal Cannula Nasal Cannula Oxygen Flow Rate (L/min) 3 2 08/19/23 15:06 Temperature Temperature Source Pulse Rate 119 H Respiratory Rate 22 H Respiratory Effort Respiratory Depth Respiratory Pattern Blood Pressure 119/83 H Blood Pressure Mean 95 Pulse Ox 87 Oxygen Delivery Method Nasal Cannula Oxygen Flow Rate (L/min) 5 Weight Weight: 41.9 kg Body Mass Index (BMI) 18.0 Physical Exam Const alert and oriented x3 Constitutional Narrative: Elderly female, cachectic and very thin, appears very fatigued, mildly slowed responses but is answering questions appropriately. Mild respiratory distress noted while on nonrebreather mask. General Appearance: cooperative HEENT normocephalic, head/scalp atraumatic, hearing grossly normal bilaterally, nasal mucous membranes and turbinates normal and moist oral mucous membranes Eyes PERRL, EOMs intact bilaterally and conjunctivae normal Neck full ROM, no lymphadenopathy and supple Lymph Lymphatic: no lymphadenopathy noted Chest inspection of chest normal Resp Resp Narrative: Moderately diminished breath sounds bilaterally throughout. No wheezing noted. No crackles noted. Mild increased work of breathing noted on nonrebreather mask. Cardio Cardio Narrative: Severe tachycardia, irregular rate. No murmurs. GI normal to inspection, nondistended, normoactive bowel sounds, soft to palpation, non-tender and non-distended Back/Spine normal ROM Extremity normal to inspection and no pedal edema Skin no rashes or lesions noted Neuro No moves all extremities and No no focal motor deficits Results Lab / Micro Data 08/19/23 14:47 08/19/23 14:47 Labs: Laboratory Results - last 24 hr 08/19/23 14:47: WBC 25.2 H, RBC 4.15 L, Hgb 11.9 L, Hct 39.1, MCV 94.2, MCH 28.7, MCHC 30.4 L, RDW Std Deviation 54.4 H, RDW Coeff of Jacinto 15.7 H, Plt Count 411, MPV 10.6, Immature Gran % (Auto) 0.600, Neut % (Auto) 89.8 H, Lymph % (Auto) 3.1 L, Stoddard % (Auto) 6.1, Eos % (Auto) 0.0, Baso % (Auto) 0.4, Absolute Neuts (auto) 22.6 H, Absolute Lymphs (auto) 0.79 L, Nucleated RBC % 0, Differential Comment COMMENT, Diff Path Review January foll, D-Dimer Quant (PE/DVT) 0.53 H*, Sodium 139, Potassium 4.0, Chloride 94 L, Carbon Dioxide 42.0 H, Anion Gap 3 L, BUN 42 H, Creatinine 0.48 L, Estim Creat Clear Calc 31.16, Est GFR (MDRD) Af Amer 162, Est GFR (MDRD) Non-Af 134, BUN/Creatinine Ratio 88.1 H, Glucose 123 H, Calcium 9.6, Troponin I High Sens 10 Micro: Microbiology 08/19/23 13:56 Nasal Secretion SARS-CoV-2 & FLU Antigen (Rapid) - Final ABG Data ABG results: ABG 08/19/23 14:14 Specimen Type ART Sample Site R Radial pH 7.37 Bicarbonate Actual 49.3 H Total CO2 > 50 Base Excess 24 H O2 Saturation 86 L O2 % 3.5 ABG pCO2 84.9 H* ABG pO2 57 L O2 Delivery Device Cannula Vent Mode Not entered Crit Call To/Read Back Yes Blood Gas Notified Whom es Blood Gas Notified Time 14:16:10 Imagaing Radiology Impression Chest X-Ray 08/19/23 13:55 IMPRESSION: No interval change. COPD. Pulmonary fibrosis. Electronically Signed: Richard Dsouza MD at 14:38 EST , Assessment & Plan Assessment/Plan (1) Acute on chronic respiratory failure with hypoxia and hypercapnia: PLAN: Plan Patient is a 78-year-old female who presented to [facility] ED on 08/19/2023 with acute on chronic respiratory failure. 1. Acute on chronic hypoxic and hypercapnic respiratory failure, history of COPD with pulmonary fibrosis Patient with severe hypercapnia on admit, pCO2 84 on ABG; however, pH 7.37 so I suspect this pCO2 is not too far from her baseline. Patient appears fatigued but is alert and oriented x 3. Chest x-ray nonacute. However, patient clinically has mild to moderate increased work of breathing, diminished breath sounds bilaterally and hypoxia on nonrebreather mask at 50% FiO2. WBC count 25, unclear if infectious versus due to recent steroids as noted below. COVID and flu negative. ? Admit under inpatient status to PCU. As noted below, patient is DNR CCA, DO NOT INTUBATE. She also refuses noninvasive ventilation, which was the case on her previous admission as well. Patient reports mild subjective improvement with a breathing treatment in the ED. Will start DuoNebs every 4 hours scheduled with respiratory therapy, IV Solu-Medrol 40 mg every 8 hours, azit hromycin. Continue home long-acting inhaler. Sputum culture, respiratory PCR panel ordered. Incentive spirometry, Acapella ordered. N.p.o. for now given high concern for aspiration risk, speech therapy consulted. 2. DNR status Discussed at length with patient and her son at the bedside in the ED. Was previously with home hospice ([facility]) but was apparently dismissed by them due to her smoking while on supplemental oxygen. Has tried to enroll with other hospice agencies per the son, but this was unsuccessful for some reason. Currently follows with palliative care and has a home health overnight caregiver coming into the home daily to help. Patient lives with her granddaughter and granddaughter's kids; granddaughter and son are her primary caretakers. ? Patient and son are adamant that patient wishes to be DNR CCA, DO NOT INTUBATE and that she does not want BiPAP or other noninvasive ventilation. Patient and son state she had severe claustrophobia with BiPAP and does not want this, even if she is dying from hypercapnic respiratory failure. Their goals appear aligned with hospice care. Will consult palliative care/hospice for further recommendations. PT/OT/case management also consulted. 3. Leukocytosis WBC count 25 on admit, neutrophil predominant. Patient was recently admitted from 08/06 to 08/10 for shortness of breath and hypoxia; sputum culture grew Stenotrophomonas maltophilia. Was treated with azithromycin and amikacin (due to multiple allergies to antibiotics) while inpatient, transitioned to Bactrim on discharge. Also treated with IV steroids for presumed COPD exacerbation while inpatient, discharged on p.o. steroids to complete course. Patient and son state she completed course of steroids and antibiotics at home a few days ago. They report no new sputum production, fevers or chills at home. ? Seems unlikely patient would have new respiratory infection after recent treatment, so elevated WBC count could be due to recent steroids. However, given her respiratory failure as noted above, will treat empirically with IV azithromycin for now. Sputum culture, respiratory PCR panel ordered as noted above. Monitor daily CBC. 4. Suspected multifocal atrial tachycardia Fairly severe tachycardia noted on admission, with heart rates ranging from the 160s to 220s consistently. EKG showed sinus tachycardia with pulmonary disease pattern; this was consistent with findings on her previous EKG from 08/06/2023 as well. Blood pressures have remained stable. ? Highest concern is for MAT. Continue cardiac monitoring. Treat respiratory failure as noted above. 5. Current smoker Extensive smoking history. Current smoker, but per patient's son she has only been able to smoke a few cigarettes per day over the last week or so due to her degree of debility. ? Nicotine patch ordered per patient request. 6. 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 BMI 16 on admit. Son reports significant weight loss over the last several months. Nutrition consulted. Chronic medical conditions: ? History of PE: Eliquis discontinued on a previous hospitalization this year for severe anemia. Continue home aspirin. ? Osteoporosis: Restart alendronate at discharge. ? GERD: Continue home famotidine. ? Neuropathy: Continue home gabapentin. ? Allergies: Continue home loratadine. ? Depression/anxiety: Continue home Celexa, trazodone at night. Holding home Ativan for now given respiratory failure as above, restart as needed. ? Restless leg syndrome: Continue home ropinirole. DVT prophylaxis: SCDs CODE STATUS: DNR CCA, DO NOT INTUBATE Expected disposition: TBD Total clinical time spent by myself addressing the patient's medical issues, reviewing all the data, and collaborating with patient's care team: 75 minutes. Charges/Coding Visit Charges Inpatient E&M: 05158 Init Hosp L3
--- NOTE | 2023-08-19 15:30 | CPS ---
pt refusing bipap. talked to patient and tried to start bipap, however pt is not wanting to wear it. Placed place on 40% venti mask at 8L. notified Dr Sage
[2023-08-19] MEDS: Azithromycin 500 MG in Dextrose 5%-Water (250mL Bag) 250 ML 250 MG IV (21:21)
[2023-08-20] VITALS (22 sets, daily range): BP systolic 90–125; BP diastolic 57–79; PULSE 101–117; RESP 16–22; TEMP 36.3–36.9; O2SAT 88–99
[2023-08-20] MEDS: Ipratropium/Albuterol Sulfate 3 ML AMPUL.NEB INHALATION ×6 (03:12→22:54)
[2023-08-20 06:11] LABS: Hematocrit 36.2 % (37-47); Hemoglobin 10.9 g/dL (12.0-15.0); Mean Corp Hgb Conc 30.1 g/dL (32-36); Mean Corpuscular Hgb 29.3 pg (27.0-32.0); Mean Corpuscular Volume 97.3 fL (81-99); Mean Platelet Vol. 10.4 fl (6.2-12.0); Platelet Count 399 K/mm3 (150-450); RBC Distribution Width CV 15.6 % (11.6-14.6); RBC Distribution Width SD 55.3 fl (35.1-43.9); Red Blood Count 3.72 M/mm3 (4.2-5.4); White Blood Count 25.4 K/mm3 (4.4-11.0)
[2023-08-20] MEDS: 0.9% Saline Lock 10 ML Syringe IV ×3 (06:14→16:05)
[2023-08-20 07:00] LABS: Anion Gap 4 (5-15); BUN 43 mg/dL (7-18); BUN/Creat Ratio 97.5 RATIO (10-20); Calcium,Total 9.3 mg/dL (8.5-10.1); Chloride 94 mmol/L (98-107); Creatinine, Serum 0.44 mg/dL (0.55-1.02); EST Glomerular Filtration Rate 147 mL/min (>60); Est Glom Filt Rate - Afr Amer 178 mL/min (>60); Estimated Creatinine Clearance 27.44 ml/min; Glucose 150 mg/dL (74-106); Potassium 4.2 mmol/L (3.5-5.1); Sodium Level 142 mmol/L (136-145)
[2023-08-20] MEDS: Enoxaparin 30 MG/0.3 ML Syringe SC (09:00)
[2023-08-20] MEDS: Azithromycin 500 MG in Dextrose 5%-Water (250mL Bag) 250 ML 250 MG IV (09:03)
[2023-08-20] MEDS: 0.9% Normal Saline (250mL Bag) 250 ML 15 ML IV (10:05)
--- NOTE | 2023-08-20 12:53 | PN.HOSP_ITS ---
Reason for Visit Reason for Visit: Diagnoses Acute and chronic respiratory failure with hypoxia (08/19/23) Acute and chronic respiratory failure with hypercapnia (08/19/23) Subjective Subjective Patient very tired, will wake up and answer questions but quickly falls back asleep, respiratory status slightly better than yesterday though she does not feel significantly better at this time Objective Data Objective Data Vital Signs: Vital Signs Temp Pulse Resp BP Pulse Ox O2 Del Method O2 Flow Rate 97.6 F L 111 H 18 110/62 99 High Flow 12 08/20/23 12:41 08/20/23 12:41 08/20/23 12:41 08/20/23 12:41 08/20/23 12:41 08/20/23 12:41 08/20/23 12:41 FiO2 50 08/20/23 07:10 Oxygen Flow Rate (L/min) 12 Oxygen Delivery Method High Flow Weight: 36.9 kg Body Mass Index (BMI) 15.8 Intake & Output: Intake and Output for Last 24 Hours 08/18/23 08/19/23 08/20/23 23:59 23:59 23:59 Intake Total 255 / 255 266 / 266 Output Total 0 / 0 Balance 255 / 255 266 / 266 Medical Nutrition Assessment Dietitian: Malnutrition Criteria Met Start: 08/20/23 12:01 Freq: Status: Active Protocol: Document 08/20/23 12:01 SASHA (Rec: 08/20/23 12:01 [id number]) Nutrition Malnutrition Evidence of Malnutrition Exists Yes Malnutrition (severe): Chronic Evidenced By Suboptimal Energy Intake ( Severe),Weight Loss (Severe), Physical Changes (Severe) Clinical Problem Chronic Disease or Condition Related Malnutrition Etiology severe, chronic malnutrition related to inadequate energy intake Signs/Symptoms as evidenced by as evidenced by estimated PO intake meeting <50% of estimated energy needs >3 months, severe muscle wasting/fat loss to orbital, clavicle, acromion and temporal areas, 11lbs (11.9%) weight loss in 3 months; BMI 15.9 Status Active Problem Recommendation Dietitian Recommendations/Changes ADAT to Regular with texture/ consistency per TRAFFIC ENGINEERING TECHNICIAN to optimize oral intakes. Lab / Micro Data 08/20/23 05:30 08/20/23 05:30 Labs: Laboratory Results - last 24 hr 08/19/23 14:47: WBC 25.2 H, RBC 4.15 L, Hgb 11.9 L, Hct 39.1, MCV 94.2, MCH 28.7, MCHC 30.4 L, RDW Std Deviation 54.4 H, RDW Coeff of Jacinto 15.7 H, Plt Count 411, MPV 10.6, Immature Gran % (Auto) 0.600, Neut % (Auto) 89.8 H, Lymph % (Auto) 3.1 L, [place] % (Auto) 6.1, Eos % (Auto) 0.0, Baso % (Auto) 0.4, Absolute Neuts (auto) 22.6 H, Absolute Lymphs (auto) 0.79 L, Nucleated RBC % 0, Dif ferential Comment COMMENT, Diff Path Review January, D-Dimer Quant (PE/DVT) 0.53 H*, Sodium 139, Potassium 4.0, Chloride 94 L, Carbon Dioxide 42.0 H, Anion Gap 3 L, BUN 42 H, Creatinine 0.48 L, Estim Creat Clear Calc 31.16, Est GFR (MDRD) Af Amer 162, Est GFR (MDRD) Non-Af 134, BUN/Creatinine Ratio 88.1 H, Glucose 123 H, Lactic Acid 1.0, Calcium 9.6, Troponin I High Sens 10, B- Natriuretic Peptide 60.0 08/20/23 05:30: WBC 25.4 H, RBC 3.72 L, Hgb 10.9 L, Hct 36.2 L, MCV 97.3, MCH 29.3, MCHC 30.1 L, RDW Std Deviation 55.3 H, RDW Coeff of Jacinto 15.6 H, Plt Count 399, MPV 10.4, Sodium 142, Potassium 4.2, Chloride 94 L, Carbon Dioxide 44.0 H, Anion Gap 4 L, BUN 43 H, Creatinine 0.44 L, Estim Creat Clear Calc 27.44, Est GFR (MDRD) Af Amer 178, Est GFR (MDRD) Non-Af 147, BUN/Creatinine Ratio 97.5 H, Glucose 150 H, Calcium 9.3 Micro: Microbiology 08/19/23 19:02 Mucosa - Nasopharyngeal Respiratory Panel (PCR) - Final 08/19/23 13:56 Nasal Secretion SARS-CoV-2 & FLU Antigen (Rapid) - Final ABG Data ABG results: ABG 08/19/23 14:14 Specimen Type ART Sample Site R Radial pH 7.37 Bicarbonate Actual 49.3 H Total CO2 > 50 Base Excess 24 H O2 Saturation 86 L O2 % 3.5 ABG pCO2 84.9 H* ABG pO2 57 L O2 Delivery Device Cannula Vent Mode Not entered Crit Call To/Read Back Yes Blood Gas Notified Whom es Blood Gas Notified Time 14:16:10 Radiography Diagnostic Testing: Radiology Impression Chest X-Ray 08/19/23 13:55 IMPRESSION: No interval change. COPD. Pulmonary fibrosis. Electronically Signed: Richard Dsouza MD at 14:38 EST , Physical Exam Narrative General: Lying sideways in bed, wakes up and answers questions but quickly falls back to sleep HEENT: Atraumatic, normocephalic Eyes: Anicteric, normal conjunctiva, extraocular movements grossly intact Neck: Supple Respiratory: Increased respiratory effort, diminished throughout Cardiovascular: Intermittently slightly tachycardic GI: Soft, nontender, nondistended Extremities: No edema Musculoskeletal: Moving all extremities Neuro: No overt focal neurological deficits Skin: No rashes appreciated Psych: Attempts to be cooperative Assessment & Plan Assessment/Plan (1) Acute on chronic respiratory failure with hypoxia and hypercapnia: PLAN: Plan Patient is a 78-year-old female who presented to [facility] ED on 08/19/2023 with acute on chronic respiratory failure. 1. Acute on chronic hypoxic and hypercapnic respiratory failure, history of COPD with pulmonary fibrosis Patient with severe hypercapnia on admit, pCO2 84 on ABG; however, pH 7.37 so I suspect this pCO2 is not too far from her baseline. Patient appears fatigued but is alert and oriented x 3. Chest x-ray nonacute. However, patient clinically has mild to moderate increased work of breathing, diminished breath sounds bilaterally and hypoxia on nonrebreather mask at 50% FiO2. WBC count 25, unclear if infectious versus due to recent steroids as noted below. COVID and flu negative. ? Admit under inpatient status to PCU. As noted below, patient is DNR CCA, DO NOT INTUBATE. She also refuses noninvasive ventilation, which was the case on her previous admission as well. Patient reports mild subjective improvement with a breathing treatment in the ED. Will start DuoNebs every 4 hours scheduled with respiratory therapy, IV Solu-Medrol 40 mg every 8 hours, azithromycin. Continue home long-acting inhaler. Sputum culture, respiratory PCR panel ordered. Incentive spirometry, Acapella ordered. N.p.o. for now given high concern for aspiration risk, speech therapy consulted. -08/20: Patient did not stay awake long enough for adequate speech trial so unable to begin diet, continue nebs, azithromycin, IV steroids. Variable O2 sats, has been on high flow with some improvement but patient known to be On admission (though query if this is chronic given that she is fairly well compensated.) Patient confirmed again she does not want BiPAP or intubation. We will need to continue to discuss goals of care. Chest x-ray on admission with no interval change and no pneumonia seen so patient only receiving azithromycin at this time. Additionally no CTA obtained, symptoms were gradual and D-dimer 0.53 additionally BNP only 60 2. DNR status Discussed at length with patient and her son at the bedside in the ED. Was previously with home hospice ([facility]) but was apparently dismissed by them due to her smoking while on supplemental oxygen. Has tried to enroll with other hospice agencies per the son, but this was unsuccessful for some reason. Currently follows with palliative care and has a home health personal care aid coming into the home daily to help. Patient lives with her granddaughter and granddaughter's kids; granddaughter and son are her primary caretakers. ? Patient and son are adamant that patient wishes to be DNR CCA, DO NOT INTUBATE and that she does not want BiPAP or other noninvasive ventilation. Patient and son state she had severe claustrophobia with BiPAP and does not want this, even if she is dying from hypercapnic respiratory failure. Their goals appear aligned with hospice care. Will consult palliative care/hospice for further recommendations. PT/OT/case management also consulted. -08/20: Patient confirmed DNR/DNI and that she does not want BiPAP. Try to discuss hospice with her but patient very tired and wants to talk with her family about it prior to making any decisions. Do feel she would potentially be appropriate for inpatient hospice unit 3. Leukocytosis WBC count 25 on admit, neutrophil predominant. Patient was recently admitted from 08/06 to 08/10 for shortness of breath and hypoxia; sputum culture grew Stenotrophomonas maltophilia. Was treated with azithromycin and amikacin (due to multiple allergies to antibiotics) while inpatient, transitioned to Bactrim on discharge. Also treated with IV steroids for presumed COPD exacerbation while inpatient, discharged on p.o. steroids to complete course. Patient and son state she completed course of steroids and antibiotics at home a few days ago. They report no new sputum production, fevers or chills at home. ? Seems unlikely patient would have new respiratory infection after recent treatment, so elevated WBC count could be due to recent steroids. However, given her respiratory failure as noted above, will treat empirically with IV azithromycin for now. Sputum culture, respiratory PCR panel ordered as noted above. Monitor daily CBC. -08/20: COVID panel and respiratory panel negative, chest x-ray does not appear to have pneumonia, white blood cell count roughly the same, patient is now on IV steroids as well. Patient with no localizing signs or symptoms suggestive of other infectious etiology 4. Suspected multifocal atrial tachycardia Fairly severe tachycardia noted on admission, with heart rates ranging from the 160s to 220s consistently. EKG showed sinus tachycardia with pulmonary disease pattern; this was consistent with findings on her previous EKG from 08/06/2023 as well. Blood pressures have remained stable. ? Highest concern is for MAT. Continue cardiac monitoring. Treat respiratory failure as noted above. -08/20: Low-grade tachycardia, may be physiologic, will continue present management monitoring, optimize respiratory status as able 5. Current smoker Extensive smoking history. Current smoker, but per patient's son she has only been able to smoke a few cigarettes per day over the last week or so due to her degree of debility. ? Nicotine patch ordered per patient request. 6. 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 BMI 16 on admit. Son reports significant weight loss over the last several months. Nutrition consulted. Chronic medical conditions: ? History of PE: Eliquis discontinued on a previous hospitalization this year for severe anemia. Continue home aspirin. ? Osteoporosis: Restart alendronate at discharge. ? GERD: Continue home famotidine. ? Neuropathy: Continue home gabapentin. ? Allergies: Continue home loratadine. ? Depression/anxiety: Continue home Celexa, trazodone at night. Holding home Ativan for now given respiratory failure as above, restart as needed. ? Restless leg syndrome: Continue home ropinirole. DVT prophylaxis: SCDs CODE STATUS: DNR CCA, DO NOT INTUBATE Total clinical time spent by myself addressing the patient's medical issues, reviewing all the data, and collaborating with patient's care team: 40 minutes. Charges/Coding Visit Charges Inpatient E&M: 10486 Subs Hosp L2
--- NOTE | 2023-08-20 14:00 | CASEMGMT ---
ELADIO CM chart review: Patient was admitted 08/06-08/10/23 for acute hypoxic respiratory failure. See ELADIO CM assessment from 08/07/23. Patient was discharged to home with resumption of C, palliative care, and referral for hospital bed through [facility] [place]. Patient returned 08/19/23 for shortness of breath and was admitted for acute hypoxic respirtory failure. Patient was stating in low 80s and requiring non-rebreather 15lpm. Patient refusing bipap or NIV. Per son patient completed antibiotics at home. Family voicing interest in hospice at discharge but want to discuss with patient when more alert. CM will continue to follow this patient and plan for a safe discharge.
[2023-08-21] VITALS (15 sets, daily range): BP systolic 100–115; BP diastolic 59–73; PULSE 89–120; RESP 16–20; TEMP 36.3–37.2; O2SAT 93–100
--- NOTE | 2023-08-21 00:06 | CPS ---
Pt refuses bipap
[2023-08-21] MEDS: Ipratropium/Albuterol Sulfate 3 ML AMPUL.NEB INHALATION ×6 (03:00→23:31)
[2023-08-21] MEDS: Acetaminophen 325 MG Tablet 650 MG PO (06:00)
[2023-08-21 07:32] LABS: Anion Gap 3 (5-15); BUN 41 mg/dL (7-18); BUN/Creat Ratio 124.2 RATIO (10-20); Calcium,Total 9.3 mg/dL (8.5-10.1); Chloride 97 mmol/L (98-107); Creatinine, Serum 0.33 mg/dL (0.55-1.02); EST Glomerular Filtration Rate 205 mL/min (>60); Est Glom Filt Rate - Afr Amer 248 mL/min (>60); Estimated Creatinine Clearance 27.44 ml/min; Glucose 117 mg/dL (74-106); Potassium 3.8 mmol/L (3.5-5.1); Sodium Level 144 mmol/L (136-145)
[2023-08-21 08:00] LABS: Absolute Lymphocyte Count 0.35 X10^3/uL (0.83-4.51); Absolute Neutrophil Count 18.4 X10^3/uL (2.0-7.7); Basophil# 0.02 X10^3/uL; Basophil% 0.1 % (0-1); Hematocrit 34.5 % (37-47); Hemoglobin 10.1 g/dL (12.0-15.0); Lymphocyte # 0.35 X10^3/ul (0.83-4.51); Lymphocyte % 1.8 % (19-41); Mean Corp Hgb Conc 29.3 g/dL (32-36); Mean Corpuscular Hgb 29.4 pg (27.0-32.0); Mean Corpuscular Volume 100.3 fL (81-99); Mean Platelet Vol. 11.7 fl (6.2-12.0); Monocyte# 0.61 X10^3/uL; Monocyte% 3.1 % (0-10); NRBC Flagged by Analyzer 0 % (0-5); Neutrophil # 18.39 X10^3/uL (2.7-7.7); Neutrophil % 94.6 % (47-70); POSITIVE COUNT YES; POSITIVE DIFFERENTIAL YES; Platelet Count 306 K/mm3 (150-450); RBC Distribution Width CV 15.7 % (11.6-14.6); RBC Distribution Width SD 57.3 fl (35.1-43.9); Red Blood Count 3.44 M/mm3 (4.2-5.4); White Blood Count 19.5 K/mm3 (4.4-11.0)
[2023-08-21 08:22] LABS: Differential Indicated SCAN CRITERIA MET
[2023-08-21] MEDS: Gabapentin 300 MG Capsule PO ×2 (09:56→21:26)
[2023-08-21] MEDS: Enoxaparin 30 MG/0.3 ML Syringe SC (09:56)
[2023-08-21] MEDS: Ferrous Sulfate 325 MG Tablet PO (09:57)
[2023-08-21] MEDS: Pramipexole Di-HCl 0.25 MG Tablet PO (09:57)
[2023-08-21] MEDS: Famotidine 20 MG Tablet PO (09:57)
[2023-08-21] MEDS: Aspirin E.C. 81 MG Tablet PO ×2 (09:57)
[2023-08-21] MEDS: Loratadine 10 MG Tablet PO (09:57)
[2023-08-21] MEDS: Azithromycin 500 MG in Dextrose 5%-Water (250mL Bag) 250 ML 250 MG IV (09:57)
[2023-08-21] MEDS: 0.9% Saline Lock 10 ML Syringe IV (09:58)
[2023-08-21 10:32] LABS: Differential Comment SCANNED
--- NOTE | 2023-08-21 13:50 | CASEMGMT ---
Physician spoke with patient who was agreeable to Hospice at discharge. ZAIDA let Gene know that the physician spoke with patient and she agreed to Hospice. ZAIDA spoke with patient's son Juan C and patient is active with [facility]. Gene was in agreement with Hospice with [facility]. ZAIDA called [facility] ([phone] and [phone]) and spoke with Goldy. ZAIDA explained patient is active with them for Palliative and would like to transition to Hospice at discharge from the hospital. Goldy said he would pass along this information to Nata as she handles the [place] area. ZAIDA then received a call from Nata with [facility]. Nata asked ZAIDA to send some progress notes from patient's visit and her demographics sheet. ZAIDA let Nata know patient may be discharged tomorrow vs Saturday. Plan: Home with [facility]. Sharifa KONG
--- NOTE | 2023-08-21 14:22 | CASEMGMT ---
ZAIDA faxed information to [facility]. Sharifa Wilburn AUTOMOBILE BUMPER STRAIGHTENER METAL EXPEDITER
[2023-08-21 15:22] LABS: Pathologist Review Reviewed
--- NOTE | 2023-08-21 16:48 | PN.HOSP_ITS ---
Reason for Visit Reason for Visit: Diagnoses Acute and chronic respiratory failure with hypoxia (08/19/23) Acute and chronic respiratory failure with hypercapnia (08/19/23) Subjective Subjective Patient more awake and alert today, respiratory status significantly improved, is coughing, was able to send sputum sample Objective Data Objective Data Vital Signs: Vital Signs Temp Pulse Resp BP Pulse Ox O2 Del Method O2 Flow Rate 98.9 F 95 20 H 110/69 95 Nasal Cannula 5 08/21/23 14:21 08/21/23 15:18 08/21/23 15:18 08/21/23 14:21 08/21/23 14:21 08/21/23 14:21 08/21/23 14:21 FiO2 50 08/20/23 07:10 Oxygen Flow Rate (L/min) 5 Oxygen Delivery Method Nasal Cannula Weight: 36.9 kg Body Mass Index (BMI) 15.8 Intake & Output: Intake and Output for Last 24 Hours 08/19/23 08/20/23 08/21/23 23:59 23:59 23:59 Intake Total 255 / 255 266 / 266 255 / 255 Output Total 0 / 0 0 / 0 Balance 255 / 255 266 / 266 255 / 255 Medical Nutrition Assessment Dietitian: Malnutrition Criteria Met Start: 08/20/23 12:01 Freq: Status: Active Protocol: Document 08/20/23 12:01 SASHA (Rec: 08/20/23 12:01 [id number]) Nutrition Malnutrition Evidence of Malnutrition Exists Yes Malnutrition (severe): Chronic Evidenced By Suboptimal Energy Intake ( Severe),Weight Loss (Severe), Physical Changes (Severe) Clinical Problem Chronic Disease or Condition Related Malnutrition Etiology severe, chronic malnutrition related to inadequate energy intake Signs/Symptoms as evidenced by as evidenced by estimated PO intake meeting <50% of estimated energy needs >3 months, severe muscle wasting/fat loss to orbital, clavicle, acromion and temporal areas, 11lbs (11.9%) weight loss in 3 months; BMI 15.9 Status Active Problem Recommendation Dietitian Recommendations/Changes ADAT to Regular with texture/ consistency per FELT PAD CUTTER to optimize oral intakes. Lab / Micro Data 08/21/23 05:55 08/21/23 05:55 Labs: Laboratory Results - last 24 hr 08/19/23 14:47: Diff Path Review Reviewed 08/21/23 05:55: WBC 19.5 H, RBC 3.44 L, Hgb 10.1 L, Hct 34.5 L, MCV 100.3 H, MCH 29.4, MCHC 29.3 L, RDW Std Deviation 57.3 H, RDW Coeff of Jacinto 15.7 H, Plt Count 306, MPV 11.7, Immature Gran % (Auto) 0.400, Neut % (Auto) 94.6 H, Lymph % (Auto) 1.8 L, [place] % (Auto) 3.1, Eos % (Auto) 0.0, Baso % (Auto) 0.1, Absolute Neuts (auto) 18.4 H, Absolute Lymphs (auto) 0.35 L, Nucleated RBC % 0, Differential Comment SCANNED, Sodium 144, Potassium 3.8, Chloride 97 L, Carbon Dioxide 44.0 H, Anion Gap 3 L, BUN 41 H, Creatinine 0.33 L, Estim Creat Clear Calc 27.44, Est GFR (MDRD) Af Amer 248, Est GFR (MDRD) Non-Af 205, BUN/Creatinine Ratio 124.2 H, Glucose 117 H, Calcium 9.3 Micro: Microbiology 08/20/23 19:50 Sputum, Expectorated/Coughed Gram Stain - Final 08/19/23 19:02 Mucosa - Nasopharyngeal Respiratory Panel (PCR) - Final 08/19/23 13:56 Nasal Secretion SARS-CoV-2 & FLU Antigen (Rapid) - Final Physical Exam Narrative General: Alert, oriented, appears more comfortable HEENT: Atraumatic, normocephalic Eyes: Anicteric, normal conjunctiva, extraocular movements grossly intact Neck: Supple Respiratory: Coarse bilaterally R >L, WOB improving Cardiovascular: Slightly tachycardic GI: Soft, nontender, nondistended Extremities: No edema Musculoskeletal: Moving all extremities Neuro: No overt focal neurological deficits Skin: No rashes appreciated Psych: Cooperative Assessment & Plan Assessment/Plan (1) Acute on chronic respiratory failure with hypoxia and hypercapnia: PLAN: Plan Patient is a 78-year-old female who presented to [facility] ED on 08/19/2023 with acute on chronic respiratory failure. 1. Acute on chronic hypoxic and hypercapnic respiratory failure, history of COPD with pulmonary fibrosis Patient with severe hypercapnia on admit, pCO2 84 on ABG; however, pH 7.37 so I suspect this pCO2 is not too far from her baseline. Patient appears fatigued but is alert and oriented x 3. Chest x-ray nonacute. However, patient clinically has mild to moderate increased work of breathing, diminished breath sounds bilaterally and hypoxia on nonrebreather mask at 50% FiO2. WBC count 25, unclear if infectious versus due to recent steroids as noted below. COVID and flu negative. ? Admit under inpatient status to PCU. As noted below, patient is DNR CCA, DO NOT INTUBATE. She also refuses noninvasive ventilation, which was the case on her previous admission as well. Patient reports mild subjective improvement with a breathing treatment in the ED. Will start DuoNebs every 4 hours scheduled with respiratory therapy, IV Solu-Medrol 40 mg every 8 hours, azithromycin. Continue home long-acting inhaler. Sputum culture, respiratory PCR panel ordered. Incentive spirometry, Acapella ordered. N.p.o. for now given high concern for aspiration risk, speech therapy consulted. -08/20: Patient did not stay awake long enough for adequate speech trial so unable to begin diet, continue nebs, azithromycin, IV steroids. Variable O2 sats, has been on high flow with some improvement but patient known to be On admission (though query if this is chronic given that she is fairly well compensated.) Patient confirmed again she does not want BiPAP or intubation. We will need to continue to discuss goals of care. Chest x-ray on admission with no interval change and no pneumonia seen so patient only receiving azithromycin at this time. Additionally no CTA obtained, symptoms were gradual and D-dimer 0.53 additionally BNP only 60 -08/21: Patient looks significantly better today, continue present management, patient was able to give sputum sample and culture pending 2. DNR status Discussed at length with patient and her son at the bedside in the ED. Was previously with home hospice ([facility]) but was apparently dismissed by them due to her smoking while on supplemental oxygen. Has tried to enroll with other hospice agencies per the son, but this was unsuccessful for some reason. Currently follows with palliative care and has a home health primary care sales representative coming into the home daily to help. Patient lives with her granddaughter and granddaughter's kids; granddaughter and son are her primary caretakers. ? Patient and son are adamant that patient wishes to be DNR CCA, DO NOT INTUBATE and that she does not want BiPAP or other noninvasive ventilation. Patient and son state she had severe claustrophobia with BiPAP and does not want this, even if she is dying from hypercapnic respiratory failure. Their goals appear aligned with hospice care. Will consult palliative care/hospice for further recommendations. PT/OT/case management also consulted. -08/20: Patient confirmed DNR/DNI and that she does not want BiPAP. Try to discuss hospice with her but patient very tired and wants to talk with her family about it prior to making any decisions. Do feel she would potentially be appropriate for inpatient hospice unit -08/21: Patient improving is still open to hospice on discharge 3. Leukocytosis WBC count 25 on admit, neutrophil predominant. Patient was recently admitted from 08/06 to 08/10 for shortness of breath and hypoxia; sputum culture grew Stenotrophomonas maltophilia. Was treated with azithromycin and amikacin (due to multiple allergies to antibiotics) while inpatient, transitioned to Bactrim on discharge. Also treated with IV steroids for presumed COPD exacerbation while inpatient, discharged on p.o. steroids to complete course. Patient and son state she completed course of steroids and antibiotics at home a few days ago. They report no new sputum production, fevers or chills at home. ? Seems unlikely patient would have new respiratory infection after recent treatment, so elevated WBC count could be due to recent steroids. However, given her respiratory failure as noted above, will treat empirically with IV azithromycin for now. Sputum culture, respiratory PCR panel ordered as noted above. Monitor daily CBC. -08/20: COVID panel and respiratory panel negative, chest x-ray does not appear to have pneumonia, white blood cell count roughly the same, patient is now on IV steroids as well. Patient with no localizing signs or symptoms suggestive of other infectious etiology -08/21: Continue present management 4. Suspected multifocal atrial tachycardia Fairly severe tachycardia noted on admission, with heart rates ranging from the 160s to 220s consistently. EKG showed sinus tachycardia with pulmonary disease pattern; this was consistent with findings on her previous EKG from 08/06/2023 as well. Blood pressures have remained stable. ? Highest concern is for MAT. Continue cardiac monitoring. Treat respiratory failure as noted above. -08/20: Low-grade tachycardia, may be physiologic, will continue present ma nagement monitoring, optimize respiratory status as able 5. Current smoker Extensive smoking history. Current smoker, but per patient's son she has only been able to smoke a few cigarettes per day over the last week or so due to her degree of debility. ? Nicotine patch ordered per patient request. 6. 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 BMI 16 on admit. Son reports significant weight loss over the last several months. Nutrition consulted. Chronic medical conditions: ? History of PE: Eliquis discontinued on a previous hospitalization this year for severe anemia. Continue home aspirin. ? Osteoporosis: Restart alendronate at discharge. ? GERD: Continue home famotidine. ? Neuropathy: Continue home gabapentin. ? Allergies: Continue home loratadine. ? Depression/anxiety: Continue home Celexa, trazodone at night. Holding home Ativan for now given respiratory failure as above, restart as needed. ? Restless leg syndrome: Continue home ropinirole. DVT prophylaxis: SCDs CODE STATUS: DNR CCA, DO NOT INTUBATE Total clinical time spent by myself addressing the patient's medical issues, reviewing all the data, and collaborating with patient's care team: 40 minutes. Charges/Coding Visit Charges Inpatient E&M: 70417 Subs Hosp L2
[2023-08-21] MEDS: Citalopram 20 MG Tablet PO (21:26)
[2023-08-22] VITALS (15 sets, daily range): BP systolic 101–109; BP diastolic 60–70; PULSE 71–115; RESP 15–20; TEMP 36.4–36.9; O2SAT 75–99
[2023-08-22] MEDS: Ipratropium/Albuterol Sulfate 3 ML AMPUL.NEB INHALATION ×5 (03:31→23:14)
[2023-08-22 06:39] LABS: Absolute Lymphocyte Count 0.34 X10^3/uL (0.83-4.51); Absolute Neutrophil Count 10.9 X10^3/uL (2.0-7.7); Basophil# 0.01 X10^3/uL; Basophil% 0.1 % (0-1); Hematocrit 29.3 % (37-47); Hemoglobin 8.9 g/dL (12.0-15.0); Lymphocyte # 0.34 X10^3/ul (0.83-4.51); Mean Corp Hgb Conc 30.4 g/dL (32-36); Mean Corpuscular Volume 95.4 fL (81-99); Mean Platelet Vol. 10.4 fl (6.2-12.0); Monocyte# 0.19 X10^3/uL; Monocyte% 1.7 % (0-10); NRBC Flagged by Analyzer 0 % (0-5); Neutrophil # 10.89 X10^3/uL (2.7-7.7); Neutrophil % 94.7 % (47-70); POSITIVE DIFFERENTIAL YES; Platelet Count 399 K/mm3 (150-450); RBC Distribution Width CV 15.5 % (11.6-14.6); RBC Distribution Width SD 53.3 fl (35.1-43.9); Red Blood Count 3.07 M/mm3 (4.2-5.4); White Blood Count 11.5 K/mm3 (4.4-11.0)
[2023-08-22 06:40] LABS: Differential Indicated SCAN CRITERIA MET
[2023-08-22 07:18] LABS: Hypochromasia 2+
[2023-08-22 07:24] LABS: BUN 28 mg/dL (7-18); BUN/Creat Ratio 102.2 RATIO (10-20); Calcium,Total 9.2 mg/dL (8.5-10.1); Carbon Dioxide > 45.0 mmol/L (21.0-32.0); Chloride 97 mmol/L (98-107); Creatinine, Serum 0.27 mg/dL (0.55-1.02); EST Glomerular Filtration Rate 254 mL/min (>60); Est Glom Filt Rate - Afr Amer 308 mL/min (>60); Estimated Creatinine Clearance 27.44 ml/min; Glucose 141 mg/dL (74-106); Potassium 3.6 mmol/L (3.5-5.1); Sodium Level 141 mmol/L (136-145)
[2023-08-22] MEDS: Enoxaparin 30 MG/0.3 ML Syringe SC (08:49)
[2023-08-22] MEDS: Ferrous Sulfate 325 MG Tablet PO (08:50)
[2023-08-22] MEDS: Pramipexole Di-HCl 0.25 MG Tablet PO (08:50)
[2023-08-22] MEDS: Loratadine 10 MG Tablet PO (08:50)
[2023-08-22] MEDS: Famotidine 20 MG Tablet PO (08:50)
[2023-08-22] MEDS: Gabapentin 300 MG Capsule PO ×2 (08:54→20:43)
[2023-08-22] MEDS: Azithromycin 500 MG in Dextrose 5%-Water (250mL Bag) 250 ML 250 MG IV (08:54)
--- NOTE | 2023-08-22 13:34 | PCM.PN.HOSP ---
Reason for Visit Reason for Visit: Diagnoses Acute and chronic respiratory failure with hypoxia (08/19/23) Acute and chronic respiratory failure with hypercapnia (08/19/23) Subjective Subjective Patient beginning to feel better, sitting up in chair, more mobile, did still desaturate when walking on 6 L but doing much better at rest Objective Data Objective Data Vital Signs: Vital Signs Temp Pulse Resp BP Pulse Ox O2 Del Method O2 Flow Rate 97.7 F L 71 16 101/67 96 Nasal Cannula 2.5 08/22/23 08:46 08/22/23 11:13 08/22/23 11:13 08/22/23 08:46 08/22/23 12:16 08/22/23 11:13 08/22/23 12:16 FiO2 50 08/20/23 07:10 Oxygen Flow Rate (L/min) [ 6 AMBULATING with Oxygen #3] Oxygen Flow Rate (L/min) [ 5 AMBULATING with Oxygen #2] Oxygen Flow Rate (L/min) [ 3 AMBULATING with Oxygen #1] Oxygen Flow Rate (L/min) [At 3 REST with Oxygen] Oxygen Flow Rate (L/min) 2.5 Oxygen Delivery Method Nasal Cannula Weight: 36.9 kg Body Mass Index (BMI) 15.8 Intake & Output: Intake and Output for Last 24 Hours 08/20/23 08/21/23 08/22/23 23:59 23:59 23:59 Intake Total 266 / 266 285 / 285 494 / 494 Output Total 0 / 0 0 / 0 0 / 0 Balance 266 / 266 285 / 285 494 / 494 Medical Nutrition Assessment Dietitian: Malnutrition Criteria Met Start: 08/20/23 12:01 Freq: Status: Active Protocol: Document 08/20/23 12:01 (Rec: 08/20/23 12:01 [id number]) Nutrition Malnutrition Evidence of Malnutrition Exists Yes Malnutrition (severe): Chronic Evidenced By Suboptimal Energy Intake ( Severe),Weight Loss (Severe), Physical Changes (Severe) Clinical Problem Chronic Disease or Condition Related Malnutrition Etiology severe, chronic malnutrition related to inadequate energy intake Signs/Symptoms as evidenced by as evidenced by estimated PO intake meeting <50% of estimated energy needs >3 months, severe muscle wasting/fat loss to orbital, clavicle, acromion and temporal areas, 11lbs (11.9%) weight loss in 3 months; BMI 15.9 Status Active Problem Recommendation Dietitian Recommendations/Changes ADAT to Regular with texture/ consistency per CARE CLINICIAN to optimize oral intakes. Lab / Micro Data 08/22/23 05:40 08/22/23 05:40 Labs: Laboratory Results - last 24 hr 08/19/23 14:47: Diff Path Review Reviewed 08/22/23 05:40: WBC 11.5 H, RBC 3.07 L, Hgb 8.9 L, Hct 29.3 L, MCV 95.4, MCH 29.0, MCHC 30.4 L, RDW Std Deviation 53.3 H, RDW Coeff of Jacinto 15.5 H, Plt Count 399, MPV 10.4, Immature Gran % (Auto) 0.500, Neut % (Auto) 94.7 H, Lymph % (Auto) 3.0 L, [place] % (Auto) 1.7, Eos % (Auto) 0.0, Baso % (Auto) 0.1, Absolute Neuts (auto) 10.9 H, Absolute Lymphs (auto) 0.34 L, Nucleated RBC % 0, Hypochromasia 2+, Sodium 141, Potassium 3.6, Chloride 97 L, Carbon Dioxide > 45.0 H*, Anion Gap TNP, BUN 28 H, Creatinine 0.27 L, Estim Creat Clear Calc 27.44, Est GFR (MDRD) Af Amer 308, Est GFR (MDRD) Non-Af 254, BUN/Creatinine Ratio 102.2 H, Glucose 141 H, Calcium 9.2 Micro: Microbiology 08/20/23 19:50 Sputum, Expectorated/Coughed Gram Stain - Final 08/20/23 19:50 Sputum, Expectorated/Coughed Respiratory Culture - Final Mixed normal respiratory senait. No Streptococcus pneumoniae, beta-hemolytic Streptococcus or Staphylococcus aureus isolated. 08/19/23 19:02 Mucosa - Nasopharyngeal Respiratory Panel (PCR) - Final 08/19/23 13:56 Nasal Secretion SARS-CoV-2 & FLU Antigen (Rapid) - Final Physical Exam Narrative General: Alert, oriented, appears more comfortable HEENT: Atraumatic, normocephalic Eyes: Anicteric, normal conjunctiva, extraocular movements grossly intact Neck: Supple Respiratory: Work of breathing significantly improved, aeration significantly improved Cardiovascular: Slightly tachycardic GI: Soft, nontender, nondistended Extremities: No edema Musculoskeletal: Moving all extremities Neuro: No overt focal neurological deficits Skin: No rashes appreciated Psych: Cooperative Assessment & Plan Assessment/Plan (1) Acute on chronic respiratory failure with hypoxia and hypercapnia: PLAN: Plan Patient is a 78-year-old female who presented to [facility] ED on 08/19/2023 with acute on chronic respiratory failure. 1. Acute on chronic hypoxic and hypercapnic respiratory failure, history of COPD with pulmonary fibrosis Patient with severe hypercapnia on admit, pCO2 84 on ABG; however, pH 7.37 so I suspect this pCO2 is not too far from her baseline. Patient appears fatigued but is alert and oriented x 3. Chest x-ray nonacute. However, patient clinically has mild to moderate increased work of breathing, diminished breath sounds bilaterally and hypoxia on nonrebreather mask at 50% FiO2. WBC count 25, unclear if infectious versus due to recent steroids as noted below. COVID and flu negative. ? Admit under inpatient status to PCU. As noted below, patient is DNR CCA, DO NOT INTUBATE. She also refuses noninvasive ventilation, which was the case on her previous admission as well. Patient reports mild subjective improvement with a breathing treatment in the ED. Will start DuoNebs every 4 hours scheduled with respiratory therapy, IV Solu-Medrol 40 mg every 8 hours, azithromycin. Continue home long-acting inhaler. Sputum culture, respiratory PCR panel ordered. Incentive spirometry, Acapella ordered. N.p.o. for now given high concern for aspiration risk, speech therapy consulted. -08/20: Patient did not stay awake long enough for adequate speech trial so unable to begin diet, continue nebs, azithromycin, IV steroids. Variable O2 sats, has been on high flow with some improvement but patient known to be On admission (though query if this is chronic given that she is fairly well compensated.) Patient confirmed again she does not want BiPAP or intubation. We will need to continue to discuss goals of care. Chest x-ray on admission with no interval change and no pneumonia seen so patient only receiving azithromycin at this time. Additionally no CTA obtained, symptoms were gradual and D-dimer 0.53 additionally BNP only 60 -08/21: Patient looks significantly better today, continue present management, patient was able to give sputum sample and culture pending -08/22: Patient continues to improve, sputum culture normal respiratory senait, continue present medications, once patient can ambulate with 6 L can likely DC home with hospice. Was unable to do so today, so continue current management we will retry tomorrow 2. DNR status Discussed at length with patient and her son at the bedside in the ED. Was previously with home hospice ([facility]) but was apparently dismissed by them due to her smoking while on supplemental oxygen. Has tried to enroll with other hospice agencies per the son, but this was unsuccessful for some reason. Currently follows with palliative care and has a home health resident care supervisor coming into the home daily to help. Patient lives with her granddaughter and granddaughter's kids; granddaughter and son are her primary caretakers. ? Patient and son are adamant that patient wishes to be DNR CCA, DO NOT INTUBATE and that she does not want BiPAP or other noninvasive ventilation. Patient and son state she had severe claustrophobia with BiPAP and does not want this, even if she is dying from hypercapnic respiratory failure. Their goals appear aligned with hospice care. Will consult palliative care/hospice for further recommendations. PT/OT/case management also consulted. -08/20: Patient confirmed DNR/DNI and that she does not want BiPAP. Try to discuss hospice with her but patient very tired and wants to talk with her family about it prior to making any decisions. Do feel she would potentially be appropriate for inpatient hospice unit -08/21: Patient improving is still open to hospice on discharge -08/22: Likely home with hospice 3. Leukocytosis WBC count 25 on admit, neutrophil predominant. Patient was recently admitted from 08/06 to 08/10 for shortness of breath and hypoxia; sputum culture grew Stenotrophomonas maltophilia. Was treated with azithromycin and amikacin (due to multiple allergies to antibiotics) while inpatient, transitioned to Bactrim on discharge. Also treated with IV steroids for presumed COPD exacerbation while inpatient, discharged on p.o. steroids to complete course. Patient and son state she completed course of steroids and antibiotics at home a few days ago. They report no new sputum production, fevers or chills at home. ? Seems unlikely patient would have new respiratory infection after recent treatment, so elevated WBC count could be due to recent steroids. However, given her respiratory failure as noted above, will treat empirically with IV azithromycin for now. Sputum culture, respiratory PCR panel ordered as noted above. Monitor daily CBC. -08/20: COVID panel and respiratory panel negative, chest x-ray does not appear to have pneumonia, white blood cell count roughly the same, patient is now on IV steroids as well. Patient with no localizing signs or symptoms suggestive of other infectious etiology -08/21: Continue present management -08/22: Improved 4. Suspected multifocal atrial tachycardia Fairly severe tachycardia noted on admission, with heart rates ranging from the 160s to 220s consistently. EKG showed sinus tachycardia with pulmonary disease pattern; this was consistent with findings on her previous EKG from 08/06/2023 as well. Blood pressures have remained stable. ? Highest concern is for MAT. Continue cardiac monitoring. Treat respiratory failure as noted above. -08/20: Low-grade tachycardia, may be physiologic, will continue present management monitoring, optimize respiratory status as able -08/22: Continues to improve 5. Current smoker Extensive smoking history. Current smoker, but per patient's son she has only been able to smoke a few cigarettes per day over the last week or so due to her degree of debility. ? Nicotine patch ordered per patient request. 6. 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 BMI 16 on admit. Son reports significant weight loss over the last several months. Nutrition consulted. Chronic medical conditions: ? History of PE: Eliquis discontinued on a previous hospitalization this year for severe anemia. Continue home aspirin. ? Osteoporosis: Restart alendronate at discharge. ? GERD: Continue home famotidine. ? Neuropathy: Continue home gabapentin. ? Allergies: Continue home loratadine. ? Depression/anxiety: Continue home Celexa, trazodone at night. Holding home Ativan for now given respiratory failure as above, restart as needed. ? Restless leg syndrome: Continue home ropinirole. DVT prophylaxis: SCDs CODE STATUS: DNR CCA, DO NOT INTUBATE Total clinical time spent by myself addressing the patient's medical issues, reviewing all the data, and collaborating with patient's care team: 36 minutes. Charges/Coding Visit Charges Inpatient E&M: 87705 Subs Hosp L2
--- NOTE | 2023-08-22 14:29 | CASEMGMT ---
Patient is not going to be discharged today. ZAIDA called Nata with [facility] and let her know patient is not ready for discharged yet today. ZAIDA will follow up with her tomorrow. Plan: Home with [facility]. Sharifa KONG
[2023-08-22] MEDS: 0.9% Saline Lock 10 ML Syringe IV ×2 (14:48→20:44)
[2023-08-22] MEDS: Citalopram 20 MG Tablet PO (20:43)
[2023-08-23] VITALS (14 sets, daily range): BP systolic 98–110; BP diastolic 55–72; PULSE 84–115; RESP 16–18; TEMP 36.6–36.9; O2SAT 81–98
[2023-08-23] MEDS: Ipratropium/Albuterol Sulfate 3 ML AMPUL.NEB INHALATION ×6 (03:42→23:15)
[2023-08-23 06:26] LABS: Absolute Lymphocyte Count 0.28 X10^3/uL (0.83-4.51); Absolute Neutrophil Count 6.4 X10^3/uL (2.0-7.7); Basophil# 0.01 X10^3/uL; Basophil% 0.1 % (0-1); Hematocrit 26.6 % (37-47); Hemoglobin 8.3 g/dL (12.0-15.0); Lymphocyte # 0.28 X10^3/ul (0.83-4.51); Mean Corp Hgb Conc 31.2 g/dL (32-36); Mean Corpuscular Hgb 29.5 pg (27.0-32.0); Mean Corpuscular Volume 94.7 fL (81-99); Mean Platelet Vol. 10.1 fl (6.2-12.0); Monocyte# 0.33 X10^3/uL; Monocyte% 4.7 % (0-10); NRBC Flagged by Analyzer 0 % (0-5); Neutrophil # 6.41 X10^3/uL (2.7-7.7); Neutrophil % 90.9 % (47-70); POSITIVE DIFFERENTIAL YES; Platelet Count 381 K/mm3 (150-450); RBC Distribution Width CV 15.3 % (11.6-14.6); RBC Distribution Width SD 52.9 fl (35.1-43.9); Red Blood Count 2.81 M/mm3 (4.2-5.4); White Blood Count 7.1 K/mm3 (4.4-11.0)
[2023-08-23 06:29] LABS: Differential Indicated SCAN CRITERIA MET
[2023-08-23] MEDS: 0.9% Saline Lock 10 ML Syringe IV ×2 (06:47→22:00)
[2023-08-23 07:17] LABS: Anion Gap 4 (5-15); BUN 25 mg/dL (7-18); BUN/Creat Ratio 55.9 RATIO (10-20); Calcium,Total 8.5 mg/dL (8.5-10.1); Chloride 98 mmol/L (98-107); Creatinine, Serum 0.45 mg/dL (0.55-1.02); EST Glomerular Filtration Rate 145 mL/min (>60); Est Glom Filt Rate - Afr Amer 175 mL/min (>60); Estimated Creatinine Clearance 27.44 ml/min; Glucose 231 mg/dL (74-106); Potassium 3.1 mmol/L (3.5-5.1); Sodium Level 141 mmol/L (136-145)
[2023-08-23] MEDS: Pramipexole Di-HCl 0.25 MG Tablet PO (08:10)
[2023-08-23] MEDS: Loratadine 10 MG Tablet PO (08:10)
[2023-08-23] MEDS: Gabapentin 300 MG Capsule PO ×2 (08:10→22:00)
[2023-08-23] MEDS: Ferrous Sulfate 325 MG Tablet PO (08:10)
[2023-08-23] MEDS: Famotidine 20 MG Tablet PO (08:10)
[2023-08-23] MEDS: Aspirin E.C. 81 MG Tablet PO (08:10)
[2023-08-23] MEDS: Azithromycin 500 MG in Dextrose 5%-Water (250mL Bag) 250 ML 250 MG IV (08:10)
[2023-08-23] MEDS: Enoxaparin 30 MG/0.3 ML Syringe SC (08:10)
--- NOTE | 2023-08-23 11:07 | CASEMGMT ---
Patient is ready for discharge home with Hospice. ZAIDA called Nata at [facility] and left her a voice mail letting her know this information. Sharifa Wilburn ASSOCIATE MEDICAL DIRECTOR LUANN
[2023-08-23] MEDS: Potassium Chloride Oral Tablet 20 MEQ 40 MEQ PO (12:03)
[2023-08-23] MEDS: Acetaminophen 325 MG Tablet 650 MG PO (12:25)
--- NOTE | 2023-08-23 12:44 | CASEMGMT ---
ZAIDA received a phone call from Nata with [facility]. Nata said she tried to get a hold of patient and her son. Nata did leave a message for Gene. Nata asked that ZAIDA let her know when patient will be leaving and to fax her the order for hospice as well as d/c information. Sharifa Wilburn DELIVERY PROFESSIONAL LUANN
--- NOTE | 2023-08-23 14:49 | DCINST_ITS ---
Discharge Instructions Diet Discharge Diet: No restrictions Activity Discharge Activity: - (Increase activity as tolerated) Follow Up Care Test Results: Test results from this visit will be discussed in further detail at your follow- up appointment, if applicable. Discharge Plan Admission Admit Date/Time: 08/19/23 16:41 Primary Reason for Your Visit: Shortness of breath Attending Provider: Alda Gan Primary Care Provider: EMMA DILLON Consulting Providers: Ruddy Sahu; Mike Perez; Jenna Sanchez; Alicia Avila; Marika Langley SHOE STITCHER Instructions Patient Instructions: ED Dyspnea Additional Instructions / Restrictions: DISCHARGE INSTRUCTIONS PLEASE READ *Please take this with you to your next doctors appointment* - You will be discharged on a prednisone taper and given a prescription for nicotine patches -You will be discharged on a prednisone taper: -60 mg daily x3 days -50mg daily x3 days -40mg daily x3 days -30mg daily x3 days -20mg daily x3 days -10mg daily x3 days -Your Lasix will be decreased to 20 mg and potassium to 10 mg -Weigh yourself every day. A sudden weight gain can mean you are retaining fluid. Weigh yourself at the same time of day and in the same kind of clothes. Ideally, weigh yourself first thing in the morning after you empty your bladder, but before you eat breakfast. -Please call your physician if your weight goes up by more than 2 pounds in 1 day or 5 pounds in 1 week. This can be a sign that you are retaining more fluid than you should be. -Would recommend lab work (BMP) to check your potassium and kidney function in 2 to 3 days through your primary care physician's office. Please call their office upon discharge to obtain order for lab work. -Please call your primary care provider's office upon discharge to schedule a hospital follow up within 1 week. -For any concerning signs or symptoms please call 911 or proceed to the nearest emergency department Discharge Orders/Prescriptions Prescriptions: New nicotine 14 mg/24 hr Patch 24 Hour 14 mg transdermal DAILY 30 Days Qty: 28 0RF potassium chloride 10 mEq capsule, extended release 10 meq PO DAILY Qty: 30 0RF prednisone 20 mg Tablet See Taper PO BREAKFAST Qty: 32 0RF Taper: Prednisone Taper 60 mg WITH BREAKFAST for 3 Days and 0 Hour 50 mg WITH BREAKFAST for 3 Days and 0 Hour 40 mg WITH BREAKFAST for 3 Days and 0 Hour 30 mg WITH BREAKFAST for 3 Days and 0 Hour 20 mg WITH BREAKFAST for 3 Days and 0 Hour 10 mg WITH BREAKFAST for 3 Days and 0 Hour Continued famotidine 40 tablet 40 mg PO DAILY [id number] Tablet 1 tab PO DAILY albuterol sulfate 1.25 mg/3 mL Solution For Nebulization 1.25 mg INHALATION Q4H citalopram 20 mg tablet 20 mg PO QHS loratadine 10 mg Tablet 10 mg PO DAILY fluticasone furoate-vilanterol [Breo Ellipta] 200-25 mcg/dose blister with device 1 inh INHALATION BID aspirin 81 mg Tablet,Delayed Release (Dr/Ec) 81 mg PO DAILY ferrous sulfate [FeroSul] 325 mg (65 mg iron) tablet 325 mg PO BID fluticasone propionate 50 mcg/actuation spray,suspension 1 spray INTRANASAL BID sennosides-docusate sodium [2-in-1 Laxative] 8.6-50 mg tablet 2 tab-cap PO QHS ipratropium-albuterol 0.5 mg-3 mg(2.5 mg base)/3 mL Solution For Nebulization 3 ml inhalation Q4HWA.RT 14 Days Qty: 180 0RF ropinirole 0.5 mg tablet 0.5 mg PO DAILY omeprazole 20 mg capsule,delayed release(DR/EC) 20 mg PO DAILY gabapentin 300 mg capsule 300 mg PO Q12H Spiriva Respimat 2.5 mcg/actuation mist 2 inh INHALATION Q24H Changed furosemide 40 MG tablet 20 mg PO DAILY Qty: 30 0RF Patient Comments: water pill Discontinued potassium chloride 20 mEq tablet,ER particles/crystals 20 meq PO DAILY trazodone 50 mg tablet 50 mg PO DAILY lorazepam 0.5 mg tablet 0.5 mg PO Q12H PRN (Reason: anxiety) Referrals / Follow Up: EMMA DILLON [Other] - Within 1 Week EMMA DILLON [Other] Disposition Disposition (needs filled in before D/C Order can be placed): Hospice in Home
--- NOTE | 2023-08-23 14:54 | DS.PCM_ITS ---
Providers Date of Admission: 08/19/23 Date of Discharge: 08/24/23 Primary Care Physician: EMMA DILLON Consultations 08/19/23 18:47 Consult: Hospice / Palliative Care Routine Consulting Provider: [facility] Reason for Consult: End-stage COPD/pulmonary fibrosis EMERGENT Consult: No MD Notified: Yes Date Notified: 08/19/23 Time Notified: 16:48 Method of Notification: Verbal Reason For Visit: ACUTE ON CHRONIC RESPIRATORY FAILURE Diagnosis Discharge Diagnosis (1) Acute on chronic respiratory failure with hypoxia and hypercapnia: Status: Chronic Code(s): J96.21 - Acute and chronic respiratory failure with hypoxia; J96.22 - Acute and chronic respiratory failure with hypercapnia Plan #Acute on chronic hypoxic and hypercapnic respiratory failure 2/2 AECOPD with pulmonary fibrosis #Suspected multifocal atrial tachycardia #Current smoker #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 History of PE:. ? Osteoporosis: ? GERD:. ? Neuropathy ? Allergies ? Depression/anxiety ? Restless leg syndrome Medications at Discharge Home Medications famotidine 40 mg tablet 40 mg PO DAILY GERD 10/24/18 albuterol sulfate 1.25 mg/3 mL solution for nebulization 1.25 mg inhalation Q4H sob 04/04/21 citalopram 20 mg tablet 20 mg PO QHS mood 04/04/21 fluticasone furoate 200 mcg-vilanterol 25 mcg/dose inhalation powder (Breo Ellipta) 1 inh inhalation BID copd 04/04/21 loratadine 10 mg tablet 10 mg PO DAILY allergies 04/04/21 umgrikbhcjze-fbtnmepv-plfbkn tablet 1 tab PO DAILY supplement 04/04/21 aspirin 81 mg tablet,delayed release 81 mg PO DAILY heart health 04/20/21 ferrous sulfate 325 mg (65 mg iron) tablet (FeroSul) 325 mg PO BID Iron Supplement 05/15/23 fluticasone propionate 50 mcg/actuation nasal spray,suspension 1 spray intranasal BID Allergies 05/15/23 sennosides 8.6 mg-docusate sodium 50 mg tablet (2-in-1 Laxative) 2 tab-cap PO QHS stool softener 05/15/23 ipratropium 0.5 mg-albuterol 3 mg (2.5 mg base)/3 mL nebulization soln 3 ml inh alation Q4HWA.RT breathing 14 days #180 mL 05/21/23 gabapentin 300 mg capsule 300 mg PO Q12H pain 08/19/23 omeprazole 20 mg capsule,delayed release 20 mg PO DAILY reflux 08/19/23 ropinirole 0.5 mg tablet 0.5 mg PO DAILY restless legs 08/19/23 tiotropium bromide 2.5 mcg/actuation mist for inhalation (Spiriva Respimat) 2 inh inhalation Q24H breathing 08/19/23 furosemide 40 mg tablet 20 mg (1/2 x 40 mg) PO DAILY diuretic #30 tabs 08/23/23 nicotine 14 mg/24 hr daily transdermal patch 14 mg transdermal DAILY 30 days #28 ea 08/23/23 potassium chloride 10 mEq capsule,extended release 10 meq PO DAILY #30 caps 08/23/23 prednisone 20 mg tablet See Taper PO BREAKFAST #32 tabs 08/23/23 Hospital Course Summary of Care Provided Minutes Spent on Discharge: 35 Hospital Course: 78-year-old female history of anxiety, COPD, gout, tobacco use presented to [facility] 08/19/2023 due to fatigue and worsening respiratory status. Patient was hypoxic and hypercapnic but refused BiPAP and also denied intubation, she remained on high flow and was treated for COPD exacerbation and subsequently improved. Sputum culture with normal respiratory senait and she completed her azithromycin and plan for discharge on steroid taper. She is agreeable to home with outpatient hospice referral and on day of discharge is in stable condition. DISCHARGE INSTRUCTIONS PLEASE READ *Please take this with you to your next doctors appointment* - You will be discharged on a prednisone taper and given a prescription for nicotine patches -You will be discharged on a prednisone taper: -60 mg daily x3 days -50mg daily x3 days -40mg daily x3 days -30mg daily x3 days -20mg daily x3 days -10mg daily x3 days -Your Lasix will be decreased to 20 mg and potassium to 10 mg -Weigh yourself every day. A sudden weight gain can mean you are retaining fluid. Weigh yourself at the same time of day and in the same kind of clothes. Ideally, weigh yourself first thing in the morning after you empty your bladder, but before you eat breakfast. -Please call your physician if your weight goes up by more than 2 pounds in 1 day or 5 pounds in 1 week. This can be a sign that you are retaining more fluid than you should be. -Would recommend lab work (BMP) to check your potassium and kidney function in 2 to 3 days through your primary care physician's office. Please call their office upon discharge to obtain order for lab work. -Please call your primary care provider's office upon discharge to schedule a hospital follow up within 1 week. -For any concerning signs or symptoms please call 911 or proceed to the nearest emergency department Physical Exam Narrative General: Alert, oriented, appears more comfortable HEENT: Atraumatic, normocephalic Eyes: Anicteric, normal conjunctiva, extraocular movements grossly intact Neck: Supple Respiratory: Work of breathing significantly improved, aeration improved Cardiovascular: Intermittently slightly tachycardic GI: Soft, nontender, nondistended Extremities: No edema Musculoskeletal: Moving all extremities Neuro: No overt focal neurological deficits Skin: No rashes appreciated Psych: Cooperative Medical Records Data Medical Nutrition Assessment Dietitian: Malnutrition Criteria Met Start: 08/20/23 12:01 Freq: Status: Active Protocol: Document 08/20/23 12:01 (Rec: 08/20/23 12:01 [id number]) Nutrition Malnutrition Evidence of Malnutrition Exists Yes Malnutrition (severe): Chronic Evidenced By Suboptimal Energy Intake ( Severe),Weight Loss (Severe), Physical Changes (Severe) Clinical Problem Chronic Disease or Condition Related Malnutrition Etiology severe, chronic malnutrition related to inadequate energy intake Signs/Symptoms as evidenced by as evidenced by estimated PO intake meeting <50% of estimated energy needs >3 months, severe muscle wasting/fat loss to orbital, clavicle, acromion and temporal areas, 11lbs (11.9%) weight loss in 3 months; BMI 15.9 Status Active Problem Recommendation Dietitian Recommendations/Changes ADAT to Regular with texture/ consistency per PRINCIPAL PLANNER to optimize oral intakes. Weight / BMI Weight Weight: 36.9 kg Body Mass Index (BMI) 15.8 ABG / Lab / Microbiology Data 08/24/23 05:07 08/24/23 05:07 Laboratory: Laboratory Results - last 24 hr 08/23/23 05:15: WBC 7.1, RBC 2.81 L, Hgb 8.3 L, Hct 26.6 L, MCV 94.7, MCH 29.5, MCHC 31.2 L, RDW Std Deviation 52.9 H, RDW Coeff of Jacinto 15.3 H, Plt Count 381, MPV 10.1, Immature Gran % (Auto) 0.300, Neut % (Auto) 90.9 H, Lymph % (Auto) 4.0 L, Johnston % (Auto) 4.7, Eos % (Auto) 0.0, Baso % (Auto) 0.1, Absolute Neuts (auto) 6.4, Absolute Lymphs (auto) 0.28 L, Nucleated RBC % 0, Differential Comment COMMENT, Sodium 141, Potassium 3.1 L, Chloride 98, Carbon Dioxide 39.0 H, Anion Gap 4 L, BUN 25 H, Creatinine 0.45 L, Estim Creat Clear Calc 27.44, Est GFR (MDRD) Af Amer 175, Est GFR (MDRD) Non-Af 145, BUN/Creatinine Ratio 55.9 H, Glucose 231 H, Calcium 8.5 Microbiology: Microbiology 08/20/23 19:50 Sputum, Expectorated/Coughed Gram Stain - Final 08/20/23 19:50 Sputum, Expectorated/Coughed Respiratory Culture - Final Mixed normal respiratory senait. No Streptococcus pneumoniae, beta-hemolytic Streptococcus or Staphylococcus aureus isolated. 08/19/23 19:02 Mucosa - Nasopharyngeal Respiratory Panel (PCR) - Final 08/19/23 13:56 Nasal Secretion SARS-CoV-2 & FLU Antigen (Rapid) - Final D/C Instructions Discharge Diet: No restrictions Meaningful Use Info Meaningful Use Diagnoses (Choose all that apply): None applicable Discharge Plan Admission Admit Date/Time: 08/19/23 16:41 Primary Reason for Your Visit: Shortness of breath Attending Provider: Alda Gan Primary Care Provider: EMMA DILLON Consulting Providers: Ruddy Sahu; Mike Perez; Jenna Sanchez; Leann Avila; Marika Langley GROCERY SUPERVISOR Instructions Patient Instructions: ED Dyspnea Additional Instructions / Restrictions: DISCHARGE INSTRUCTIONS PLEASE READ *Please take this with you to your next doctors appointment* - You will be discharged on a prednisone taper and given a prescription for nicotine patches -You will be discharged on a prednisone taper: -60 mg daily x3 days -50mg daily x3 days -40mg daily x3 days -30mg daily x3 days -20mg daily x3 days -10mg daily x3 days -Your Lasix will be decreased to 20 mg and potassium to 10 mg -Weigh yourself every day. A sudden weight gain can mean you are retaining fluid. Weigh yourself at the same time of day and in the same kind of clothes. Ideally, weigh yourself first thing in the morning after you empty your bladder, but before you eat breakfast. -Please call your physician if your weight goes up by more than 2 pounds in 1 day or 5 pounds in 1 week. This can be a sign that you are retaining more fluid than you should be. -Would recommend lab work (BMP) to check your potassium and kidney function in 2 to 3 days through your primary care physician's office. Please call their office upon discharge to obtain order for lab work. -Please call your primary care provider's office upon discharge to schedule a hospital follow up within 1 week. -For any concerning signs or symptoms please call 911 or proceed to the nearest emergency department Discharge Orders/Prescriptions Prescriptions: New nicotine 14 mg/24 hr Patch 24 Hour 14 mg transdermal DAILY 30 Days Qty: 28 0RF potassium chloride 10 mEq capsule, extended release 10 meq PO DAILY Qty: 30 0RF prednisone 20 mg Tablet See Taper PO BREAKFAST Qty: 32 0RF Taper: Prednisone Taper 60 mg WITH BREAKFAST for 3 Days and 0 Hour 50 mg WITH BREAKFAST for 3 Days and 0 Hour 40 mg WITH BREAKFAST for 3 Days and 0 Hour 30 mg WITH BREAKFAST for 3 Days and 0 Hour 20 mg WITH BREAKFAST for 3 Days and 0 Hour 10 mg WITH BREAKFAST for 3 Days and 0 Hour Continued famotidine 40 tablet 40 mg PO DAILY [id number] Tablet 1 tab PO DAILY albuterol sulfate 1.25 mg/3 mL Solution For Nebulization 1.25 mg INHALATION Q4H citalopram 20 mg tablet 20 mg PO QHS loratadine 10 mg Tablet 10 mg PO DAILY fluticasone furoate-vilanterol [Breo Ellipta] 200-25 mcg/dose blister with device 1 inh INHALATION BID aspirin 81 mg Tablet,Delayed Release (Dr/Ec) 81 mg PO DAILY ferrous sulfate [FeroSul] 325 mg (65 mg iron) tablet 325 mg PO BID fluticasone propionate 50 mcg/actuation spray,suspension 1 spray INTRANASAL BID sennosides-docusate sodium [2-in-1 Laxative] 8.6-50 mg tablet 2 tab-cap PO QHS ipratropium-albuterol 0.5 mg-3 mg(2.5 mg base)/3 mL Solution For Nebulization 3 ml inhalation Q4HWA.RT 14 Days Qty: 180 0RF ropinirole 0.5 mg tablet 0.5 mg PO DAILY omeprazole 20 mg capsule,delayed release(DR/EC) 20 mg PO DAILY gabapentin 300 mg capsule 300 mg PO Q12H Spiriva Respimat 2.5 mcg/actuation mist 2 inh INHALATION Q24H Changed furosemide 40 MG tablet 20 mg PO DAILY Qty: 30 0RF Patient Comments: water pill Discontinued potassium chloride 20 mEq tablet,ER particles/crystals 20 meq PO DAILY trazodone 50 mg tablet 50 mg PO DAILY lorazepam 0.5 mg tablet 0.5 mg PO Q12H PRN (Reason: anxiety) Referrals / Follow Up: EMMA DILLON [Other] - Within 1 Week EMMA DILLON [Other] Disposition Disposition (needs filled in before D/C Order can be placed): Hospice in Home Charges/Coding Visit Charges Inpatient E&M: 70188 Disch Hosp >30min
--- NOTE | 2023-08-23 15:34 | CASEMGMT ---
Addendum entered by Sharifa Wilburn 08/23/23 15:56: ZAIDA received a call from Nata with [employer]. Nata said they will be able to get a bigger concentrator delivered today for patient. ZAIDA received a call from Nata with [facility] [employer]. ZAIDA updated Nata on the discharge plan. Plan: d/c home with [facility] ([phone] [phone] Sharifa KONG Original Note: ZAIDA spoke with Gene patient's son. He said Nata from [id number] called him and left him a voice mail. He was going to call her back. Juan C will take patient home, but he will have to go home and get her O2 tanks. ZAIDA called Nata with [employer] and left her a voice mail asking if they will be able to get a concentrator in the home before patient gets home as patient needs 8L with ambulation. Await return call. Sharifa KONG
--- NOTE | 2023-08-23 16:01 | PHA.DC.MR.R ---
Pharmacy [place] Med Reconciliation Pharmacy Service has performed discharge medication reconciliation for this patient. The patient's discharge medication list was reviewed for discrepancies and discrepancies were resolved. Medications at Discharge Home Medications famotidine 40 mg tablet 40 mg PO DAILY GERD 10/24/18 albuterol sulfate 1.25 mg/3 mL solution for nebulization 1.25 mg inhalation Q4H sob 04/04/21 citalopram 20 mg tablet 20 mg PO QHS mood 04/04/21 fluticasone furoate 200 mcg-vilanterol 25 mcg/dose inhalation powder (Breo Ellipta) 1 inh inhalation BID copd 04/04/21 loratadine 10 mg tablet 10 mg PO DAILY allergies 04/04/21 [id number]-sverwcsj-vwfxnn tablet 1 tab PO DAILY supplement 04/04/21 aspirin 81 mg tablet,delayed release 81 mg PO DAILY heart health 04/20/21 ferrous sulfate 325 mg (65 mg iron) tablet (FeroSul) 325 mg PO BID Iron Supplement 05/15/23 fluticasone propionate 50 mcg/actuation nasal spray,suspension 1 spray intranasal BID Allergies 05/15/23 sennosides 8.6 mg-docusate sodium 50 mg tablet (2-in-1 Laxative) 2 tab-cap PO QHS stool softener 05/15/23 ipratropium 0.5 mg-albuterol 3 mg (2.5 mg base)/3 mL nebulization soln 3 ml inhalation Q4HWA.RT breathing 14 days #180 mL 05/21/23 gabapentin 300 mg capsule 300 mg PO Q12H pain 08/19/23 omeprazole 20 mg capsule,delayed release 20 mg PO DAILY reflux 08/19/23 ropinirole 0.5 mg tablet 0.5 mg PO DAILY restless legs 08/19/23 tiotropium bromide 2.5 mcg/actuation mist for inhalation (Spiriva Respimat) 2 inh inhalation Q24H breathing 08/19/23 furosemide 40 mg tablet 20 mg (1/2 x 40 mg) PO DAILY diuretic #30 tabs 08/23/23 nicotine 14 mg/24 hr daily transdermal patch 14 mg transdermal DAILY 30 days #28 ea 08/23/23 potassium chloride 10 mEq capsule,extended release 10 meq PO DAILY #30 caps 08/23/23 prednisone 20 mg tablet See Taper PO BREAKFAST #32 tabs 08/23/23
--- NOTE | 2023-08-23 16:03 | CASEMGMT ---
Addendum entered by Sharifa Wilburn 08/23/23 16:18: Patient will be discharging home on Hospice tomorrow. ZAIDA notified RN, patient, propellant charge zone assembler, Juan C, and Nata with [facility]. Plan: Home with [facility] tomorrow 08-24. Juan C will transport patient home via car. Sharifa KONG Original Note: Patient's son Juan C expressed concern with patient going home this evening as there is no one at home to be there for the delivery of the bigger concentrator. They would feel more comfortable having everything set up in the home before patient gets home. ZAIDA sent the physician a message with this information. Await response. Sharifa KONG
--- NOTE | 2023-08-23 17:53 | PN.HOSP_ITS ---
Reason for Visit Reason for Visit: Diagnoses Acute and chronic respiratory failure with hypoxia (08/19/23) Acute and chronic respiratory failure with hypercapnia (08/19/23) Subjective Subjective Patient feeling somewhat worn out but still doing much better today overall Objective Data Objective Data Vital Signs: Vital Signs Temp Pulse Resp BP Pulse Ox O2 Del Method O2 Flow Rate 98.4 F 98 18 105/72 96 Nasal Cannula 3 08/23/23 14:00 08/23/23 15:42 08/23/23 15:42 08/23/23 14:00 08/23/23 14:00 08/23/23 14:00 08/23/23 14:00 FiO2 50 08/20/23 07:10 Oxygen Flow Rate (L/min) [ 7 AMBULATING with Oxygen #3] Oxygen Flow Rate (L/min) [ 5 AMBULATING with Oxygen #2] Oxygen Flow Rate (L/min) [ 3 AMBULATING with Oxygen #1] Oxygen Flow Rate (L/min) [At 3 REST with Oxygen] Oxygen Flow Rate (L/min) 3 Oxygen Delivery Method Nasal Cannula Weight: 36.9 kg Body Mass Index (BMI) 15.8 Intake & Output: Intake and Output for Last 24 Hours 08/21/23 08/22/23 08/23/23 23:59 23:59 23:59 Intake Total 285 / 285 494 / 694 695 / 695 Output Total 0 / 0 0 / 0 Balance 285 / 285 494 / 694 695 / 695 Medical Nutrition Assessment Dietitian: Malnutrition Criteria Met Start: 08/20/23 12:01 Freq: Status: Active Protocol: Document 08/23/23 14:57 RMA (Rec: 08/23/23 14:57 RMA [id number]) Nutrition Malnutrition Evidence of Malnutrition Exists Yes Malnutrition (severe): Chronic Evidenced By Suboptimal Energy Intake ( Severe),Weight Loss (Severe), Physical Changes (Severe) Clinical Problem Chronic Disease or Condition Related Malnutrition Etiology severe, chronic malnutrition related to inadequate energy intake Signs/Symptoms as evidenced by as evidenced by estimated PO intake meeting <50% of estimated energy needs >3 months, severe muscle wasting/fat loss to orbital, clavicle, acromion and temporal areas, 11lbs (11.9%) weight loss in 3 months; BMI 15.9 Status Active Problem Recommendation Dietitian Recommendations/Changes Continue liberalized Regular diet with texture/consistency per ENVIRONMENTAL SPECIALIST. Will add 120mL ensure plus high protein TID w/ meals. Additional ONS as needed. Lab / Micro Data 08/23/23 05:15 08/23/23 05:15 Labs: Laboratory Results - last 24 hr 08/23/23 05:15: WBC 7.1, RBC 2.81 L, Hgb 8.3 L, Hct 26.6 L, MCV 94.7, MCH 29.5, MCHC 31.2 L, RDW Std Deviation 52.9 H, RDW Coeff of Jacinto 15.3 H, Plt Count 381, MPV 10.1, Immature Gran % (Auto) 0.300, Neut % (Auto) 90.9 H, Lymph % (Auto) 4.0 L, [place] % (Auto) 4.7, Eos % (Auto) 0.0, Baso % (Auto) 0.1, Absolute Neuts (auto) 6.4, Absolute Lymphs (auto) 0.28 L, Nucleated RBC % 0, Differential Comment COMMENT, Sodium 141, Potassium 3.1 L, Chloride 98, Carbon Dioxide 39.0 H, Anion Gap 4 L, BUN 25 H, Creatinine 0.45 L, Estim Creat Clear Calc 27.44, Est GFR (MDRD) Af Amer 175, Est GFR (MDRD) Non-Af 145, BUN/Creatinine Ratio 55.9 H, Glucose 231 H, Calcium 8.5 Micro: Microbiology 08/20/23 19:50 Sputum, Expectorated/Coughed Gram Stain - Final 08/20/23 19:50 Sputum, Expectorated/Coughed Respiratory Culture - Final Mixed normal respiratory senait. No Streptococcus pneumoniae, beta-hemolytic Streptococcus or Staphylococcus aureus isolated. 08/19/23 19:02 Mucosa - Nasopharyngeal Respiratory Panel (PCR) - Final 08/19/23 13:56 Nasal Secretion SARS-CoV-2 & FLU Antigen (Rapid) - Final Physical Exam Narrative General: Alert, oriented, appears more comfortable HEENT: Atraumatic, normocephalic Eyes: Anicteric, normal conjunctiva, extraocular movements grossly intact Neck: Supple Respiratory: Work of breathing significantly improved, some transmitted upper airway sounds again Cardiovascular: Slightly tachycardic GI: Soft, nontender, nondistended Extremities: No edema Musculoskeletal: Moving all extremities Neuro: No overt focal neurological deficits Skin: No rashes appreciated Psych: Cooperative Assessment & Plan Assessment/Plan (1) Acute on chronic respiratory failure with hypoxia and hypercapnia: PLAN: Plan Patient is a 78-year-old female who presented to [facility] ED on 08/19/2023 with acute on chronic respiratory failure. 1. Acute on chronic hypoxic and hypercapnic respiratory failure, history of COPD with pulmonary fibrosis Patient with severe hypercapnia on admit, pCO2 84 on ABG; however, pH 7.37 so I suspect this pCO2 is not too far from her baseline. Patient appears fatigued but is alert and oriented x 3. Chest x-ray nonacute. However, patient clin ically has mild to moderate increased work of breathing, diminished breath sounds bilaterally and hypoxia on nonrebreather mask at 50% FiO2. WBC count 25, unclear if infectious versus due to recent steroids as noted below. COVID and flu negative. ? Admit under inpatient status to PCU. As noted below, patient is DNR CCA, DO NOT INTUBATE. She also refuses noninvasive ventilation, which was the case on her previous admission as well. Patient reports mild subjective improvement with a breathing treatment in the ED. Will start DuoNebs every 4 hours scheduled with respiratory therapy, IV Solu-Medrol 40 mg every 8 hours, azithromycin. Continue home long-acting inhaler. Sputum culture, respiratory PCR panel ordered. Incentive spirometry, Acapella ordered. N.p.o. for now given high concern for aspiration risk, speech therapy consulted. -08/20: Patient did not stay awake long enough for adequate speech trial so unable to begin diet, continue nebs, azithromycin, IV steroids. Variable O2 sats, has been on high flow with some improvement but patient known to be On admission (though query if this is chronic given that she is fairly well compensated.) Patient confirmed again she does not want BiPAP or intubation. We will need to continue to discuss goals of care. Chest x-ray on admission with no interval change and no pneumonia seen so patient only receiving azithromycin at this time. Additionally no CTA obtained, symptoms were gradual and D-dimer 0.53 additionally BNP only 60 -08/21: Patient looks significantly better today, continue present management, patient was able to give sputum sample and culture pending -08/22: Patient continues to improve, sputum culture normal respiratory senait, continue present medications, once patient can ambulate with 6 L can likely DC home with hospice. Was unable to do so today, so continue current management we will retry tomorrow -08/23: Going home with hospice she does not need to be down to the 6 L, was able to ambulate with higher amount of O2, hospice is being set up, patient to DC tomorrow 2. DNR status Discussed at length with patient and her son at the bedside in the ED. Was previously with home hospice ([facility]) but was apparently dismissed by them due to her smoking while on supplemental oxygen. Has tried to enroll with other hospice agencies per the son, but this was unsuccessful for some reason. Currently follows with palliative care and has a home health director of health care marketing coming into the home daily to help. Patient lives with her granddaughter and granddaughter's kids; granddaughter and son are her primary caretakers. ? Patient and son are adamant that patient wishes to be DNR CCA, DO NOT INTUBATE and that she does not want BiPAP or other noninvasive ventilation. Patient and son state she had severe claustrophobia with BiPAP and does not want this, even if she is dying from hypercapnic respiratory failure. Their goals appear aligned with hospice care. Will consult palliative care/hospice for further recommendations. PT/OT/case management also consulted. -08/20: Patient confirmed DNR/DNI and that she does not want BiPAP. Try to discuss hospice with her but patient very tired and wants to talk with her family about it prior to making any decisions. Do feel she would potentially be appropriate for inpatient hospice unit -08/21: Patient improving is still open to hospice on discharge -08/22: Likely home with hospice -08/23: Home with hospice tomorrow 3. Leukocytosis WBC count 25 on admit, neutrophil predominant. Patient was recently admitted from 08/06 to 08/10 for shortness of breath and hypoxia; sputum culture grew Stenotrophomonas maltophilia. Was treated with azithromycin and amikacin (due to multiple allergies to antibiotics) while inpatient, transitioned to Bactrim on discharge. Also treated with IV steroids for presumed COPD exacerbation while inpatient, discharged on p.o. steroids to complete course. Patient and son state she completed course of steroids and antibiotics at home a few days ago. They report no new sputum production, fevers or chills at home. ? Seems unlikely patient would have new respiratory infection after recent treatment, so elevated WBC count could be due to recent steroids. However, given her respiratory failure as noted above, will treat empirically with IV azithromycin for now. Sputum culture, respiratory PCR panel ordered as noted above. Monitor daily CBC. -08/20: COVID panel and respiratory panel negative, chest x-ray does not appear to have pneumonia, white blood cell count roughly the same, patient is now on IV steroids as well. Patient with no localizing signs or symptoms suggestive of other infectious etiology -08/21: Continue present management -08/22: Improved 4. Suspected multifocal atrial tachycardia Fairly severe tachycardia noted on admission, with heart rates ranging from the 160s to 220s consistently. EKG showed sinus tachycardia with pulmonary disease pattern; this was consistent with findings on her previous EKG from 08/06/2023 as well. Blood pressures have remained stable. ? Highest concern is for MAT. Continue cardiac monitoring. Treat respiratory failure as noted above. -08/20: Low-grade tachycardia, may be physiologic, will continue present management monitoring, optimize respiratory status as able -08/22: Continues to improve 5. Current smoker Extensive smoking history. Current smoker, but per patient's son she has only been able to smoke a few cigarettes per day over the last week or so due to her degree of debility. ? Nicotine patch ordered per patient request. 6. 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 BMI 16 on admit. Son reports significant weight loss over the last several months. Nutrition consulted. Chronic medical conditions: ? History of PE: Eliquis discontinued on a previous hospitalization this year for severe anemia. Continue home aspirin. ? Osteoporosis: Restart alendronate at discharge. ? GERD: Continue home famotidine. ? Neuropathy: Continue home gabapentin. ? Allergies: Continue home loratadine. ? Depression/anxiety: Continue home Celexa, trazodone at night. Holding home Ativan for now given respiratory failure as above, restart as needed. ? Restless leg syndrome: Continue home ropinirole. DVT prophylaxis: SCDs CODE STATUS: DNR CCA, DO NOT INTUBATE Total clinical time spent by myself addressing the patient's medical issues, re viewing all the data, and collaborating with patient's care team: 36 minutes. Charges/Coding Visit Charges Inpatient E&M: 91397 Subs Hosp L2
[2023-08-23] MEDS: Citalopram 20 MG Tablet PO (22:00)
[2023-08-24] VITALS (9 sets, daily range): BP systolic 93–108; BP diastolic 60–69; PULSE 82–98; RESP 16–20; TEMP 36.6–36.8; O2SAT 95–100
[2023-08-24] MEDS: Ipratropium/Albuterol Sulfate 3 ML AMPUL.NEB INHALATION ×4 (03:35→14:57)
[2023-08-24 05:48] LABS: Absolute Lymphocyte Count 0.23 X10^3/uL (0.83-4.51); Absolute Neutrophil Count 4.9 X10^3/uL (2.0-7.7); Hematocrit 28.5 % (37-47); Hemoglobin 8.8 g/dL (12.0-15.0); Lymphocyte # 0.23 X10^3/ul (0.83-4.51); Lymphocyte % 4.3 % (19-41); Mean Corp Hgb Conc 30.9 g/dL (32-36); Mean Corpuscular Hgb 29.6 pg (27.0-32.0); Monocyte# 0.19 X10^3/uL; Monocyte% 3.6 % (0-10); NRBC Flagged by Analyzer 0 % (0-5); Neutrophil # 4.86 X10^3/uL (2.7-7.7); Neutrophil % 91.9 % (47-70); POSITIVE DIFFERENTIAL YES; Platelet Count 380 K/mm3 (150-450); RBC Distribution Width CV 15.3 % (11.6-14.6); RBC Distribution Width SD 53.1 fl (35.1-43.9); Red Blood Count 2.97 M/mm3 (4.2-5.4); White Blood Count 5.3 K/mm3 (4.4-11.0)
[2023-08-24 05:50] LABS: Differential Indicated SCAN CRITERIA MET
[2023-08-24] MEDS: 0.9% Saline Lock 10 ML Syringe IV ×2 (06:13→14:55)
[2023-08-24 06:16] LABS: Anion Gap 4 (5-15); BUN 20 mg/dL (7-18); BUN/Creat Ratio 65.4 RATIO (10-20); Calcium,Total 8.4 mg/dL (8.5-10.1); Chloride 100 mmol/L (98-107); Creatinine, Serum 0.31 mg/dL (0.55-1.02); EST Glomerular Filtration Rate 224 mL/min (>60); Est Glom Filt Rate - Afr Amer 271 mL/min (>60); Estimated Creatinine Clearance 27.44 ml/min; Glucose 168 mg/dL (74-106); Sodium Level 142 mmol/L (136-145)
[2023-08-24] MEDS: Aspirin E.C. 81 MG Tablet PO (08:09)
[2023-08-24] MEDS: Ferrous Sulfate 325 MG Tablet PO (08:09)
--- NOTE | 2023-08-24 09:51 | CASEMGMT ---
Social Work SW received a call from [facility] asking for the order for hospice. Order faxed. GIGI Cason
[2023-08-24 09:57] LABS: Differential Comment SCANNED
--- NOTE | 2023-08-24 11:03 | CASEMGMT ---
Addendum entered by Norma Johnson 08/24/23 12:13: Social Work SW spoke w/Mario from [facility], he states that there are 4 SNFs in the area where they go: [facility] [place], [facility] and [facility]. SW spoke w/son again, reviewed the list with him. He plans to come speak w/pt this afternoon, and SW instructed him to ask for SW once they speak to let SW know where they would like referrals sent. SW let him know that we will likely not be able to get pt to SNF today, will likely be Saturday. Son states understanding. Plan: SNF w/hospice, son to speak w/pt and let pt know facility. Original Note: Social Work Son Juan C called. He states has been thinking about it all night, and he does not think bringing pt home on hospice is the best plan. He is concerned about her oxygen needs at home. He also states that there is not enough space in her home to even set up a bed, and pt needs a hospital bed. He has not yet spoken w/pt about it, but does think she may agree to this. We spoke about where he may want pt to go. He states that pt has been to [facility] in the past, and to the [facility]. [facility] We spoke about his talking to pt and having her help choose the facility. SW explained will also need to call [facility] to see which facilities they work with. He states pt cannot work w/[facility] as she was smoking still when needing O2. SW explained will call [facility], find out options then call him back. He will then need to follow up w/the pt. ZAIDA called [facility], awaiting a call back from senior sales compensation analyst RN. ZAIDA texted physician to let her know the change in plan. GIGI Cason
[2023-08-24] MEDS: Loratadine 10 MG Tablet PO (11:29)
[2023-08-24] MEDS: Gabapentin 300 MG Capsule PO (11:29)
[2023-08-24] MEDS: Famotidine 20 MG Tablet PO (11:29)
[2023-08-24] MEDS: Pramipexole Di-HCl 0.25 MG Tablet PO (12:18)
--- NOTE | 2023-08-24 14:47 | CASEMGMT ---
Addendum entered by Norma Johnson 08/24/23 15:47: Social Work SW has not heard back from the hospice agency [facility]. SW called son Juan C to see if he may have an alternate number, since SW not getting called back. Gene states they called him and actually spoke w/him about going home on palliative vs hospice. Pt had palliative prior to this admission. SW inquired why [facility] was encouraging palliative rather than hospice. Gene states they were not encouraging it but just talking to him about options, explained the difference between palliative and hospice. As per Gene pt still wants to seek treatment and wants to just continue w/palliative at this time. SW let son know then that pt can go home anytime, and will let the charge authorizer know. SW spoke w/son about the oxygen. He states a concentrator was delivered from [facility] and hospice will take this, but pt's oxygen concentrator that she already has through [facility] goes up to 10L. SW let the charge authorizer know that pt is going to go back home w/palliative care and not hospice, can go anytime today. SW let the physician know as well that pt is now just wanting to go home w/palliative care and not hospice. ELADIO Laurent from [facility] then called SW and confirmed the above, that pt will go home with palliative care. Pt going home today. GIGI Cason Original Note: Social Work SW met w/pt and son in room. Pt is insistent on going home w/hospice, does not want to go to a facility. Son is okay with this, states pt's granddaughter and great grandchildren are living w/her. They are working on putting their things in storage to make room for the hospital bed, they just moved in two weeks ago. Pt states she sleeps in a recliner, and is okay with continuing to sleep in the recliner until there is space for the hospital bed. SW spoke w/pt about going to a facility if it becomes too difficult at home. Pt is agreeable to this. SW did give a list of SNF's that work w/[facility], in pt's preferred geographic area, complete w/quality and resource use data. SW reviewed the list w/pt and son, pt would likely be agreeable to [facility]. She wants to go home at this time however. Pt would like to go home today. Son has to work this evening and would like to be present when pt meets w/hospice. SW explained will check w/physician and w/hospice to see if it can be set up for pt to go home today, and meet w/hospice tomorrow. Pt and son both in agreement with this plan. Son states the oxygen was already delivered so pt has this at home already. SW spoke w/physician, she is fine w/pt returning home today and meeting w/hospice tomorrow. SW called hospice, awaiting a call back. SW will continue to follow. GIGI Cason
--- NOTE | 2023-08-24 15:34 | NURSING ---
I spoke with Kim at [facility] to let them know the pt will d/c today. I also faxed over the paperwrok.
--- NOTE | 2023-08-24 16:00 | CASEMGMT ---
Social Work SW reviewed chart to see what services pt had prior to the hospice referral. Pt has aide services through [facility]. SW left a message for Nata Kuhn to let her know pt is going home w/palliative today and not hospice. SW called son Juan C again to check if pt still has HHC through [facility], pt does not. No further needs, pt home today w/[facility] services and palliative care. GIGI Cason
[2023-08-24] MEDS: predniSONE 20 MG Tablet 60 MG PO (19:05)
== END 2023-08-24 19:12 | disposition hospice, home (50) | DRG 189 ==
LOC: ED 16:04 → PCU 18:03
PROVIDERS: Admitting Provider Hospitalist; Emergency Provider Emergency Medicine; Visit Provider Internal Medicine
DX: J96.21 Acute and chronic respiratory failure with hypoxia (principal); E43 Unspecified severe protein-calorie malnutrition; J44.1 Chronic obstructive pulmonary disease with (acute) exacerbation; I47.19 Other supraventricular tachycardia; Z68.1 Body mass index [BMI] 19.9 or less, adult; J84.10 Pulmonary fibrosis, unspecified; J96.22 Acute and chronic respiratory failure with hypercapnia; F32.A Depression, unspecified; G25.81 Restless legs syndrome; K21.9 Gastro-esophageal reflux disease without esophagitis; G62.9 Polyneuropathy, unspecified; E78.00 Pure hypercholesterolemia, unspecified; F17.210 Nicotine dependence, cigarettes, uncomplicated; F41.9 Anxiety disorder, unspecified; Z66 Do not resuscitate; Z79.51 Long term (current) use of inhaled steroids; Z79.82 Long term (current) use of aspirin; Z51.5 Encounter for palliative care; Z80.0 Family history of malignant neoplasm of digestive organs; Z86.711 Personal history of pulmonary embolism; M81.0 Age-related osteoporosis without current pathological fracture
CPT/HCPCS: 36415; 36600; 71045; 80048; 82803; 83605; 83880; 84484; 85025; 85027; 85379; 87070; 87205; 87428; 87633; 92526; 92610; 93005; 94640; 94668; 94762; 97110; 97162; 97166; 97530; 97535; 99285; 99406; J7050; A4216

== ENCOUNTER 2023-09-12 11:17 | Inpatient (IN) | payer MEDICARE, MEDICAID, SELFPAY ==
[2023-09-12] VITALS (17 sets, daily range): BP systolic 85–104; BP diastolic 51–68; PULSE 85–131; RESP 15–30; TEMP 36.6–38.1; O2SAT 84–99; BMI 17.4; BMI 16.9
--- NOTE | 2023-09-12 11:49 | EKG12_ITS ---
Test Reason : DYSPNEA Blood Pressure : / mmHG Vent. Rate : 133 BPM Atrial Rate : 133 BPM P-R Int : 124 ms QRS Dur : 080 ms QT Int : 306 ms P-R-T Axes : 081 033 073 degrees QTc Int : 455 ms Sinus tachycardia with Premature supraventricular complexes Right atrial enlargement Pulmonary disease pattern Abnormal ECG Confirmed by YANNICK RAMÍREZ, EMERALD ([id number]), film or videotape editor ELMIRA SOLIZ ([id number]) on 09/13/2023 1:36:44 PM Referred By: Confirmed By:EMERALD LANIER MD
--- NOTE | 2023-09-12 11:51 | EDS_ITS ---
HPI History of Present Illness Chief Complaint: Shortness of Breath Informant: patient Onset/Context/Timing Onset: Days Context: gradual Timing: Continuous Quality: Positive for Wheezing Current Severity: Moderate Worsened by: Exertion and Coughing Relieved by: Oxygen Associated Symptoms cough, fever and green sputum Chest Pain: Positive for None Narrative Narrative: 78-year-old female history of COPD on 3 L of oxygen at home, anemia, prior PE reportedly on aspirin. States that she has had a fever and URI symptoms the last several days with increasing cough of dark sputum and increasing wheezing. She denies any chest pain. She denies any vomiting or diarrhea. She denies any dysuria. PE Risk Factors: Positive for Prior DVT or PE; Negative for Cancer, OCP + Smoking + > 35, Recent immobilization, Recent surgery or Recent travel Prior similar symptoms: Yes Recent Illness/Hospitalization: No PFSH PFSH Medical History Anxiety Bleeding disorder cataracts COPD (chronic obstructive pulmonary disease) Gout High cholesterol Hx of gallstones Migraines Neuropathy On home O2 Osteoarthritis Osteoporosis Sleep apnea Smoker Home Medications famotidine 40 mg tablet 40 mg PO DAILY GERD 10/24/18 [History Last Taken 08/18/23] albuterol sulfate 1.25 mg/3 mL solution for nebulization 1.25 mg inhalation Q4H sob 04/04/21 [History Last Taken 04/03/21] citalopram 20 mg tablet 20 mg PO QHS mood 04/04/21 [History Last Taken 08/18/23] fluticasone furoate 200 mcg-vilanterol 25 mcg/dose inhalation powder (Breo Ellipta) 1 inh inhalation BID copd 04/04/21 [History Last Taken 08/18/23] loratadine 10 mg tablet 10 mg PO DAILY allergies 04/04/21 [History Last Taken 08/18/23] dlwkyarqnqpu-yewzcbfr-hfbmgj tablet 1 tab PO DAILY supplement 04/04/21 [History Last Taken 08/18/23] aspirin 81 mg tablet,delayed release 81 mg PO DAILY heart health 04/20/21 [History Last Taken 08/18/23] ferrous sulfate 325 mg (65 mg iron) tablet (FeroSul) 325 mg PO BID Iron Supplement 05/15/23 [History Last Taken 08/18/23] fluticasone propionate 50 mcg/actuation nasal spray,suspension 1 spray intranasal BID Allergies 05/15/23 [History Last Taken 08/18/23] sennosides 8.6 mg-docusate sodium 50 mg tablet (2-in-1 Laxative) 2 tab-cap PO QHS stool softener 05/15/23 [History Last Taken 08/18/23] ipratropium 0.5 mg-albuterol 3 mg (2.5 mg base)/3 mL nebulization soln 3 ml inhalation Q4HWA.RT breathing 14 days #180 mL 05/21/23 [Rx Last Taken Unknown] gabapentin 300 mg capsule 300 mg PO Q12H pain 08/19/23 [History Last Taken 08/18/23] omeprazole 20 mg capsule,delayed release 20 mg PO DAILY reflux 08/19/23 [History Last Taken 08/18/23] ropinirole 0.5 mg tablet 0.5 mg PO DAILY restless legs 08/19/23 [History Last Taken 08/18/23] tiotropium bromide 2.5 mcg/actuation mist for inhalation (Spiriva Respimat) 2 inh inhalation Q24H breathing 08/19/23 [History Last Taken 08/18/23] furosemide 40 mg tablet 20 mg (1/2 x 40 mg) PO DAILY diuretic #30 tabs 08/23/23 [Rx Last Taken 08/18/23] nicotine 14 mg/24 hr daily transdermal patch 14 mg transdermal DAILY 30 days #28 ea 08/23/23 [Rx Last Taken Unknown] potassium chloride 10 mEq capsule,extended release 10 meq PO DAILY #30 caps 08/23/23 [Rx Last Taken Unknown] prednisone 20 mg tablet See Taper PO BREAKFAST #32 tabs 08/23/23 [Rx Last Taken Unknown] Allergy/AdvReac Type Severity Reaction Status Date / Time bupropion HCl Allergy Anaphylaxis Verified 08/19/23 12:57 [From Wellbutrin] cephalexin monohydrate Allergy Anaphylaxis Verified 08/19/23 12:57 [From Keflex] levofloxacin Allergy Anaphylaxis Verified 08/19/23 12:57 Penicillins [PCN] Allergy Anaphylaxis Verified 08/19/23 12:57 Milk Containing Products AdvReac phlegm Verified 08/19/23 12:57 (Dairy) [Milk Containing Products] Family History Father Colon cancer Heart disease Surgical History History of appendectomy History of cholecystectomy History of hysterectomy History of incisional hernia repair Status post hip surgery Social History Smoking Status: Current some day smoker tobacco type: cigarettes alcohol intake: never substance use type: does not use ROS ROS ED ROS Narrative Cough, fever, shortness of breath and generalized weakness. Review of Systems ROS Unobtainable: Denies due to encephalopathy Constitutional Constitutional ED: Reports fever(s); Denies chills Eyes Eyes: Denies blurry vision ENT ENT ED: Denies ear pain Cardiovascular Cardiovascular: Denies chest pain Respiratory/Chest Respiratory/Chest: Reports cough, dyspnea, dyspnea on exertion and sputum Gastrointestinal Gastrointestinal: Denies abdominal pain Genitourinary Genitourinary ED: Denies dysuria or hematuria Musculoskeletal Musculoskeletal: Denies arthralgias Integumentary Denies abscess Neurologic Neurologic: Denies headache(s) Psychiatric Psychiatric: Denies anxiety or depression Endocrine Endocrinology: Denies cold intolerance Hematologic/Lymphatic Hematologic/Lymphatic: Denies easy bleeding or easy bruising Allergic/Immunologic Allergic/Immunologic ED: Denies mouth swelling or tongue swelling EXAM Physical Exam Narrative Exam Narrative: 78-year-old female clinically looks ill she has increased respiratory rate and tachycardic. Borderline blood pressure around 100. Clinically looks dehydrated. No family in the room as of this time. Patient is awake alert. She is answering questions and following commands. H EENT exam dry mucous membranes. Pupils round reactive light. Normal speech. Neck nontender no JVD. No lymphadenopathy. Lungs increased respiratory rate. Expiratory wheezes. Coarse breath sounds. Heart tachycardic rate about 130 no murmur. Chest wall and ribs nontender. No subcu air. Abdomen soft nontender. Back nontender. Moving all 4 extremities. Calves are nontender without edema or cords. Neurologically she is awake and alert with no focal motor deficits. Const Vital Signs: 09/12/23 11:20 09/12/23 11:22 09/12/23 11:26 Temperature 100.5 F H 100.5 F H Temperature Source Temporal Temporal Pulse Rate 131 H 131 H Respiratory Rate 20 H 22 H Respiratory Effort Short of Breath Labored Respiratory Depth Shallow Respiratory Pattern Tachypnea Blood Pressure 104/63 104/63 Blood Pressure Mean 76 76 Pulse Ox 96 86 Oxygen Delivery Method Non-Rebreather Nasal Cannula Venturi Mask Oxygen Flow Rate (L/min) 15 5 15 09/12/23 11:30 09/12/23 11:35 09/12/23 11:38 Temperature 100.5 F H Temperature Source Temporal Pulse Rate 129 H Respiratory Rate 24 H Respiratory Effort Respiratory Depth Respiratory Pattern Blood Pressure 104/63 Blood Pressure Mean 76 Pulse Ox 87 89 90 Oxygen Delivery Method Venturi Mask High Flow High Flow Oxygen Flow Rate (L/min) 15 09/12/23 12:53 09/12/23 12:53 09/12/23 12:15 Temperature 98.5 F 98.5 F Temperature Source Oral Oral Pulse Rate 114 H 119 H 128 H Respiratory Rate 15 17 30 H Respiratory Effort Respiratory Depth Respiratory Pattern Tachypnea Blood Pressure 85/65 L 85/65 L Blood Pressure Mean 71 71 Pulse Ox 84 84 Oxygen Delivery Method High Flow High Flow Oxygen Flow Rate (L/min) 15 09/12/23 12:15 Temperature Temperature Source Pulse Rate Respiratory Rate Respiratory Effort Respiratory Depth Respiratory Pattern Blood Pressure Blood Pressure Mean Pulse Ox 93 Oxygen Delivery Method Nasal Cannula Oxygen Flow Rate (L/min) 15 Positive well nourished and well developed; Negative for obese, cachectic, contractures or unkempt General Appearance ED: well developed; Negative for unkempt, cachectic, contractures, NAD or pallor Nutritional Appearance: Negative for cachectic or obese HEENT Reports dry mucous membranes; Denies moist mucous membranes atraumatic; Negative for trauma or tenderness Mouth ED: Yes dry mucous membranes Mouth: dry mucous membranes Eyes PERRL and EOMs intact bilaterally General Eye ED: Negative for pale conjunctiva or scleral icterus Neck no lymphadenopathy, supple, no meningeal signs and no JVD General: Negative for tenderness Lymph Lymphatic: Negative for other Chest Wall Chest: Negative for other Resp No normal respiratory effort and No clear to auscultation bilaterally Resp Narrative: Increased respiratory rate. Expiratory wheezes. Equal symmetrical. Coarse breath sounds. Auscultation: wheezes; Negative for rales or rhonchi Cardio regular rhythm, S1 normal heart sound, S2 normal heart sound and no murmurs; Negative for regular rate Rate: tachycardic Rhythm: Negative for abnormal rhythm GI non-tender, non-distended and no masses Inspection: Negative for other Auscultation: normoactive bowel sounds Palpation: soft; Negative for tender or guarding Bladder / Kidney Exam: No other Back/Spine no CVA tenderness and normal to inspection General Back: Negative for CVA tenderness Extremity normal to inspection General Extremety ED: Negative for edema or tenderness General Extremity: Negative for edema Neuro oriented x3 and CN's II-XII intact bilaterally Sensorium / Orientation: alert, oriented to person, oriented to place and oriented to time; Negative for orientation impaired, confused, lethargic or stuporous Speech: speech normal Motor Exam: strength 5/5 throughout Psych mental status grossly normal Appearance: Negative for unkempt Attitude: No agitated Mood & Affect: Negative for depressed, anxious or tearful Thought Process: normal thought process Skin no wounds General Skin Exam: Negative for jaundice or pallor Lesions: no lesions Rashes: no rashes Trauma: Negative for abrasion or laceration MDM MDM MDM Narrative Medical decision making narrative: 78-year-old most likely URI versus pneumonia with exacerbation of flare. She also clinical looks dehydrated. Treated with IV fluids. Septic workup along with COVID, influenza and RSV. Treated with aerosols and IV steroids. Repeat exam no significant change from the patient's initial presentation. Her blood pressures running between 90 and 100 and she states it normally runs low. She was given a liter of fluid. She will be treated for possible pneumonia with Rocephin and Zithromax. Blood cultures have been sent. She underwent septic workup. I will speak to the hospitalist about admission. I did speak to the patient she does not want intubated or CPR if she gets significantly worse. She does have a living well and a DNR status. History & Record Review Discussion w/independent historian: Patient Additional record(s) reviewed:: Prior inpatient record, Prior outpatient record, Prior ED visit and Prior labs Lab Data Attestation: I reviewed the patient's lab results. Lab results narrative: Patient has an elevated white count of 20,000. H&H 9.8 and 32. Platelets 301. PT/INR PTT are 13, 1 and 22. Electrolytes show gap of 4. BUN 24 creatinine 0.3. Liver enzymes are unremarkable. Lactic acid is normal at 1.2. Urinalysis shows no red cells. 5-10 white cells 1+ bacteria. Ketones and no nitrates. Both the flu test and rapid COVID test were negative. Labs: Laboratory Results - last 24 hr 09/12/23 09/12/23 11:30 12:50 WBC 20.1 H RBC 3.30 L Hgb 9.8 L Hct 32.3 L MCV 97.9 MCH 29.7 MCHC 30.3 L RDW Std Deviation 63.5 H RDW Coeff of Jacinto 17.8 H Plt Count 301 MPV 11.0 Immature Gran % (Auto) 0.600 Neut % (Auto) 92.1 H Lymph % (Auto) 2.7 L Winn % (Auto) 3.8 Eos % (Auto) 0.0 Baso % (Auto) 0.8 Absolute Neuts (auto) 18.5 H Absolute Lymphs (auto) 0.54 L Nucleated RBC % 0 Differential Comment SCANNED PT 13.9 INR 1.1 APTT 22.9 L Sodium 145 Potassium 4.0 Chloride 96 L Carbon Dioxide > 45.0 H* Anion Gap TNP BUN 24 H Creatinine 0.30 L Estim Creat Clear Calc 30.12 Est GFR (MDRD) Af Amer 274 Est GFR (MDRD) Non-Af 227 BUN/Creatinine Ratio 79.2 H Glucose 106 Lactic Acid 1.2 Calcium 9.6 Total Bilirubin 0.70 AST 15 ALT 19 Alkaline Phosphatase 101 Total Protein 6.5 Albumin 2.0 L Globulin 4.5 H Albumin/Globulin Ratio 0.4 L Urine Color Yellow Urine Clarity Clear Urine pH 8.0 Ur Specific [place] 1.015 Urine Protein 30 H Urine Glucose (UA) Normal Urine Ketones 150 A* Urine Occult Blood Negative Urine Nitrite Negative Urine Bilirubin 1 H Urine Urobilinogen 4 H Ur Leukocyte Esterase 100 H Urine RBC 0 SEEN Urine WBC 5-10 SEEN Ur Squamous Epith Cells 0-5 SEEN Urine Bacteria 1+ Urine Mucus RARE Radiography Chest X-Ray - ED: 1 View, Read by ED Physician, Heart, Mediastinum, Bony Structures and Chronic Changes Diagnostic Testing: Clinical Impression(s) from Imaging Studies Chest X-Ray 09/12/23 12:00 IMPRESSION: Bilateral pulmonary infiltrates worse in the left hemithorax with a small left pleural effusion. Electronically Signed: Mao Rodgers MD at 12:27 EST , Chest x-ray shows significant chronic obstructive pulmonary disease. Left p leural effusion. Cannot rule out infiltrates. It is a portable film interpreted both by myself and the radiologist radiologist believes there may be bilateral infiltrates. Rhythm Strip Rhythm Strip: Sinus Tach Rate: 133 Ectopy: None EKG Initial EKG: Attestation: I personally reviewed and interpreted this EKG as follows: Interpretation: No Acute Injury Pattern and Sinus Tachycardia Comments: Sinus tachycardia rate of 133. No acute signs of [place] or ischemia. Critical Care Time Critical Care Time: Yes Critical care time (excluding procedures): 30-74 minutes, Including time spent:, Discussing w/Patient &/or Family/Wincher, Discussing w/Consultants, Arranging Admission or Transfer, Performing Direct Patient Care at Bedside and - (34 min) Discharge Plan Dx/Rx/DC Orders Clinical Impression: Acute respiratory distress, Hypoxia, COPD exacerbation, Pneumonia, Chronic anemia, Anemia in chronic illness Disposition Disposition: Acute Care Hospital [facility]
[2023-09-12 12:00] LABS: Absolute Lymphocyte Count 0.54 X10^3/uL (0.83-4.51); Absolute Neutrophil Count 18.5 X10^3/uL (2.0-7.7); Basophil# 0.16 X10^3/uL; Basophil% 0.8 % (0-1); Eosinophil# 0.01 X10^3/uL; Hematocrit 32.3 % (37-47); Hemoglobin 9.8 g/dL (12.0-15.0); Lymphocyte # 0.54 X10^3/ul (0.83-4.51); Lymphocyte % 2.7 % (19-41); Mean Corp Hgb Conc 30.3 g/dL (32-36); Mean Corpuscular Hgb 29.7 pg (27.0-32.0); Mean Corpuscular Volume 97.9 fL (81-99); Monocyte# 0.76 X10^3/uL; Monocyte% 3.8 % (0-10); NRBC Flagged by Analyzer 0 % (0-5); Neutrophil # 18.51 X10^3/uL (2.7-7.7); Neutrophil % 92.1 % (47-70); POSITIVE DIFFERENTIAL YES; POSITIVE MORPHOLOGY YES; Platelet Count 301 K/mm3 (150-450); RBC Distribution Width CV 17.8 % (11.6-14.6); RBC Distribution Width SD 63.5 fl (35.1-43.9); White Blood Count 20.1 K/mm3 (4.4-11.0)
--- NOTE | 2023-09-12 12:00 | RAD_ITS ---
STUDY: X-RAY CHEST REASON FOR EXAM: Female, 78 years old. Cough TECHNIQUE: Single AP portable view of the chest. COMPARISON: Comparison is made with prior study of August 19, 2023. FINDINGS: EKG electrodes are seen. Hyperinflation and diffuse bilateral patchy infiltrates worse in the left hemithorax. Blunting of the left costophrenic angle. Normal size heart. Normal mediastinum and jovanny. Normal visualized pulmonary arteries. Normal visualized aortic arch and descending thoracic aorta. Normal visualized thoracic spine. Normal visualized ribs, clavicles, and shoulders. There is no demonstrated abnormality of the visualized soft tissue structures of the upper abdomen. RAD/Chest 1 View (Portable) IMPRESSION: Bilateral pulmonary infiltrates worse in the left hemithorax with a small left pleural effusion. Electronically Signed: Mao Rodgers MD at 12:27 [facility] ,
[2023-09-12 12:01] LABS: Differential Indicated SCAN CRITERIA MET
[2023-09-12 12:04] LABS: International Normalized Ratio 1.1; Partial Thromboplast Time 22.9 Seconds (24.1-36.2); Prothrombin Time (Protime)PT. 13.9 SECONDS (11.7-14.9)
[2023-09-12] MEDS: 0.9% Normal Saline (1000mL) 1,000 ML 999 ML IV (12:04)
[2023-09-12] MEDS: Acetaminophen 325 MG Tablet 650 MG PO (12:06)
[2023-09-12] MEDS: MethylPREDNISolone 125 MG/2 ML Vial IV (12:06)
[2023-09-12] MEDS: Ipratropium/Albuterol Sulfate 3 ML AMPUL.NEB INHALATION ×2 (12:13→19:50)
[2023-09-12 12:14] LABS: Differential Comment SCANNED
[2023-09-12 12:23] LABS: Lactic Acid 1.2 mmol/L (0.4-1.9)
[2023-09-12 12:36] LABS: ALB/GLOB Ratio 0.4 RATIO (0.9-2.4); AST(SGOT) 15 U/L (15-37); Alanine Aminotransfer ALT/SGPT 19 U/L (13-56); Alkaline Phosphatase 101 U/L (45-117); BUN 24 mg/dL (7-18); BUN/Creat Ratio 79.2 RATIO (10-20); Calcium,Total 9.6 mg/dL (8.5-10.1); Carbon Dioxide > 45.0 mmol/L (21.0-32.0); Chloride 96 mmol/L (98-107); EST Glomerular Filtration Rate 227 mL/min (>60); Est Glom Filt Rate - Afr Amer 274 mL/min (>60); Estimated Creatinine Clearance 30.12 ml/min; Globulin 4.5 g/dL (2.2-4.2); Glucose 106 mg/dL (74-106); Protein, Total 6.5 g/dL (6.4-8.2); Sodium Level 145 mmol/L (136-145)
[2023-09-12 12:56] LABS: Red Blood Cells-Urine 0 SEEN /hpf (0-5)
--- OUTSIDE RECORDS SUMMARY | 2023-09-12 12:56 | XMS RPT_ITS | CCD ---
Author Name Unknown Address [address] [place] [address] Organization [facility] Care Team Providers Care Family Law Specialist Name Role Phone RICCARDO FREEMAN MD Attending Unavailable RICCARDO FREEMAN MD Primary Care Unavailable RICCARDO FREEMAN MD Admitting Unavailable Allergies Allergy Classification Reported Allergen(s) Allergy Type Date of Onset Reaction(s) Facility Cephalosporins (antibiotic) (1 source) Cephalexin Drug Allergy [facility] Repository Penicillins (antibiotic) (1 source) Penicillins (Antibiotic) Drug Allergy [facility] Repository Problems Problem Classification Problem Date Documented Date Episodic/Chronic Fracture of neck of femur (hip) (3 sources) Nondisplaced intertrochanteric fracture of right femur, initial encounter for closed fracture; Translations: [Nondisplaced intertrochanteric fracture of right femur, initial encounter for closed fracture] Onset: 03-27-2021 Episodic Results Test Name Value Interpretation Reference Range Facil ity Encounters Encounter Date Encounter Type Care Provider Facility Start: 03-27-2021 End: 03-29-2021 Evaluation and management of inpatient [facility] Payers Date Payer Category Payer Unknown [id number] Unknown [id number] Clinical Note 04-11-2021 Note Date & Type Note Facility 04-11-2021 [facility] PROGRESS NOTE NAME ACCOUNT SEX AGE ADMIT DISCHARGE PT MED. RECORD# NUMBER DATE DATE TYPE DAVID [id number] F 75 03/27/21 1 LISETTE [id number] ROOM: [facility] DATE OF : 1945 DICTATING PHYSICIAN: Natividad Rodrigues DATE OF SERVICE: March 28, 2021 ATTENDING ORTHOPEDIC SURGEON: Dr. Geovanny Pearl. SUBJECTIVE: This is a 75-year-old female who underwent open reduction/internal fixation of the right hip fracture yesterday. She has not been up with physical therapy yet. She has been quite painful. She is receiving one Percocet every 4 hours. Her nurse states that she is not showing any signs of mental status changes. She is tolerating the medication well, but it is not fully controlling her pain. She is using oxygen per mask. She uses oxygen at home. She currently denies chest pain, shortness of breath, dizziness or calf pain. OBJECTIVE: Vitals: Temperature is 97.9, pulse 99, respirations 16, blood pressure 122/65, and spO2 of 92% on 4 liters per mask. The patient is alert and oriented x3. She is in no acute distress at rest. She is breathing easily without respiratory distress. Inspection of her right hip is with a dry, waterproof dressing that is intact without active drainage, erythema, warmth or signs of infection. Negative Homans bilaterally without signs of DVT. Pedal pulses are present at +2 bilaterally. The patient is able to actively plantar and dorsiflex the bilateral feet against resistance. She still has an indwelling Hood catheter. DIAGNOSTIC DATA: Blood glucose is elevated at 144. White blood cell count is elevated at 11.5, hemoglobin 11.1, hematocrit 33.5, and platelet count 221,000. ASSESSMENT/PLAN: 1. Status post open reduction/internal fixation of right hip, postoperative day #1. 2. We will adjust her current Percocet dose, increasing it to Percocet 5/325 mg one or two p.o. every 4 hours p.r.n. pain. The dose is to immediately be decreased if we start to see changes in her mental status. 3. Deep venous thrombosis prophylaxis with bilateral TEDs, SCDs and Xarelto 10 mg daily for 2 weeks postsurgically. 4. Begin PT/OT and weightbearing as tolerated on the right lower extremity with a walker. 5. Leukocytosis, afebrile, without acute signs of infection, likely resulting from acute stress response. Anticipate resolution over the next couple of days. Continue to monitor. 6. Encourage incentive spirometry. Page 1 of 2 LISETTE HERNANDEZ Progress Note LISETTE HERNANDEZ : 1945 7. Continue discharge planning with case management. 8. Continue postoperative medical management per Dr. Hendrickson. 9. The patient is orthopedically stable and okay for discharge to home or a assisted facility when cleared medically, having adequate pain control, and doing well with physical therapy. We will plan to see her back in the office in 2 weeks for reassessment, staple removal, and x-rays of the right hip. Please do not hesitate to contact us with any further orthopedic concerns. Dictated By: Natividad Rodrigues PA-C 03/28/21 07:51 JOB #: [id number] Transcribed By: christine 03/28/21 08:17 Electronically signed by: E-sign Natividad FORBES 04/11/21 07:44 Page 2 of 2 LISETTE HERNANDEZ Progress Note [facility] Clinical Note 04-10-2021 Note Date & Type Note Facility 04-10-2021 Note [facility] CONSULTATION REPORT NAME ACCOUNT SEX AGE ADMIT DISCHARGE PT MED. RECORD# NUMBER DATE DATE TYPE DAVID [id number] F 75 03/27/2021 1 LISETTE [id number] ROOM: [facility] DATE OF : 1945 DICTATING PHYSICIAN: Geovanny Pearl DATE OF CONSULTATION: March 27, 2021 REQUESTING PHYSICIAN: Dr. Yobani Hendrickson. REASON FOR CONSULTATION: Right hip pain. HISTORY OF PRESENT ILLNESS: This is a 75-year-old female with a history of severe COPD. She also had a hernia repair one month ago. She reports tobacco use. She was watching fireworks last night when she had a mechanical fall. She denies any lightheadedness or dizziness. She is a community ambulator who lives at home by herself. She now reports 10/10 pain, worse with motion and better with immobilization. It is located in the right hip and thigh. It is a dully, achy pain. She was brought to the Emergency Room last night, found to have an intertrochanteric hip fracture, and was admitted and cleared overnight. PAST MEDICAL HISTORY: Anxiety/depression, acid reflux, neuropathy, and tobacco dependency. PAST SURGICAL HISTORY: Recent abdominal hernia repair, total hysterectomy with bilateral oophorectomy, appendectomy, cholecystectomy, and tonsillectomy. CURRENT MEDICATIONS: Her list of medications was reviewed. FAMILY HISTORY: Noncontributory. SOCIAL HISTORY: She is a half pack a day cigarette smoker. She lives at home and is a community ambulator. REVIEW OF SYSTEMS: Outside of what is mentioned in the HPI is negative. Her COPD does cause shortness of breath. PHYSICAL EXAMINATION: General appearance: The patient is a cachectic-appearing female, alert and oriented x3. Vital signs are stable. HEENT is normocephalic. Neck is supple. No JVD. Lungs with unlabored breathing. Heart: Regular pulse rate. Abdomen: Nondistended. Previous incision appears to be healing well. Extremities: Right lower extremity is shortened and rotated. Neurovascularly intact distally. Pain with log roll. Page 1 of 2 LISETTE HERNANDEZ Donor Relations Associate Report LISETTE HERNANDEZ : 1945 DIAGNOSTIC DATA: X-rays show a right displaced intertrochanteric fracture. ASSESSMENT: Right intertrochanteric hip fracture. RECOMMENDATIONS: The patient was admitted to the hospital and cleared by Medicine. I did discuss with her the natural history of intertrochanteric hip fractures, including treatment options, which include but are not limited to nonoperative treatment, cephalomedullary nail. The risks and benefits of a cephalomedullary nail, which was recommended for the patient, were discussed with the patient including but not limited to blood loss, DVT, PE, neurovascular damage, infection, and risks of anesthesia including loss of life. The patient also understands that with fractures nonunion, malunion, and hardware failure are possible as well. The patient demonstrated an understanding and wishes to proceed with surgery. The patient is NPO right now. Clindamycin is ordered on-call to the operating room. Consent has been obtained. The patient will move forward with surgery this morning. Dictated By: Geovanny Pearl MD 03/27/2021 06:57 JOB #: [id number] Transcribed By: christine 03/27/2021 07:15 Electronically signed by: Dr. Geovanny Pearl MD 04/10/21 07:58 Page 2 of 2 LISETTE HERNANDEZ Donor Relations Associate Report [facility] History and physical note 04-06-2021 Note Date & Type Note Facility 04-06-2021 Note [facility] HISTORY & PHYSICAL NAME ACCOUNT SEX AGE ADMIT DISCHARGE PT MED. RECORD# NUMBER DATE DATE TYPE DAVID [id number] F 75 03/26/21 1 LISETTE [id number] ROOM: [facility] DATE OF : [birth year] DICTATING PHYSICIAN: Yobani Hendrickson ADMITTING DIAGNOSIS: Right hip fracture. CHIEF COMPLAINT: Right hip pain. HISTORY OF PRESENT ILLNESS: This 75-year-old lady has severe COPD and was in her usual state of health. The patient came from watching the parade in the driveway when she tripped and fell and landed on her hip. She could not stand up and she was brought to the emergency room and was found to have a right hip fracture. When I saw the patient myself, her only complaint was basically the right hip pain. She was awake, alert and able to give me adequate history. The patient has significant pain with any motion which affects the hip area. The pain is sharp. She has been medicated and is somewhat better. She has already placed in. The patient uses oxygen at home. According to her, it is mostly on an as-needed basis, up to 3 liters. No recent COPD exacerbation. She had a recent hernia surgery and she did well. No recent steroid use. PAST MEDICAL HISTORY: (1) COPD. (2) Anxiety and depression. (3) Acid reflux disease. (4) Neuropathy. PAST SURGICAL HISTORY: (1) Recent abdominal hernia repair. (2) Total hysterectomy with bilateral oophorectomy. (3) Appendectomy, incidental. (4) Cholecystectomy. (5) Tonsillectomy. MEDICATIONS: She does not have a list of current medications. Page 1 of 3 LISETTE HERNANDEZ History & Physical LISETTE HERNANDEZ :1945 FAMILY HISTORY: Both parents are . Father of congestive heart failure and COPD. Mother from pulmonary emboli. SOCIAL HISTORY: Long-term smoker. She smokes about 1/2 pack of cigarettes per day. She occasionally drinks alcohol. REVIEW OF SYSTEMS: The patient denies any fever, chills, night sweats. No weight loss or pain. No headache, blurry vision, earache or sore throat. No neck pain. No chest pain. No shortness of breath. No cough or phlegm production. No nausea, vomiting, abdominal pain, diarrhea, constipation, difficulty with urination, increased frequency or burning. No skin rash. PHYSICAL EXAMINATION GENERAL APPEARANCE: This is a pleasant 75-year-old lady who is alert and had oxygen on. VITAL SIGNS: Vital signs reported in chart. HEENT: Normocephalic, atraumatic. Pupils are equal, round and reactive. Tongue to midline. NECK: Supple. LUNGS: Increased AP diameter, but otherwise clear to auscultation. HEART: Regular. ABDOMEN: Soft. EXTREMITIES: No edema. IMPRESSION: 1. Right hip fracture. 2. Chronic obstructive pulmonary disease, fairly stable. No recent exacerbation. 3. Anxiety and depression. 4. Acid reflux disease, stable. PLAN: 1. We will admit the patient. 2. Ortho to consult for surgical repair of hip, necessary. 3. Aerosol treatment. 4. We will find the rest of her medications at home to be ordered. 5. IV fluid. 6. NPO for now. Page 2 of 3 LISETTE HERNANDEZ History & Physical LISETTE HERNANDEZ :1945 The above was explained to the patient and she is agreeable with the above plan. The patient can proceed with planned surgery, preferably under spinal, but with her COPD being stable, anesthesia is still acceptable. Dictated By: Yobani Hendrickson MD 03/27/21 01:33 JOB #: [id number] Transcribed By: [email or web address] 03/27/21 04:31 Electronically signed by: E-Sign: YOBANI HENDRICKSON MD 04/06/21 11:35 Update to H&P: [ ] No changes: I have examined the patient and reviewed the H&P and there are no changes. [ ] As previously dictated with the following changes: PHYSICIAN SIGNATURE: TIME: DATE: Page 3 of 3 LISETTE HERNANDEZ History & Physical [facility] Summary Purpose Family History No Family History Records Found Advance Directives No Advanced Directives Records Found Additional Source Comments INFORMATION SOURCE (unrecogn ized section and content) FOR RECORDS PERTAINING TO PATIENTS WHO ARE OR HAVE BEEN ENROLLED IN A CHEMICAL DEPENDENCY/SUBSTANCEABUSE PROGRAM, SOME INFORMATION MAY BE OMITTED. This clinical summary was aggregated from multiple sources. Caution should be exercised in using it in the provision of clinical care. This summary normalizes information from multiple sources, and as a consequence, information in this document may materially change the coding, format and clinical context of patient data. In addition, data may be omitted in some cases. CLINICAL DECISIONS SHOULD BE BASED ON THE PRIMARY CLINICAL RECORDS. [facility]. provides no warranty or guarantee of the accuracy or completeness of information in this document.
[2023-09-12 13:01] LABS: Color, Urine Yellow (Yellow); Glucose, Dipstick Normal (Normal); Leukocyte Esterase-Dipstick 100 /ul (Negative); Nitrite-Dipstick Negative (Negative); Occult Blood-Urine Negative /ul (Negative); Protein-Dipstick 30 mg/dl (Negative); Specific Gravity, Urine 1.015 (1.002-1.030); Urine Clarity Clear (Clear); Urine Urobilinogen 4 mg/dl (Normal)
[2023-09-12 13:18] LABS: Urine Bilirubin Dipstick 1 mg/dL (Negative)
[2023-09-12 13:20] LABS: Ketone-Dipstick 150 mg/dl (Negative)
[2023-09-12 13:21] LABS: Bacteria 1+ /hpf (None Seen); Squamous Epithelial Cells - UA 0-5 SEEN /hpf (5-10); White Blood Cells 5-10 SEEN /hpf (0-5)
[2023-09-12 13:22] LABS: Mucous, Urine RARE /hpf (<or=2+)
[2023-09-12] MEDS: Ceftriaxone 1 GM/50 ML BAG IV (15:36)
--- NOTE | 2023-09-12 15:46 | NURSING ---
Hospitalist called this RN to verify allergies. Patient is not a good historian so the Rocephin antibiotic was stopped because she thinks she has throat swelling and vomiting with it as a reaction. The patient received 10ml of the drug before it was stopped. Hospitalist is aware and the patient is on the monitor being watched closely.
--- OUTSIDE RECORDS SUMMARY | 2023-09-12 15:46 | XMS RPT_ITS | CCD ---
Author Name Unknown Address [address] [place] [address] Organization [facility] Care Team Providers Care Earth Science Professor Name Role Phone RICCARDO FREEMAN MD Attending Unavailable RICCARDO FREEMAN MD Primary Care Unavailable RICCARDO FREEMAN MD Admitting Unavailable Allergies Allergy Classification Reported Allergen(s) Allergy Type Date of Onset Reaction(s) Facility Cephalosporins (antibiotic) (1 source) Cephalexin Drug Allergy [facility] Repository Penicillins (antibiotic) (1 source) Penicillins (Antibiotic) Drug Allergy [facility] Repository Problems Problem Classification Problem Date Documented [...] Evaluation and management of inpatient [facility] Payers Date Payer Category Payer Unknown [id number] Unknown [id number] Clinical Note 04-11-2021 Note Date & Type Note Facility 04-11-2021 [facility] PROGRESS NOTE NAME ACCOUNT SEX AGE ADMIT DISCHARGE PT MED. RECORD# NUMBER DATE DATE TYPE DAVID [id number] F 75 03/27/21 1 LISETTE [id number] ROOM: [facility] DATE OF : 1945 DICTATING PHYSICIAN: [...] Natividad Rodrigues PA-C 03/28/21 07:51 JOB #: [id number] Transcribed By: christine 03/28/21 08:17 Electronically signed by: E-sign Natividad FORBES 04/11/21 07:44 Page 2 of 2 LISETTE HERNANDEZ Progress Note [facility] Clinical Note 04-10-2021 Note Date & Type Note Facility 04-10-2021 Note [facility] CONSULTATION REPORT NAME ACCOUNT SEX AGE ADMIT DISCHARGE PT MED. RECORD# NUMBER DATE DATE TYPE DAVID [id number] F 75 03/27/2021 1 LISETTE [id number] ROOM: [facility] DATE OF : 1945 DICTATING PHYSICIAN: [...] roll. Page 1 of 2 LISETTE HERNANDEZ Printer'S Assistant Report LISETTE HERNANDEZ : 1945 DIAGNOSTIC DATA: [...] Geovanny Pearl MD 03/27/2021 06:57 JOB #: [id number] Transcribed By: christine 03/27/2021 07:15 Electronically signed by: Dr. Geovanny Pearl MD 04/10/21 07:58 Page 2 of 2 LISETTE HERNANDEZ Printer'S Assistant Report [facility] History and physical note 04-06-2021 Note Date & Type Note Facility 04-06-2021 Note [facility] HISTORY & PHYSICAL NAME ACCOUNT SEX AGE ADMIT DISCHARGE PT MED. RECORD# NUMBER DATE DATE TYPE DAVID [id number] F 75 03/26/21 1 LISETTE [id number] ROOM: [facility] DATE OF : [birth year] DICTATING PHYSICIAN: [...] Yobani Hendrickson MD 03/27/21 01:33 JOB #: [id number] Transcribed By: [email or web address] 03/27/21 04:31 Electronically signed by: E-Sign: YOBANI HENDRICKSON MD 04/06/21 11:35 Update to H&P: [ ] No changes: I have examined the patient and reviewed the H&P and there are no changes. [ ] As previously dictated with the following changes: PHYSICIAN SIGNATURE: TIME: DATE: Page 3 of 3 LISETTE HERNANDEZ History & Physical [facility] Summary Purpose Family History No Family History [...] BE BASED ON THE PRIMARY CLINICAL RECORDS. [facility]. provides no warranty or guarantee of the accuracy or completeness of information in this document.
[2023-09-12] MEDS: Azithromycin 500 MG in Dextrose 5%-Water (250mL Bag) 250 ML 250 MG IV (16:12)
--- NOTE | 2023-09-12 17:07 | HP.PCM.HOS_ITS ---
HPI - General General Date of Admission: 09/12/23 Date of Service: 09/12/23 Chief Complaint: Shortness of breath HPI Narrative LISETTE HERNANDEZ, is a 78 F who presents to the emergency room at [facility] with complaints of increasing shortness of breath over the last 2 days, she is also had a productive cough productive of green and yellow sputum. Patient is on home oxygen at 3 L chronically, she sees Dr. Koenig periodically- she states she has not seen him for quite some time. Patient still continues to smoke at home. Workup in the emergency room included a CBC which showed an elevated white blood cell count at 20,000, hemoglobin was 9.8, chemistry panel was remarkable for chloride of 96, BUN of 24, and a bicarb above 45. Urinalysis revealed 5-10 WBCs, +1 urine bacteria was noted Patient's chest x-ray showed bilateral pulmonary infiltrates worse in the left hemithorax with a small left pleural effusion. Patient was given IV Zithromax in the emergency room, she required 6 L to maintain her pulse ox above 90%. The emergency room physician had a conversation with the patient and she requested to be a DNR no intubation. Patient will be admitted to [place] [address] for community-acquired pneumonia, I have decided to place her on meropenem due to her allergies listed. Patient will receive aerosol treatments and her pulse ox will be monitored. PFSH Medical History Anxiety Bleeding disorder cataracts COPD (chronic obstructive pulmonary disease) Gout High cholesterol Hx of gallstones Migraines Neuropathy On home O2 Osteoarthritis Osteoporosis Sleep apnea Smoker Home Medications famotidine 40 mg tablet 40 mg PO DAILY GERD 10/24/18 [History Last Taken 08/18/23] albuterol sulfate 1.25 mg/3 mL solution for nebulization 1.25 mg inhalation Q4H sob 04/04/21 [History Last Taken 04/03/21] citalopram 20 mg tablet 20 mg PO QHS mood 04/04/21 [History Last Taken 08/18/23] fluticasone furoate 200 mcg-vilanterol 25 mcg/dose inhalation powder (Breo Ellipta) 1 inh inhalation BID copd 04/04/21 [History Last Taken 08/18/23] loratadine 10 mg tablet 10 mg PO DAILY allergies 04/04/21 [History Last Taken 08/18/23] xdryruaunqwp-omfsmirf-xybtot tablet 1 tab PO DAILY supplement 04/04/21 [History Last Taken 08/18/23] aspirin 81 mg tablet,delayed release 81 mg PO DAILY heart health 04/20/21 [History Last Taken 08/18/23] ferrous sulfate 325 mg (65 mg iron) tablet (FeroSul) 325 mg PO BID Iron Supplement 05/15/23 [History Last Taken 08/18/23] fluticasone propionate 50 mcg/actuation nasal spray,suspension 1 spray intranasal BID Allergies 05/15/23 [History Last Taken 08/18/23] sennosides 8.6 mg-docusate sodium 50 mg tablet (2-in-1 Laxative) 2 tab-cap PO QHS stool softener 05/15/23 [History Last Taken 08/18/23] ipratropium 0.5 mg-albuterol 3 mg (2.5 mg base)/3 mL nebulization soln 3 ml inhalation Q4HWA.RT breathing 14 days #180 mL 05/21/23 [Rx Last Taken Unknown] gabapentin 300 mg capsule 300 mg PO Q12H pain 08/19/23 [History Last Taken 08/18/23] omeprazole 20 mg capsule,delayed release 20 mg PO DAILY reflux 08/19/23 [History Last Taken 08/18/23] ropinirole 0.5 mg tablet 0.5 mg PO DAILY restless legs 08/19/23 [History Last Taken 08/18/23] tiotropium bromide 2.5 mcg/actuation mist for inhalation (Spiriva Respimat) 2 inh inhalation Q24H breathing 08/19/23 [History Last Taken 08/18/23] furosemide 40 mg tablet 20 mg (1/2 x 40 mg) PO DAILY diuretic #30 tabs 08/23/23 [Rx Last Taken 08/18/23] nicotine 14 mg/24 hr daily transdermal patch 14 mg transdermal DAILY 30 days #28 ea 08/23/23 [Rx Last Taken Unknown] potassium chloride 10 mEq capsule,extended release 10 meq PO DAILY #30 caps 08/23/23 [Rx Last Taken Unknown] prednisone 20 mg tablet See Taper PO BREAKFAST #32 tabs 08/23/23 [Rx Last Taken Unknown] Allergy/AdvReac Type Severity Reaction Status Date / Time bupropion HCl Allergy Anaphylaxis Verified 08/19/23 12:57 [From Wellbutrin] cephalexin monohydrate Allergy Anaphylaxis Verified 09/12/23 15:45 [From Keflex] levofloxacin Allergy Anaphylaxis Verified 09/12/23 15:45 Penicillins [PCN] Allergy Anaphylaxis Verified 09/12/23 15:45 Milk Containing Products AdvReac phlegm Verified 08/19/23 12:57 (Dairy) [Milk Containing Products] Family History Father Colon cancer Heart disease Surgical History History of appendectomy History of cholecystectomy History of hysterectomy History of incisional hernia repair Status post hip surgery Social History Smoking Status: Current some day smoker tobacco type: cigarettes alcohol intake: never substance use type: does not use ROS Constitutional Constitutional: Denies anorexia, change in weight, fever(s), night sweats or weakness Eyes Eyes: Denies blurry vision, change in vision, discharge from eye(s) or eye pain Cardiovascular Cardiovascular: Denies chest pain, claudication, edema or palpitations Respiratory/Chest Respiratory/Chest: Reports cough, dyspnea, productive cough, shortness of breath at rest and shortness of breath with exertion; Denies hemoptysis Gastrointestinal Gastrointestinal: Denies abdominal pain, constipation, diarrhea, hematemesis, hematochezia, melena, nausea or vomiting Genitourinary Genitourinary: Denies dysuria, hematuria, urinary frequency, urinary hesitancy, urinary incontinence or urinary urgency Musculoskeletal Musculoskeletal: Denies back pain, joint pain, joint stiffness, joint swelling, myalgias or neck pain Neurologic Neurologic: Denies abnormal gait, abnormal speech, dizziness, focal weakness, headache(s), loss of vision, numbness, other visual disturbances, paresthesias, syncope or tingling Psychiatric Psychiatric: Denies anxiety, cognitive impairment, depression, irritability, mood swings or suicidal ideation Endocrine Endocrinology: Denies change in body appearance, cold intolerance, excessive sweating, heat intolerance, polydipsia or polyuria Hematologic/Lymphatic Hematologic/Lymphatic: Denies none, anemia, easy bleeding, easy bruising or lymphadenopathy Allergic/Immunologic Allergic/Immunologic: Denies rhinitis, urticaria, eczemia or asthma Vital Signs Vital Signs Vital Signs: 09/12/23 11:20 09/12/23 11:22 09/12/23 11:26 Temperature 100.5 F H 100.5 F H Temperature Source Temporal Temporal Pulse Rate 131 H 131 H Respiratory Rate 20 H 22 H Respiratory Effort Short of Breath Labored Respiratory Depth Shallow Respiratory Pattern Tachypnea Blood Pressure 104/63 104/63 Blood Pressure Mean 76 76 Pulse Ox 96 86 Oxygen Delivery Method Non-Rebreather Nasal Cannula Venturi Mask Oxygen Flow Rate (L/min) 15 5 15 09/12/23 11:30 09/12/23 11:35 09/12/23 11:38 Temperature 100.5 F H Temperature Source Temporal Pulse Rate 129 H Respiratory Rate 24 H Respiratory Effort Respiratory Depth Respiratory Pattern Blood Pressure 104/63 Blood Pressure Mean 76 Pulse Ox 87 89 90 Oxygen Delivery Method Venturi Mask High Flow High Flow Oxygen Flow Rate (L/min) 15 09/12/23 12:53 09/12/23 12:53 09/12/23 12:15 Temperature 98.5 F 98.5 F Temperature Source Oral Oral Pulse Rate 114 H 119 H 128 H Respiratory Rate 15 17 30 H Respiratory Effort Respiratory Depth Respiratory Pattern Tachypnea Blood Pressure 85/65 L 85/65 L Blood Pressure Mean 71 71 Pulse Ox 84 84 Oxygen Delivery Method High Flow High Flow Oxygen Flow Rate (L/min) 15 09/12/23 12:15 09/12/23 15:37 09/12/23 16:14 Temperature 98 F Temperature Source Pulse Rate 120 H 113 H Respiratory Rate 22 H 22 H Respiratory Effort Respiratory Depth Respiratory Pattern Blood Pressure 98/68 94/52 L Blood Pressure Mean 78 66 Pulse Ox 93 96 97 Oxygen Delivery Method Nasal Cannula Nasal Cannula Oxygen Flow Rate (L/min) 15 8 Weight Weight: 40.5 kg Body Mass Index (BMI) 17.4 Physical Exam Const alert, oriented x3 and no apparent distress Constitutional Narrative: Patient appears cachectic General Appearance: cooperative, well kempt and well developed Orientation / Consciousness: awake, oriented to person, oriented to place and oriented to time HEENT normocephalic, head/scalp atraumatic, hearing grossly normal bilaterally and moist oral mucous membranes Eyes PERRL, EOMs intact bilaterally and conjunctivae normal Neck supple, no JVD, thyroid normal and no carotid bruits General: trachea midline Resp normal respiratory effort and no retractions Resp Narrative: Patient had expiratory wheezes scattered throughout both lungs, breath sounds are diminished bilaterally Auscultation: Negative for rales, rhonchi or wheezes Cardio regular rate, regular rhythm, S1 normal heart sound, S2 normal heart sound, no murmurs, no rub and no gallops GI normal to inspection, nondistended, normoactive bowel sounds, soft to palpation, non-tender and non-distended Extremity no clubbing, cyanosis or edema Skin no rashes or lesions noted General Skin Exam: no breakdown Neuro oriented x3, CN's II-XII intact bilaterally, no focal motor deficits and no sensory deficits noted Sensorium / Orientation: awake, alert, oriented to person, oriented to place and oriented to time Speech: speech normal Psych affect normal Results Lab / Micro Data 09/12/23 11:30 09/12/23 11:30 Labs: Laboratory Results - last 24 hr 09/12/23 11:30: WBC 20.1 H, RBC 3.30 L, Hgb 9.8 L, Hct 32.3 L, MCV 97.9, MCH 29.7, MCHC 30.3 L, RDW Std Deviation 63.5 H, RDW Coeff of Jacinto 17.8 H, Plt Count 301, MPV 11.0, Immature Gran % (Auto) 0.600, Neut % (Auto) 92.1 H, Lymph % (Auto) 2.7 L, [place] % (Auto) 3.8, Eos % (Auto) 0.0, Baso % (Auto) 0.8, Absolute Neuts (auto) 18.5 H, Absolute Lymphs (auto) 0.54 L, Nucleated RBC % 0, Differential Comment SCANNED, PT 13.9, INR 1.1, APTT 22.9 L, Sodium 145, Potassium 4.0, Chloride 96 L, Carbon Dioxide > 45.0 H*, Anion Gap TNP, BUN 24 H, Creatinine 0.30 L, Estim Creat Clear Calc 30.12, Est GFR (MDRD) Af Amer 274, Est GFR (MDRD) Non-Af 227, BUN/Creatinine Ratio 79.2 H, Glucose 106, Lactic Acid 1.2, Calcium 9.6, Total Bilirubin 0.70, AST 15, ALT 19, Alkaline Phosphatase 101, Total Protein 6.5, Albumin 2.0 L, Globulin 4.5 H, Albumin/Globulin Ratio 0.4 L 09/12/23 12:50: Urine Color Yellow, Urine Clarity Clear, Urine pH 8.0, Ur Specific [place] 1.015, Urine Protein 30 H, Urine Glucose (UA) Normal, Urine Ketones 150 A*, Urine Occult Blood Negative, Urine Nitrite Negative, Urine Bilirubin 1 H, Urine Urobilinogen 4 H, Ur Leukocyte Esterase 100 H, Urine RBC 0 SEEN, Urine WBC 5-10 SEEN, Ur Squamous Epith Cells 0-5 SEEN, Urine Bacteria 1+, Urine Mucus RARE Micro: Microbiology 09/12/23 12:20 Nasal Secretion SARS-CoV-2 & FLU Antigen (Rapid) - Final 09/12/23 12:20 Interface Orders Rapid RSV (DFA) - Final Rhythm Strip Rhythm Strip: Sinus Tach Rate: 133 Ectopy: None Imagaing Radiology Impression Chest X-Ray 09/12/23 12:00 IMPRESSION: Bilateral pulmonary infiltrates worse in the left hemithorax with a small left pleural effusion. Electronically Signed: Mao Rodgers MD at 12:27 EST Reading Location ID and State: [facility] / [place] , Service support , Assessment & Plan Assessment/Plan (1) Pneumonia: PLAN: Plan 1. Community-acquired pneumonia-patient will be admitted to [facility] 3, she will be given IV meropenem, sputum culture will be obtained if possible, urine antigens for Legionella and strep pneumo were ordered #2 chronic hypoxic respiratory failure with hypoxia despite home oxygen use- patient's pulse ox will be monitored #3 chronic obstructive pulmonary disease-it appears from the patient's labs that she may be a CO2 retainer, she is still smoking even though she realizes she should not. Complicates care, medical course, recovery, and prognosis #4 chronic depression-patient is on Lexapro #5 dehydration-patient will be given IV fluids, her Lasix will be held Total clinical time spent by myself addressing the patient's medical issues, reviewing all of her data, and collaborating with patient's care team: 55- minutes Charges/Coding Visit Charges Inpatient E&M: 90943 Init Hosp L2
[2023-09-12] MEDS: Gabapentin 300 MG Capsule PO (18:49)
[2023-09-12] MEDS: 0.9% Normal Saline (1000mL) 1,000 ML 100 ML IV (18:58)
[2023-09-12] MEDS: Budesonide Respules 0.5 MG/2 ML AMPUL.NEB. INHALATION (19:50)
[2023-09-12] MEDS: Meropenem 1 GM in 0.9% Normal Saline (100mL MB+) 100 ML IV (22:58)
[2023-09-12] MEDS: Senna/Docusate Sodium 1 Tablet 2 TABLET PO (23:06)
[2023-09-12] MEDS: Heparin Injection (Vial) 5,000 UNIT/ML VIAL 5000 UNIT SC (23:06)
[2023-09-12] MEDS: Citalopram 20 MG Tablet PO (23:06)
[2023-09-12] MEDS: 0.9% Saline Lock 10 ML Syringe IV (23:06)
[2023-09-13] VITALS (16 sets, daily range): BP systolic 98–106; BP diastolic 48–74; PULSE 72–106; RESP 18–22; TEMP 36.5–36.8; O2SAT 85–100
[2023-09-13] MEDS: 0.9% Normal Saline (1000mL) 1,000 ML 100 ML IV ×2 (04:05→14:32)
[2023-09-13] MEDS: Gabapentin 300 MG Capsule PO ×2 (04:23→17:17)
[2023-09-13 05:41] LABS: Absolute Lymphocyte Count 0.43 X10^3/uL (0.83-4.51); Basophil# 0.02 X10^3/uL; Basophil% 0.1 % (0-1); Hemoglobin 7.8 g/dL (12.0-15.0); Lymphocyte # 0.43 X10^3/ul (0.83-4.51); Lymphocyte % 3.1 % (19-41); Mean Corpuscular Hgb 29.3 pg (27.0-32.0); Mean Corpuscular Volume 97.7 fL (81-99); Monocyte# 0.23 X10^3/uL; Monocyte% 1.7 % (0-10); NRBC Flagged by Analyzer 0 % (0-5); Neutrophil % 94.4 % (47-70); POSITIVE DIFFERENTIAL YES; Platelet Count 314 K/mm3 (150-450); RBC Distribution Width CV 17.6 % (11.6-14.6); RBC Distribution Width SD 63.3 fl (35.1-43.9); Red Blood Count 2.66 M/mm3 (4.2-5.4); White Blood Count 13.8 K/mm3 (4.4-11.0)
[2023-09-13 06:01] LABS: Differential Indicated SCAN CRITERIA MET
[2023-09-13 06:21] LABS: Anion Gap 3 (5-15); BUN 27 mg/dL (7-18); BUN/Creat Ratio 162.7 RATIO (10-20); Calcium,Total 8.6 mg/dL (8.5-10.1); Chloride 101 mmol/L (98-107); Creatinine, Serum 0.17 mg/dL (0.55-1.02); EST Glomerular Filtration Rate 454 mL/min (>60); Est Glom Filt Rate - Afr Amer 549 mL/min (>60); Estimated Creatinine Clearance 29.16 ml/min; Glucose 162 mg/dL (74-106); Potassium 3.2 mmol/L (3.5-5.1); Sodium Level 148 mmol/L (136-145)
[2023-09-13 06:54] LABS: Differential Comment SCANNED
--- NOTE | 2023-09-13 07:34 | PN.HOSP_ITS ---
Reason for Visit Reason for Visit: Diagnoses Pneumonia, unspecified organism (09/12/23) Subjective Subjective Breathing better. Oxygen weaned down from 10 L down to 5 L. Objective Data Objective Data Vital Signs: Vital Signs Temp Pulse Resp BP Pulse Ox O2 Del Method O2 Flow Rate 36.5 C L 96 22 H 102/48 L 92 High Flow 5 09/13/23 04:10 09/13/23 04:10 09/13/23 04:10 09/13/23 04:10 09/13/23 04:32 09/13/23 04:32 09/13/23 04:32 Oxygen Flow Rate (L/min) 5 Oxygen Delivery Method High Flow Weight: 39.2 kg Body Mass Index (BMI) 16.9 Intake & Output: Intake and Output for Last 24 Hours 09/11/23 09/12/23 09/13/23 23:59 23:59 23:59 Intake Total 1321.67 / 1321.67 1031.67 / 1031.67 Output Total 350 / 350 Balance 971.67 / 971.67 1031.67 / 1031.67 Lab / Micro Data 09/13/23 05:20 09/13/23 05:20 Labs: Laboratory Results - last 24 hr 09/12/23 11:30: WBC 20.1 H, RBC 3.30 L, Hgb 9.8 L, Hct 32.3 L, MCV 97.9, MCH 29.7, MCHC 30.3 L, RDW Std Deviation 63.5 H, RDW Coeff of Jacinto 17.8 H, Plt Count 301, MPV 11.0, Immature Gran % (Auto) 0.600, Neut % (Auto) 92.1 H, Lymph % (Auto) 2.7 L, [place] % (Auto) 3.8, Eos % (Auto) 0.0, Baso % (Auto) 0.8, Absolute Neuts (auto) 18.5 H, Absolute Lymphs (auto) 0.54 L, Nucleated RBC % 0, Differential Comment SCANNED, PT 13.9, INR 1.1, APTT 22.9 L, Sodium 145, Potassium 4.0, Chloride 96 L, Carbon Dioxide > 45.0 H*, Anion Gap TNP, BUN 24 H, Creatinine 0.30 L, Estim Creat Clear Calc 30.12, Est GFR (MDRD) Af Amer 274, Est GFR (MDRD) Non-Af 227, BUN/Creatinine Ratio 79.2 H, Glucose 106, Lactic Acid 1.2, Calcium 9.6, Total Bilirubin 0.70, AST 15, ALT 19, Alkaline Phosphatase 101, Total Protein 6.5, Albumin 2.0 L, Globulin 4.5 H, Albumin/Globulin Ratio 0.4 L 09/12/23 12:50: Urine Color Yellow, Urine Clarity Clear, Urine pH 8.0, Ur Specific [place] 1.015, Urine Protein 30 H, Urine Glucose (UA) Normal, Urine Ketones 150 A*, Urine Occult Blood Negative, Urine Nitrite Negative, Urine Bilirubin 1 H, Urine Urobilinogen 4 H, Ur Leukocyte Esterase 100 H, Urine RBC 0 SEEN, Urine WBC 5-10 SEEN, Ur Squamous Epith Cells 0-5 SEEN, Urine Bacteria 1+, Urine Mucus RARE 09/13/23 05:20: WBC 13.8 H, RBC 2.66 L, Hgb 7.8 L, Hct 26.0 L, MCV 97.7, MCH 29.3, MCHC 30.0 L, RDW Std Deviation 63.3 H, RDW Coeff of Jacinto 17.6 H, Plt Count 314, MPV 10.0, Immature Gran % (Auto) 0.700, Neut % (Auto) 94.4 H, Lymph % (Auto) 3.1 L, [place] % (Auto) 1.7, Eos % (Auto) 0.0, Baso % (Auto) 0.1, Absolute Neuts (auto) 13.0 H, Absolute Lymphs (auto) 0.43 L, Nucleated RBC % 0, Differential Comment SCANNED, Sodium 148 H, Potassium 3.2 L, Chloride 101, Carbon Dioxide 44.0 H, Anion Gap 3 L, BUN 27 H, Creatinine 0.17 L, Estim Creat Clear Calc 29.16, Est GFR (MDRD) Af Amer 549, Est GFR (MDRD) Non-Af 454, BUN/Creatinine Ratio 162.7 H, Glucose 162 H, Calcium 8.6 Micro: Microbiology 09/12/23 15:37 Mucosa - Nasopharyngeal Respiratory Panel (PCR) - Final 09/12/23 12:50 Urine Catheter - Catheter Legionella Antigen - Final 09/12/23 12:50 Urine Catheter - Catheter Streptococcus pneumoniae Antigen (M - Final 09/12/23 12:20 Nasal Secretion SARS-CoV-2 & FLU Antigen (Rapid) - Final 09/12/23 12:20 Interface Orders Rapid RSV (DFA) - Final Radiography Diagnostic Testing: Radiology Impression Chest X-Ray 09/12/23 12:00 IMPRESSION: Bilateral pulmonary infiltrates worse in the left hemithorax with a small left pleural effusion. Electronically Signed: Mao Rodgers MD at 12:27 EST , Rhythm Strip Rhythm Strip: Sinus Tach Rate: 133 Ectopy: None Physical Exam Const alert and no apparent distress Resp normal respiratory effort and no retractions Auscultation: wheezes Cardio regular rate, regular rhythm, S1 normal heart sound and S2 normal heart sound GI normal to inspection, nondistended, normoactive bowel sounds, soft to palpation, non-tender, non-distended and hepatosplenomegaly Extremity normal to inspection Neuro Sensorium / Orientation: awake and alert Assessment & Plan Assessment/Plan (1) Pneumonia: PLAN: Plan Suspected gram negative pneumonia * CXR shows bilateral infiltrates. Patient just discharged on the first with COPD exacerbation and pulmonary fibrosis. Continue with IV meropenem for now. * Sputum culture pending, respiratory panel negative, strep and Legionella antigens negative. COVID-19 and influenza negative. Chronic conditions: * Chronic hypoxic respiratory failure with hypoxia secondary to COPD and pulmonary fibrosis. Follow-up Dr. Koenig as outpatient. Add prednisone. * chronic obstructive pulmonary disease-it appears from the patient's labs that she may be a CO2 retainer, she is still smoking even though she realizes she should not. Complicates care, medical course, recovery, and prognosis * chronic depression-patient is on Lexapro VTE prophylaxis with heparin Charges/Coding Visit Charges Inpatient E&M: 19797 Subs Hosp L2
[2023-09-13] MEDS: Budesonide Respules 0.5 MG/2 ML AMPUL.NEB. INHALATION ×2 (08:59→19:29)
[2023-09-13] MEDS: Ipratropium/Albuterol Sulfate 3 ML AMPUL.NEB INHALATION ×3 (08:59→19:29)
[2023-09-13] MEDS: Meropenem 1 GM in 0.9% Normal Saline (100mL MB+) 100 ML IV ×2 (09:03→22:22)
[2023-09-13] MEDS: Famotidine 20 MG Tablet 40 MG PO (09:04)
[2023-09-13] MEDS: Menthol/Lanolin/Calamine/Znox 113 GM Tube 1 APPLIC TOPICAL ×2 (09:04→22:22)
[2023-09-13] MEDS: Aspirin E.C. 81 MG Tablet PO (09:04)
[2023-09-13] MEDS: Ferrous Sulfate 325 MG Tablet PO ×2 (09:04→17:15)
[2023-09-13] MEDS: Loratadine 10 MG Tablet PO (09:04)
[2023-09-13] MEDS: Heparin Injection (Vial) 5,000 UNIT/ML VIAL 5000 UNIT SC ×2 (09:05→22:22)
[2023-09-13] MEDS: Pantoprazole Sodium 20 MG Tablet PO (09:05)
[2023-09-13] MEDS: Pramipexole Di-HCl 0.25 MG Tablet PO (09:05)
[2023-09-13] MEDS: Azithromycin 500 MG in Dextrose 5%-Water (250mL Bag) 250 ML 250 MG IV (09:36)
--- NOTE | 2023-09-13 12:00 | CASEMGMT ---
ELADIO DAWSON Readmission Review Index: 08/19/23 to 08/24/23. Dx: Acute on chronic RF with Hypoxia and hypercapnia, COPD Exacerbation, Atrial Tachycardia. Readmission: 09/12/23. Dx: CAP, Dehydration Pt with COPD, chronic hypoxic RF, depression, pulmonary fibrosis, smoker, history of PE, osteoporosis, GERD, neuropathy, high cholesterol. Pt admitted on above noted dates with corresponding diagnosis. Pt index admission was a readmission during which the option of hospice was explored. Upon DC, the pt decided to stay with [facility] with [facility] which included HH aide for 2 hours a day Saturday through Saturday. Pt has a home O2 concentrator that goes up to 10L through [facility]. Hayley HENDRICKS CM and this RN CM to bedside for face to face visit. Pt is A&Ox3 and answers our questions appropriately. Confirmed pt GD continues to live with her and helps with ADLs and IADLs. Pt states she is not actively being seen by SN. Pt states that [facility] sees her virtually for PCP. Pt also states that she is active with [facility]. Pt reports getting HH aide through [facility]. Pt states they see her 3-4 times per week for 2 hours per visit. Pt states that Nata Gleason is her primary CM. Pt states she wears O2 at 3L/min and has a concentrator that can go up to 10L. Attempted to contact [facility] to verify O2 order and no answer received. Voicemail states they are closed until Saturday09/17/23. Pt states that she has become more weak prior to admission here and states having more difficulties ambulating in the home. Pt states that she would like to go to [facility] at time of DC to get stronger prior to returning home. ZAIDA Jacobsen notified. Pt was also given the option for a list of SNF but denied, stating she has been to [facility] before and that is her preference. Pt states that she spoke with son, Juan C, and relayed this plan. DC Plan: [facility]/ SNF pending acceptance and prior meghana Swanson RN, CM
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
--- OUTSIDE RECORDS SUMMARY | 2023-09-13 12:37 | XMS RPT_ITS | CCD ---
Author Name Unknown Address [address] [place] [address] Organization [facility] Care Team Providers Care Wire Wheeler Name Role Phone RICCARDO FREEMAN MD Attending Unavailable RICCARDO FREEMAN MD Primary Care Unavailable RICCARDO FREEMAN MD Admitting Unavailable Allergies Allergy Classification Reported Allergen(s) Allergy Type Date of Onset Reaction(s) Facility Cephalosporins (antibiotic) (1 source) Cephalexin Drug Allergy [facility] Repository Penicillins (antibiotic) (1 source) Penicillins (Antibiotic) Drug Allergy [facility] Repository Problems Problem Classification Problem Date [...] Evaluation and management of inpatient [facility] Payers Date Payer Category Payer Unknown [id number] Unknown [id number] Clinical Note 04-11-2021 Note Date & Type Note Facility 04-11-2021 [facility] PROGRESS NOTE NAME ACCOUNT SEX AGE ADMIT DISCHARGE PT MED. RECORD# NUMBER DATE DATE TYPE DAVID [id number] F [id number] 03/27/21 1 LISETTE [id number] ROOM: [facility] DATE OF : 1945 DICTATING PHYSICIAN: Natividad [...] okay for discharge to home or a fpc facility when cleared medically, having adequate pain control, and doing well with physical therapy. We will plan to see her back in the office in 2 weeks for reassessment, staple removal, and x-rays of the right hip. Please do not hesitate to contact us with any further orthopedic concerns. Dictated By: Natividad Rodrigues PA-C 03/28/21 07:51 JOB #: [id number] Transcribed By: christine 03/28/21 08:17 Electronically signed by: E-sign Natividad FORBES 04/11/21 07:44 Page 2 of 2 LISETTE HERNANDEZ Progress Note [facility] Clinical Note 04-10-2021 Note Date & Type Note Facility 04-10-2021 Note [facility] CONSULTATION REPORT NAME ACCOUNT SEX AGE ADMIT DISCHARGE PT MED. RECORD# NUMBER DATE DATE TYPE DAVID [id number] F 75 03/27/2021 1 LISETTE [id number] ROOM: [facility] DATE OF : 1945 DICTATING PHYSICIAN: Geovanny [...] roll. Page 1 of 2 LISETTE HERNANDEZ Cab Driver Report LISETTE HERNANDEZ : 1945 DIAGNOSTIC DATA: [...] Geovanny Pearl MD 03/27/2021 06:57 JOB #: [id number] Transcribed By: christine 03/27/2021 07:15 Electronically signed by: Dr. Geovanny Pearl MD 04/10/21 07:58 Page 2 of 2 LISETTE HERNANDEZ Cab Driver Report [facility] History and physical note 04-06-2021 Note Date & Type Note Facility 04-06-2021 Note [facility] HISTORY & PHYSICAL NAME ACCOUNT SEX AGE ADMIT DISCHARGE PT MED. RECORD# NUMBER DATE DATE TYPE DAVID [id number] F 75 03/26/21 1 LISETTE [id number] ROOM: [facility] DATE OF : [birth year] DICTATING PHYSICIAN: Yobani [...] Yobani Hendrickson MD 03/27/21 01:33 JOB #: [id number] Transcribed By: [email or web address] 03/27/21 04:31 Electronically signed by: E-Sign: YOBANI HENDRICKSON MD 04/06/21 11:35 Update to H&P: [ ] No changes: I have examined the patient and reviewed the H&P and there are no changes. [ ] As previously dictated with the following changes: PHYSICIAN SIGNATURE: TIME: DATE: Page 3 of 3 LISETTE HERNANDEZ History & Physical [facility] Summary Purpose Family History No Family [...] BE BASED ON THE PRIMARY CLINICAL RECORDS. [facility]. provides no warranty or guarantee of the accuracy or completeness of information in this document.
[2023-09-13] MEDS: Acetaminophen 500 MG Tablet 1000 MG PO ×2 (14:27→22:20)
[2023-09-13] MEDS: predniSONE 20 MG Tablet 40 MG PO (14:27)
[2023-09-13] MEDS: Potassium Chloride Oral Tablet 20 MEQ 40 MEQ PO (14:29)
--- NOTE | 2023-09-13 16:23 | CASEMGMT ---
Social Work SW recieved referral that pt is requesting to go to [facility]. DC daycare assistant updated and referral sent. Pt has been accepted and precert has been started. ZAIDA met with pt and son Gene and updated that [facility] has accepted and pt will remain in the hospital until precert is obtained. Pt and son agreeable. Pt has services through [facility]. Phone call to the coverage team and updated on hospitalization and dc plan. Pt's telehealth case manager is Nata Gamboa. Pt recieves aid services M-F 2 hours in the morning and 2 hours in the afternoon through a private provider. Pt receives 14 home delivered meals per week. DC summary to be faxed to Nata at time of discharge. Plan: [facility], pending precert SÁNCHEZ Watkins
--- NOTE | 2023-09-13 16:43 | CASEMGMT ---
Discharge Planning [facility] has obtained precert. It is good until the . SW updated. Diana Jennings, Discharge Planning Asst.
--- NOTE | 2023-09-13 16:49 | CASEMGMT ---
Social Work Precert has been obtained and is good through 09/15 [facility] If pt is not medically ready by this time, pt will need to remain in the hospital until SW returns on 09/17 to obtain new precert. Physician updated. Pt and son Gene notified. SÁNCHEZ Watkins
[2023-09-13] MEDS: Ensure Plus High Protein 120 ML LIQUID PO (17:15)
[2023-09-13] MEDS: Citalopram 20 MG Tablet PO (22:20)
[2023-09-13] MEDS: Senna/Docusate Sodium 1 Tablet 2 TABLET PO (22:23)
[2023-09-14] VITALS (19 sets, daily range): BP systolic 113–131; BP diastolic 63–71; PULSE 78–106; RESP 18–26; TEMP 36.5–36.7; O2SAT 71–99
[2023-09-14] MEDS: 0.9% Normal Saline (1000mL) 1,000 ML 100 ML IV ×2 (00:21→08:42)
[2023-09-14] MEDS: Gabapentin 300 MG Capsule PO ×2 (05:46→16:11)
[2023-09-14] MEDS: Ipratropium/Albuterol Sulfate 3 ML AMPUL.NEB INHALATION ×4 (06:52→19:54)
[2023-09-14] MEDS: Budesonide Respules 0.5 MG/2 ML AMPUL.NEB. INHALATION ×2 (06:52→19:54)
--- NOTE | 2023-09-14 07:21 | PN.HOSP_ITS ---
Reason for Visit Reason for Visit: Diagnoses Pneumonia, unspecified organism (09/12/23) Subjective Subjective Sats dropped overnight to 71% this morning. Oxygen was increased to 6 L. Objective Data Objective Data Vital Signs: Vital Signs Temp Pulse Resp BP Pulse Ox O2 Del Method O2 Flow Rate 36.5 C L 78 18 116/71 93 Nasal Cannula 6 09/14/23 05:33 09/14/23 06:53 09/14/23 06:53 09/14/23 05:33 09/14/23 06:53 09/14/23 06:53 09/14/23 06:53 Oxygen Flow Rate (L/min) 6 Oxygen Delivery Method Nasal Cannula Weight: 39.2 kg Body Mass Index (BMI) 16.9 Intake & Output: Intake and Output for Last 24 Hours 09/12/23 09/13/23 09/14/23 23:59 23:59 23:59 Intake Total 1321.67 / 1321.67 2926.67 / 2926.67 1101.67 / 1101.67 Output Total 350 / 350 840 / 990 250 / 250 Balance 971.67 / 971.67 2086.67 / 1936.67 851.67 / 851.67 Medical Nutrition Assessment Dietitian: Malnutrition Criteria Met Start: 09/13/23 16:11 Freq: Status: Active Protocol: Document 09/13/23 16:11 BIBI (Rec: 09/13/23 16:11 [facility] [id number]) Nutrition Malnutrition Evidence of Malnutrition Exists Yes Malnutrition (moderate): Chronic Evidenced By Suboptimal Energy Intake ( Moderate),Physical Changes ( Severe) Clinical Problem Chronic Disease or Condition Related Malnutrition Etiology related to physiological changes decreasing oral intakes Signs/Symptoms as evidenced by moderate to severe muscle and fat wasting per NFPA (clavicles, temples, buccal, deltoids, etc.) and decreased oral intakes less than 75% of estimated nutrient needs for > 1 month. Status Active Problem Recommendation Dietitian Recommendations/Changes Continue with Regular diet for liberalization. Pt agreed to Ensure Plus High Protein 120mL TID w/ medpass to help increase oral intakes. Will continue to follow & modify nutrition interventions as needed. Lab / Micro Data 09/14/23 07:55 09/14/23 07:55 Micro: Microbiology 09/12/23 18:15 Sputum, Expectorated/Coughed Gram Stain - Final 09/12/23 12:50 Urine, Catheterized Urine Culture - Preliminary GPC Poss Enterococcus sp 09/12/23 15:37 Mucosa - Nasopharyngeal Respiratory Panel (PCR) - Final 09/12/23 12:50 Urine Catheter - Catheter Legionella Antigen - Final 09/12/23 12:50 Urine Catheter - Catheter Streptococcus pneumoniae Antigen (M - Final 09/12/23 12:20 Nasal Secretion SARS-CoV-2 & FLU Antigen (Rapid) - Final 09/12/23 12:20 Interface Orders Rapid RSV (DFA) - Final Rhythm Strip Rhythm Strip: Sinus Tach Rate: 133 Ectopy: None Physical Exam Const alert Resp normal respiratory effort, no retractions, no use of accessory muscles and clear to auscultation bilaterally Cardio regular rate, regular rhythm, S1 normal heart sound and S2 normal heart sound GI normal to inspection, nondistended, normoactive bowel sounds, soft to palpation and non-tender Assessment & Plan Assessment/Plan (1) Pneumonia: PLAN: Plan Suspected gram negative pneumonia * CXR shows bilateral infiltrates. Patient just discharged on the first with COPD exacerbation and pulmonary fibrosis. Continue with IV meropenem for now. * Sputum culture pending * respiratory panel negative, strep and Legionella antigens negative. COVID-19 and influenza negative. Bacteriuria * Urine culture from the showed possible Enterococcus species but only 1000-10,000 CFU's. * Urinalysis performed on as well as negative for the evidence of urinary tract infection though did have +1 bacteria. There is no urinary tract infection Chronic conditions: * Chronic hypoxic respiratory failure with hypoxia secondary to COPD and pulmonary fibrosis. Follow-up Dr. Koenig as outpatient. Add prednisone. * chronic obstructive pulmonary disease-it appears from the patient's labs that she may be a CO2 retainer, she is still smoking even though she realizes she should not. Complicates care, medical course, recovery, and prognosis * chronic depression-patient is on Lexapro VTE prophylaxis with heparin Disposition: Monitor overnight. Patient remains stable could potentially discharge in the a.m. Charges/Coding Visit Charges Inpatient E&M: 93262 Subs Hosp L2
[2023-09-14 08:13] LABS: Absolute Lymphocyte Count 1.49 X10^3/uL (0.83-4.51); Absolute Neutrophil Count 7.1 X10^3/uL (2.0-7.7); Basophil# 0.01 X10^3/uL; Basophil% 0.1 % (0-1); Eosinophil# 0.01 X10^3/uL; Eosinophils% 0.1 % (0-5); Hematocrit 27.7 % (37-47); Hemoglobin 8.2 g/dL (12.0-15.0); Lymphocyte # 1.49 X10^3/ul (0.83-4.51); Lymphocyte % 16.4 % (19-41); Mean Corp Hgb Conc 29.6 g/dL (32-36); Mean Corpuscular Hgb 29.5 pg (27.0-32.0); Mean Corpuscular Volume 99.6 fL (81-99); Mean Platelet Vol. 10.1 fl (6.2-12.0); Monocyte# 0.36 X10^3/uL; NRBC Flagged by Analyzer 0 % (0-5); Neutrophil # 7.14 X10^3/uL (2.7-7.7); Neutrophil % 78.7 % (47-70); Platelet Count 403 K/mm3 (150-450); RBC Distribution Width CV 17.6 % (11.6-14.6); RBC Distribution Width SD 64.5 fl (35.1-43.9); Red Blood Count 2.78 M/mm3 (4.2-5.4); White Blood Count 9.1 K/mm3 (4.4-11.0)
[2023-09-14 08:26] LABS: Anion Gap -1 (5-15); BUN 23 mg/dL (7-18); BUN/Creat Ratio 100.4 RATIO (10-20); Calcium,Total 8.7 mg/dL (8.5-10.1); Chloride 106 mmol/L (98-107); Creatinine, Serum 0.23 mg/dL (0.55-1.02); EST Glomerular Filtration Rate 313 mL/min (>60); Est Glom Filt Rate - Afr Amer 379 mL/min (>60); Estimated Creatinine Clearance 29.16 ml/min; Glucose 64 mg/dL (74-106); Magnesium 2.5 mg/dL (1.6-2.6); Potassium 3.6 mmol/L (3.5-5.1); Sodium Level 146 mmol/L (136-145)
[2023-09-14] MEDS: Ensure Plus High Protein 120 ML LIQUID PO ×3 (08:40→16:11)
[2023-09-14] MEDS: Ferrous Sulfate 325 MG Tablet PO ×2 (08:41→16:11)
[2023-09-14] MEDS: predniSONE 20 MG Tablet 40 MG PO (08:41)
[2023-09-14] MEDS: Menthol/Lanolin/Calamine/Znox 113 GM Tube 1 APPLIC TOPICAL ×2 (08:42→21:57)
[2023-09-14] MEDS: Aspirin E.C. 81 MG Tablet PO (08:43)
[2023-09-14] MEDS: Loratadine 10 MG Tablet PO (08:43)
[2023-09-14] MEDS: Heparin Injection (Vial) 5,000 UNIT/ML VIAL 5000 UNIT SC ×2 (08:44→21:56)
[2023-09-14] MEDS: Pramipexole Di-HCl 0.25 MG Tablet PO (08:44)
[2023-09-14] MEDS: Famotidine 20 MG Tablet 40 MG PO (08:45)
[2023-09-14] MEDS: Pantoprazole Sodium 20 MG Tablet PO (08:45)
[2023-09-14] MEDS: Azithromycin 500 MG in Dextrose 5%-Water (250mL Bag) 250 ML 250 MG IV (09:40)
[2023-09-14] MEDS: Meropenem 1 GM in 0.9% Normal Saline (100mL MB+) 100 ML IV ×2 (10:43→21:51)
--- NOTE | 2023-09-14 19:36 | NURSING ---
po 88% on 3lnc. 02 increase to 4lnc and encourage to take deep breaths
[2023-09-14] MEDS: 0.9% Saline Lock 10 ML Syringe IV (21:51)
[2023-09-14] MEDS: Citalopram 20 MG Tablet PO (21:56)
[2023-09-14] MEDS: Senna/Docusate Sodium 1 Tablet 2 TABLET PO (21:56)
[2023-09-15] VITALS (17 sets, daily range): BP systolic 100–131; BP diastolic 64–82; PULSE 74–104; RESP 18–24; TEMP 36.5–37.1; O2SAT 83–99
[2023-09-15] MEDS: Gabapentin 300 MG Capsule PO ×2 (06:13→17:10)
[2023-09-15 06:14] LABS: Absolute Lymphocyte Count 1.87 X10^3/uL (0.83-4.51); Absolute Neutrophil Count 4.1 X10^3/uL (2.0-7.7); Basophil# 0.01 X10^3/uL; Basophil% 0.2 % (0-1); Eosinophil# 0.03 X10^3/uL; Eosinophils% 0.5 % (0-5); Hematocrit 26.2 % (37-47); Hemoglobin 7.9 g/dL (12.0-15.0); Lymphocyte # 1.87 X10^3/ul (0.83-4.51); Lymphocyte % 29.4 % (19-41); Mean Corp Hgb Conc 30.2 g/dL (32-36); Mean Corpuscular Hgb 29.3 pg (27.0-32.0); Mean Platelet Vol. 9.7 fl (6.2-12.0); Monocyte# 0.35 X10^3/uL; Monocyte% 5.5 % (0-10); NRBC Flagged by Analyzer 0 % (0-5); Neutrophil # 4.05 X10^3/uL (2.7-7.7); Neutrophil % 63.8 % (47-70); Platelet Count 422 K/mm3 (150-450); RBC Distribution Width CV 17.5 % (11.6-14.6); RBC Distribution Width SD 62.2 fl (35.1-43.9); White Blood Count 6.4 K/mm3 (4.4-11.0)
[2023-09-15 06:59] LABS: Anion Gap 0 (5-15); BUN 16 mg/dL (7-18); Calcium,Total 8.6 mg/dL (8.5-10.1); Chloride 103 mmol/L (98-107); EST Glomerular Filtration Rate 510 mL/min (>60); Est Glom Filt Rate - Afr Amer 617 mL/min (>60); Glucose 72 mg/dL (74-106); Potassium 3.5 mmol/L (3.5-5.1); Sodium Level 143 mmol/L (136-145)
--- NOTE | 2023-09-15 07:13 | PN.HOSP_ITS ---
Reason for Visit Reason for Visit: Diagnoses Pneumonia, unspecified organism (09/12/23) Subjective Subjective Short of breath with exertion today. Objective Data Objective Data Vital Signs: Vital Signs Temp Pulse Resp BP Pulse Ox O2 Del Method O2 Flow Rate 36.5 C L 77 24 H 100/82 H 95 Nasal Cannula 4 09/15/23 06:12 09/15/23 06:12 09/15/23 06:12 09/15/23 06:12 09/15/23 06:12 09/15/23 06:12 09/15/23 06:12 Oxygen Flow Rate (L/min) 4 Oxygen Delivery Method Nasal Cannula Weight: 39.2 kg Body Mass Index (BMI) 16.9 Intake & Output: Intake and Output for Last 24 Hours 09/13/23 09/14/23 09/15/23 23:59 23:59 23:59 Intake Total 2926.67 / 2926.67 3561.67 / 3561.67 120 / 120 Output Total 840 / 990 750 / 750 150 / 150 Balance 2086.67 / 1936.67 2811.67 / 2811.67 -30 / -30 Medical Nutrition Assessment Dietitian: Malnutrition Criteria Met Start: 09/13/23 16:11 Freq: Status: Active Protocol: Document 09/13/23 16:11 BIBI (Rec: 09/13/23 16:11 [facility] [id number]) Nutrition Malnutrition Evidence of Malnutrition Exists Yes Malnutrition (moderate): Chronic Evidenced By Suboptimal Energy Intake ( Moderate),Physical Changes ( Severe) Clinical Problem Chronic Disease or Condition Related Malnutrition Etiology related to physiological changes decreasing oral intakes Signs/Symptoms as evidenced by moderate to severe muscle and fat wasting per NFPA (clavicles, temples, buccal, deltoids, etc.) and decreased oral intakes less than 75% of estimated nutrient needs for > 1 month. Status Active Problem Recommendation Dietitian Recommendations/Changes Continue with Regular diet for liberalization. Pt agreed to Ensure Plus High Protein 120mL TID w/ medpass to help increase oral intakes. Will continue to follow & modify nutrition interventions as needed. Lab / Micro Data 09/15/23 05:40 09/15/23 05:40 Labs: Laboratory Results - last 24 hr 09/14/23 07:55: WBC 9.1, RBC 2.78 L, Hgb 8.2 L, Hct 27.7 L, MCV 99.6 H, MCH 29.5, MCHC 29.6 L, RDW Std Deviation 64.5 H, RDW Coeff of Jacinto 17.6 H, Plt Count 403, MPV 10.1, Immature Gran % (Auto) 0.700, Neut % (Auto) 78.7 H, Lymph % (Auto) 16.4 L, Bowie % (Auto) 4.0, Eos % (Auto) 0.1, Baso % (Auto) 0.1, Absolute Neuts (auto) 7.1, Absolute Lymphs (auto) 1.49, Nucleated RBC % 0, Sodium 146 H, Potassium 3.6, Chloride 106, Carbon Dioxide 41.0 H, Anion Gap -1 L, BUN 23 H, Creatinine 0.23 L, Estim Creat Clear Calc 29.16, Est GFR (MDRD) Af Amer 379, Est GFR (MDRD) Non-Af 313, BUN/Creatinine Ratio 100.4 H, Glucose 64 L, Calcium 8.7, Magnesium 2.5 09/15/23 05:40: WBC 6.4, RBC 2.70 L, Hgb 7.9 L, Hct 26.2 L, MCV 97.0, MCH 29.3, MCHC 30.2 L, RDW Std Deviation 62.2 H, RDW Coeff of Jacinto 17.5 H, Plt Count 422, MPV 9.7, Immature Gran % (Auto) 0.600, Neut % (Auto) 63.8, Lymph % (Auto) 29.4, [place] % (Auto) 5.5, Eos % (Auto) 0.5, Baso % (Auto) 0.2, Absolute Neuts (auto) 4.1, Absolute Lymphs (auto) 1.87, Nucleated RBC % 0, Sodium 143, Potassium 3.5, Chloride 103, Carbon Dioxide 40.0 H, Anion Gap 0 L, BUN 16, Est GFR (MDRD) Af Amer 617, Est GFR (MDRD) Non-Af 510, BUN/Creatinine Ratio TNP, Glucose 72 L, Calcium 8.6 Micro: Microbiology 09/12/23 11:45 Blood Culture (Wb) - Left Hand Blood Culture - Preliminary No growth in 48 hours. 09/12/23 11:30 Blood Culture (Wb) - Right Wrist Blood Culture - Preliminary No growth in 48 hours. 09/12/23 12:50 Urine, Catheterized Urine Culture - Final Enterococcus faecalis 09/12/23 18:15 Sputum, Expectorated/Coughed Gram Stain - Final 09/12/23 15:37 Mucosa - Nasopharyngeal Respiratory Panel (PCR) - Final 09/12/23 12:50 Urine Catheter - Catheter Legionella Antigen - Final 09/12/23 12:50 Urine Catheter - Catheter Streptococcus pneumoniae Antigen (M - Final 09/12/23 12:20 Nasal Secretion SARS-CoV-2 & FLU Antigen (Rapid) - Final 09/12/23 12:20 Interface Orders Rapid RSV (DFA) - Final Rhythm Strip Rhythm Strip: Sinus Tach Rate: 133 Ectopy: None Physical Exam Const alert and no apparent distress Resp normal respiratory effort and no retractions Resp Narrative: wheezes bilaterally. Cardio regular rate, regular rhythm, S1 normal heart sound and S2 normal heart sound GI normal to inspection, nondistended, normoactive bowel sounds, soft to palpation, non-tender and non-distended Psych affect normal Assessment & Plan Assessment/Plan (1) Pneumonia: PLAN: Plan Suspected gram negative pneumonia * CXR shows bilateral infiltrates. Patient just discharged on the first with COPD exacerbation and pulmonary fibrosis. Continue with IV meropenem for now. * Sputum culture pending * respiratory panel negative, strep and Legionella antigens negative. COVID-19 and influenza negative. Bacteriuria * Urine culture from the showed possible Enterococcus species but only 1000-10,000 CFU's. * Urinalysis performed on as well as negative for the evidence of urinary tract infection though did have +1 bacteria. There is no urinary tract infection Chronic conditions: * Chronic hypoxic respiratory failure with hypoxia secondary to COPD and pulmona ry fibrosis. Follow-up Dr. Keonig as outpatient. Add prednisone. * chronic obstructive pulmonary disease-it appears from the patient's labs that she may be a CO2 retainer, she is still smoking even though she realizes she should not. Complicates care, medical course, recovery, and prognosis * chronic depression-patient is on Lexapro * anemia: stable. VTE prophylaxis with heparin Disposition: Monitor overnight. Patient remains stable could potentially discharge in the a.m. Charges/Coding Visit Charges Inpatient E&M: 28311 Subs Hosp L2
[2023-09-15] MEDS: Budesonide Respules 0.5 MG/2 ML AMPUL.NEB. INHALATION ×2 (07:25→19:18)
[2023-09-15] MEDS: Ipratropium/Albuterol Sulfate 3 ML AMPUL.NEB INHALATION ×3 (07:25→19:17)
[2023-09-15 07:58] LABS: Creatinine, Serum < 0.15 mg/dL (0.55-1.02)
[2023-09-15 07:59] LABS: BUN/Creat Ratio 106.7 RATIO (10-20); Estimated Creatinine Clearance 29.16 ml/min
[2023-09-15] MEDS: Meropenem 1 GM in 0.9% Normal Saline (100mL MB+) 100 ML IV ×2 (09:30→20:09)
[2023-09-15] MEDS: Heparin Injection (Vial) 5,000 UNIT/ML VIAL 5000 UNIT SC ×2 (09:30→20:04)
--- NOTE | 2023-09-15 10:01 | NURSING ---
pt up in chair but has had emesis of about 150 ml w/ coughing-she states she is too nauseas to take am meds at this time
[2023-09-15] MEDS: Aspirin E.C. 81 MG Tablet PO (12:00)
[2023-09-15] MEDS: Azithromycin 500 MG in Dextrose 5%-Water (250mL Bag) 250 ML 250 MG IV (12:23)
[2023-09-15] MEDS: Menthol/Lanolin/Calamine/Znox 113 GM Tube 1 APPLIC TOPICAL ×2 (12:25→20:04)
[2023-09-15] MEDS: Loratadine 10 MG Tablet PO (12:26)
[2023-09-15] MEDS: Ensure Plus High Protein 120 ML LIQUID PO ×3 (12:26→17:11)
[2023-09-15] MEDS: Ferrous Sulfate 325 MG Tablet PO ×2 (12:26→17:11)
[2023-09-15] MEDS: predniSONE 20 MG Tablet 40 MG PO (12:27)
[2023-09-15] MEDS: Famotidine 20 MG Tablet 40 MG PO (12:27)
[2023-09-15] MEDS: Pantoprazole Sodium 20 MG Tablet PO (12:29)
[2023-09-15] MEDS: Pramipexole Di-HCl 0.25 MG Tablet PO (12:29)
[2023-09-15] MEDS: guaiFENesin 1,200 MG Tablet 1200 MG PO ×2 (12:30→20:03)
[2023-09-15] MEDS: 0.9% Saline Lock 10 ML Syringe IV (20:02)
[2023-09-15] MEDS: Senna/Docusate Sodium 1 Tablet 2 TABLET PO (20:03)
[2023-09-15] MEDS: Citalopram 20 MG Tablet PO (20:04)
[2023-09-16] VITALS (17 sets, daily range): BP systolic 98–123; BP diastolic 57–72; PULSE 72–108; RESP 18–24; TEMP 36.4–37; O2SAT 85–99
[2023-09-16] MEDS: Gabapentin 300 MG Capsule PO ×2 (04:34→17:40)
--- NOTE | 2023-09-16 07:14 | PN.HOSP_ITS ---
Reason for Visit Reason for Visit: Diagnoses Pneumonia, unspecified organism (09/12/23) Subjective Subjective Feels ok, but still gets SOB with minimal exertion. Objective Data Objective Data Vital Signs: Vital Signs Temp Pulse Resp BP Pulse Ox O2 Del Method O2 Flow Rate 36.5 C L 88 22 H 113/62 94 High Flow 4 09/16/23 04:32 09/16/23 04:32 09/16/23 04:32 09/16/23 04:32 09/16/23 04:32 09/16/23 04:32 09/16/23 04:32 Oxygen Flow Rate (L/min) [ 6 AMBULATING with Oxygen #2] Oxygen Flow Rate (L/min) [ 4 AMBULATING with Oxygen #1] Oxygen Flow Rate (L/min) [At 3 REST with Oxygen] Oxygen Flow Rate (L/min) 4 Oxygen Delivery Method High Flow Weight: 39.2 kg Body Mass Index (BMI) 16.9 Intake & Output: Intake and Output for Last 24 Hours 09/14/23 09/15/23 09/16/23 23:59 23:59 23:59 Intake Total 3561.67 / 3561.67 1270 / 1270 120 / 120 Output Total 750 / 750 650 / 1025 725 / 725 Balance 2811.67 / 2811.67 620 / 245 -605 / -605 Medical Nutrition Assessment Dietitian: Malnutrition Criteria Met Start: 09/13/23 16:11 Freq: Status: Active Protocol: Document 09/13/23 16:11 ANGELITA (Rec: 09/13/23 16:11 [facility] [id number]) Nutrition Malnutrition Evidence of Malnutrition Exists Yes Malnutrition (moderate): Chronic Evidenced By Suboptimal Energy Intake ( Moderate),Physical Changes ( Severe) Clinical Problem Chronic Disease or Condition Related Malnutrition Etiology related to physiological changes decreasing oral intakes Signs/Symptoms as evidenced by moderate to severe muscle and fat wasting per NFPA (clavicles, temples, buccal, deltoids, etc.) and decreased oral intakes less than 75% of estimated nutrient needs for > 1 month. Status Active Problem Recommendation Dietitian Recommendations/Changes Continue with Regular diet for liberalization. Pt agreed to Ensure Plus High Protein 120mL TID w/ medpass to help increase oral intakes. Will continue to follow & modify nutrition interventions as needed. Lab / Micro Data 09/15/23 05:40 09/15/23 05:40 Labs: Laboratory Results - last 24 hr 09/15/23 05:40: Creatinine < 0.15 L, Estim Creat Clear Calc 29.16, BUN/Creatinine Ratio 106.7 H Micro: Microbiology 09/12/23 11:45 Blood Culture (Wb) - Left Hand Blood Culture - Preliminary No growth in 48 hours. 09/12/23 11:30 Blood Culture (Wb) - Right Wrist Blood Culture - Preliminary No growth in 48 hours. 09/12/23 12:50 Urine, Catheterized Urine Culture - Final Enterococcus faecalis 09/12/23 18:15 Sputum, Expectorated/Coughed Gram Stain - Final 09/12/23 15:37 Mucosa - Nasopharyngeal Respiratory Panel (PCR) - Final 09/12/23 12:50 Urine Catheter - Catheter Legionella Antigen - Final 09/12/23 12:50 Urine Catheter - Catheter Streptococcus pneumoniae Antigen (M - Final 09/12/23 12:20 Nasal Secretion SARS-CoV-2 & FLU Antigen (Rapid) - Final 09/12/23 12:20 Interface Orders Rapid RSV (DFA) - Final Rhythm Strip Rhythm Strip: Sinus Tach Rate: 133 Ectopy: None Physical Exam Const alert and no apparent distress Resp normal respiratory effort Resp Narrative: diminished BS. Cardio regular rate, regular rhythm, S1 normal heart sound and S2 normal heart sound GI normal to inspection, nondistended, normoactive bowel sounds, soft to palpation and non-tender Neuro Sensorium / Orientation: awake and alert Assessment & Plan Assessment/Plan (1) Pneumonia: PLAN: Plan Suspected gram negative pneumonia * CXR shows bilateral infiltrates. Patient just discharged on the first with COPD exacerbation and pulmonary fibrosis. Continue with IV meropenem for now. * Sputum culture pending * respiratory panel negative, strep and Legionella antigens negative. COVID-19 and influenza negative. COPD exacerbation * change prednisone to methylpred * PEP Bacteriuria * Urine culture from the showed possible Enterococcus species but only 1000-10,000 CFU's. * Urinalysis performed on as well as negative for the evidence of urinary tract infection though did have +1 bacteria. There is no urinary tract in fection Chronic conditions: * Chronic hypoxic respiratory failure with hypoxia secondary to COPD and pulmonary fibrosis. Follow-up Dr. Koenig as outpatient. Add prednisone. * chronic obstructive pulmonary disease-it appears from the patient's labs that she may be a CO2 retainer, she is still smoking even though she realizes she should not. Complicates care, medical course, recovery, and prognosis * chronic depression-patient is on Lexapro * anemia: stable. VTE prophylaxis with heparin Charges/Coding Visit Charges Inpatient E&M: 31936 Subs Hosp L2
[2023-09-16] MEDS: Budesonide Respules 0.5 MG/2 ML AMPUL.NEB. INHALATION ×2 (07:27→19:30)
[2023-09-16] MEDS: Ipratropium/Albuterol Sulfate 3 ML AMPUL.NEB INHALATION ×5 (07:27→23:12)
[2023-09-16] MEDS: guaiFENesin 1,200 MG Tablet 1200 MG PO ×2 (09:14→23:34)
[2023-09-16] MEDS: Ensure Plus High Protein 120 ML LIQUID PO ×3 (09:15→17:37)
[2023-09-16] MEDS: Menthol/Lanolin/Calamine/Znox 113 GM Tube 1 APPLIC TOPICAL ×2 (09:15→23:31)
[2023-09-16] MEDS: predniSONE 20 MG Tablet 40 MG PO (09:15)
[2023-09-16] MEDS: Aspirin E.C. 81 MG Tablet PO (09:15)
[2023-09-16] MEDS: Ferrous Sulfate 325 MG Tablet PO ×2 (09:15→17:38)
[2023-09-16] MEDS: Loratadine 10 MG Tablet PO (09:15)
[2023-09-16] MEDS: Pramipexole Di-HCl 0.25 MG Tablet PO (09:16)
[2023-09-16] MEDS: Famotidine 20 MG Tablet 40 MG PO (09:16)
[2023-09-16] MEDS: Pantoprazole Sodium 20 MG Tablet PO (09:16)
[2023-09-16] MEDS: Heparin Injection (Vial) 5,000 UNIT/ML VIAL 5000 UNIT SC ×2 (09:17→23:33)
[2023-09-16] MEDS: Azithromycin 500 MG in Dextrose 5%-Water (250mL Bag) 250 ML 250 MG IV (09:21)
[2023-09-16] MEDS: Meropenem 1 GM in 0.9% Normal Saline (100mL MB+) 100 ML IV ×2 (12:16→23:31)
[2023-09-16] MEDS: 0.9% Saline Lock 10 ML Syringe IV (13:50)
[2023-09-16] MEDS: 0.9% Normal Saline (250mL Bag) 250 ML 15 ML IV (17:37)
[2023-09-16] MEDS: Senna/Docusate Sodium 1 Tablet 2 TABLET PO (23:33)
[2023-09-16] MEDS: Citalopram 20 MG Tablet PO (23:34)
[2023-09-17] VITALS (11 sets, daily range): BP systolic 104–125; BP diastolic 59–68; PULSE 61–105; RESP 18–22; TEMP 36.5–37.3; O2SAT 93–97
[2023-09-17] MEDS: Gabapentin 300 MG Capsule PO ×2 (05:27→18:21)
[2023-09-17 06:42] LABS: Absolute Lymphocyte Count 0.52 X10^3/uL (0.83-4.51); Hematocrit 24.1 % (37-47); Hemoglobin 7.1 g/dL (12.0-15.0); Lymphocyte # 0.52 X10^3/ul (0.83-4.51); Lymphocyte % 7.6 % (19-41); Mean Corp Hgb Conc 29.5 g/dL (32-36); Mean Corpuscular Hgb 28.9 pg (27.0-32.0); Mean Platelet Vol. 9.9 fl (6.2-12.0); Monocyte# 0.19 X10^3/uL; Monocyte% 2.8 % (0-10); NRBC Flagged by Analyzer 0 % (0-5); Neutrophil # 6.04 X10^3/uL (2.7-7.7); POSITIVE DIFFERENTIAL YES; Platelet Count 540 K/mm3 (150-450); RBC Distribution Width CV 17.4 % (11.6-14.6); Red Blood Count 2.46 M/mm3 (4.2-5.4); White Blood Count 6.9 K/mm3 (4.4-11.0)
[2023-09-17] MEDS: Budesonide Respules 0.5 MG/2 ML AMPUL.NEB. INHALATION ×2 (06:49→19:48)
[2023-09-17] MEDS: Ipratropium/Albuterol Sulfate 3 ML AMPUL.NEB INHALATION ×5 (06:49→23:24)
[2023-09-17 07:00] LABS: Differential Indicated SCAN CRITERIA MET
--- NOTE | 2023-09-17 07:05 | PN.HOSP_ITS ---
Reason for Visit Reason for Visit: Diagnoses Pneumonia, unspecified organism (09/12/23) Subjective Subjective Feels that she is breathing better. Oxygen has been able to be weaned down slightly. Still does feel very short of breath and weak. Objective Data Objective Data Vital Signs: Vital Signs Temp Pulse Resp BP Pulse Ox O2 Del Method O2 Flow Rate 36.8 C 90 18 104/59 L 93 Nasal Cannula 3 09/17/23 05:11 09/17/23 06:50 09/17/23 06:50 09/17/23 05:11 09/17/23 06:50 09/17/23 06:50 09/17/23 06:50 Oxygen Flow Rate (L/min) [ 6 AMBULATING with Oxygen #2] Oxygen Flow Rate (L/min) [ 4 AMBULATING with Oxygen #1] Oxygen Flow Rate (L/min) [At 3 REST with Oxygen] Oxygen Flow Rate (L/min) 3 Oxygen Delivery Method Nasal Cannula Weight: 39.2 kg Body Mass Index (BMI) 16.9 Intake & Output: Intake and Output for Last 24 Hours 09/15/23 09/16/23 09/17/23 23:59 23:59 23:59 Intake Total 1270 / 1270 1445 / 1445 120 / 120 Output Total 650 / 1025 1625 / 1625 100 / 100 Balance 620 / 245 -180 / -180 Medical Nutrition Assessment Dietitian: Malnutrition Criteria Met Start: 09/13/23 16:11 Freq: Status: Active Protocol: Document 09/13/23 16:11 [facility] (Rec: 09/13/23 16:11 [facility] [id number]) Nutrition Malnutrition Evidence of Malnutrition Exists Yes Malnutrition (moderate): Chronic Evidenced By Suboptimal Energy Intake ( Moderate),Physical Changes ( Severe) Clinical Problem Chronic Disease or Condition Related Malnutrition Etiology related to physiological changes decreasing oral intakes Signs/Symptoms as evidenced by moderate to severe muscle and fat wasting per NFPA (clavicles, temples, buccal, deltoids, etc.) and decreased oral intakes less than 75% of estimated nutrient needs for > 1 month. Status Active Problem Recommendation Dietitian Recommendations/Changes Continue with Regular diet for liberalization. Pt agreed to Ensure Plus High Protein 120mL TID w/ medpass to help increase oral intakes. Will continue to follow & modify nutrition interventions as needed. Lab / Micro Data 09/17/23 05:45 09/17/23 05:45 Labs: Laboratory Results - last 24 hr 09/17/23 05:45: WBC 6.9, RBC 2.46 L, Hgb 7.1 L, Hct 24.1 L, MCV 98.0, MCH 28.9, MCHC 29.5 L, RDW Std Deviation 62.0 H, RDW Coeff of Jacinto 17.4 H, Plt Count 540 H, MPV 9.9, Immature Gran % (Auto) 1.600 H, Neut % (Auto) 88.0 H, Lymph % (Auto) 7.6 L, [place] % (Auto) 2.8, Eos % (Auto) 0.0, Baso % (Auto) 0.0, Absolute Neuts (auto) 6.0, Absolute Lymphs (auto) 0.52 L, Nucleated RBC % 0 Micro: Microbiology 09/12/23 18:15 Sputum, Expectorated/Coughed Gram Stain - Final 09/12/23 18:15 Sputum, Expectorated/Coughed Respiratory Culture - Final Streptococcus pneumoniae 09/12/23 11:45 Blood Culture (Wb) - Left Hand Blood Culture - Preliminary No growth in 48 hours. 09/12/23 11:30 Blood Culture (Wb) - Right Wrist Blood Culture - Preliminary No growth in 48 hours. 09/12/23 12:50 Urine, Catheterized Urine Culture - Final Enterococcus faecalis 09/12/23 15:37 Mucosa - Nasopharyngeal Respiratory Panel (PCR) - Final 09/12/23 12:50 Urine Catheter - Catheter Legionella Antigen - Final 09/12/23 12:50 Urine Catheter - Catheter Streptococcus pneumoniae Antigen (M - Final 09/12/23 12:20 Nasal Secretion SARS-CoV-2 & FLU Antigen (Rapid) - Final 09/12/23 12:20 Interface Orders Rapid RSV (DFA) - Final Rhythm Strip Rhythm Strip: Sinus Tach Rate: 133 Ectopy: None Physical Exam Const alert and no apparent distress HEENT head/scalp atraumatic Resp normal respiratory effort, no retractions, no use of accessory muscles and clear to auscultation bilaterally Cardio regular rate, regular rhythm, S1 normal heart sound and S2 normal heart sound GI normal to inspection, nondistended, normoactive bowel sounds, soft to palpation, non-tender and non-distended Extremity normal to inspection Assessment & Plan Assessment/Plan (1) Pneumonia: PLAN: Plan Pneumococcal pneumonia * CXR shows bilateral infiltrates. Patient just discharged on the first with COPD exacerbation and pulmonary fibrosis. * Sputum culture showing streptoccoccus pneumoniae * respiratory panel negative, strep and Legionella antigens negative. COVID-19 and influenza negative. * continue meropenem and azithromycin, unfortunately pt has noted allergy w anaphylaxis to PCNs, fqns and cephalosporins. Will consult ID for recommendations. COPD exacerbation * change prednisone to methylpred * PEP, BDs Bacteriuria * Urine culture from the showed possible Enterococcus species but only 1000-10,000 CFU's. * Urinalysis performed on as well as negative for the evidence of urinary tract infection though did have +1 bacteria. There is no urinary tract infection Anemia * has dropped from 8.2 to 7.1 during admission. However, was 12.5 on 08/07. * TSH, B12 and folate are within normal limits. Iron is low at 26 and ferritin is 26. I do feel the patient has component of iron deficiency anemia. * Hemoccult currently pending * Patient ideally should have GI evaluation but given her respiratory status, patient is a high risk. Would defer that to outpatient at this point in time. In the meantime, we will give her an iron infusion. Patient already taking iron with ferrous sulfate 325 twice daily. * transfuse if Hg less than 7. Chronic conditions: * Chronic hypoxic respiratory failure with hypoxia secondary to COPD and pulmonary fibrosis. Follow-up Dr. Koenig as outpatient. Add prednisone. * chronic obstructive pulmonary disease-it appears from the patient's labs that she may be a CO2 retainer, she is still smoking even though she realizes she should not. Complicates care, medical course, recovery, and prognosis * chronic depression-patient is on Lexapro VTE prophylaxis SCDs Charges/Coding Visit Charges Inpatient E&M: 40912 Subs Hosp L3
[2023-09-17 07:12] LABS: Anion Gap -1 (5-15); BUN 12 mg/dL (7-18); BUN/Creat Ratio 64.9 RATIO (10-20); Calcium,Total 8.5 mg/dL (8.5-10.1); Chloride 100 mmol/L (98-107); Creatinine, Serum 0.18 mg/dL (0.55-1.02); EST Glomerular Filtration Rate 400 mL/min (>60); Est Glom Filt Rate - Afr Amer 484 mL/min (>60); Estimated Creatinine Clearance 29.16 ml/min; Glucose 93 mg/dL (74-106); Potassium 4.1 mmol/L (3.5-5.1); Sodium Level 143 mmol/L (136-145)
[2023-09-17 07:16] LABS: Differential Comment SCANNED
[2023-09-17 07:49] LABS: Ferritin 64 ng/mL (8-252); Iron 26 ug/dL (50-170); Iron Binding Capacity,Total 222 ug/dL (250-450); PERCENT IRON SATURATION 11.7 % (15.0-55.0); Thyroid Stim Hormone (TSH) 0.55 uIU/mL (0.358-3.74)
[2023-09-17] MEDS: Ferrous Sulfate 325 MG Tablet PO ×2 (08:33→18:17)
[2023-09-17] MEDS: Ensure Plus High Protein 120 ML LIQUID PO ×3 (08:35→18:20)
[2023-09-17 08:38] LABS: Vitamin B12 631 pg/mL (211-911)
[2023-09-17] MEDS: Azithromycin 500 MG in Dextrose 5%-Water (250mL Bag) 250 ML 250 MG IV (09:02)
--- NOTE | 2023-09-17 09:52 | CASEMGMT ---
Discharge Planning Patients precert has and it's anticipated that she will be here another day or two. Updates sent to [facility] w/tentative los. Awaiting response as to if they are submitting for precert today. Diana Jennings, Discharge Planning Asst.
[2023-09-17] MEDS: Loratadine 10 MG Tablet PO (10:47)
[2023-09-17] MEDS: Meropenem 1 GM in 0.9% Normal Saline (100mL MB+) 100 ML IV (10:47)
[2023-09-17] MEDS: Menthol/Lanolin/Calamine/Znox 113 GM Tube 1 APPLIC TOPICAL ×2 (10:47→21:34)
[2023-09-17] MEDS: Pantoprazole Sodium 20 MG Tablet PO (10:49)
[2023-09-17] MEDS: Pramipexole Di-HCl 0.25 MG Tablet PO (10:49)
[2023-09-17] MEDS: Famotidine 20 MG Tablet 40 MG PO (10:49)
[2023-09-17] MEDS: Aspirin E.C. 81 MG Tablet PO (10:54)
[2023-09-17] MEDS: guaiFENesin 1,200 MG Tablet 1200 MG PO ×2 (10:54→21:33)
--- NOTE | 2023-09-17 12:51 | WOUNDNOTE ---
was asked to see patient for redness to buttocks. no open areas noted. pt is very thin. there is an area of unbalanceable redness noted to the sacral area. pt incontinent so did not apply a Mepilex dressing. applied calmoseptine as ordered. will monitor.
[2023-09-17] MEDS: Ceftriaxone 1 GM in 0.9% Normal Saline (50mL MB+) 50 ML IV (13:36)
--- NOTE | 2023-09-17 14:10 | CASEMGMT ---
Discharge Planning Precert has been obtain by [facility]. It is good until 09/18. SW updated. Diana Jennings, Discharge Planning Asst.
--- NOTE | 2023-09-17 14:12 | CASEMGMT ---
Addendum entered by Norma Johnson 09/17/23 15:48: Social Work SW spoke w/pt's son, let him know that we do have precert and pt may possibly be discharged tomorrow. Son states understanding. GIGI Cason Original Note: Social Work Precert is back again and good until tomorrow for pt to go to [facility]. GIGI Cason
--- NOTE | 2023-09-17 14:38 | PCM.CONS.GEN ---
Assessment & Plan Assessment/Plan (1) Pneumonia: PLAN: S.pneumo UAg (+). Will narrow to ceftriaxone. Plan on 6 days total of abx, plan on home with po omnicef 300mg bid to complete course. Will follow, thank you (2) COPD exacerbation: HPI Consult Data Date of Consult: 09/17/23 HPI Narrative Reason for Consultation: pneumonia HPI Narrative: LISETTE HERNANDEZ, is a 78 F with copd, 3L home O2, presented 09/12 with 3-4 days cough with yellow sputum, dyspnea, chills, not feeling well. Admitted on azithro and parvez. Feeling better. No n/v/d. Full ROS performed and neg except as noted above. PFSH Medical History Anxiety Asthma Atrial fibrillation Bleeding disorder cataracts Congestive heart failure (CHF) COPD (chronic obstructive pulmonary disease) Depression Gout High cholesterol Hx of gallstones Migraines Neuropathy On home O2 Osteoarthritis Osteoporosis Sleep apnea Smoker Home Medications famotidine 40 mg tablet 40 mg PO DAILY GERD 10/24/18 [History Last Taken 08/18/23] albuterol sulfate 1.25 mg/3 mL solution for nebulization 1.25 mg inhalation Q4H sob 04/04/21 [History Last Taken 04/03/21] citalopram 20 mg tablet 20 mg PO QHS mood 04/04/21 [History Last Taken 08/18/23] fluticasone furoate 200 mcg-vilanterol 25 mcg/dose inhalation powder (Breo Ellipta) 1 inh inhalation BID copd 04/04/21 [History Last Taken 08/18/23] loratadine 10 mg tablet 10 mg PO DAILY allergies 04/04/21 [History Last Taken 08/18/23] ncgfwoheitcl-jepsxtos-ujskkk tablet 1 tab PO DAILY supplement 04/04/21 [History Last Taken 08/18/23] aspirin 81 mg tablet,delayed release 81 mg PO DAILY heart health 04/20/21 [History Last Taken 08/18/23] ferrous sulfate 325 mg (65 mg iron) tablet (FeroSul) 325 mg PO BID Iron Supplement 05/15/23 [History Last Taken 08/18/23] fluticasone propionate 50 mcg/actuation nasal spray,suspension 1 spray intranasal BID Allergies 05/15/23 [History Last Taken 08/18/23] sennosides 8.6 mg-docusate sodium 50 mg tablet (2-in-1 Laxative) 2 tab-cap PO QHS stool softener 05/15/23 [History Last Taken 08/18/23] ipratropium 0.5 mg-albuterol 3 mg (2.5 mg base)/3 mL nebulization soln 3 ml inhalation Q4HWA.RT breathing 14 days #180 mL 05/21/23 [Rx Last Taken Unknown] gabapentin 300 mg capsule 300 mg PO Q12H pain 08/19/23 [History Last Taken 08/18/23] omeprazole 20 mg capsule,delayed release 20 mg PO DAILY reflux 08/19/23 [History Last Taken 08/18/23] ropinirole 0.5 mg tablet 0.5 mg PO DAILY restless legs 08/19/23 [History Last Taken 08/18/23] tiotropium bromide 2.5 mcg/actuation mist for inhalation (Spiriva Respimat) 2 inh inhalation Q24H breathing 08/19/23 [History Last Taken 08/18/23] furosemide 40 mg tablet 20 mg (1/2 x 40 mg) PO DAILY diuretic #30 tabs 08/23/23 [Rx Last Taken 08/18/23] nicotine 14 mg/24 hr daily transdermal patch 14 mg transdermal DAILY 30 days #28 ea 08/23/23 [Rx Last Taken Unknown] potassium chloride 10 mEq capsule,extended release 10 meq PO DAILY #30 caps 08/23/23 [Rx Last Taken Unknown] prednisone 20 mg tablet See Taper PO BREAKFAST #32 tabs 08/23/23 [Rx Last Taken Unknown] Allergy/AdvReac Type Severity Reaction Status Date / Time bupropion HCl Allergy Anaphylaxis Verified 08/19/23 12:57 [From Wellbutrin] cephalexin monohydrate Allergy Anaphylaxis Verified 09/12/23 15:45 [From Keflex] levofloxacin Allergy Anaphylaxis Verified 09/12/23 15:45 Penicillins [PCN] Allergy Anaphylaxis Verified 09/12/23 15:45 Milk Containing Products AdvReac phlegm Verified 08/19/23 12:57 (Dairy) [Milk Containing Products] Family History Father Colon cancer Heart disease Surgical History History of appendectomy History of cholecystectomy History of hysterectomy History of incisional hernia repair Status post hip surgery Social History Smoking Status: Current some day smoker tobacco type: cigarettes alcohol intake: never substance use type: does not use Physical Exam Const alert and no apparent distress General Appearance: cooperative HEENT normocephalic and head/scalp atraumatic Resp Auscultation: diminished lung sounds Cardio regular rate and regular rhythm GI soft to palpation, non-tender and non-distended Extremity General Extremity: Negative for edema Skin no rashes or lesions noted Neuro CN's II-XII intact bilaterally Medical Records Data Medical Nutrition Assessment Dietitian: Malnutrition Criteria Met Start: 09/13/23 16:11 Freq: Status: Active Protocol: Document 09/13/23 16:11 [facility] (Rec: 09/13/23 16:11 [facility] [id number]) Nutrition Malnutrition Evidence of Malnutrition Exists Yes Malnutrition (moderate): Chronic Evidenced By Suboptimal Energy Intake ( Moderate),Physical Changes ( Severe) Clinical Problem Chronic Disease or Condition Related Malnutrition Etiology related to physiological changes decreasing oral intakes Signs/Symptoms as evidenced by moderate to severe muscle and fat wasting per NFPA (clavicles, temples, buccal, deltoids, etc.) and decreased oral intakes less than 75% of estimated nutrient needs for > 1 month. Status Active Problem Recommendation Dietitian Recommendations/Changes Continue with Regular diet for liberalization. Pt agreed to Ensure Plus High Protein 120mL TID w/ medpass to help increase oral intakes. Will continue to follow & modify nutrition interventions as needed. Lab / Micro Data Attestation: I reviewed the patient's lab results. 09/17/23 05:45 09/17/23 05:45 Labs: Laboratory Results - last 24 hr 09/17/23 05:45: WBC 6.9, RBC 2.46 L, Hgb 7.1 L, Hct 24.1 L, MCV 98.0, MCH 28.9, MCHC 29.5 L, RDW Std Deviation 62.0 H, RDW Coeff of Jacinto 17.4 H, Plt Count 540 H, MPV 9.9, Immature Gran % (Auto) 1.600 H, Neut % (Auto) 88.0 H, Lymph % (Auto) 7.6 L, [place] % (Auto) 2.8, Eos % (Auto) 0.0, Baso % (Auto) 0.0, Absolute Neuts (auto) 6.0, Absolute Lymphs (auto) 0.52 L, Nucleated RBC % 0, Differential Comment SCANNED, Sodium 143, Potassium 4.1, Chloride 100, Carbon Dioxide 44.0 H, Anion Gap -1 L, BUN 12, Creatinine 0.18 L, Estim Creat Clear Calc 29.16, Est GFR (MDRD) Af Amer 484, Est GFR (MDRD) Non-Af 400, BUN/Creatinine Ratio 64.9 H, Glucose 93, Calcium 8.5, Iron 26 L, TIBC 222 L, Iron Saturation 11.7 L, Ferritin 64, Vitamin B12 631, Folate 11.10, TSH 0.55 Micro: Microbiology 09/12/23 11:45 Blood Culture (Wb) - Left Hand Blood Culture - Final No growth in 5 days. 09/12/23 11:30 Blood Culture (Wb) - Right Wrist Blood Culture - Final No growth in 5 days. Rhythm Strip Rhythm Strip: Sinus Tach Rate: 133 Ectopy: None
[2023-09-17] MEDS: Sodium Ferric Gluconat 125 MG in 0.9% Normal Saline 100 ML 110 MG IV (15:21)
[2023-09-17] MEDS: Senna/Docusate Sodium 1 Tablet 2 TABLET PO (21:33)
[2023-09-17] MEDS: Citalopram 20 MG Tablet PO (21:33)
[2023-09-17] MEDS: 0.9% Normal Saline (250mL Bag) 250 ML 15 ML IV (21:36)
[2023-09-18] VITALS (7 sets, daily range): BP systolic 104–121; BP diastolic 63–73; PULSE 92–100; RESP 18–24; TEMP 36.6–36.7; O2SAT 3–96
[2023-09-18] MEDS: Gabapentin 300 MG Capsule PO (05:53)
[2023-09-18 07:22] LABS: Absolute Lymphocyte Count 1.05 X10^3/uL (0.83-4.51); Absolute Neutrophil Count 8.4 X10^3/uL (2.0-7.7); Basophil# 0.03 X10^3/uL; Basophil% 0.3 % (0-1); Eosinophil# 0.01 X10^3/uL; Eosinophils% 0.1 % (0-5); Hematocrit 24.2 % (37-47); Hemoglobin 7.1 g/dL (12.0-15.0); Lymphocyte # 1.05 X10^3/ul (0.83-4.51); Lymphocyte % 10.1 % (19-41); Mean Corp Hgb Conc 29.3 g/dL (32-36); Mean Corpuscular Hgb 28.9 pg (27.0-32.0); Mean Corpuscular Volume 98.4 fL (81-99); Mean Platelet Vol. 9.9 fl (6.2-12.0); Monocyte# 0.59 X10^3/uL; Monocyte% 5.7 % (0-10); NRBC Flagged by Analyzer 0.2 % (0-5); Neutrophil % 80.9 % (47-70); Platelet Count 606 K/mm3 (150-450); RBC Distribution Width CV 18.1 % (11.6-14.6); RBC Distribution Width SD 62.4 fl (35.1-43.9); Red Blood Count 2.46 M/mm3 (4.2-5.4); White Blood Count 10.4 K/mm3 (4.4-11.0)
[2023-09-18] MEDS: Ipratropium/Albuterol Sulfate 3 ML AMPUL.NEB INHALATION ×2 (07:30→13:41)
[2023-09-18] MEDS: Budesonide Respules 0.5 MG/2 ML AMPUL.NEB. INHALATION (07:30)
[2023-09-18] MEDS: 0.9% Saline Lock 10 ML Syringe IV (07:48)
[2023-09-18] MEDS: Furosemide 20 MG/2 ML VIAL IV (07:48)
[2023-09-18] MEDS: Ferrous Sulfate 325 MG Tablet PO (07:55)
[2023-09-18] MEDS: Ensure Plus High Protein 120 ML LIQUID PO ×2 (07:55→11:57)
[2023-09-18 08:02] LABS: BUN 13 mg/dL (7-18); Chloride 101 mmol/L (98-107)
[2023-09-18] MEDS: Menthol/Lanolin/Calamine/Znox 113 GM Tube 1 APPLIC TOPICAL (10:07)
[2023-09-18] MEDS: Aspirin E.C. 81 MG Tablet PO (10:08)
[2023-09-18] MEDS: Loratadine 10 MG Tablet PO (10:08)
[2023-09-18] MEDS: Pramipexole Di-HCl 0.25 MG Tablet PO (10:08)
[2023-09-18] MEDS: guaiFENesin 1,200 MG Tablet 1200 MG PO (10:08)
[2023-09-18] MEDS: Pantoprazole Sodium 20 MG Tablet PO (10:09)
[2023-09-18] MEDS: Famotidine 20 MG Tablet 40 MG PO (10:09)
[2023-09-18] MEDS: Ceftriaxone 1 GM in 0.9% Normal Saline (50mL MB+) 50 ML IV (10:10)
[2023-09-18 12:27] LABS: Hemoglobin 8.1 g/dL (12.0-15.0)
[2023-09-18 12:48] LABS: BUN/Creat Ratio 81.3 RATIO (10-20); Creatinine, Serum 0.16 mg/dL (0.55-1.02); EST Glomerular Filtration Rate 474 mL/min (>60); Est Glom Filt Rate - Afr Amer 574 mL/min (>60); Estimated Creatinine Clearance 29.16 ml/min
[2023-09-18 12:49] LABS: Anion Gap 0 (5-15); Glucose 73 mg/dL (74-106); Potassium 4.5 mmol/L (3.5-5.1); Sodium Level 145 mmol/L (136-145)
[2023-09-18 12:50] LABS: Calcium,Total 7.8 mg/dL (8.5-10.1)
--- NOTE | 2023-09-18 12:54 | PCM.PN.ID ---
Physical Exam Narrative Feeling better. Still some cough. No fever, no rash or itching. Const alert and no apparent distress General Appearance: cooperative Resp Auscultation: rhonchi and wheezes Cardio regular rate and regular rhythm GI soft to palpation, non-tender and non-distended Skin no rashes or lesions noted ID ID: Route of nutrition/ use of supplements: [] Nutritional Intake: [] IV Site: [] Hood Catheter: [] Assessment & Plan Assessment/Plan (1) Pneumonia: PLAN: S.pneumo UAg (+). Cont ceftriaxone. Improving. Will stop abx tomorrow. Will follow (2) COPD exacerbation:
--- NOTE | 2023-09-18 13:39 | TREXTCAR_ITS ---
Diet Diet Order/Speech Therapy: 09/12/23 18:00 Diet: Regular - General Food consistency:: Regular Liquid Consistency:: Regular/Thin Diet Comments: smaller portions Routine Orders/Code Status Suppository Frequency: Daily PRN O2 Liters per Minute: 3 O2 Frequency: Continuous Keep PO Greater than or Equal to (%): 88 Routine Lab Work: CBC (Repeat CBC on 09/24/2023) Code Status: DNRCC-A (No intubation) Wound(s) buttocks: Wound Type: Pressure Injury sacrum: Wound Type: Pressure Injury Suggestions for Active Care Change Position every (hours): 2 Therapies Weight Bearing: Full weight bearing Physical Therapy: Eval and Treat Occupational Therapy: Eval and Treat Problem/Diagnosis (1) Pneumonia: Status: Acute Code(s): J18.9 - Pneumonia, unspecified organism (2) COPD exacerbation: Status: Chronic Code(s): J44.1 - Chronic obstructive pulmonary disease with (acute) exacerbation Allergies/Procedures Done in Hospital Allergies bupropion HCl [From Wellbutrin] Allergy (Verified 08/19/23 12:57) Anaphylaxis only if doesnt take her brand from home cephalexin monohydrate [From Keflex] Allergy (Verified 09/12/23 15:45) Anaphylaxis throat swelling and vomiting levofloxacin Allergy (Verified 09/12/23 15:45) Anaphylaxis states she cant remember the reaction Penicillins [PCN] Allergy (Verified 09/12/23 15:45) Anaphylaxis swelling and a reaction Milk Containing Products (Dairy) [Milk Containing Products] Adverse Reaction (Ve rified 08/19/23 12:57) phlegm Procedures: EKG and - (Chest x-ray) Type of Care/Length of Stay Estimated LOS: Convalescent Care Less Than 30 days Type of Care Needed: Skilled Rehab Potential: Good Prognosis: Fair Additional Orders/Day of Discharge Day of Discharge: 09/18/23 Dietary and Speech Recommendations Dietitian Recommendations/Changes: Continue with Regular diet for liberalization. Pt agreed to Ensure Plus High Protein 120mL TID w/ medpass to help increase oral intakes. Will continue to follow & modify nutrition interventions as needed. Discharge Plan Admission Admit Date/Time: 09/12/23 15:33 Attending Provider: Essence Anne Primary Care Provider: EMMA DILLON Consulting Providers: Abbe Art; Harshal Weir; Felix Davison Discharge Orders/Prescriptions Prescriptions: No Action famotidine 40 tablet 40 mg PO DAILY [id number] Tablet 1 tab PO DAILY albuterol sulfate 1.25 mg/3 mL Solution For Nebulization 1.25 mg INHALATION Q4H citalopram 20 mg tablet 20 mg PO QHS loratadine 10 mg Tablet 10 mg PO DAILY fluticasone furoate-vilanterol [Breo Ellipta] 200-25 mcg/dose blister with device 1 inh INHALATION BID aspirin 81 mg Tablet,Delayed Release (Dr/Ec) 81 mg PO DAILY ferrous sulfate [FeroSul] 325 mg (65 mg iron) tablet 325 mg PO BID fluticasone propionate 50 mcg/actuation spray,suspension 1 spray INTRANASAL BID sennosides-docusate sodium [2-in-1 Laxative] 8.6-50 mg tablet 2 tab-cap PO QHS ipratropium-albuterol 0.5 mg-3 mg(2.5 mg base)/3 mL Solution For Nebulization 3 ml inhalation Q4HWA.RT 14 Days Qty: 180 0RF ropinirole 0.5 mg tablet 0.5 mg PO DAILY omeprazole 20 mg capsule,delayed release(DR/EC) 20 mg PO DAILY gabapentin 300 mg capsule 300 mg PO Q12H Spiriva Respimat 2.5 mcg/actuation mist 2 inh INHALATION Q24H nicotine 14 mg/24 hr Patch 24 Hour 14 mg transdermal DAILY 30 Days Qty: 28 0RF potassium chloride 10 mEq capsule, extended release 10 meq PO DAILY Qty: 30 0RF prednisone 20 mg Tablet See Taper PO BREAKFAST Qty: 32 0RF Taper: Prednisone Taper 60 mg WITH BREAKFAST for 3 Days and 0 Hour 50 mg WITH BREAKFAST for 3 Days and 0 Hour 40 mg WITH BREAKFAST for 3 Days and 0 Hour 30 mg WITH BREAKFAST for 3 Days and 0 Hour 20 mg WITH BREAKFAST for 3 Days and 0 Hour 10 mg WITH BREAKFAST for 3 Days and 0 Hour furosemide 40 MG tablet 20 mg PO DAILY Qty: 30 0RF Patient Comments: water pill Referrals / Follow Up: EMMA DILLON [Other] EMMA DILLON [Other] Friend,DO Ronal [Med Staff - Active Staff] - 10/21/23 8:45 am
--- NOTE | 2023-09-18 13:43 | PCM.DC.SUM ---
Providers Date of Admission: 09/12/23 Date of Discharge: 09/18/23 Primary Care Physician: EMMA DILLON Consultations 09/17/23 05:33 Consult: Onc/Wound/qa lead Routine Comment: Reason for Consult:: pressure injury on buttocks 09/17/23 07:12 Consult: Infectious Disease Routine Consulting Provider: Harshal Weir Reason for Consult: pneumoccal pneumonia with multiple medication allergies. EMERGENT Consult: No MD Notified: Yes Date Notified: 09/17/23 Time Notified: 08:48 Method of Notification: Text Reason For Visit: PNEUMONIA Diagnosis Discharge Diagnosis (1) Pneumonia: Status: Acute Code(s): J18.9 - Pneumonia, unspecified organism (2) COPD exacerbation: Status: Chronic Code(s): J44.1 - Chronic obstructive pulmonary disease with (acute) exacerbation Medications at Discharge Home Medications famotidine 40 mg tablet 40 mg PO DAILY GERD 10/24/18 albuterol sulfate 1.25 mg/3 mL solution for nebulization 1.25 mg inhalation Q4H sob 04/04/21 citalopram 20 mg tablet 20 mg PO QHS mood 04/04/21 fluticasone furoate 200 mcg-vilanterol 25 mcg/dose inhalation powder (Breo Ellipta) 1 inh inhalation BID copd 04/04/21 loratadine 10 mg tablet 10 mg PO DAILY allergies 04/04/21 utunblfccifa-owsypppc-olokqn tablet 1 tab PO DAILY supplement 04/04/21 aspirin 81 mg tablet,delayed release 81 mg PO DAILY heart health 04/20/21 ferrous sulfate 325 mg (65 mg iron) tablet (FeroSul) 325 mg PO BID Iron Supplement 05/15/23 fluticasone propionate 50 mcg/actuation nasal spray,suspension 1 spray intranasal BID Allergies 05/15/23 sennosides 8.6 mg-docusate sodium 50 mg tablet (2-in-1 Laxative) 2 tab-cap PO QHS stool softener 05/15/23 ipratropium 0.5 mg-albuterol 3 mg (2.5 mg base)/3 mL nebulization soln 3 ml inhalation Q4HWA.RT breathing 14 days #180 mL 05/21/23 gabapentin 300 mg capsule 300 mg PO Q12H pain 08/19/23 omeprazole 20 mg capsule,delayed release 20 mg PO DAILY reflux 08/19/23 ropinirole 0.5 mg tablet 0.5 mg PO DAILY restless legs 08/19/23 tiotropium bromide 2.5 mcg/actuation mist for inhalation (Spiriva Respimat) 2 inh inhalation Q24H breathing 08/19/23 furosemide 40 mg tablet 20 mg (1/2 x 40 mg) PO DAILY diuretic #30 tabs 08/23/23 nicotine 14 mg/24 hr daily transdermal patch 14 mg transdermal DAILY 30 days #28 ea 08/23/23 potassium chloride 10 mEq capsule,extended release 10 meq PO DAILY #30 caps 08/23/23 prednisone 20 mg tablet See Taper PO BREAKFAST #32 tabs 08/23/23 acetaminophen 500 mg tablet 1,000 mg (2 x 500 mg) PO Q8H PRN PRN Headache/Fever (T>102.5) #0 tabs 09/18/23 cefdinir 300 mg capsule 300 mg PO BID #3 caps 09/18/23 food supplemt, lactose-reduced 0.08 gram-1.5 kcal/mL oral liquid (Ensure Plus High Protein) 120 ml PO TIDCM #0 mL 09/18/23 guaifenesin 1,200 mg tablet, extended release 12 hr (Mucus Relief ER) 1,200 mg PO BID #0 tabs 09/18/23 prednisone 10 mg tablet 10 mg PO DAILY #40 tabs 09/18/23 Hospital Course Procedures EKG and - (Chest x-ray) Summary of Care Provided Minutes Spent on Discharge: 38 Hospital Course: Mrs. Kingston is a 78-year-old white female who presented to the emergency department at [facility] on 09/12/2023 for shortness of breath. Patient has a history of chronic hypoxic respiratory failure and requires supplemental home oxygen at 3 L. She follows with Dr. Koenig periodically however has not seen him for some time. She still continues to smoke intermittently. Workup on presentation showed an elevated white count at 20,000, hemoglobin of 9.8, chemistry panel was overall unremarkable other than a markedly elevated bicarb at 45 which is consistent with her baseline and her UA was overall unimpressive. Chest x-ray showed bilateral pulmonary infiltrates worse on the left with a small left pleural effusion and her oxygen saturations dropped which required up titration of her home oxygen from 3 L to 6 L to maintain oxygen saturation at 90%. She was given azithromycin and ceftriaxone initially on presentation however transition to meropenem due to multiple allergies to antibiotics when she was admitted. She was placed on steroids and aggressive pulmonary toilet as well. Strep pneumo and Legionella antigens were obtained and her strep pneumo antigen was found to be positive. Sputum culture was also consistent with strep pneumo. Respiratory viral panel and COVID and flu antigens were unremarkable. Her urine culture did grow Enterococcus however it was less than 10,000 CFU's per mL and considered contaminant as the patient was not symptomatic either. With treatment her oxygenation slowly improved and she was able to be weaned back to her baseline oxygen of 3 L by the time of discharge. Saturations at the time of discharge were anywhere from 89 to 96% on her baseline 3 L. She has poor overall exercise tolerance. Infectious disease was consulted given her allergies to medications and recommended we discharge her on Omnicef for another 24 hours as she did tolerate ceftriaxone during her hospital course. Prescription for 3 doses of this was ordered at the time of discharge to be completed at [facility]. She has had a slowly worsening anemia with time. It appears she was placed on supplemental iron however iron studies are not consistent with iron deficiency. She states she has black stools that started at the time of iron supplementation. We were unable to obtain a guaiac and with her iron studies not being consistent with iron deficiency and her hemoglobin being stable during her hospital course acute intervention was not required however we did set up an outpatient follow-up with gastroenterology to be considered for outpatient follow-up with regards to EGD and colonoscopy. She is not chronically on any anticoag lesion other than antiplatelet therapy with aspirin 81 mg a daily and this will be continued at discharge. Hemoglobin at the time of discharge was 8.1. Hemoglobin did drop slightly during her hospitalization however I do suspect she was mildly volume overloaded as her Lasix had been held. We did give her 1 dose of Lasix prior to discharge and her hemoglobin did improve. I did recommend that a repeat hemoglobin be obtained on 09/24/2023 to reassess her hemoglobin. Follow-up with Dr. Raines from gastroenterology was made for the patient and she will be seen on 10/21/2023 in his office. I have also commended that she obtain a follow-up with Dr. Koenig within the next month following discharge to be sure she is optimized by respiratory stand weight. Patient still was smoking intermittently prior to admission. We strongly advised that she discontinue smoking. She did require ongoing therapy services at the time of discharge and was excepted for readmission to [facility] and pre-CERT was obtained on 09/18/2023. She was discharged there in stable condition on 09/18/2023. Discharge diagnoses: Acute on chronic hypoxic and hypercapnic respiratory failure Strep pneumo pneumonia Acute exacerbation of COPD Bacteriuria Anemia COPD Severe malnutrition due to decreased oral intake and pulmonary cachexia Chronic pain GERD. Restless leg syndrome neck Constipation Depression Tobacco abuse Physical Exam Narrative Patient states her breathing is overall better. Back to her baseline oxygen requirement. States she feels tired and weak overall. We did discuss that this is likely to be expected given the fact that she had a pneumonia and has been hospitalized. She voiced understanding. Const alert, oriented x3, no apparent distress and no limitations; Negative for average body habitus, healthy appearing or well nourished Constitutional Narrative: Cachectic, older, white female, sitting up in a chair at the bedside, appears older than stated age, currently on 3 L nasal cannula which is her baseline and appears comfortable, nontoxic General Appearance: cooperative, comfortable, well kempt and well developed Orientation / Consciousness: awake, oriented to person, oriented to place and oriented to time Exam Limitations: no limitations Nutritional Appearance: cachectic HEENT normocephalic, head/scalp atraumatic and moist oral mucous membranes; Negative for hearing grossly normal bilaterally HEENT Narrative: Edentulous, Mallampati 1-2, no thrush, mild hearing loss, bilateral temporal wasting Eyes PERRL and EOMs intact bilaterally Eyes Narrative: Conjunctiva are pale bilaterally Neck no lymphadenopathy, supple and no JVD Resp normal respiratory effort, no retractions, no use of accessory muscles and No clear to auscultation bilaterally Resp Narrative: Markedly diminished diffusely with few scattered rhonchi bilaterally worse on the right base than the left Auscultation: rhonchi; Negative for rales or wheezes Cardio regular rate, regular rhythm, S1 normal heart sound, S2 normal heart sound, no murmurs, no rub, no gallops and no clicks GI normal to inspection, nondistended, normoactive bowel sounds, soft to palpation and non-tender GI Narrative: Scaphoid abdomen Extremity Extremity Narrative: Decreased lean muscle mass, no cyanosis or clubbing Skin no rashes or lesions noted, skin turgor normal and no jaundice Skin Narrative: Skin is thin and fragile Neuro oriented x3, CN's II-XII intact bilaterally, moves all extremities and no focal motor deficits Neuro Narrative: Significant generalized weakness noted proximal greater than distal Speech: speech normal Psych affect normal Psych Narrative: Patient interacts appropriately, eye contact is good, very pleasant Medical Records Data Medical Nutrition Assessment Dietitian: Malnutrition Criteria Met Start: 09/13/23 16:11 Freq: Status: Active Protocol: Document 09/13/23 16:11 [facility] (Rec: 09/13/23 16:11 [facility] [id number]) Nutrition Malnutrition Evidence of Malnutrition Exists Yes Malnutrition (moderate): Chronic Evidenced By Suboptimal Energy Intake ( Moderate),Physical Changes ( Severe) Clinical Problem Chronic Disease or Condition Related Malnutrition Etiology related to physiological changes decreasing oral intakes Signs/Symptoms as evidenced by moderate to severe muscle and fat wasting per NFPA (clavicles, temples, buccal, deltoids, etc.) and decreased oral intakes less than 75% of estimated nutrient needs for > 1 month. Status Active Problem Recommendation Dietitian Recommendations/Changes Continue with Regular diet for liberalization. Pt agreed to Ensure Plus High Protein 120mL TID w/ medpass to help increase oral intakes. Will continue to follow & modify nutrition interventions as needed. Weight / BMI Weight Weight: 39.2 kg Body Mass Index (BMI) 16.9 ABG / Lab / Microbiology Data 09/18/23 11:51 09/18/23 06:05 Laboratory: Laboratory Results - last 24 hr 09/18/23 06:05: WBC 10.4, RBC 2.46 L, Hgb 7.1 L, Hct 24.2 L, MCV 98.4, MCH 28.9, MCHC 29.3 L, RDW Std Deviation 62.4 H, RDW Coeff of Jacinto 18.1 H, Plt Count 606 H, MPV 9.9, Immature Gran % (Auto) 2.900 H, Neut % (Auto) 80.9 H, Lymph % (Auto) 10.1 L, [place] % (Auto) 5.7, Eos % (Auto) 0.1, Baso % (Auto) 0.3, Absolute Neuts (auto) 8.4 H, Absolute Lymphs (auto) 1.05, Nucleated RBC % 0.2, Sodium 145, Potassium 4.5, Chloride 101, Carbon Dioxide 44.0 H, Anion Gap 0 L, BUN 13, Creatinine 0.16 L, Estim Creat Clear Calc 29.16, Est GFR (MDRD) Af Amer 574, Est GFR (MDRD) Non-Af 474, BUN/Creatinine Ratio 81.3 H, Glucose 73 L, Calcium 7.8 L 09/18/23 11:51: Hgb 8.1 L Microbiology: Microbiology 09/12/23 11:45 Blood Culture (Wb) - Left Hand Blood Culture - Final No growth in 5 days. 09/12/23 11:30 Blood Culture (Wb) - Right Wrist Blood Culture - Final No growth in 5 days. 09/12/23 18:15 Sputum, Expectorated/Coughed Gram Stain - Final 09/12/23 18:15 Sputum, Expectorated/Coughed Respiratory Culture - Final Streptococcus pneumoniae 09/12/23 12:50 Urine, Catheterized Urine Culture - Final Enterococcus faecalis 09/12/23 15:37 Mucosa - Nasopharyngeal Respiratory Panel (PCR) - Final 09/12/23 12:50 Urine Catheter - Catheter Legionella Antigen - Final 09/12/23 12:50 Urine Catheter - Catheter Streptococcus pneumoniae Antigen (M - Final 09/12/23 12:20 Nasal Secretion SARS-CoV-2 & FLU Antigen (Rapid) - Final 09/12/23 12:20 Interface Orders Rapid RSV (DFA) - Final D/C Instructions Discharge Diet: No restrictions Discharge Activity: Return to Normal Activity Meaningful Use Info Meaningful Use Diagnoses (Choose all that apply): None applicable Discharge Plan Admission Admit Date/Time: 09/12/23 15:33 Primary Reason for Your Visit: Shortness of breath Attending Provider: Essence Anne Primary Care Provider: EMMA DILLON Consulting Providers: Abbe Art; Harshal Weir; Felix Davison Discharge Orders/Prescriptions Prescriptions: New guaifenesin [Mucus Relief ER] 1,200 mg Tablet Extended Release 12hr 1,200 mg PO BID Qty: 0 0RF Ensure Plus High Protein 0.08 gram-1.5 kcal/mL Liquid 120 ml PO TIDCM Qty: 0 0RF acetaminophen 500 mg Tablet 1,000 mg PO Q8H PRN PRN (Reason: Headache/Fever (T>102.5)) Qty: 0 0RF cefdinir 300 mg capsule 300 mg PO BID Qty: 3 0RF Rx Instructions: Patient has 3 doses left. 1 this evening and 2 doses tomorrow then stop prednisone 10 mg tablet 10 mg PO DAILY Qty: 40 0RF Rx Instructions: 40 mg x 4 days, 30 mg x 4 days, 20 mg x 4 days, 10 mg x 4 days then stop Continued famotidine 40 tablet 40 mg PO DAILY [id number]-[id number]-[id number] Tablet 1 tab PO DAILY albuterol sulfate 1.25 mg/3 mL Solution For Nebulization 1.25 mg INHALATION Q4H citalopram 20 mg tablet 20 mg PO QHS loratadine 10 mg Tablet 10 mg PO DAILY fluticasone furoate-vilanterol [Breo Ellipta] 200-25 mcg/dose blister with device 1 inh INHALATION BID aspirin 81 mg Tablet,Delayed Release (Dr/Ec) 81 mg PO DAILY ferrous sulfate [FeroSul] 325 mg (65 mg iron) tablet 325 mg PO BID fluticasone propionate 50 mcg/actuation spray,suspension 1 spray INTRANASAL BID sennosides-docusate sodium [2-in-1 Laxative] 8.6-50 mg tablet 2 tab-cap PO QHS ipratropium-albuterol 0.5 mg-3 mg(2.5 mg base)/3 mL Solution For Nebulization 3 ml inhalation Q4HWA.RT 14 Days Qty: 180 0RF ropinirole 0.5 mg tablet 0.5 mg PO DAILY omeprazole 20 mg capsule,delayed release(DR/EC) 20 mg PO DAILY gabapentin 300 mg capsule 300 mg PO Q12H Spiriva Respimat 2.5 mcg/actuation mist 2 inh INHALATION Q24H nicotine 14 mg/24 hr Patch 24 Hour 14 mg transdermal DAILY 30 Days Qty: 28 0RF potassium chloride 10 mEq capsule, extended release 10 meq PO DAILY Qty: 30 0RF prednisone 20 mg Tablet See Taper PO BREAKFAST Qty: 32 0RF Taper: Prednisone Taper 60 mg WITH BREAKFAST for 3 Days and 0 Hour 50 mg WITH BREAKFAST for 3 Days and 0 Hour 40 mg WITH BREAKFAST for 3 Days and 0 Hour 30 mg WITH BREAKFAST for 3 Days and 0 Hour 20 mg WITH BREAKFAST for 3 Days and 0 Hour 10 mg WITH BREAKFAST for 3 Days and 0 Hour furosemide 40 MG tablet 20 mg PO DAILY Qty: 30 0RF Patient Comments: water pill Referrals / Follow Up: EMMA DILLON [Other] EMMA DILLON [Other] Friend,Ronal, [Med Staff - Active Staff] - 10/21/23 8:45 am Harjinder Power MD [Med Staff - Active Staff] - None Harshal Koenig MD [Med Staff - Active Staff] - Within 1 Month (Call to schedule appointment) Disposition Disposition (needs filled in before D/C Order can be placed): Long Term Facility Charges/Coding Visit Charges Inpatient E&M: 32782 SNF Disch >30 Min
--- NOTE | 2023-09-18 14:30 | PHA.DC.MR.R ---
Pharmacy [place] Med Reconciliation Pharmacy Service has performed discharge medication reconciliation for this patient. Duplicate prednisone taper removed, started 08/23 for 18 days, should be completed. The patient's discharge medication list was reviewed for discrepancies and discrepancies were resolved. Medications at Discharge Home Medications famotidine 40 mg tablet 40 mg PO DAILY GERD 10/24/18 albuterol sulfate 1.25 mg/3 mL solution for nebulization 1.25 mg inhalation Q4H sob 04/04/21 citalopram 20 mg tablet 20 mg PO QHS mood 04/04/21 fluticasone furoate 200 mcg-vilanterol 25 mcg/dose inhalation powder (Breo Ellipta) 1 inh inhalation BID copd 04/04/21 loratadine 10 mg tablet 10 mg PO DAILY allergies 04/04/21 btdmapweddou-hikojbrz-jbfrpk tablet 1 tab PO DAILY supplement 04/04/21 aspirin 81 mg tablet,delayed release 81 mg PO DAILY heart health 04/20/21 ferrous sulfate 325 mg (65 mg iron) tablet (FeroSul) 325 mg PO BID Iron Supplement 05/15/23 fluticasone propionate 50 mcg/actuation nasal spray,suspension 1 spray intranasal BID Allergies 05/15/23 sennosides 8.6 mg-docusate sodium 50 mg tablet (2-in-1 Laxative) 2 tab-cap PO QHS stool softener 05/15/23 ipratropium 0.5 mg-albuterol 3 mg (2.5 mg base)/3 mL nebulization soln 3 ml inhalation Q4HWA.RT breathing 14 days #180 mL 05/21/23 gabapentin 300 mg capsule 300 mg PO Q12H pain 08/19/23 omeprazole 20 mg capsule,delayed release 20 mg PO DAILY reflux 08/19/23 ropinirole 0.5 mg tablet 0.5 mg PO DAILY restless legs 08/19/23 tiotropium bromide 2.5 mcg/actuation mist for inhalation (Spiriva Respimat) 2 inh inhalation Q24H breathing 08/19/23 furosemide 40 mg tablet 20 mg (1/2 x 40 mg) PO DAILY diuretic #30 tabs 08/23/23 nicotine 14 mg/24 hr daily transdermal patch 14 mg transdermal DAILY 30 days #28 ea 08/23/23 potassium chloride 10 mEq capsule,extended release 10 meq PO DAILY #30 caps 12/01/23 acetaminophen 500 mg tablet 1,000 mg (2 x 500 mg) PO Q8H PRN PRN Headache/Fever (T>102.5) #0 tabs 09/18/23 cefdinir 300 mg capsule 300 mg PO BID #3 caps 09/18/23 food supplemt, lactose-reduced 0.08 gram-1.5 kcal/mL oral liquid (Ensure Plus High Protein) 120 ml PO TIDCM #0 mL 09/18/23 guaifenesin 1,200 mg tablet, extended release 12 hr (Mucus Relief ER) 1,200 mg PO BID #0 tabs 09/18/23 prednisone 10 mg tablet 10 mg PO DAILY #40 tabs 09/18/23
--- NOTE | 2023-09-18 14:37 | CASEMGMT ---
Social Work Per physician, pt is ready for discharge today. 7000 convalescent form completed in [facility] and sent along with discharge orders to [facility] via [facility]. Transportation arranged with [facility] for 4:00 sisal picker via [facility]. Phone call to pt's son Juan C and notified of dc. SW met with pt and she is agreeable to dc plan. Nursing and [facility] updated to discharge time. Disposition: [facility], skilled level of care under convalescent stay SÁNCHEZ Watkins
--- NOTE | 2023-09-18 14:47 | CASEMGMT ---
Social Work Discharge summary and disposition faxed to pt's care process manager at [facility], Nata Gamboa. SÁNCHEZ Watkins
--- NOTE | 2023-09-18 15:38 | NURSING ---
attempted to contact janeth weston, was put on hold for over 10 minutes and wasn't able to give report at this time
--- NOTE | 2023-09-18 15:47 | NURSING ---
attempted to contact [facility] again, was told no one available , they must be busy . left message that pt was going to be picked up @ approx 1600
== END 2023-09-18 16:24 | disposition skilled nursing facility (03) | DRG 193 ==
LOC: ED 15:18 → MS3 15:29
PROVIDERS: Admitting Provider Internal Medicine; Emergency Provider Emergency Medicine; Visit Provider Internal Medicine
DX: J13 Pneumonia due to Streptococcus pneumoniae (principal); J96.22 Acute and chronic respiratory failure with hypercapnia; J96.21 Acute and chronic respiratory failure with hypoxia; E44.0 Moderate protein-calorie malnutrition; R64 Cachexia; J44.0 Chronic obstructive pulmonary disease with (acute) lower respiratory infection; J44.1 Chronic obstructive pulmonary disease with (acute) exacerbation; J91.8 Pleural effusion in other conditions classified elsewhere; J90 Pleural effusion, not elsewhere classified; Z68.1 Body mass index [BMI] 19.9 or less, adult; J84.10 Pulmonary fibrosis, unspecified; G25.81 Restless legs syndrome; F32.A Depression, unspecified; D64.9 Anemia, unspecified; E78.00 Pure hypercholesterolemia, unspecified; K59.00 Constipation, unspecified; K21.9 Gastro-esophageal reflux disease without esophagitis; J15.69 Pneumonia due to other Gram-negative bacteria; Z79.51 Long term (current) use of inhaled steroids; Z79.82 Long term (current) use of aspirin; Z66 Do not resuscitate; R82.71 Bacteriuria; B96.89 Other specified bacterial agents as the cause of diseases classified elsewhere; G89.29 Other chronic pain
CPT/HCPCS: 36415; 71045; 80048; 80053; 81001; 82607; 82728; 82746; 83540; 83550; 83605; 83735; 84443; 85018; 85025; 85610; 85730; 87040; 87070; 87077; 87086; 87088; 87186; 87205; 87428; 87449; 87633; 87807; 93005; 94640; 94667; 94668; 94762; 97110; 97162; 97166; 97530; 97535; 97802; 99252; 99285; 99406; J2185; J7030; J7040; J7050; P9612; A4216; G0463; J1940; J2916

== ENCOUNTER 2023-09-25 11:18 | Inpatient (IN) | payer MEDICARE, MEDICAID, SELFPAY ==
[2023-09-25] VITALS (12 sets, daily range): BP systolic 90–109; BP diastolic 55–77; PULSE 84–117; RESP 18–26; TEMP 36.4–36.6; O2SAT 92–100; BMI 17.8; BMI 15.0
--- NOTE | 2023-09-25 11:41 | RAD_ITS ---
INDICATION: Shortness of Breath EXAMINATION/TECHNIQUE: X-RAY - XR Chest 1 View COMPARISON: September 12, 2023 FINDINGS: LINES/DEVICES: None. LUNGS: There are persistent bilateral prominent interstitial markings. There are a few ill-defined opacities within the bilateral mid and left lower lung. The lungs are hyperinflated. No pneumothorax. MEDIASTINUM AND CARDIOVASCULAR STRUCTURES: Cardiac silhouette not enlarged. Central airways and mediastinal contour are unremarkable. BONES AND SOFT TISSUES: Unremarkable. RAD/Chest 1 View (Portable) IMPRESSION: Prominent interstitial markings may be secondary to edema and/or an infectious process. Bilateral ill-defined opacities may reflect atelectasis and/or pneumonia. Electronically Signed: Herlinda Levy MD at 12:42 EST ,
--- NOTE | 2023-09-25 11:43 | EDS_ITS ---
HPI History of Present Illness Chief Complaint: Shortness of Breath Narrative Narrative: 78-year-old female past medical history of COPD and chronic hypoxic respiratory failure presents from [facility] with increasing shortness of breath. She relates history that she was recently discharged from the hospital with pneumonia. She is an intermittent smoker and wears 3 L of oxygen at all times. Her symptoms began again long yesterday afternoon into the early evening. She states she only coughs when she gets a breathing treatment. Her last breathing treatment was this morning prior to arrival via squad. She is not currently on steroids. She denies any weight gain or swelling of her legs, no history of CHF. She presents because of the increasing shortness of breath with history of pneumonia. PFSH PFSH Medical History Anxiety Asthma Atrial fibrillation Bleeding disorder cataracts Congestive heart failure (CHF) COPD (chronic obstructive pulmonary disease) Depression Gout High cholesterol Hx of gallstones Migraines Neuropathy On home O2 Osteoarthritis Osteoporosis Sleep apnea Smoker Home Medications famotidine 40 mg tablet 40 mg PO DAILY GERD 10/24/18 [History Last Taken 08/18/23] albuterol sulfate 1.25 mg/3 mL solution for nebulization 1.25 mg inhalation Q4H sob 04/04/21 [History Last Taken 04/03/21] citalopram 20 mg tablet 20 mg PO QHS mood 04/04/21 [History Last Taken 08/18/23] fluticasone furoate 200 mcg-vilanterol 25 mcg/dose inhalation powder (Breo Ellipta) 1 inh inhalation BID copd 04/04/21 [History Last Taken 08/18/23] loratadine 10 mg tablet 10 mg PO DAILY allergies 04/04/21 [History Last Taken 08/18/23] wmuepdmkucin-qcuemgre-bjxrbt tablet 1 tab PO DAILY supplement 04/04/21 [History Last Taken 08/18/23] aspirin 81 mg tablet,delayed release 81 mg PO DAILY heart health 04/20/21 [History Last Taken 08/18/23] ferrous sulfate 325 mg (65 mg iron) tablet (FeroSul) 325 mg PO BID Iron Supplement 05/15/23 [History Last Taken 08/18/23] fluticasone propionate 50 mcg/actuation nasal spray,suspension 1 spray intranasal BID Allergies 05/15/23 [History Last Taken 08/18/23] sennosides 8.6 mg-docusate sodium 50 mg tablet (2-in-1 Laxative) 2 tab-cap PO QHS stool softener 05/15/23 [History Last Taken 08/18/23] ipratropium 0.5 mg-albuterol 3 mg (2.5 mg base)/3 mL nebulization soln 3 ml inhalation Q4HWA.RT breathing 14 days #180 mL 05/21/23 [Rx Last Taken Unknown] gabapentin 300 mg capsule 300 mg PO Q12H pain 08/19/23 [History Last Taken 08/18/23] omeprazole 20 mg capsule,delayed release 20 mg PO DAILY reflux 08/19/23 [History Last Taken 08/18/23] ropinirole 0.5 mg tablet 0.5 mg PO DAILY restless legs 08/19/23 [History Last Taken 08/18/23] tiotropium bromide 2.5 mcg/actuation mist for inhalation (Spiriva Respimat) 2 inh inhalation Q24H breathing 08/19/23 [History Last Taken 08/18/23] furosemide 40 mg tablet 20 mg (1/2 x 40 mg) PO DAILY diuretic #30 tabs 08/23/23 [Rx Last Taken 08/18/23] nicotine 14 mg/24 hr daily transdermal patch 14 mg transdermal DAILY 30 days #28 ea 08/23/23 [Rx Last Taken Unknown] potassium chloride 10 mEq capsule,extended release 10 meq PO DAILY #30 caps 08/23/23 [Rx Last Taken Unknown] acetaminophen 500 mg tablet 1,000 mg (2 x 500 mg) PO Q8H PRN PRN Headache/Fever (T>102.5) #0 tabs 09/18/23 [Rx Last Taken Unknown] food supplemt, lactose-reduced 0.08 gram-1.5 kcal/mL oral liquid (Ensure Plus High Protein) 120 ml PO TIDCM #0 mL 09/18/23 [Rx Last Taken Unknown] guaifenesin 1,200 mg tablet, extended release 12 hr (Mucus Relief ER) 1,200 mg PO BID #0 tabs 09/18/23 [Rx Last Taken Unknown] prednisone 10 mg tablet 10 mg PO DAILY #40 tabs 09/18/23 [Rx Last Taken Unknown] Allergy/AdvReac Type Severity Reaction Status Date / Time bupropion HCl Allergy Anaphylaxis Verified 08/19/23 12:57 [From Wellbutrin] cephalexin monohydrate Allergy Anaphylaxis Verified 09/12/23 15:45 [From Keflex] levofloxacin Allergy Anaphylaxis Verified 09/12/23 15:45 Penicillins [PCN] Allergy Anaphylaxis Verified 09/12/23 15:45 Milk Containing Products AdvReac phlegm Verified 08/19/23 12:57 (Dairy) [Milk Containing Products] Family History Father Colon cancer Heart disease Surgical History History of appendectomy History of cholecystectomy History of hysterectomy History of incisional hernia repair Status post hip surgery Social History Smoking Status: Current some day smoker tobacco type: cigarettes alcohol intake: never substance use type: does not use ROS ROS ED ROS Narrative Constitutional: No fever, no chills. HEENT: No sore throat. No neck pain. No loss of vision. No rhinorrhea. Cardiovascular: No chest pain. No palpitations. No pedal edema. Respiratory: Occasional cough, positive shortness of breath. Abdominal: No abdominal pain. No nausea. No vomiting. Genitourinary: No dysuria. No hematuria. Musculoskeletal: No myalgias. No arthralgias. Neurologic: No headaches. No dizziness. No lightheadedness. Skin: No rash. No change in color. Psychiatric: No depression. No anxiety. EXAM Physical Exam Narrative Exam Narrative: Afebrile. Vital signs noted. Cachexia. HEENT: Normocephalic. Atraumatic. PERRL, EOMI. Neck soft and supple. No point tenderness or step off. Cardiovascular: Tachycardia no murmurs, rubs, or gallops appreciated. Respiratory: Positive tachypnea. Positive rhonchi with decreased breath sounds bilateral bases. Gastrointestinal: Abdomen soft, nontender, with normoactive bowel sounds. No rebound or guarding. Neurological: Awake. Alert. Nonfocal, nonlateralizing. Skin: No rash. Normal color. No pallor. Musculoskeletal: No pedal edema. Full range of motion extremities. Const Vital Signs: 09/25/23 11:20 09/25/23 11:24 09/25/23 11:49 Temperature 97.9 F Temperature Source Temporal Pulse Rate 117 H Respiratory Rate 24 H Respiratory Effort Short of Breath Respiratory Depth Shallow Respiratory Pattern Tachypnea Blood Pressure 90/77 Blood Pressure Mean 81 Pulse Ox 93 92 Oxygen Delivery Method Nasal Cannula Nasal Cannula Nasal Cannula Oxygen Flow Rate (L/min) 4 4 4 09/25/23 12:34 09/25/23 13:55 Temperature Temperature Source Pulse Rate 110 H 103 H Respiratory Rate 21 H 18 Respiratory Effort Respiratory Depth Respiratory Pattern Blood Pressure 90/55 L 99/63 Blood Pressure Mean 66 75 Pulse Ox 92 97 Oxygen Delivery Method Nasal Cannula Nasal Cannula Oxygen Flow Rate (L/min) 4 4 MDM MDM MDM Narrative Medical decision making narrative: Concern is for worsening pneumonia versus COPD exacerbation. Also in the differential is congestive heart failure but she does not have a history of this. I do feel that she is probably having more of a COPD exacerbation. She already received an aerosolized treatment. She was administered Solu-Medrol 125 mg intravenously. I reviewed her prior chart and she had bilateral pneumonia with small pleural effusion and she completed antibiotic treatment and was given Omnicef. Lower concern for sepsis, but given that she is tachycardic I will obtain a lactic acid. CBC and CMP were also ordered along with EKG and troponin. EKG interpreted by myself independently shows sinus tachycardia 115 bpm without ectopy or acute ST changes. No STEMI. I reviewed her laboratory work and she has a leukocytosis of 25.1 with hemoglobin stable at 9.5, hematocrit 31.8. Platelet count is elevated at 825. She has had thrombophilia in the past on the last 2 values, but was normal prior to this. This may be more of an acute phase reactant. I reviewed her CMP and she has normal sodium of 141, potassium 4.3, CO2 is elevated at 38.0 consistent with her COPD and chronic respiratory failure. Glucose is appropriately elevated at 112 with an anion gap low at 3. BUN is normal at 14 with creatinine 0.34. Chest x-ray in 1 view interpreted by myself independently shows hazy opacities bilaterally. I am unsure if this is a resolving pneumonia or new or 1. I reviewed the radiology report which confirms my independent interpretation of her 1 view chest x-ray. I reviewed her prior inpatient record and she had been started on Rocephin and azithromycin and then changed to meropenem. She has multiple allergies to cephalexin, levofloxacin, and penicillins. It was reported and documented that ID had been consulted and she was discharged on Omnicef for 24 hours. As I feel this may be more of an HCAP or hospital associated pneumonia, she was started on vancomycin and meropenem as she has an allergy to fluoroquinolones. Blood cultures will be obtained. I reviewed her troponin which is normal, and her BNP is also normal so I have low suspicion for acute coronary syndrome or congestive heart failure as a cause of her increased oxygen demand, up to 4 L. She has borderline hypotension with a systolic at 99, but she is cachectic and only weighs 41 kg which may be her baseline blood pressure. Her lactic acid is normal. At this point in time, I discussed patient with Dr. White appears for admission to the PCU given her leukocytosis, thrombophilia, and pneumonia. Patient is in stable condition. History & Record Review Discussion w/independent historian: Patient Additional record(s) reviewed:: Prior inpatient record, Prior ED visit and Prior labs Lab Data Attestation: I reviewed the patient's lab results. Labs: Laboratory Results - last 24 hr 09/25/23 12:04 WBC 25.1 H RBC 3.11 L Hgb 9.5 L Hct 31.8 L MCV 102.3 H MCH 30.5 MCHC 29.9 L RDW Std Deviation 74.4 H RDW Coeff of Jacinto 19.8 H Plt Count 825 H* MPV 9.5 Immature Gran % (Auto) 0.800 Neut % (Auto) 93.4 H Lymph % (Auto) 1.9 L [place] % (Auto) 3.7 Eos % (Auto) 0.0 Baso % (Auto) 0.2 Absolute Neuts (auto) 23.4 H Absolute Lymphs (auto) 0.47 L Nucleated RBC % 0 Differential Comment SCANNED Diff Path Review May foll Platelet Estimate MKD INC Hypochromasia 1+ Anisocytosis 2+ Microcytosis 1+ Macrocytosis 1+ Sodium 141 Potassium 4.3 Chloride 100 Carbon Dioxide 38.0 H Anion Gap 3 L BUN 14 Creatinine 0.34 L Estim Creat Clear Calc 30.79 Est GFR (MDRD) Af Amer 244 Est GFR (MDRD) Non-Af 202 BUN/Creatinine Ratio 41.8 H Glucose 112 H Lactic Acid 1.6 Calcium 8.5 Troponin I High Sens 10 B-Natriuretic Peptide 14.4 Radiography Diagnostic Testing: Clinical Impression(s) from Imaging Studies Chest X-Ray 09/25/23 11:41 IMPRESSION: Prominent interstitial markings may be secondary to edema and/or an infectious process. Bilateral ill-defined opacities may reflect atelectasis and/or pneumonia. Electronically Signed: Herlinda Levy MD at 12:42 EST , Management Discussion w/another healthcare provider: Hospitalist (Dr. Alda Gan) Discharge Plan Dx/Rx/DC Orders Clinical Impression: Leukocytosis, Pneumonia, History of chronic respiratory failure, Thrombophilia Disposition Disposition: Acute Care Hospital [facility]
[2023-09-25] MEDS: MethylPREDNISolone 125 MG/2 ML Vial IV (11:50)
[2023-09-25] MEDS: 0.9% Normal Saline (500mL Bag) 500 ML 999 ML IV (11:50)
[2023-09-25 12:24] LABS: Absolute Lymphocyte Count 0.47 X10^3/uL (0.83-4.51); Absolute Neutrophil Count 23.4 X10^3/uL (2.0-7.7); Basophil# 0.04 X10^3/uL; Basophil% 0.2 % (0-1); Eosinophil# 0.01 X10^3/uL; Hematocrit 31.8 % (37-47); Hemoglobin 9.5 g/dL (12.0-15.0); Lymphocyte # 0.47 X10^3/ul (0.83-4.51); Lymphocyte % 1.9 % (19-41); Mean Corp Hgb Conc 29.9 g/dL (32-36); Mean Corpuscular Hgb 30.5 pg (27.0-32.0); Mean Corpuscular Volume 102.3 fL (81-99); Mean Platelet Vol. 9.5 fl (6.2-12.0); Monocyte# 0.94 X10^3/uL; Monocyte% 3.7 % (0-10); NRBC Flagged by Analyzer 0 % (0-5); Neutrophil # 23.43 X10^3/uL (2.7-7.7); Neutrophil % 93.4 % (47-70); POSITIVE COUNT YES; POSITIVE DIFFERENTIAL YES; POSITIVE MORPHOLOGY YES; RBC Distribution Width CV 19.8 % (11.6-14.6); RBC Distribution Width SD 74.4 fl (35.1-43.9); Red Blood Count 3.11 M/mm3 (4.2-5.4); White Blood Count 25.1 K/mm3 (4.4-11.0)
[2023-09-25 12:27] LABS: Anion Gap 3 (5-15); BUN 14 mg/dL (7-18); BUN/Creat Ratio 41.8 RATIO (10-20); Calcium,Total 8.5 mg/dL (8.5-10.1); Chloride 100 mmol/L (98-107); Creatinine, Serum 0.34 mg/dL (0.55-1.02); EST Glomerular Filtration Rate 202 mL/min (>60); Est Glom Filt Rate - Afr Amer 244 mL/min (>60); Estimated Creatinine Clearance 30.79 ml/min; Glucose 112 mg/dL (74-106); Potassium 4.3 mmol/L (3.5-5.1); Sodium Level 141 mmol/L (136-145); Troponin-I HS 10 pg/mL (3.0-54.0)
[2023-09-25 12:28] LABS: Differential Indicated SCAN CRITERIA MET; Platelet Count 825 K/mm3 (150-450)
[2023-09-25 12:33] LABS: Lactic Acid 1.6 mmol/L (0.4-1.9)
[2023-09-25 12:44] LABS: Differential Comment SCANNED
[2023-09-25 12:45] LABS: Platelet Estimate MKD INC (ADEQ)
[2023-09-25 12:46] LABS: Anisocytosis 2+; Hypochromasia 1+; Macrocytosis 1+; Microcytosis 1+
[2023-09-25 12:56] LABS: BNP,B-Type NATRIURETIC PEPTIDE 14.4 pg/mL (0-100)
--- OUTSIDE RECORDS SUMMARY | 2023-09-25 13:10 | XMS RPT_ITS | CCD ---
Author Name Unknown Address [address] [place] [address] Organization [facility] Care Team Providers Care Hydroponics Worker Name Role Phone RICCARDO FREEMAN MD Attending Unavailable RICCARDO FREEMAN MD Primary Care Unavailable RICCARDO FREEMAN MD Admitting Unavailable Allergies Allergy Classification Reported Allergen(s) Allergy Type Date of Onset Reaction(s) Facility Cephalosporins (antibiotic) (1 source) Cephalexin Drug Allergy [facility] Repository Penicillins (antibiotic) (1 source) Penicillins (Antibiotic) Drug Allergy [facility] Repository Problems Problem Classification Problem Date [...] Evaluation and management of inpatient [facility] Payers Date Payer Category Payer Unknown [id number] Unknown [id number] Clinical Note 04-11-2021 Note Date & Type Note Facility 04-11-2021 [facility] PROGRESS NOTE NAME ACCOUNT SEX AGE ADMIT DISCHARGE PT MED. RECORD# NUMBER DATE DATE TYPE DAVID [id number] F 75 03/27/21 1 LISETTE [id number] ROOM: [facility] DATE OF : 1945 DICTATING [...] okay for discharge to home or a senior living facility when cleared medically, having adequate pain control, and doing well with physical therapy. We will plan to see her back in the office in 2 weeks for reassessment, staple removal, and x-rays of the right hip. Please do not hesitate to contact us with any further orthopedic concerns. Dictated By: Natividad Rodrigues PA-C 03/28/21 07:51 JOB #: [id number] Transcribed By: christine 03/28/21 08:17 Electronically signed by: E-sign Natividad FORBES 04/11/21 07:44 Page 2 of 2 LISETTE HERNANDEZ Progress Note [facility] Clinical Note 04-10-2021 Note Date & Type Note Facility 04-10-2021 Note [facility] CONSULTATION REPORT NAME ACCOUNT SEX AGE ADMIT DISCHARGE PT MED. RECORD# NUMBER DATE DATE TYPE DAVID [id number] F 75 03/27/2021 1 LISETTE [id number] ROOM: [facility] DATE OF : 1945 DICTATING [...] roll. Page 1 of 2 LISETTE HERNANDEZ Day Care Teacher Report LISETTE HERNANDEZ : 1945 DIAGNOSTIC DATA: [...] Geovanny Pearl MD 03/27/2021 06:57 JOB #: [id number] Transcribed By: christine 03/27/2021 07:15 Electronically signed by: Dr. Geovanny Pearl MD 04/10/21 07:58 Page 2 of 2 LISETTE HERNANDEZ Day Care Teacher Report [facility] History and physical note 04-06-2021 Note Date & Type Note Facility 04-06-2021 Note [facility] HISTORY & PHYSICAL NAME ACCOUNT SEX AGE ADMIT DISCHARGE PT MED. RECORD# NUMBER DATE DATE TYPE DAVID [id number] F 75 03/26/21 1 LISETTE [id number] ROOM: [facility] DATE OF : [birth year] DICTATING [...] Yobani Hendrickson MD 03/27/21 01:33 JOB #: [id number] Transcribed By: [email or web address] 03/27/21 04:31 Electronically signed by: E-Sign: YOBANI HENDRICKSON MD 04/06/21 11:35 Update to H&P: [ ] No changes: I have examined the patient and reviewed the H&P and there are no changes. [ ] As previously dictated with the following changes: PHYSICIAN SIGNATURE: TIME: DATE: Page 3 of 3 LISETTE HERNANDEZ History & Physical [facility] Summary Purpose Family History No Family [...] BE BASED ON THE PRIMARY CLINICAL RECORDS. [employer] [facility]. provides no warranty or guarantee of the accuracy or completeness of information in this document.
--- NOTE | 2023-09-25 13:56 | ED.RN ---
pt is a difficult iv access, the access she does have does not want to draw. lab called to obtain cultures. waiting for them before atb's are started.
--- NOTE | 2023-09-25 14:30 | PCM.HP.STD ---
HPI - General General Date of Admission: 09/25/23 Date of Service: 09/25/23 Chief Complaint: Increasing SOB HPI Narrative LISETTE HERNANDEZ, is a 78-year-old female history of COPD and chronic hypoxic respiratory failure on chronic 3 L home O2, A-fib, anxiety, gout, GERD who presented to [facility] 09/25/2023 from [facility] for increased shortness of breath. She was recently discharged 09/18 from the hospital after being treated for pneumonia and had been doing fair however symptoms began again yesterday afternoon and early evening. Primarily only coughing when she gets breathing treatments but is short of breath, not presently on steroids any longer. No weight gain. In the ED patient given Solu-Medrol and after chest x-ray concerning for infectious process white blood cell count of 25 she was given vancomycin and meropenem. In ED patient also blood pressure 90/55 with respiratory rate 24 and O2 sats 92% on 4 L O2 with mild tachycardia of 110 117. Given HAP with her current distress and symptoms hospitalist contacted for admission. Patient evaluated bedside. She reports she was feeling better until yesterday when she slowly had increasing shortness of breath, also reports she is had increasingly productive cough with thick yellow sputum. No fevers or chills, no chest pain, no swelling anywhere, reports continued increased shortness of breath and cough and is agreeable to admission. PFSH Medical History Anxiety Asthma Atrial fibrillation Bleeding disorder cataracts Congestive heart failure (CHF) COPD (chronic obstructive pulmonary disease) Depression Gout High cholesterol Hx of gallstones Migraines Neuropathy On home O2 Osteoarthritis Osteoporosis Sleep apnea Smoker Home Medications famotidine 40 mg tablet 40 mg PO DAILY GERD 10/24/18 [History Last Taken 08/18/23] albuterol sulfate 1.25 mg/3 mL solution for nebulization 1.25 mg inhalation Q4H SHORTNESS OF BREATH 04/04/21 [History Last Taken 09/25/23] citalopram 20 mg tablet 20 mg PO QHS mood 04/04/21 [History Last Taken 08/18/23] fluticasone furoate 200 mcg-vilanterol 25 mcg/dose inhalation powder (Breo Ellipta) 1 inh inhalation BID copd 04/04/21 [History Last Taken 08/18/23] loratadine 10 mg tablet 10 mg PO DAILY ALLERGIES 04/04/21 [History Last Taken 09/25/23] lsscncijdgfg-gfczskku-qmkwzc tablet 1 tab PO DAILY supplement 04/04/21 [History Last Taken 08/18/23] aspirin 81 mg tablet,delayed release 81 mg PO DAILY HEART HEALTH 04/20/21 [History Last Taken 09/25/23] ferrous sulfate 325 mg (65 mg iron) tablet (FeroSul) 325 mg PO BID SUPPLEMENT 05/15/23 [History Last Taken 09/25/23] fluticasone propionate 50 mcg/actuation nasal spray,suspension 1 spray intranasal BID ALLERGIES 05/15/23 [History Last Taken 09/25/23] sennosides 8.6 mg-docusate sodium 50 mg tablet (2-in-1 Laxative) 2 tab-cap PO QHS stool softener 05/15/23 [History Last Taken 08/18/23] ipratropium 0.5 mg-albuterol 3 mg (2.5 mg base)/3 mL nebulization soln 3 ml inhalation Q4HWA.RT breathing 14 days #180 mL 05/21/23 [Rx Last Taken Unknown] gabapentin 300 mg capsule 300 mg PO BID PAIN 08/19/23 [History Last Taken 09/25/23] omeprazole 20 mg capsule,delayed release 20 mg PO DAILY reflux 08/19/23 [History Last Taken 08/18/23] ropinirole 0.5 mg tablet 0.5 mg PO DAILY restless legs 08/19/23 [History Last Taken 08/18/23] tiotropium bromide 2.5 mcg/actuation mist for inhalation (Spiriva Respimat) 2 inh inhalation Q24H breathing 08/19/23 [History Last Taken 08/18/23] furosemide 40 mg tablet 20 mg (1/2 x 40 mg) PO DAILY FLUID #30 tabs 08/23/23 [Rx Last Taken 09/25/23] nicotine 14 mg/24 hr daily transdermal patch 14 mg transdermal DAILY 30 days #28 ea 08/23/23 [Rx Last Taken Unknown] potassium chloride 10 mEq capsule,extended release 10 meq PO DAILY #30 caps 08/23/23 [Rx Last Taken Unknown] acetaminophen 500 mg tablet 1,000 mg (2 x 500 mg) PO Q8H PRN PRN Headache/Fever (T>102.5) #0 tabs 09/18/23 [Rx Last Taken Unknown] food supplemt, lactose-reduced 0.08 gram-1.5 kcal/mL oral liquid (Ensure Plus High Protein) 120 ml PO TIDCM #0 mL 09/18/23 [Rx Last Taken Unknown] guaifenesin 1,200 mg tablet, extended release 12 hr (Mucus Relief ER) 1,200 mg PO BID CONGESTION #0 tabs 09/18/23 [Rx Last Taken Unknown] prednisone 10 mg tablet 10 mg PO DAILY #40 tabs 09/18/23 [Rx Last Taken Unknown] Allergy/AdvReac Type Severity Reaction Status Date / Time bupropion HCl Allergy Anaphylaxis Verified 08/19/23 12:57 [From Wellbutrin] cephalexin monohydrate Allergy Anaphylaxis Verified 09/12/23 15:45 [From Keflex] levofloxacin Allergy Anaphylaxis Verified 09/12/23 15:45 Penicillins [PCN] Allergy Anaphylaxis Verified 09/12/23 15:45 Milk Containing Products AdvReac phlegm Verified 08/19/23 12:57 (Dairy) [Milk Containing Products] Family History Father Colon cancer Heart disease Surgical History History of appendectomy History of cholecystectomy History of hysterectomy History of incisional hernia repair Status post hip surgery Social History Smoking Status: Current some day smoker tobacco type: cigarettes alcohol intake: never substance use type: does not use ROS ROS Narrative General: Denies fever/chills HENT: Has had some headaches, denies stuffy nose, denies sore throat EYES: Denies changes in vision Resp: Cough with thick yellow sputum and increased shortness of breath Cardiac: Denies chest pain GI: Denies abdominal pain, denies changes in bowel, denies nausea/vomiting : Denies changes in urination Extremity: Denies swelling MSK: Denies weakness Neuro: Denies any numbness/tingling Heme: Denies any bleeding or bruising Skin: Denies rashes Psychiatric: No complaints voiced Vital Signs Vital Signs Vital Signs: 09/25/23 11:20 09/25/23 11:24 09/25/23 11:49 Temperature 97.9 F Temperature Source Temporal Pulse Rate 117 H Respiratory Rate 24 H Respiratory Effort Short of Breath Respiratory Depth Shallow Respiratory Pattern Tachypnea Blood Pressure 90/77 Blood Pressure Mean 81 Pulse Ox 93 92 Oxygen Delivery Method Nasal Cannula Nasal Cannula Nasal Cannula Oxygen Flow Rate (L/min) 4 4 4 09/25/23 12:34 09/25/23 13:55 Temperature Temperature Source Pulse Rate 110 H 103 H Respiratory Rate 21 H 18 Respiratory Effort Respiratory Depth Respiratory Pattern Blood Pressure 90/55 L 99/63 Blood Pressure Mean 66 75 Pulse Ox 92 97 Oxygen Delivery Method Nasal Cannula Nasal Cannula Oxygen Flow Rate (L/min) 4 4 Weight Weight: 41.4 kg Body Mass Index (BMI) 17.8 Physical Exam Narrative General: Alert, oriented, appears cachectic HEENT: Atraumatic, normocephalic Eyes: Anicteric, normal conjunctiva, extraocular movements grossly intact Neck: Supple Respiratory: Some increased work of breathing, scattered wheezing left greater than right and somewhat coarse left greater than right Cardiovascular: Low-grade tachycardia GI: Soft, nontender, nondistended Extremities: No edema Musculoskeletal: Moving all extremities Neuro: No overt focal neurological deficits Skin: No rashes appreciated Psych: Cooperative Results Lab / Micro Data 09/25/23 12:04 09/25/23 12:04 Labs: Laboratory Results - last 24 hr 09/25/23 12:04: WBC 25.1 H, RBC 3.11 L, Hgb 9.5 L, Hct 31.8 L, MCV 102.3 H, MCH 30.5, MCHC 29.9 L, RDW Std Deviation 74.4 H, RDW Coeff of Jacinto 19.8 H, Plt Count 825 H*, MPV 9.5, Immature Gran % (Auto) 0.800, Neut % (Auto) 93.4 H, Lymph % (Auto) 1.9 L, [place] % (Auto) 3.7, Eos % (Auto) 0.0, Baso % (Auto) 0.2, Absolute Neuts (auto) 23.4 H, Absolute Lymphs (auto) 0.47 L, Nucleated RBC % 0, Differential Comment SCANNED, Diff Path Review January, Platelet Estimate MKD INC, Hypochromasia 1+, Anisocytosis 2+, Microcytosis 1+, Macrocytosis 1+, Sodium 141, Potassium 4.3, Chloride 100, Carbon Dioxide 38.0 H, Anion Gap 3 L, BUN 14, Creatinine 0.34 L, Estim Creat Clear Calc 30.79, Est GFR (MDRD) Af Amer 244, Est GFR (MDRD) Non-Af 202, BUN/Creatinine Ratio 41.8 H, Glucose 112 H, Lactic Acid 1.6, Calcium 8.5, Troponin I High Sens 10, B-Natriuretic Peptide 14.4 Imagaing Radiology Impression Chest X-Ray 09/25/23 11:41 IMPRESSION: Prominent interstitial markings may be secondary to edema and/or an infectious process. Bilateral ill-defined opacities may reflect atelectasis and/or pneumonia. Electronically Signed: Herlinda Levy MD at 12:42 EST , Assessment & Plan Assessment/Plan (1) HAP (hospital-acquired pneumonia): (2) Chronic hypoxic respiratory failure: (3) Chronic hypercapnic respiratory failure: (4) Anemia: (5) History of venous thromboembolism: PLAN: Plan #SOB 2/2 HAP -Concern for Hospital-acquired pneumonia given lab findings, imaging, symptoms -Sputum culture -Vancomycin, meropenem -Urine antigens -q4hr nebs -Will check COVID and viral panels -Mucinex -Feel presentation is most consistent with recurrence of pneumonia and do not feel patient needs further workup for PE at this time as symptoms came on gradually and are associated with productive cough and elevated white blood cell count however if any worsening tachycardia, dropping sats, not improving can consider CTA though this is much lower on the differential at this time # COPD with chronic hypoxic respiratory failure on 3 L of O2 -Patient to be on antibiotics as above -Nebs -Was started on steroids, feel it is reasonable to continue at this time #Thrombocytosis -Likely reactive -Treat underlying infection -Also screen for resp viral illness #GERD -Continue PPI #Hx PE -Previously on eliquis but it was discontinued earlier last year d/t severe anemia # Neuropathy -Continue home medication # Depression/anxiety -Continue home medications #DVT ppx: heparin subcu Alda Gan MD Charges/Coding Visit Charges Inpatient E&M: 83797 Init Hosp L2
--- NOTE | 2023-09-25 14:32 | NURSING ---
PCU DUMONT PNEUMONIA, LEUKOCYTOSIS, THROMBOPHILIA
[2023-09-25] MEDS: Meropenem 1 GM in 0.9% Normal Saline (100mL MB+) 100 ML IV (14:35)
[2023-09-25] MEDS: 0.9% Normal Saline (1000mL) 1,000 ML 999 ML IV ×2 (14:45→15:23)
[2023-09-25] MEDS: Vancomycin IV 1,000 MG/200 ML BAG 200 MG IV (16:32)
--- NOTE | 2023-09-25 16:59 | PCM.RX.CS ---
Consult Antibiotic Management Pharmacy has been consulted to manage selected antibiotic: Vancomycin Type of Intervention Type of Consult: New start Suspected Infection Suspected Infection: Pneumonia Labs Labs: Sodium 141 mmol/L (136-145) 09/25/23 12:04 Potassium 4.3 mmol/L (3.5-5.1) 09/25/23 12:04 Chloride 100 mmol/L (98-107) 09/25/23 12:04 Carbon Dioxide 38.0 mmol/L (21.0-32.0) H 09/25/23 12:04 Anion Gap 3 (5-15) L 09/25/23 12:04 BUN 14 mg/dL (7-18) 09/25/23 12:04 Creatinine 0.34 mg/dL (0.55-1.02) L 09/25/23 12:04 Est GFR (MDRD) Af Amer 244 mL/min (>60) 09/25/23 12:04 Est GFR (MDRD) Non-Af 202 mL/min (>60) 09/25/23 12:04 BUN/Creatinine Ratio 41.8 RATIO (10-20) H 09/25/23 12:04 Glucose 112 mg/dL (74-106) H 09/25/23 12:04 Goal Trough Goal Trough: 15-20 mcg/mL Pharmacy Plan for Drug Dosing Pharmacy Plan for Drug Dosing: NEW START IV VANCOMYCIN Consulting Physician: Dr. Gan Indication: Pneumonia Goal Trough: 15-20 SrCr: 0.34 CrCl: 31 ml/min Comments: Patient had initial dose of vancomycin 1000mg IV x1 in ED 09/25/23 @1632 Vancomycin Dose: Will start patient on vancomycin 500mg IV Q24hr to start 09/26/23 @1600 Pending Level: 09/27/23 @1530, prior to 3rd total dose per protocol Pharmacy Service will continue to monitor and adjust dosing as required.
[2023-09-25 18:13] LABS: M R Staph aureus DNA By PCR Negative (Negative); Probe Check PASS; Specimen Processing Control PASS
[2023-09-25] MEDS: Ipratropium/Albuterol Sulfate 3 ML AMPUL.NEB INHALATION (20:06)
[2023-09-25] MEDS: Gabapentin 300 MG Capsule PO (21:32)
[2023-09-25] MEDS: Citalopram 20 MG Tablet PO (21:33)
[2023-09-25] MEDS: guaiFENesin 1,200 MG Tablet 1200 MG PO (21:33)
[2023-09-25] MEDS: Heparin Injection (Vial) 5,000 UNIT/ML VIAL 5000 UNIT SC (21:33)
[2023-09-25] MEDS: 0.9% Saline Lock 10 ML Syringe IV (21:42)
[2023-09-26] VITALS (15 sets, daily range): BP systolic 95–115; BP diastolic 53–77; PULSE 99–117; RESP 17–20; TEMP 36.3–36.8; O2SAT 92–100
[2023-09-26] MEDS: Ipratropium/Albuterol Sulfate 3 ML AMPUL.NEB INHALATION ×5 (02:47→20:27)
[2023-09-26] MEDS: 0.9% Saline Lock 10 ML Syringe IV ×2 (05:08→15:52)
[2023-09-26 05:56] LABS: Absolute Lymphocyte Count 0.29 X10^3/uL (0.83-4.51); Absolute Neutrophil Count 14.1 X10^3/uL (2.0-7.7); Basophil# 0.03 X10^3/uL; Basophil% 0.2 % (0-1); Hematocrit 26.7 % (37-47); Hemoglobin 7.8 g/dL (12.0-15.0); Lymphocyte # 0.29 X10^3/ul (0.83-4.51); Lymphocyte % 1.9 % (19-41); Mean Corp Hgb Conc 29.2 g/dL (32-36); Mean Corpuscular Hgb 29.8 pg (27.0-32.0); Mean Corpuscular Volume 101.9 fL (81-99); Mean Platelet Vol. 9.4 fl (6.2-12.0); Monocyte# 0.66 X10^3/uL; Monocyte% 4.4 % (0-10); NRBC Flagged by Analyzer 0 % (0-5); Neutrophil # 14.08 X10^3/uL (2.7-7.7); Neutrophil % 92.8 % (47-70); POSITIVE DIFFERENTIAL YES; POSITIVE MORPHOLOGY YES; Platelet Count 716 K/mm3 (150-450); RBC Distribution Width CV 19.5 % (11.6-14.6); RBC Distribution Width SD 72.2 fl (35.1-43.9); Red Blood Count 2.62 M/mm3 (4.2-5.4); White Blood Count 15.2 K/mm3 (4.4-11.0)
[2023-09-26] MEDS: Meropenem 1 GM in 0.9% Normal Saline (100mL MB+) 100 ML IV ×2 (06:00→22:34)
[2023-09-26 06:20] LABS: Anisocytosis RARE; Differential Comment SCANNED; Differential Indicated SCAN CRITERIA MET
[2023-09-26 06:24] LABS: ALB/GLOB Ratio 0.7 RATIO (0.9-2.4); AST(SGOT) 11 U/L (15-37); Alanine Aminotransfer ALT/SGPT 18 U/L (13-56); Albumin, Serum 2.3 g/dL (3.2-5.0); Alkaline Phosphatase 66 U/L (45-117); Anion Gap 2 (5-15); BUN 19 mg/dL (7-18); BUN/Creat Ratio 41.9 RATIO (10-20); Calcium,Total 8.2 mg/dL (8.5-10.1); Chloride 101 mmol/L (98-107); Creatinine, Serum 0.45 mg/dL (0.55-1.02); EST Glomerular Filtration Rate 142 mL/min (>60); Est Glom Filt Rate - Afr Amer 172 mL/min (>60); Estimated Creatinine Clearance 28.68 ml/min; Globulin 3.5 g/dL (2.2-4.2); Glucose 213 mg/dL (74-106); Protein, Total 5.8 g/dL (6.4-8.2); Sodium Level 140 mmol/L (136-145)
--- NOTE | 2023-09-26 08:04 | NURSING ---
Contacted Pharmacy at approx. 0400 this morning regarding pt. being unable to receive 2200 dose of merem on 09/25/23. Spoke with Felix, pharmacist, explaining the situation and asking him what should be done due to the unreceived dose. Felix stated that i could go ahead and give the dose as soon as possible and to inform the dayshift nurse taking over pt.'s care that this would be in replacement of the 1000 dose for 09/26/23. 1000 dose started @ approx. 0600 on 09/26/23. Dayshift nurse for pt. informed of this information at shift change.
[2023-09-26] MEDS: Aspirin E.C. 81 MG Tablet PO (08:47)
[2023-09-26] MEDS: Heparin Injection (Vial) 5,000 UNIT/ML VIAL 5000 UNIT SC ×2 (09:55→22:36)
[2023-09-26] MEDS: guaiFENesin 1,200 MG Tablet 1200 MG PO ×2 (09:56→22:36)
[2023-09-26] MEDS: Pramipexole Di-HCl 0.25 MG Tablet PO (09:56)
[2023-09-26] MEDS: Pantoprazole Sodium 20 MG Tablet PO (09:56)
[2023-09-26] MEDS: Furosemide 20 MG Tablet PO (09:56)
[2023-09-26] MEDS: Potassium Chloride Oral Tablet 10 MEQ PO (09:56)
[2023-09-26] MEDS: Gabapentin 300 MG Capsule PO ×2 (10:02→22:34)
--- NOTE | 2023-09-26 10:18 | PN.HOSP_ITS ---
Reason for Visit Reason for Visit: Diagnoses Anemia, unspecified (09/25/23) Pneumonia, unspecified organism (09/25/23) Chronic respiratory failure with hypoxia (09/25/23) Chronic respiratory failure with hypercapnia (09/25/23) Nosocomial condition (09/25/23) Personal history of other venous thrombosis and embolism (09/25/23) Subjective Subjective Mrs. Kingston is a 78-year-old female with severe COPD on 3 and half liters of oxygen at baseline who presented to the emergency department at [facility] on 09/25/2023 from [facility] for increased shortness of breath. She had a recent hospitalization from which she was d ischarged on 09/18/2023 and was found to have strep pneumo pneumonia and was placed on Omnicef at discharge. Patient reported she had been doing very well however the day prior to presentation she began getting more short of breath. She indicated she was predominantly only having coughing when she was getting breathing treatments but was short of breath before and after. She has completed her steroids and antibiotics after her last hospitalization with a stop date being 09/18/2023. In the emergency department she was found a blood pressure of 90/55 with a respiratory rate of 24 and oxygen saturations of 92% on 4 L nasal cannula. She was mildly tachycardic with heart rates between 110 and 117. There was concern for healthcare associated pneumonia. She indicated to the admitting hospitalist that she had been feeling better until the day prior to presentation when she is slowly became more short of breath. She also reported that she had increasing amounts of productive cough with thick yellow sputum. She denied any fever or chills or chest pain. She was placed on broad-spectrum antibiotics with vancomycin and meropenem given her multiple antibiotic allergies and ordered aggressive pulmonary toilet with DuoNebs, incentive spirometry, and Acapella. Patient states she was feeling fine when discharge and did well for several days and her symptoms started yesterday. She said she had her oxygen saturations checked while she was short of breath and they were in the 50s. I discussed with her again with regards to hospice. She has been discharged with hospice several times and has revoked it each time. She has had 5 admissions in the last calendar year all related to her COPD and respiratory issues. She was complaining of some anxiety. We discussed the use of oral Roxanol and she states this has been effective for her previously. Currently she is enrolled in palliative care. Objective Data Objective Data Vital Signs: Vital Signs Temp Pulse Resp BP Pulse Ox O2 Del Method O2 Flow Rate 97.4 F L 117 H 18 101/60 95 Nasal Cannula 4 09/26/23 08:40 09/26/23 08:40 09/26/23 08:40 09/26/23 08:40 09/26/23 10:00 09/26/23 10:00 09/26/23 10:01 Oxygen Flow Rate (L/min) 4 Oxygen Delivery Method Nasal Cannula Weight: 38.555 kg Body Mass Index (BMI) 15.0 Intake & Output: Intake and Output for Last 24 Hours 09/24/23 09/25/23 09/26/23 23:59 23:59 23:59 Intake Total 2641.75 / 2861.75 780 / 780 Output Total 100 / 100 Balance 2641.75 / 2761.75 680 / 680 Lab / Micro Data 09/26/23 05:41 09/26/23 05:41 Labs: Laboratory Results - last 24 hr 09/25/23 12:04: WBC 25.1 H, RBC 3.11 L, Hgb 9.5 L, Hct 31.8 L, MCV 102.3 H, MCH 30.5, MCHC 29.9 L, RDW Std Deviation 74.4 H, RDW Coeff of Jacinto 19.8 H, Plt Count 825 H*, MPV 9.5, Immature Gran % (Auto) 0.800, Neut % (Auto) 93.4 H, Lymph % (Auto) 1.9 L, [place] % (Auto) 3.7, Eos % (Auto) 0.0, Baso % (Auto) 0.2, Absolute Neuts (auto) 23.4 H, Absolute Lymphs (auto) 0.47 L, Nucleated RBC % 0, Differential Comment SCANNED, Diff Path Review May , Platelet Estimate MKD INC, Hypochromasia 1+, Anisocytosis 2+, Microcytosis 1+, Macrocytosis 1+, Sodium 141, Potassium 4.3, Chloride 100, Carbon Dioxide 38.0 H, Anion Gap 3 L, BUN 14, Creatinine 0.34 L, Estim Creat Clear Calc 30.79, Est GFR (MDRD) Af Amer 244, Est GFR (MDRD) Non-Af 202, BUN/Creatinine Ratio 41.8 H, Glucose 112 H, Lactic Acid 1.6, Calcium 8.5, Troponin I High Sens 10, B-Natriuretic Peptide 14.4 09/25/23 16:40: MRSA (PCR) Negative 09/26/23 05:41: WBC 15.2 H, RBC 2.62 L, Hgb 7.8 L, Hct 26.7 L, MCV 101.9 H, MCH 29.8, MCHC 29.2 L, RDW Std Deviation 72.2 H, RDW Coeff of Jacinto 19.5 H, Plt Count 716 H, MPV 9.4, Immature Gran % (Auto) 0.700, Neut % (Auto) 92.8 H, Lymph % (Auto) 1.9 L, [place] % (Auto) 4.4, Eos % (Auto) 0.0, Baso % (Auto) 0.2, Absolute Neuts (auto) 14.1 H, Absolute Lymphs (auto) 0.29 L, Nucleated RBC % 0, Differential Comment SCANNED, Anisocytosis RARE, Sodium 140, Potassium 4.0, Chloride 101, Carbon Dioxide 37.0 H, Anion Gap 2 L, BUN 19 H, Creatinine 0.45 L, Estim Creat Clear Calc 28.68, Est GFR (MDRD) Af Amer 172, Est GFR (MDRD) Non-Af 142, BUN/Creatinine Ratio 41.9 H, Glucose 213 H, Calcium 8.2 L, Total Bilirubin 0.30, AST 11 L, ALT 18, Alkaline Phosphatase 66, Total Protein 5.8 L, Albumin 2.3 L, Globulin 3.5, Albumin/Globulin Ratio 0.7 L Micro: Microbiology 09/25/23 16:30 Mucosa - Nasopharyngeal Coronavirus COVID-19 PCR - Final 09/25/23 16:30 Mucosa - Nasopharyngeal Respiratory Panel (PCR) - Final 09/25/23 Unknown Urine, Random Legionella Antigen - Final 09/25/23 Unknown Urine, Random Streptococcus pneumoniae Antigen (M - Final Radiography Diagnostic Testing: Radiology Impression Chest X-Ray 09/25/23 11:41 IMPRESSION: Prominent interstitial markings may be secondary to edema and/or an infectious process. Bilateral ill-defined opacities may reflect atelectasis and/or pneumonia. Electronically Signed: Herlinda Levy MD at 12:42 EST , Physical Exam Const alert, oriented x3 and no apparent distress; Negative for average body habitus, healthy appearing or well nourished Constitutional Narrative: Cachectic, older, white female, sitting up in bed, appears much older than stated age, no signs of distress currently however she does appear mildly anxious, nursing at bedside, significant temporal wasting HEENT head/scalp atraumatic and moist oral mucous membranes HEENT Narrative: Dentition is poor, Mallampati is 1, no thrush Head and Scalp: normocephalic Resp Resp Narrative: No signs of distress, effort is normal, no signs of accessory muscle use or retractions, patient does have tachypnea, breath sounds are markedly diminished but no adventitious sounds noted Cardio regular rate, regular rhythm, S1 normal heart sound, S2 normal heart sound, no murmurs, no rub, no gallops and no clicks GI normal to inspection, nondistended, normoactive bowel sounds, soft to palpation and non-tender GI Narrative: Scaphoid abdomen with prominent pelvic bones Extremity no clubbing, cyanosis or edema Extremity Narrative: Pedal pulses are 2+, significant reduction in lean muscle mass Neuro oriented x3, moves all extremities and no focal motor deficits Speech: speech normal Psych affect normal Psych Narrative: Mild anxious Assessment & Plan Assessment/Plan (1) HAP (hospital-acquired pneumonia): (2) Thrombophilia: (3) Pneumonia: (4) Leukocytosis: (5) COPD with acute exacerbation: (6) Chronic hypoxic respiratory failure: PLAN: Plan Shortness of breath secondary to healthcare associated pneumonia/acute exacerbation of COPD -Baseline O2 requirement is 3.5 L -Patient just completed a course of antibiotics and steroid taper for strep pneumo pneumonia and acute exacerbation of COPD with antibiotics being completed on 09/19/2023 -Currently requiring 4 to 5 L to maintain saturations -Legionella and strep pneumo antigens are negative -Rapid COVID/Flu test are negative -Check respiratory viral panel--> ordered and pending -Blood and urine cultures are pending -Patient has not yet been able to produce a sputum culture -Every 4 hours DuoNebs -As needed albuterol -Solu-Medrol 40 every 8 -IS and Acapella -sputum cx if able to produce -Continue vancomycin and meropenem -Mucinex 1200 twice daily Leukocytosis/thrombocytosis -Suspect reactive and related to acute infection -Continue antibiotics -Trending down 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 intake overall at her last visit in late April Chronic hypoxic and hypercapnic respiratory failure -At baseline is on 3 L supplemental nasal cannula History of pulmonary embolism -Had been on Eliquis but had severe anemia so was discontinued -Hemoglobin is stable and no current signs of PE Osteoporosis -Hold alendronate and restart at discharge GERD -Cont home famotidine COPD -Stage unknown is that we have no PFTs on records -Baseline O2 requirement is 3.5 L -Hold home inhalers Neuropathy -Continue home gabapentin Allergies -Continue home nasal spray -Continue home loratadine Depression/anxiety -Continue home medications Restless leg syndrome -Continue ropinirole Tobacco Abuse -recommend cessation -NRT available DVT prophylaxis -Subcu heparin CODE STATUS -DNR CCA no intubation -Hospice consultation--> discussed with social work Charges/Coding Visit Charges Inpatient E&M: 03021 Subs Hosp L2
--- NOTE | 2023-09-26 11:01 | CASEMGMT ---
Patient is from [facility]. SW spoke with patient. Introduced self and role at [facility]. When asked if the plan is to return to [facility] at discharge patient stated, I guess. SW will continue to follow and keep [facility] updated. Plan: d/c back to [facility]. Patient will need a pre-cert to return. Sharifa Wilburn MSW LUANN
--- NOTE | 2023-09-26 11:22 | NURSING ---
This nurse into room. Pt sitting up in bed stating she has not peed since purewick was changed and she is having discomfort. Did observe urine in canister and in tubing. Checked purewick and ensured that it is in correct working position. Pt concerned she did not get her lasix. Informed pt that she did get her oral lasix. Bladder scanned pt for 37ml. Pt very anxious. Encouraged pt that getting up to use bedside commode is better for improving her condition and to not stay in bed all day, even just get up to the chair for a little while. Pt very resistive and hesitant stating me moving is what got me in here! Reassurance provided and education re-enforced. Dr Anne notified of pt's anxiety level.
--- NOTE | 2023-09-26 12:50 | CASEMGMT ---
Per physician patient is agreeable to Hospice. Patient has been on Hospice with 2-3 different agencies in the past. Patient was taken off of Hospice by one of the agencies due to patient not complying with not smoking with O2 on. Patient has revoked Hospice with the other agencies. SW met with patient. SW sat down and mentioned the physician said patient was open to Hospice. Patient said she is not sure what to do. SW asked patient what it means to her to be on Hospice. Patient said she knows it means, You don't come back to the hospital, and that kind of bothers me. SW talked with patient about this a little more. Patient said she is on Palliative Care right now. Patient asked the difference between Hospice and Palliative. SW explained Hospice is for patients that are in the end stages of life due to a chronic or terminal condition. SW explained the goal of care is to keep patient's comfortable and not pursue aggressive treatment which includes not coming to the hospital. Patient said she wants to talk to her family first before she decides. Patient did not have any of her belongings from the intermediate so she did not have phone numbers for family. SW provided patient with phone numbers for her niece and son. Sharifa Wilburn MSW LUANN
[2023-09-26] MEDS: morphine (oral solution) 10MG/0.5ML Syringe 5 MG PO ×2 (13:09→18:45)
--- NOTE | 2023-09-26 14:20 | CASEMGMT ---
Patient is active with [facility]. Sharifa Wilburn TELEMETRY TECHNICIAN TRUCK MANAGER
[2023-09-26] MEDS: Ensure Plus High Protein 120 ML LIQUID PO ×3 (15:27→22:34)
[2023-09-26] MEDS: Vancomycin IV 500 MG/100 ML BAG 100 MG IV (16:53)
[2023-09-26] MEDS: Citalopram 20 MG Tablet PO (22:36)
[2023-09-27] VITALS (13 sets, daily range): BP systolic 111–123; BP diastolic 66–75; PULSE 60–111; RESP 16–20; TEMP 36.3–36.8; O2SAT 88–100
[2023-09-27] MEDS: Ipratropium/Albuterol Sulfate 3 ML AMPUL.NEB INHALATION ×7 (00:17→23:45)
[2023-09-27 05:28] LABS: Absolute Lymphocyte Count 0.19 X10^3/uL (0.83-4.51); Absolute Neutrophil Count 13.9 X10^3/uL (2.0-7.7); Basophil# 0.01 X10^3/uL; Basophil% 0.1 % (0-1); Hematocrit 30.8 % (37-47); Hemoglobin 8.8 g/dL (12.0-15.0); Lymphocyte # 0.19 X10^3/ul (0.83-4.51); Lymphocyte % 1.3 % (19-41); Mean Corp Hgb Conc 28.6 g/dL (32-36); Mean Corpuscular Hgb 29.5 pg (27.0-32.0); Mean Corpuscular Volume 103.4 fL (81-99); Mean Platelet Vol. 9.5 fl (6.2-12.0); Monocyte# 0.27 X10^3/uL; Monocyte% 1.9 % (0-10); NRBC Flagged by Analyzer 0 % (0-5); Neutrophil # 13.94 X10^3/uL (2.7-7.7); Neutrophil % 96.1 % (47-70); POSITIVE DIFFERENTIAL YES; POSITIVE MORPHOLOGY YES; Platelet Count 693 K/mm3 (150-450); RBC Distribution Width CV 18.9 % (11.6-14.6); RBC Distribution Width SD 71.8 fl (35.1-43.9); Red Blood Count 2.98 M/mm3 (4.2-5.4); White Blood Count 14.5 K/mm3 (4.4-11.0)
[2023-09-27 05:42] LABS: Anion Gap 3 (5-15); BUN 17 mg/dL (7-18); BUN/Creat Ratio 56.7 RATIO (10-20); Calcium,Total 8.4 mg/dL (8.5-10.1); Chloride 98 mmol/L (98-107); EST Glomerular Filtration Rate 229 mL/min (>60); Est Glom Filt Rate - Afr Amer 277 mL/min (>60); Estimated Creatinine Clearance 28.68 ml/min; Glucose 163 mg/dL (74-106); Sodium Level 141 mmol/L (136-145)
[2023-09-27] MEDS: 0.9% Saline Lock 10 ML Syringe IV ×2 (06:08→15:47)
[2023-09-27 06:09] LABS: Differential Indicated SCAN CRITERIA MET
[2023-09-27 07:12] LABS: Anisocytosis 2+; Differential Comment SCANNED
[2023-09-27 07:13] LABS: Polychromasia 2+
[2023-09-27] MEDS: Ensure Plus High Protein 120 ML LIQUID PO ×2 (09:14→23:00)
[2023-09-27] MEDS: Pantoprazole Sodium 20 MG Tablet PO (09:15)
[2023-09-27] MEDS: Aspirin E.C. 81 MG Tablet PO (09:15)
[2023-09-27] MEDS: Furosemide 20 MG Tablet PO (09:15)
[2023-09-27] MEDS: Potassium Chloride Oral Tablet 10 MEQ PO (09:15)
[2023-09-27] MEDS: Heparin Injection (Vial) 5,000 UNIT/ML VIAL 5000 UNIT SC ×2 (09:15→23:00)
[2023-09-27] MEDS: Gabapentin 300 MG Capsule PO ×2 (09:15→23:16)
[2023-09-27] MEDS: guaiFENesin 1,200 MG Tablet 1200 MG PO ×2 (09:15→23:00)
[2023-09-27] MEDS: Pramipexole Di-HCl 0.25 MG Tablet PO (09:15)
[2023-09-27] MEDS: Meropenem 1 GM in 0.9% Normal Saline (100mL MB+) 100 ML IV ×2 (09:16→23:00)
--- NOTE | 2023-09-27 09:52 | CASEMGMT ---
SW spoke with patient. SW asked patient if she talked with her family about Hospice. Patient said she talked to her son and he was going to talk with her granddaughter to see what she thinks and what she would be comfortable with at home. Sharifa KONG
[2023-09-27 10:45] LABS: Pathologist Review Reviewed
--- NOTE | 2023-09-27 12:31 | CASEMGMT ---
ZAIDA called patient's granddaughter Debbie. Debbie said she has not spoken to patient, but she has talked with Juan C, patient's son. Debbie said patient is concerned about how Debbie's kids would do with patient being at home on hospice. Debbie said she has not spoken to her kids yet, but she really does not know how they would do until patient was home. At this time ZAIDA is unable to get a straight answer from patient regarding whether or not she truly would like to go hospice. ZAIDA is checking with [facility] that if patient would return on Hospice would she need a pre-cert to return intermediate level of care? Await answer. Patient refused PT/OT yesterday so if patient would go back to [facility] skilled pre-cert could not be started yet due to no therapy notes. Sharifa Wilburn CANDLE MAKER LUANN
--- NOTE | 2023-09-27 15:34 | PCM.PN.HOSP ---
Reason for Visit Reason for Visit: Shortness of breath Subjective Subjective Patient states her breathing feels a little bit better. It was worse when they weaned her oxygen to 3 L and better now that she is at 4. Her baseline is 3.5. She states the Roxanol helped significantly. It is is like she is still receptive to hospice and realizes that her lung disease is end-stage however she still seems somewhat reluctant. Ongoing conversations to be had both with her family and her upcoming as I do feel her prognosis is extremely 4. Objective Data Objective Data Vital Signs: Vital Signs Temp Pulse Resp BP Pulse Ox O2 Del Method O2 Flow Rate 97.4 F L 89 18 123/75 H 94 Nasal Cannula 4 09/27/23 15:02 09/27/23 15:07 09/27/23 15:07 09/27/23 15:02 09/27/23 15:02 09/27/23 15:02 09/27/23 15:02 Oxygen Flow Rate (L/min) 4 Oxygen Delivery Method Nasal Cannula Weight: 38.555 kg Body Mass Index (BMI) 15.0 Intake & Output: Intake and Output for Last 24 Hours 09/25/23 09/26/23 09/27/23 23:59 23:59 23:59 Intake Total 2641.75 / 2861.75 1530 / 1630 1000 / 1000 Output Total 400 / 650 250 / 250 Balance 2641.75 / 2761.75 1130 / 980 750 / 750 Medical Nutrition Assessment Dietitian: Malnutrition Criteria Met Start: 09/26/23 12:14 Freq: Status: Active Protocol: Document 09/26/23 12:15 (Rec: 09/26/23 12:15 [id number]) Nutrition Malnutrition Evidence of Malnutrition Exists Yes Malnutrition (severe): Chronic Evidenced By Suboptimal Energy Intake ( Severe),Physical Changes ( Severe) Clinical Problem Chronic Disease or Condition Related Malnutrition Etiology severe, chronic malnutrition related to inadequate energy intake w/ increased energy needs d/t chronic resp. failure Signs/Symptoms as evidenced by estimated PO intake meeting <75% of estimated energy needs > 3 months, severe muscle wasting/ fat loss evident per physical exam in orbital, temporal, and clavicle areas, BMI 15.1 Status Active Problem Recommendation Dietitian Recommendations/Changes continue regular diet as tolerated; 120ml ensure plus high protein 4x/day w/ medpass given evidence of malnutrition Lab / Micro Data 09/27/23 05:10 09/27/23 05:10 Labs: Laboratory Results - last 24 hr 09/25/23 12:04: Diff Path Review Reviewed 09/27/23 05:10: WBC 14.5 H, RBC 2.98 L, Hgb 8.8 L, Hct 30.8 L, MCV 103.4 H, MCH 29.5, MCHC 28.6 L, RDW Std Deviation 71.8 H, RDW Coeff of Jacinto 18.9 H, Plt Count 693 H, MPV 9.5, Immature Gran % (Auto) 0.600, Neut % (Auto) 96.1 H, Lymph % (Auto) 1.3 L, [place] % (Auto) 1.9, Eos % (Auto) 0.0, Baso % (Auto) 0.1, Absolute Neuts (auto) 13.9 H, Absolute Lymphs (auto) 0.19 L, Nucleated RBC % 0, Differential Comment SCANNED, Polychromasia 2+, Anisocytosis 2+, Sodium 141, Potassium 4.0, Chloride 98, Carbon Dioxide 40.0 H, Anion Gap 3 L, BUN 17, Creatinine 0.30 L, Estim Creat Clear Calc 28.68, Est GFR (MDRD) Af Amer 277, Est GFR (MDRD) Non-Af 229, BUN/Creatinine Ratio 56.7 H, Glucose 163 H, Calcium 8.4 L Micro: Microbiology 09/25/23 14:16 Blood Culture (Wb) - Left Hand Blood Culture - Preliminary No growth in 48 hours. 09/25/23 14:11 Blood Culture (Wb) - Anticubital Left Blood Culture - Preliminary No growth in 48 hours. 09/25/23 16:30 Mucosa - Nasopharyngeal Coronavirus COVID-19 PCR - Final 09/25/23 16:30 Mucosa - Nasopharyngeal Respiratory Panel (PCR) - Final 09/25/23 Unknown Urine, Random Legionella Antigen - Final 09/25/23 Unknown Urine, Random Streptococcus pneumoniae Antigen (M - Final Physical Exam Const alert, oriented x3 and no apparent distress; Negative for average body habitus, healthy appearing or well nourished Constitutional Narrative: Cachectic, older, white female, sitting up in bed, appears much older than stated age, no signs of distress, significant temporal wasting HEENT head/scalp atraumatic and moist oral mucous membranes HEENT Narrative: She was in place, Mallampati 1, no thrush Head and Scalp: normocephalic Resp Resp Narrative: No signs of distress, effort is normal, no signs of accessory muscle use or retractions, no current significant tachypnea, breath sounds are markedly diminished but no adventitious sounds noted Cardio regular rate, regular rhythm, S1 normal heart sound, S2 normal heart sound, no murmurs, no rub, no gallops and no clicks GI normal to inspection, nondistended, normoactive bowel sounds, soft to palpation and non-tender GI Narrative: Scaphoid abdomen with prominent pelvic bones Extremity no clubbing, cyanosis or edema Extremity Narrative: Pedal pulses are 2+, significant reduction in lean muscle mass Neuro oriented x3, moves all extremities and no focal motor deficits Speech: speech normal Psych affect normal Psych Narrative: Much more calm today appears comfortable, eye contact is good Assessment & Plan Assessment/Plan (1) HAP (hospital-acquired pneumonia): (2) Thrombophilia: (3) Pneumonia: (4) Leukocytosis: (5) COPD with acute exacerbation: (6) Chronic hypoxic respiratory failure: PLAN: Plan Shortness of breath secondary to healthcare associated pneumonia/acute exacerbation of COPD -Baseline O2 requirement is 3.5 L -Currently on 4 L -Patient just completed a course of antibiotics and steroid taper for strep pneumo pneumonia and acute exacerbation of COPD with antibiotics being completed on 09/19/2023 -Legionella and strep pneumo antigens are negative -Rapid COVID/Flu test are negative -Respiratory viral panel is unremarkable -Blood and urine cultures are unremarkable -Patient has not yet been able to produce a sputum culture -Every 4 hours DuoNebs -As needed albuterol -Solu-Medrol 40 every 8 -IS and Acapella -sputum cx if able to produce -Discontinue vancomycin and continue meropenem -Will treat for total of 7 days day 2 of 7 -Mucinex 1200 twice daily -Continue as needed Roxanol Leukocytosis/thrombocytosis -Suspect reactive and related to acute infection -Continue antibiotics -Both white count and platelets are improving 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 -Dietitian following -Continue supplements Chronic hypoxic and hypercapnic respiratory failure -At baseline is on 3.5 L supplemental nasal cannula History of pulmonary embolism -Had been on Eliquis but had severe anemia so was discontinued -Hemoglobin is stable and no current signs of PE Osteoporosis -Hold alendronate and restart at discharge GERD -Cont home famotidine COPD -Stage unknown is that we have no PFTs on records -Baseline O2 requirement is 3.5 L -Hold home inhalers Neuropathy -Continue home gabapentin Allergies -Continue home nasal spray -Continue home loratadine Depression/anxiety -Continue home medications Restless leg syndrome -Continue ropinirole Tobacco Abuse -recommend cessation -NRT available DVT prophylaxis -Subcu heparin CODE STATUS -DNR CCA no intubation -Patient is still considering possible hospice discharge Charges/Coding Visit Charges Inpatient E&M: 11788 Subs Hosp L2
--- NOTE | 2023-09-27 16:18 | CASEMGMT ---
ZAIDA met with patient and her son Juan C. ZAIDA explained SW is waiting on their decision on whether patient is going to go on Hospice and if she goes on Hospice will she go home on hospice or back to [facility] on hospice. Patient said she is planning on talking with her granddaughter fox. ZAIDA told them ZAIDA will follow up with them tomorrow. ZAIDA did call Nata with [facility]. ZAIDA explained situation. Nata said that should patient decide on Hospice ZAIDA should call the on-call team at [phone]. The fax number is [phone]. They can take care of patient at [facility] or at home. Sharifa Wilburn CLAIM SERVICE REPRESENTATIVE LUANN
[2023-09-27 16:46] LABS: Vancomycin, Trough Level 3.5 ug/mL (5.0-15.0)
[2023-09-27] MEDS: morphine (oral solution) 10MG/0.5ML Syringe 5 MG PO (20:16)
[2023-09-27] MEDS: Citalopram 20 MG Tablet PO (23:00)
[2023-09-28] VITALS (13 sets, daily range): BP systolic 104–130; BP diastolic 63–67; PULSE 92–120; RESP 15–24; TEMP 36.6–36.9; O2SAT 92–98
[2023-09-28] MEDS: Ipratropium/Albuterol Sulfate 3 ML AMPUL.NEB INHALATION ×6 (03:38→23:36)
[2023-09-28] MEDS: 0.9% Saline Lock 10 ML Syringe IV ×3 (05:54→13:10)
[2023-09-28] MEDS: Aspirin E.C. 81 MG Tablet PO (08:18)
[2023-09-28 08:30] LABS: Absolute Lymphocyte Count 0.24 X10^3/uL (0.83-4.51); Basophil# 0.02 X10^3/uL; Basophil% 0.2 % (0-1); Lymphocyte # 0.24 X10^3/ul (0.83-4.51); Lymphocyte % 2.2 % (19-41); Mean Corpuscular Hgb 29.3 pg (27.0-32.0); Mean Platelet Vol. 9.7 fl (6.2-12.0); Monocyte# 0.51 X10^3/uL; Monocyte% 4.7 % (0-10); NRBC Flagged by Analyzer 0 % (0-5); Neutrophil # 9.95 X10^3/uL (2.7-7.7); Neutrophil % 92.4 % (47-70); POSITIVE DIFFERENTIAL YES; POSITIVE MORPHOLOGY YES; Platelet Count 608 K/mm3 (150-450); RBC Distribution Width CV 18.2 % (11.6-14.6); RBC Distribution Width SD 66.9 fl (35.1-43.9); Red Blood Count 3.07 M/mm3 (4.2-5.4); White Blood Count 10.8 K/mm3 (4.4-11.0)
[2023-09-28 08:33] LABS: Differential Indicated SCAN CRITERIA MET
[2023-09-28 08:59] LABS: Anion Gap 1 (5-15); BUN 19 mg/dL (7-18); BUN/Creat Ratio 93.6 RATIO (10-20); Calcium,Total 8.8 mg/dL (8.5-10.1); Chloride 98 mmol/L (98-107); EST Glomerular Filtration Rate 360 mL/min (>60); Est Glom Filt Rate - Afr Amer 435 mL/min (>60); Estimated Creatinine Clearance 28.68 ml/min; Glucose 96 mg/dL (74-106); Potassium 4.5 mmol/L (3.5-5.1); Sodium Level 141 mmol/L (136-145)
[2023-09-28] MEDS: Ondansetron 4 MG/2 ML Vial IV (09:46)
[2023-09-28 09:47] LABS: Anisocytosis 1+; Hypochromasia RARE; Macrocytosis 1+; Platelet Estimate MOD INC (ADEQ); Poikilocytosis 1+
[2023-09-28] MEDS: Meropenem 1 GM in 0.9% Normal Saline (100mL MB+) 100 ML IV ×2 (09:47→23:09)
[2023-09-28] MEDS: Heparin Injection (Vial) 5,000 UNIT/ML VIAL 5000 UNIT SC ×2 (11:09→23:13)
[2023-09-28] MEDS: Potassium Chloride Oral Tablet 10 MEQ PO (11:10)
[2023-09-28] MEDS: Pantoprazole Sodium 20 MG Tablet PO (11:10)
[2023-09-28] MEDS: guaiFENesin 1,200 MG Tablet 1200 MG PO ×2 (11:10→23:13)
[2023-09-28] MEDS: Gabapentin 300 MG Capsule PO ×2 (11:10→23:26)
[2023-09-28] MEDS: Ensure Plus High Protein 120 ML LIQUID PO ×3 (11:11→23:13)
[2023-09-28] MEDS: morphine (oral solution) 10MG/0.5ML Syringe 5 MG PO (11:11)
[2023-09-28] MEDS: Furosemide 20 MG Tablet PO (11:11)
[2023-09-28] MEDS: Pramipexole Di-HCl 0.25 MG Tablet PO (11:12)
--- NOTE | 2023-09-28 11:18 | NURSING ---
Pt noted that she felt like her SPO2. checked and read 67% @2L. increased to 3L. O2 @ 90% graciela continue to monitor
--- NOTE | 2023-09-28 12:48 | CASEMGMT ---
Addendum entered by Norma Johnson 09/28/23 15:51: Social Work SW spoke w/son Juan C, he is agreeable for pt to go to [facility] tomorrow on hospice. SW explained to him that pt is agreeable to hospice. Son states understanding. Lamar then called from [facility]. She states pt has been on and off of hospice 10 times so a nurse practitioner will need to see her at [facility]. They are to call PCU to let them know if pt can for sure be seen at [facility] tomorrow. If pt cannot be seen for certain tomorrow pt will not be able to be discharged until Saturday. Green sheet updated. GIGI Cason Addendum entered by Norma Johnson 09/28/23 14:17: Social Work SW spoke w/Lamar from [facility]. She states pt does not seem definite that she wants hospice, was talking about getting therapy still. She states spoke w/son Juan C and the plan was for pt to return to [facility] and do some therapy, then transition to hospice. SW explained would speak w/pt again. SW spoke w/pt, explained again the difference between going to facility skilled and getting therapy vs hospice and comfort care. SW explained that pt would not be able to be on hospice and get therapy. Pt states wants the comfort care, rather than getting therapy. SW explained that we will work to get her back to [facility] tomorrow on hospice, pt states understanding. SW let [facility] know, they can go out to have pt sign papers tomorrow. As per [facility], they are okay w/pt returning as long as she signs the papers on day of admission to [facility]. SW called son Juan C, message left. SW will continue follow. Plan will be for pt to go to [facility] on Saturday, and sign on w/hospice once she gets there. ZAIDA will add to green sheet for staff to call [facility] to let them know when pt will be discharged. GIGI Cason Original Note: Social Work SW spoke w/pt, and then physician, pt is agreeable for hospice at [facility] w/Brody. SW called [facility], spoke jt/Lamar. They don't come to the hospital to sign papers but she can call pt. SW faxed clinical information w/pt's hospital phone number to call, SW let pt know that Lamar from [facility] would be calling. SW sent a message to [facility] via [employer] letting them know that [facility] cannot come here to have pt sign papers, they would have her sign papers at the facility. SW inquired if this would be okay, as it is this SW's understanding that they needed hospice papers signed before pt could return. SW awaiting a return message back. GIGI Cason
--- NOTE | 2023-09-28 13:50 | EKG12_ITS ---
Test Reason : HIGH HR Blood Pressure : / mmHG Vent. Rate : 122 BPM Atrial Rate : 122 BPM P-R Int : 130 ms QRS Dur : 074 ms QT Int : 304 ms P-R-T Axes : 069 -03 057 degrees QTc Int : 433 ms Sinus tachycardia Otherwise normal ECG When compared with ECG of 25-SEP-2023 11:31, MANUAL COMPARISON REQUIRED, DATA IS UNCONFIRMED Confirmed by YANNICK RAMÍREZ, EMERALD ([id number]), general expeditor ELMIRA SOLIZ ([id number]) on 10/01/2023 10:35:44 AM Referred By: Confirmed By:EMERALD LANIER MD
--- NOTE | 2023-09-28 14:55 | PCM.PN.HOSP ---
Reason for Visit Reason for Visit: Shortness of breath Subjective Subjective Patient states she is not feeling that great today. Some intermittent nausea. Shortness of breath has been a problem as well but Roxanol continues to be helpful. Patient states that he thought about hospice and talk to her granddaughter about this. She is willing to go back with hospice and both she and her granddaughter agree it would be best for her to go back to [facility]. Discussed with supervisor case loading and they are in the process of getting this set up. Patient with some intermittent ectopy on telemetry. Objective Data Objective Data Vital Signs: Vital Signs Temp Pulse Resp BP Pulse Ox O2 Del Method O2 Flow Rate 98.0 F 114 H 15 110/67 92 Nasal Cannula 4 09/28/23 14:00 09/28/23 14:00 09/28/23 14:00 09/28/23 14:00 09/28/23 14:00 09/28/23 14:00 09/28/23 14:00 Oxygen Flow Rate (L/min) 4 Oxygen Delivery Method Nasal Cannula Weight: 38.555 kg Body Mass Index (BMI) 15.0 Intake & Output: Intake and Output for Last 24 Hours 09/26/23 09/27/23 09/28/23 23:59 23:59 23:59 Intake Total 1530 / 1630 1400 / 1600 1110 / 1110 Output Total 400 / 650 250 / 250 800 / 800 Balance 1130 / 980 1150 / 1350 310 / 310 Medical Nutrition Assessment Dietitian: Malnutrition Criteria Met Start: 09/26/23 12:14 Freq: Status: Active Protocol: Document 09/26/23 12:15 (Rec: 09/26/23 12:15 [id number]) Nutrition Malnutrition Evidence of Malnutrition Exists Yes Malnutrition (severe): Chronic Evidenced By Suboptimal Energy Intake ( Severe),Physical Changes ( Severe) Clinical Problem Chronic Disease or Condition Related Malnutrition Etiology severe, chronic malnutrition related to inadequate energy intake w/ increased energy needs d/t chronic resp. failure Signs/Symptoms as evidenced by estimated PO intake meeting <75% of estimated energy needs > 3 months, severe muscle wasting/ fat loss evident per physical exam in orbital, temporal, and clavicle areas, BMI 15.1 Status Active Problem Recommendation Dietitian Recommendations/Changes continue regular diet as tolerated; 120ml ensure plus high protein 4x/day w/ medpass given evidence of malnutrition Lab / Micro Data 09/28/23 08:10 09/28/23 08:10 Labs: Laboratory Results - last 24 hr 09/27/23 15:35: Vancomycin Trough 3.5 L 09/28/23 08:10: WBC 10.8, RBC 3.07 L, Hgb 9.0 L, Hct 31.0 L, MCV 101.0 H, MCH 29.3, MCHC 29.0 L, RDW Std Deviation 66.9 H, RDW Coeff of Jacinto 18.2 H, Plt Count 608 H, MPV 9.7, Immature Gran % (Auto) 0.500, Neut % (Auto) 92.4 H, Lymph % (Auto) 2.2 L, [place] % (Auto) 4.7, Eos % (Auto) 0.0, Baso % (Auto) 0.2, Absolute Neuts (auto) 10.0 H, Absolute Lymphs (auto) 0.24 L, Nucleated RBC % 0, Platelet Estimate MOD INC, Hypochromasia RARE, Poikilocytosis 1+, Anisocytosis 1+, Macrocytosis 1+, Sodium 141, Potassium 4.5, Chloride 98, Carbon Dioxide 42.0 H, Anion Gap 1 L, BUN 19 H, Creatinine 0.20 L, Estim Creat Clear Calc 28.68, Est GFR (MDRD) Af Amer 435, Est GFR (MDRD) Non-Af 360, BUN/Creatinine Ratio 93.6 H, Glucose 96, Calcium 8.8 Micro: Microbiology 09/25/23 14:16 Blood Culture (Wb) - Left Hand Blood Culture - Preliminary No growth in 48 hours. 09/25/23 14:11 Blood Culture (Wb) - Anticubital Left Blood Culture - Preliminary No growth in 48 hours. 09/25/23 16:30 Mucosa - Nasopharyngeal Coronavirus COVID-19 PCR - Final 09/25/23 16:30 Mucosa - Nasopharyngeal Respiratory Panel (PCR) - Final 09/25/23 Unknown Urine, Random Legionella Antigen - Final 09/25/23 Unknown Urine, Random Streptococcus pneumoniae Antigen (M - Final Physical Exam Const alert, oriented x3 and no apparent distress; Negative for average body habitus, healthy appearing or well nourished Constitutional Narrative: Cachectic, older, white female, sitting up in bed, appears much older than stated age, no signs of distress, significant temporal wasting HEENT head/scalp atraumatic and moist oral mucous membranes HEENT Narrative: Mallampati is 1, no thrush, dentures in place Head and Scalp: normocephalic Resp Resp Narrative: No signs of distress, effort is normal, no signs of accessory muscle use or retractions, no current significant tachypnea, breath sounds are markedly diminished but no adventitious sounds noted Cardio regular rhythm, S1 normal heart sound, S2 normal heart sound, no murmurs, no rub, no gallops and no clicks Cardio Narrative: Tachycardia GI normal to inspection, nondistended, normoactive bowel sounds, soft to palpation and non-tender GI Narrative: Scaphoid abdomen with prominent pelvic bones Extremity no clubbing, cyanosis or edema Extremity Narrative: Pedal pulses are 2+, significant reduction in lean muscle mass Neuro oriented x3, moves all extremities and no focal motor deficits Speech: speech normal Psych affect normal Psych Narrative: Much more calm today appears comfortable, eye contact is good Assessment & Plan Assessment/Plan (1) HAP (hospital-acquired pneumonia): (2) Thrombophilia: (3) Pneumonia: (4) Leukocytosis: (5) COPD with acute exacerbation: (6) Chronic hypoxic respiratory failure: PLAN: Plan Shortness of breath secondary to healthcare associated pneumonia/acute exacerbation of COPD -Baseline O2 requirement is 3.5 L -Currently on 4 L -Patient just completed a course of antibiotics and steroid taper for strep pneumo pneumonia and acute exacerbation of COPD with antibiotics being completed on 09/19/2023 -Legionella and strep pneumo antigens are negative -Rapid COVID/Flu test are negative -Respiratory viral panel is unremarkable -Blood and urine cultures are unremarkable -Patient has not yet been able to produce a sputum culture -Every 4 hours DuoNebs -As needed albuterol -Solu-Medrol 40 every 8 -IS and Acapella -sputum cx if able to produce -Discontinue vancomycin and continue meropenem -Will treat for total of 7 days day 2 of 7 -Mucinex 1200 twice daily -Continue as needed Roxanol Leukocytosis/thrombocytosis -Suspect reactive and related to acute infection -Continue antibiotics -Both white count and platelets are improving 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 -Dietitian following -Continue supplements Chronic hypoxic and hypercapnic respiratory failure -At baseline is on 3.5 L supplemental nasal cannula History of pulmonary embolism -Had been on Eliquis but had severe anemia so was discontinued -Hemoglobin is stable and no current signs of PE Osteoporosis -Hold alendronate and restart at discharge GERD -Cont home famotidine COPD -Stage unknown is that we have no PFTs on records -Baseline O2 requirement is 3.5 L -Hold home inhalers Neuropathy -Continue home gabapentin Allergies -Continue home nasal spray -Continue home loratadine Depression/anxiety -Continue home medications Restless leg syndrome -Continue ropinirole Tobacco Abuse -recommend cessation -NRT available DVT prophylaxis -Subcu heparin CODE STATUS -DNR CCA no intubation -Patient will be signing up for hospice with discharge plan back to [facility] tomorrow morning. Charges/Coding Visit Charges Inpatient E&M: 53597 Subs Hosp L2
[2023-09-28] MEDS: Metoprolol Tartrate 25 MG Tablet 12.5 MG PO ×2 (15:22→23:35)
--- NOTE | 2023-09-28 16:37 | CASEMGMT ---
Social Work [facility] called and said the nurse practitioner would be here before 10am to see pt here at the hospital. GIGI Cason
[2023-09-28] MEDS: Citalopram 20 MG Tablet PO (23:14)
[2023-09-29] VITALS (7 sets, daily range): BP systolic 100–107; BP diastolic 62–87; PULSE 82–106; RESP 16–22; TEMP 36.6–37; O2SAT 94–99
[2023-09-29] MEDS: Ipratropium/Albuterol Sulfate 3 ML AMPUL.NEB INHALATION ×3 (03:28→11:11)
[2023-09-29] MEDS: Aspirin E.C. 81 MG Tablet PO (08:41)
--- NOTE | 2023-09-29 08:44 | PCM.DC.SUM ---
Providers Date of Admission: 09/25/23 Date of Discharge: 09/29/23 Primary Care Physician: Dr. Cassandra Iqbal MD Reason For Visit: HAP Diagnosis Discharge Diagnosis (1) HAP (hospital-acquired pneumonia): Status: Acute Code(s): J18.9 - Pneumonia, unspecified organism; Y95 - Nosocomial condition (2) Thrombophilia: Status: Acute Code(s): D68.59 - Other primary thrombophilia (3) Pneumonia: Status: Acute Code(s): J18.9 - Pneumonia, unspecified organism (4) Leukocytosis: Status: Acute Code(s): D72.829 - Elevated white blood cell count, unspecified (5) COPD with acute exacerbation: Status: Chronic Code(s): J44.1 - Chronic obstructive pulmonary disease with (acute) exacerbation (6) Chronic hypoxic respiratory failure: Status: Chronic Code(s): J96.11 - Chronic respiratory failure with hypoxia Medications at Discharge Home Medications famotidine 40 mg tablet 40 mg PO DAILY GERD 10/24/18 citalopram 20 mg tablet 20 mg PO QHS MOOD 04/04/21 fluticasone furoate 200 mcg-vilanterol 25 mcg/dose inhalation powder (Breo Ellipta) 1 inh inhalation BID COPD 04/04/21 loratadine 10 mg tablet 10 mg PO DAILY ALLERGIES 04/04/21 gkuyazjtmhuz-gxcdgxvh-ebimes tablet 1 tab PO DAILY SUPPLEMENT 04/04/21 fluticasone propionate 50 mcg/actuation nasal spray,suspension 1 spray intranasal BID ALLERGIES 05/15/23 sennosides 8.6 mg-docusate sodium 50 mg tablet (2-in-1 Laxative) 2 tab-cap PO QHS STOOL SOFTENER 05/15/23 gabapentin 300 mg capsule 300 mg PO BID PAIN 08/19/23 omeprazole 20 mg capsule,delayed release 20 mg PO DAILY ACID RELUX 08/19/23 ropinirole 0.5 mg tablet 0.5 mg PO DAILY RESTLESS LEGS 08/19/23 tiotropium bromide 2.5 mcg/actuation mist for inhalation (Spiriva Respimat) 2 inh inhalation Q24H SHORTNESS OF BREATH 08/19/23 furosemide 40 mg tablet 20 mg (1/2 x 40 mg) PO DAILY FLUID #30 tabs 08/23/23 nicotine 14 mg/24 hr daily transdermal patch 14 mg transdermal DAILY NICOTINE WITHDRAWAL 30 days #28 ea 08/23/23 potassium chloride 10 mEq capsule,extended release 10 meq PO DAILY #30 caps 08/23/23 guaifenesin 1,200 mg tablet, extended release 12 hr (Mucus Relief ER) 1,200 mg PO BID CONGESTION #0 tabs 09/18/23 ipratropium 0.5 mg-albuterol 3 mg (2.5 mg base)/3 mL nebulization soln 3 ml inhalation Q4H SHORTNESS OF BREATH 09/25/23 acetaminophen 325 mg tablet 650 mg (2 x 325 mg) PO Q6H PRN PRN Pain 1-10 Or Fever >100.7 #0 tabs 09/29/23 clindamycin HCl 150 mg capsule 150 mg PO Q6H #12 caps 09/29/23 metoprolol tartrate 25 mg tablet 12.5 mg (1/2 x 25 mg) PO BID #0 tabs 09/29/23 morphine concentrate 10 mg/0.5 mL oral syringe (FOR ORAL USE ONLY) 5 mg (0.25 mL) PO Q2H PRN PRN dyspnea 2 days #50 ea 09/29/23 prednisone 10 mg tablet 10 mg PO DAILY #40 tabs 09/29/23 Hospital Course Procedures EKG and - (Chest x-ray) Summary of Care Provided Minutes Spent on Discharge: 38 Hospital Course: Mrs. Kingston is a 78-year-old female with severe COPD on 3 and half liters of oxygen at baseline who presented to the emergency department at [facility] on 09/25/2023 from [facility] for increased shortness of breath. She had a recent hospitalization from which she was discharged on 09/18/2023 and was found to have strep pneumo pneumonia and was placed on Omnicef at discharge. Patient reported she had been doing very well however the day prior to presentation she began getting more short of breath. She indicated she was predominantly only having coughing when she was getting breathing treatments but was short of breath before and after. She has completed her steroids and antibiotics after her last hospitalization with a stop date being 09/18/2023. In the emergency department she was found a blood pressure of 90/55 with a respiratory rate of 24 and oxygen saturations of 92% on 4 L nasal cannula. She was mildly tachycardic with heart rates between 110 and 117. There was concern for healthcare associated pneumonia. She indicated to the admitting hospitalist that she had been feeling better until the day prior to presentation when she is slowly became more short of breath. She also reported that she had increasing amounts of productive cough with thick yellow sputum. She denied any fever or chills or chest pain. She was placed on broad-spectrum antibiotics with vancomycin and meropenem given her multiple antibiotic allergies and ordered aggressive pulmonary toilet with DuoNebs, incentive spirometry, and Acapella. Her MRSA PCR was negative so we did discontinue vancomycin. She was maintained on aggressive pulmonary toilet, DuoNebs, incentive spirometry, Acapella and Solu-Medrol throughout her hospitalization. Cultures were all unremarkable but we were not able to obtain a sputum culture due to lack of production. She does have some significant anxiety with shortness of breath and we started some oral Roxanol to which she responded very well. She felt this helped significantly with her air hunger. I had extensive conversation with her with regards to hospice and overall goals of care and she was amenable to going back to hospice. [facility] hospice nurse practitioner came at this morning and got her set up for hospice at [facility]. She is stable for discharge and we will send her to [facility] on hospice services. She was discharged with a prednisone taper, clindamycin to complete antibiotic treatment due to her multiple antibiotic allergies, and Roxanol to assist with air hunger. She was discharged to hospice services at [facility] jail facility on 09/29/2026 in stable condition. 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 Chronic hypoxic and hypercapnic respiratory failure-baseline 3.5 L History of PE Osteoporosis GERD Neuropathy Allergies Depression Anxiety Restless leg syndrome Tobacco abuse Physical Exam Const alert, oriented x3 and no apparent distress; Negative for average body habitus, healthy appearing or well nourished Constitutional Narrative: Cachectic, older, white female, sitting up in bed eating cookies and watching television, appears much older than stated age, no signs of distress, significant temporal wasting General Appearance: cooperative, comfortable, well kempt and well developed Orientation / Consciousness: awake, oriented to person, oriented to place and oriented to time Exam Limitations: no limitations Nutritional Appearance: cachectic HEENT normocephalic, head/scalp atraumatic and moist oral mucous membranes; Negative for hearing grossly normal bilaterally HEENT Narrative: Dentures in place, Mallampati 1, no thrush, mild hearing loss Eyes PERRL and conjunctivae normal Eyes Narrative: No scleral icterus Neck no lymphadenopathy and supple Resp Resp Narrative: No signs of distress, effort is normal, no signs of accessory muscle use or retractions, no current significant tachypnea, breath sounds are markedly diminished but no adventitious sounds noted Cardio regular rate, regular rhythm, S1 normal heart sound, S2 normal heart sound, no murmurs, no rub, no gallops and no clicks GI normal to inspection, nondistended, normoactive bowel sounds, soft to palpation and non-tender GI Narrative: Scaphoid abdomen with prominent pelvic bones Extremity no clubbing, cyanosis or edema Extremity Narrative: Pedal pulses are 2+, significant reduction in lean muscle mass Skin no wounds, skin turgor normal and no jaundice Skin Narrative: Skin is thin and fragile, few scattered ecchymosis Neuro oriented x3, CN's II-XII intact bilaterally, moves all extremities and no focal motor deficits Speech: speech normal Psych affect normal Psych Narrative: Very pleasant, interacts appropriately Medical Records Data Medical Nutrition Assessment Dietitian: Malnutrition Criteria Met Start: 09/26/23 12:14 Freq: Status: Active Protocol: Document 09/26/23 12:15 (Rec: 09/26/23 12:15 [id number]) Nutrition Malnutrition Evidence of Malnutrition Exists Yes Malnutrition (severe): Chronic Evidenced By Suboptimal Energy Intake ( Severe),Physical Changes ( Severe) Clinical Problem Chronic Disease or Condition Related Malnutrition Etiology severe, chronic malnutrition related to inadequate energy intake w/ increased energy needs d/t chronic resp. failure Signs/Symptoms as evidenced by estimated PO intake meeting <75% of estimated energy needs > 3 months, severe muscle wasting/ fat loss evident per physical exam in orbital, temporal, and clavicle areas, BMI 15.1 Status Active Problem Recommendation Dietitian Recommendations/Changes continue regular diet as tolerated; 120ml ensure plus high protein 4x/day w/ medpass given evidence of malnutrition Weight / BMI Weight Weight: 38.555 kg Body Mass Index (BMI) 15.0 ABG / Lab / Microbiology Data 09/28/23 08:10 09/28/23 08:10 Laboratory: Laboratory Results - last 24 hr 09/28/23 08:10: Platelet Estimate MOD INC, Hypochromasia RARE, Poikilocytosis 1+, Anisocytosis 1+, Macrocytosis 1+, Sodium 141, Potassium 4.5, Chloride 98, Carbon Dioxide 42.0 H, Anion Gap 1 L, BUN 19 H, Creatinine 0.20 L, Estim Creat Clear Calc 28.68, Est GFR (MDRD) Af Amer 435, Est GFR (MDRD) Non-Af 360, BUN/Creatinine Ratio 93.6 H, Glucose 96, Calcium 8.8 Microbiology: Microbiology 09/25/23 14:16 Blood Culture (Wb) - Left Hand Blood Culture - Preliminary No growth in 48 hours. 09/25/23 14:11 Blood Culture (Wb) - Anticubital Left Blood Culture - Preliminary No growth in 48 hours. 09/25/23 16:30 Mucosa - Nasopharyngeal Coronavirus COVID-19 PCR - Final 09/25/23 16:30 Mucosa - Nasopharyngeal Respiratory Panel (PCR) - Final 09/25/23 Unknown Urine, Random Legionella Antigen - Final 09/25/23 Unknown Urine, Random Streptococcus pneumoniae Antigen (M - Final D/C Instructions Discharge Diet: No restrictions Meaningful Use Info Meaningful Use Diagnoses (Choose all that apply): None applicable Discharge Plan Admission Admit Date/Time: 09/25/23 14:30 Primary Reason for Your Visit: Shortness of Breath Attending Provider: Essence Anne Primary Care Provider: Cassandra Iqbal Consulting Providers: Alda Gan Discharge Orders/Prescriptions Prescriptions: New morphine concentrate 10 mg/0.5 mL Syringe 5 mg PO Q2H PRN PRN (Reason: dyspnea) 2 Days Qty: 50 0RF prednisone 10 mg tablet 10 mg PO DAILY Qty: 40 0RF Rx Instructions: 4 tablets x 4 days, 3 tablets x 4 days, 2 tablets x 4 days, 1 tablet x 4 days clindamycin HCl 150 mg capsule 150 mg PO Q6H Qty: 12 0RF acetaminophen 325 mg Tablet 650 mg PO Q6H PRN PRN (Reason: Pain 1-10 Or Fever >100.7) Qty: 0 0RF metoprolol tartrate 25 mg Tablet 12.5 mg PO BID Qty: 0 0RF Continued famotidine 40 tablet 40 mg PO DAILY fbfjrzxbfuyg-vnbtzhii-oxkoec Tablet 1 tab PO DAILY citalopram 20 mg tablet 20 mg PO QHS loratadine 10 mg Tablet 10 mg PO DAILY fluticasone furoate-vilanterol [Breo Ellipta] 200-25 mcg/dose blister with device 1 inh INHALATION BID fluticasone propionate 50 mcg/actuation spray,suspension 1 spray INTRANASAL BID sennosides-docusate sodium [2-in-1 Laxative] 8.6-50 mg tablet 2 tab-cap PO QHS ropinirole 0.5 mg tablet 0.5 mg PO DAILY omeprazole 20 mg capsule,delayed release(DR/EC) 20 mg PO DAILY gabapentin 300 mg capsule 300 mg PO BID Spiriva Respimat 2.5 mcg/actuation mist 2 inh INHALATION Q24H nicotine 14 mg/24 hr Patch 24 Hour 14 mg transdermal DAILY 30 Days Qty: 28 0RF potassium chloride 10 mEq capsule, extended release 10 meq PO DAILY Qty: 30 0RF furosemide 40 MG tablet 20 mg PO DAILY Qty: 30 0RF guaifenesin [Mucus Relief ER] 1,200 mg Tablet Extended Release 12hr 1,200 mg PO BID Qty: 0 0RF ipratropium-albuterol 0.5 mg-3 mg(2.5 mg base)/3 mL Solution For Nebulization 3 ml inhalation Q4H Discontinued aspirin 81 mg Tablet,Delayed Release (Dr/Ec) 81 mg PO DAILY ferrous sulfate [FeroSul] 325 mg (65 mg iron) tablet 325 mg PO BID Referrals / Follow Up: Cassandra Iqbal MD [Primary Care Provider] - Cassandra Iqbal MD [[facility]] - Disposition Disposition (needs filled in before D/C Order can be placed): Hospice in Medical Facility Charges/Coding Visit Charges Inpatient E&M: 38328 SNF Disch >30 Min
--- NOTE | 2023-09-29 08:59 | PCM.TXEXTCAR ---
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 (3) Pneumonia: Status: Acute Code(s): J18.9 - Pneumonia, unspecified organism (4) Leukocytosis: Status: Acute Code(s): D72.829 - Elevated white blood cell count, unspecified (5) COPD with acute exacerbation: Status: Chronic Code(s): J44.1 - Chronic obstructive pulmonary disease with (acute) exacerbation (6) Chronic hypoxic respiratory failure: Status: Chronic Code(s): J96.11 - Chronic respiratory failure with hypoxia Allergies/Procedures Done in Hospital Allergies bupropion HCl [From Wellbutrin] Allergy (Verified 08/19/23 12:57) Anaphylaxis only if doesnt take her brand from home cephalexin monohydrate [From Keflex] Allergy (Verified 09/12/23 15:45) Anaphylaxis throat swelling and vomiting levofloxacin Allergy (Verified 09/12/23 15:45) Anaphylaxis states she cant remember the reaction Penicillins [PCN] Allergy (Verified 09/12/23 15:45) Anaphylaxis swelling and a reaction Procedures: EKG and - (Chest x-ray) Type of Care/Length of Stay Estimated LOS: More Than 30 Days Type of Care Needed: Intermediate Rehab Potential: Poor Prognosis: Poor Additional Orders/Day of Discharge Day of Discharge: 09/29/23 Dietary and Speech Recommendations Dietitian Recommendations/Changes: continue regular diet as tolerated; 120ml ensure plus high protein 4x/day w/ medpass given evidence of malnutrition Discharge Plan Admission Admit Date/Time: 09/25/23 14:30 Primary Reason for Your Visit: Shortness of Breath Attending Provider: Essence Anne Primary Care Provider: Cassandra Iqbal Consulting Providers: Alda Gan Discharge Orders/Prescriptions Prescriptions: New morphine concentrate 10 mg/0.5 mL Syringe 5 mg PO Q2H PRN PRN (Reason: dyspnea) 2 Days Qty: 50 0RF prednisone 10 mg tablet 10 mg PO DAILY Qty: 40 0RF Rx Instructions: 4 tablets x 4 days, 3 tablets x 4 days, 2 tablets x 4 days, 1 tablet x 4 days clindamycin HCl 150 mg capsule 150 mg PO Q6H Qty: 12 0RF acetaminophen 325 mg Tablet 650 mg PO Q6H PRN PRN (Reason: Pain 1-10 Or Fever >100.7) Qty: 0 0RF metoprolol tartrate 25 mg Tablet 12.5 mg PO BID Qty: 0 0RF Continued famotidine 40 tablet 40 mg PO DAILY [id number] Tablet 1 tab PO DAILY citalopram 20 mg tablet 20 mg PO QHS loratadine 10 mg Tablet 10 mg PO DAILY fluticasone furoate-vilanterol [Breo Ellipta] 200-25 mcg/dose blister with device 1 inh INHALATION BID fluticasone propionate 50 mcg/actuation spray,suspension 1 spray INTRANASAL BID sennosides-docusate sodium [2-in-1 Laxative] 8.6-50 mg tablet 2 tab-cap PO QHS ropinirole 0.5 mg tablet 0.5 mg PO DAILY omeprazole 20 mg capsule,delayed release(DR/EC) 20 mg PO DAILY gabapentin 300 mg capsule 300 mg PO BID Spiriva Respimat 2.5 mcg/actuation mist 2 inh INHALATION Q24H nicotine 14 mg/24 hr Patch 24 Hour 14 mg transdermal DAILY 30 Days Qty: 28 0RF potassium chloride 10 mEq capsule, extended release 10 meq PO DAILY Qty: 30 0RF furosemide 40 MG tablet 20 mg PO DAILY Qty: 30 0RF guaifenesin [Mucus Relief ER] 1,200 mg Tablet Extended Release 12hr 1,200 mg PO BID Qty: 0 0RF ipratropium-albuterol 0.5 mg-3 mg(2.5 mg base)/3 mL Solution For Nebulization 3 ml inhalation Q4H Discontinued aspirin 81 mg Tablet,Delayed Release (Dr/Ec) 81 mg PO DAILY ferrous sulfate [FeroSul] 325 mg (65 mg iron) tablet 325 mg PO BID Referrals / Follow Up: Cassandra Iqbal MD [Primary Care Provider] - Cassandra Iqbal MD [[facility]] - Disposition Disposition (needs filled in before D/C Order can be placed): Hospice in Medical Facility
[2023-09-29] MEDS: Ensure Plus High Protein 120 ML LIQUID PO (09:59)
[2023-09-29] MEDS: Gabapentin 300 MG Capsule PO (09:59)
[2023-09-29] MEDS: Meropenem 1 GM in 0.9% Normal Saline (100mL MB+) 100 ML IV (10:02)
[2023-09-29] MEDS: 0.9% Saline Lock 10 ML Syringe IV (10:18)
[2023-09-29] MEDS: Heparin Injection (Vial) 5,000 UNIT/ML VIAL 5000 UNIT SC (10:18)
[2023-09-29] MEDS: Metoprolol Tartrate 25 MG Tablet 12.5 MG PO (10:19)
[2023-09-29] MEDS: guaiFENesin 1,200 MG Tablet 1200 MG PO (10:19)
[2023-09-29] MEDS: Potassium Chloride Oral Tablet 10 MEQ PO (10:19)
[2023-09-29] MEDS: Pramipexole Di-HCl 0.25 MG Tablet PO (10:23)
[2023-09-29] MEDS: Furosemide 20 MG Tablet PO (10:23)
[2023-09-29] MEDS: Pantoprazole Sodium 20 MG Tablet PO (10:23)
[2023-09-29] MEDS: morphine (oral solution) 10MG/0.5ML Syringe 5 MG PO (10:40)
== END 2023-09-29 11:25 | disposition hospice, inpatient (51) | DRG 193 ==
LOC: ED 14:25 → PCU 14:38
PROVIDERS: Admitting Provider Internal Medicine; Emergency Provider Emergency Medicine; PCP Internal Medicine; Visit Provider Internal Medicine
DX: J18.9 Pneumonia, unspecified organism (principal); E43 Unspecified severe protein-calorie malnutrition; R64 Cachexia; J96.11 Chronic respiratory failure with hypoxia; D68.59 Other primary thrombophilia; J44.0 Chronic obstructive pulmonary disease with (acute) lower respiratory infection; J44.1 Chronic obstructive pulmonary disease with (acute) exacerbation; Z68.1 Body mass index [BMI] 19.9 or less, adult; D64.9 Anemia, unspecified; G25.81 Restless legs syndrome; F32.A Depression, unspecified; K21.9 Gastro-esophageal reflux disease without esophagitis; E78.00 Pure hypercholesterolemia, unspecified; G62.9 Polyneuropathy, unspecified; F41.9 Anxiety disorder, unspecified; F17.210 Nicotine dependence, cigarettes, uncomplicated; Z79.51 Long term (current) use of inhaled steroids; Z80.0 Family history of malignant neoplasm of digestive organs; Z79.82 Long term (current) use of aspirin; Y95 Nosocomial condition; Z79.52 Long term (current) use of systemic steroids; Z66 Do not resuscitate; Z51.5 Encounter for palliative care; M81.0 Age-related osteoporosis without current pathological fracture; Z86.711 Personal history of pulmonary embolism
CPT/HCPCS: 36415; 71045; 80048; 80053; 80202; 83605; 83880; 84484; 85025; 87040; 87449; 87633; 87635; 87641; 93005; 94640; 94668; 97162; 97166; 99252; 99285; J2185; J7030; J7040; A4216; G0463; J2405